=== PATIENT | female | born 1950 | race Caucasian/White ===

== ENCOUNTER 2021-01-12 08:22 | Inpatient (IN) | payer OTHER, SELFPAY ==
[2021-01-12] VITALS (15 sets, daily range): BP systolic 123–214; BP diastolic 37–92; PULSE 63–117; RESP 16–21; TEMP 36.6–37.3; O2SAT 89–100; BMI 48.4
--- NOTE | 2021-01-12 | ECG_ITS ---
Test Reason : REPEAT Blood Pressure : / mmHG Vent. Rate : 069 BPM Atrial Rate : 069 BPM P-R Int : 188 ms QRS Dur : 090 ms QT Int : 400 ms P-R-T Axes : 051 -11 036 degrees QTc Int : 428 ms Normal sinus rhythm Septal infarct (cited on or before 08-SEP-2008) Left axis deviation Abnormal ECG When compared with ECG of 12-JAN-2021 10:11, Vent. rate has decreased BY 49 BPM Questionable change in initial forces of Anterior leads Referred By: Anne-Marie Hollingsworth Electronically Signed By:MARGIE HARRINGTON MD
--- NOTE | ~2021-01-12 | XR_ITS ---
EXAMINATION: XR CHEST CLINICAL INFORMATION: Dyspnea. COMPARISON: Chest 07/24/2012 TECHNIQUE: 2 views of the chest were obtained. FINDINGS: The lungs are hypoexpanded with no acute pneumonic process seen. The pulmonary vascularity is increased. The heart size is enlarged. Bone windows mild spondylosis. XR/XR chest 2V IMPRESSION: Mild cardiomegaly with. Mild increased pulmonary vascularity question early congestion. Correlate with clinical exam. No acute pneumonic process.
--- NOTE | ~2021-01-12 | CT_ITS ---
EXAMINATION: CT HEAD WITHOUT CONTRAST CLINICAL INFORMATION: Confusion. Fall COMPARISON: None. TECHNIQUE: Multidetector CT examination of the head is performed without contrast. This CT examination was performed using dose optimization techniques as appropriate, variously including the following: *Automated exposure control *Adjustment of mA and/or kV according to patient size (this includes techniques or standardized protocols for targeted exams where dose is matched to indication/reason for exam; i.e. extremities or head) *Use of iterative reconstruction technique DLP: 670 mGy-cm FINDINGS: Study limited by motion artifact There is no evidence of a recent intracranial hemorrhage or extra-axial collection. The midline structures are nondisplaced. The ventricles, cisterns, and sulci are within normal limits. There is no evidence of an intra-axial mass. There are no suspicious focal areas of abnormal brain attenuation. The romero-white interface is within normal limits. There is no evidence of acute territorial infarct. The paranasal sinuses and mastoids are within normal limits. CT/CT head/brain wo con IMPRESSION: 1. There is no evidence of a recent intracranial hemorrhage. 2. No acute infarct. 3. There is some motion artifact.
--- NOTE | ~2021-01-12 | XR_ITS ---
EXAMINATION: XR CHEST CLINICAL INFORMATION: Low oxygen saturation. COMPARISON: Most recent chest radiograph dated 01/12/2021 TECHNIQUE: Frontal view of the chest was obtained. FINDINGS: Hypoinflation of the lungs with interstitial prominence and patchy left lower lobe airspace opacities, which may represent atelectasis versus early infiltrates. Findings are similar when compared to the prior examination. No pleural effusion or pneumothorax. Stable cardiomediastinal silhouette. XR/XR chest 1V IMPRESSION: Interstitial prominence with patchy left lower lobe airspace opacities, similar when compared to the prior examination.
--- NOTE | ~2021-01-12 | XR_ITS ---
EXAMINATION: XR TIBIA AND FIBULA, RIGHT CLINICAL INFORMATION: Deformity COMPARISON: Radiographs from 12/20/2015 TECHNIQUE: AP and lateral views of the right tibia and fibula were obtained. FINDINGS: At the level of the knee, osteophytes and subchondral cysts are noted at the degenerated patellofemoral compartment. Small marginal osteophytes are present at the lateral tibiofemoral compartment. An oblique fracture of the distal fibular metadiaphysis (Stevenson B injury) is new compared to 12/20/2015. Although fracture lucency is seen, there is also mature appearing periosteal new bone formation, which indicates that this is a more subacute or chronic injury. Also, there is a medially displaced fracture of the medial malleolus and probable posterior malleolar fragment, not optimally visualized on these radiograph focused on the entire extremity rather than the ankle. The relatively smooth margins of the medial malleolar fragment suggests that this is from more remote trauma. There is medial displacement of the talus with the medial malleolar fragment. Recommend obtaining radiographs focused on the ankle. Peripheral vessels are calcified. XR/XR tibia fibula RT 2V IMPRESSION: There are fractures of the distal tibia and fibula that are new compared to 12/20/2015 but do not have an acute appearance. Query if there is any known date of trauma in the last several months. The talus is laterally displaced along with the medial malleolar fragment. Recommend acquiring radiographs focused on the ankle. Mild osteoarthritis of the patellofemoral and lateral tibiofemoral compartment of the right knee.
--- NOTE | ~2021-01-12 | CT_ITS ---
EXAMINATION: CT ABDOMEN AND PELVIS WITHOUT CONTRAST CLINICAL INFORMATION: Abdominal pain, nausea and vomiting. COMPARISON: None TECHNIQUE: Multidetector volumetric imaging was performed from the superior aspect of the liver through the pubic symphysis. Sagittal and coronal reformatted images were obtained on the technologist's workstation. This CT examination was performed using dose optimization techniques as appropriate, variously including the following: *Automated exposure control *Adjustment of mA and/or kV according to patient size (this includes techniques or standardized protocols for targeted exams where dose is matched to indication/reason for exam; i.e. extremities or head) *Use of iterative reconstruction technique DLP: 1156 mGy-cm FINDINGS: LOCALIZER IMAGES: Obese body habitus. LUNG BASES: Mild atelectasis in dependent aspect of each lower lobe. Mitral valve annulus is calcified. There is atherosclerotic calcification of coronary arteries. Scattered calcifications and fibroglandular tissue of the breasts. There is likely chronic dystrophic calcification of the left breast from prior carcinoma treatment. There is mild skin thickening of the left breast. Note that there are no recent breast imaging exams available in the electronic picture archive. LIVER: The liver has normal size, shape, and attenuation. No evidence of liver mass. GALLBLADDER AND BILIARY TREE: Gallbladder is surgically absent. No bile duct dilatation. PANCREAS: There is moderate atrophy of the pancreas. No edema, pancreatic ductal dilatation or mass. SPLEEN: Normal. ADRENAL GLANDS: Normal. KIDNEYS AND URETERS: Mild bilateral renal cortical atrophy. The kidneys have lobulated contour. No noncontrast imaging evidence of renal mass. The renal arteries are calcified. No nephrolithiasis or hydroureteronephrosis. BLADDER: Normal. No calculi or wall thickening. BOWEL AND PERITONEUM: Prior gastric surgery with staple line observed along the proximal stomach. There is no evidence of gastric wall thickening. No dilated bowel loops. No overt findings of acute inflammatory change or obstruction along the gastrointestinal tract. The appendix is normal. ABDOMINAL WALL: There is edema of subcutaneous tissues of the abdominal wall, particularly the lower abdominal wall pannus and left flank. No focal fluid collection. There are fat-containing epigastric hernias of the anterior abdominal wall. Also, further inferiorly at the level of the umbilicus, there is a 12.5 x 5 x 9.3 cm hernia sac that contains fat and unobstructed small bowel. VASCULATURE: The abdominal aorta and branch vessels are calcified. No aortic aneurysm. No retroperitoneal hematoma. LYMPH NODES: No pathologic sized lymph nodes in the abdomen or pelvis. No inguinal lymphadenopathy. PELVIC VISCERA: No significant findings. There appears to be a nabothian cyst of the posterior cervix. No adnexal mass or pelvic free fluid. SKELETAL: Bones are diffusely osteopenic. Multilevel disc degenerative changes with vacuum disc phenomenon and osteophytes of the visualized lower thoracic spine. Chronic, severe degenerative disc disease at L5-S1. Facet arthropathy and mild, grade 1 anter[address]isthesis at L4-L5. CT/CT abdomen pelvis wo con IMPRESSION: * Morbid obesity with findings of edema in subcutaneous tissues of the abdominal wall and left flank. No focal fluid collection. * There are several midline abdominal wall hernias, largest at level of umbilicus containing fat and unobstructed small bowel. * The calcifications and mild skin thickening of the left breast are likely sequela of prior treatment for breast carcinoma. * There is extensive vascular calcifications, including renal arteries. Both kidneys are mildly atrophied. No evidence of nephrolithiasis or hydroureteronephrosis.
--- NOTE | ~2021-01-12 | NM_ITS ---
Myocardial perfusion study Indication: NSTEMI Technique: The patient was brought in for a Lexiscan perfusion study on 01/15/2021. Patient performed low-level exercise and was injected 0.4 mg of Lexiscan intravenously. Within a minute of injection, 45 mCi of sestamibi was given intravenously. Images were obtained using the SPECT gamma camera interlaced with the gating device. Images were obtained in supine position. Resting perfusion study was performed on 01/14/2021. Patient was administered 45 mCi of sestamibi intravenously at rest. Images were then obtained in supine position. Images obtained with and without CT attenuation. Total DLP 195 mGy-cm. Images were processed with the software and compared side to side in short axis, horizontal long axis and vertical long axis views. Findings: The stress perfusion study showed nonattenuated images show absent uptake in the distal septal, severely reduced uptake in the septum and mildly reduced uptake in the distal anterior and apex of the LV myocardium. The anterolateral, lateral, inferolateral and inferior wall are normally perfused. Attenuation corrected images show absent uptake in the apex and distal septum as well as moderately reduced uptake in the septum of the LV myocardium.. The gated study shows normal LV systolic function with calculated LVEF of 59%. LV cavity is mildly dilated size. The gated study shows reduced wall thickening and contraction of anteroseptal and apical segments. Resting study shows nontender images show improved uptake in the septum as well as the apex of the LV myocardium.. Gating at rest reveals anteroseptal wall motion abnormality with ejection fraction at 56%. The findings are consistent with septal as well as apical ischemia in mid to distal LAD territory. NM/NM radha perf SPECT rest & str Impression: 1. Myocardial perfusion imaging study shows septal and apical ischemia in mid to distal LAD territory 2. Gated LVEF is 59% with stress and 66% with stress 3. Transient ischemic dilatation present EKG is nondiagnostic for ischemia
--- NOTE | 2021-01-12 09:01 | ECG_ITS ---
Test Reason : WEAKNESS Blood Pressure : / mmHG Vent. 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
--- NOTE | 2021-01-12 09:03 | ED_ITS ---
HPI - General Adult General Chief complaint: Weakness Stated complaint: WEAKNESS/2FALLS Time Seen by Provider: 01/12/21 08:46 Source: patient and old records reviewed Limitations: altered mental status History of Present Illness HPI narrative: Patient from home. Apparently with a history of insulin- dependent diabetes and hypertension, presents after she fell last night. Apparently she lives alone. Per EMS her house is very disheveled. She has a history of transmetatarsal amputation of the left foot secondary to diabetes per patient. She is somewhat somnolent and confused and unable to provide details of when the issue started. She states she has been feeling weak and tired. Positive dyspnea for unclear duration. She denies fevers or chills. She denies urinary symptoms. She states she has been vaccinated against COVID but does not know when Related Data Home Medications Medication Instructions Recorded Confirmed Lasix 40 mg PO DAILY 01/12/21 01/12/21 atorvastatin 80 mg tablet 1 tab PO DAILY 01/12/21 01/12/21 dulaglutide 0.75 mg/0.5 mL 0.5 ml SUBCUT QWEEK 01/12/21 01/12/21 subcutaneous pen injector (Trulicity) insulin lispro 100 unit/mL 50 unit SUBCUT TID 01/12/21 01/12/21 subcutaneous pen (Humalog KwikPen (U-100) Insulin) omeprazole 20 mg PO DAILY 01/12/21 01/12/21 Previous Rx's Medication Instructions Recorded isosorbide mononitrate 30 mg 30 mg PO DAILY #90 tab 04/25/20 tablet,extended release 24 hr nitroglycerin 0.4 mg sublingual 0.4 mg SUBLINGUAL Q5M PRN 30 Days 11/11/20 tablet #25 tab Allergies Allergy/AdvReac Type Severity Reaction Status Date / Time Sulfa (Sulfonamide Allergy Mild LOOPY, Verified 01/12/21 09:28 Antibiotics) memory Review of Systems Review of Systems: Patient very vague in unable to complete accurate review of systems Constitutional: Constitutional: Reports fatigue Endocrine: Endocrine: Reports fatigue PMFSH Past Medical History Medical History Amputation of left foot CAD (coronary artery disease) Diabetes High cholesterol HTN (hypertension) Kidney disease Social History Social History Patient Tobacco Use Status: Never used Tobacco Use of substances other than those prescribed or required for medical reasons: No Advance Directives: No Advance Directives Information Provided: No Physical Exam Vital Signs: Vital Signs: Last Vital Signs Temp 98.0 F 01/12/21 13:35 Pulse 92 01/12/21 14:45 Resp 16 01/12/21 13:47 BP 199/76 H 01/12/21 14:45 Pulse Ox 98 01/12/21 13:35 Body Mass Index 48.4 Const: Other: Obese patient. Mildly tachypneic. Verbal but confused HENMT: Other: Normocephalic atraumatic without obvious signs of external trauma Eyes: Other: Pupils equal round reactive to light Neck: Other: No meningismus Resp: Other: Tachypnea. Clear bilaterally Cardio: Other: Tachycardic. No murmurs rubs or gallops GI: Other: Soft nontender nondistended. Normoactive bowel sounds Skin: Other: Warm pink and dry. Bilateral lower leg wraps. Skin proximal to the wraps without erythema Neuro: Other: Patient is confused. Nonfocal however Course Course Course Narrative: Mental status change with recent fall. Intracranial hemorrhage Sepsis Renal failure Liver failure Hepatic encephalopathy Electrolyte imbalance Dehydration Diabetic ketoacidosis Hyperosmolar nonketotic hyperglycemic state Treated with IV fluids Await labs Workup so far significant for labs that show an elevated white count. Glucose is 600. High sensitivity troponin is 2300. Troponin repeated and await delta. EKG shows sinus rhythm without ST elevation or depression. Patient denies chest pain at this time. Her chest x-ray shows mild vascular congestion. Blood pressure is still elevated to 208/78. Despite this patient appear septic. Lactic acid is slightly above 2. After run wrapping her legs, her left leg is clearly cellulitic. Warm erythematous from the foot to the knee. There is approximately a 2.5 cm by 2.5 cm acute wound on her heel. No active drainage at the moment, but likely the source of her cellulitis Will treat with nitropaste and aspirin for hypertension and pulmonary c ongestion. I hesitate to give diuretics at this time given mixed picture with probable infection and volume depletion. Will also not treated with full sepsis bolus as lactic acid is not above 4 and s he is not hypotensive. And she has pulmonary congestion on the x-ray as well. 11:57 a.m.. Case discussed with Cardiology, Dr. Caban. Will start heparin therapy. Medical Decision Making MDM Narrative Medical decision making narrative: Critical care time secondary to high acuity patient with likely mixed picture of hyperglycemia, sepsis, and myocardial strain in the setting of mild pulmonary edema. Treated with broad-spectrum antibiotics. Repeat troponins. And hospitalization Lab Data Result diagrams: 01/12/21 13:27 01/12/21 09:25 Labs: Lab Results 01/12/21 01/12/21 01/12/21 Range/Units 09:25 09:25 09:25 WBC 16.1 H (4.8-10.8) X10*3/uL RBC 4.81 (4.20-5.50) X10*6/uL Hgb 14.5 (12.0-16.0) g/dl Hct 45.0 (37-47) % MCV 93.6 (80-98) fL MCH 30.1 (27.0-33.0) pg MCHC 32.2 (31.0-35.0) g/dl RDW 13.2 (11.0-16.0) % Plt Count 255 (160-400) X10*3/uL MPV 11.5 (9.4-12.3) fL Immature Gran % (Auto) 0.4 (0.0-0.4) % Neut % (Auto) 90.5 H (45-73) % Lymph % (Auto) 4.5 L (20-40) % [place] % (Auto) 4.4 (2-11) % Eos % (Auto) 0.0 (0-4) % Baso % (Auto) 0.2 (0-2) % Lymph # (Auto) 0.7 L (1.2-4.9) X10*3/uL [place] # (Auto) 0.7 (0.1-1.2) X10*3/uL Eos # (Auto) 0.0 (0.0-0.4) X10*3/uL Baso # (Auto) 0.0 (0.0-0.2) X10*3/uL Abs Immat Gran (auto) 0.07 H (0.00-0.03) X10*3/uL Absolute Neuts (auto) 14.6 H (2.0-8.3) X10*3/uL Absolute Nucleated RBC 0.000 (0.0-0.012) X10*3/uL Nucleated RBC % (auto) 0.0 (0.0-0.2) /100WBC Smear Tech's Comments VERIFIED ESR (0-20) MM/HR PT (9.9-13.0) SEC INR (0.9-1.1) PTT (Heparin Protocol) (53-77.9) SEC VBG pH (7.32-7.43) VBG pCO2 mmHg VBG pO2 mmHg VBG HCO3 (22-26) mmol/L VBG O2 Saturation % VBG Base Excess mmol/L Sodium 133 L (135-145) mmol/L Potassium 5.1 (3.3-5.1) mmol/L Chloride 97 (96-108) mmol/L Carbon Dioxide 24 (22-29) mmol/L Anion Gap 17 (12-20) BUN 30 H (9-16) mg/dL Creatinine 2.22 H (0.5-1.4) mg/dL Estim Creat Clear Calc 33.0 Estimated GFR 22 POC Glucose (60-115) mg/dL Random Glucose 602 H* (60-115) mg/dL Estimat Average Glucose mg/dL Hemoglobin A1c % % Lactic Acid 2.1 H* (0.5-2.0) mmol/L Lactic Acid Fup @ 2Hr (0.5-2.0) mmol/L Calcium 9.7 (8.4-10.2) mg/dL Total Bilirubin 1.3 H (0.0-1.0) mg/dL AST 30 (5-31) U/L ALT 11 (0-31) U/L Alkaline Phosphatase 109 (39-117) U/L Ammonia (13-55) umol/L Total Creatine Kinase 336 H (26-140) U/L Troponin I High Sens (<3.5-17.0) ng/L C-Reactive Protein 25.59 H (< or = 0.50) mg/dL B-Natriuretic Peptide (<100) pg/mL Total Protein 7.8 (6.5-8.0) g/dL Albumin 3.6 (3.5-5.0) g/dL Lipase 10 (8-78) U/L Procalcitonin ng/mL Urine Color Urine Appearance Urine pH (5.0-8.0) Ur Specific [place] (1.005-1.025) Urine Protein (NEG-TRACE) MG/DL Urine Glucose (UA) (NEG) MG/DL Urine Ketones (NEG) MG/DL Urine Blood (NEG) Urine Nitrite (NEG) Ur Leukocyte Esterase (NEG) Urine RBC (0) /HPF Urine WBC (0-4) /HPF Ur Squamous Epith Cells /LPF Urine Bacteria /LPF Acetone, Qual (Negative) Coronavirus (PCR) (Negative) Influenza Type A (PCR) (Negative) Influenza Type B (PCR) (Negative) RSV RNA Qual (PCR) (Negative) 01/12/21 01/12/21 01/12/21 Range/Units 09:25 09:25 09:25 WBC (4.8-10.8) X10*3/uL RBC (4.20-5.50) X10*6/uL Hgb (12.0-16.0) g/dl Hct (37-47) % MCV (80-98) fL MCH (27.0-33.0) pg MCHC (31.0-35.0) g/dl RDW (11.0-16.0) % Plt Count (160-400) X10*3/uL MPV (9.4-12.3) fL Immature Gran % (Auto) (0.0-0.4) % Neut % (Auto) (45-73) % Lymph % (Auto) (20-40) % [place] % (Auto) (2-11) % Eos % (Auto) (0-4) % Baso % (Auto) (0-2) % Lymph # (Auto) (1.2-4.9) X10*3/uL [place] # (Auto) (0.1-1.2) X10*3/uL Eos # (Auto) (0.0-0.4) X10*3/uL Baso # (Auto) (0.0-0.2) X10*3/uL Abs Immat Gran (auto) (0.00-0.03) X10*3/uL Absolute Neuts (auto) (2.0-8.3) X10*3/uL Absolute Nucleated RBC (0.0-0.012) X10*3/uL Nucleated RBC % (auto) (0.0-0.2) /100WBC Smear Tech's Comments ESR (0-20) MM/HR PT (9.9-13.0) SEC INR (0.9-1.1) PTT (Heparin Protocol) (53-77.9) SEC VBG pH (7.32-7.43) VBG pCO2 mmHg VBG pO2 mmHg VBG HCO3 (22-26) mmol/L VBG O2 Saturation % VBG Base Excess mmol/L Sodium (135-145) mmol/L Potassium (3.3-5.1) mmol/L Chloride (96-108) mmol/L Carbon Dioxide (22-29) mmol/L Anion Gap (12-20) BUN (9-16) mg/dL Creatinine (0.5-1.4) mg/dL Estim Creat Clear Calc Estimated GFR POC Glucose (60-115) mg/dL Random Glucose (60-115) mg/dL Estimat Average Glucose mg/dL Hemoglobin A1c % % Lactic Acid (0.5-2.0) mmol/L Lactic Acid Fup @ 2Hr (0.5-2.0) mmol/L Calcium (8.4-10.2) mg/dL Total Bilirubin (0.0-1.0) mg/dL AST (5-31) U/L ALT (0-31) U/L Alkaline Phosphatase (39-117) U/L Ammonia 24 (13-55) umol/L Total Creatine Kinase (26-140) U/L Troponin I High Sens 2302.6 H* (<3.5-17.0) ng/L C-Reactive Protein (< or = 0.50) mg/dL B-Natriuretic Peptide 551 H (<100) pg/mL Total Protein (6.5-8.0) g/dL Albumin (3.5-5.0) g/dL Lipase (8-78) U/L Procalcitonin ng/mL Urine Color Urine Appearance Urine pH (5.0-8.0) Ur Specific [place] (1.005-1.025) Urine Protein (NEG-TRACE) MG/DL Urine Glucose (UA) (NEG) MG/DL Urine Ketones (NEG) MG/DL Urine Blood (NEG) Urine Nitrite (NEG) Ur Leukocyte Esterase (NEG) Urine RBC (0) /HPF Urine WBC (0-4) /HPF Ur Squamous Epith Cells /LPF Urine Bacteria /LPF Acetone, Qual (Negative) Coronavirus (PCR) NEGATIVE (Negative) Influenza Type A (PCR) NEGATIVE (Negative) Influenza Type B (PCR) NEGATIVE (Negative) RSV RNA Qual (PCR) NEGATIVE (Negative) 01/12/21 01/12/21 01/12/21 Range/Units 09:25 09:25 11:05 WBC (4.8-10.8) X10*3/uL RBC (4.20-5.50) X10*6/uL Hgb (12.0-16.0) g/dl Hct (37-47) % MCV (80-98) fL MCH (27.0-33.0) pg MCHC (31.0-35.0) g/dl RDW (11.0-16.0) % Plt Count (160-400) X10*3/uL MPV (9.4-12.3) fL Immature Gran % (Auto) (0.0-0.4) % Neut % (Auto) (45-73) % Lymph % (Auto) (20-40) % [place] % (Auto) (2-11) % Eos % (Auto) (0-4) % Baso % (Auto) (0-2) % Lymph # (Auto) (1.2-4.9) X10*3/uL [place] # (Auto) (0.1-1.2) X10*3/uL Eos # (Auto) (0.0-0.4) X10*3/uL Baso # (Auto) (0.0-0.2) X10*3/uL Abs Immat Gran (auto) (0.00-0.03) X10*3/uL Absolute Neuts (auto) (2.0-8.3) X10*3/uL Absolute Nucleated RBC (0.0-0.012) X10*3/uL Nucleated RBC % (auto) (0.0-0.2) /100WBC Smear Tech's Comments ESR (0-20) MM/HR PT (9.9-13.0) SEC INR (0.9-1.1) PTT (Heparin Protocol) (53-77.9) SEC VBG pH (7.32-7.43) VBG pCO2 mmHg VBG pO2 mmHg VBG HCO3 (22-26) mmol/L VBG O2 Saturation % VBG Base Excess mmol/L Sodium (135-145) mmol/L Potassium (3.3-5.1) mmol/L Chloride (96-108) mmol/L Carbon Dioxide (22-29) mmol/L Anion Gap (12-20) BUN (9-16) mg/dL Creatinine (0.5-1.4) mg/dL Estim Creat Clear Calc Estimated GFR POC Glucose (60-115) mg/dL Random Glucose (60-115) mg/dL Estimat Average Glucose mg/dL Hemoglobin A1c % % Lactic Acid (0.5-2.0) mmol/L Lactic Acid Fup @ 2Hr (0.5-2.0) mmol/L Calcium (8.4-10.2) mg/dL Total Bilirubin (0.0-1.0) mg/dL AST (5-31) U/L ALT (0-31) U/L Alkaline Phosphatase (39-117) U/L Ammonia (13-55) umol/L Total Creatine Kinase (26-140) U/L Troponin I High Sens 3431.0 H* (<3.5-17.0) ng/L C-Reactive Protein (< or = 0.50) mg/dL B-Natriuretic Peptide (<100) pg/mL Total Protein (6.5-8.0) g/dL Albumin (3.5-5.0) g/dL Lipase (8-78) U/L Procalcitonin 0.49 ng/mL Urine Color Urine Appearance Urine pH (5.0-8.0) Ur Specific [place] (1.005-1.025) Urine Protein (NEG-TRACE) MG/DL Urine Glucose (UA) (NEG) MG/DL Urine Ketones (NEG) MG/DL Urine Blood (NEG) Urine Nitrite (NEG) Ur Leukocyte Esterase (NEG) Urine RBC (0) /HPF Urine WBC (0-4) /HPF Ur Squamous Epith Cells /LPF Urine Bacteria /LPF Acetone, Qual Negative (Negative) Coronavirus (PCR) (Negative) Influenza Type A (PCR) (Negative) Influenza Type B (PCR) (Negative) RSV RNA Qual (PCR) (Negative) 01/12/21 01/12/21 01/12/21 Range/Units 11:24 11:32 12:10 WBC (4.8-10.8) X10*3/uL RBC (4.20-5.50) X10*6/uL Hgb (12.0-16.0) g/dl Hct (37-47) % MCV (80-98) fL MCH (27.0-33.0) pg MCHC (31.0-35.0) g/dl RDW (11.0-16.0) % Plt Count (160-400) X10*3/uL MPV (9.4-12.3) fL Immature Gran % (Auto) (0.0-0.4) % Neut % (Auto) (45-73) % Lymph % (Auto) (20-40) % [place] % (Auto) (2-11) % Eos % (Auto) (0-4) % Baso % (Auto) (0-2) % Lymph # (Auto) (1.2-4.9) X10*3/uL [place] # (Auto) (0.1-1.2) X10*3/uL Eos # (Auto) (0.0-0.4) X10*3/uL Baso # (Auto) (0.0-0.2) X10*3/uL Abs Immat Gran (auto) (0.00-0.03) X10*3/uL Absolute Neuts (auto) (2.0-8.3) X10*3/uL Absolute Nucleated RBC (0.0-0.012) X10*3/uL Nucleated RBC % (auto) (0.0-0.2) /100WBC Smear Tech's Comments ESR (0-20) MM/HR PT (9.9-13.0) SEC INR (0.9-1.1) PTT (Heparin Protocol) (53-77.9) SEC VBG pH (7.32-7.43) VBG pCO2 mmHg VBG pO2 mmHg VBG HCO3 (22-26) mmol/L VBG O2 Saturation % VBG Base Excess mmol/L Sodium (135-145) mmol/L Potassium (3.3-5.1) mmol/L Chloride (96-108) mmol/L Carbon Dioxide (22-29) mmol/L Anion Gap (12-20) BUN (9-16) mg/dL Creatinine (0.5-1.4) mg/dL Estim Creat Clear Calc Estimated GFR POC Glucose 447 H* (60-115) mg/dL Random Glucose (60-115) mg/dL Estimat Average Glucose mg/dL Hemoglobin A1c % % Lactic Acid (0.5-2.0) mmol/L Lactic Acid Fup @ 2Hr 2.0 (0.5-2.0) mmol/L Calcium (8.4-10.2) mg/dL Total Bilirubin (0.0-1.0) mg/dL AST (5-31) U/L ALT (0-31) U/L Alkaline Phosphatase (39-117) U/L Ammonia (13-55) umol/L Total Creatine Kinase (26-140) U/L Troponin I High Sens (<3.5-17.0) ng/L C-Reactive Protein (< or = 0.50) mg/dL B-Natriuretic Peptide (<100) pg/mL Total Protein (6.5-8.0) g/dL Albumin (3.5-5.0) g/dL Lipase (8-78) U/L Procalcitonin ng/mL Urine Color STRAW Urine Appearance HAZY Urine pH 6.0 (5.0-8.0) Ur Specific [place] 1.015 (1.005-1.025) Urine Protein 2+ H (NEG-TRACE) MG/DL Urine Glucose (UA) >=1000 H (NEG) MG/DL Urine Ketones 15 (NEG) MG/DL Urine Blood 2+ H (NEG) Urine Nitrite NEG (NEG) Ur Leukocyte Esterase TRACE H (NEG) Urine RBC 5-9 H (0) /HPF Urine WBC 76-150 H (0-4) /HPF Ur Squamous Epith Cells TRACE /LPF Urine Bacteria 4+ /LPF Acetone, Qual (Negative) Coronavirus (PCR) (Negative) Influenza Type A (PCR) (Negative) Influenza Type B (PCR) (Negative) RSV RNA Qual (PCR) (Negative) 01/12/21 01/12/21 01/12/21 Range/Units 12:21 13:05 13:27 WBC 15.1 H (4.8-10.8) X10*3/uL RBC 4.31 (4.20-5.50) X10*6/uL Hgb 13.1 (12.0-16.0) g/dl Hct 39.8 (37-47) % MCV 92.3 (80-98) fL MCH 30.4 (27.0-33.0) pg MCHC 32.9 (31.0-35.0) g/dl RDW 13.1 (11.0-16.0) % Plt Count 224 (160-400) X10*3/uL MPV 11.3 (9.4-12.3) fL Immature Gran % (Auto) (0.0-0.4) % Neut % (Auto) (45-73) % Lymph % (Auto) (20-40) % [place] % (Auto) (2-11) % Eos % (Auto) (0-4) % Baso % (Auto) (0-2) % Lymph # (Auto) (1.2-4.9) X10*3/uL [place] # (Auto) (0.1-1.2) X10*3/uL Eos # (Auto) (0.0-0.4) X10*3/uL Baso # (Auto) (0.0-0.2) X10*3/uL Abs Immat Gran (auto) (0.00-0.03) X10*3/uL Absolute Neuts (auto) (2.0-8.3) X10*3/uL Absolute Nucleated RBC 0.000 (0.0-0.012) X10*3/uL Nucleated RBC % (auto) 0.0 (0.0-0.2) /100WBC Smear Tech's Comments ESR (0-20) MM/HR PT 12.9 (9.9-13.0) SEC INR 1.1 (0.9-1.1) PTT (Heparin Protocol) 32.7 L (53-77.9) SEC VBG pH (7.32-7.43) VBG pCO2 mmHg VBG pO2 mmHg VBG HCO3 (22-26) mmol/L VBG O2 Saturation % VBG Base Excess mmol/L Sodium (135-145) mmol/L Potassium (3.3-5.1) mmol/L Chloride (96-108) mmol/L Carbon Dioxide (22-29) mmol/L Anion Gap (12-20) BUN (9-16) mg/dL Creatinine (0.5-1.4) mg/dL Estim Creat Clear Calc Estimated GFR POC Glucose 389 H* (60-115) mg/dL Random Glucose (60-115) mg/dL Estimat Average Glucose mg/dL Hemoglobin A1c % % Lactic Acid (0.5-2.0) mmol/L Lactic Acid Fup @ 2Hr (0.5-2.0) mmol/L Calcium (8.4-10.2) mg/dL Total Bilirubin (0.0-1.0) mg/dL AST (5-31) U/L ALT (0-31) U/L Alkaline Phosphatase (39-117) U/L Ammonia (13-55) umol/L Total Creatine Kinase (26-140) U/L Troponin I High Sens (<3.5-17.0) ng/L C-Reactive Protein (< or = 0.50) mg/dL B-Natriuretic Peptide (<100) pg/mL Total Protein (6.5-8.0) g/dL Albumin (3.5-5.0) g/dL Lipase (8-78) U/L Procalcitonin ng/mL Urine Color Urine Appearance Urine pH (5.0-8.0) Ur Specific [place] (1.005-1.025) Urine Protein (NEG-TRACE) MG/DL Urine Glucose (UA) (NEG) MG/DL Urine Ketones (NEG) MG/DL Urine Blood (NEG) Urine Nitrite (NEG) Ur Leukocyte Esterase (NEG) Urine RBC (0) /HPF Urine WBC (0-4) /HPF Ur Squamous Epith Cells /LPF Urine Bacteria /LPF Acetone, Qual (Negative) Coronavirus (PCR) (Negative) Influenza Type A (PCR) (Negative) Influenza Type B (PCR) (Negative) RSV RNA Qual (PCR) (Negative) 01/12/21 01/12/21 01/12/21 Range/Units 13:27 13:31 13:35 WBC (4.8-10.8) X10*3/uL RBC (4.20-5.50) X10*6/uL Hgb (12.0-16.0) g/dl Hct (37-47) % MCV (80-98) fL MCH (27.0-33.0) pg MCHC (31.0-35.0) g/dl RDW (11.0-16.0) % Plt Count (160-400) X10*3/uL MPV (9.4-12.3) fL Immature Gran % (Auto) (0.0-0.4) % Neut % (Auto) (45-73) % Lymph % (Auto) (20-40) % [place] % (Auto) (2-11) % Eos % (Auto) (0-4) % Baso % (Auto) (0-2) % Lymph # (Auto) (1.2-4.9) X10*3/uL [place] # (Auto) (0.1-1.2) X10*3/uL Eos # (Auto) (0.0-0.4) X10*3/uL Baso # (Auto) (0.0-0.2) X10*3/uL Abs Immat Gran (auto) (0.00-0.03) X10*3/uL Absolute Neuts (auto) (2.0-8.3) X10*3/uL Absolute Nucleated RBC (0.0-0.012) X10*3/uL Nucleated RBC % (auto) (0.0-0.2) /100WBC Smear Tech's Comments ESR 51 H (0-20) MM/HR PT (9.9-13.0) SEC INR (0.9-1.1) PTT (Heparin Protocol) (53-77.9) SEC VBG pH 7.36 (7.32-7.43) VBG pCO2 39 mmHg VBG pO2 100 mmHg VBG HCO3 22 (22-26) mmol/L VBG O2 Saturation 98.0 % VBG Base Excess -2.2 mmol/L Sodium (135-145) mmol/L Potassium (3.3-5.1) mmol/L Chloride (96-108) mmol/L Carbon Dioxide (22-29) mmol/L Anion Gap (12-20) BUN (9-16) mg/dL Creatinine (0.5-1.4) mg/dL Estim Creat Clear Calc Estimated GFR POC Glucose (60-115) mg/dL Random Glucose (60-115) mg/dL Estimat Average Glucose 258 mg/dL Hemoglobin A1c % 10.6 % Lactic Acid (0.5-2.0) mmol/L Lactic Acid Fup @ 2Hr (0.5-2.0) mmol/L Calcium (8.4-10.2) mg/dL Total Bilirubin (0.0-1.0) mg/dL AST (5-31) U/L ALT (0-31) U/L Alkaline Phosphatase (39-117) U/L Ammonia (13-55) umol/L Total Creatine Kinase (26-140) U/L Troponin I High Sens (<3.5-17.0) ng/L C-Reactive Protein (< or = 0.50) mg/dL B-Natriuretic Peptide (<100) pg/mL Total Protein (6.5-8.0) g/dL Albumin (3.5-5.0) g/dL Lipase (8-78) U/L Procalcitonin ng/mL Urine Color Urine Appearance Urine pH (5.0-8.0) Ur Specific [place] (1.005-1.025) Urine Protein (NEG-TRACE) MG/DL Urine Glucose (UA) (NEG) MG/DL Urine Ketones (NEG) MG/DL Urine Blood (NEG) Urine Nitrite (NEG) Ur Leukocyte Esterase (NEG) Urine RBC (0) /HPF Urine WBC (0-4) /HPF Ur Squamous Epith Cells /LPF Urine Bacteria /LPF Acetone, Qual (Negative) Coronavirus (PCR) (Negative) Influenza Type A (PCR) (Negative) Influenza Type B (PCR) (Negative) RSV RNA Qual (PCR) (Negative) Critical Care Time Critical Care Time Critical Care Time: Yes Total Critical Care Time: 120 Attestation: The above critical care time excludes any time for separately billable procedures. Discharge Plan Discharge Clinical Impression: Acute hyperglycemia, Acute and subacute ischemic heart disease Sepsis Qualifiers: Sepsis type: sepsis due to unspecified organism Sepsis acute organ dysfunction status: with acute organ dysfunction Severe sepsis acute organ dysfunction type: encephalopathy Severe sepsis shock status: without septic shock Qualified Code(s): A41.9 - Sepsis, unspecified organism Patient Disposition: Admitted As Inpatient
[2021-01-12] MEDS: 0.9 % Sodium Chloride 500 ML IV (09:31)
[2021-01-12] MEDS: ondansetron HCL 4 MG/2 ML VIAL IVPUSH (09:31)
[2021-01-12 09:37] LABS: Basophils Percent Auto 0.2 % (0-2); Hemoglobin 14.5 g/dl (12.0-16.0); Imm Gran Abs Auto 0.07 X10*3/uL (0.00-0.03); Imm Gran Pct Auto 0.4 % (0.0-0.4); Lymphocytes Absolute Auto 0.7 X10*3/uL (1.2-4.9); Lymphocytes Percent Auto 4.5 % (20-40); MANUAL DIFF FLAG SCAN; Mean Corpuscular HGB Conc 32.2 g/dl (31.0-35.0); Mean Corpuscular Hemoglobin 30.1 pg (27.0-33.0); Mean Corpuscular Volume 93.6 fL (80-98); Mean Platelet Volume 11.5 fL (9.4-12.3); Monocytes Absolute Auto 0.7 X10*3/uL (0.1-1.2); Monocytes Percent Auto 4.4 % (2-11); Neutrophils Absolute Auto 14.6 X10*3/uL (2.0-8.3); Neutrophils Percent Auto 90.5 % (45-73); Platelet Count 255 X10*3/uL (160-400); Red Blood Count 4.81 X10*6/uL (4.20-5.50); Red Cell Distribution Width 13.2 % (11.0-16.0); SCAN SMEAR FLAG 1; White Blood Count 16.1 X10*3/uL (4.8-10.8)
[2021-01-12 09:39] LABS: Acetone, serum QL Negative (Negative)
[2021-01-12 09:41] LABS: Ammonia 24 umol/L (13-55)
[2021-01-12 09:46] LABS: Lactic Acid 2.1 mmol/L (0.5-2.0)
[2021-01-12 09:57] LABS: Alanine Aminotransferase 11 U/L (0-31); Albumin Level 3.6 g/dL (3.5-5.0); Alkaline Phosphatase 109 U/L (39-117); Anion Gap 17 (12-20); Aspartate Amino Transferase 30 U/L (5-31); Bilirubin Total 1.3 mg/dL (0.0-1.0); Blood Urea Nitrogen 30 mg/dL (9-16); Calcium 9.7 mg/dL (8.4-10.2); Carbon Dioxide 24 mmol/L (22-29); Chloride 97 mmol/L (96-108); Estimated Glomerular Filt Rate 22; Glucose Random 602 mg/dL (60-115); Lipase 10 U/L (8-78); Potassium 5.1 mmol/L (3.3-5.1); Sodium 133 mmol/L (135-145); Total Protein 7.8 g/dL (6.5-8.0)
[2021-01-12 09:58] LABS: SLIDE REVIEW VERIFIED
[2021-01-12 10:07] LABS: B Type Natriuretic Peptide 551 pg/mL (<100)
[2021-01-12 10:25] LABS: Influenza A PCR NEGATIVE (Negative); Influenza B PCR NEGATIVE (Negative); Resp Syncy Virus RNA Qual PCR NEGATIVE (Negative); SARS COV2 PCR INHOUSE NEGATIVE (Negative)
[2021-01-12] MEDS: Aspirin Enteric Coated 325 MG TABLET.DR PO (10:25)
[2021-01-12] MEDS: Insulin Regular, Human 100 UNIT/ML 3 ML VIAL 10 UNIT IVPUSH (10:25)
--- NOTE | 2021-01-12 10:32 | PC.NURSE ---
Pt coming from home, reports nausea and generalized weakness x 2 days. PER ems living conditions unkempt, pt reports [employer] services three/week. 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 B/L legs wrapped and brace on left. Pt with elevated POC, states not taking meds/insuling at home x 2 days d/t not feeling well. Denies chest pain but reports left arm pain but unable to rate on pain scale and give pain description. Skin is pink, hot and dry. Sinus tach on tele. HTN. Alert/oriented but falls asleep easily and reports fatigue. Brother Duncan contact home [phone] and cell [phone] ASA given and Insulin per [facility] Doty to be placed
[2021-01-12] MEDS: Piperacillin Sodium/Tazobactam 3.375 GM in 0.9 % Sodium Chloride 50 ML IV (10:46)
[2021-01-12 11:28] LABS: Reflex Lactate? Lactic Acid Added
[2021-01-12] MEDS: vancomycin HCL 1,500 MG in 0.9 % Sodium Chloride 500 ML 333.33 MG IV (11:32)
[2021-01-12 11:34] LABS: Appearance Urine HAZY; Color Urine STRAW; Glucose Urine UA >=1000 MG/DL (NEG); Leukocyte Esterase Urine TRACE (NEG); Nitrite Urine NEG (NEG); Specific Gravity - Urine 1.015 (1.005-1.025); UACC Culture Trigger YES; Urine Blood 2+ (NEG); Urine Ketones 15 MG/DL (NEG); Urine Protein 2+ MG/DL (NEG-TRACE)
[2021-01-12 11:36] LABS: Glucose, Whole Blood 447 mg/dL (60-115)
[2021-01-12] MEDS: Acetaminophen 325 MG TABLET 650 MG PO (11:39)
[2021-01-12 11:40] LABS: Bacteria Urine 4+ /LPF; Squamous Epithelial Cell Urine TRACE /LPF
[2021-01-12] MEDS: Nitroglycerin 2 % Oint 1 GM Packet 1 INCH TRANSDERMA (11:40)
--- NOTE | 2021-01-12 11:47 | PC.NURSE ---
Repeat troponin trending up, Per Dr Vanegas [facility] to be consulted. Pt continues to deny chest pain but persistent left arm discomfort. Legs unwrapped, left leg cellulitic and warm to touch. ABX given and Vanco currently infusing. Doty inserted and urine spec sent. Sinus tach ont ally but hr trending down, currently 113. Tylenol given for fever and nitro paste 1 inch to left chest.
[2021-01-12 12:31] LABS: INTERNATIONAL NORM RATIO 1.1 (0.9-1.1); Prothrombin Time 12.9 SEC (9.9-13.0)
[2021-01-12 12:34] LABS: PTT Heparin Drip 32.7 SEC (53-77.9)
--- NOTE | 2021-01-12 13:25 | PC.NURSE ---
Awaited baseline coags prior to heparin gtt. At this time new protocol Heparin onfusion needed, pharmacy and Dr Vanegas adjusting order at this time, will start gtt when completed
[2021-01-12] MEDS: Metoprolol Tartrate 5 MG/5 ML VIAL IVPUSH (13:31)
[2021-01-12 13:32] LABS: Glucose, Whole Blood 389 mg/dL (60-115)
--- NOTE | 2021-01-12 13:33 | PC.NURSE ---
Dr uKmar and Dane Cunningham to bedside for bedside ultrasound at this time. Metoprolol given for htn
[2021-01-12 13:35] LABS: Hematocrit 39.8 % (37-47); Hemoglobin 13.1 g/dl (12.0-16.0); Mean Corpuscular HGB Conc 32.9 g/dl (31.0-35.0); Mean Corpuscular Hemoglobin 30.4 pg (27.0-33.0); Mean Corpuscular Volume 92.3 fL (80-98); Mean Platelet Volume 11.3 fL (9.4-12.3); Platelet Count 224 X10*3/uL (160-400); Red Blood Count 4.31 X10*6/uL (4.20-5.50); Red Cell Distribution Width 13.1 % (11.0-16.0); White Blood Count 15.1 X10*3/uL (4.8-10.8)
[2021-01-12 13:40] LABS: Venous Blood Gas Refer to POC result
[2021-01-12 13:40] LABS: VBG Base Excess -2.2 mmol/L; VBG HCO3 22 mmol/L (22-26); VBG pCO2 39 mmHg; VBG pH 7.36 (7.32-7.43); VBG pO2 100 mmHg
[2021-01-12] MEDS: Heparin Sodium,Porcine/1/2NS 25,000 UNIT/250 ML IV.SOLN 10 UNIT IVCONT (13:42)
--- NOTE | 2021-01-12 13:52 | PM.IMHP ---
History of Present Illness Date of Service: 01/12/21 Attending physician on admission: Benjamin Cunningham Chief Complaint: left foot cellulitis , nstemi , dm with hyperglycemia 70-year-old female who came to the hospital-because she fell down day before yesterday and last night. She said that she felt dizzy and she was feeling some confusion also and that is how she fell down. She said that she did did not lose consciousness, in addition she is having 3-4 days of chest pain left side going to her left arm for which she did not talk to her primary. Patient was still having chest pain until this morning and even when she came to the hospital-but subsequently when I saw the patient chest pain seems to be resolved. She was also initially confused and altered mental status as per the ED notes but when I saw the patient is cleared out a lot and could able to answer most of the questions. She is not sure whether she had any leg pain or erythema she said she could not able to see her leg well because she has cataracts surgeries. Denies any new complaint of shortness of breath or abdominal pain or fever or chills or nausea or vomiting Denies any cough Denies any weakness or numbness. Past medical history colbert: History of diabetes, hypertension, hyperlipidemia, history of CO with 2 stents in the past, DJD, chronic renal insufficiency, anxiety, history of breast cancer with lumpectomy and radiation, also history of broken left shoulder. History of orthostasis Past surgical history: As above in addition had hiatal hernia surgery as central scar in the abdominal wall. Also has history of left foot diabetic ulcer and also has amputation. Socially: Lives alone has [employer]. No smoking, recreational drug, alcohol use. Lab imaging and EKG reviewed personally and interpreted: Patient has WBC count of 16 with left shift tachycardia, EKG shows some lateral T-wave changes and poor R-wave we have progression? chronic, Creatinine is around 2.2 range? Question if chronic because in last in 2013 was creatinine around 1.6-1.8 range. Lactic acid level was 2.1 repeat pending Troponin: [id number]. Mild pyuria and bacteriuria, 2+ protein. Right leg x-ray shows fracture of distal tibia and fibula ? ,talus laterally displaced. Review of Systems Review of Systems: As above. Yes all other systems are reviewed and are negative [facility] Medical History Amputation of left foot CAD (coronary artery disease) Diabetes High cholesterol HTN (hypertension) Kidney disease Pertinent family history: Mother has diabetes Further has hypercholesteremia Social History Patient Tobacco Use Status: Never used Tobacco Use of substances other than those prescribed or required for medical reasons: No Advance Directives: No Advance Directives Information Provided: No Meds Allergies Allergy/AdvReac Type Severity Reaction Status Date / Time Sulfa (Sulfonamide Allergy Mild LOOPY, Verified 01/12/21 09:28 Antibiotics) memory Active Medications: Current Medications Aspirin (Aspirin Enteric Coated 81 Mg Tablet.) 81 mg PO DAILY [facility] Atorvastatin Calcium (Atorvastatin Calcium 80 Mg Tablet) 80 mg PO BEDTIME [facility] Dextrose (Dextrose 50 % 25 Gm/50 Ml Vial) 25 gm IVPUSH Q15M PRN; Protocol PRN Reason: per Hypoglycemia Standing Ord. Glucose (Glucose Gel 15 Gm Gel..Gram.) 15 gm PO Q15M PRN; Protocol PRN Reason: per Hypoglycemia Standing Ord. Heparin Sodium (Porcine) (Heparin Sodium,Porcine 5,000 Unit/Ml Vial) 5,400 unit 40 unit/kg (5400 unit) IVPUSH PROTOCOL BOLUS PRN; Protocol PRN Reason: 40 unit/kg - Heparin Protocol Heparin Sodium (Porcine) (Heparin Sodium,Porcine 5,000 Unit/Ml Vial) 10,000 unit IVPUSH PROTOCOL BOLUS PRN; Protocol PRN Reason: 80 unit/kg - Heparin Protocol Heparin Sodium/Sodium Chloride () 25,000 unit in 250 mls @ 0 mls/hr IVCONT .Q0M [facility]; Protocol Last Admin: 01/12/21 13:42 Dose: 7.35 units/kg/hr, 10 mls/hr Documented by: Piperacillin Sod/Tazobactam (Sod 2.25 gm/ Sodium Chloride) 50 mls @ 100 mls/hr IV Q6H [facility] Insulin Human Lispro (Insulin Lispro 100 Unit/Ml 3 Ml Vial) 0 unit SUBCUT QIDACHS [facility]; Protocol Metoprolol Tartrate (Metoprolol Tartrate 50 Mg Tablet) 50 mg PO BID [facility]; Protocol Omeprazole (Omeprazole 20 Mg Capsule.) 20 mg PO DAILY@0630 [facility] Pharmacy Consult (Consult Rx Vancomycin Dosing) 1 each MISCELLANE DAILY PRN PRN Reason: Consult order Sodium Chloride (0.9 % Sodium Chloride Flush 3 Ml Syringe) 3 ml IVFLUSH QSHIFT [facility] Home Medications Medication Instructions Recorded Confirmed Last Taken Type Lasix 40 mg PO DAILY 01/12/21 01/12/21 Unknown History atorvastatin 80 mg tablet 1 tab PO DAILY 01/12/21 01/12/21 Unknown History dulaglutide 0.75 mg/0.5 mL 0.5 ml SUBCUT QWEEK 01/12/21 01/12/21 01/06/21 20:00 History subcutaneous pen injector (Trulicity) insulin lispro 100 unit/mL 50 unit SUBCUT TID 01/12/21 01/12/21 Unknown History subcutaneous pen (Humalog KwikPen (U-100) Insulin) omeprazole 20 mg PO DAILY 01/12/21 01/12/21 Unknown History Physical Exam Vital Signs and Narrative: Vital Signs: Last Vital Signs Temp 98.0 F 01/12/21 13:35 Pulse 89 01/12/21 13:47 Resp 16 01/12/21 13:47 BP 192/70 H 01/12/21 13:47 Pulse Ox 98 01/12/21 13:35 Body Mass Index 48.4 Physical exam: Appearance: not in distress.? Eyes: Pupils equal, round and reactive to light.? Sclera nonicteric.? ENT: Pharynx normal.? Moist mucous membranes. cvs: rrr, [id number]. res: clear to auscultation ,no rhonchii or wheezing abd: no rebound or guarding ,nt, bs present. ext : left foot amputtaion left lower leg and akle -erythema and warm , no discharge or fluctuation. neuro: axo3 , moves all ext , answers slow but able to answer simple questions. Results Labs CBC and Chem 7: 01/12/21 13:27 01/12/21 09:25 Labs: Laboratory Results - last 24 hr 01/12/21 01/12/21 01/12/21 09:25 09:25 09:25 MCV 93.6 MCH 30.1 MCHC 32.2 RDW 13.2 Plt Count 255 MPV 11.5 Immature Gran % (Auto) 0.4 Neut % (Auto) 90.5 H Lymph % (Auto) 4.5 L Grundy % (Auto) 4.4 Eos % (Auto) 0.0 Baso % (Auto) 0.2 Lymph # (Auto) 0.7 L Grundy # (Auto) 0.7 Eos # (Auto) 0.0 Baso # (Auto) 0.0 Abs Immat Gran (auto) 0.07 H Absolute Neuts (auto) 14.6 H Absolute Nucleated RBC 0.000 Nucleated RBC % (auto) 0.0 Smear Tech's Comments VERIFIED PT INR PTT (Heparin Protocol) VBG pH VBG pCO2 VBG pO2 VBG HCO3 VBG O2 Saturation VBG Base Excess Anion Gap 17 Estim Creat Clear Calc 33.0 Estimated GFR 22 POC Glucose Random Glucose 602 H* Lactic Acid 2.1 H* Lactic Acid Fup @ 2Hr Calcium 9.7 Total Bilirubin 1.3 H AST 30 ALT 11 Alkaline Phosphatase 109 Ammonia Total Creatine Kinase 336 H Troponin I High Sens B-Natriuretic Peptide Total Protein 7.8 Albumin 3.6 Lipase 10 Urine Color Urine Appearance Urine pH Ur Specific [place]ols[place] Urine Protein Urine Glucose (UA) Urine Ketones Urine Blood Urine Nitrite Ur Leukocyte Esterase Urine RBC Urine WBC Ur Squamous Epith Cells Urine Bacteria Acetone, Qual Coronavirus (PCR) Influenza Type A (PCR) Influenza Type B (PCR) RSV RNA Qual (PCR) 01/12/21 01/12/21 01/12/21 09:25 09:25 09:25 MCV MCH MCHC RDW Plt Count MPV Immature Gran % (Auto) Neut % (Auto) Lymph % (Auto) Grundy % (Auto) Eos % (Auto) Baso % (Auto) Lymph # (Auto) Grundy # (Auto) Eos # (Auto) Baso # (Auto) Abs Immat Gran (auto) Absolute Neuts (auto) Absolute Nucleated RBC Nucleated RBC % (auto) Smear Tech's Comments PT INR PTT (Heparin Protocol) VBG pH VBG pCO2 VBG pO2 VBG HCO3 VBG O2 Saturation VBG Base Excess Anion Gap Estim Creat Clear Calc Estimated GFR POC Glucose Random Glucose Lactic Acid Lactic Acid Fup @ 2Hr Calcium Total Bilirubin AST ALT Alkaline Phosphatase Ammonia 24 Total Creatine Kinase Troponin I High Sens 2302.6 H* B-Natriuretic Peptide 551 H Total Protein Albumin Lipase Urine Color Urine Appearance Urine pH Ur Specific [place] Urine Protein Urine Glucose (UA) Urine Ketones Urine Blood Urine Nitrite Ur Leukocyte Esterase Urine RBC Urine WBC Ur Squamous Epith Cells Urine Bacteria Acetone, Qual Coronavirus (PCR) NEGATIVE Influenza Type A (PCR) NEGATIVE Influenza Type B (PCR) NEGATIVE RSV RNA Qual (PCR) NEGATIVE 01/12/21 01/12/21 01/12/21 09:25 11:05 11:24 MCV MCH MCHC RDW Plt Count MPV Immature Gran % (Auto) Neut % (Auto) Lymph % (Auto) Grundy % (Auto) Eos % (Auto) Baso % (Auto) Lymph # (Auto) Grundy # (Auto) Eos # (Auto) Baso # (Auto) Abs Immat Gran (auto) Absolute Neuts (auto) Absolute Nucleated RBC Nucleated RBC % (auto) Smear Tech's Comments PT INR PTT (Heparin Protocol) VBG pH VBG pCO2 VBG pO2 VBG HCO3 VBG O2 Saturation VBG Base Excess Anion Gap Estim Creat Clear Calc Estimated GFR POC Glucose Random Glucose Lactic Acid Lactic Acid Fup @ 2Hr Calcium Total Bilirubin AST ALT Alkaline Phosphatase Ammonia Total Creatine Kinase Troponin I High Sens 3431.0 H* B-Natriuretic Peptide Total Protein Albumin Lipase Urine Color STRAW Urine Appearance HAZY Urine pH 6.0 Ur Specific [place] 1.015 Urine Protein 2+ H Urine Glucose (UA) >=1000 H Urine Ketones 15 Urine Blood 2+ H Urine Nitrite NEG Ur Leukocyte Esterase TRACE H Urine RBC 5-9 H Urine WBC 76-150 H Ur Squamous Epith Cells TRACE Urine Bacteria 4+ Acetone, Qual Negative Coronavirus (PCR) Influenza Type A (PCR) Influenza Type B (PCR) RSV RNA Qual (PCR) 01/12/21 01/12/21 01/12/21 11:32 12:10 12:21 MCV MCH MCHC RDW Plt Count MPV Immature Gran % (Auto) Neut % (Auto) Lymph % (Auto) Grundy % (Auto) Eos % (Auto) Baso % (Auto) Lymph # (Auto) Grundy # (Auto) Eos # (Auto) Baso # (Auto) Abs Immat Gran (auto) Absolute Neuts (auto) Absolute Nucleated RBC Nucleated RBC % (auto) Smear Tech's Comments PT 12.9 INR 1.1 PTT (Heparin Protocol) 32.7 L VBG pH VBG pCO2 VBG pO2 VBG HCO3 VBG O2 Saturation VBG Base Excess Anion Gap Estim Creat Clear Calc Estimated GFR POC Glucose 447 H* Random Glucose Lactic Acid Lactic Acid Fup @ 2Hr 2.0 Calcium Total Bilirubin AST ALT Alkaline Phosphatase Ammonia Total Creatine Kinase Troponin I High Sens B-Natriuretic Peptide Total Protein Albumin Lipase Urine Color Urine Appearance Urine pH Ur Specific [place] Urine Protein Urine Glucose (UA) Urine Ketones Urine Blood Urine Nitrite Ur Leukocyte Esterase Urine RBC Urine WBC Ur Squamous Epith Cells Urine Bacteria Acetone, Qual Coronavirus (PCR) Influenza Type A (PCR) Influenza Type B (PCR) RSV RNA Qual (PCR) 01/12/21 01/12/21 01/12/21 13:05 13:27 13:35 MCV 92.3 MCH 30.4 MCHC 32.9 RDW 13.1 Plt Count 224 MPV 11.3 Immature Gran % (Auto) Neut % (Auto) Lymph % (Auto) Grundy % (Auto) Eos % (Auto) Baso % (Auto) Lymph # (Auto) Grundy # (Auto) Eos # (Auto) Baso # (Auto) Abs Immat Gran (auto) Absolute Neuts (auto) Absolute Nucleated RBC 0.000 Nucleated RBC % (auto) 0.0 Smear Tech's Comments PT INR PTT (Heparin Protocol) VBG pH 7.36 VBG pCO2 39 VBG pO2 100 VBG HCO3 22 VBG O2 Saturation 98.0 VBG Base Excess -2.2 Anion Gap Estim Creat Clear Calc Estimated GFR POC Glucose 389 H* Random Glucose Lactic Acid Lactic Acid Fup @ 2Hr Calcium Total Bilirubin AST ALT Alkaline Phosphatase Ammonia Total Creatine Kinase Troponin I High Sens B-Natriuretic Peptide Total Protein Albumin Lipase Urine Color Urine Appearance Urine pH Ur Specific [place] Urine Protein Urine Glucose (UA) Urine Ketones Urine Blood Urine Nitrite Ur Leukocyte Esterase Urine RBC Urine WBC Ur Squamous Epith Cells Urine Bacteria Acetone, Qual Coronavirus (PCR) Influenza Type A (PCR) Influenza Type B (PCR) RSV RNA Qual (PCR) Imaging Radiologist's Impressions: Impressions Head CT 01/12/21 09:00 IMPRESSION: 1. There is no evidence of a recent intracranial hemorrhage. 2. No acute infarct. 3. There is some motion artifact. Tibia/Fibula X-Ray 01/12/21 09:05 IMPRESSION: There are fractures of the distal tibia and fibula that are new compared to 12/20/2015 but do not have an acute appearance. Query if there is any known date of trauma in the last several months. The talus is laterally displaced along with the medial malleolar fragment. Recommend acquiring radiographs focused on the ankle. Mild osteoarthritis of the patellofemoral and lateral tibiofemoral compartment of the right knee. Chest X-Ray 01/12/21 09:06 IMPRESSION: Mild cardiomegaly with. Mild increased pulmonary vascularity question early congestion. Correlate with clinical exam. No acute pneumonic process. Assessment and Plan (1) Sepsis: Qualifiers: Sepsis acute organ dysfunction status: with acute organ dysfunction Sepsis type: sepsis due to unspecified organism Severe sepsis acute organ dysfunction type: encephalopathy Severe sepsis shock status: without septic shock Qualified Code(s): A41.9 - Sepsis, unspecified organism; R65.20 - Severe sepsis without septic shock; G93.40 - Encephalopathy, unspecified Status: Acute (2) Acute hyperglycemia: Status: Acute (3) Acute and subacute ischemic heart disease: Status: Acute (4) CKD (chronic kidney disease): Status: Acute 69-year-old female who came to the hospital because of chest pain, uncontrolled hypertension, uncontrolled diabetes, NSTEMI. 1. Sepsis/cellulitis: Left lower leg Lactic acid normal, blood cultures sent Sepsis exam completed Patient was given Vanco in the ED and Zosyn, will continue broad-spectrum coverage. Id evaluation 2. NSTEMI: Troponins are significantly elevated in 200o-3000 range Has history of CO in the past ED physician discussed the case with cardio and recommended to start on heparin drip. Continue aspirin, statin, beta-loulou and nitro paste. Cardiac echo Cardio consult 3. Uncontrolled hypertension: Given nitro paste and metoprolol IV in the ED, we added p.o. and metoprolol may need to add amlodipine if blood pressure does not respond. 4. Uncontrolled diabetes: Patient was given IV insulin, fingersticks trending down to 380s from 600. Fingersticks with sliding scale coverage, hemoglobin A1c Will add Lantus also. Osmolality is around 300 range, discussed with ICU will continue above management for now.. 5. Right leg x-ray shows fracture of distal tibia and fibula ? ,talus laterally displaced-moves right and left extermity fine , no pain ? nydia shah says has this from 3 years, folowed with ortho outpatient -did not persue further managemnt, moves both lower ext no pain 6. ckd: ? basleine unclear : at least has ckd3 ( from 2013 nephro notes) cr today around 2.2range 2+ protein in urine she follows up with Dr. Bro, will add Nephro evaluation. Assessment and plan was discussed with the patient in detail length including cellulitis/sepsis/use of antibiotics/NSTEMI and heparin use as well as code status-patient understand and in agreement with above plan and seems to be full code time spent 75 minutes. her brother -Mr Rojas no is [phone]( home ), ). Quality Stroke Does the patient have a stroke diagnosis?: No VTE Prior VTE?: No VTE Risk Level:: Medical - moderate - high VTE Device Contraindication: N/A - Device Ordered VTE Drug Contraindication: N/A - Med Ordered
[2021-01-12 14:03] LABS: Estimated Average Glucose 258 mg/dL; Hemoglobin A1c % 10.6 %
[2021-01-12 14:11] LABS: C Reactive Protein 25.59 mg/dL (< or = 0.50)
[2021-01-12 14:38] LABS: Procalcitonin 0.49 ng/mL
[2021-01-12] MEDS: Omeprazole 20 MG CAPSULE.DR PO (14:45)
[2021-01-12] MEDS: Metoprolol Tartrate 50 MG TABLET PO ×2 (14:45→20:18)
[2021-01-12 14:46] LABS: Erythrocyte Sedimentation Rate 51 MM/HR (0-20)
[2021-01-12] MEDS: amLODIPine Besylate 2.5 MG TABLET PO (16:27)
[2021-01-12] MEDS: Insulin Glargine,Hum.rec.anlog 100 UNIT/ML 10 ML VIAL 10 UNIT SUBCUT (16:27)
[2021-01-12 16:32] LABS: Glucose, Whole Blood 350 mg/dL (60-115)
[2021-01-12] MEDS: Insulin Lispro 100 UNIT/ML 3 ML VIAL SUBCUT ×2 (16:34→20:18)
[2021-01-12] MEDS: Piperacillin Sodium/Tazobactam 2.25 GM in 0.9 % Sodium Chloride 50 ML IV ×2 (16:35→23:03)
[2021-01-12] MEDS: 0.9 % Sodium Chloride Flush 3 ML SYRINGE IVFLUSH (16:35)
[2021-01-12 16:51] LABS: Osmolality, Serum 310 mosm/kg (281-305)
[2021-01-12] MEDS: Clopidogrel Bisulfate 300 MG TABLET PO (18:06)
--- NOTE | 2021-01-12 20:03 | PC.NURSE ---
This RN to bedside. Pt resting on stretcher in NAD, breathing with ease on 2L NC, not baseline. Pt aaox4, speaking in complete, clear sentences. VSS. Pt denies CP, SOB/DEO, abd pain, n/v/d. Pt with stuart draining appropriately. This RN obtained and sent PTT HD to lab for processing, will adjust heparin drip accordingly upon results. Pt with critical trop called from lab, Dr Powell made aware. This RN to assess pt's POC glucose and medicate according to sliding scale order. Pt boosted/repositioned in stretcher. Stretcher in low locked position, rails raised, call morelos within reach.
[2021-01-12 20:15] LABS: Glucose, Whole Blood 366 mg/dL (60-115)
[2021-01-12 20:18] LABS: INTERNATIONAL NORM RATIO 1.2 (0.9-1.1); Prothrombin Time 13.6 SEC (9.9-13.0)
--- NOTE | 2021-01-12 20:18 | PC.NURSE ---
Dr Powell made aware of pt's POC glucose 366
[2021-01-12 20:20] LABS: PTT Heparin Drip 44.2 SEC (53-77.9)
[2021-01-12] MEDS: Heparin Sodium,Porcine 5,000 UNIT/ML VIAL 5400 UNIT IVPUSH (20:58)
--- NOTE | 2021-01-12 21:10 | PC.NURSE ---
Pt medicated with heparin bolus as indicated with Latrice MONCADA as witness. Pt heparin drip increased per protocol as indicated with Latrice MONCADA as witness. Pt continues to deny CP, SOB/DEO, dizziness, lightheadedness, abd pain, n/v/d. Pt without any signs of bleeding. Stretcher remains in low locked position, rails raised, call morelos within reach. Per land sales agentUSMAN Feliciano for repeat PTT HD to be at 0200 which is 6h from last draw rather than 6h from dose adjustment.
--- NOTE | 2021-01-12 23:10 | PC.NURSE ---
Pt continues to deny CP, SOB/DEO, abd pain, n/v/d. Pt does report discomfort on stretcher. This RN to get HB to dept to provide pt comfort. Stretcher remains in low locked position, rails raised, call morelos within reach.
--- NOTE | 2021-01-12 23:36 | PC.NURSE ---
Pt transferred to via sheet draw method. Pt reports improvement in comfort level. Pt remains on campus monitor, NSR with stable VS. Bed in low locked position, rails raised, call morelos within reach, bed alarm active and audible.
[2021-01-13] VITALS (12 sets, daily range): BP systolic 135–193; BP diastolic 49–78; PULSE 65–79; RESP 17–20; TEMP 35.9–37.2; O2SAT 90–99; BMI 48.2
[2021-01-13 02:40] LABS: PTT Heparin Drip 129.5 SEC (53-77.9)
--- NOTE | 2021-01-13 02:51 | PC.NURSE ---
Dr Powell made aware that heparin gtt was stopped d/t elevated PTT. Repeat PTT order placed for one hour from stopping gtt, now due at 0345. Pt without signs of bleeding. Pt VS assessed. Pt c/o pain, Dr Powell made aware of pain and BP. Plan for tylenol.
[2021-01-13] MEDS: Acetaminophen 325 MG TABLET 650 MG PO ×2 (03:00→12:20)
[2021-01-13 03:51] LABS: PTT Heparin Drip 77.7 SEC (53-77.9)
--- NOTE | 2021-01-13 03:59 | PC.NURSE ---
This RN notified Dr Powell that pt's repeat PTT is 77.7 after one hour of held heparin gtt. This RN questions Dr Powell regarding the significant drop between the 129.5 while heparin was infusing vs the 77.7 after one hour held. Dr Powell to order repeat PTT HD prior to confirm lab results prior to resuming heparin gtt. This RN notified phlebotomy of need for redraw at this time.
[2021-01-13 04:24] LABS: MANUAL DIFF FLAG NO
[2021-01-13 04:26] LABS: Basophils Percent Auto 0.2 % (0-2); Eosinophils Absolute Auto 0.2 X10*3/uL (0.0-0.4); Eosinophils Percent Auto 1.6 % (0-4); Hematocrit 38.9 % (37-47); Hemoglobin 12.6 g/dl (12.0-16.0); Imm Gran Abs Auto 0.07 X10*3/uL (0.00-0.03); Imm Gran Pct Auto 0.6 % (0.0-0.4); Lymphocytes Absolute Auto 1.2 X10*3/uL (1.2-4.9); Lymphocytes Percent Auto 9.7 % (20-40); Mean Corpuscular HGB Conc 32.4 g/dl (31.0-35.0); Mean Corpuscular Hemoglobin 30.1 pg (27.0-33.0); Mean Corpuscular Volume 92.8 fL (80-98); Monocytes Absolute Auto 0.9 X10*3/uL (0.1-1.2); Monocytes Percent Auto 7.4 % (2-11); Neutrophils Absolute Auto 9.9 X10*3/uL (2.0-8.3); Neutrophils Percent Auto 80.5 % (45-73); Platelet Count 203 X10*3/uL (160-400); Red Blood Count 4.19 X10*6/uL (4.20-5.50); Red Cell Distribution Width 13.3 % (11.0-16.0); White Blood Count 12.2 X10*3/uL (4.8-10.8)
[2021-01-13 04:32] LABS: INTERNATIONAL NORM RATIO 1.1 (0.9-1.1); Prothrombin Time 12.9 SEC (9.9-13.0)
[2021-01-13 04:34] LABS: PTT Heparin Drip 44.3 SEC (53-77.9)
[2021-01-13] MEDS: Heparin Sodium,Porcine 5,000 UNIT/ML VIAL 5400 UNIT IVPUSH (04:48)
[2021-01-13] MEDS: Piperacillin Sodium/Tazobactam 2.25 GM in 0.9 % Sodium Chloride 50 ML IV ×4 (04:52→22:32)
[2021-01-13 04:55] LABS: Anion Gap 15 (12-20); Blood Urea Nitrogen 35 mg/dL (9-16); Calcium 8.2 mg/dL (8.4-10.2); Carbon Dioxide 23 mmol/L (22-29); Chloride 103 mmol/L (96-108); Creatinine Clr Calc Pharmacy 38.9; Estimated Glomerular Filt Rate 26; Glucose Random 323 mg/dL (60-115); Potassium 4.7 mmol/L (3.3-5.1); Sodium 136 mmol/L (135-145)
--- NOTE | 2021-01-13 05:44 | PC.NURSE ---
repeat PTT HD ordered for 1050 per protocol (6 hours after resuming heparin gtt)
[2021-01-13] MEDS: Omeprazole 20 MG CAPSULE.DR PO (05:59)
--- NOTE | 2021-01-13 06:33 | PC.NURSE ---
Report attempted x 1
[2021-01-13 07:37] LABS: Glucose, Whole Blood 290 mg/dL (60-115)
[2021-01-13 07:58] LABS: Alanine Aminotransferase 8 U/L (0-31); Albumin Level 2.8 g/dL (3.5-5.0); Alkaline Phosphatase 82 U/L (39-117); Aspartate Amino Transferase 30 U/L (5-31); Bilirubin Direct 0.3 mg/dL (0.0-0.5); Bilirubin Total 0.8 mg/dL (0.0-1.0); C Reactive Protein 27.97 mg/dL (< or = 0.50); Total Protein 6.1 g/dL (6.5-8.0)
[2021-01-13 08:57] LABS: Glucose, Whole Blood 280 mg/dL (60-115)
[2021-01-13] MEDS: Clopidogrel Bisulfate 75 MG TABLET PO (09:32)
[2021-01-13] MEDS: Metoprolol Tartrate 50 MG TABLET PO ×2 (09:32→20:44)
[2021-01-13] MEDS: Insulin Lispro 100 UNIT/ML 3 ML VIAL SUBCUT ×4 (09:33→20:44)
[2021-01-13] MEDS: Aspirin Enteric Coated 81 MG TABLET.DR PO (09:33)
[2021-01-13] MEDS: Insulin Glargine,Hum.rec.anlog 100 UNIT/ML 10 ML VIAL 20 UNIT SUBCUT (09:33)
[2021-01-13] MEDS: 0.9 % Sodium Chloride Flush 3 ML SYRINGE IVFLUSH ×3 (09:34→20:46)
--- NOTE | 2021-01-13 10:00 | CA_ITS ---
Transthoracic Echocardiogram Patient (Last, First, Middle): Caty Akers M Gender: Female Date of : 1950 Age: 70 Procedure Date: 01/13/2021 Procedure Type: Transthoracic [place] [facility] [place]: 167.64 cm Weight: 136.08 kg BSA: 2.38 m2 Heart Rate: bpm BP: 159 / 52 mmHg Hotel Engineer: Referring MD: Benjamin Cunningham MD Fur Dyer: Eliceo Severino MD Symptoms: nstemi Study Quality: Technically Difficult due to body habitus ECG Rhythm: Sinus Conclusions: - 1. Normal LV systolic function with moderate LVH with impaired relaxation filling pattern with regional wall motion abnormality mid LAD distribution 2. Mildly dilated right ventricle with normal systolic function 3. Normal cardiac valvular Doppler 4. Normal RV systolic pressure 5. No gross pericardial effusion Findings Procedure Information Contrast agent, definity, is being given per protocol without apparent complications. Left Ventricle Normal left ventricular cavity size. There is moderately increased left ventricular wall thickness. The left ventricular systolic function is normal. The visually estimated ejection fraction is between 60-65%. Spectral Doppler is indicative of an impaired relaxation filling pattern. E/E prime ratio is between 8 and 15 consistent with indeterminate filling pressures. There is severe septal asymmetric hypertrophy. Wall Motion Rest Echo Findings The apex, apical inferior, apical septum, and mid anteroseptal segments are hypokinetic. All other scored wall segments showed normal motion. Right Ventricle Mildly increased right ventricular cavity size. There is normal right ventricular systolic function. Atria The left atrium is moderately dilated. Interatrial shunt cannot be excluded. The right atrium was not well visualized. Aortic Valve There is mild calcification of the aortic valve. There is moderate thickening of the aortic valve. There is no aortic valve stenosis. There is no aortic valve regurgitation. Mitral Valve There is mild anterior and moderate posterior mitral leaflet thickening. There is moderate mitral annular calcification. There is trace mitral valve regurgitation. There is no mitral valve stenosis. Pulmonic Valve The pulmonic valve was not well visualized. Tricuspid Valve The tricuspid valve was not well visualized. There is trace tricuspid valve regurgitation. The right ventricular systolic pressure is normal. The right ventricular systolic pressure is 19 mmHg. Normal right atrial pressure. There is no evidence of pulmonary hypertension. Great Vessels The aorta was not well visualized. The pulmonary artery was not well visualized. Venous The inferior vena cava is normal in size and collapses greater than 50% with inspiration. Pericardium/Pleural The pericardium was not well visualized. Prior Study Comparison Changes noted compared to prior study dated: 09/15/2019. Regional wall motion abnormality in LAD territory noted Measurements 2D Linear Measurements IVSd: 1.82 0.6-0.9/0.6-1.0 cm LVIDd: 2.68 3.9-5.3/4.2-5.9 cm LVIDd Index: 1.13 2.4-3.2/2.2-3.1 cm/m2 LVIDs: 1.86 2.0-3.6 cm LVPWd: 1.51 0.7-1.1 cm Ao Root: 3.00 2.1-3.5 cm LA Diam: 3.60 2.7-3.8/3.0-4.0 cm LAIDs Index: 1.51 1.5-2.3 cm/m2 LV Mass: 205.75 67-162/88-224 g LV Mass Index: 86.45 43-95/49-115 g/m2 LVOT Diam: 2.00 3.0+(-)1.3 cm 2D Systolic Function EF 4C: 62.70 >55% EF 2C: 61.70 >55% EF BiP: 61.30 >55% Mitral Valve MV VTI: 0.33 MV Pk Cale: 1.38 MV Mn Cale: 0.79 MV Pk Grad: 8.00 MV Mn Grad: 3.00 MV Pk E: 1.00 MV PK A: 1.24 MV Decel Time: 194.00 E/A: 0.80 E'Lateral: 9.14 E'Medial: 55.10 E/E' Med: 1.80 E/E' Lat: 10.90 PHT: 57.00 MVA PHT: 3.86 MVA Continuity: 2.71 Decel Preston: 5.16 Aortic Valve AoV Pk Cale: 1.57 AoV Mn Cale: 1.03 AoV VTI: 0.37 AoV Pk Grad: 10.00 Aov Mn Grad: 5.00 OCHOA Cont.VTI: 2.39 LVOT LVOT Pk Cale: 0.97 LVOT Mn Cale: 0.67 LVOT VTI: 0.28 LVOT Pk Grad: 4.00 LVOT Mn Grad: 2.00 LVOT Diam: 2.00 LVOT Area: 3.14 Diastolic Function MV Pk E: 1.00 MV Pk A: 1.24 E/A: 0.80 E'Medial: 55.10 E/E' Med: 1.80 E' Laterial: 9.14 E/E' Lat: 10.90 Tricuspid Valve TR Pk Cale: 2.02 TR Pk Grad: 16.00 RA Press: 3.00 RVSP: 19.00 Great Vessels Aorta Ao Root-2D: 3.00 2.0-3.7 cm Ao Asc: 3.50 2.1-3.4 cm Pulmonary Valve PV Pk Cale: 1.00 Peak PV Grad: 4.00 Updated in Other Vendor System with Status of Final Eliceo Severino MD electronically signed on 01/13/2021 11:36:22 AM with status of Final
--- NOTE | 2021-01-13 11:18 | P.CONCA_ITS ---
History of Present Illness History of Present Illness Date of Service: 01/13/21 Requesting physician: Benjamin Cunningham Chief complaint: NSTEMI Narrative: I was requested to see Caty for NSTEMI. History was obtained from the patient. Patient with prior history of coronary artery disease status post drug-eluting stent to proximal D2 as well as drug-eluting stent to mid RCA, July of 2012 for unstable angina and NSTEMI. Also mention chronic total occlusion of the LAD in the last note, with chronic intermittent left arm discomfort in this patient which was suspected to be anginal, treated with sublingual nitroglycerin. She has last seen Dr. Harris by telephone visit in September of 2019. Came to the hospital with progressive weakness over the last 4 days and falling down. She did not clearly have any lightheadedness but says that she is dizzy. For a days she was having left arm discomfort which was on and off. Some of this discomfort resolve with sublingual nitroglycerin. However she is not sure if this is related to her heart. She has prior fracture of her left arm as per her. This symptoms also symptoms resolve with Tylenol as per her. She is minimally active and is mostly wheelchair-bound at home and only walks to the bathroom for few steps with help of a walker. She is trying to do that and fell down and came to the hospital. She was noted to have sepsis and urinary tract infection. She was also noted to have elevated troponins consistent with NSTEMI. Her troponin up to 9000. She says since she has been here her left arm discomfort has resolved. EKG did not show any significant acute changes, nonspecific ST changes. Cardiology consult was sought for further management plan. She is currently on IV heparin and was also started on Plavix therapy. She is minimally function because of amputation and ankle fracture Review of Systems Constitutional: Constitutional: Denies body ache(s), Denies chills, Denies fever(s) and Reports weakness Cardiovascular: Cardiovascular: Denies chest pain, Denies rapid heart rate, Denies Loss of Consciousness, Denies palpitations, Denies dyspnea and Reports other (Left arm pain which may be her anginal symptoms) Respiratory: Respiratory: Reports no additional respiratory complaints and Denies dyspnea Gastrointestinal: Gastrointestinal: Reports no additional gastrointestinal complaints Musculoskeletal: Musculoskeletal: Reports no additional musculoskeletal co mplaints Neurologic: Reports system reviewed and no additional complaints, except as documented and Reports weakness Psychiatric: Psychiatric: Reports no additional psychiatric complaints Endocrine: Endocrine: Denies palpitations Hematologic/Lymphatic: Hematologic/Lymphatic: Reports no additional hematologi c/lymphatic complaints Allergic/Immunologic: Allergic/Immunologic: Reports no additional allergic/immunologic complaints [facility] Past Medical History Medical History Amputation of left foot CAD (coronary artery disease) Diabetes High cholesterol HTN (hypertension) Kidney disease Social History Social History Household Members: None Housing: Apartment Do you presently have visiting nurse or other home services: Yes (Visiting nurse) Patient Tobacco Use Status: Never used Tobacco Meds Allergies Allergy/AdvReac Type Severity Reaction Status Date / Time Sulfa (Sulfonamide Allergy Mild LOOPY, Verified 01/12/21 09:28 Antibiotics) memory Active Medications: Current Medications Aspirin (Aspirin Enteric Coated 81 Mg Tablet.) 81 mg PO DAILY [facility] Last Admin: 01/13/21 09:33 Dose: 81 mg Documented by: Atorvastatin Calcium (Atorvastatin Calcium 80 Mg Tablet) 80 mg PO BEDTIME JILLIAN Clopidogrel Bisulfate (Clopidogrel Bisulfate 75 Mg Tablet) 75 mg PO DAILY [facility] Last Admin: 01/13/21 09:32 Dose: 75 mg Documented by: Dextrose (Dextrose 50 % 25 Gm/50 Ml Vial) 25 gm IVPUSH Q15M PRN; Protocol PRN Reason: per Hypoglycemia Standing Ord. Glucose (Glucose Gel 15 Gm Gel..Gram.) 15 gm PO Q15M PRN; Protocol PRN Reason: per Hypoglycemia Standing Ord. Heparin Sodium (Porcine) (Heparin Sodium,Porcine 5,000 Unit/Ml Vial) 5,400 unit 40 unit/kg (5400 unit) IVPUSH PROTOCOL BOLUS PRN; Protocol PRN Reason: 40 unit/kg - Heparin Protocol Last Admin: 01/13/21 04:48 Dose: 5,400 unit Documented by: Heparin Sodium (Porcine) (Heparin Sodium,Porcine 5,000 Unit/Ml Vial) 10,000 unit IVPUSH PROTOCOL BOLUS PRN; Protocol PRN Reason: 80 unit/kg - Heparin Protocol Heparin Sodium/Sodium Chloride () 25,000 unit in 250 mls @ 0 mls/hr IVCONT .Q0M JILLIAN; Protocol Last Titration: 01/13/21 04:49 Dose: 11.35 units/kg/hr, 15.45 mls/hr Documented by: Piperacillin Sod/Tazobactam (Sod 2.25 gm/ Sodium Chloride) 50 mls @ 100 mls/hr IV Q6H [facility] Last Infusion: 01/13/21 05:32 Dose: Infused Documented by: Vancomycin HCl 750 mg/ Sodium (Chloride) 265 mls @ 265 mls/hr IV Q24H [facility] Insulin Glargine (Insulin Glargine,Hum.Rec.Anlog 100 Unit/Ml 10 Ml Vial) 20 unit SUBCUT DAILY [facility] Last Admin: 01/13/21 09:33 Dose: 20 unit Documented by: Insulin Human Lispro (Insulin Lispro 100 Unit/Ml 3 Ml Vial) 0 unit SUBCUT QIDACHS [facility]; Protocol Last Admin: 01/13/21 09:33 Dose: 6 unit Documented by: Metoprolol Tartrate (Metoprolol Tartrate 50 Mg Tablet) 50 mg PO BID [facility]; Protocol Last Admin: 01/13/21 09:32 Dose: 50 mg Documented by: Omeprazole (Omeprazole 20 Mg Capsule.) 20 mg PO DAILY@0630 [facility] Last Admin: 01/13/21 05:59 Dose: 20 mg Documented by: Pharmacy Consult (Consult Rx Vancomycin Dosing) 1 each MISCELLANE DAILY PRN PRN Reason: Consult order Sodium Chloride (0.9 % Sodium Chloride Flush 3 Ml Syringe) 3 ml IVFLUSH QSHIFT [facility] Last Admin: 01/13/21 09:34 Dose: 3 ml Documented by: Home Medications Medication Instructions Recorded Confirmed Last Taken Type Lasix 40 mg PO DAILY 01/12/21 01/12/21 Unknown History atorvastatin 80 mg tablet 1 tab PO DAILY 01/12/21 01/12/21 Unknown History dulaglutide 0.75 mg/0.5 mL 0.5 ml SUBCUT QWEEK 01/12/21 01/12/21 01/06/21 20:00 History subcutaneous pen injector (Trulicity) insulin lispro 100 unit/mL 50 unit SUBCUT TID 01/12/21 01/12/21 Unknown History subcutaneous pen (Humalog KwikPen (U-100) Insulin) omeprazole 20 mg PO DAILY 01/12/21 01/12/21 Unknown History gabapentin 600 mg tablet 1 tab PO TID 01/13/21 01/13/21 Unknown History metoprolol tartrate 50 mg PO BID 01/13/21 01/13/21 Unknown History Physical Exam Vital Signs: Vital Signs: Last Vital Signs Temp 98.5 F 01/13/21 08:00 Pulse 79 01/13/21 09:32 Resp 18 01/13/21 08:00 BP 193/78 H 01/13/21 09:32 Pulse Ox 97 01/13/21 08:00 Body Mass Index 48.2 Const: General: cooperative, comfortable, alert and awake Nutritional Appearance: obese Orientation/consciousness: patient oriented x3 HENMT: Head: Yes normocephalic and Yes atraumatic Chest: Chest palpation & inspection: normal inspection of the chest Resp: Effort & Inspection: decreased respiratory effort Auscultation: clear to auscultation bilaterally and diminished lung sounds Cardio: Jugular venous distension: no JVD Rate: regular rate Rhythm: regular rhythm Heart sounds: S1 normal heart sound present, S2 normal heart sound present, no click, no gallops and Murmur heart sound present systolic early GI: Auscultation: normal bowel sounds Skin: General skin exam: no rashes or lesions noted Neuro: General: patient oriented x3 and no focal motor deficits Extrem: General: Yes no clubbing, cyanosis or edema Results Labs and Meds Result diagrams: 01/13/21 04:19 01/13/21 04:19 Lab results: Laboratory Results - last 24 hr 01/12/21 01/12/21 01/12/21 09:25 09:25 11:05 WBC RBC Hgb Hct MCV MCH MCHC RDW Plt Count MPV Immature Gran % (Auto) Neut % (Auto) Lymph % (Auto) [place] % (Auto) Eos % (Auto) Baso % (Auto) Lymph # (Auto) [place] # (Auto) Eos # (Auto) Baso # (Auto) Abs Immat Gran (auto) Absolute Neuts (auto) Absolute Nucleated RBC Nucleated RBC % (auto) ESR PT INR PTT (Heparin Protocol) VBG pH VBG pCO2 VBG pO2 VBG HCO3 VBG O2 Saturation VBG Base Excess Sodium Potassium Chloride Carbon Dioxide Anion Gap BUN Creatinine Estim Creat Clear Calc Estimated GFR POC Glucose Random Glucose Estimat Average Glucose Hemoglobin A1c % Osmolality Lactic Acid Fup @ 2Hr Calcium Total Bilirubin Direct Bilirubin AST ALT Alkaline Phosphatase Troponin I High Sens 3431.0 H* C-Reactive Protein 25.59 H Total Protein Albumin Procalcitonin 0.49 Urine Color Urine Appearance Urine pH Ur Specific [place] Urine Protein Urine Glucose (UA) Urine Ketones Urine Blood Urine Nitrite Ur Leukocyte Esterase Urine RBC Urine WBC Ur Squamous Epith Cells Urine Bacteria 01/12/21 01/12/21 01/12/21 11:24 11:32 12:10 WBC RBC Hgb Hct MCV MCH MCHC RDW Plt Count MPV Immature Gran % (Auto) Neut % (Auto) Lymph % (Auto) [place] % (Auto) Eos % (Auto) Baso % (Auto) Lymph # (Auto) [place] # (Auto) Eos # (Auto) Baso # (Auto) Abs Immat Gran (auto) Absolute Neuts (auto) Absolute Nucleated RBC Nucleated RBC % (auto) ESR PT INR PTT (Heparin Protocol) VBG pH VBG pCO2 VBG pO2 VBG HCO3 VBG O2 Saturation VBG Base Excess Sodium Potassium Chloride Carbon Dioxide Anion Gap BUN Creatinine Estim Creat Clear Calc Estimated GFR POC Glucose 447 H* Random Glucose Estimat Average Glucose Hemoglobin A1c % Osmolality Lactic Acid Fup @ 2Hr 2.0 Calcium Total Bilirubin Direct Bilirubin AST ALT Alkaline Phosphatase Troponin I High Sens C-Reactive Protein Total Protein Albumin Procalcitonin Urine Color STRAW Urine Appearance HAZY Urine pH 6.0 Ur Specific [place] 1.015 Urine Protein 2+ H Urine Glucose (UA) >=1000 H Urine Ketones 15 Urine Blood 2+ H Urine Nitrite NEG Ur Leukocyte Esterase TRACE H Urine RBC 5-9 H Urine WBC 76-150 H Ur Squamous Epith Cells TRACE Urine Bacteria 4+ 01/12/21 01/12/21 01/12/21 12:21 13:05 13:27 WBC 15.1 H RBC 4.31 Hgb 13.1 Hct 39.8 MCV 92.3 MCH 30.4 MCHC 32.9 RDW 13.1 Plt Count 224 MPV 11.3 Immature Gran % (Auto) Neut % (Auto) Lymph % (Auto) [place] % (Auto) Eos % (Auto) Baso % (Auto) Lymph # (Auto) [place] # (Auto) Eos # (Auto) Baso # (Auto) Abs Immat Gran (auto) Absolute Neuts (auto) Absolute Nucleated RBC 0.000 Nucleated RBC % (auto) 0.0 ESR PT 12.9 INR 1.1 PTT (Heparin Protocol) 32.7 L VBG pH VBG pCO2 VBG pO2 VBG HCO3 VBG O2 Saturation VBG Base Excess Sodium Potassium Chloride Carbon Dioxide Anion Gap BUN Creatinine Estim Creat Clear Calc Estimated GFR POC Glucose 389 H* Random Glucose Estimat Average Glucose Hemoglobin A1c % Osmolality Lactic Acid Fup @ 2Hr Calcium Total Bilirubin Direct Bilirubin AST ALT Alkaline Phosphatase Troponin I High Sens C-Reactive Protein Total Protein Albumin Procalcitonin Urine Color Urine Appearance Urine pH Ur Specific [place] Urine Protein Urine Glucose (UA) Urine Ketones Urine Blood Urine Nitrite Ur Leukocyte Esterase Urine RBC Urine WBC Ur Squamous Epith Cells Urine Bacteria 01/12/21 01/12/21 01/12/21 13:27 13:31 13:35 WBC RBC Hgb Hct MCV MCH MCHC RDW Plt Count MPV Immature Gran % (Auto) Neut % (Auto) Lymph % (Auto) [place] % (Auto) Eos % (Auto) Baso % (Auto) Lymph # (Auto) [place] # (Auto) Eos # (Auto) Baso # (Auto) Abs Immat Gran (auto) Absolute Neuts (auto) Absolute Nucleated RBC Nucleated RBC % (auto) ESR 51 H PT INR PTT (Heparin Protocol) VBG pH 7.36 VBG pCO2 39 VBG pO2 100 VBG HCO3 22 VBG O2 Saturation 98.0 VBG Base Excess -2.2 Sodium Potassium Chloride Carbon Dioxide Anion Gap BUN Creatinine Estim Creat Clear Calc Estimated GFR POC Glucose Random Glucose Estimat Average Glucose 258 Hemoglobin A1c % 10.6 Osmolality Lactic Acid Fup @ 2Hr Calcium Total Bilirubin Direct Bilirubin AST ALT Alkaline Phosphatase Troponin I High Sens C-Reactive Protein Total Protein Albumin Procalcitonin Urine Color Urine Appearance Urine pH Ur Specific [place] Urine Protein Urine Glucose (UA) Urine Ketones Urine Blood Urine Nitrite Ur Leukocyte Esterase Urine RBC Urine WBC Ur Squamous Epith Cells Urine Bacteria 01/12/21 01/12/21 01/12/21 14:58 15:16 16:27 WBC RBC Hgb Hct MCV MCH MCHC RDW Plt Count MPV Immature Gran % (Auto) Neut % (Auto) Lymph % (Auto) [place] % (Auto) Eos % (Auto) Baso % (Auto) Lymph # (Auto) [place] # (Auto) Eos # (Auto) Baso # (Auto) Abs Immat Gran (auto) Absolute Neuts (auto) Absolute Nucleated RBC Nucleated RBC % (auto) ESR PT INR PTT (Heparin Protocol) VBG pH VBG pCO2 VBG pO2 VBG HCO3 VBG O2 Saturation VBG Base Excess Sodium Potassium Chloride Carbon Dioxide Anion Gap BUN Creatinine Estim Creat Clear Calc Estimated GFR POC Glucose 350 H* Random Glucose Estimat Average Glucose Hemoglobin A1c % Osmolality 310 H Lactic Acid Fup @ 2Hr Calcium Total Bilirubin Direct Bilirubin AST ALT Alkaline Phosphatase Troponin I High Sens 6853.4 H* D C-Reactive Protein Total Protein Albumin Procalcitonin Urine Color Urine Appearance Urine pH Ur Specific [place] Urine Protein Urine Glucose (UA) Urine Ketones Urine Blood Urine Nitrite Ur Leukocyte Esterase Urine RBC Urine WBC Ur Squamous Epith Cells Urine Bacteria 01/12/21 01/12/21 01/12/21 18:37 19:58 20:10 WBC RBC Hgb Hct MCV MCH MCHC RDW Plt Count MPV Immature Gran % (Auto) Neut % (Auto) Lymph % (Auto) [place] % (Auto) Eos % (Auto) Baso % (Auto) Lymph # (Auto) [place] # (Auto) Eos # (Auto) Baso # (Auto) Abs Immat Gran (auto) Absolute Neuts (auto) Absolute Nucleated RBC Nucleated RBC % (auto) ESR PT 13.6 H INR 1.2 H PTT (Heparin Protocol) 44.2 L D VBG pH VBG pCO2 VBG pO2 VBG HCO3 VBG O2 Saturation VBG Base Excess Sodium Potassium Chloride Carbon Dioxide Anion Gap BUN Creatinine Estim Creat Clear Calc Estimated GFR POC Glucose 366 H* Random Glucose Estimat Average Glucose Hemoglobin A1c % Osmolality Lactic Acid Fup @ 2Hr Calcium Total Bilirubin Direct Bilirubin AST ALT Alkaline Phosphatase Troponin I High Sens 9084.1 H* C-Reactive Protein Total Protein Albumin Procalcitonin Urine Color Urine Appearance Urine pH Ur Specific [place] Urine Protein Urine Glucose (UA) Urine Ketones Urine Blood Urine Nitrite Ur Leukocyte Esterase Urine RBC Urine WBC Ur Squamous Epith Cells Urine Bacteria 01/13/21 01/13/21 01/13/21 02:12 03:36 04:19 WBC Cancelled RBC Cancelled Hgb Cancelled Hct Cancelled MCV Cancelled MCH Cancelled MCHC Cancelled RDW Cancelled Plt Count Cancelled MPV Cancelled Immature Gran % (Auto) Neut % (Auto) Lymph % (Auto) [place] % (Auto) Eos % (Auto) Baso % (Auto) Lymph # (Auto) [place] # (Auto) Eos # (Auto) Baso # (Auto) Abs Immat Gran (auto) Absolute Neuts (auto) Absolute Nucleated RBC Cancelled Nucleated RBC % (auto) Cancelled ESR PT INR PTT (Heparin Protocol) 129.5 H* D 77.7 D VBG pH VBG pCO2 VBG pO2 VBG HCO3 VBG O2 Saturation VBG Base Excess Sodium Potassium Chloride Carbon Dioxide Anion Gap BUN Creatinine Estim Creat Clear Calc Estimated GFR POC Glucose Random Glucose Estimat Average Glucose Hemoglobin A1c % Osmolality Lactic Acid Fup @ 2Hr Calcium Total Bilirubin Direct Bilirubin AST ALT Alkaline Phosphatase Troponin I High Sens C-Reactive Protein Total Protein Albumin Procalcitonin Urine Color Urine Appearance Urine pH Ur Specific [place] Urine Protein Urine Glucose (UA) Urine Ketones Urine Blood Urine Nitrite Ur Leukocyte Esterase Urine RBC Urine WBC Ur Squamous Epith Cells Urine Bacteria 01/13/21 01/13/21 01/13/21 04:19 04:19 04:19 WBC 12.2 H RBC 4.19 L Hgb 12.6 Hct 38.9 MCV 92.8 MCH 30.1 MCHC 32.4 RDW 13.3 Plt Count 203 MPV 11.0 Immature Gran % (Auto) 0.6 H Neut % (Auto) 80.5 H Lymph % (Auto) 9.7 L [place] % (Auto) 7.4 Eos % (Auto) 1.6 Baso % (Auto) 0.2 Lymph # (Auto) 1.2 [place] # (Auto) 0.9 Eos # (Auto) 0.2 Baso # (Auto) 0.0 Abs Immat Gran (auto) 0.07 H Absolute Neuts (auto) 9.9 H Absolute Nucleated RBC 0.000 Nucleated RBC % (auto) 0.0 ESR PT Cancelled INR Cancelled PTT (Heparin Protocol) VBG pH VBG pCO2 VBG pO2 VBG HCO3 VBG O2 Saturation VBG Base Excess Sodium 136 Potassium 4.7 Chloride 103 Carbon Dioxide 23 Anion Gap 15 BUN 35 H Creatinine 1.88 H Estim Creat Clear Calc 38.9 Estimated GFR 26 POC Glucose Random Glucose 323 H Estimat Average Glucose Hemoglobin A1c % Osmolality Lactic Acid Fup @ 2Hr Calcium 8.2 L D Total Bilirubin 0.8 Direct Bilirubin 0.3 AST 30 ALT 8 Alkaline Phosphatase 82 D Troponin I High Sens C-Reactive Protein 27.97 H Total Protein 6.1 L D Albumin 2.8 L D Procalcitonin Urine Color Urine Appearance Urine pH Ur Specific [place] Urine Protein Urine Glucose (UA) Urine Ketones Urine Blood Urine Nitrite Ur Leukocyte Esterase Urine RBC Urine WBC Ur Squamous Epith Cells Urine Bacteria 01/13/21 01/13/21 01/13/21 04:19 07:33 08:48 WBC RBC Hgb Hct MCV MCH MCHC RDW Plt Count MPV Immature Gran % (Auto) Neut % (Auto) Lymph % (Auto) [place] % (Auto) Eos % (Auto) Baso % (Auto) Lymph # (Auto) [place] # (Auto) Eos # (Auto) Baso # (Auto) Abs Immat Gran (auto) Absolute Neuts (auto) Absolute Nucleated RBC Nucleated RBC % (auto) ESR PT 12.9 INR 1.1 PTT (Heparin Protocol) 44.3 L D VBG pH VBG pCO2 VBG pO2 VBG HCO3 VBG O2 Saturation VBG Base Excess Sodium Potassium Chloride Carbon Dioxide Anion Gap BUN Creatinine Estim Creat Clear Calc Estimated GFR POC Glucose 290 H 280 H Random Glucose Estimat Average Glucose Hemoglobin A1c % Osmolality Lactic Acid Fup @ 2Hr Calcium Total Bilirubin Direct Bilirubin AST ALT Alkaline Phosphatase Troponin I High Sens C-Reactive Protein Total Protein Albumin Procalcitonin Urine Color Urine Appearance Urine pH Ur Specific [place] Urine Protein Urine Glucose (UA) Urine Ketones Urine Blood Urine Nitrite Ur Leukocyte Esterase Urine RBC Urine WBC Ur Squamous Epith Cells Urine Bacteria Assessment and Plan (1) NSTEMI (non-ST elevated myocardial infarction): Status: Acute Patient presents with acute NSTEMI with symptoms of left arm discomfort which may be her original anginal equivalent. However this is unclear completely. However she continues to have rising troponins which are significant. Will review the echocardiogram. Continue IV heparin for at least 48 hours. Continue aspirin and load with Plavix 300 mg. High-intensity statin therapy with Lipitor 80 mg daily. Continue metoprolol therapy. Her blood pressure is significantly elevated will consider adding Norvasc 5 mg as well as nitropaste 1 in q.6 hours for better control of blood pressure. She has multiple comorbidities including poor functional status, currently having treatment for sepsis for a urinary tract infection as well as acute kidney injury. Will manage her conservatively and pursue ischemic workup with myocardial perfusion imaging with vaso dilator were stress test in 2 days. Further treatment based on the findings of stress testing. If she has significant ischemia may need to pursue further invasive approach. She is agreeable to this management plan. Will continue to follow with you. Continue to manage her sepsis as per hospitalist team. Procedures Date of Service Date of Service: 01/13/21
[2021-01-13 11:40] LABS: Glucose, Whole Blood 302 mg/dL (60-115)
--- NOTE | 2021-01-13 11:59 | P.PNIM_ITS ---
Subjective Subjective Date of Service: 01/13/21 Interval History: nsetmi , sepsis /cellulitis,ckd Review of Systems Leg cellulitis area seems improving Denies any chest pain or shortness of breath or abdominal pain or fever chills. Moving all extremities no weakness or numbness. Physical Exam Vital Signs: Vital Signs: Last Vital Signs Temp 98.5 F 01/13/21 08:00 Pulse 79 01/13/21 09:32 Resp 18 01/13/21 08:00 BP 193/78 H 01/13/21 09:32 Pulse Ox 97 01/13/21 08:00 Body Mass Index 48.2 Appearance: not in distress.? Eyes: Pupils equal, round and reactive to light.? Sclera nonicteric.? ENT: Pharynx normal.? Moist mucous membranes. cvs: rrr, [id number]. res: clear to auscultation ,no rhonchii or wheezing abd: no rebound or guarding ,nt, bs present. ext : left foot amputtaion left lower leg and akle -erythema -seems improving , no discharge or fluctuation. neuro: axo3 , moves all ext , answers slow but able to answer simple questions. Objective Data Active Medications Amlodipine Besylate (Amlodipine Besylate 5 Mg Tablet) 5 mg PO DAILY [facility]; Protocol Aspirin (Aspirin Enteric Coated 81 Mg Tablet.) 81 mg PO DAILY [facility] Last Admin: 01/13/21 09:33 Dose: 81 mg Documented by: ELIUD Atorvastatin Calcium (Atorvastatin Calcium 80 Mg Tablet) 80 mg PO BEDTIME [facility] Clopidogrel Bisulfate (Clopidogrel Bisulfate 75 Mg Tablet) 75 mg PO DAILY [facility] Last Admin: 01/13/21 09:32 Dose: 75 mg Documented by: LEIUD Dextrose (Dextrose 50 % 25 Gm/50 Ml Vial) 25 gm IVPUSH Q15M PRN; Protocol PRN Reason: per Hypoglycemia Standing Ord. Glucose (Glucose Gel 15 Gm Gel..Gram.) 15 gm PO Q15M PRN; Protocol PRN Reason: per Hypoglycemia Standing Ord. Heparin Sodium (Porcine) (Heparin Sodium,Porcine 5,000 Unit/Ml Vial) 5,400 unit 40 unit/kg (5400 unit) IVPUSH PROTOCOL BOLUS PRN; Protocol PRN Reason: 40 unit/kg - Heparin Protocol Last Admin: 01/13/21 04:48 Dose: 5,400 unit Documented by: JHONATAN Heparin Sodium (Porcine) (Heparin Sodium,Porcine 5,000 Unit/Ml Vial) 10,000 unit IVPUSH PROTOCOL BOLUS PRN; Protocol PRN Reason: 80 unit/kg - Heparin Protocol Heparin Sodium/Sodium Chloride () 25,000 unit in 250 mls @ 0 mls/hr IVCONT .Q0M [facility]; Protocol Last Titration: 01/13/21 04:49 Dose: 11.35 units/kg/hr, 15.45 mls/hr Documented by: JHONATAN Cosigned by: MILES Piperacillin Sod/Tazobactam (Sod 2.25 gm/ Sodium Chloride) 50 mls @ 100 mls/hr IV Q6H [facility] Last Infusion: 01/13/21 05:32 Dose: 0 mls/hr Documented by: JHONATAN Vancomycin HCl 750 mg/ Sodium (Chloride) 265 mls @ 265 mls/hr IV Q24H [facility] Insulin Glargine (Insulin Glargine,Hum.Rec.Anlog 100 Unit/Ml 10 Ml Vial) 20 unit SUBCUT DAILY [facility] Last Admin: 01/13/21 09:33 Dose: 20 unit Documented by: ELIUD Insulin Human Lispro (Insulin Lispro 100 Unit/Ml 3 Ml Vial) 0 unit SUBCUT QIDACHS [facility]; Protocol Last Admin: 01/13/21 09:33 Dose: 6 unit Documented by: ELIUD Metoprolol Tartrate (Metoprolol Tartrate 50 Mg Tablet) 50 mg PO BID [facility]; Protocol Last Admin: 01/13/21 09:32 Dose: 50 mg Documented by: ELIUD Nitroglycerin (Nitroglycerin 2 % Oint 1 Gm Packet) 1 inch TRANSDERMA RQ6H WHILE AWAKE [facility] Omeprazole (Omeprazole 20 Mg Capsule.Dr) 20 mg PO DAILY@0630 [facility] Last Admin: 01/13/21 05:59 Dose: 20 mg Documented by: JHONATAN Pharmacy Consult (Consult Rx Vancomycin Dosing) 1 each MISCELLANE DAILY PRN PRN Reason: Consult order Sodium Chloride (0.9 % Sodium Chloride Flush 3 Ml Syringe) 3 ml IVFLUSH QSHIFT [facility] Last Admin: 01/13/21 09:34 Dose: 3 ml Documented by: ELIUD Labs CBC & Chem 7: 01/13/21 04:19 01/13/21 04:19 Labs: Laboratory Results - last 24 hr 01/12/21 01/12/21 01/12/21 09:25 09:25 12:10 MCV MCH MCHC RDW Plt Count MPV Immature Gran % (Auto) Neut % (Auto) Lymph % (Auto) [place] % (Auto) Eos % (Auto) Baso % (Auto) Lymph # (Auto) [place] # (Auto) Eos # (Auto) Baso # (Auto) Abs Immat Gran (auto) Absolute Neuts (auto) Absolute Nucleated RBC Nucleated RBC % (auto) ESR PT INR PTT (Heparin Protocol) VBG pH VBG pCO2 VBG pO2 VBG HCO3 VBG O2 Saturation VBG Base Excess Anion Gap Estim Creat Clear Calc Estimated GFR POC Glucose Random Glucose Estimat Average Glucose Hemoglobin A1c % Osmolality Lactic Acid Fup @ 2Hr 2.0 Calcium Total Bilirubin Direct Bilirubin AST ALT Alkaline Phosphatase Troponin I High Sens C-Reactive Protein 25.59 H Total Protein Albumin Procalcitonin 0.49 01/12/21 01/12/21 01/12/21 12:21 13:05 13:27 MCV 92.3 MCH 30.4 MCHC 32.9 RDW 13.1 Plt Count 224 MPV 11.3 Immature Gran % (Auto) Neut % (Auto) Lymph % (Auto) [place] % (Auto) Eos % (Auto) Baso % (Auto) Lymph # (Auto) [place] # (Auto) Eos # (Auto) Baso # (Auto) Abs Immat Gran (auto) Absolute Neuts (auto) Absolute Nucleated RBC 0.000 Nucleated RBC % (auto) 0.0 ESR PT 12.9 INR 1.1 PTT (Heparin Protocol) 32.7 L VBG pH VBG pCO2 VBG pO2 VBG HCO3 VBG O2 Saturation VBG Base Excess Anion Gap Estim Creat Clear Calc Estimated GFR POC Glucose 389 H* Random Glucose Estimat Average Glucose Hemoglobin A1c % Osmolality Lactic Acid Fup @ 2Hr Calcium Total Bilirubin Direct Bilirubin AST ALT Alkaline Phosphatase Troponin I High Sens C-Reactive Protein Total Protein Albumin Procalcitonin 01/12/21 01/12/21 01/12/21 13:27 13:31 13:35 MCV MCH MCHC RDW Plt Count MPV Immature Gran % (Auto) Neut % (Auto) Lymph % (Auto) [place] % (Auto) Eos % (Auto) Baso % (Auto) Lymph # (Auto) [place] # (Auto) Eos # (Auto) Baso # (Auto) Abs Immat Gran (auto) Absolute Neuts (auto) Absolute Nucleated RBC Nucleated RBC % (auto) ESR 51 H PT INR PTT (Heparin Protocol) VBG pH 7.36 VBG pCO2 39 VBG pO2 100 VBG HCO3 22 VBG O2 Saturation 98.0 VBG Base Excess -2.2 Anion Gap Estim Creat Clear Calc Estimated GFR POC Glucose Random Glucose Estimat Average Glucose 258 Hemoglobin A1c % 10.6 Osmolality Lactic Acid Fup @ 2Hr Calcium Total Bilirubin Direct Bilirubin AST ALT Alkaline Phosphatase Troponin I High Sens C-Reactive Protein Total Protein Albumin Procalcitonin 01/12/21 01/12/21 01/12/21 14:58 15:16 16:27 MCV MCH MCHC RDW Plt Count MPV Immature Gran % (Auto) Neut % (Auto) Lymph % (Auto) [place] % (Auto) Eos % (Auto) Baso % (Auto) Lymph # (Auto) [place] # (Auto) Eos # (Auto) Baso # (Auto) Abs Immat Gran (auto) Absolute Neuts (auto) Absolute Nucleated RBC Nucleated RBC % (auto) ESR PT INR PTT (Heparin Protocol) VBG pH VBG pCO2 VBG pO2 VBG HCO3 VBG O2 Saturation VBG Base Excess Anion Gap Estim Creat Clear Calc Estimated GFR POC Glucose 350 H* Random Glucose Estimat Average Glucose Hemoglobin A1c % Osmolality 310 H Lactic Acid Fup @ 2Hr Calcium Total Bilirubin Direct Bilirubin AST ALT Alkaline Phosphatase Troponin I High Sens 6853.4 H* D C-Reactive Protein Total Protein Albumin Procalcitonin 01/12/21 01/12/21 01/12/21 18:37 19:58 20:10 MCV MCH MCHC RDW Plt Count MPV Immature Gran % (Auto) Neut % (Auto) Lymph % (Auto) [place] % (Auto) Eos % (Auto) Baso % (Auto) Lymph # (Auto) [place] # (Auto) Eos # (Auto) Baso # (Auto) Abs Immat Gran (auto) Absolute Neuts (auto) Absolute Nucleated RBC Nucleated RBC % (auto) ESR PT 13.6 H INR 1.2 H PTT (Heparin Protocol) 44.2 L D VBG pH VBG pCO2 VBG pO2 VBG HCO3 VBG O2 Saturation VBG Base Excess Anion Gap Estim Creat Clear Calc Estimated GFR POC Glucose 366 H* Random Glucose Estimat Average Glucose Hemoglobin A1c % Osmolality Lactic Acid Fup @ 2Hr Calcium Total Bilirubin Direct Bilirubin AST ALT Alkaline Phosphatase Troponin I High Sens 9084.1 H* C-Reactive Protein Total Protein Albumin Procalcitonin 01/13/21 01/13/21 01/13/21 02:12 03:36 04:19 MCV Cancelled MCH Cancelled MCHC Cancelled RDW Cancelled Plt Count Cancelled MPV Cancelled Immature Gran % (Auto) Neut % (Auto) Lymph % (Auto) [place] % (Auto) Eos % (Auto) Baso % (Auto) Lymph # (Auto) [place] # (Auto) Eos # (Auto) Baso # (Auto) Abs Immat Gran (auto) Absolute Neuts (auto) Absolute Nucleated RBC Cancelled Nucleated RBC % (auto) Cancelled ESR PT INR PTT (Heparin Protocol) 129.5 H* D 77.7 D VBG pH VBG pCO2 VBG pO2 VBG HCO3 VBG O2 Saturation VBG Base Excess Anion Gap Estim Creat Clear Calc Estimated GFR POC Glucose Random Glucose Estimat Average Glucose Hemoglobin A1c % Osmolality Lactic Acid Fup @ 2Hr Calcium Total Bilirubin Direct Bilirubin AST ALT Alkaline Phosphatase Troponin I High Sens C-Reactive Protein Total Protein Albumin Procalcitonin 01/13/21 01/13/21 01/13/21 04:19 04:19 04:19 MCV 92.8 MCH 30.1 MCHC 32.4 RDW 13.3 Plt Count 203 MPV 11.0 Immature Gran % (Auto) 0.6 H Neut % (Auto) 80.5 H Lymph % (Auto) 9.7 L [place] % (Auto) 7.4 Eos % (Auto) 1.6 Baso % (Auto) 0.2 Lymph # (Auto) 1.2 [place] # (Auto) 0.9 Eos # (Auto) 0.2 Baso # (Auto) 0.0 Abs Immat Gran (auto) 0.07 H Absolute Neuts (auto) 9.9 H Absolute Nucleated RBC 0.000 Nucleated RBC % (auto) 0.0 ESR PT Cancelled INR Cancelled PTT (Heparin Protocol) VBG pH VBG pCO2 VBG pO2 VBG HCO3 VBG O2 Saturation VBG Base Excess Anion Gap 15 Estim Creat Clear Calc 38.9 Estimated GFR 26 POC Glucose Random Glucose 323 H Estimat Average Glucose Hemoglobin A1c % Osmolality Lactic Acid Fup @ 2Hr Calcium 8.2 L D Total Bilirubin 0.8 Direct Bilirubin 0.3 AST 30 ALT 8 Alkaline Phosphatase 82 D Troponin I High Sens C-Reactive Protein 27.97 H Total Protein 6.1 L D Albumin 2.8 L D Procalcitonin 01/13/21 01/13/21 01/13/21 04:19 07:33 08:48 MCV MCH MCHC RDW Plt Count MPV Immature Gran % (Auto) Neut % (Auto) Lymph % (Auto) [place] % (Auto) Eos % (Auto) Baso % (Auto) Lymph # (Auto) [place] # (Auto) Eos # (Auto) Baso # (Auto) Abs Immat Gran (auto) Absolute Neuts (auto) Absolute Nucleated RBC Nucleated RBC % (auto) ESR PT 12.9 INR 1.1 PTT (Heparin Protocol) 44.3 L D VBG pH VBG pCO2 VBG pO2 VBG HCO3 VBG O2 Saturation VBG Base Excess Anion Gap Estim Creat Clear Calc Estimated GFR POC Glucose 290 H 280 H Random Glucose Estimat Average Glucose Hemoglobin A1c % Osmolality Lactic Acid Fup @ 2Hr Calcium Total Bilirubin Direct Bilirubin AST ALT Alkaline Phosphatase Troponin I High Sens C-Reactive Protein Total Protein Albumin Procalcitonin 01/13/21 11:12 MCV MCH MCHC RDW Plt Count MPV Immature Gran % (Auto) Neut % (Auto) Lymph % (Auto) [place] % (Auto) Eos % (Auto) Baso % (Auto) Lymph # (Auto) [place] # (Auto) Eos # (Auto) Baso # (Auto) Abs Immat Gran (auto) Absolute Neuts (auto) Absolute Nucleated RBC Nucleated RBC % (auto) ESR PT INR PTT (Heparin Protocol) VBG pH VBG pCO2 VBG pO2 VBG HCO3 VBG O2 Saturation VBG Base Excess Anion Gap Estim Creat Clear Calc Estimated GFR POC Glucose 302 H Random Glucose Estimat Average Glucose Hemoglobin A1c % Osmolality Lactic Acid Fup @ 2Hr Calcium Total Bilirubin Direct Bilirubin AST ALT Alkaline Phosphatase Troponin I High Sens C-Reactive Protein Total Protein Albumin Procalcitonin Microbiology Microbiology Results: Microbiology 01/12/21 09:39 Blood Culture - Preliminary Blood - Venous No growth after 24 hours. 01/12/21 09:25 Blood Culture - Preliminary Blood - Venous No growth after 24 hours. Assessment and Plan (1) NSTEMI (non-ST elevated myocardial infarction): Status: Acute (2) Sepsis: Status: Acute (3) Acute hyperglycemia: Status: Acute Assessment and Plan: 69-year-old female who came to the hospital because of chest pain, uncontrolled hypertension, uncontrolled diabetes, NSTEMI. 1. Sepsis/cellulitis: Left lower leg Lactic acid normal, blood cultures sent Sepsis exam completed Patient was given Vanco in the ED and Zosyn, will continue broad-spectrum coverage. moniter vanco trough Id evaluation 2. NSTEMI:hx of cads/p stent Troponins are significantly elevated in 8599-1010 -6k-9k. Cardiac echo d/w Cardio -on heparin drip. Continue aspirin, statin, plavix , beta-loulou and nitro paste, amlodipine .no need further trops. may need stress test after completeing 48 hours herpain 3. Uncontrolled hypertension: Given nitro paste and metoprolol IV in the ED, we added p.o. and metoprolol may need to add amlodipine if blood pressure does not respond. 4. Uncontrolled diabetes: Patient was given IV insulin, fingersticks trending 290-300's Fingersticks with sliding scale coverage, hemoglobin A1c around 10 continue Lantus 20 units , sliding scale coverage. 5. Right leg x-ray shows fracture of distal tibia and fibula ? ,talus laterally displaced-moves right and left extermity fine , no pain ? nydia shah says has this from 3 years, folowed with ortho outpatient -did not persue further managemnt, moves both lower ext no pain 6. ckd: ? vincent unclear : at least has ckd3 ( from 2013 nephro notes) cr today around 1.8range 2+ protein in urine she follows up with Dr. Bro, will add Nephro evaluation. her brother -Mr Rojas no is [phone]( home ), ). Quality Stroke Does the patient have a stroke diagnosis?: No VTE Prior VTE?: No VTE Risk Level:: Medical - moderate - high VTE Device Contraindication: N/A - Device Ordered VTE Drug Contraindication: N/A - Med Ordered
[2021-01-13 12:04] LABS: PTT Heparin Drip 138.5 SEC (53-77.9)
[2021-01-13] MEDS: Heparin Sodium,Porcine/1/2NS 25,000 UNIT/250 ML IV.SOLN 15.45 UNIT IVCONT (12:05)
[2021-01-13] MEDS: amLODIPine Besylate 5 MG TABLET PO (12:08)
[2021-01-13 13:18] LABS: PTT Heparin Drip 73.3 SEC (53-77.9)
[2021-01-13] MEDS: vancomycin HCL 750 MG in 0.9 % Sodium Chloride 250 ML 265 MG IV ×2 (13:37→13:46)
[2021-01-13] MEDS: Nitroglycerin 2 % Oint 1 GM Packet 1 INCH TRANSDERMA ×2 (13:38→20:45)
--- NOTE | 2021-01-13 14:10 | PM.CNNEP ---
History of Present Illness Reason for Consult Consult date: 01/13/21 Reason for consult: CKD 4 Chief Complaint Chief complaint: NSTEMI History of Present Illness Narrative: 70-year-old female with CKD 4 who is followed up by WILNER who came to the hospital following a fall. She was feeling dizzy which apparently led to the fall.? She did not lose consciousness, in addition she is having 3-4 days of chest pain left side going to her left arm. She was diagnosed to have NSTEMI and cellulitis and was admitted for further care. Nep[hrology has been consulted to assist in her clinical care during her current hospital stay Review of Systems Review of Systems Yes all other systems are reviewed and are negative [facility] Past Medical History Medical History Amputation of left foot CAD (coronary artery disease) Diabetes High cholesterol HTN (hypertension) Kidney disease Social History Social History Household Members: None Housing: Apartment Do you presently have visiting nurse or other home services: Yes (Visiting nurse) Patient Tobacco Use Status: Never used Tobacco Meds Allergies Allergy/AdvReac Type Severity Reaction Status Date / Time Sulfa (Sulfonamide Allergy Mild LOOPY, Verified 01/12/21 09:28 Antibiotics) memory Active Medications: Current Medications Acetaminophen (Acetaminophen 325 Mg Tablet) 650 mg PO Q6H PRN PRN Reason: headaches Last Admin: 01/13/21 12:20 Dose: 650 mg Documented by: Amlodipine Besylate (Amlodipine Besylate 5 Mg Tablet) 5 mg PO DAILY [facility]; Protocol Last Admin: 01/13/21 12:08 Dose: 5 mg Documented by: Aspirin (Aspirin Enteric Coated 81 Mg Tablet.) 81 mg PO DAILY [facility] Last Admin: 01/13/21 09:33 Dose: 81 mg Documented by: Atorvastatin Calcium (Atorvastatin Calcium 80 Mg Tablet) 80 mg PO BEDTIME [facility] Clopidogrel Bisulfate (Clopidogrel Bisulfate 75 Mg Tablet) 75 mg PO DAILY [facility] Last Admin: 01/13/21 09:32 Dose: 75 mg Documented by: Dextrose (Dextrose 50 % 25 Gm/50 Ml Vial) 25 gm IVPUSH Q15M PRN; Protocol PRN Reason: per Hypoglycemia Standing Ord. Glucose (Glucose Gel 15 Gm Gel..Gram.) 15 gm PO Q15M PRN; Protocol PRN Reason: per Hypoglycemia Standing Ord. Heparin Sodium (Porcine) (Heparin Sodium,Porcine 5,000 Unit/Ml Vial) 5,400 unit 40 unit/kg (5400 unit) IVPUSH PROTOCOL BOLUS PRN; Protocol PRN Reason: 40 unit/kg - Heparin Protocol Last Admin: 01/13/21 04:48 Dose: 5,400 unit Documented by: Heparin Sodium (Porcine) (Heparin Sodium,Porcine 5,000 Unit/Ml Vial) 10,000 unit IVPUSH PROTOCOL BOLUS PRN; Protocol PRN Reason: 80 unit/kg - Heparin Protocol Heparin Sodium/Sodium Chloride () 25,000 unit in 250 mls @ 0 mls/hr IVCONT .Q0M [facility]; Protocol Last Titration: 01/13/21 13:45 Dose: 7.35 units/kg/hr, 10 mls/hr Documented by: Piperacillin Sod/Tazobactam (Sod 2.25 gm/ Sodium Chloride) 50 mls @ 100 mls/hr IV Q6H [facility] Last Infusion: 01/13/21 12:55 Dose: Infused Documented by: Vancomycin HCl 750 mg/ Sodium (Chloride) 265 mls @ 265 mls/hr IV Q24H [facility] Last Admin: 01/13/21 13:46 Dose: 265 mls/hr Documented by: Insulin Glargine (Insulin Glargine,Hum.Rec.Anlog 100 Unit/Ml 10 Ml Vial) 20 unit SUBCUT DAILY [facility] Last Admin: 01/13/21 09:33 Dose: 20 unit Documented by: Insulin Human Lispro (Insulin Lispro 100 Unit/Ml 3 Ml Vial) 0 unit SUBCUT QIDACHS [facility]; Protocol Last Admin: 01/13/21 12:20 Dose: 12 unit Documented by: Metoprolol Tartrate (Metoprolol Tartrate 50 Mg Tablet) 50 mg PO BID [facility]; Protocol Last Admin: 01/13/21 09:32 Dose: 50 mg Documented by: Nitroglycerin (Nitroglycerin 2 % Oint 1 Gm Packet) 1 inch TRANSDERMA RQ6H WHILE AWAKE [facility] Last Admin: 01/13/21 13:38 Dose: 1 inch Documented by: Omeprazole (Omeprazole 20 Mg Capsule.) 20 mg PO DAILY@0630 [facility] Last Admin: 01/13/21 05:59 Dose: 20 mg Documented by: Pharmacy Consult (Consult Rx Vancomycin Dosing) 1 each MISCELLANE DAILY PRN PRN Reason: Consult order Sodium Chloride (0.9 % Sodium Chloride Flush 3 Ml Syringe) [facility] Last Admin: 01/13/21 13:38 Dose: 3 ml Documented by: Home Medications Medication Instructions Recorded Confirmed Last Taken Type Lasix 40 mg PO DAILY 01/12/21 01/12/21 Unknown History atorvastatin 80 mg tablet 1 tab PO DAILY 01/12/21 01/12/21 Unknown History dulaglutide 0.75 mg/0.5 mL 0.5 ml SUBCUT QWEEK 01/12/21 01/12/21 01/06/21 20:00 History subcutaneous pen injector (Trulicity) insulin lispro 100 unit/mL 50 unit SUBCUT TID 01/12/21 01/12/21 Unknown History subcutaneous pen (Humalog KwikPen (U-100) Insulin) omeprazole 20 mg PO DAILY 01/12/21 01/12/21 Unknown History gabapentin 600 mg tablet 1 tab PO TID 01/13/21 01/13/21 Unknown History metoprolol tartrate 50 mg PO BID 01/13/21 01/13/21 Unknown History Physical Exam Vital Signs: Last Vital Signs Temp 97.5 F 01/13/21 11:59 Pulse 70 01/13/21 12:08 Resp 18 01/13/21 11:59 BP 169/62 H 01/13/21 12:08 Pulse Ox 98 01/13/21 11:59 Body Mass Index 48.2 Const General: No in distress Orientation/consciousness: patient oriented x3 Eyes EOM: EOMs intact bilaterally Neck Neck: Yes supple Resp Auscultation: diminished lung sounds Cardio Jugular venous distension: no JVD GI Palpation (GI): Soft to palpation Neuro General: patient oriented x3 Results Lab Results Result Diagrams: 01/13/21 04:19 01/13/21 04:19 Lab results: Chemistry 01/12/21 01/13/21 09:25 04:19 Sodium 133 L 136 Potassium 5.1 4.7 Carbon Dioxide 24 23 BUN 30 H 35 H Creatinine 2.22 H 1.88 H Calcium 9.7 8.2 L D Hematology 01/12/21 01/12/21 01/13/21 09:25 13:27 04:19 WBC 16.1 H 15.1 H Cancelled Hgb 14.5 13.1 Cancelled Plt Count 255 224 Cancelled 01/13/21 04:19 WBC 12.2 H Hgb 12.6 Plt Count 203 Urinalysis 01/12/21 11:24 Urine Color STRAW Urine Appearance HAZY Urine pH 6.0 Ur Specific [place] 1.015 Urine Protein 2+ H Urine Glucose (UA) >=1000 H Urine Ketones 15 Urine Blood 2+ H Urine Nitrite NEG Ur Leukocyte Esterase TRACE H Urine RBC 5-9 H Urine WBC 76-150 H Ur Squamous Epith Cells TRACE Assessment and Plan (1) CKD (chronic kidney disease) stage 4, GFR 15-29 ml/min: Status: Acute Renal functions close to baseline Needs BP to be better controlled Volume status OK. On Heparin for NSTEMI Antibiotics dosed for GFR Monitor vancomycin levels Concur with rest of current management Procedures Date of Service Date of Service: 01/13/21
--- NOTE | 2021-01-13 15:10 | MHC.CM.PN ---
CM ATTEMPTED TO SEE PT WHO WAS RECEIVING CARE CM TO RETURN
[2021-01-13 16:29] LABS: Glucose, Whole Blood 235 mg/dL (60-115)
[2021-01-13 20:15] LABS: PTT Heparin Drip 53.5 SEC (53-77.9)
[2021-01-13 20:40] LABS: Glucose, Whole Blood 226 mg/dL (60-115)
[2021-01-13] MEDS: Atorvastatin Calcium 80 MG TABLET PO (20:44)
[2021-01-13] MEDS: Gabapentin 600 MG TABLET PO (20:44)
--- NOTE | 2021-01-13 21:50 | P.CNID_ITS ---
History of Present Illness Data of Consult Service Date: 01/13/21 Requesting physician: Benjamin Cunningham Primary Care Provider: Unknown Physician HPI Reason for consult: possible infection,UTI versus cellulitis She presents to hospital after fall two days ago when dizzy and then yesterday. She has no fever or chills but had urinary frequency. She has had left TMA and chronic ulcer last 5-6 years with no change and no heat but slight chronic redness in leg. Review of Systems Review of Systems: Yes all other systems are reviewed and are negative [facility] Past Medical History Medical History (Updated 02/04/21 @ 00:03 by Fabio Sykes) Acute and subacute ischemic heart disease Acute hyperglycemia Amputation of left foot CAD (coronary artery disease) CKD (chronic kidney disease) CKD (chronic kidney disease) stage 4, GFR 15-29 ml/min Diabetes High cholesterol HTN (hypertension) Kidney disease Family History Family history: reviewed and not pertinent Social History Social History Household Members: None Housing: Apartment Do you presently have visiting nurse or other home services: Yes (Visiting nurse) Patient Tobacco Use Status: Never used Tobacco service: No Meds Allergies Allergy/AdvReac Type Severity Reaction Status Date / Time Sulfa (Sulfonamide Allergy Mild LOOPY, Verified 01/12/21 09:28 Antibiotics) memory Active Medications: Current Medications Acetaminophen (Acetaminophen 325 Mg Tablet) 650 mg PO Q6H PRN PRN Reason: headaches Last Admin: 01/13/21 12:20 Dose: 650 mg Documented by: Amlodipine Besylate (Amlodipine Besylate 5 Mg Tablet) 5 mg PO DAILY [facility]; Protocol Last Admin: 01/13/21 12:08 Dose: 5 mg Documented by: Aspirin (Aspirin Enteric Coated 81 Mg Tablet.) 81 mg PO DAILY [facility] Last Admin: 01/13/21 09:33 Dose: 81 mg Documented by: Atorvastatin Calcium (Atorvastatin Calcium 80 Mg Tablet) 80 mg PO BEDTIME JILLIAN Last Admin: 01/13/21 20:44 Dose: 80 mg Documented by: Clopidogrel Bisulfate (Clopidogrel Bisulfate 75 Mg Tablet) 75 mg PO DAILY [facility] Last Admin: 01/13/21 09:32 Dose: 75 mg Documented by: Dextrose (Dextrose 50 % 25 Gm/50 Ml Vial) 25 gm IVPUSH Q15M PRN; Protocol PRN Reason: per Hypoglycemia Standing Ord. Gabapentin (Gabapentin 600 Mg Tablet) 600 mg PO TID [facility] Last Admin: 01/13/21 20:44 Dose: 600 mg Documented by: Glucose (Glucose Gel 15 Gm Gel..Gram.) 15 gm PO Q15M PRN; Protocol PRN Reason: per Hypoglycemia Standing Ord. Heparin Sodium (Porcine) (Heparin Sodium,Porcine 5,000 Unit/Ml Vial) 5,400 unit 40 unit/kg (5400 unit) IVPUSH PROTOCOL BOLUS PRN; Protocol PRN Reason: 40 unit/kg - Heparin Protocol Last Admin: 01/13/21 04:48 Dose: 5,400 unit Documented by: Heparin Sodium (Porcine) (Heparin Sodium,Porcine 5,000 Unit/Ml Vial) 10,000 unit IVPUSH PROTOCOL BOLUS PRN; Protocol PRN Reason: 80 unit/kg - Heparin Protocol Heparin Sodium/Sodium Chloride () 25,000 unit in 250 mls @ 0 mls/hr IVCONT .Q0M JILLIAN; Protocol Last Titration: 01/13/21 20:26 Dose: 7.35 units/kg/hr, 10 mls/hr Documented by: Piperacillin Sod/Tazobactam (Sod 2.25 gm/ Sodium Chloride) 50 mls @ 100 mls/hr IV Q6H [facility] Last Infusion: 01/13/21 17:51 Dose: Infused Documented by: Vancomycin HCl 750 mg/ Sodium (Chloride) 265 mls @ 265 mls/hr IV Q24H [facility] Last Infusion: 01/13/21 16:48 Dose: Infused Documented by: Insulin Glargine (Insulin Glargine,Hum.Rec.Anlog 100 Unit/Ml 10 Ml Vial) 20 unit SUBCUT DAILY [facility] Last Admin: 01/13/21 09:33 Dose: 20 unit Documented by: Insulin Human Lispro (Insulin Lispro 100 Unit/Ml 3 Ml Vial) 0 unit SUBCUT QIDACHS [facility]; Protocol Last Admin: 01/13/21 20:44 Dose: 4 unit Documented by: Metoprolol Tartrate (Metoprolol Tartrate 50 Mg Tablet) 50 mg PO BID JILLIAN; Pr otocol Last Admin: 01/13/21 20:44 Dose: 50 mg Documented by: Nitroglycerin (Nitroglycerin 2 % Oint 1 Gm Packet) 1 inch TRANSDERMA RQ6H WHILE AWAKE [facility] Last Admin: 01/13/21 20:45 Dose: 1 inch Documented by: Omeprazole (Omeprazole 20 Mg Alessandro.) 20 mg PO DAILY@0630 [facility] Last Admin: 01/13/21 05:59 Dose: 20 mg Documented by: Pharmacy Consult (Consult Rx Vancomycin Dosing) 1 each MISCELLANE DAILY PRN PRN Reason: Consult order Sodium Chloride (0.9 % Sodium Chloride Flush 3 Ml Syringe) 3 ml IVFLUSH QSHIFT [facility] Last Admin: 01/13/21 20:46 Dose: 3 ml Documented by: Home Medications Medication Instructions Recorded Confirmed Last Taken Type Lasix 40 mg PO DAILY 01/12/21 01/12/21 Unknown History atorvastatin 80 mg tablet 1 tab PO DAILY 01/12/21 01/12/21 Unknown History omeprazole 20 mg PO DAILY 01/12/21 01/12/21 Unknown History metoprolol tartrate 50 mg PO BID 01/13/21 01/13/21 Unknown History Physical Exam Vital Signs: Vital Signs: Last Vital Signs Temp 99 F 01/13/21 20:18 Pulse 73 01/13/21 20:18 Resp 20 01/13/21 20:18 BP 155/71 H 01/13/21 20:18 Pulse Ox 90 L 01/13/21 20:18 Body Mass Index 48.2 Const: General: cooperative HENMT: Head: Yes normal to inspection Mouth: Normal oral and palatal mucosa present Eyes: General: appearance normal, both eyes and all related structures Resp: Effort & Inspection: normal respiratory effort Cardio: Rate: regular rate Rhythm: regular rhythm GI: Palpation (GI): Soft to palpation and nontender Skin: General skin exam: no rashes or lesions noted Extrem: Other: left leg chronic appearing rubor no tinea pedis chronic ulcer plantar Results Labs CBC & Chem 7: 01/23/21 12:48 01/27/21 06:06 Labs: Short CBC 01/13/21 01/13/21 Range/Units 04:19 04:19 WBC Cancelled 12.2 H Hgb Cancelled 12.6 Hct Cancelled 38.9 Plt Count Cancelled 203 BMP 01/13/21 04:19 Sodium 136 Potassium 4.7 Chloride 103 Carbon Dioxide 23 BUN 35 H Creatinine 1.88 H Calcium 8.2 L D Liver Function 01/13/21 Range/Units 04:19 Total Bilirubin 0.8 (0.0-1.0) mg/dL Direct Bilirubin 0.3 (0.0-0.5) mg/dL AST 30 (5-31) U/L ALT 8 (0-31) U/L Alkaline Phosphatase 82 D (39-117) U/L Albumin 2.8 L D (3.5-5.0) g/dL Microbiology Microbiology Results: Microbiology 01/12/21 00:00 Urine Catheterized - Straight Catheter Urine Culture - Preliminary Culture in progress. 01/12/21 09:39 Blood - Venous Blood Culture - Preliminary No growth after 24 hours. 01/12/21 09:25 Blood - Venous Blood Culture - Preliminary No growth after 24 hours. Assessment and Plan (1) CKD (chronic kidney disease) stage 4, GFR 15-29 ml/min: (2) CKD (chronic kidney disease): (3) Sepsis: Qualifiers: Sepsis acute organ dysfunction status: with acute organ dysfunction Sepsis type: sepsis due to unspecified organism Severe sepsis acute organ dysfunction type: encephalopathy Severe sepsis shock status: without septic s hock Qualified Code(s): A41.9 - Sepsis, unspecified organism; R65.20 - Severe sepsis without septic shock; G93.40 - Encephalopathy, unspecified Status: Resolved There is concern over urinary source as sepsis. THere is no evidence of cellulitis and ulcer left leg looks chronic Would continue Zosyn and await urine culture. Would stop Vancomycin
[2021-01-14] VITALS (9 sets, daily range): BP systolic 129–188; BP diastolic 59–75; PULSE 18–79; RESP 18–20; TEMP 19.4–37.1; O2SAT 90–95
[2021-01-14 02:00] LABS: PTT Heparin Drip 57.1 SEC (53-77.9)
[2021-01-14] MEDS: Piperacillin Sodium/Tazobactam 2.25 GM in 0.9 % Sodium Chloride 50 ML IV ×4 (05:51→23:10)
[2021-01-14] MEDS: Omeprazole 20 MG CAPSULE.DR PO (05:51)
[2021-01-14] MEDS: Acetaminophen 325 MG TABLET 650 MG PO ×2 (06:20→17:29)
[2021-01-14 06:29] LABS: Hematocrit 39.5 % (37-47); Hemoglobin 12.7 g/dl (12.0-16.0); Mean Corpuscular HGB Conc 32.2 g/dl (31.0-35.0); Mean Corpuscular Hemoglobin 30.2 pg (27.0-33.0); Mean Platelet Volume 11.3 fL (9.4-12.3); Platelet Count 217 X10*3/uL (160-400); Red Cell Distribution Width 13.2 % (11.0-16.0); White Blood Count 9.2 X10*3/uL (4.8-10.8)
[2021-01-14 06:38] LABS: PTT Heparin Drip 53.9 SEC (53-77.9)
[2021-01-14 06:59] LABS: Anion Gap 11 (12-20); Blood Urea Nitrogen 36 mg/dL (9-16); Calcium 8.1 mg/dL (8.4-10.2); Carbon Dioxide 27 mmol/L (22-29); Chloride 105 mmol/L (96-108); Creatinine Clr Calc Pharmacy 38.8; Estimated Glomerular Filt Rate 26; Glucose Random 280 mg/dL (60-115); Potassium 4.8 mmol/L (3.3-5.1); Sodium 138 mmol/L (135-145)
[2021-01-14 07:39] LABS: Glucose, Whole Blood 242 mg/dL (60-115)
[2021-01-14] MEDS: Gabapentin 600 MG TABLET PO ×3 (08:46→20:36)
[2021-01-14] MEDS: amLODIPine Besylate 5 MG TABLET PO (08:46)
[2021-01-14] MEDS: 0.9 % Sodium Chloride Flush 3 ML SYRINGE IVFLUSH ×2 (08:47→13:53)
[2021-01-14] MEDS: Clopidogrel Bisulfate 75 MG TABLET PO (08:47)
[2021-01-14] MEDS: Nitroglycerin 2 % Oint 1 GM Packet 1 INCH TRANSDERMA ×3 (08:47→20:36)
[2021-01-14] MEDS: Aspirin Enteric Coated 81 MG TABLET.DR PO (08:47)
[2021-01-14] MEDS: Insulin Lispro 100 UNIT/ML 3 ML VIAL SUBCUT ×4 (08:48→20:38)
[2021-01-14] MEDS: Insulin Glargine,Hum.rec.anlog 100 UNIT/ML 10 ML VIAL 20 UNIT SUBCUT (08:48)
[2021-01-14] MEDS: Metoprolol Tartrate 50 MG TABLET PO ×2 (08:49→20:37)
--- NOTE | 2021-01-14 10:05 | PM.PNCARD ---
Subjective Subjective Date of Service: 01/14/21 Principal diagnosis: NSTEMI Interval history: Patient has no cardiac symptoms to report at this point time. Hemodynamically stable. No ventricular arrhythmias. Echocardiogram shows wall motion abnormality in mid to distal LAD territory. Review of Systems Constitutional: Reports no additional constitutional complaints Cardiovascular: Reports no additional cardiovascular complaints Respiratory: Reports no additional respiratory complaints Gastrointestinal: Reports no additional gastrointestinal complaints Skin/Breast: Reports system reviewed and no additional complaints, except as docu Reports system reviewed and no additional complaints, except as documented Psychiatric: Reports no additional psychiatric complaints Endocrine: Reports no additional endocrine complaints Hematologic/Lymphatic: Reports no additional hematologic/lymphatic complaints Physical Exam Vital Signs: Last Vital Signs Temp 97.1 F 01/14/21 07:12 Pulse 72 01/14/21 08:49 Resp 18 01/14/21 07:12 BP 129/62 01/14/21 08:49 Pulse Ox 93 01/14/21 07:12 Body Mass Index 48.2 Const General: cooperative, comfortable, no acute distress, alert and awake Nutritional Appearance: obese Orientation/consciousness: patient oriented x3 Neck Neck: Yes trachea midline, Yes supple and Yes no JVD Resp Effort & Inspection: decreased respiratory effort Auscultation: no crackles and no rales Cardio Jugular venous distension: no JVD Palpation: normal PMI Rate: regular rate Rhythm: regular rhythm Heart sounds: S1 normal heart sound present, S2 normal heart sound present, no click, no gallops and no murmurs GI Inspection: Yes obesity Auscultation: normal bowel sounds Neuro General: patient oriented x3 and no focal motor deficits Extrem General: Yes no clubbing, cyanosis or edema Results Labs and Meds Result diagrams: 01/14/21 06:07 01/14/21 06:07 Lab results: Laboratory Results - last 24 hr 01/13/21 01/13/21 01/13/21 10:58 11:12 12:59 WBC RBC Hgb Hct MCV MCH MCHC RDW Plt Count MPV Absolute Nucleated RBC Nucleated RBC % (auto) PTT (Heparin Protocol) 138.5 H* D 73.3 D Sodium Potassium Chloride Carbon Dioxide Anion Gap BUN Creatinine Estim Creat Clear Calc Estimated GFR POC Glucose 302 H Random Glucose Calcium 01/13/21 01/13/21 01/13/21 15:46 19:46 20:23 WBC RBC Hgb Hct MCV MCH MCHC RDW Plt Count MPV Absolute Nucleated RBC Nucleated RBC % (auto) PTT (Heparin Protocol) 53.5 D Sodium Potassium Chloride Carbon Dioxide Anion Gap BUN Creatinine Estim Creat Clear Calc Estimated GFR POC Glucose 235 H 226 H Random Glucose Calcium 01/14/21 01/14/21 01/14/21 01:40 06:06 06:07 WBC 9.2 RBC 4.20 Hgb 12.7 Hct 39.5 MCV 94.0 MCH 30.2 MCHC 32.2 RDW 13.2 Plt Count 217 MPV 11.3 Absolute Nucleated RBC 0.000 Nucleated RBC % (auto) 0.0 PTT (Heparin Protocol) 57.1 53.9 Sodium Potassium Chloride Carbon Dioxide Anion Gap BUN Creatinine Estim Creat Clear Calc Estimated GFR POC Glucose Random Glucose Calcium 01/14/21 01/14/21 06:07 07:13 WBC RBC Hgb Hct MCV MCH MCHC RDW Plt Count MPV Absolute Nucleated RBC Nucleated RBC % (auto) PTT (Heparin Protocol) Sodium 138 Potassium 4.8 Chloride 105 Carbon Dioxide 27 Anion Gap 11 L BUN 36 H Creatinine 1.88 H Estim Creat Clear Calc 38.8 Estimated GFR 26 POC Glucose 242 H Random Glucose 280 H Calcium 8.1 L Progress Note: A&P Assessment and plan (1) NSTEMI (non-ST elevated myocardial infarction): Status: Acute Assessment and Plan: Non ST-elevation myocardial infarction patient with underlying coronary artery disease, could be secondary to sepsis with known chronic total occlusion of the LAD with regional wall motion abnormality. However significant ischemia needs to be ruled out. Continue IV heparin for total of 48 hours. Continue current aggressive dual antiplatelet therapy as well as high-intensity statin therapy and medical therapy. Blood pressure is optimized. Inpatient myocardial perfusion imaging will be pursued with resting done today and stress testing done tomorrow. Patient is agreeable with this management plan. Further treatment based on finding of stress testing. Will follow with the patient. Fall Risk Details Current Medications: Current Medications Acetaminophen (Acetaminophen 325 Mg Tablet) 650 mg PO Q6H PRN PRN Reason: headaches Last Admin: 01/14/21 06:20 Dose: 650 mg Documented by: Amlodipine Besylate (Amlodipine Besylate 5 Mg Tablet) 5 mg PO DAILY [facility]; Protocol Last Admin: 01/14/21 08:46 Dose: 5 mg Documented by: Aspirin (Aspirin Enteric Coated 81 Mg Tablet.) 81 mg PO DAILY [facility] Last Admin: 01/14/21 08:47 Dose: 81 mg Documented by: Atorvastatin Calcium (Atorvastatin Calcium 80 Mg Tablet) 80 mg PO BEDTIME [facility] Last Admin: 01/13/21 20:44 Dose: 80 mg Documented by: Clopidogrel Bisulfate (Clopidogrel Bisulfate 75 Mg Tablet) 75 mg PO DAILY [facility] Last Admin: 01/14/21 08:47 Dose: 75 mg Documented by: Dextrose (Dextrose 50 % 25 Gm/50 Ml Vial) 25 gm IVPUSH Q15M PRN; Protocol PRN Reason: per Hypoglycemia Standing Ord. Gabapentin (Gabapentin 600 Mg Tablet) 600 mg PO TID [facility] Last Admin: 01/14/21 08:46 Dose: 600 mg Documented by: Glucose (Glucose Gel 15 Gm Gel..Gram.) 15 gm PO Q15M PRN; Protocol PRN Reason: per Hypoglycemia Standing Ord. Heparin Sodium (Porcine) (Heparin Sodium,Porcine 5,000 Unit/Ml Vial) 5,400 unit 40 unit/kg (5400 unit) IVPUSH PROTOCOL BOLUS PRN; Protocol PRN Reason: 40 unit/kg - Heparin Protocol Last Admin: 01/13/21 04:48 Dose: 5,400 unit Documented by: Heparin Sodium (Porcine) (Heparin Sodium,Porcine 5,000 Unit/Ml Vial) 10,000 unit IVPUSH PROTOCOL BOLUS PRN; Protocol PRN Reason: 80 unit/kg - Heparin Protocol Heparin Sodium/Sodium Chloride () 25,000 unit in 250 mls @ 0 mls/hr IVCONT .Q0M [facility]; Protocol Last Titration: 01/14/21 02:28 Dose: 7.35 units/kg/hr, 10 mls/hr Documented by: Piperacillin Sod/Tazobactam (Sod 2.25 gm/ Sodium Chloride) 50 mls @ 100 mls/hr IV Q6H [facility] Last Infusion: 01/14/21 06:36 Dose: Infused Documented by: Insulin Glargine (Insulin Glargine,Hum.Rec.Anlog 100 Unit/Ml 10 Ml Vial) 20 unit SUBCUT DAILY [facility] Last Admin: 01/14/21 08:48 Dose: 20 unit Documented by: Insulin Human Lispro (Insulin Lispro 100 Unit/Ml 3 Ml Vial) 0 unit SUBCUT QIDACHS [facility]; Protocol Last Admin: 01/14/21 08:48 Dose: 6 unit Documented by: Metoprolol Tartrate (Metoprolol Tartrate 50 Mg Tablet) 50 mg PO BID [facility]; Protocol Last Admin: 01/14/21 08:49 Dose: 50 mg Documented by: Nitroglycerin (Nitroglycerin 2 % Oint 1 Gm Packet) 1 inch TRANSDERMA RQ6H WHILE AWAKE [facility] Last Admin: 01/14/21 08:47 Dose: 1 inch Documented by: Omeprazole (Omeprazole 20 Mg Capsule.Dr) 20 mg PO DAILY@0630 [facility] Last Admin: 01/14/21 05:51 Dose: 20 mg Documented by: Pharmacy Consult (Consult Rx Vancomycin Dosing) 1 each MISCELLANE DAILY PRN PRN Reason: Consult order Sodium Chloride (0.9 % Sodium Chloride Flush 3 Ml Syringe) 3 ml IVFLUSH QSHIFT [facility] Last Admin: 01/14/21 08:47 Dose: 3 ml Documented by: Time Spent With Patient Time: Total time spent is greater than 50% in coordination of care (as documented) at patient's floor/unit and/or counseling patient: Time with patient: 25 - 35 minutes Progress Note: Quality Stroke Does the patient have a stroke diagnosis?: No Procedures Date of Service Date of Service: 01/14/21
--- NOTE | 2021-01-14 10:18 | MHC.CM.PN ---
met with pt who lives alone pt explains that she has a fisher dip net 3 x weekly ,she has her own ride home she does not anticapate needing services when dcd
[2021-01-14 11:33] LABS: Glucose, Whole Blood 255 mg/dL (60-115)
--- NOTE | 2021-01-14 12:08 | P.CDIC_ITS ---
CDI Concurrent Query Documentation Clarification: PHYSICIAN'S DOCUMENTATION REQUEST Date of Query: 01/14/21 1208 Patient Name: Caty Akers Admit Date: 01/12/21 Dear Doctor, A review of the medical record indicates additional documentation may be needed. Please review below and update the documentation accordingly. Clinical Indicators: Risk Factors/Clinical Indicators/Treatments weakness, falls, altered mental status, somnolent, confused Per H&P, Encephalopathy Based on the above, please further specify, in the Progress Notes, the known or suspected type of the documented encephalopathy: * Metabolic * Septic * Toxic * Toxic metabolic * Hypertensive * Anoxic * Alcoholic * Hepatic (reported as hepatic failure and needs further specificity as to acute, subacute, or chronic) * Due to a specified condition (such as UTI, hyponatremia, CVA, etc.) * Other (please specify) * Unable to determine Use of terms such as suspected, likely, concern for, or probable (associated with a specific diagnosis that is being evaluated, monitored, or treated as if it exists) are acceptable and can be coded in the inpatient setting, when documented at the time of discharge. Thank you, Rosa Smith RN Extension: [phone] Please use your independent medical judgment in providing your response. THIS QUERY IS PART OF THE PERMANENT MEDICAL RECORD Provider Response: Other Other Diagnosis: Unable to determined
--- NOTE | 2021-01-14 12:14 | P.CDIC_ITS ---
CDI Concurrent Query Documentation Clarification: PHYSICIAN'S DOCUMENTATION REQUEST Date of Query: 01/14/21 1214 Patient Name: Caty Akers Admit Date: 01/12/21 Dear Doctor, A review of the medical record indicates additional documentation may be indicated. Please review below and update the documentation accordingly. Clinical Indicators: Risk Factors/Clinical Indicators/Treatments Per ED notes, acute wound heel Per ID: No evidence of Cellulitis and ulcer left leg looks chronic PMH: IDDM Based on the above, could you please provide, in the Progress Notes, further information regarding the ulcer/wound: * Location of the ulcer/wound, including laterality * Type (etiology) of ulcer/wound: * Diabetic ulcer * Venous stasis ulcer * Arterial (ischemic) ulcer * Pressure (decubitus) ulcer * Traumatic wound * Non-healing surgical wound * Other * Unable to determine * For a non-pressure ulcer, please indicate the depth/severity: * Limited to the breakdown of skin * With fat layer exposed * With necrosis of muscle * With necrosis of bone * Other * Unable to determine * If a pressure ulcer, please also include the stage* of the ulcer: * Stage 1 - Skin intact, non-blanchable redness * Stage 2 - Partial thickness loss of dermis, includes intact or open blister * Stage 3 - Full thickness tissue not including bone, tendon, or muscle * Stage 4 - Full thickness tissue loss, including exposed bones, tendon, or muscle * Unstageable - Full thickness tissue loss in which the base of the ulcer is covered by slough (yellow, lew, romero, green or brown) and/or eschar (lew, brown, or black) in the wound bed. * Suspected deep tissue injury - Purple or maroon localized area of discolored intact skin or blood-filled blister due to damage of underlying soft tissues from pressure and/or shear. The area may be preceded by tissue that is painful, firm, mushy, boggy, warmer, or cooler as compare to adjacent tissue. * Unable to determine *Source: National Pressure Ulcer Advisory Panel (NPUAP) Use of terms such as suspected, likely, concern for, or probable (associated with a specific diagnosis that is being evaluated, monitored, or treated as if it exists) are acceptable and can be coded in the inpatient setting, when documented at the time of discharge. Thank you, Rosa Smith RN Extension: [phone] Please use your independent medical judgment in providing your response. THIS QUERY IS PART OF THE PERMANENT MEDICAL RECORD Provider Response: Other Other Diagnosis: Chronic traumatic wound
--- NOTE | 2021-01-14 12:14 | MHC.CDI.CONC ---
CDI Concurrent Query Documentation Clarification: PHYSICIAN'S DOCUMENTATION REQUEST Date of Query: 01/14/21 1214 Patient Name: Caty Akers Admit Date: 01/12/21 Dear Doctor, A review of the medical record indicates additional documentation may be indicated. Please review below and update the documentation accordingly. Clinical Indicators: Risk Factors/Clinical Indicators/Treatments Per ED notes, acute wound heel Per ID: No evidence of Cellulitis and ulcer left leg looks chronic PMH: IDDM Based on the above, could you please provide, in the Progress Notes, further information regarding the ulcer/wound: Location of the ulcer/wound, including laterality Type (etiology) of ulcer/wound: Diabetic ulcer Venous stasis ulcer Arterial (ischemic) ulcer Pressure (decubitus) ulcer Traumatic wound Non-healing surgical wound Other Unable to determine For a non-pressure ulcer, please indicate the depth/severity: Limited to the breakdown of skin With fat layer exposed With necrosis of muscle With necrosis of bone Other Unable to determine If a pressure ulcer, please also include the stage* of the ulcer: Stage 1 - Skin intact, non-blanchable redness Stage 2 - Partial thickness loss of dermis, includes intact or open blister Stage 3 - Full thickness tissue not including bone, tendon, or muscle Stage 4 - Full thickness tissue loss, including exposed bones, tendon, or muscle Unstageable - Full thickness tissue loss in which the base of the ulcer is covered by slough (yellow, lew, romero, green or brown) and/or eschar (lew, brown, or black) in the wound bed. Suspected deep tissue injury - Purple or maroon localized area of discolored intact skin or blood-filled blister due to damage of underlying soft tissues from pressure and/or shear. The area may be preceded by tissue that is painful, firm, mushy, boggy, warmer, or cooler as compare to adjacent tissue. Unable to determine *Source: National Pressure Ulcer Advisory Panel (NPUAP) Use of terms such as suspected, likely, concern for, or probable (associated with a specific diagnosis that is being evaluated, monitored, or treated as if it exists) are acceptable and can be coded in the inpatient setting, when documented at the time of discharge. Thank you, Rosa Smith RN Extension: [phone] Please use your independent medical judgment in providing your response. THIS QUERY IS PART OF THE PERMANENT MEDICAL RECORD Provider Response: Other Other Diagnosis: Chronic traumatic wound
--- NOTE | 2021-01-14 14:50 | HO.PM.IMPN ---
Subjective Subjective Date of Service: 01/14/21 Interval History: f/u on nstemi, no chest pain Review of Systems no chest pain no sob Physical Exam Vital Signs: Vital Signs: Pt see, vitals reviewed General: AO X 3, no acute distress Resp: CTA bilateral CVS: S1,S2,RRR GI: +BS, NT, no distention Skin: No rash Neuro: motor grossly intact Psych: appropriate affect Objective Data Active Medications Acetaminophen (Acetaminophen 325 Mg Tablet) 650 mg PO Q6H PRN PRN Reason: headaches Last Admin: 01/15/21 08:15 Dose: 650 mg Documented by: TONY Amlodipine Besylate (Amlodipine Besylate 5 Mg Tablet) 5 mg PO DAILY [facility]; Protocol Last Admin: 01/15/21 08:06 Dose: 5 mg Documented by: TONY Aspirin (Aspirin Enteric Coated 81 Mg Tablet.) 81 mg PO DAILY [facility] Last Admin: 01/15/21 08:06 Dose: 81 mg Documented by: TONY Atorvastatin Calcium (Atorvastatin Calcium 80 Mg Tablet) 80 mg PO BEDTIME [facility] Last Admin: 01/14/21 20:36 Dose: 80 mg Documented by: JEFFREY Clopidogrel Bisulfate (Clopidogrel Bisulfate 75 Mg Tablet) 75 mg PO DAILY [facility] Last Admin: 01/15/21 08:07 Dose: 75 mg Documented by: TONY Dextrose (Dextrose 50 % 25 Gm/50 Ml Vial) 25 gm IVPUSH Q15M PRN; Protocol PRN Reason: per Hypoglycemia Standing Ord. Gabapentin (Gabapentin 600 Mg Tablet) 600 mg PO TID [facility] Last Admin: 01/15/21 08:07 Dose: 600 mg Documented by: TONY Glucose (Glucose Gel 15 Gm Gel..Gram.) 15 gm PO Q15M PRN; Protocol PRN Reason: per Hypoglycemia Standing Ord. Heparin Sodium (Porcine) (Heparin Sodium,Porcine 5,000 Unit/Ml Vial) 5,400 unit 40 unit/kg (5400 unit) IVPUSH PROTOCOL BOLUS PRN; Protocol PRN Reason: 40 unit/kg - Heparin Protocol Last Admin: 01/13/21 04:48 Dose: 5,400 unit Documented by: JHONATAN Heparin Sodium (Porcine) (Heparin Sodium,Porcine 5,000 Unit/Ml Vial) 10,000 unit IVPUSH PROTOCOL BOLUS PRN; Protocol PRN Reason: 80 unit/kg - Heparin Protocol Heparin Sodium/Sodium Chloride () 25,000 unit in 250 mls @ 0 mls/hr IVCONT .Q0M [facility]; Protocol Last Admin: 01/14/21 15:49 Dose: 7.35 units/kg/hr, 10 mls/hr Documented by: ELIUD Cosigned by: CHANELL Piperacillin Sod/Tazobactam (Sod 2.25 gm/ Sodium Chloride) 50 mls @ 100 mls/hr IV Q6H [facility] Last Infusion: 01/15/21 13:14 Dose: 0 mls/hr Documented by: TONY Insulin Glargine (Insulin Glargine,Hum.Rec.Anlog 100 Unit/Ml 10 Ml Vial) 20 unit SUBCUT DAILY [facility] Last Admin: 01/15/21 08:07 Dose: 20 unit Documented by: TONY Insulin Human Lispro (Insulin Lispro 100 Unit/Ml 3 Ml Vial) 0 unit SUBCUT QIDACHS [facility]; Protocol Last Admin: 01/15/21 12:17 Dose: 6 unit Documented by: TONY Magnesium Hydroxide (Milk Of Magnesia 30 Ml Oral.Susp) 30 ml PO DAILY PRN PRN Reason: Constipation Metoprolol Tartrate (Metoprolol Tartrate 50 Mg Tablet) 50 mg PO BID [facility]; Protocol Last Admin: 01/15/21 08:07 Dose: 50 mg Documented by: TONY Nitroglycerin (Nitroglycerin 2 % Oint 1 Gm Packet) 1 inch TRANSDERMA RQ6H WHILE AWAKE [facility] Last Admin: 01/15/21 08:08 Dose: 1 inch Documented by: TONY Omeprazole (Omeprazole 20 Mg Capsule.Dr) 20 mg PO DAILY@0630 [facility] Last Admin: 01/15/21 05:50 Dose: 20 mg Documented by: JEFFREY Pharmacy Consult (Consult Rx Vancomycin Dosing) 1 each MISCELLANE DAILY PRN PRN Reason: Consult order Polyethylene Glycol (Polyethylene Glycol 3350 17 Gm Powd.Pack) 17 gm PO DAILY PRN PRN Reason: Constipation Last Admin: 01/14/21 15:49 Dose: 17 gm Documented by: ELIUD Sodium Chloride (0.9 % Sodium Chloride Flush 3 Ml Syringe) 3 ml IVFLUSH QSHIFT [facility] Last Admin: 01/15/21 08:08 Dose: 3 ml Documented by: TONY Labs CBC & Chem 7: 01/14/21 06:07 01/14/21 06:07 Labs: Laboratory Results - last 24 hr 01/14/21 01/14/21 01/14/21 16:11 18:17 20:19 PTT (Heparin Protocol) POC Glucose 221 H 231 H U Random Total Protein 125 H Urine Creatinine 66.53 01/15/21 01/15/21 01/15/21 06:36 07:36 12:01 PTT (Heparin Protocol) 55.7 POC Glucose 203 H 288 H U Random Total Protein Urine Creatinine Microbiology Microbiology Results: Microbiology 01/12/21 09:25 Blood Culture - Final Blood - Venous Coag negative Staphylococcus 01/12/21 00:00 Urine Culture - Final Urine Catheterized - Straight Catheter Strep agalactiae (Grp B) Escherichia coli 01/12/21 09:39 Blood Culture - Preliminary Blood - Venous No growth after 48 hours. Assessment and Plan (1) NSTEMI (non-ST elevated myocardial infarction): Status: Acute (2) Sepsis: Status: Acute (3) Acute hyperglycemia: Status: Acute Assessment and Plan: 69-year-old female who came to the hospital because of chest pain, uncontrolled hypertension, uncontrolled diabetes, NSTEMI. 1. Sepsis/cellulitis of leg, clinically looks better and looks mostly chronic. Off Vanco, no n Zosyn cultures negatives 2. NSTEMI:hx of cads/p stent Troponins are significantly elevated in [id number] -6k-9k. heparin drip, statin, bb stress by cardiology 3. Uncontrolled hypertension: Given nitro paste and metoprolol IV in the ED, we added p.o. and metoprolol may need to add amlodipine if blood pressure does not respond. 4. Diabetes, continue Lantus and SSI, monitor sugars 5. Right leg x-ray shows fracture of distal tibia and fibula ? ,talus laterally displaced-moves right and left extermity fine , no pain, chronic changes from injury 3 years ago. Outpatient f/u 6. ckd: ? vincent unclear : at least has ckd3 ( from 2013 nephro notes) cr today around 1.8range 2+ protein in urine she follows up with Dr. Bro, will add Nephro evaluation. her brother -Mr Rojas no is [phone]( [place] ), ). Quality Stroke Does the patient have a stroke diagnosis?: No VTE Prior VTE?: No VTE Risk Level:: Medical - moderate - high VTE Device Contraindication: N/A - Device Ordered VTE Drug Contraindication: N/A - Med Ordered
[2021-01-14] MEDS: polyethylene glycoL 3350 17 GM POWD.PACK PO (15:49)
[2021-01-14] MEDS: Heparin Sodium,Porcine/1/2NS 25,000 UNIT/250 ML IV.SOLN 10 UNIT IVCONT (15:49)
--- NOTE | 2021-01-14 16:00 | PM.PNNEP ---
Subjective Subjective Date of Service: 01/14/21 Principal diagnosis: NSTEMI Interval history: nsetmi , sepsis /cellulitis,ckd Physical Exam Vital Signs: Vital Signs: Last Vital Signs Temp 67 F L 01/14/21 11:23 Pulse 18 L 01/14/21 11:23 Resp 18 01/14/21 11:23 BP 130/59 L 01/14/21 11:23 Pulse Ox 91 L 01/14/21 11:23 Body Mass Index 48.2 Const: General: No in distress Orientation/consciousness: patient oriented x3 Eyes: EOM: EOMs intact bilaterally Neck: Neck: Yes supple Resp: Auscultation: diminished lung sounds Cardio: Jugular venous distension: no JVD GI: Palpation (GI): Soft to palpation Neuro: General: patient oriented x3 Objective Data Labs CBC & Chem 7: 01/14/21 06:07 01/14/21 06:07 Labs: Laboratory Results - last 24 hr 01/13/21 01/13/21 01/13/21 15:46 19:46 20:23 WBC RBC Hgb Hct MCV MCH MCHC RDW Plt Count MPV Absolute Nucleated RBC Nucleated RBC % (auto) PTT (Heparin Protocol) 53.5 D Sodium Potassium Chloride Carbon Dioxide Anion Gap BUN Creatinine Estim Creat Clear Calc Estimated GFR POC Glucose 235 H 226 H Random Glucose Calcium 01/14/21 01/14/21 01/14/21 01:40 06:06 06:07 WBC 9.2 RBC 4.20 Hgb 12.7 Hct 39.5 MCV 94.0 MCH 30.2 MCHC 32.2 RDW 13.2 Plt Count 217 MPV 11.3 Absolute Nucleated RBC 0.000 Nucleated RBC % (auto) 0.0 PTT (Heparin Protocol) 57.1 53.9 Sodium Potassium Chloride Carbon Dioxide Anion Gap BUN Creatinine Estim Creat Clear Calc Estimated GFR POC Glucose Random Glucose Calcium 01/14/21 01/14/21 01/14/21 06:07 07:13 10:54 WBC RBC Hgb Hct MCV MCH MCHC RDW Plt Count MPV Absolute Nucleated RBC Nucleated RBC % (auto) PTT (Heparin Protocol) Sodium 138 Potassium 4.8 Chloride 105 Carbon Dioxide 27 Anion Gap 11 L BUN 36 H Creatinine 1.88 H Estim Creat Clear Calc 38.8 Estimated GFR 26 POC Glucose 242 H 255 H Random Glucose 280 H Calcium 8.1 L Microbiology Microbiology Results: Microbiology 01/12/21 09:39 Blood - Venous Blood Culture - Preliminary No growth after 48 hours. 01/12/21 00:00 Urine Catheterized - Straight Catheter Urine Culture - Preliminary Strep agalactiae (Grp B) Gram negative pineda 01/12/21 09:25 Blood - Venous Blood Culture - Preliminary Prelim: GPC Gram Stain only Procedures Date of Service Date of Service: 01/14/21 Assessment & Plan Assessment and plan (1) CKD (chronic kidney disease) stage 4, GFR 15-29 ml/min: Start date: 01/14/21 Start time: 16:04 Status: Acute Assessment and Plan: 1. CKD 4: Scr 1.9 at bsl;suspect DN/HTN renal dis 2. CAD: w/u by card and will likely needCCath at some point 3.DM 4. HTN REC: urine and sero ordered to r/o non-DM causes of CKD; avoid NToxins; if goes for CCath will need pre/post IVF to decr risk CINDA Time Spent With Patient Time: Total time spent is greater than 50% in coordination of care (as documented) at patient's floor/unit and/or counseling patient: Progress Note: Quality Stroke Does the patient have a stroke diagnosis?: No
[2021-01-14 16:17] LABS: Glucose, Whole Blood 221 mg/dL (60-115)
[2021-01-14 19:23] LABS: Creatinine Urine 66.53 mg/dL; Total Protein Urine Random 125 mg/dL (<12)
[2021-01-14 20:23] LABS: Glucose, Whole Blood 231 mg/dL (60-115)
[2021-01-14] MEDS: Atorvastatin Calcium 80 MG TABLET PO (20:36)
[2021-01-15] VITALS (10 sets, daily range): BP systolic 137–183; BP diastolic 52–80; PULSE 71–85; RESP 18; TEMP 36.3–37.3; O2SAT 91–95; BMI 48.2
--- NOTE | 2021-01-15 | CA_ITS ---
Acquisition Time: 2021-01-15 10:12:41 Total Exercise Time: 00:02:00 Test Indications: NSTEMI Medications: Protocol: LEXISCAN Max HR: 080 BPM 53% of Pred: 149 BPM Max BP: 134/068 mmHG Max Work Load: 1.0 METS Pharmacological stress test with lexiscan while laying supine and moving right arm, without anginal symptoms, without arrythmia, with normotensive response to injection, with nondiagnostic EKG for ischemia. In recovery she reported dizziness and abdomenal cramping that was treated with Aminophylline 75mg IVP with resolution of symptoms. Nuclear images pending. Test reviewed with Dr Severino. Referred By: Eliceo Severino Overread By: FABIOLA DUMAS
[2021-01-15] MEDS: Omeprazole 20 MG CAPSULE.DR PO (05:50)
[2021-01-15] MEDS: Piperacillin Sodium/Tazobactam 2.25 GM in 0.9 % Sodium Chloride 50 ML IV ×2 (05:50→12:16)
[2021-01-15 07:31] LABS: PTT Heparin Drip 55.7 SEC (53-77.9)
[2021-01-15 07:43] LABS: Glucose, Whole Blood 203 mg/dL (60-115)
--- NOTE | 2021-01-15 07:55 | P.CDIC_ITS ---
CDI Concurrent Query Documentation Clarification: PHYSICIAN'S DOCUMENTATION REQUEST Date of Query: 01/15/21 0755 Patient Name: Caty Akers Admit Date: 01/12/21 Dear Doctor, A review of the medical record indicates additional documentation may be needed. Please review below and update the documentation accordingly. Clinical Indicators: Height: [] Weight: [] BMI: [] Other Clinical Notes Supporting Significance of the BMI: Risk Factors/Clinical Indicators/Treatments HT 5'6 WT 135.5 kg BMI If possible, please provide an associated diagnosis related to the abnormal BMI, such as: For a BMI >= 40: * Overweight * Obesity * Due to excess calories * Drug induced * Due to other cause * Severe or Morbid Obesity * With alveolar hypoventilation * Without alveolar hypoventilation Or: * BMI is not significant * Other (please specify) * Unable to determine Use of terms such as suspected, likely, concern for, or probable (associated with a specific diagnosis that is being evaluated, monitored, or treated as if it exists) are acceptable and can be coded in the inpatient setting, when documented at the time of discharge. Thank you, Rosa Smith RN Extension: [phone] Please use your independent medical judgment in providing your response. THIS QUERY IS PART OF THE PERMANENT MEDICAL RECORD Provider Response: Morbid Obesity
[2021-01-15] MEDS: amLODIPine Besylate 5 MG TABLET PO ×2 (08:06→15:50)
[2021-01-15] MEDS: Aspirin Enteric Coated 81 MG TABLET.DR PO (08:06)
[2021-01-15] MEDS: Insulin Lispro 100 UNIT/ML 3 ML VIAL SUBCUT ×4 (08:07→21:40)
[2021-01-15] MEDS: Clopidogrel Bisulfate 75 MG TABLET PO (08:07)
[2021-01-15] MEDS: Gabapentin 600 MG TABLET PO ×3 (08:07→21:39)
[2021-01-15] MEDS: Insulin Glargine,Hum.rec.anlog 100 UNIT/ML 10 ML VIAL 20 UNIT SUBCUT (08:07)
[2021-01-15] MEDS: Metoprolol Tartrate 50 MG TABLET PO ×2 (08:07→21:39)
[2021-01-15] MEDS: 0.9 % Sodium Chloride Flush 3 ML SYRINGE IVFLUSH ×3 (08:08→21:40)
[2021-01-15] MEDS: Nitroglycerin 2 % Oint 1 GM Packet 1 INCH TRANSDERMA ×3 (08:08→21:40)
[2021-01-15] MEDS: Acetaminophen 325 MG TABLET 650 MG PO ×2 (08:15→21:39)
[2021-01-15 12:04] LABS: Glucose, Whole Blood 288 mg/dL (60-115)
--- NOTE | 2021-01-15 13:59 | PC.NURSE ---
Slin/Wound assessment completed. Patient has cellulitis to left left and an unstageable pressure ulcer to left stump. Triad applied to ulcer bed and covered with foam dressing. Thick dry skin on right toes and dry peeling skin on bilateral thighs. No other skin issues noted at this time.
--- NOTE | 2021-01-15 15:02 | HO.PM.IMPN ---
Subjective Subjective Date of Service: 01/15/21 Interval History: Seen in f/u for NSTEMI, feels better, no chest pain or sob Review of Systems no sob no chest pain no fever Physical Exam Vital Signs: Vital Signs: Last Vital Signs Temp 97.4 F 01/15/21 12:00 Pulse 78 01/15/21 12:00 Resp 18 01/15/21 12:00 BP 170/80 H 01/15/21 12:00 Pulse Ox 95 01/15/21 12:00 Body Mass Index 48.2 General: AO X 3, no acute distress Resp:? CTA bilateral CVS: S1,S2,RRR GI: +BS, NT, no distention Skin: No rash Neuro:? motor grossly intact Psych: appropriate affect Objective Data Active Medications Acetaminophen (Acetaminophen 325 Mg Tablet) 650 mg PO Q6H PRN PRN Reason: headaches Last Admin: 01/15/21 08:15 Dose: 650 mg Documented by: TONY Amlodipine Besylate (Amlodipine Besylate 5 Mg Tablet) 5 mg PO DAILY [facility]; Protocol Last Admin: 01/15/21 08:06 Dose: 5 mg Documented by: TONY Aspirin (Aspirin Enteric Coated 81 Mg Tablet.) 81 mg PO DAILY [facility] Last Admin: 01/15/21 08:06 Dose: 81 mg Documented by: TONY Atorvastatin Calcium (Atorvastatin Calcium 80 Mg Tablet) 80 mg PO BEDTIME [facility] Last Admin: 01/14/21 20:36 Dose: 80 mg Documented by: JEFFREY Clopidogrel Bisulfate (Clopidogrel Bisulfate 75 Mg Tablet) 75 mg PO DAILY [facility] Last Admin: 01/15/21 08:07 Dose: 75 mg Documented by: TONY Dextrose (Dextrose 50 % 25 Gm/50 Ml Vial) 25 gm IVPUSH Q15M PRN; Protocol PRN Reason: per Hypoglycemia Standing Ord. Gabapentin (Gabapentin 600 Mg Tablet) 600 mg PO TID [facility] Last Admin: 01/15/21 08:07 Dose: 600 mg Documented by: TONY Glucose (Glucose Gel 15 Gm Gel..Gram.) 15 gm PO Q15M PRN; Protocol PRN Reason: per Hypoglycemia Standing Ord. Insulin Glargine (Insulin Glargine,Hum.Rec.Anlog 100 Unit/Ml 10 Ml Vial) 20 unit SUBCUT DAILY [facility] Last Admin: 01/15/21 08:07 Dose: 20 unit Documented by: TONY Insulin Human Lispro (Insulin Lispro 100 Unit/Ml 3 Ml Vial) 0 unit SUBCUT QIDACHS [facility]; Protocol Last Admin: 01/15/21 12:17 Dose: 6 unit Documented by: TONY Magnesium Hydroxide (Milk Of Magnesia 30 Ml Oral.Susp) 30 ml PO DAILY PRN PRN Reason: Constipation Metoprolol Tartrate (Metoprolol Tartrate 50 Mg Tablet) 50 mg PO BID [facility]; Protocol Last Admin: 01/15/21 08:07 Dose: 50 mg Documented by: TONY Nitroglycerin (Nitroglycerin 2 % Oint 1 Gm Packet) 1 inch TRANSDERMA RQ6H WHILE AWAKE [facility] Last Admin: 01/15/21 08:08 Dose: 1 inch Documented by: TONY Omeprazole (Omeprazole 20 Mg Capsule.Dr) 20 mg PO DAILY@0630 [facility] Last Admin: 01/15/21 05:50 Dose: 20 mg Documented by: JEFFREY Pharmacy Consult (Consult Rx Vancomycin Dosing) 1 each MISCELLANE DAILY PRN PRN Reason: Consult order Polyethylene Glycol (Polyethylene Glycol 3350 17 Gm Powd.Pack) 17 gm PO DAILY PRN PRN Reason: Constipation Last Admin: 01/14/21 15:49 Dose: 17 gm Documented by: ELIUD Sodium Chloride (0.9 % Sodium Chloride Flush 3 Ml Syringe) 3 ml IVFLUSH QSHIFT [facility] Last Admin: 01/15/21 08:08 Dose: 3 ml Documented by: TONY Labs CBC & Chem 7: 01/14/21 06:07 01/14/21 06:07 Labs: Laboratory Results - last 24 hr 01/14/21 01/14/21 01/14/21 16:11 18:17 20:19 PTT (Heparin Protocol) POC Glucose 221 H 231 H U Random Total Protein 125 H Urine Creatinine 66.53 01/15/21 01/15/21 01/15/21 06:36 07:36 12:01 PTT (Heparin Protocol) 55.7 POC Glucose 203 H 288 H U Random Total Protein Urine Creatinine Microbiology Microbiology Results: Microbiology 01/12/21 09:25 Blood Culture - Final Blood - Venous Coag negative Staphylococcus 01/12/21 00:00 Urine Culture - Final Urine Catheterized - Straight Catheter Strep agalactiae (Grp B) Escherichia coli 01/12/21 09:39 Blood Culture - Preliminary Blood - Venous No growth after 48 hours. Assessment and Plan (1) NSTEMI (non-ST elevated myocardial infarction): Status: Acute (2) Sepsis: Status: Acute (3) Acute hyperglycemia: Status: Acute Assessment and Plan: 69-year-old female who came to the hospital because of chest pain, uncontrolled hypertension, uncontrolled diabetes, NSTEMI. 1. Sepsis/cellulitis of leg, clinically looks better and looks mostly chronic. Stop Zosyn today, oral Augmentin for 5 days 2. NSTEMI:hx of cads/p stent Troponins are significantly elevated in [id number] -6k-9k. has completed heparin drip continue Plavix, bb, statin stress today 3. Uncontrolled hypertension: continue Metoprolol, increase norvasc to 10 4. Diabetes, continue Lantus and SSI, monitor sugars 5. Right leg x-ray shows fracture of distal tibia and fibula ? ,talus laterally displaced-moves right and left extermity fine , no pain, chronic changes from injury 3 years ago. Outpatient f/u 6. UTI--culture e.coli and group b strep, augmentin for 5 days 7. ckd 3 stable. her brother -Mr Rojas no is [phone]( home ), ). Quality Stroke Does the patient have a stroke diagnosis?: No VTE Prior VTE?: No VTE Risk Level:: Medical - moderate - high VTE Device Contraindication: N/A - Device Ordered VTE Drug Contraindication: N/A - Med Ordered
--- NOTE | 2021-01-15 15:31 | MHC.CLN ---
Addendum entered by Yadira Andersen, [place] 01/15/21 15:33: AGREE WITH PROVIDER'S ASSESSMENT BELOW SEE ALSO CLINICAL NUTRITION ASSESSMENT Original Note: RE: CONSULT PT IS AT INCREASED NUTRITION RISK R/T UNSTAGEABLE PRESSURE INJURY DIET RX: 1500 DM, 2 GM NA-RECOMMEND INCREASING DM DIET TO 1800 KCALS PO INTAKE DOCUMENTED 100% X 1 MEAL 50% X 2 MEALS RECOMMEND GLUCERNA BID TO INCREASE PROTEIN INTAKE MONITOR PO INTAKE AND SUPPLEMENT ACCEPTANCE
[2021-01-15 16:30] LABS: Glucose, Whole Blood 278 mg/dL (60-115)
--- NOTE | 2021-01-15 16:33 | P.PNCA_ITS ---
Subjective Subjective Date of Service: 01/15/21 <DANIELLA Qureshi - Last Filed: 01/15/21 16:45> 01/15/21 <Eliceo Severino MD - Last Filed: 01/15/21 17:00> Principal diagnosis: NSTEMI <DANIELLA Qureshi - Last Filed: 01/15/21 16:45> Interval history: Cardiology follow up for NSTEMI. Seen at 0930. Today she states she has not been getting chest or arm discomfort since admit. Breathing is comfortable. No palpitations, dizziness, presyncope, PND, orthopnea or edema. Having diarrhea this am, which she states is unusual for her. Slept well last night. <DANIELLA Qureshi - Last Filed: 01/15/21 16:45> Review of Systems Review of Systems as above <DANIELLA Qureshi - Last Filed: 01/15/21 16:45> Yes all other systems are reviewed and are negative <DANIELLA Qureshi - Last Filed: 01/15/21 16:45> Physical Exam Vital Signs: Last Vital Signs Temp 98.8 F 01/15/21 15:16 Pulse 77 01/15/21 15:50 Resp 18 01/15/21 15:16 BP 183/60 H 01/15/21 15:50 Pulse Ox 92 01/15/21 15:16 Body Mass Index 48.2 <DANIELLA Qureshi - Last Filed: 01/15/21 16:45> Const General: cooperative, no acute distress, alert and awake <DANIELLA Qureshi - Last Filed: 01/15/21 16:45> Orientation/consciousness: patient oriented x3 <DANIELLA Qureshi - Last Filed: 01/15/21 16:45> Neck Neck: Yes normal visual inspection and Yes no JVD <DANIELLA Qureshi Last Filed: 01/15/21 16:45> Resp Effort & Inspection: normal respiratory effort, able to speak in complete sentences and not labored <DANIELLA Qureshi - Last Filed: 01/15/21 16:45> Auscultation: clear to auscultation bilaterally, no rales, no rhonchi and no wheezes <BILLIE QureshiC - Last Filed: 01/15/21 16:45> Cardio Palpation: normal PMI <BILLIE Qureshi - Last Filed: 01/15/21 16:45> Rate: regular rate <Kristen BILLIE Joyce - Last Filed: 01/15/21 16:45> Rhythm: regular rhythm <Kristen BILLIE Joyce - Last Filed: 01/15/21 16:45> Heart sounds: S1 normal heart sound present and S2 normal heart sound present <Kristen CIERRA JoyceC - Last Filed: 01/15/21 16:45> Peripheral pulses: Peripheral pulses 2+ throughout <Kristen Joyce NP - Last Filed: 01/15/21 16:45> GI Inspection: Yes normal to inspection <Kristen BILLIE Joyce - Last Filed: 01/15/21 16:45> Neuro General: patient oriented x3 <BILLIE Qureshi - Last Filed: 01/15/21 16:45> Extrem General: Yes normal to inspection and No edema <Kristen CIERRA Joyce-C - Last Filed: 01/15/21 16:45> Results Labs and Meds Result diagrams: : 01/14/21 06:07 01/14/21 06:07 <BILLIE Qureshi - Last Filed: 01/15/21 16:45> Lab results: Laboratory Results - last 24 hr 01/14/21 01/14/21 01/15/21 18:17 20:19 06:36 PTT (Heparin Protocol) 55.7 POC Glucose 231 H U Random Total Protein 125 H Urine Creatinine 66.53 01/15/21 01/15/21 01/15/21 07:36 12:01 16:23 PTT (Heparin Protocol) POC Glucose 203 H 288 H 278 H U Random Total Protein Urine Creatinine <Kristen CIERRA Joyce-C - Last Filed: 01/15/21 16:45> Imaging Radiologist's impression: Impressions Myocardial Perfusion Scan Nuc Med 01/13/21 11:28 Impression: 1. Myocardial perfusion imaging study shows septal and apical ischemia in mid to distal LAD territory 2. Gated LVEF is 59% with stress and 66% with stress 3. Transient ischemic dilatation present EKG is nondiagnostic for ischemia <DANIELLA Qureshi - Last Filed: 01/15/21 16:45> Progress Note: A&P Assessment and plan (1) NSTEMI (non-ST elevated myocardial infarction): Status: Acute <DANIELLA Qureshi - Last Filed: 01/15/21 16:45> Assessment and Plan: Admit with weakness, falls, intermittent left arm discomfort. Ruled in for NSTEMI with Trop up to 9084. Echo shows normal EF with mod LVH, WMA in LAD distribution, no valve abn. Nuclear stress test completed today, result available prior to completion of ths note: Septal and apical ischemia in the mid to distal LAD territory. She has known hx of CAD with YAZMIN to prox D2 and Mid RCA also TECHNICAL SOLUTION ARCHITECT of mid LAD. The area of ischemia is in the area of her LAD TECHNICAL SOLUTION ARCHITECT. This will be managed medically as she is not reporting angina/ left arm discomfort at this time. Continue Heparin drip 48hrs, then can d/c. Continue aspirin indefinitely. Continue plavix, Metoprolol, Amlodipine, NTP. Continue high dose statin. We will follow. <DANIELLA Qureshi - Last Filed: 01/15/21 16:45> Admit with weakness, falls, intermittent left arm discomfort. Ruled in for NSTEMI with Trop up to 9084. Echo shows normal EF with mod LVH, WMA in LAD distribution, no valve abn. Nuclear stress test completed today, result available prior to completion of ths note: Septal and apical ischemia in the mid to distal LAD territory. She has known hx of CAD with YAZMIN to prox D2 and Mid RCA also TECHNICAL SOLUTION ARCHITECT of mid LAD. The area of ischemia is in the area of her LAD TECHNICAL SOLUTION ARCHITECT. This will be managed medically as she is not reporting angina/ left arm discomfort at this time. Continue Heparin drip 48hrs, then can d/c. Continue aspirin indefinitely. Continue plavix, Metoprolol, Amlodipine, NTP. Continue high dose statin. We will follow. Patient seen and examined. Case discussed with Kristen Joyce. Patient remained symptom-free with her left arm discomfort at current time on current medical therapy. Myocardial perfusion imaging shows ischemia in the mid to distal LAD territory is expected. Continue dual antiplatelet therapy with aspirin and Plavix as well as continue dual antianginal therapy with amlodipine and metoprolol. Blood pressure is well optimized. Continue high-intensity statin therapy. Given her multiple comorbidities including advanced renal dysfunction will continue to pursue conservative medical management as patient has recurrent anginal sounding discomfort. Will sign of the case. Will follow up as outpatient. Follow-up with Dr. Harris in 2 weeks time <Eliceo Severino MD - Last Filed: 01/15/21 17:00> (2) CAD (coronary artery disease): Status: Acute <DANIELLA Qureshi - Last Filed: 01/15/21 16:45> (3) HTN (hypertension): Status: Acute <DANIELLA Qureshi - Last Filed: 01/15/21 16:45> Assessment and Plan: BP elevated today - most recent 183/60. She continues on Metoprolol, NTP. Hospitalist just increased Amlodipine up to 10mg daily. Ongoing BP monitoring. <DANIELLA Qureshi - Last Filed: 01/15/21 16:45> Fall Risk Details Current Medications: Current Medications Acetaminophen (Acetaminophen 325 Mg Tablet) 650 mg PO Q6H PRN PRN Reason: headaches Last Admin: 01/15/21 08:15 Dose: 650 mg Documented by: Amlodipine Besylate (Amlodipine Besylate 10 Mg Tablet) 10 mg PO DAILY [facility]; Protocol Amoxicillin/Clavulanate Potassium (Amoxicillin/Potassium Clav 875 Mg Tablet) 875 mg PO Q12H JILLIAN Aspirin (Aspirin Enteric Coated 81 Mg Tablet.) 81 mg PO DAILY [facility] Last Admin: 01/15/21 08:06 Dose: 81 mg Documented by: Atorvastatin Calcium (Atorvastatin Calcium 80 Mg Tablet) 80 mg PO BEDTIME JILLIAN Last Admin: 01/14/21 20:36 Dose: 80 mg Documented by: Clopidogrel Bisulfate (Clopidogrel Bisulfate 75 Mg Tablet) 75 mg PO DAILY [facility] Last Admin: 01/15/21 08:07 Dose: 75 mg Documented by: Dextrose (Dextrose 50 % 25 Gm/50 Ml Vial) 25 gm IVPUSH Q15M PRN; Protocol PRN Reason: per Hypoglycemia Standing Ord. Gabapentin (Gabapentin 600 Mg Tablet) 600 mg PO TID [facility] Last Admin: 01/15/21 15:50 Dose: 600 mg Documented by: Glucose (Glucose Gel 15 Gm Gel..Gram.) 15 gm PO Q15M PRN; Protocol PRN Reason: per Hypoglycemia Standing Ord. Insulin Glargine (Insulin Glargine,Hum.Rec.Anlog 100 Unit/Ml 10 Ml Vial) 20 unit SUBCUT DAILY [facility] Last Admin: 01/15/21 08:07 Dose: 20 unit Documented by: Insulin Human Lispro (Insulin Lispro 100 Unit/Ml 3 Ml Vial) 0 unit SUBCUT QIDACHS [facility]; Protocol Last Admin: 01/15/21 12:17 Dose: 6 unit Documented by: Magnesium Hydroxide (Milk Of Magnesia 30 Ml Oral.Susp) 30 ml PO DAILY PRN PRN Reason: Constipation Metoprolol Tartrate (Metoprolol Tartrate 50 Mg Tablet) 50 mg PO BID [facility]; Protocol Last Admin: 01/15/21 08:07 Dose: 50 mg Documented by: Nitroglycerin (Nitroglycerin 2 % Oint 1 Gm Packet) 1 inch TRANSDERMA RQ6H WHILE AWAKE [facility] Last Admin: 01/15/21 15:51 Dose: 1 inch Documented by: Omeprazole (Omeprazole 20 Mg Capsule.Dr) 20 mg PO DAILY@0630 [facility] Last Admin: 01/15/21 05:50 Dose: 20 mg Documented by: Pharmacy Consult (Consult Rx Vancomycin Dosing) 1 each MISCELLANE DAILY PRN PRN Reason: Consult order Polyethylene Glycol (Polyethylene Glycol 3350 17 Gm Powd.Pack) 17 gm PO DAILY PRN PRN Reason: Constipation Last Admin: 01/14/21 15:49 Dose: 17 gm Documented by: Sodium Chloride (0.9 % Sodium Chloride Flush 3 Ml Syringe) 3 ml IVFLUSH QSHIFT [facility] Last Admin: 01/15/21 15:51 Dose: 3 ml Documented by: <DANIELLA Qureshi - Last Filed: 01/15/21 16:45> Time Spent With Patient Time: Total time spent is greater than 50% in coordination of care (as documented) at patient's floor/unit and/or counseling patient: <DANIELLA Qureshi - Last Filed: 01/15/21 16:45> Time with patient: 15 - 24 minutes <DANIELLA Qureshi - Last Filed: 01/15/21 16:45> Progress Note: Quality Stroke Does the patient have a stroke diagnosis?: No <DANIELLA Qureshi - Last Filed: 01/15/21 16:45> Procedures Date of Service Date of Service: 01/15/21 <DANIELLA Qureshi - Last Filed: 01/15/21 16:45>
[2021-01-15 20:20] LABS: Glucose, Whole Blood 318 mg/dL (60-115)
[2021-01-15] MEDS: Amoxicillin/Potassium Clav 875 MG TABLET PO (21:38)
[2021-01-15] MEDS: Atorvastatin Calcium 80 MG TABLET PO (21:40)
[2021-01-16] VITALS (12 sets, daily range): BP systolic 129–190; BP diastolic 48–70; PULSE 70–89; RESP 18–19; TEMP 36.2–37.7; O2SAT 92–97
[2021-01-16] MEDS: Omeprazole 20 MG CAPSULE.DR PO (06:30)
[2021-01-16 07:51] LABS: Glucose, Whole Blood 252 mg/dL (60-115)
[2021-01-16] MEDS: Insulin Glargine,Hum.rec.anlog 100 UNIT/ML 10 ML VIAL 20 UNIT SUBCUT (08:24)
[2021-01-16] MEDS: Insulin Lispro 100 UNIT/ML 3 ML VIAL SUBCUT ×4 (08:24→21:21)
[2021-01-16] MEDS: Heparin Sodium,Porcine 5,000 UNIT/ML VIAL 5000 UNIT SUBCUT ×2 (08:25→21:22)
[2021-01-16] MEDS: Gabapentin 600 MG TABLET PO ×3 (08:25→21:24)
[2021-01-16] MEDS: amLODIPine Besylate 10 MG TABLET PO (08:25)
[2021-01-16] MEDS: Metoprolol Tartrate 50 MG TABLET PO ×2 (08:25→21:25)
[2021-01-16] MEDS: Aspirin Enteric Coated 81 MG TABLET.DR PO (08:26)
[2021-01-16] MEDS: Clopidogrel Bisulfate 75 MG TABLET PO (08:26)
[2021-01-16] MEDS: Amoxicillin/Potassium Clav 875 MG TABLET PO ×2 (08:26→21:24)
[2021-01-16] MEDS: Nitroglycerin 2 % Oint 1 GM Packet 1 INCH TRANSDERMA (08:27)
[2021-01-16] MEDS: 0.9 % Sodium Chloride Flush 3 ML SYRINGE IVFLUSH ×3 (08:27→21:20)
[2021-01-16 09:27] LABS: Anion Gap 14 (12-20); Blood Urea Nitrogen 30 mg/dL (9-16); Calcium 7.9 mg/dL (8.4-10.2); Carbon Dioxide 24 mmol/L (22-29); Chloride 106 mmol/L (96-108); Creatinine Clr Calc Pharmacy 41.3; Estimated Glomerular Filt Rate 28; Glucose Random 271 mg/dL (60-115); Potassium 4.6 mmol/L (3.3-5.1); Sodium 139 mmol/L (135-145)
[2021-01-16 10:58] LABS: Glucose, Whole Blood 286 mg/dL (60-115)
[2021-01-16] MEDS: Acetaminophen 325 MG TABLET 650 MG PO ×2 (11:23→18:41)
--- NOTE | 2021-01-16 11:51 | PM.PNCARD ---
Subjective Subjective Date of Service: 01/16/21 <DANIELLA Qureshi - Last Filed: 01/16/21 11:57> 01/16/21 <Eliceo Severino MD - Last Filed: 01/16/21 16:32> Principal diagnosis: NSTEMI <DANIELLA Qureshi - Last Filed: 01/16/21 11:57> Interval history: cardiology follow up for NSTEMI. Seen at 0815. Today she reports feeling well. No recurrent chest or left arm discomfort. No sob, palpitation, dizziness, PND, orthopnea or edema. Has generalized body aches. Slept with HOB down. <DANIELLA Qureshi - Last Filed: 01/16/21 11:57> Review of Systems Review of Systems as above <DANIELLA Qureshi - Last Filed: 01/16/21 11:57> Yes all other systems are reviewed and are negative <DANIELLA Qureshi - Last Filed: 01/16/21 11:57> Physical Exam Vital Signs: Last Vital Signs Temp 99.8 F 01/16/21 11:09 Pulse 70 01/16/21 11:09 Resp 18 01/16/21 11:09 BP 152/60 H 01/16/21 11:09 Pulse Ox 92 01/16/21 11:21 Body Mass Index 48.2 <DANIELLA Qureshi - Last Filed: 01/16/21 11:57> Const General: cooperative, no acute distress, alert and awake <DANIELLA Qureshi - Last Filed: 01/16/21 11:57> Orientation/consciousness: patient oriented x3 <DANIELLA Qureshi - Last Filed: 01/16/21 11:57> Neck Neck: Yes normal visual inspection and Yes no JVD <DANIELLA Qureshi Last Filed: 01/16/21 11:57> Resp Effort & Inspection: normal respiratory effort, able to speak in complete sentences and not labored <DANIELLA Qureshi - Last Filed: 01/16/21 11:57> Auscultation: clear to auscultation bilaterally, no crackles, no rales, no rhonchi and no wheezes <KristenBILLIE HuddlestonC - Last Filed: 01/16/21 11:57> Cardio Palpation: normal PMI <BILLIE QureshiC - Last Filed: 01/16/21 11:57> Rate: regular rate <Kristen M BILLIE JoyceC - Last Filed: 01/16/21 11:57> Rhythm: regular rhythm <[facility] DANIELLA Joyce - Last Filed: 01/16/21 11:57> Heart sounds: S1 normal heart sound present and S2 normal heart sound present <[facility] BILLIE JoyceC - Last Filed: 01/16/21 11:57> Peripheral pulses: Peripheral pulses 2+ throughout <Kristen M BILLIE Joyce - Last Filed: 01/16/21 11:57> GI Inspection: Yes normal to inspection <[facility] DANIELLA Joyce - Last Filed: 01/16/21 11:57> Neuro General: patient oriented x3 <[facility] DANIELLA Joyce - Last Filed: 01/16/21 11:57> Extrem General: Yes normal to inspection and No edema <[facility] BILLIE JoyceC - Last Filed: 01/16/21 11:57> Results Labs and Meds Result diagrams: : 01/14/21 06:07 01/16/21 08:02 <BILLIE QureshiC - Last Filed: 01/16/21 11:57> Lab results: Laboratory Results - last 24 hr 01/15/21 01/15/21 01/15/21 12:01 16:23 20:15 Sodium Potassium Chloride Carbon Dioxide Anion Gap BUN Creatinine Estim Creat Clear Calc Estimated GFR POC Glucose 288 H 278 H 318 H Random Glucose Calcium 01/16/21 01/16/21 01/16/21 07:46 08:02 10:54 Sodium 139 Potassium 4.6 Chloride 106 Carbon Dioxide 24 Anion Gap 14 BUN 30 H Creatinine 1.77 H Estim Creat Clear Calc 41.3 Estimated GFR 28 POC Glucose 252 H 286 H Random Glucose 271 H Calcium 7.9 L <Kristen CIERRA Joyce-C - Last Filed: 01/16/21 11:57> Imaging Radiologist's impression: Impressions Myocardial Perfusion Scan Nuc Med 01/13/21 11:28 Impression: 1. Myocardial perfusion imaging study shows septal and apical ischemia in mid to distal LAD territory 2. Gated LVEF is 59% with stress and 66% with stress 3. Transient ischemic dilatation present EKG is nondiagnostic for ischemia <Kristen Clifton DANIELLA Joyce - Last Filed: 01/16/21 11:57> Progress Note: A&P Assessment and plan (1) NSTEMI (non-ST elevated myocardial infarction): Status: Acute <KristenDANIELLA Huddleston - Last Filed: 01/16/21 11:57> Assessment and Plan: Admit with weakness, falls, intermittent left arm discomfort. Ruled in for NSTEMI with Trop up to 9084. Echo shows normal EF with mod LVH, WMA in LAD distribution, no valve abn. Nuclear stress test shows Septal and apical ischemia in the mid to distal LAD territory.? She has known hx of CAD with YAZMIN to prox D2 and Mid RCA also VACCINE MANAGER of mid LAD. The area of ischemia is in the area of her LAD VACCINE MANAGER. This will? be managed medically as she is not reporting angina/ left arm discomfort at this time. Reviewed results with pt. No recurrent left arm discomfort since admit. She completed Heparin drip for 48hrs. Will manage CAD medically - unless she has issues with recurrent angina/ left arm discomfort. Continue aspirin indefinitely. Continue plavix, Metoprolol, Amlodipine. Will change NTP to Imdur 60mg daily. Continue high dose statin. Can be discharged from cardiology perpsective. We will arrange for outpt cardiology follow up. <Kristen Clifton DANIELLA Joyce - Last Filed: 01/16/21 11:57> Admit with weakness, falls, intermittent left arm discomfort. Ruled in for NSTEMI with Trop up to 9084. Echo shows normal EF with mod LVH, WMA in LAD distribution, no valve abn. Nuclear stress test shows Septal and apical ischemia in the mid to distal LAD territory.? She has known hx of CAD with YAZMIN to prox D2 and Mid RCA also VACCINE MANAGER of mid LAD. The area of ischemia is in the area of her LAD VACCINE MANAGER. This will? be managed medically as she is not reporting angina/ left arm discomfort at this time. Reviewed results with pt. No recurrent left arm discomfort since admit. She completed Heparin drip for 48hrs. Will manage CAD medically - unless she has issues with recurrent angina/ left arm discomfort. Continue aspirin indefinitely. Continue plavix, Metoprolol, Amlodipine. Will change NTP to Imdur 60mg daily. Continue high dose statin. Can be discharged from cardiology perpsective. We will arrange for outpt cardiology follow up. Patient seen and examined. Case discussed with Kristen Joyce. Patient has no cardiac symptoms at current time. Continue current medical management with dual antiplatelet therapy and antianginal therapy at this point time. Continue high-intensity statin therapy. Most likely cause for non-STEMI appears to be systemic in setting of known LAD VACCINE MANAGER. Patient is agreeable with conservative management plan at this point time. Will follow up as outpatient. If she has recurrent anginal sounding left arm discomfort will pursue invasive therapy. She is agreeable with this plan. Patient may be discharged from cardiac perspective. <Eliceo Severino MD - Last Filed: 01/16/21 16:32> (2) CAD (coronary artery disease): Status: Acute <DANIELLA Qureshi - Last Filed: 01/16/21 11:57> (3) HTN (hypertension): Status: Acute <DANIELLA Qureshi - Last Filed: 01/16/21 11:57> Assessment and Plan: BP better controlled today, this am 132/58. Meds as above. Not on garland/ arb due to CKD <DANIELLA Qureshi - Last Filed: 01/16/21 11:57> Fall Risk Details Current Medications: Current Medications Acetaminophen (Acetaminophen 325 Mg Tablet) 650 mg PO Q6H PRN PRN Reason: headaches Last Admin: 01/16/21 11:23 Dose: 650 mg Documented by: Amlodipine Besylate (Amlodipine Besylate 10 Mg Tablet) 10 mg PO DAILY [facility]; Protocol Last Admin: 01/16/21 08:25 Dose: 10 mg Documented by: Amoxicillin/Clavulanate Potassium (Amoxicillin/Potassium Clav 875 Mg Tablet) 875 mg PO Q12H JILLIAN Last Admin: 01/16/21 08:26 Dose: 875 mg Documented by: Aspirin (Aspirin Enteric Coated 81 Mg Tablet.) 81 mg PO DAILY [facility] Last Admin: 01/16/21 08:26 Dose: 81 mg Documented by: Atorvastatin Calcium (Atorvastatin Calcium 80 Mg Tablet) 80 mg PO BEDTIME [facility] Last Admin: 01/15/21 21:40 Dose: 80 mg Documented by: Clopidogrel Bisulfate (Clopidogrel Bisulfate 75 Mg Tablet) 75 mg PO DAILY [facility] Last Admin: 01/16/21 08:26 Dose: 75 mg Documented by: Dextrose (Dextrose 50 % 25 Gm/50 Ml Vial) 25 gm IVPUSH Q15M PRN; Protocol PRN Reason: per Hypoglycemia Standing Ord. Gabapentin (Gabapentin 600 Mg Tablet) 600 mg PO TID [facility] Last Admin: 01/16/21 08:25 Dose: 600 mg Documented by: Glucose (Glucose Gel 15 Gm Gel..Gram.) 15 gm PO Q15M PRN; Protocol PRN Reason: per Hypoglycemia Standing Ord. Heparin Sodium (Porcine) (Heparin Sodium,Porcine 5,000 Unit/Ml Vial) 5,000 unit SUBCUT Q12H [facility] Last Admin: 01/16/21 08:25 Dose: 5,000 unit Documented by: Insulin Glargine (Insulin Glargine,Hum.Rec.Anlog 100 Unit/Ml 10 Ml Vial) 20 unit SUBCUT DAILY [facility] Last Admin: 01/16/21 08:24 Dose: 20 unit Documented by: Insulin Human Lispro (Insulin Lispro 100 Unit/Ml 3 Ml Vial) 0 unit SUBCUT QIDACHS [facility]; Protocol Last Admin: 01/16/21 08:24 Dose: 6 unit Documented by: Magnesium Hydroxide (Milk Of Magnesia 30 Ml Oral.Susp) 30 ml PO DAILY PRN PRN Reason: Constipation Metoprolol Tartrate (Metoprolol Tartrate 50 Mg Tablet) 50 mg PO BID [facility]; Protocol Last Admin: 01/16/21 08:25 Dose: 50 mg Documented by: Nitroglycerin (Nitroglycerin 2 % Oint 1 Gm Packet) 1 inch TRANSDERMA RQ6H WHILE AWAKE [facility] Last Admin: 01/16/21 08:27 Dose: 1 inch Documented by: Omeprazole (Omeprazole 20 Mg Capsule.) 20 mg PO DAILY@0630 [facility] Last Admin: 01/16/21 06:30 Dose: 20 mg Documented by: Pharmacy Consult (Consult Rx Vancomycin Dosing) 1 each MISCELLANE DAILY PRN PRN Reason: Consult order Polyethylene Glycol (Polyethylene Glycol 3350 17 Gm Powd.Pack) 17 gm PO DAILY PRN PRN Reason: Constipation Last Admin: 01/14/21 15:49 Dose: 17 gm Documented by: Sodium Chloride (0.9 % Sodium Chloride Flush 3 Ml Syringe) 3 ml IVFLUSH QSHIFT JILLIAN Last Admin: 01/16/21 08:27 Dose: 3 ml Documented by: <DANIELLA Qureshi - Last Filed: 01/16/21 11:57> Time Spent With Patient Time: Total time spent is greater than 50% in coordination of care (as documented) at patient's floor/unit and/or counseling patient: <DANIELLA Qureshi - Last Filed: 01/16/21 11:57> Time with patient: 15 - 24 minutes <DANIELLA Qureshi Last Filed: 01/16/21 11:57> Progress Note: Quality Stroke Does the patient have a stroke diagnosis?: No <DANIELLA Qureshi Last Filed: 01/16/21 11:57> Procedures Date of Service Date of Service: 01/16/21 <DANIELLA Qureshi Last Filed: 01/16/21 11:57>
[2021-01-16 15:05] LABS: IgA 349 mg/dL (70-320); IgG 1483 mg/dL (600-1540); IgM 116 mg/dL (50-300)
[2021-01-16] MEDS: Isosorbide Mononitrate 60 MG TAB.ER.24H PO (15:35)
[2021-01-16 16:04] LABS: Glucose, Whole Blood 326 mg/dL (60-115)
[2021-01-16 16:42] LABS: Calcium (PTHI) 7.9 mg/dL (8.6-10.4); PTHI 134 pg/mL (14-64)
--- NOTE | 2021-01-16 18:35 | PM.PNNEP ---
Subjective Subjective Date of Service: 01/16/21 Principal diagnosis: IRINA on CKD Interval history: Seen and examied, events noted Physical Exam Vital Signs: Vital Signs: Last Vital Signs Temp 97.5 F 01/16/21 15:33 Pulse 76 01/16/21 15:35 Resp 19 01/16/21 15:33 BP 174/55 H 01/16/21 15:35 Pulse Ox 92 01/16/21 15:33 Body Mass Index 48.2 Const: General: No in distress Orientation/consciousness: patient oriented x3 Eyes: EOM: EOMs intact bilaterally Neck: Neck: Yes supple Resp: Auscultation: diminished lung sounds Cardio: Jugular venous distension: no JVD GI: Palpation (GI): Soft to palpation Neuro: General: patient oriented x3 Objective Data Labs CBC & Chem 7: 01/14/21 06:07 01/16/21 08:02 Labs: Laboratory Results - last 24 hr 01/15/21 01/15/21 01/15/21 06:36 06:36 20:15 Sodium Potassium Chloride Carbon Dioxide Anion Gap BUN Creatinine Estim Creat Clear Calc Estimated GFR POC Glucose 318 H Random Glucose Calcium PTH Intact 134 H Calcium (PTH Intact) 7.9 L IgG Total 1483 IgA Total 349 H IgM 116 GEMINI Interpretation 01/16/21 01/16/21 01/16/21 07:46 08:02 10:54 Sodium 139 Potassium 4.6 Chloride 106 Carbon Dioxide 24 Anion Gap 14 BUN 30 H Creatinine 1.77 H Estim Creat Clear Calc 41.3 Estimated GFR 28 POC Glucose 252 H 286 H Random Glucose 271 H Calcium 7.9 L PTH Intact Calcium (PTH Intact) IgG Total IgA Total IgM GEMINI Interpretation 01/16/21 15:54 Sodium Potassium Chloride Carbon Dioxide Anion Gap BUN Creatinine Estim Creat Clear Calc Estimated GFR POC Glucose 326 H Random Glucose Calcium PTH Intact Calcium (PTH Intact) IgG Total IgA Total IgM GEMINI Interpretation Microbiology Microbiology Results: Microbiology 01/12/21 09:25 Blood - Venous Blood Culture - Final Coag negative Staphylococcus 01/12/21 00:00 Urine Catheterized - Straight Catheter Urine Culture - Final Strep agalactiae (Grp B) Escherichia coli 01/12/21 09:39 Blood - Venous Blood Culture - Preliminary No growth after 48 hours. Procedures Date of Service Date of Service: 01/16/21 Assessment & Plan Assessment and plan (1) CKD (chronic kidney disease) stage 4, GFR 15-29 ml/min: Status: Acute Assessment and Plan: 1. CKD 4: Scr 1.9 at bsl;suspect DN/HTN renal dis 2. CAD: w/u by card and CCAth on hold and med Tx 3.DM 4. HTN: labile but remains suboptimal REC: add RASi ( I will add cozaar) now that CCath cancelled and track renal func; urine and sero ordered to r/o non-DM causes of CKD; avoid NToxins Time Spent With Patient Time: Total time spent is greater than 50% in coordination of care (as documented) at patient's floor/unit and/or counseling patient: Progress Note: Quality Stroke Does the patient have a stroke diagnosis?: No
[2021-01-16 20:26] LABS: Glucose, Whole Blood 371 mg/dL (60-115)
[2021-01-16] MEDS: Losartan Potassium 25 MG TABLET PO (21:25)
[2021-01-16] MEDS: Atorvastatin Calcium 80 MG TABLET PO (21:25)
[2021-01-17] VITALS (10 sets, daily range): BP systolic 124–164; BP diastolic 47–77; PULSE 65–76; RESP 18; TEMP 35.7–36.9; O2SAT 91–98
[2021-01-17] MEDS: Acetaminophen 325 MG TABLET 650 MG PO ×3 (00:56→17:43)
[2021-01-17] MEDS: Omeprazole 20 MG CAPSULE.DR PO (05:24)
[2021-01-17 06:41] LABS: Hematocrit 38.8 % (37-47); Hemoglobin 12.2 g/dl (12.0-16.0); Mean Corpuscular HGB Conc 31.4 g/dl (31.0-35.0); Mean Corpuscular Hemoglobin 29.7 pg (27.0-33.0); Mean Corpuscular Volume 94.4 fL (80-98); Mean Platelet Volume 11.2 fL (9.4-12.3); NRBC Pct Auto 0.2 /100WBC (0.0-0.2); Platelet Count 238 X10*3/uL (160-400); Red Blood Count 4.11 X10*6/uL (4.20-5.50); Red Cell Distribution Width 13.2 % (11.0-16.0); White Blood Count 8.8 X10*3/uL (4.8-10.8)
[2021-01-17 07:19] LABS: Glucose, Whole Blood 331 mg/dL (60-115)
[2021-01-17] MEDS: Heparin Sodium,Porcine 5,000 UNIT/ML VIAL 5000 UNIT SUBCUT ×2 (08:20→20:42)
[2021-01-17] MEDS: Insulin Glargine,Hum.rec.anlog 100 UNIT/ML 10 ML VIAL 20 UNIT SUBCUT (08:21)
[2021-01-17] MEDS: Insulin Lispro 100 UNIT/ML 3 ML VIAL SUBCUT ×4 (08:21→20:41)
[2021-01-17] MEDS: Clopidogrel Bisulfate 75 MG TABLET PO (08:22)
[2021-01-17] MEDS: Amoxicillin/Potassium Clav 875 MG TABLET PO (08:22)
[2021-01-17] MEDS: amLODIPine Besylate 10 MG TABLET PO (08:22)
[2021-01-17] MEDS: Isosorbide Mononitrate 60 MG TAB.ER.24H PO (08:23)
[2021-01-17] MEDS: Metoprolol Tartrate 50 MG TABLET PO ×2 (08:23→20:42)
[2021-01-17] MEDS: Gabapentin 600 MG TABLET PO ×3 (08:23→20:42)
[2021-01-17] MEDS: Losartan Potassium 25 MG TABLET PO (08:23)
[2021-01-17] MEDS: Aspirin Enteric Coated 81 MG TABLET.DR PO (08:23)
[2021-01-17] MEDS: 0.9 % Sodium Chloride Flush 3 ML SYRINGE IVFLUSH ×3 (08:24→20:48)
[2021-01-17 11:12] LABS: Glucose, Whole Blood 316 mg/dL (60-115)
--- NOTE | 2021-01-17 11:32 | MHC.CLN ---
Addendum entered by Yadira Andersen, [place] 01/17/21 13:45: AGREE WITH PROVIDER'S ASSESSMENT BELOW Original Note: F/U PT IS AT INCREASED NUTRITION RISK R/T UNSTAGEABLE PRESSURE INJURY DIET RX: 1800 DM-APPROPRIATE PO INTAKE DOCUMENTED 75% X 4 MEALS 100% X 1 MEAL PT RECEIVING GLUCERNA BID TO INCREASE PROTEIN PT STATES SHE DRINKS AROUND HALF THE SUPPLEMENT BUT WILL TRY TO DRINK MORE TO ASSIST W/ WOUND HEALING MONITOR PO INTAKE
--- NOTE | 2021-01-17 11:41 | HO.PM.IMPN ---
Subjective Subjective Date of Service: 01/17/21 Interval History: ?Seen in f/u for NSTEMI, feels better, no chest pain or sob, physically deconditioned. Physical therapy is recommended short-term rehab which the patient is agreeable to. Review of Systems no sob no chest pain no fever Physical Exam Vital Signs: Vital Signs: Last Vital Signs Temp 97.8 F 01/17/21 11:21 Pulse 66 01/17/21 11:21 Resp 18 01/17/21 11:21 BP 131/57 L 01/17/21 11:21 Pulse Ox 92 01/17/21 11:21 Body Mass Index 48.2 Const General:?No in distress Orientation/consciousness:?patient oriented x3 Eyes EOM:?EOMs intact bilaterally Neck Neck:?Yes supple Resp Auscultation:?diminished lung sounds Cardio Jugular venous distension:?no JVD GI Palpation (GI):?Soft to palpation Neuro General:?patient oriented x3 Objective Data Active Medications Acetaminophen (Acetaminophen 325 Mg Tablet) 650 mg PO Q6H PRN PRN Reason: headaches Last Admin: 01/17/21 08:22 Dose: 650 mg Documented by: LUCAS Amlodipine Besylate (Amlodipine Besylate 10 Mg Tablet) 10 mg PO DAILY [facility]; Protocol Last Admin: 01/17/21 08:22 Dose: 10 mg Documented by: LUCAS Amoxicillin/Clavulanate Potassium (Amoxicillin/Potassium Clav 875 Mg Tablet) 875 mg PO Q12H [facility] Last Admin: 01/17/21 08:22 Dose: 875 mg Documented by: LUCAS Aspirin (Aspirin Enteric Coated 81 Mg Tablet.) 81 mg PO DAILY [facility] Last Admin: 01/17/21 08:23 Dose: 81 mg Documented by: LUCAS Atorvastatin Calcium (Atorvastatin Calcium 80 Mg Tablet) 80 mg PO BEDTIME [facility] Last Admin: 01/16/21 21:25 Dose: 80 mg Documented by: RAISA Clopidogrel Bisulfate (Clopidogrel Bisulfate 75 Mg Tablet) 75 mg PO DAILY [facility] Last Admin: 01/17/21 08:22 Dose: 75 mg Documented by: LUCAS Dextrose (Dextrose 50 % 25 Gm/50 Ml Vial) 25 gm IVPUSH Q15M PRN; Protocol PRN Reason: per Hypoglycemia Standing Ord. Gabapentin (Gabapentin 600 Mg Tablet) 600 mg PO TID [facility] Last Admin: 01/17/21 08:23 Dose: 600 mg Documented by: LUCAS Glucose (Glucose Gel 15 Gm Gel..Gram.) 15 gm PO Q15M PRN; Protocol PRN Reason: per Hypoglycemia Standing Ord. Heparin Sodium (Porcine) (Heparin Sodium,Porcine 5,000 Unit/Ml Vial) 5,000 unit SUBCUT Q12H [facility] Last Admin: 01/17/21 08:20 Dose: 5,000 unit Documented by: LUCAS Insulin Glargine (Insulin Glargine,Hum.Rec.Anlog 100 Unit/Ml 10 Ml Vial) 20 unit SUBCUT DAILY [facility] Last Admin: 01/17/21 08:21 Dose: 20 unit Documented by: LUCAS Insulin Human Lispro (Insulin Lispro 100 Unit/Ml 3 Ml Vial) 0 unit SUBCUT QIDACHS [facility]; Protocol Last Admin: 01/17/21 08:21 Dose: 12 unit Documented by: LUCAS Isosorbide Mononitrate (Isosorbide Mononitrate 60 Mg Tab.Er.24h) 60 mg PO DAILY [facility]; Protocol Last Admin: 01/17/21 08:23 Dose: 60 mg Documented by: LUCAS Losartan Potassium (Losartan Potassium 25 Mg Tablet) 25 mg PO DAILY [facility]; Protocol Last Admin: 01/17/21 08:23 Dose: 25 mg Documented by: LUCAS Magnesium Hydroxide (Milk Of Magnesia 30 Ml Oral.Susp) 30 ml PO DAILY PRN PRN Reason: Constipation Metoprolol Tartrate (Metoprolol Tartrate 50 Mg Tablet) 50 mg PO BID [facility]; Protocol Last Admin: 01/17/21 08:23 Dose: 50 mg Documented by: LUCAS Omeprazole (Omeprazole 20 Mg Capsule.Dr) 20 mg PO DAILY@0630 [facility] Last Admin: 01/17/21 05:24 Dose: 20 mg Documented by: RAISA Pharmacy Consult (Consult Rx Vancomycin Dosing) 1 each MISCELLANE DAILY PRN PRN Reason: Consult order Polyethylene Glycol (Polyethylene Glycol 3350 17 Gm Powd.Pack) 17 gm PO DAILY PRN PRN Reason: Constipation Last Admin: 01/14/21 15:49 Dose: 17 gm Documented by: ELIUD Sodium Chloride (0.9 % Sodium Chloride Flush 3 Ml Syringe) 3 ml IVFLUSH QSHIFT [facility]ILL[facility] Last Admin: 01/17/21 08:24 Dose: 3 ml Documented by: LUCAS Labs CBC & Chem 7: 01/17/21 06:27 01/16/21 08:02 Labs: Laboratory Results - last 24 hr 01/15/21 01/15/21 01/16/21 06:36 06:36 15:54 MCV MCH MCHC RDW Plt Count MPV Absolute Nucleated RBC Nucleated RBC % (auto) POC Glucose 326 H PTH Intact 134 H Calcium (PTH Intact) 7.9 L IgG Total 1483 IgA Total 349 H IgM 116 GEMINI Interpretation 01/16/21 01/17/21 01/17/21 20:19 06:27 07:16 MCV 94.4 MCH 29.7 MCHC 31.4 RDW 13.2 Plt Count 238 MPV 11.2 Absolute Nucleated RBC 0.020 H Nucleated RBC % (auto) 0.2 POC Glucose 371 H* 331 H PTH Intact Calcium (PTH Intact) IgG Total IgA Total IgM GEMINI Interpretation 01/17/21 11:02 MCV MCH MCHC RDW Plt Count MPV Absolute Nucleated RBC Nucleated RBC % (auto) POC Glucose 316 H PTH Intact Calcium (PTH Intact) IgG Total IgA Total IgM GEMINI Interpretation Assessment and Plan (1) NSTEMI (non-ST elevated myocardial infarction): Status: Acute (2) Sepsis: Status: Acute (3) Acute hyperglycemia: Status: Acute Assessment and Plan: 69-year-old female who came to the hospital because of chest pain, uncontrolled hypertension, uncontrolled diabetes, NSTEMI. 1. Sepsis/cellulitis of leg, clinically looks better and looks mostly chronic. Stop Zosyn today, oral Augmentin for 5 days 2. NSTEMI:hx of cads/p stent has completed heparin drip continue Plavix, bb, statin stress test showed: 1.? Myocardial perfusion imaging study shows septal and apical ischemia in mid to distal LAD territory 2.? Gated LVEF is 59% with stress and 66% with stress 3. Transient ischemic dilatation present Cardilogy recommend optimization of medical therapy 3. Uncontrolled hypertension: continue Metoprolol, increase norvasc to 10 4. Diabetes, continue Lantus and SSI, monitor sugars 5. Right leg x-ray shows fracture of distal tibia and fibula ? ,talus laterally displaced-moves right and left extermity fine , no pain, chronic changes from injury 3 years ago. Outpatient f/u 6. UTI--culture e.coli and group b strep, augmentin for 5 days 7. ckd 3 stable. to rehab today when bed available her brother -Mr Bob hernandez is [phone]( home ), ). Quality Stroke Does the patient have a stroke diagnosis?: No VTE Prior VTE?: No VTE Risk Level:: Medical - moderate - high VTE Device Contraindication: N/A - Device Ordered VTE Drug Contraindication: N/A - Med Ordered
--- NOTE | 2021-01-17 13:05 | PM.PNNEP ---
Subjective Subjective Date of Service: 01/17/21 Principal diagnosis: IRINA on CKD Interval history: ?Seen and examined, events noted Physical Exam Vital Signs: Vital Signs: Last Vital Signs Temp 97.8 F 01/17/21 11:21 Pulse 66 01/17/21 11:21 Resp 18 01/17/21 11:21 BP 131/57 L 01/17/21 11:21 Pulse Ox 92 01/17/21 11:21 Body Mass Index 48.2 Const: General: No in distress Orientation/consciousness: patient oriented x3 Eyes: EOM: EOMs intact bilaterally Neck: Neck: Yes supple Resp: Auscultation: diminished lung sounds Cardio: Jugular venous distension: no JVD GI: Palpation (GI): Soft to palpation Neuro: General: patient oriented x3 Objective Data Labs CBC & Chem 7: 01/17/21 06:27 01/16/21 08:02 Labs: Laboratory Results - last 24 hr 01/15/21 01/15/21 01/16/21 06:36 06:36 15:54 WBC RBC Hgb Hct MCV MCH MCHC RDW Plt Count MPV Absolute Nucleated RBC Nucleated RBC % (auto) POC Glucose 326 H PTH Intact 134 H Calcium (PTH Intact) 7.9 L IgG Total 1483 IgA Total 349 H IgM 116 GEMINI Interpretation 01/16/21 01/17/21 01/17/21 20:19 06:27 07:16 WBC 8.8 RBC 4.11 L Hgb 12.2 Hct 38.8 MCV 94.4 MCH 29.7 MCHC 31.4 RDW 13.2 Plt Count 238 MPV 11.2 Absolute Nucleated RBC 0.020 H Nucleated RBC % (auto) 0.2 POC Glucose 371 H* 331 H PTH Intact Calcium (PTH Intact) IgG Total IgA Total IgM GEMINI Interpretation 01/17/21 11:02 WBC RBC Hgb Hct MCV MCH MCHC RDW Plt Count MPV Absolute Nucleated RBC Nucleated RBC % (auto) POC Glucose 316 H PTH Intact Calcium (PTH Intact) IgG Total IgA Total IgM GEMINI Interpretation Microbiology Microbiology Results: Microbiology 01/12/21 09:39 Blood - Venous Blood Culture - Final No growth after 5 days. 01/12/21 09:25 Blood - Venous Blood Culture - Final Coag negative Staphylococcus 01/12/21 00:00 Urine Catheterized - Straight Catheter Urine Culture - Final Strep agalactiae (Grp B) Escherichia coli Procedures Date of Service Date of Service: 01/17/21 Assessment & Plan Assessment and plan (1) CKD (chronic kidney disease) stage 4, GFR 15-29 ml/min: Status: Acute Assessment and Plan: 1. 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 CAD: w/u by card and CCAth on hold and med Tx 3.DM 4. HTN: labile but remains suboptimal REC: cont RASi ( Il add cozaar) now that CCath cancelled and track renal func; urine and sero ordered to r/o non-DM causes of CKD; avoid NToxins Time Spent With Patient Time: Total time spent is greater than 50% in coordination of care (as documented) at patient's floor/unit and/or counseling patient: Progress Note: Quality Stroke Does the patient have a stroke diagnosis?: No
[2021-01-17 16:13] LABS: Glucose, Whole Blood 348 mg/dL (60-115)
[2021-01-17 20:22] LABS: Glucose, Whole Blood 350 mg/dL (60-115)
[2021-01-17] MEDS: Atorvastatin Calcium 80 MG TABLET PO (20:42)
[2021-01-18] VITALS (10 sets, daily range): BP systolic 102–169; BP diastolic 42–76; PULSE 63–73; RESP 16–18; TEMP 36.2–37.1; O2SAT 90–93
[2021-01-18] MEDS: Acetaminophen 325 MG TABLET 650 MG PO ×3 (02:07→21:24)
[2021-01-18] MEDS: Omeprazole 20 MG CAPSULE.DR PO (06:06)
[2021-01-18 07:36] LABS: Glucose, Whole Blood 340 mg/dL (60-115)
[2021-01-18] MEDS: Insulin Lispro 100 UNIT/ML 3 ML VIAL SUBCUT ×4 (08:15→21:25)
[2021-01-18] MEDS: Insulin Glargine,Hum.rec.anlog 100 UNIT/ML 10 ML VIAL 20 UNIT SUBCUT (08:15)
[2021-01-18] MEDS: Heparin Sodium,Porcine 5,000 UNIT/ML VIAL 5000 UNIT SUBCUT ×2 (08:16→21:26)
[2021-01-18] MEDS: Aspirin Enteric Coated 81 MG TABLET.DR PO (09:33)
[2021-01-18] MEDS: Isosorbide Mononitrate 60 MG TAB.ER.24H PO (09:33)
[2021-01-18] MEDS: Losartan Potassium 25 MG TABLET PO ×2 (09:33→13:46)
[2021-01-18] MEDS: Clopidogrel Bisulfate 75 MG TABLET PO (09:34)
[2021-01-18] MEDS: Metoprolol Tartrate 50 MG TABLET PO ×2 (09:34→21:25)
[2021-01-18] MEDS: Gabapentin 600 MG TABLET PO ×3 (09:34→21:24)
[2021-01-18] MEDS: 0.9 % Sodium Chloride Flush 3 ML SYRINGE IVFLUSH ×3 (09:34→21:26)
[2021-01-18] MEDS: amLODIPine Besylate 10 MG TABLET PO (09:34)
--- NOTE | 2021-01-18 11:45 | PM.PNNEP ---
Subjective Subjective Date of Service: 01/18/21 Principal diagnosis: IRINA on CKD Interval history: ?Seen and examined, events noted Physical Exam Vital Signs: Vital Signs: Last Vital Signs Temp 97.2 F 01/18/21 08:00 Pulse 73 01/18/21 09:34 Resp 18 01/18/21 08:00 BP 169/76 H 01/18/21 09:34 Pulse Ox 92 01/18/21 08:00 Body Mass Index 48.2 Const: General: No in distress Orientation/consciousness: patient oriented x3 Eyes: EOM: EOMs intact bilaterally Neck: Neck: Yes supple Resp: Auscultation: diminished lung sounds Cardio: Jugular venous distension: no JVD GI: Palpation (GI): Soft to palpation Neuro: General: patient oriented x3 Objective Data Labs CBC & Chem 7: 01/17/21 06:27 01/16/21 08:02 Labs: Laboratory Results - last 24 hr 01/17/21 01/17/21 01/18/21 16:09 20:14 07:26 POC Glucose 348 H 350 H* 340 H Microbiology Microbiology Results: Microbiology 01/12/21 09:39 Blood - Venous Blood Culture - Final No growth after 5 days. 01/12/21 09:25 Blood - Venous Blood Culture - Final Coag negative Staphylococcus 01/12/21 00:00 Urine Catheterized - Straight Catheter Urine Culture - Final Strep agalactiae (Grp B) Escherichia coli Procedures Date of Service Date of Service: 01/18/21 Assessment & Plan Assessment and plan (1) CKD (chronic kidney disease) stage 4, GFR 15-29 ml/min: Status: Acute Assessment and Plan: stable kidney function known severe CKD baseline Scr ~ 1.7 mg/dl suspect DN/HTN renal disease per cardiology, conservative medical management REC continue RAAS blockade titrate losartan as needed follow kidney function and electrolytes Time Spent With Patient Time: Total time spent is greater than 50% in coordination of care (as documented) at patient's floor/unit and/or counseling patient: Progress Note: Quality Stroke Does the patient have a stroke diagnosis?: No
[2021-01-18 12:09] LABS: Glucose, Whole Blood 342 mg/dL (60-115)
--- NOTE | 2021-01-18 12:23 | HO.PM.IMPN ---
Subjective Subjective Date of Service: 01/18/21 Interval History: f/u on nstemi, remains stable, no cp no sob, still doesm't have rehab bed yet Review of Systems no sob no chest pain no fever Physical Exam Vital Signs: Vital Signs: Last Vital Signs Temp 97.2 F 01/18/21 08:00 Pulse 73 01/18/21 09:34 Resp 18 01/18/21 08:00 BP 169/76 H 01/18/21 09:34 Pulse Ox 92 01/18/21 08:00 Body Mass Index 48.2 General: AO X 3, no acute distress Resp: CTA bilateral CVS: S1,S2,RRR GI: +BS, NT, no distention Skin: No rash Neuro: motor grossly intact Psych: appropriate affect Objective Data Active Medications Acetaminophen (Acetaminophen 325 Mg Tablet) 650 mg PO Q6H PRN PRN Reason: headaches Last Admin: 01/18/21 12:14 Dose: 650 mg Documented by: TANGELA Amlodipine Besylate (Amlodipine Besylate 10 Mg Tablet) 10 mg PO DAILY [facility]; Protocol Last Admin: 01/18/21 09:34 Dose: 10 mg Documented by: TANGELA Aspirin (Aspirin Enteric Coated 81 Mg Tablet.Dr) 81 mg PO DAILY [facility] Last Admin: 01/18/21 09:33 Dose: 81 mg Documented by: TANGELA Atorvastatin Calcium (Atorvastatin Calcium 80 Mg Tablet) 80 mg PO BEDTIME [facility] Last Admin: 01/17/21 20:42 Dose: 80 mg Documented by: TRACE Clopidogrel Bisulfate (Clopidogrel Bisulfate 75 Mg Tablet) 75 mg PO DAILY [facility] Last Admin: 01/18/21 09:34 Dose: 75 mg Documented by: TANGELA Dextrose (Dextrose 50 % 25 Gm/50 Ml Vial) 25 gm IVPUSH Q15M PRN; Protocol PRN Reason: per Hypoglycemia Standing Ord. Gabapentin (Gabapentin 600 Mg Tablet) 600 mg PO TID [facility] Last Admin: 01/18/21 09:34 Dose: 600 mg Documented by: TANGELA Glucose (Glucose Gel 15 Gm Gel..Gram.) 15 gm PO Q15M PRN; Protocol PRN Reason: per Hypoglycemia Standing Ord. Heparin Sodium (Porcine) (Heparin Sodium,Porcine 5,000 Unit/Ml Vial) 5,000 unit SUBCUT Q12H [facility] Last Admin: 01/18/21 08:16 Dose: 5,000 unit Documented by: TANGELA Insulin Glargine (Insulin Glargine,Hum.Rec.Anlog 100 Unit/Ml 10 Ml Vial) 20 unit SUBCUT DAILY [facility] Last Admin: 01/18/21 08:15 Dose: 20 unit Documented by: TANGELA Insulin Human Lispro (Insulin Lispro 100 Unit/Ml 3 Ml Vial) 0 unit SUBCUT QIDACHS [facility]; Protocol Last Admin: 01/18/21 12:11 Dose: 14 unit Documented by: TANGELA Isosorbide Mononitrate (Isosorbide Mononitrate 60 Mg Tab.Er.24h) 60 mg PO DAILY [facility]; Protocol Last Admin: 01/18/21 09:33 Dose: 60 mg Documented by: TANGELA Losartan Potassium (Losartan Potassium 25 Mg Tablet) 25 mg PO DAILY [facility]; Protocol Last Admin: 01/18/21 09:33 Dose: 25 mg Documented by: TANGELA Magnesium Hydroxide (Milk Of Magnesia 30 Ml Oral.Susp) 30 ml PO DAILY PRN PRN Reason: Constipation Metoprolol Tartrate (Metoprolol Tartrate 50 Mg Tablet) 50 mg PO BID [facility]; Protocol Last Admin: 01/18/21 09:34 Dose: 50 mg Documented by: TANGELA Omeprazole (Omeprazole 20 Mg Capsule.Dr) 20 mg PO DAILY@0630 [facility] Last Admin: 01/18/21 06:06 Dose: 20 mg Documented by: TRACE Pharmacy Consult (Consult Rx Vancomycin Dosing) 1 each MISCELLANE DAILY PRN PRN Reason: Consult order Polyethylene Glycol (Polyethylene Glycol 3350 17 Gm Powd.Pack) 17 gm PO DAILY PRN PRN Reason: Constipation Last Admin: 01/14/21 15:49 Dose: 17 gm Documented by: ELIUD Sodium Chloride (0.9 % Sodium Chloride Flush 3 Ml Syringe) [facility] Last Admin: 01/18/21 09:34 Dose: 3 ml Documented by: TANGELA Labs CBC & Chem 7: 01/17/21 06:27 01/16/21 08:02 Labs: Laboratory Results - last 24 hr 01/17/21 01/17/21 01/18/21 16:09 20:14 07:26 POC Glucose 348 H 350 H* 340 H 01/18/21 12:00 POC Glucose 342 H Microbiology Microbiology Results: Microbiology 01/12/21 09:39 Blood Culture - Final Blood - Venous No growth after 5 days. Assessment and Plan (1) NSTEMI (non-ST elevated myocardial infarction): Status: Acute Assessment and Plan: 69-year-old female who came to the hospital because of chest pain, uncontrolled hypertension, uncontrolled diabetes, NSTEMI. 1. Sepsis/cellulitis of leg, clinically looks better and looks mostly chronic. Stop Zosyn today, oral Augmentin for 5 days 2. NSTEMI completed heparin drip x 48 continue Plavix, bb, statin stress test showed: 1.? Myocardial perfusion imaging study shows septal and apical ischemia in mid to distal LAD territory 2.? Gated LVEF is 59% with stress and 66% with stress 3. Transient ischemic dilatation present Cardilogy recommend optimization of medical therapy 3. Uncontrolled hypertension: continue Metoprolol 50 bid, norasc 10 qd, incrase losartan to 50 daily 4. Diabetes, uncontrolled (at home humaglog 50 tid) continue Lantus, incrase to 30 and continue SSI, monitor sugars 5. Right leg x-ray shows fracture of distal tibia and fibula ? ,talus laterally displaced-moves right and left extermity fine , no pain, chronic changes from injury 3 years ago. Outpatient f/u 6. UTI--culture e.coli and group b strep, augmentin for 5 days 7. ckd 3 stable. to rehab today when bed available her brother -Mr Rojas no is [phone]( home ), ). Quality Stroke Does the patient have a stroke diagnosis?: No VTE Prior VTE?: No VTE Risk Level:: Medical - moderate - high VTE Device Contraindication: N/A - Device Ordered VTE Drug Contraindication: N/A - Med Ordered
[2021-01-18] MEDS: Insulin Glargine,Hum.rec.anlog 100 UNIT/ML 10 ML VIAL 10 UNIT SUBCUT (13:47)
[2021-01-18 16:16] LABS: Glucose, Whole Blood 356 mg/dL (60-115)
[2021-01-18 20:31] LABS: Glucose, Whole Blood 264 mg/dL (60-115)
[2021-01-18] MEDS: Atorvastatin Calcium 80 MG TABLET PO (21:24)
[2021-01-19] VITALS (8 sets, daily range): BP systolic 119–178; BP diastolic 56–64; PULSE 56–77; RESP 17–18; TEMP 36.3–36.8; O2SAT 90–92
[2021-01-19] MEDS: Acetaminophen 325 MG TABLET 650 MG PO ×3 (03:22→20:13)
[2021-01-19] MEDS: Omeprazole 20 MG CAPSULE.DR PO (06:25)
[2021-01-19 07:43] LABS: Glucose, Whole Blood 297 mg/dL (60-115)
--- NOTE | 2021-01-19 08:17 | PM.PNNEP ---
Subjective Subjective Date of Service: 01/19/21 Principal diagnosis: IRINA on CKD Interval history: seen and examined no complaints Physical Exam Vital Signs: Vital Signs: Last Vital Signs Temp 97.4 F 01/19/21 07:35 Pulse 71 01/19/21 07:35 Resp 18 01/19/21 07:35 BP 178/62 H 01/19/21 07:35 Pulse Ox 91 L 01/19/21 07:35 Body Mass Index 48.2 Const: General: No in distress Orientation/consciousness: patient oriented x3 Eyes: EOM: EOMs intact bilaterally Neck: Neck: Yes supple Resp: Auscultation: diminished lung sounds Cardio: Jugular venous distension: no JVD GI: Palpation (GI): Soft to palpation Neuro: General: patient oriented x3 Objective Data Labs CBC & Chem 7: 01/17/21 06:27 01/16/21 08:02 Labs: Laboratory Results - last 24 hr 01/18/21 01/18/21 01/18/21 12:00 16:13 20:25 POC Glucose 342 H 356 H* 264 H 01/19/21 07:34 POC Glucose 297 H Microbiology Microbiology Results: Microbiology 01/12/21 09:39 Blood - Venous Blood Culture - Final No growth after 5 days. 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
[2021-01-19] MEDS: Insulin Glargine,Hum.rec.anlog 100 UNIT/ML 10 ML VIAL 30 UNIT SUBCUT (08:43)
[2021-01-19] MEDS: Heparin Sodium,Porcine 5,000 UNIT/ML VIAL 5000 UNIT SUBCUT ×2 (08:44→20:14)
[2021-01-19] MEDS: Insulin Lispro 100 UNIT/ML 3 ML VIAL SUBCUT ×4 (08:44→20:14)
[2021-01-19] MEDS: 0.9 % Sodium Chloride Flush 3 ML SYRINGE IVFLUSH ×3 (08:44→20:15)
[2021-01-19] MEDS: Isosorbide Mononitrate 60 MG TAB.ER.24H PO (08:44)
[2021-01-19] MEDS: Losartan Potassium 50 MG TABLET PO (08:45)
[2021-01-19] MEDS: Gabapentin 600 MG TABLET PO ×3 (08:45→20:15)
[2021-01-19] MEDS: Metoprolol Tartrate 50 MG TABLET PO ×2 (08:45→20:15)
[2021-01-19] MEDS: amLODIPine Besylate 10 MG TABLET PO (08:45)
[2021-01-19] MEDS: Aspirin Enteric Coated 81 MG TABLET.DR PO (08:45)
[2021-01-19] MEDS: Clopidogrel Bisulfate 75 MG TABLET PO (08:46)
[2021-01-19 08:48] LABS: Anion Gap 14 (12-20); Blood Urea Nitrogen 37 mg/dL (9-16); Carbon Dioxide 23 mmol/L (22-29); Chloride 104 mmol/L (96-108); Creatinine Clr Calc Pharmacy 39.3; Estimated Glomerular Filt Rate 27; Glucose Random 333 mg/dL (60-115); Potassium 4.9 mmol/L (3.3-5.1); Sodium 136 mmol/L (135-145)
--- NOTE | 2021-01-19 11:06 | HO.PM.IMPN ---
Subjective Subjective Date of Service: 01/20/21 Interval History: f/u on nstemi, remains stable, no cp no sob, still doesm't have rehab bed yet, had an episode of diarrhea overnight Review of Systems no sob no chest pain no fever Physical Exam Vital Signs: Vital Signs: Last Vital Signs Temp 97.3 F 01/19/21 11:05 Pulse 65 01/19/21 11:05 Resp 18 01/19/21 11:05 BP 123/60 01/19/21 11:05 Pulse Ox 91 L 01/19/21 11:05 Body Mass Index 48.2 General: AO X 3, no acute distress Resp:? CTA bilateral CVS: S1,S2,RRR GI: +BS, NT, no distention Skin: No rash Neuro:? motor grossly intact Psych: appropriate affect ? Objective Data Active Medications Acetaminophen (Acetaminophen 325 Mg Tablet) 650 mg PO Q6H PRN PRN Reason: headaches Last Admin: 01/19/21 10:13 Dose: 650 mg Documented by: TANGELA Amlodipine Besylate (Amlodipine Besylate 10 Mg Tablet) 10 mg PO DAILY [facility]; Protocol Last Admin: 01/19/21 08:45 Dose: 10 mg Documented by: TANGELA Aspirin (Aspirin Enteric Coated 81 Mg Tablet.) 81 mg PO DAILY [facility] Last Admin: 01/19/21 08:45 Dose: 81 mg Documented by: TANGELA Atorvastatin Calcium (Atorvastatin Calcium 80 Mg Tablet) 80 mg PO BEDTIME [facility] Last Admin: 01/18/21 21:24 Dose: 80 mg Documented by: VIV Clopidogrel Bisulfate (Clopidogrel Bisulfate 75 Mg Tablet) 75 mg PO DAILY [facility] Last Admin: 01/19/21 08:46 Dose: 75 mg Documented by: TANGELA Dextrose (Dextrose 50 % 25 Gm/50 Ml Vial) 25 gm IVPUSH Q15M PRN; Protocol PRN Reason: per Hypoglycemia Standing Ord. Gabapentin (Gabapentin 600 Mg Tablet) 600 mg PO TID [facility] Last Admin: 01/19/21 08:45 Dose: 600 mg Documented by: TANGELA Glucose (Glucose Gel 15 Gm Gel..Gram.) 15 gm PO Q15M PRN; Protocol PRN Reason: per Hypoglycemia Standing Ord. Heparin Sodium (Porcine) (Heparin Sodium,Porcine 5,000 Unit/Ml Vial) 5,000 unit SUBCUT Q12H [facility] Last Admin: 01/19/21 08:44 Dose: 5,000 unit Documented by: TANGELA Insulin Glargine (Insulin Glargine,Hum.Rec.Anlog 100 Unit/Ml 10 Ml Vial) 30 unit SUBCUT DAILY [facility] Last Admin: 01/19/21 08:43 Dose: 30 unit Documented by: TANGELA Insulin Human Lispro (Insulin Lispro 100 Unit/Ml 3 Ml Vial) 0 unit SUBCUT QIDACHS [facility]; Protocol Last Admin: 01/19/21 08:44 Dose: 6 unit Documented by: TANGELA Isosorbide Mononitrate (Isosorbide Mononitrate 60 Mg Tab.Er.24h) 60 mg PO DAILY [facility]; Protocol Last Admin: 01/19/21 08:44 Dose: 60 mg Documented by: TANGELA Losartan Potassium (Losartan Potassium 50 Mg Tablet) 50 mg PO DAILY [facility]; Protocol Last Admin: 01/19/21 08:45 Dose: 50 mg Documented by: TANGELA Magnesium Hydroxide (Milk Of Magnesia 30 Ml Oral.Susp) 30 ml PO DAILY PRN PRN Reason: Constipation Metoprolol Tartrate (Metoprolol Tartrate 50 Mg Tablet) 50 mg PO BID [facility]; Protocol Last Admin: 01/19/21 08:45 Dose: 50 mg Documented by: TANGELA Omeprazole (Omeprazole 20 Mg Capsule.Dr) 20 mg PO DAILY@0630 [facility] Last Admin: 01/19/21 06:25 Dose: 20 mg Documented by: VIV Pharmacy Consult (Consult Rx Vancomycin Dosing) 1 each MISCELLANE DAILY PRN PRN Reason: Consult order Polyethylene Glycol (Polyethylene Glycol 3350 17 Gm Powd.Pack) 17 gm PO DAILY PRN PRN Reason: Constipation Last Admin: 01/14/21 15:49 Dose: 17 gm Documented by: ELIUD Sodium Chloride (0.9 % Sodium Chloride Flush 3 Ml Syringe) 3 ml IVFLUSH QSHIFT [facility] Last Admin: 01/19/21 08:44 Dose: 3 ml Documented by: TANGELA Labs CBC & Chem 7: 01/17/21 06:27 01/19/21 07:52 Labs: Laboratory Results - last 24 hr 01/18/21 01/18/21 01/18/21 12:00 16:13 20:25 Anion Gap Estim Creat Clear Calc Estimated GFR POC Glucose 342 H 356 H* 264 H Random Glucose Calcium 01/19/21 01/19/21 07:34 07:52 Anion Gap 14 Estim Creat Clear Calc 39.3 Estimated GFR 27 POC Glucose 297 H Random Glucose 333 H Calcium 8.0 L Assessment and Plan (1) NSTEMI (non-ST elevated myocardial infarction): Status: Acute (2) CKD (chronic kidney disease): Status: Acute (3) HTN (hypertension): Status: Acute Assessment and Plan: 69-year-old female who came to the hospital because of chest pain, uncontrolled hypertension, uncontrolled diabetes, NSTEMI. 1. Sepsis/cellulitis of leg, clinically looks better and looks mostly chronic. Stop Zosyn today, oral Augmentin for 5 days 2. NSTEMI completed heparin drip x 48 hrs continue Plavix, bb, statin stress test showed: 1.? Myocardial perfusion imaging study shows septal and apical ischemia in mid to distal LAD territory 2.? Gated LVEF is 59% with stress and 66% with stress 3. Transient ischemic dilatation present Cardilogy recommend optimization of medical therapy 3.Hypertension: continue Metoprolol 50 bid, norasc 10 qd, incrase losartan to 50 daily 4. Diabetes, uncontrolled, (at home humaglog 50 tid), continue Lantus, incrase to 40 and continue SSI, monitor sugars, FBS was 297 5. Right leg x-ray shows fracture of distal tibia and fibula ? ,talus laterally displaced-moves right and left extermity fine , no pain, chronic changes from injury 3 years ago. Outpatient f/u 6. UTI--culture e.coli and group b strep, augmentin for 5 days 7. ckd 3 stable. to rehab today when bed available her brother -Mr Rojas no is [phone]( home ), ). Quality Stroke Does the patient have a stroke diagnosis?: No VTE Prior VTE?: No VTE Risk Level:: Medical - moderate - high VTE Device Contraindication: N/A - Device Ordered VTE Drug Contraindication: N/A - Med Ordered
[2021-01-19 11:19] LABS: Glucose, Whole Blood 401 mg/dL (60-115)
[2021-01-19 16:26] LABS: Glucose, Whole Blood 321 mg/dL (60-115)
[2021-01-19 20:09] LABS: Glucose, Whole Blood 370 mg/dL (60-115)
[2021-01-19] MEDS: Atorvastatin Calcium 80 MG TABLET PO (20:15)
[2021-01-20] VITALS (11 sets, daily range): BP systolic 113–157; BP diastolic 48–67; PULSE 66–72; RESP 18–20; TEMP 36.2–37; O2SAT 92–97
[2021-01-20] MEDS: Acetaminophen 325 MG TABLET 650 MG PO ×3 (02:27→21:12)
[2021-01-20] MEDS: Omeprazole 20 MG CAPSULE.DR PO (05:52)
[2021-01-20 07:27] LABS: Glucose, Whole Blood 373 mg/dL (60-115)
[2021-01-20] MEDS: Insulin Glargine,Hum.rec.anlog 100 UNIT/ML 10 ML VIAL 40 UNIT SUBCUT (08:14)
[2021-01-20] MEDS: 0.9 % Sodium Chloride Flush 3 ML SYRINGE IVFLUSH ×3 (08:14→21:13)
[2021-01-20] MEDS: Insulin Lispro 100 UNIT/ML 3 ML VIAL SUBCUT ×8 (08:15→21:13)
[2021-01-20] MEDS: Heparin Sodium,Porcine 5,000 UNIT/ML VIAL 5000 UNIT SUBCUT ×2 (08:15→21:13)
[2021-01-20] MEDS: Gabapentin 600 MG TABLET PO ×3 (08:16→21:13)
[2021-01-20] MEDS: Metoprolol Tartrate 50 MG TABLET PO ×2 (08:16→21:12)
[2021-01-20] MEDS: Losartan Potassium 50 MG TABLET PO (08:16)
[2021-01-20] MEDS: Clopidogrel Bisulfate 75 MG TABLET PO (08:16)
[2021-01-20] MEDS: Isosorbide Mononitrate 60 MG TAB.ER.24H PO (08:16)
[2021-01-20] MEDS: amLODIPine Besylate 10 MG TABLET PO (08:17)
[2021-01-20] MEDS: Aspirin Enteric Coated 81 MG TABLET.DR PO (08:17)
[2021-01-20 11:07] LABS: Glucose, Whole Blood 385 mg/dL (60-115)
--- NOTE | 2021-01-20 11:27 | MHC.CM.PN ---
Per ROUNDS discussion, Patient is medically cleared for dc today to STR/SNF. Patient's first choice SNF is [address] [place] [address]. Referrals have been made and CM will continue to follow.
--- NOTE | 2021-01-20 11:42 | PM.PNNEP ---
Subjective Subjective Date of Service: 01/20/21 Principal diagnosis: IRINA on CKD Interval history: Events noted Feeling OK Physical Exam Vital Signs: Vital Signs: Last Vital Signs Temp 97.5 F 01/20/21 08:00 Pulse 72 01/20/21 08:17 Resp 20 01/20/21 08:00 BP 157/56 H 01/20/21 08:17 Pulse Ox 92 01/20/21 08:00 Body Mass Index 48.2 Const: General: cooperative, alert and awake Orientation/consciousness: oriented to person Neck: Neck: Yes full ROM and Yes supple Resp: Effort & Inspection: normal respiratory effort Auscultation: clear to auscultation bilaterally Cardio: Jugular venous distension: no JVD Palpation: no palpable S4 Heart sounds: no rubs GI: Palpation (GI): Soft to palpation Auscultation: normal bowel sounds Neuro: General: oriented to person Motor exam (neuro): no asterixis Objective Data Labs CBC & Chem 7: 01/17/21 06:27 01/19/21 07:52 Labs: Laboratory Results - last 24 hr 01/19/21 01/19/21 01/20/21 16:22 19:52 07:24 POC Glucose 321 H 370 H* 373 H* 01/20/21 11:03 POC Glucose 385 H* Microbiology Microbiology Results: Microbiology 01/12/21 09:39 Blood - Venous Blood Culture - Final No growth after 5 days. 01/12/21 09:25 Blood - Venous Blood Culture - Final Coag negative Staphylococcus 01/12/21 00:00 Urine Catheterized - Straight Catheter Urine Culture - Final Strep agalactiae (Grp B) Escherichia coli Procedures Date of Service Date of Service: 01/20/21 Assessment & Plan Assessment and plan (1) CKD (chronic kidney disease) stage 4, GFR 15-29 ml/min: Status: Acute Assessment and Plan: (1) CKD (chronic kidney disease) stage 4, GFR 15-29 ml/min: ? ? 1. CKD 4: Scr cont decr to 1.7? at bsl;suspect DN/HTN renal dis 2. CAD: w/u by card and CCAth on hold and med Tx 3.DM 4. HTN: labile but remains suboptimal REC: cont RASi -added cozaar 01/19 now that CCath cancelled and track renal func; urine and sero ordered to r/o non-DM causes of CKD; -Although unlikely Continue to avoid NToxins Time Spent With Patient Time: Total time spent is greater than 50% in coordination of care (as documented) at patient's floor/unit and/or counseling patient: Progress Note: Quality Stroke Does the patient have a stroke diagnosis?: No
--- NOTE | 2021-01-20 12:24 | MHC.CLN ---
F/U PT IS AT INCREASED NUTRITION RISK R/T UNSTAGEABLE PRESSURE INJURY PO INTAKE 75-100% DIET RX: 1800 DM 2GM NA-APPROPRIATE PT RECEIVING GLUCERNA BID TO INCREASE PROTEIN SUPPLEMENT PROVIDES 474KCALS, 20G PROTEIN MONITOR PO INTAKE
--- NOTE | 2021-01-20 13:29 | PC.NURSE ---
Skin/wound assessment completed. Patient has a pressure ulcer to left stump. It is a stage 2 with a pink granulated wound bed with some eschar. Triad applied to ulcer covered with non woven gauze and roll gauze. Carlos wrap applied to stump and lower leg. Patient also has incontinent skin damage to anus from diarrhea. Red and raw with some open areas. Triad applied. No other skin issues noted at this time.
--- NOTE | 2021-01-20 15:33 | MHC.CM.PN ---
[facility], [facility], [facility] SNFS have no bed availability today. [facility] and [facility] are following and working on what Patient's copay amount will be. CM will present options to Patient and then ask chosen SNF to initiate the auth process.
--- NOTE | 2021-01-20 15:53 | MHC.CM.PN ---
CM met with Patient regarding dc planning.Patient is accepting [facility] bed offer and CM has requested that [facility] initiate auth process. CM will follow.
[2021-01-20 16:18] LABS: Glucose, Whole Blood 309 mg/dL (60-115)
--- NOTE | 2021-01-20 16:51 | P.PNIM_ITS ---
Subjective Subjective Date of Service: 01/21/21 Interval History: f/u on nstemi, remains stable, no cp no sob, still doesm't have rehab bed yet,? no new issues, doing well Review of Systems Review of Systems no sob no chest pain no fever Physical Exam Vital Signs: Vital Signs: Last Vital Signs Temp 97.7 F 01/20/21 15:35 Pulse 66 01/20/21 15:35 Resp 18 01/20/21 15:35 BP 140/49 H 01/20/21 15:35 Pulse Ox 93 01/20/21 15:35 Body Mass Index 48.2 General: AO X 3, no acute distress Resp:? CTA bilateral CVS: S1,S2,RRR GI: +BS, NT, no distention Skin: No rash Neuro:? motor grossly intact Psych: appropriate affect Objective Data Active Medications Acetaminophen (Acetaminophen 325 Mg Tablet) 650 mg PO Q6H PRN PRN Reason: headaches Last Admin: 01/20/21 12:05 Dose: 650 mg Documented by: CHANELL Amlodipine Besylate (Amlodipine Besylate 10 Mg Tablet) 10 mg PO DAILY [facility]; Protocol Last Admin: 01/20/21 08:17 Dose: 10 mg Documented by: CHANELL Aspirin (Aspirin Enteric Coated 81 Mg Tablet.) 81 mg PO DAILY [facility] Last Admin: 01/20/21 08:17 Dose: 81 mg Documented by: CHANELL Atorvastatin Calcium (Atorvastatin Calcium 80 Mg Tablet) 80 mg PO BEDTIME [facility] Last Admin: 01/19/21 20:15 Dose: 80 mg Documented by: TUAN Clopidogrel Bisulfate (Clopidogrel Bisulfate 75 Mg Tablet) 75 mg PO DAILY [facility] Last Admin: 01/20/21 08:16 Dose: 75 mg Documented by: CHANELL Dextrose (Dextrose 50 % 25 Gm/50 Ml Vial) 25 gm IVPUSH Q15M PRN; Protocol PRN Reason: per Hypoglycemia Standing Ord. Gabapentin (Gabapentin 600 Mg Tablet) 600 mg PO TID [facility] Last Admin: 01/20/21 16:35 Dose: 600 mg Documented by: CHANELL Glucose (Glucose Gel 15 Gm Gel..Gram.) 15 gm PO Q15M PRN; Protocol PRN Reason: per Hypoglycemia Standing Ord. Heparin Sodium (Porcine) (Heparin Sodium,Porcine 5,000 Unit/Ml Vial) 5,000 unit SUBCUT Q12H [facility] Last Admin: 01/20/21 08:15 Dose: 5,000 unit Documented by: CHANELL Insulin Glargine (Insulin Glargine,Hum.Rec.Anlog 100 Unit/Ml 10 Ml Vial) 40 unit SUBCUT DAILY [facility] Last Admin: 01/20/21 08:14 Dose: 40 unit Documented by: CHANELL Insulin Human Lispro (Insulin Lispro 100 Unit/Ml 3 Ml Vial) 0 unit SUBCUT QIDACHS [facility]; Protocol Last Admin: 01/20/21 16:35 Dose: 1 unit Documented by: CHANELL Insulin Human Lispro (Insulin Lispro 100 Unit/Ml 3 Ml Vial) 5 unit SUBCUT QIDACHS [facility] Last Admin: 01/20/21 16:38 Dose: 5 unit Documented by: CHANELL Isosorbide Mononitrate (Isosorbide Mononitrate 60 Mg Tab.Er.24h) 60 mg PO DAILY [facility]; Protocol Last Admin: 01/20/21 08:16 Dose: 60 mg Documented by: CHANELL Losartan Potassium (Losartan Potassium 50 Mg Tablet) 50 mg PO DAILY [facility]; Protocol Last Admin: 01/20/21 08:16 Dose: 50 mg Documented by: CHANELL Magnesium Hydroxide (Milk Of Magnesia 30 Ml Oral.Susp) 30 ml PO DAILY PRN PRN Reason: Constipation Metoprolol Tartrate (Metoprolol Tartrate 50 Mg Tablet) 50 mg PO BID [facility]; Protocol Last Admin: 01/20/21 08:16 Dose: 50 mg Documented by: CHANELL Omeprazole (Omeprazole 20 Mg Capsule.Dr) 20 mg PO DAILY@0630 [facility] Last Admin: 01/20/21 05:52 Dose: 20 mg Documented by: TUAN Polyethylene Glycol (Polyethylene Glycol 3350 17 Gm Powd.Pack) 17 gm PO DAILY PRN PRN Reason: Constipation Last Admin: 01/14/21 15:49 Dose: 17 gm Documented by: ELIUD Sodium Chloride (0.9 % Sodium Chloride Flush 3 Ml Syringe) 3 ml IVFLUSH QSHIFT [facility] Last Admin: 01/20/21 16:36 Dose: 3 ml Documented by: CHANELL Labs CBC & Chem 7: 01/17/21 06:27 01/19/21 07:52 Labs: Laboratory Results - last 24 hr 01/19/21 01/20/21 01/20/21 19:52 07:24 11:03 POC Glucose 370 H* 373 H* 385 H* 01/20/21 16:14 POC Glucose 309 H Assessment and Plan (1) NSTEMI (non-ST elevated myocardial infarction): Status: Acute (2) CKD (chronic kidney disease): Status: Acute (3) HTN (hypertension): Status: Acute Assessment and Plan: 69-year-old female who came to the hospital because of chest pain, uncontrolled hypertension, uncontrolled diabetes, NSTEMI. 1. Sepsis/cellulitis of leg, clinically looks better and looks mostly chronic. Stop Zosyn today, oral Augmentin for 5 days 2. NSTEMI completed heparin drip x 48 hrs continue Plavix, bb, statin stress test showed: 1.? Myocardial perfusion imaging study shows septal and apical ischemia in mid to distal LAD territory 2.? Gated LVEF is 59% with stress and 66% with stress 3. Transient ischemic dilatation present Cardilogy recommend optimization of medical therapy 3.Hypertension: continue Metoprolol 50 bid, norasc 10 qd, incrase losartan to 50 daily 4. Diabetes, uncontrolled, (at home humaglog 50 tid), continue Lantus, incrase to 40 and continue SSI, monitor sugars, FBS was 297 5. Right leg x-ray shows fracture of distal tibia and fibula ? ,talus laterally displaced-moves right and left extermity fine , no pain, chronic changes from injury 3 years ago. Outpatient f/u 6. UTI--culture e.coli and group b strep, augmentin for 5 days 7. ckd 3 stable. to rehab today when bed available her brother -Mr Rojas no is [phone]( home ), ). Quality Stroke Does the patient have a stroke diagnosis?: No VTE Prior VTE?: No VTE Risk Level:: Medical - moderate - high VTE Device Contraindication: N/A - Device Ordered VTE Drug Contraindication: N/A - Med Ordered
[2021-01-20 20:05] LABS: Glucose, Whole Blood 233 mg/dL (60-115)
[2021-01-20] MEDS: Atorvastatin Calcium 80 MG TABLET PO (21:13)
[2021-01-21] VITALS (8 sets, daily range): BP systolic 108–131; BP diastolic 41–55; PULSE 63–68; RESP 18–20; TEMP 36.6–36.9; O2SAT 92–94
[2021-01-21] MEDS: Omeprazole 20 MG CAPSULE.DR PO (05:24)
[2021-01-21] MEDS: Acetaminophen 325 MG TABLET 650 MG PO ×2 (05:24→11:55)
[2021-01-21 07:15] LABS: Glucose, Whole Blood 271 mg/dL (60-115)
--- NOTE | 2021-01-21 07:27 | P.PNIM_ITS ---
Subjective Subjective Date of Service: 01/21/21 Interval History: f/u on nstemi, remains stable, no cp no sob, still doesm't have rehab bed yet,? no new issues, no new complaint otherwise Review of Systems no sob no chest pain no fever Physical Exam Vital Signs: Vital Signs: Last Vital Signs Temp 98 F 01/21/21 07:01 Pulse 65 01/21/21 07:01 Resp 20 01/21/21 07:01 BP 115/52 L 01/21/21 07:01 Pulse Ox 94 01/21/21 07:01 Body Mass Index 48.2 Objective Data Active Medications Acetaminophen (Acetaminophen 325 Mg Tablet) 650 mg PO Q6H PRN PRN Reason: headaches Last Admin: 01/21/21 05:24 Dose: 650 mg Documented by: JANINA Amlodipine Besylate (Amlodipine Besylate 10 Mg Tablet) 10 mg PO DAILY [facility]; Protocol Last Admin: 01/20/21 08:17 Dose: 10 mg Documented by: CHANELL Aspirin (Aspirin Enteric Coated 81 Mg Tablet.) 81 mg PO DAILY [facility] Last Admin: 01/20/21 08:17 Dose: 81 mg Documented by: CHANELL Atorvastatin Calcium (Atorvastatin Calcium 80 Mg Tablet) 80 mg PO BEDTIME [facility] Last Admin: 01/20/21 21:13 Dose: 80 mg Documented by: JANINA Clopidogrel Bisulfate (Clopidogrel Bisulfate 75 Mg Tablet) 75 mg PO DAILY [facility] Last Admin: 01/20/21 08:16 Dose: 75 mg Documented by: CHANELL Dextrose (Dextrose 50 % 25 Gm/50 Ml Vial) 25 gm IVPUSH Q15M PRN; Protocol PRN Reason: per Hypoglycemia Standing Ord. Gabapentin (Gabapentin 600 Mg Tablet) 600 mg PO TID [facility] Last Admin: 01/20/21 21:13 Dose: 600 mg Documented by: JANINA Glucose (Glucose Gel 15 Gm Gel..Gram.) 15 gm PO Q15M PRN; Protocol PRN Reason: per Hypoglycemia Standing Ord. Heparin Sodium (Porcine) (Heparin Sodium,Porcine 5,000 Unit/Ml Vial) 5,000 unit SUBCUT Q12H [facility] Last Admin: 01/20/21 21:13 Dose: 5,000 unit Documented by: JANINA Insulin Glargine (Insulin Glargine,Hum.Rec.Anlog 100 Unit/Ml 10 Ml Vial) 45 unit SUBCUT DAILY [facility] Insulin Human Lispro (Insulin Lispro 100 Unit/Ml 3 Ml Vial) 0 unit SUBCUT QIDACHS [facility]; Protocol Last Admin: 01/20/21 21:13 Dose: 4 unit Documented by: JANINA Insulin Human Lispro (Insulin Lispro 100 Unit/Ml 3 Ml Vial) 5 unit SUBCUT QIDACHS [facility] Last Admin: 01/20/21 21:13 Dose: 5 unit Documented by: JANINA Isosorbide Mononitrate (Isosorbide Mononitrate 60 Mg Tab.Er.24h) 60 mg PO DAILY [facility]; Protocol Last Admin: 01/20/21 08:16 Dose: 60 mg Documented by: CHANELL Losartan Potassium (Losartan Potassium 50 Mg Tablet) 50 mg PO DAILY [facility]; Protocol Last Admin: 01/20/21 08:16 Dose: 50 mg Documented by: CHANELL Magnesium Hydroxide (Milk Of Magnesia 30 Ml Oral.Susp) 30 ml PO DAILY PRN PRN Reason: Constipation Metoprolol Tartrate (Metoprolol Tartrate 50 Mg Tablet) 50 mg PO BID [facility]; Protocol Last Admin: 01/20/21 21:12 Dose: 50 mg Documented by: JANINA Omeprazole (Omeprazole 20 Mg Capsule.Dr) 20 mg PO DAILY@0630 [facility] Last Admin: 01/21/21 05:24 Dose: 20 mg Documented by: JANINA Polyethylene Glycol (Polyethylene Glycol 3350 17 Gm Powd.Pack) 17 gm PO DAILY PRN PRN Reason: Constipation Last Admin: 01/14/21 15:49 Dose: 17 gm Documented by: ELIUD Sodium Chloride (0.9 % Sodium Chloride Flush 3 Ml Syringe) 3 ml IVFLUSH QSHIFT [facility] Last Admin: 01/20/21 21:13 Dose: 3 ml Documented by: JANINA Labs CBC & Chem 7: 01/17/21 06:27 01/19/21 07:52 Labs: Laboratory Results - last 24 hr 01/20/21 01/20/21 01/20/21 07:24 11:03 16:14 POC Glucose 373 H* 385 H* 309 H 01/20/21 01/21/21 20:02 07:01 POC Glucose 233 H 271 H Assessment and Plan (1) NSTEMI (non-ST elevated myocardial infarction): Status: Acute (2) CKD (chronic kidney disease): Status: Acute (3) HTN (hypertension): Status: Acute Assessment and Plan: 69-year-old female who came to the hospital because of chest pain, uncontrolled hypertension, uncontrolled diabetes, NSTEMI. 1. Sepsis/cellulitis of leg, clinically looks better and looks mostly chronic. completed course of Augmentin 2. NSTEMI completed heparin drip x 48 hrs continue Plavix, bb, statin stress test showed: 1.? Myocardial perfusion imaging study shows septal and apical ischemia in mid to distal LAD territory 2.? Gated LVEF is 59% with stress and 66% with stress 3. Transient ischemic dilatation present Cardilogy recommend optimization of medical therapy 3.Hypertension: continue Metoprolol 50 bid, norasc 10 qd, incrase losartan to 50 daily 4. Diabetes, uncontrolled, (at home humaglog 50 tid), continue Lantus, incrase to 50 and continue SSI, monitor sugars, FBS was 297 5. Right leg x-ray shows fracture of distal tibia and fibula ? ,talus laterally displaced-moves right and left extermity fine , no pain, chronic changes from injury 3 years ago. Outpatient f/u 6. UTI--culture e.coli and group b strep, augmentin for 5 days 7. ckd 3 stable. to rehab today when bed available her brother -Mr Rojas no is [phone]( home ), ). Quality Stroke Does the patient have a stroke diagnosis?: No VTE Prior VTE?: No VTE Risk Level:: Medical - moderate - high VTE Device Contraindication: N/A - Device Ordered VTE Drug Contraindication: N/A - Med Ordered
[2021-01-21] MEDS: Metoprolol Tartrate 50 MG TABLET PO ×2 (07:55→20:52)
[2021-01-21] MEDS: amLODIPine Besylate 10 MG TABLET PO (07:55)
[2021-01-21] MEDS: Clopidogrel Bisulfate 75 MG TABLET PO (07:55)
[2021-01-21] MEDS: Losartan Potassium 50 MG TABLET PO (07:55)
[2021-01-21] MEDS: Isosorbide Mononitrate 60 MG TAB.ER.24H PO (07:55)
[2021-01-21] MEDS: Gabapentin 600 MG TABLET PO ×3 (07:55→20:52)
[2021-01-21] MEDS: Aspirin Enteric Coated 81 MG TABLET.DR PO (07:55)
[2021-01-21] MEDS: Insulin Glargine,Hum.rec.anlog 100 UNIT/ML 10 ML VIAL 45 UNIT SUBCUT (07:56)
[2021-01-21] MEDS: Insulin Lispro 100 UNIT/ML 3 ML VIAL SUBCUT ×9 (07:56→20:53)
[2021-01-21] MEDS: Heparin Sodium,Porcine 5,000 UNIT/ML VIAL 5000 UNIT SUBCUT ×2 (07:57→20:52)
[2021-01-21] MEDS: 0.9 % Sodium Chloride Flush 3 ML SYRINGE IVFLUSH ×3 (07:58→20:57)
--- NOTE | 2021-01-21 10:22 | PM.PNNEP ---
Subjective Subjective Date of Service: 01/21/21 Principal diagnosis: IRINA on CKD Interval history: Events noted.No new issues Physical Exam Vital Signs: Vital Signs: Last Vital Signs Temp 98 F 01/21/21 07:01 Pulse 65 01/21/21 09:28 Resp 20 01/21/21 07:01 BP 115/52 L 01/21/21 09:28 Pulse Ox 94 01/21/21 07:01 Body Mass Index 48.2 Const: General: cooperative, alert and awake Orientation/consciousness: oriented to person Neck: Neck: Yes full ROM and Yes supple Resp: Effort & Inspection: normal respiratory effort Auscultation: clear to auscultation bilaterally Cardio: Jugular venous distension: no JVD Palpation: no palpable S4 Heart sounds: no rubs GI: Palpation (GI): Soft to palpation Auscultation: normal bowel sounds Neuro: General: oriented to person Motor exam (neuro): no asterixis Objective Data Labs CBC & Chem 7: 01/17/21 06:27 01/19/21 07:52 Labs: Laboratory Results - last 24 hr 01/20/21 01/20/21 01/20/21 11:03 16:14 20:02 POC Glucose 385 H* 309 H 233 H 01/21/21 07:01 POC Glucose 271 H Microbiology Microbiology Results: Microbiology 01/12/21 09:39 Blood - Venous Blood Culture - Final No growth after 5 days. 01/12/21 09:25 Blood - Venous Blood Culture - Final Coag negative Staphylococcus 01/12/21 00:00 Urine Catheterized - Straight Catheter Urine Culture - Final Strep agalactiae (Grp B) Escherichia coli Procedures Date of Service Date of Service: 01/21/21 Assessment & Plan Assessment and plan (1) CKD (chronic kidney disease) stage 4, GFR 15-29 ml/min: Status: Acute Assessment and Plan: (1) CKD (chronic kidney disease) stage 4, GFR 15-29 ml/min: ? ? 1. CKD 4: Scr cont decr to 1.7? at bsl;suspect DN/HTN renal dis 2. CAD: w/u by card and CCAth on hold and med Tx 3.DM 4. HTN: labile but better controlled today REC: cont RASi -added cozaar 01/19 now that CCath cancelled and track renal func; urine and sero ordered to r/o non-DM causes of CKD; -Although unlikely Continue to avoid NToxins Time Spent With Patient Time: Total time spent is greater than 50% in coordination of care (as documented) at patient's floor/unit and/or counseling patient: Time with patient: 15 - 24 minutes Progress Note: Quality Stroke Does the patient have a stroke diagnosis?: No
[2021-01-21 11:17] LABS: Glucose, Whole Blood 383 mg/dL (60-115)
[2021-01-21 14:04] LABS: COVID-19 Test Negative (Negative); IDNOW Serial# 9DD0AD1C
[2021-01-21] MEDS: oxyCODONE HCl Immed Release 5 MG TABLET PO ×2 (14:48→20:52)
--- NOTE | 2021-01-21 16:15 | MHC.CM.PN ---
still waiting [facility] auth dr youngblood notified of no dc today to [facility]
[2021-01-21 16:19] LABS: Glucose, Whole Blood 330 mg/dL (60-115)
--- NOTE | 2021-01-21 19:20 | PC.NURSE ---
stuart removed around 1600. [place] in place, dtv [phone]
[2021-01-21 20:44] LABS: Glucose, Whole Blood 337 mg/dL (60-115)
[2021-01-21] MEDS: Atorvastatin Calcium 80 MG TABLET PO (20:52)
[2021-01-22] VITALS (10 sets, daily range): BP systolic 107–140; BP diastolic 50–63; PULSE 63–72; RESP 18–20; TEMP 35.8–37; O2SAT 90–94
[2021-01-22] MEDS: Omeprazole 20 MG CAPSULE.DR PO (03:56)
[2021-01-22] MEDS: oxyCODONE HCl Immed Release 5 MG TABLET PO ×3 (03:56→18:43)
[2021-01-22 07:22] LABS: Glucose, Whole Blood 272 mg/dL (60-115)
[2021-01-22] MEDS: Insulin Lispro 100 UNIT/ML 3 ML VIAL SUBCUT ×8 (07:53→22:22)
[2021-01-22] MEDS: Heparin Sodium,Porcine 5,000 UNIT/ML VIAL 5000 UNIT SUBCUT ×2 (07:54→22:23)
[2021-01-22] MEDS: 0.9 % Sodium Chloride Flush 3 ML SYRINGE IVFLUSH ×3 (07:54→22:21)
[2021-01-22] MEDS: Insulin Glargine,Hum.rec.anlog 100 UNIT/ML 10 ML VIAL 45 UNIT SUBCUT (07:54)
[2021-01-22] MEDS: Losartan Potassium 50 MG TABLET PO (07:54)
[2021-01-22] MEDS: Gabapentin 600 MG TABLET PO ×3 (07:54→22:21)
[2021-01-22] MEDS: Metoprolol Tartrate 50 MG TABLET PO ×2 (07:54→22:21)
[2021-01-22] MEDS: amLODIPine Besylate 10 MG TABLET PO (07:55)
[2021-01-22] MEDS: Clopidogrel Bisulfate 75 MG TABLET PO (07:55)
[2021-01-22] MEDS: Isosorbide Mononitrate 60 MG TAB.ER.24H PO (07:55)
[2021-01-22] MEDS: Aspirin Enteric Coated 81 MG TABLET.DR PO (07:55)
--- NOTE | 2021-01-22 10:28 | PM.PNNEP ---
Subjective Subjective Date of Service: 01/23/21 Principal diagnosis: IRINA on CKD Interval history: Events noted.No new issues Resting comfortably Physical Exam Vital Signs: Vital Signs: Last Vital Signs Temp 97.9 F 01/22/21 07:52 Pulse 67 01/22/21 07:55 Resp 18 01/22/21 07:52 BP 140/53 H 01/22/21 07:55 Pulse Ox 92 01/22/21 07:52 Body Mass Index 48.2 Const: General: cooperative, alert and awake Orientation/consciousness: oriented to person Neck: Neck: Yes full ROM and Yes supple Resp: Effort & Inspection: normal respiratory effort Auscultation: clear to auscultation bilaterally Cardio: Jugular venous distension: no JVD Palpation: no palpable S4 Heart sounds: no rubs GI: Palpation (GI): Soft to palpation Auscultation: normal bowel sounds Neuro: General: oriented to person Motor exam (neuro): no asterixis Objective Data Labs CBC & Chem 7: 01/17/21 06:27 01/19/21 07:52 Labs: Laboratory Results - last 24 hr 01/21/21 01/21/21 01/21/21 11:08 13:15 16:15 POC Glucose 383 H* 330 H COVID-19 ([facility]) Negative COVID-19 Clin Com See Note 01/21/21 01/22/21 20:40 07:19 POC Glucose 337 H 272 H COVID-19 ([facility]) COVID-19 Clin Com Microbiology Microbiology Results: Microbiology 01/12/21 09:39 Blood - Venous Blood Culture - Final No growth after 5 days. 01/12/21 09:25 Blood - Venous Blood Culture - Final Coag negative Staphylococcus 01/12/21 00:00 Urine Catheterized - Straight Catheter Urine Culture - Final Strep agalactiae (Grp B) Escherichia coli Procedures Date of Service Date of Service: 01/22/21 Assessment & Plan Assessment and plan (1) CKD (chronic kidney disease) stage 4, GFR 15-29 ml/min: Status: Acute Assessment and Plan: (1) CKD (chronic kidney disease) stage 4, GFR 15-29 ml/min: ? ? 1. CKD 4: Scr cont decr to 1.7? at bsl;suspect DN/HTN renal dis 2. CAD: w/u by card and CCAth on hold and med Tx 3.DM 4. HTN: labile but better controlled today REC: cont RASi -added cozaar 01/19 now that [facility] cancelled and track renal func; urine and sero ordered to r/o non-DM causes of CKD; -Although unlikely Continue to avoid NToxins Shall arrange for out pt follow up Time Spent With Patient Time: Total time spent is greater than 50% in coordination of care (as documented) at patient's floor/unit and/or counseling patient: Time with patient: less than 15 minutes Progress Note: Quality Stroke Does the patient have a stroke diagnosis?: No
[2021-01-22 11:25] LABS: Glucose, Whole Blood 265 mg/dL (60-115)
--- NOTE | 2021-01-22 11:42 | HO.PM.IMPN ---
Subjective Subjective Date of Service: 01/22/21 Interval History: f/u on nstemi, remains stable, no cp no sob, still doesm't have rehab bed yet. Had stomach upset today Review of Systems no sob no chest pain no fever Physical Exam Vital Signs: Vital Signs: Last Vital Signs Temp 97.9 F 01/22/21 07:52 Pulse 67 01/22/21 07:55 Resp 18 01/22/21 07:52 BP 140/53 H 01/22/21 07:55 Pulse Ox 92 01/22/21 07:52 Body Mass Index 48.2 General: AO X 3, no acute distress Resp:? CTA bilateral CVS: S1,S2,RRR GI: +BS, NT, no distention Skin: No rash Neuro:? motor grossly intact Psych: appropriate affect ? Objective Data Active Medications Acetaminophen (Acetaminophen 325 Mg Tablet) 650 mg PO Q6H PRN PRN Reason: headaches Last Admin: 01/21/21 11:55 Dose: 650 mg Documented by: SIMA Amlodipine Besylate (Amlodipine Besylate 10 Mg Tablet) 10 mg PO DAILY [facility]; Protocol Last Admin: 01/22/21 07:55 Dose: 10 mg Documented by: BRISA Aspirin (Aspirin Enteric Coated 81 Mg Tablet.) 81 mg PO DAILY [facility] Last Admin: 01/22/21 07:55 Dose: 81 mg Documented by: BRISA Atorvastatin Calcium (Atorvastatin Calcium 80 Mg Tablet) 80 mg PO BEDTIME [facility] Last Admin: 01/21/21 20:52 Dose: 80 mg Documented by: IWONA Clopidogrel Bisulfate (Clopidogrel Bisulfate 75 Mg Tablet) 75 mg PO DAILY [facility] Last Admin: 01/22/21 07:55 Dose: 75 mg Documented by: BRISA Dextrose (Dextrose 50 % 25 Gm/50 Ml Vial) 25 gm IVPUSH Q15M PRN; Protocol PRN Reason: per Hypoglycemia Standing Ord. Gabapentin (Gabapentin 600 Mg Tablet) 600 mg PO TID [facility] Last Admin: 01/22/21 07:54 Dose: 600 mg Documented by: BRISA Glucose (Glucose Gel 15 Gm Gel..Gram.) 15 gm PO Q15M PRN; Protocol PRN Reason: per Hypoglycemia Standing Ord. Heparin Sodium (Porcine) (Heparin Sodium,Porcine 5,000 Unit/Ml Vial) 5,000 unit SUBCUT Q12H [facility] Last Admin: 01/22/21 07:54 Dose: 5,000 unit Documented by: BRISA Furosemide 200 mg/ Sodium (Chloride) 100 mls @ 5 mls/hr IVCONT .Q20H [facility] Insulin Glargine (Insulin Glargine,Hum.Rec.Anlog 100 Unit/Ml 10 Ml Vial) 45 unit SUBCUT DAILY [facility] Last Admin: 01/22/21 07:54 Dose: 45 unit Documented by: BRISA Insulin Human Lispro (Insulin Lispro 100 Unit/Ml 3 Ml Vial) 0 unit SUBCUT QIDACHS [facility]; Protocol Last Admin: 01/22/21 07:53 Dose: 6 unit Documented by: BRISA Insulin Human Lispro (Insulin Lispro 100 Unit/Ml 3 Ml Vial) 5 unit SUBCUT QIDACHS [facility] Last Admin: 01/22/21 07:53 Dose: 5 unit Documented by: BRISA Isosorbide Mononitrate (Isosorbide Mononitrate 60 Mg Tab.Er.24h) 60 mg PO DAILY [facility]; Protocol Last Admin: 01/22/21 07:55 Dose: 60 mg Documented by: BRISA Losartan Potassium (Losartan Potassium 50 Mg Tablet) 50 mg PO DAILY [facility]; Protocol Last Admin: 01/22/21 07:54 Dose: 50 mg Documented by: BRISA Magnesium Hydroxide (Milk Of Magnesia 30 Ml Oral.Susp) 30 ml PO DAILY PRN PRN Reason: Constipation Metoprolol Tartrate (Metoprolol Tartrate 50 Mg Tablet) 50 mg PO BID [facility]; Protocol Last Admin: 01/22/21 07:54 Dose: 50 mg Documented by: BRISA Omeprazole (Omeprazole 20 Mg Capsule.Dr) 20 mg PO DAILY@0630 [facility] Last Admin: 01/22/21 03:56 Dose: 20 mg Documented by: GIULIANO Oxycodone HCl (Oxycodone Hcl Immed Release 5 Mg Tablet) 5 mg PO Q6H PRN PRN Reason: Pain, Severe (Pain Scale 7-10) Last Admin: 01/22/21 11:21 Dose: 5 mg Documented by: BRISA Polyethylene Glycol (Polyethylene Glycol 3350 17 Gm Powd.Pack) 17 gm PO DAILY PRN PRN Reason: Constipation Last Admin: 01/14/21 15:49 Dose: 17 gm Documented by: ELIUD Sodium Chloride (0.9 % Sodium Chloride Flush 3 Ml Syringe) 3 ml IVFLUSH QSHIFT [facility] Last Admin: 01/22/21 07:54 Dose: 3 ml Documented by: BRISA Labs CBC & Chem 7: 01/17/21 06:27 01/19/21 07:52 Labs: Laboratory Results - last 24 hr 01/21/21 01/21/21 01/21/21 13:15 16:15 20:40 POC Glucose 330 H 337 H COVID-19 ([facility]) Negative COVID-19 Clin Com See Note 01/22/21 01/22/21 07:19 11:21 POC Glucose 272 H 265 H COVID-19 ([facility]) COVID-19 Clin Com Assessment and Plan (1) NSTEMI (non-ST elevated myocardial infarction): Status: Acute (2) CKD (chronic kidney disease): Status: Acute (3) HTN (hypertension): Status: Acute Assessment and Plan: 69-year-old female who came to the hospital because of chest pain, uncontrolled hypertension, uncontrolled diabetes, NSTEMI. 1. Sepsis/cellulitis of leg, clinically looks better and looks mostly chronic. completed course of Augmentin 2. NSTEMI completed heparin drip x 48 hrs continue Plavix, bb, statin stress test showed: 1.? Myocardial perfusion imaging study shows septal and apical ischemia in mid to distal LAD territory 2.? Gated LVEF is 59% with stress and 66% with stress 3. Transient ischemic dilatation present Cardilogy recommend optimization of medical therapy 3.Hypertension: continue Metoprolol 50 bid, norasc 10 qd, incrase losartan to 50 daily 4. Diabetes, uncontrolled, (at home humaglog 50 tid), continue Lantus, incrase to 55 and continue SSI, and pre meal insulin monitor sugars, FBS was 272 5. Right leg x-ray shows fracture of distal tibia and fibula ? ,talus laterally displaced-moves right and left extermity fine , no pain, chronic changes from injury 3 years ago. Outpatient f/u 6. UTI--completed Abx course 7. ckd 3 stable. to rehab today when bed available\ Stomach upset, observe if worse or persitent will image her brother -Mr Bob hernandez is [phone]( home ), ). Quality Stroke Does the patient have a stroke diagnosis?: No VTE Prior VTE?: No VTE Risk Level:: Medical - moderate - high VTE Device Contraindication: N/A - Device Ordered VTE Drug Contraindication: N/A - Med Ordered
--- NOTE | 2021-01-22 12:09 | MHC.CLN ---
F/U PO INTAKE 100% X 3 DAYS DIET RX: 1800 DM 2GM NA-APPROPRIATE PT RECEIVING GLUCERNA BID TO INCREASE PROTEIN FOR WOUND HEALING SUPPLEMENT PROVIDES 474KCALS, 20G PROTEIN CONTINUE TO MONITOR PO INTAKE
[2021-01-22] MEDS: ondansetron HCL 4 MG/2 ML VIAL IVPUSH (13:58)
--- NOTE | 2021-01-22 14:23 | MHC.CM.PN ---
tolu [place] ready no auth from [facility] yet
[2021-01-22 16:34] LABS: Glucose, Whole Blood 238 mg/dL (60-115)
[2021-01-22 20:22] LABS: Glucose, Whole Blood 245 mg/dL (60-115)
[2021-01-22] MEDS: Atorvastatin Calcium 80 MG TABLET PO (22:21)
[2021-01-22] MEDS: Acetaminophen 325 MG TABLET 650 MG PO (22:33)
[2021-01-23] VITALS (8 sets, daily range): BP systolic 98–154; BP diastolic 44–67; PULSE 66–112; RESP 18–20; TEMP 36.2–37.7; O2SAT 90–97
--- NOTE | 2021-01-23 | ECG_ITS ---
Test Reason : hyperkalemia Blood Pressure : / mmHG Vent. Rate : 073 BPM Atrial Rate : 073 BPM P-R Int : 216 ms QRS Dur : 090 ms QT Int : 386 ms P-R-T Axes : 056 -02 007 degrees QTc Int : 425 ms Sinus rhythm with 1st degree A-V block Nonspecific ST abnormality Abnormal ECG No significant changes seen Referred By: [facility] Electronically Signed By:MARGIE HARRINGTON MD
[2021-01-23] MEDS: oxyCODONE HCl Immed Release 5 MG TABLET PO ×3 (04:35→23:38)
[2021-01-23] MEDS: Omeprazole 20 MG CAPSULE.DR PO (04:36)
[2021-01-23] MEDS: ondansetron HCL 4 MG/2 ML VIAL IVPUSH (06:15)
[2021-01-23 07:27] LABS: Glucose, Whole Blood 269 mg/dL (60-115)
[2021-01-23] MEDS: Gabapentin 600 MG TABLET PO (07:47)
[2021-01-23] MEDS: Aspirin Enteric Coated 81 MG TABLET.DR PO (07:47)
[2021-01-23] MEDS: Clopidogrel Bisulfate 75 MG TABLET PO (07:47)
[2021-01-23] MEDS: Heparin Sodium,Porcine 5,000 UNIT/ML VIAL 5000 UNIT SUBCUT ×2 (07:51→21:24)
[2021-01-23] MEDS: Insulin Lispro 100 UNIT/ML 3 ML VIAL SUBCUT ×6 (07:55→16:19)
[2021-01-23] MEDS: 0.9 % Sodium Chloride Flush 3 ML SYRINGE IVFLUSH ×2 (07:56→21:25)
[2021-01-23] MEDS: Insulin Glargine,Hum.rec.anlog 100 UNIT/ML 10 ML VIAL 45 UNIT SUBCUT (07:56)
--- NOTE | 2021-01-23 09:31 | MHC.CM.PN ---
Addendum entered by Sharon Wahl 01/23/21 14:48: CM INFORMED PTS DC WILL BE HELD. CC INFORMED VIA [employer] Addendum entered by Sharon Wahl 01/23/21 11:34: PT INFORMED OF INSURANCE AUTH FOR STR HOWEVER PT NOW REPORTS SHE IS NOT FEELING WELL. INFORMED. Original Note: CM INFORMED CC HAS INSURANCE AUTH FOR PT TO STEP DOWN TO STR LOC. PT WILL DC TODAY (TIME TBD) TO [facility] FOR STR VIA BLS
[2021-01-23] MEDS: Isosorbide Mononitrate 60 MG TAB.ER.24H PO (10:04)
[2021-01-23] MEDS: Losartan Potassium 50 MG TABLET PO (10:05)
[2021-01-23] MEDS: Metoprolol Tartrate 50 MG TABLET PO ×2 (10:05→21:24)
[2021-01-23 11:03] LABS: Glucose, Whole Blood 273 mg/dL (60-115)
[2021-01-23 12:55] LABS: Hematocrit 37.6 % (37-47); Hemoglobin 11.8 g/dl (12.0-16.0); Mean Corpuscular HGB Conc 31.4 g/dl (31.0-35.0); Mean Corpuscular Hemoglobin 29.9 pg (27.0-33.0); Mean Corpuscular Volume 95.4 fL (80-98); Mean Platelet Volume 11.8 fL (9.4-12.3); Platelet Count 294 X10*3/uL (160-400); Red Blood Count 3.94 X10*6/uL (4.20-5.50); White Blood Count 10.9 X10*3/uL (4.8-10.8)
[2021-01-23 13:13] LABS: Magnesium 2.4 mg/dL (1.6-2.6); Phosphorus 4.9 mg/dL (2.7-4.5)
[2021-01-23 13:28] LABS: COVID-19 Test Negative (Negative)
[2021-01-23 13:30] LABS: Anion Gap 15 (12-20); Blood Urea Nitrogen 60 mg/dL (9-16); Calcium 7.8 mg/dL (8.4-10.2); Carbon Dioxide 22 mmol/L (22-29); Chloride 102 mmol/L (96-108); Creatinine Clr Calc Pharmacy 28.4; Estimated Glomerular Filt Rate 18; Glucose Random 280 mg/dL (60-115); Sodium 133 mmol/L (135-145)
[2021-01-23] MEDS: 0.9 % Sodium Chloride 1,000 ML 75 ML IVCONT (14:03)
[2021-01-23] MEDS: Sodium Zirconium Cyclosilicate 10 GM POWD.PACK PO ×2 (14:12→22:50)
[2021-01-23 16:03] LABS: Glucose, Whole Blood 232 mg/dL (60-115)
[2021-01-23 20:13] LABS: Glucose, Whole Blood 168 mg/dL (60-115)
--- NOTE | 2021-01-23 20:44 | HO.PM.IMPN ---
Subjective Subjective Date of Service: 01/24/21 Interval History: f/u stemi, renal failure. Patieent seem [place] today, labs shows worsening renal failure high potassium Review of Systems Gen: no fever Resp: no sob, no cough CV: no chest, no FLORES, no leg edema GI: No n/v, no abd pain Neuro: slight confusion Physical Exam Vital Signs: Vital Signs: Last Vital Signs Temp 98.7 F 01/23/21 19:28 Pulse 86 01/23/21 19:28 Resp 18 01/23/21 19:28 BP 98/46 L 01/23/21 19:28 Pulse Ox 97 01/23/21 19:28 Body Mass Index 48.2 General: AO X 3, no acute distress Resp:? CTA bilateral CVS: S1,S2,RRR GI: +BS, NT, no distention Skin: No rash Neuro:? motor grossly intact Psych: appropriate affect Objective Data Active Medications Acetaminophen (Acetaminophen 325 Mg Tablet) 650 mg PO Q6H PRN PRN Reason: headaches Last Admin: 01/22/21 22:33 Dose: 650 mg Documented by: VVI Amlodipine Besylate (Amlodipine Besylate 10 Mg Tablet) 10 mg PO DAILY [facility]; Protocol Last Admin: 01/23/21 10:06 Dose: Not Given Documented by: ALONZO Non-Admin Reason: Physician Held Med Aspirin (Aspirin Enteric Coated 81 Mg Tablet.) 81 mg PO DAILY [facility] Last Admin: 01/23/21 07:47 Dose: 81 mg Documented by: NESTOR Atorvastatin Calcium (Atorvastatin Calcium 80 Mg Tablet) 80 mg PO BEDTIME [facility] Last Admin: 01/22/21 22:21 Dose: 80 mg Documented by: VIV Clopidogrel Bisulfate (Clopidogrel Bisulfate 75 Mg Tablet) 75 mg PO DAILY [facility] Last Admin: 01/23/21 07:47 Dose: 75 mg Documented by: NESTOR Dextrose (Dextrose 50 % 25 Gm/50 Ml Vial) 25 gm IVPUSH Q15M PRN; Protocol PRN Reason: per Hypoglycemia Standing Ord. Glucose (Glucose Gel 15 Gm Gel..Gram.) 15 gm PO Q15M PRN; Protocol PRN Reason: per Hypoglycemia Standing Ord. Heparin Sodium (Porcine) (Heparin Sodium,Porcine 5,000 Unit/Ml Vial) 5,000 unit SUBCUT Q12H [facility] Last Admin: 01/23/21 07:51 Dose: 5,000 unit Documented by: NESTOR Sodium Chloride (Ns) 1,000 mls @ 75 mls/hr IVCONT .[id number] [facility] Last Admin: 01/23/21 14:03 Dose: 75 mls/hr Documented by: NESTOR Insulin Glargine (Insulin Glargine,Hum.Rec.Anlog 100 Unit/Ml 10 Ml Vial) 45 unit SUBCUT DAILY [facility] Last Admin: 01/23/21 07:56 Dose: 45 unit Documented by: NESTOR Insulin Human Lispro (Insulin Lispro 100 Unit/Ml 3 Ml Vial) 0 unit SUBCUT QIDACHS [facility]; Protocol Last Admin: 01/23/21 20:17 Dose: Not Given Documented by: JAVIER Non-Admin Reason: No Insulin Coverage Insulin Human Lispro (Insulin Lispro 100 Unit/Ml 3 Ml Vial) 5 unit SUBCUT QIDACHS [facility] Last Admin: 01/23/21 16:19 Dose: 5 unit Documented by: NESTOR Isosorbide Mononitrate (Isosorbide Mononitrate 60 Mg Tab.Er.24h) 60 mg PO DAILY [facility]; Protocol Last Admin: 01/23/21 10:04 Dose: 60 mg Documented by: ALONZO Magnesium Hydroxide (Milk Of Magnesia 30 Ml Oral.Susp) 30 ml PO DAILY PRN PRN Reason: Constipation Metoprolol Tartrate (Metoprolol Tartrate 50 Mg Tablet) 50 mg PO BID [facility]; Protocol Last Admin: 01/23/21 10:05 Dose: 50 mg Documented by: ALONZO Omeprazole (Omeprazole 20 Mg Capsule.Dr) 20 mg PO DAILY@0630 [facility] Last Admin: 01/23/21 04:36 Dose: 20 mg Documented by: VIV Ondansetron HCl (Ondansetron Hcl 4 Mg/2 Ml Vial) 4 mg IVPUSH Q8H PRN PRN Reason: Nausea and Vomiting Last Admin: 01/23/21 06:15 Dose: 4 mg Documented by: VIV Oxycodone HCl (Oxycodone Hcl Immed Release 5 Mg Tablet) 5 mg PO Q6H PRN PRN Reason: Pain, Severe (Pain Scale 7-10) Last Admin: 01/23/21 17:18 Dose: 5 mg Documented by: NESTOR Polyethylene Glycol (Polyethylene Glycol 3350 17 Gm Powd.Pack) 17 gm PO DAILY PRN PRN Reason: Constipation Last Admin: 01/14/21 15:49 Dose: 17 gm Documented by: ELIUD Sodium Chloride (0.9 % Sodium Chloride Flush 3 Ml Syringe) 3 ml IVFLUSH QSHIFT [facility] Last Admin: 01/23/21 16:21 Dose: Not Given Documented by: NESTOR Non-Admin Reason: IV Running Labs CBC & Chem 7: 01/23/21 12:48 01/24/21 08:21 Labs: Laboratory Results - last 24 hr 01/23/21 01/23/21 01/23/21 07:23 10:59 12:48 MCV 95.4 MCH 29.9 MCHC 31.4 RDW 14.0 Plt Count 294 MPV 11.8 Absolute Nucleated RBC 0.000 Nucleated RBC % (auto) 0.0 Anion Gap Estim Creat Clear Calc Estimated GFR POC Glucose 269 H 273 H Random Glucose Calcium Phosphorus Magnesium COVID-19 ([facility]) COVID-19 Clin Com 01/23/21 01/23/21 01/23/21 12:48 13:00 15:57 MCV MCH MCHC RDW Plt Count MPV Absolute Nucleated RBC Nucleated RBC % (auto) Anion Gap 15 Estim Creat Clear Calc 28.4 Estimated GFR 18 POC Glucose 232 H Random Glucose 280 H Calcium 7.8 L Phosphorus 4.9 H Magnesium 2.4 COVID-19 ([facility]) Negative COVID-19 Clin Com See Note 01/23/21 20:10 MCV MCH MCHC RDW Plt Count MPV Absolute Nucleated RBC Nucleated RBC % (auto) Anion Gap Estim Creat Clear Calc Estimated GFR POC Glucose 168 H Random Glucose Calcium Phosphorus Magnesium COVID-19 ([facility]) COVID-19 Clin Com Assessment and Plan (1) NSTEMI (non-ST elevated myocardial infarction): Status: Acute (2) CKD (chronic kidney disease): Status: Acute (3) HTN (hypertension): Status: Acute Assessment and Plan: 69-year-old female who came to the hospital because of chest pain, uncontrolled hypertension, uncontrolled diabetes, NSTEMI. IRINA on CKD---likely pre renal worse wit losartant -hold diuretic and ARB -IVF -reconsult nephrology Hyperkalemia d.t renal failure and ARB -Lokelma, insulin, ECG # Sepsis/cellulitis of leg, clinically looks better and looks mostly chronic. completed course of Augmentin #NSTEMI completed heparin drip x 48 hrs continue Plavix, bb, statin stress test showed: 1.? Myocardial perfusion imaging study shows septal and apical ischemia in mid to distal LAD territory 2.? Gated LVEF is 59% with stress and 66% with stress 3. Transient ischemic dilatation present Cardilogy recommend optimization of medical therapy #Hypertension: continue Metoprolol 50 bid, norasc 10 qd. stop Losartan d/t low bP and hyperkalemia #Diabetes, uncontrolled, (at home humaglog 50 tid), continue Lantus, incrase to 55 and continue SSI, and pre meal insulin monitor sugars, FBS was 272 #Right leg x-ray shows fracture of distal tibia and fibula ? ,talus laterally displaced-moves right and left extermity fine , no pain, chronic changes from injury 3 years ago. Outpatient f/u # UTI--completed Abx course #. ckd 3 stable eith IRINA, IVF, Nephro consult #Mild confusion, likely d/t gabaptentin in setting of renal failure, stop gabapentin and monitor #Stomach upset, observe if worse or persitent will image, resolve # raw bottom, d/t imobility and diarrhea, frequent turning, request air loss mattress wound nurse eval, wound care consult. Air Loss bed her brother -Mr Rojas no is [phone]( home ), ). Quality Stroke Does the patient have a stroke diagnosis?: No VTE Prior VTE?: No VTE Risk Level:: Medical - moderate - high VTE Device Contraindication: N/A - Device Ordered VTE Drug Contraindication: N/A - Med Ordered
[2021-01-23 21:20] LABS: Potassium 5.6 mmol/L (3.3-5.1)
[2021-01-23] MEDS: Atorvastatin Calcium 80 MG TABLET PO (21:24)
[2021-01-24] VITALS (10 sets, daily range): BP systolic 120–134; BP diastolic 44–89; PULSE 66–96; RESP 18–20; TEMP 36.2–37; O2SAT 90–94
[2021-01-24] MEDS: 0.9 % Sodium Chloride 1,000 ML 75 ML IVCONT ×2 (05:39→17:46)
[2021-01-24] MEDS: Omeprazole 20 MG CAPSULE.DR PO (05:39)
[2021-01-24 07:43] LABS: Glucose, Whole Blood 280 mg/dL (60-115)
[2021-01-24 07:49] LABS: Appearance Urine CLOUDY; Color Urine YELLOW; Glucose Urine UA NEG (NEG); Leukocyte Esterase Urine 3+ (NEG); Nitrite Urine NEG (NEG); PH 5.5 (5.0-8.0); Urine Blood 1+ (NEG); Urine Ketones NEG (NEG); Urine Protein 1+ MG/DL (NEG-TRACE)
[2021-01-24 07:58] LABS: Bacteria Urine TRACE /LPF; Squamous Epithelial Cell Urine TRACE /LPF; WBC Urine 50-75 /HPF (0-4)
[2021-01-24 09:01] LABS: Anion Gap 16 (12-20); Blood Urea Nitrogen 60 mg/dL (9-16); Calcium 7.8 mg/dL (8.4-10.2); Carbon Dioxide 18 mmol/L (22-29); Chloride 104 mmol/L (96-108); Creatinine Clr Calc Pharmacy 26.9; Estimated Glomerular Filt Rate 17; Glucose Random 311 mg/dL (60-115); Potassium 6.1 mmol/L (3.3-5.1); Sodium 132 mmol/L (135-145)
[2021-01-24] MEDS: Isosorbide Mononitrate 60 MG TAB.ER.24H PO (09:15)
[2021-01-24] MEDS: Metoprolol Tartrate 50 MG TABLET PO ×2 (09:15→22:29)
[2021-01-24] MEDS: oxyCODONE HCl Immed Release 5 MG TABLET PO ×2 (09:20→22:29)
[2021-01-24] MEDS: Clopidogrel Bisulfate 75 MG TABLET PO (09:21)
[2021-01-24] MEDS: amLODIPine Besylate 10 MG TABLET PO (09:22)
[2021-01-24] MEDS: Aspirin Enteric Coated 81 MG TABLET.DR PO (09:22)
[2021-01-24] MEDS: Insulin Lispro 100 UNIT/ML 3 ML VIAL 15 UNIT SUBCUT (09:30)
[2021-01-24] MEDS: Heparin Sodium,Porcine 5,000 UNIT/ML VIAL 5000 UNIT SUBCUT ×2 (09:31→22:30)
[2021-01-24] MEDS: 0.9 % Sodium Chloride Flush 3 ML SYRINGE IVFLUSH ×3 (09:31→22:31)
[2021-01-24] MEDS: Calcium Gluconate/NaCl,Iso-Osm 1 GM/50 ML PLAST..BAG IV (09:32)
[2021-01-24] MEDS: Insulin Glargine,Hum.rec.anlog 100 UNIT/ML 10 ML VIAL 45 UNIT SUBCUT (09:35)
--- NOTE | 2021-01-24 09:59 | PM.PNNEP ---
Subjective Subjective Date of Service: 02/10/21 Principal diagnosis: IRINA on CKD Interval history: Ki sis up S/p Lokelma Mild acidosis COnstipation Back-sore Physical Exam Vital Signs: Vital Signs: Last Vital Signs Temp 98.6 F 01/24/21 07:06 Pulse 96 01/24/21 09:33 Resp 18 01/24/21 07:06 BP 134/89 01/24/21 09:33 Pulse Ox 92 01/24/21 07:06 Body Mass Index 48.2 Const: General: cooperative, alert and awake Orientation/consciousness: oriented to person Neck: Neck: Yes full ROM and Yes supple Resp: Effort & Inspection: normal respiratory effort Auscultation: clear to auscultation bilaterally Cardio: Jugular venous distension: no JVD Palpation: no palpable S4 Heart sounds: no rubs GI: Palpation (GI): Soft to palpation Auscultation: normal bowel sounds Neuro: General: oriented to person Motor exam (neuro): no asterixis Objective Data Labs CBC & Chem 7: 01/23/21 12:48 01/27/21 06:06 Labs: Laboratory Results - last 24 hr 01/23/21 01/23/21 01/23/21 10:59 12:48 12:48 WBC 10.9 H RBC 3.94 L Hgb 11.8 L Hct 37.6 MCV 95.4 MCH 29.9 MCHC 31.4 RDW 14.0 Plt Count 294 MPV 11.8 Absolute Nucleated RBC 0.000 Nucleated RBC % (auto) 0.0 Sodium 133 L Potassium 6.0 H* D Chloride 102 Carbon Dioxide 22 Anion Gap 15 BUN 60 H D Creatinine 2.57 H Estim Creat Clear Calc 28.4 Estimated GFR 18 POC Glucose 273 H Random Glucose 280 H Calcium 7.8 L Phosphorus 4.9 H Magnesium 2.4 Urine Color Urine Appearance Urine pH Ur Specific [place] Urine Protein Urine Glucose (UA) Urine Ketones Urine Blood Urine Nitrite Ur Leukocyte Esterase Urine RBC Urine WBC Ur Squamous Epith Cells Urine Bacteria Urine Yeast COVID-19 ([facility]) COVID-19 Clin Com 01/23/21 01/23/21 01/23/21 13:00 15:57 20:10 WBC RBC Hgb Hct MCV MCH MCHC RDW Plt Count MPV Absolute Nucleated RBC Nucleated RBC % (auto) Sodium Potassium Chloride Carbon Dioxide Anion Gap BUN Creatinine Estim Creat Clear Calc Estimated GFR POC Glucose 232 H 168 H Random Glucose Calcium Phosphorus Magnesium Urine Color Urine Appearance Urine pH Ur Specific [place] Urine Protein Urine Glucose (UA) Urine Ketones Urine Blood Urine Nitrite Ur Leukocyte Esterase Urine RBC Urine WBC Ur Squamous Epith Cells Urine Bacteria Urine Yeast COVID-19 ([facility]) Negative COVID-19 Clin Com See Note 01/23/21 01/24/21 01/24/21 21:01 07:10 07:30 WBC RBC Hgb Hct MCV MCH MCHC RDW Plt Count MPV Absolute Nucleated RBC Nucleated RBC % (auto) Sodium Potassium 5.6 H Chloride Carbon Dioxide Anion Gap BUN Creatinine Estim Creat Clear Calc Estimated GFR POC Glucose 280 H Random Glucose Calcium Phosphorus Magnesium Urine Color YELLOW Urine Appearance CLOUDY Urine pH 5.5 Ur Specific [place] 1.020 Urine Protein 1+ H Urine Glucose (UA) NEG Urine Ketones NEG Urine Blood 1+ H Urine Nitrite NEG Ur Leukocyte Esterase 3+ H Urine RBC 1-4 Urine WBC 50-75 H Ur Squamous Epith Cells TRACE Urine Bacteria TRACE Urine Yeast 3+ COVID-19 ([facility]) COVID-19 Clin Com 01/24/21 08:21 WBC RBC Hgb Hct MCV MCH MCHC RDW Plt Count MPV Absolute Nucleated RBC Nucleated RBC % (auto) Sodium 132 L Potassium 6.1 H* Chloride 104 Carbon Dioxide 18 L Anion Gap 16 BUN 60 H Creatinine 2.71 H Estim Creat Clear Calc 26.9 Estimated GFR 17 POC Glucose Random Glucose 311 H Calcium 7.8 L Phosphorus Magnesium Urine Color Urine Appearance Urine pH Ur Specific [place] Urine Protein Urine Glucose (UA) Urine Ketones Urine Blood Urine Nitrite Ur Leukocyte Esterase Urine RBC Urine WBC Ur Squamous Epith Cells Urine Bacteria Urine Yeast COVID-19 ([facility]) COVID-19 Clin Com Microbiology Microbiology Results: Microbiology 01/12/21 09:39 Blood - Venous Blood Culture - Final No growth after 5 days. 01/12/21 09:25 Blood - Venous Blood Culture - Final Coag negative Staphylococcus 01/12/21 00:00 Urine Catheterized - Straight Catheter Urine Culture - Final Strep agalactiae (Grp B) Escherichia coli Procedures Date of Service Date of Service: 01/24/21 Assessment & Plan Assessment and plan (1) CKD (chronic kidney disease) stage 4, GFR 15-29 ml/min: Assessment and Plan: (1) CKD (chronic kidney disease) stage 4, GFR 15-29 ml/min: ? ? 1. CKD 4: Scr cont decr to 1.7? at bsl;suspect DN/HTN renal dis 2. CAD: w/u by card and CCAth on hold and med Tx 3.DM 4. HTN: labile but better controlled today 5. Type IV RTA REC: cont RASi -added cozaar 01/19 now that [facility] cancelled and track renal func; urine and sero ordered to r/o non-DM causes of CKD; -Although unlikely Keep I > O with IVF Agree with Kamran Add PO NaHCO3 Continue to avoid NToxins Shall arrange for out pt follow up Time Spent With Patient Time: Total time spent is greater than 50% in coordination of care (as documented) at patient's floor/unit and/or counseling patient: Time with patient: 15 - 24 minutes Progress Note: Quality Stroke Does the patient have a stroke diagnosis?: No
--- NOTE | 2021-01-24 10:22 | PC.NURSE ---
Skin assessment completed. Patient has stage 2 pressure ulcer to left stump, Triad applied covered with non woven gauze and roll gauze. Patient also has incontinent skin damage from 6 days of diarrhea which now extends to lower back indentation lower back indentation. and to buttocks and inner thighs. Triad applied to all areas and a foam dressing covers the lower back. No other skin issues at this time.
--- NOTE | 2021-01-24 10:26 | HO.PM.IMPN ---
Subjective Subjective Date of Service: 01/25/21 Interval History: f/u on renal failure, hi k Review of Systems Gen: no fever Resp: no sob, no cough CV: no chest, no FLORES, no leg edema GI: No n/v, no abd pain Neuro: slight confusion Physical Exam Vital Signs: Vital Signs: Last Vital Signs Temp 98.6 F 01/24/21 07:06 Pulse 96 01/24/21 09:33 Resp 18 01/24/21 07:06 BP 134/89 01/24/21 09:33 Pulse Ox 92 01/24/21 07:06 Body Mass Index 48.2 Objective Data Active Medications Acetaminophen (Acetaminophen 325 Mg Tablet) 650 mg PO Q6H PRN PRN Reason: headaches Last Admin: 01/22/21 22:33 Dose: 650 mg Documented by: VIV Amlodipine Besylate (Amlodipine Besylate 10 Mg Tablet) 10 mg PO DAILY [facility]; Protocol Last Admin: 01/24/21 09:22 Dose: 10 mg Documented by: BENNY Aspirin (Aspirin Enteric Coated 81 Mg Tablet.) 81 mg PO DAILY [facility] Last Admin: 01/24/21 09:22 Dose: 81 mg Documented by: BENNY Atorvastatin Calcium (Atorvastatin Calcium 80 Mg Tablet) 80 mg PO BEDTIME [facility] Last Admin: 01/23/21 21:24 Dose: 80 mg Documented by: JAVIER Clopidogrel Bisulfate (Clopidogrel Bisulfate 75 Mg Tablet) 75 mg PO DAILY [facility] Last Admin: 01/24/21 09:21 Dose: 75 mg Documented by: BENNY Dextrose (Dextrose 50 % 25 Gm/50 Ml Vial) 25 gm IVPUSH Q15M PRN; Protocol PRN Reason: per Hypoglycemia Standing Ord. Glucose (Glucose Gel 15 Gm Gel..Gram.) 15 gm PO Q15M PRN; Protocol PRN Reason: per Hypoglycemia Standing Ord. Heparin Sodium (Porcine) (Heparin Sodium,Porcine 5,000 Unit/Ml Vial) 5,000 unit SUBCUT Q12H [facility] Last Admin: 01/24/21 09:31 Dose: 5,000 unit Documented by: BENNY Sodium Chloride (Ns) 1,000 mls @ 75 mls/hr IVCONT .[id number] [facility] Last Admin: 01/24/21 05:39 Dose: 75 mls/hr Documented by: NELDA Insulin Glargine (Insulin Glargine,Hum.Rec.Anlog 100 Unit/Ml 10 Ml Vial) 45 unit SUBCUT DAILY [facility] Last Admin: 01/24/21 09:35 Dose: 45 unit Documented by: BENNY Insulin Human Lispro (Insulin Lispro 100 Unit/Ml 3 Ml Vial) 0 unit SUBCUT QIDACHS [facility]; Protocol Last Admin: 01/24/21 09:32 Dose: Not Given Documented by: BENNY Non-Admin Reason: Physician Held Med Comments: gave 15 units instead, r/t hyperkalemia Insulin Human Lispro (Insulin Lispro 100 Unit/Ml 3 Ml Vial) 5 unit SUBCUT QIDACHS [facility] Last Admin: 01/24/21 09:32 Dose: Not Given Documented by: BENNY Non-Admin Reason: Physician Held Med Comments: gave 15 units instead r/t hyperkalemia Isosorbide Mononitrate (Isosorbide Mononitrate 60 Mg Tab.Er.24h) 60 mg PO DAILY [facility]; Protocol Last Admin: 01/24/21 09:15 Dose: 60 mg Documented by: BENNY Magnesium Hydroxide (Milk Of Magnesia 30 Ml Oral.Susp) 30 ml PO DAILY PRN PRN Reason: Constipation Metoprolol Tartrate (Metoprolol Tartrate 50 Mg Tablet) 50 mg PO BID [facility]; Protocol Last Admin: 01/24/21 09:15 Dose: 50 mg Documented by: BENNY Omeprazole (Omeprazole 20 Mg Capsule.Dr) 20 mg PO DAILY@0630 [facility] Last Admin: 01/24/21 05:39 Dose: 20 mg Documented by: NELDA Ondansetron HCl (Ondansetron Hcl 4 Mg/2 Ml Vial) 4 mg IVPUSH Q8H PRN PRN Reason: Nausea and Vomiting Last Admin: 01/23/21 06:15 Dose: 4 mg Documented by: VIV Oxycodone HCl (Oxycodone Hcl Immed Release 5 Mg Tablet) 5 mg PO Q6H PRN PRN Reason: Pain, Severe (Pain Scale 7-10) Last Admin: 01/24/21 09:20 Dose: 5 mg Documented by: BENNY Polyethylene Glycol (Polyethylene Glycol 3350 17 Gm Powd.Pack) 17 gm PO DAILY PRN PRN Reason: Constipation Last Admin: 01/14/21 15:49 Dose: 17 gm Documented by: ELIUD Sodium Bicarbonate (Sodium Bicarbonate 650 Mg Tablet) 650 mg PO TID JILLIAN Sodium Chloride (0.9 % Sodium Chloride Flush 3 Ml Syringe) 3 ml IVFLUSH QSHIFT JILLIAN Last Admin: 01/24/21 09:31 Dose: 3 ml Documented by: BENNY Labs CBC & Chem 7: 01/23/21 12:48 01/25/21 06:15 Labs: Laboratory Results - last 24 hr 01/23/21 01/23/21 01/23/21 10:59 12:48 12:48 MCV 95.4 MCH 29.9 MCHC 31.4 RDW 14.0 Plt Count 294 MPV 11.8 Absolute Nucleated RBC 0.000 Nucleated RBC % (auto) 0.0 Anion Gap 15 Estim Creat Clear Calc 28.4 Estimated GFR 18 POC Glucose 273 H Random Glucose 280 H Calcium 7.8 L Phosphorus 4.9 H Magnesium 2.4 Urine Color Urine Appearance Urine pH Ur Specific [place] Urine Protein Urine Glucose (UA) Urine Ketones Urine Blood Urine Nitrite Ur Leukocyte Esterase Urine RBC Urine WBC Ur Squamous Epith Cells Urine Bacteria Urine Yeast COVID-19 ([facility]) COVID-19 Clin Com 01/23/21 01/23/21 01/23/21 13:00 15:57 20:10 MCV MCH MCHC RDW Plt Count MPV Absolute Nucleated RBC Nucleated RBC % (auto) Anion Gap Estim Creat Clear Calc Estimated GFR POC Glucose 232 H 168 H Random Glucose Calcium Phosphorus Magnesium Urine Color Urine Appearance Urine pH Ur Specific [place] Urine Protein Urine Glucose (UA) Urine Ketones Urine Blood Urine Nitrite Ur Leukocyte Esterase Urine RBC Urine WBC Ur Squamous Epith Cells Urine Bacteria Urine Yeast COVID-19 ([facility]) Negative COVID-19 Clin Com See Note 01/24/21 01/24/21 01/24/21 07:10 07:30 08:21 MCV MCH MCHC RDW Plt Count MPV Absolute Nucleated RBC Nucleated RBC % (auto) Anion Gap 16 Estim Creat Clear Calc 26.9 Estimated GFR 17 POC Glucose 280 H Random Glucose 311 H Calcium 7.8 L Phosphorus Magnesium Urine Color YELLOW Urine Appearance CLOUDY Urine pH 5.5 Ur Specific [place] 1.020 Urine Protein 1+ H Urine Glucose (UA) NEG Urine Ketones NEG Urine Blood 1+ H Urine Nitrite NEG Ur Leukocyte Esterase 3+ H Urine RBC 1-4 Urine WBC 50-75 H Ur Squamous Epith Cells TRACE Urine Bacteria TRACE Urine Yeast 3+ COVID-19 ([facility]) COVID-19 Clin Com Assessment and Plan (1) IRINA (acute kidney injury): Status: Acute Assessment and Plan: 69-year-old female who came to the hospital because of chest pain, uncontrolled hypertension, uncontrolled diabetes, NSTEMI. IRINA on CKD---likely pre renal worse wit losartant -hold diuretic and ARB -IVF gently -Nephrology follsoing Hyperkalemia d.t renal failure and ARB, may have RTA4 -K is still high following 2 doses of Lokelma, no bm -calcioum gluocnate, insulin, lactulose and repeat ECG # Sepsis/cellulitis of leg, clinically looks better and looks mostly chronic.---resolved completed course of Augmentin #NSTEMI completed heparin drip x 48 hrs continue Plavix, bb, statin stress test showed: 1.? Myocardial perfusion imaging study shows septal and apical ischemia in mid to distal LAD territory 2.? Gated LVEF is 59% with stress and 66% with stress 3. Transient ischemic dilatation present Cardilogy recommend optimization of medical therapy #Hypertension: continue Metoprolol 50 bid, norasc 10 qd. stop Losartan d/t low bP and hyperkalemia #Diabetes, uncontrolled, (at home humaglog 50 tid), continue Lantus, incrase to 55 and continue SSI, and pre meal insulin monitor sugars, FBS was 272 #Right leg x-ray shows fracture of distal tibia and fibula ? ,talus laterally displaced-moves right and left extermity fine , no pain, chronic changes from injury 3 years ago. Outpatient f/u # UTI--completed Abx course #. ckd 3 stable eith IRINA, IVF, Nephro consult #Mild confusion, likely d/t gabaptentin in setting of renal failure, stop gabapentin and monitor #Stomach upset, observe if worse or persitent will image, resolve # raw bottom, d/t imobility and diarrhea, frequent turning, request air loss mattress wound nurse randi, wound care consult. Air Loss bed her brother -Mr Rojas no is [phone]( home ), ). Quality Stroke Does the patient have a stroke diagnosis?: No VTE Prior VTE?: No VTE Risk Level:: Medical - moderate - high VTE Device Contraindication: N/A - Device Ordered VTE Drug Contraindication: N/A - Med Ordered
[2021-01-24 11:21] LABS: Glucose, Whole Blood 317 mg/dL (60-115)
[2021-01-24] MEDS: Sodium Polystyrene Sulfon/Sorb 15 GM/60 ML ORAL.SUSP 30 GM PO (12:17)
[2021-01-24] MEDS: Insulin Glargine,Hum.rec.anlog 100 UNIT/ML 10 ML VIAL 8 UNIT SUBCUT (12:19)
[2021-01-24] MEDS: Insulin Lispro 100 UNIT/ML 3 ML VIAL SUBCUT ×6 (12:19→22:31)
[2021-01-24] MEDS: Sodium Bicarbonate 650 MG TABLET PO ×3 (12:20→22:29)
--- NOTE | 2021-01-24 12:58 | MHC.CM.PN ---
pt approved for,pt thru [facility] at [facility] pt can not be dcd today due to her renal issues
--- NOTE | 2021-01-24 14:39 | MHC.CLN ---
Addendum entered by Mary Delacruz, HILL 01/24/21 14:45: ADDED LOW POTASSIUM TO DIET ORDER. DIET=DIABETIC 1800 KCAL, 2 GRAM SODIUM, LOW POTASSIUM. Original Note: F/U CKD STAGE 4. ELEVATED POTASSIUM, BUN, Cr NOTED. PATIENT STATED THAT DOES NOT LIKE GLUCERNA. DISCONTINUE SINCE DISLIKES AND NOT LOW POTASSIUM. CONTINUES WITH STAGE II TO LEFT STUMP. STATED THAT USUALLY EATS SANDWICHES FOR EASE OF EATING. NO REPORTED CONCERNS WITH APPETITE. MONITOR RENAL FUNCTION, WOUND HEALING, INTAKE.
[2021-01-24 16:00] LABS: Glucose, Whole Blood 242 mg/dL (60-115)
--- NOTE | 2021-01-24 16:22 | ECG_ITS ---
Test Reason : r/o t-wave elevation Blood Pressure : / mmHG Vent. Rate : 074 BPM Atrial Rate : 074 BPM P-R Int : 198 ms QRS Dur : 092 ms QT Int : 376 ms P-R-T Axes : 057 002 017 degrees QTc Int : 417 ms Normal sinus rhythm Intra-ventricular conduction delay Left axis deviation Nonspecific ST abnormality Abnormal ECG ST more depressed Lateral leads Referred By: [facility] Electronically Signed By:MARGIE HARRINGTON MD
[2021-01-24] MEDS: ondansetron HCL 4 MG/2 ML VIAL IVPUSH (17:27)
[2021-01-24 18:03] LABS: ABG Base Excess -4.5 mmol/L; ABG HCO3 21 mmol/L (22-26); ABG pCO2 42 mmHg (32-45); ABG pCO2 TC 41 mmHg (32-45); ABG pH 7.31 (7.35-7.45); ABG pH TC 7.32 (7.35-7.45); ABG pO2 64 mmHg (83-108); ABG pO2 TC 61 (83-108)
[2021-01-24 18:22] LABS: Anion Gap 15 (12-20); Blood Urea Nitrogen 58 mg/dL (9-16); Calcium 7.8 mg/dL (8.4-10.2); Carbon Dioxide 20 mmol/L (22-29); Chloride 105 mmol/L (96-108); Creatinine Clr Calc Pharmacy 28.1; Estimated Glomerular Filt Rate 18; Glucose Random 284 mg/dL (60-115); Potassium 5.2 mmol/L (3.3-5.1); Sodium 135 mmol/L (135-145)
[2021-01-24 18:41] LABS: ABG Refer to POC result
[2021-01-24 19:47] LABS: Glucose, Whole Blood 240 mg/dL (60-115)
--- NOTE | 2021-01-24 20:21 | PC.NURSE ---
PATIENT WAS LETHARGIC/DROWSY/MILDLY DELERIOUS TODAY, YET ABLE TO ANSWER ORIENTEATION QUESTIONS. HER FRIEND CAME AND DROPPED OF HCP INFO TO [facility], NOT INVOKED AT THIS TIME. MD AWARE OF APPARENT DECLINE IN PATIENT AND ORDERED CXR, ABG, AND LABS, THESE WERE REVIEWED BY . ECG ALSO REVIEWED BY MD, NO T-WAVE ELEVATION.
[2021-01-24] MEDS: Atorvastatin Calcium 80 MG TABLET PO (22:29)
[2021-01-25] VITALS (7 sets, daily range): BP systolic 112–148; BP diastolic 55–60; PULSE 67–81; RESP 18–20; TEMP 35.5–36.7; O2SAT 90–93
[2021-01-25] MEDS: Omeprazole 20 MG CAPSULE.DR PO (06:35)
[2021-01-25 07:12] LABS: Glucose, Whole Blood 199 mg/dL (60-115)
[2021-01-25 07:59] LABS: Anion Gap 14 (12-20); Blood Urea Nitrogen 55 mg/dL (9-16); Calcium 7.7 mg/dL (8.4-10.2); Carbon Dioxide 22 mmol/L (22-29); Chloride 104 mmol/L (96-108); Creatinine Clr Calc Pharmacy 31.8; Estimated Glomerular Filt Rate 21; Glucose Random 222 mg/dL (60-115); Potassium 5.1 mmol/L (3.3-5.1); Sodium 135 mmol/L (135-145)
[2021-01-25] MEDS: Insulin Lispro 100 UNIT/ML 3 ML VIAL SUBCUT ×8 (08:34→20:51)
[2021-01-25] MEDS: Insulin Glargine,Hum.rec.anlog 100 UNIT/ML 10 ML VIAL 50 UNIT SUBCUT (08:35)
[2021-01-25] MEDS: Sodium Bicarbonate 650 MG TABLET PO ×3 (08:36→20:51)
[2021-01-25] MEDS: Isosorbide Mononitrate 60 MG TAB.ER.24H PO (08:36)
[2021-01-25] MEDS: Aspirin Enteric Coated 81 MG TABLET.DR PO (08:36)
[2021-01-25] MEDS: amLODIPine Besylate 10 MG TABLET PO (08:37)
[2021-01-25] MEDS: Heparin Sodium,Porcine 5,000 UNIT/ML VIAL 5000 UNIT SUBCUT ×2 (08:37→20:51)
[2021-01-25] MEDS: Metoprolol Tartrate 50 MG TABLET PO ×2 (08:37→20:51)
[2021-01-25] MEDS: Clopidogrel Bisulfate 75 MG TABLET PO (08:37)
[2021-01-25] MEDS: 0.9 % Sodium Chloride Flush 3 ML SYRINGE IVFLUSH ×3 (08:38→20:51)
--- NOTE | 2021-01-25 09:59 | P.PNIM_ITS ---
Subjective Subjective Date of Service: 01/25/21 Interval History: Seen in f/u for IRINA, hyperkalemia---potassium is normal, renal function is improving. , no confusion, Review of Systems no fever, mild sorenss at bottom Physical Exam Vital Signs: Vital Signs: Last Vital Signs Temp 96.1 F L 01/25/21 07:08 Pulse 73 01/25/21 08:37 Resp 20 01/25/21 07:08 BP 117/55 L 01/25/21 08:37 Pulse Ox 92 01/25/21 07:08 Body Mass Index 48.2 General: AO X 3, no acute distress Resp: CTA bilateral CVS: S1,S2,RRR GI: +BS, NT, no distention Skin: No rash, escoriation of buttock area Neuro: motor grossly intact Psych: appropriate affect Objective Data Active Medications Acetaminophen (Acetaminophen 325 Mg Tablet) 650 mg PO Q6H PRN PRN Reason: headaches Last Admin: 01/22/21 22:33 Dose: 650 mg Documented by: VIV Amlodipine Besylate (Amlodipine Besylate 10 Mg Tablet) 10 mg PO DAILY [facility]; Protocol Last Admin: 01/25/21 08:37 Dose: 10 mg Documented by: KAT Aspirin (Aspirin Enteric Coated 81 Mg Tablet.) 81 mg PO DAILY [facility] Last Admin: 01/25/21 08:36 Dose: 81 mg Documented by: KAT Atorvastatin Calcium (Atorvastatin Calcium 80 Mg Tablet) 80 mg PO BEDTIME [facility] Last Admin: 01/24/21 22:29 Dose: 80 mg Documented by: JAVIER Clopidogrel Bisulfate (Clopidogrel Bisulfate 75 Mg Tablet) 75 mg PO DAILY [facility] Last Admin: 01/25/21 08:37 Dose: 75 mg Documented by: KAT Dextrose (Dextrose 50 % 25 Gm/50 Ml Vial) 25 gm IVPUSH Q15M PRN; Protocol PRN Reason: per Hypoglycemia Standing Ord. Glucose (Glucose Gel 15 Gm Gel..Gram.) 15 gm PO Q15M PRN; Protocol PRN Reason: per Hypoglycemia Standing Ord. Heparin Sodium (Porcine) (Heparin Sodium,Porcine 5,000 Unit/Ml Vial) 5,000 unit SUBCUT Q12H [facility] Last Admin: 01/25/21 08:37 Dose: 5,000 unit Documented by: KAT Sodium Chloride (Ns) 1,000 mls @ 75 mls/hr IVCONT .[id number] [facility] Last Admin: 01/24/21 17:46 Dose: 75 mls/hr Documented by: BENNY Insulin Glargine (Insulin Glargine,Hum.Rec.Anlog 100 Unit/Ml 10 Ml Vial) 50 unit SUBCUT DAILY [facility] Last Admin: 01/25/21 08:35 Dose: 50 unit Documented by: KAT Insulin Human Lispro (Insulin Lispro 100 Unit/Ml 3 Ml Vial) 0 unit SUBCUT QIDAS [facility]; Protocol Last Admin: 01/25/21 08:34 Dose: 2 unit Documented by: KAT Insulin Human Lispro (Insulin Lispro 100 Unit/Ml 3 Ml Vial) 5 unit SUBCUT QIDAS [facility] Last Admin: 01/25/21 08:35 Dose: 5 unit Documented by: KAT Isosorbide Mononitrate (Isosorbide Mononitrate 60 Mg Tab.Er.24h) 60 mg PO DAILY [facility]; Protocol Last Admin: 01/25/21 08:36 Dose: 60 mg Documented by: KAT Magnesium Hydroxide (Milk Of Magnesia 30 Ml Oral.Susp) 30 ml PO DAILY PRN PRN Reason: Constipation Metoprolol Tartrate (Metoprolol Tartrate 50 Mg Tablet) 50 mg PO BID [facility]; Protocol Last Admin: 01/25/21 08:37 Dose: 50 mg Documented by: KAT Omeprazole (Omeprazole 20 Mg Capsule.Dr) 20 mg PO DAILY@0630 [facility] Last Admin: 01/25/21 06:35 Dose: 20 mg Documented by: JAVIER Ondansetron HCl (Ondansetron Hcl 4 Mg/2 Ml Vial) 4 mg IVPUSH Q8H PRN PRN Reason: Nausea and Vomiting Last Admin: 01/24/21 17:27 Dose: 4 mg Documented by: BENNY Oxycodone HCl (Oxycodone Hcl Immed Release 5 Mg Tablet) 5 mg PO Q6H PRN PRN Reason: Pain, Severe (Pain Scale 7-10) Last Admin: 01/24/21 22:29 Dose: 5 mg Documented by: JAVIER Polyethylene Glycol (Polyethylene Glycol 3350 17 Gm Powd.Pack) 17 gm PO DAILY PRN PRN Reason: Constipation Last Admin: 01/14/21 15:49 Dose: 17 gm Documented by: ELIUD Sodium Bicarbonate (Sodium Bicarbonate 650 Mg Tablet) 650 mg PO TID [facility] Last Admin: 01/25/21 08:36 Dose: 650 mg Documented by: KAT Sodium Chloride (0.9 % Sodium Chloride Flush 3 Ml Syringe) 3 ml IVFLUSH QSHIFT [facility] Last Admin: 01/25/21 08:38 Dose: 3 ml Documented by: KAT Labs CBC & Chem 7: 01/23/21 12:48 01/25/21 06:15 Labs: Laboratory Results - last 24 hr 01/24/21 01/24/21 01/24/21 11:14 15:54 17:50 O2 Saturation ABG pH at Pt Temp ABG pH (Temp Correct) ABG pCO2 at Pt Temp ABG pCO2 (Temp Corrct ABG pO2 at Pt Temp ABG pO2 (Temp Correct ABG HCO3 ABG Base Excess (Actual) Anion Gap 15 Estim Creat Clear Calc 28.1 Estimated GFR 18 POC Glucose 317 H 242 H Random Glucose 284 H Calcium 7.8 L 01/24/21 01/24/21 01/25/21 17:56 19:43 06:15 O2 Saturation 88.0 ABG pH at Pt Temp 7.31 L ABG pH (Temp Correct) 7.32 L ABG pCO2 at Pt Temp 42 ABG pCO2 (Temp Corrct 41 ABG pO2 at Pt Temp 64 L ABG pO2 (Temp Correct 61 L ABG HCO3 21 L ABG Base Excess (Actual) -4.5 Anion Gap 14 Estim Creat Clear Calc 31.8 Estimated GFR 21 POC Glucose 240 H Random Glucose 222 H Calcium 7.7 L 01/25/21 07:09 O2 Saturation ABG pH at Pt Temp ABG pH (Temp Correct) ABG pCO2 at Pt Temp ABG pCO2 (Temp Corrct ABG pO2 at Pt Temp ABG pO2 (Temp Correct ABG HCO3 ABG Base Excess (Actual) Anion Gap Estim Creat Clear Calc Estimated GFR POC Glucose 199 H Random Glucose Calcium Assessment and Plan (1) IRINA (acute kidney injury): Status: Acute Assessment and Plan: hosp D #13 69-year-old female obesse with CKD, HTN, diabetes who presented with chest pain and found to have NSTEMI, uncontrolled diabetes and IRINA on CKD, she did well and was ready for dc but then noted to have increase creatinine and potassium #IRINA on CKD---improving, Cr 2.3 today, baseline around 2.2 -holding Losart, DC IVF, Nephro following Hyperkalemia d.t renal failure and ARB and may have RTA4 -treated with Lokelma less succesful, then Kayexalate and bicab given for RTA 4 -K is now normal. # Sepsis/cellulitis of leg, mostly chronic and completed course of Abx(Zosyn and Augmentin), no active infection #NSTEMI -treated with heparin drip x 48 hrs -continue Plavix, bb, statin stress test on 01/13 showed: 1.? Myocardial perfusion imaging study shows septal and apical ischemia in mid to distal LAD territory 2.? Gated LVEF is 59% with stress and 66% with stress 3. Transient ischemic dilatation present Cardilogy recommend optimization of medical therapy #Hypertension: continue Metoprolol 50 bid, norasc 10 qd. stop Losartan d/t low bP and hyperkalemia #Diabetes, uncontrolled, (at home humaglog 50 tid), continue Lantus, incrase to 55 and continue SSI, and pre meal insulin monitor sugars, FBS was 199 #Right leg x-ray shows fracture of distal tibia and fibula ? ,talus laterally displaced-moves right and left extermity fine , no pain, chronic changes from injury 3 years ago. Outpatient ortho f/u # UTI--completed Abx course #Mild confusion, likely d/t gabaptentin in setting of renal failure, reduce Gapentin to 100 tid from 600 tid #Stomach upset on 01/22/21--CT unremarkable, resolved. # raw bottom, d/t imobility and diarrhea, frequent turning, request air loss mattress wound nurse randi, wound care consult. Air Loss bed her brother -Mr Rojas no is [phone]( home ), ). Quality Stroke Does the patient have a stroke diagnosis?: No VTE Prior VTE?: No VTE Risk Level:: Medical - moderate - high VTE Device Contraindication: N/A - Device Ordered VTE Drug Contraindication: N/A - Med Ordered
[2021-01-25 11:08] LABS: Glucose, Whole Blood 193 mg/dL (60-115)
[2021-01-25] MEDS: Insulin Glargine,Hum.rec.anlog 100 UNIT/ML 10 ML VIAL SUBCUT (12:00)
[2021-01-25] MEDS: oxyCODONE HCl Immed Release 5 MG TABLET PO ×2 (13:36→20:55)
--- NOTE | 2021-01-25 14:07 | PM.PNNEP ---
Subjective Subjective Date of Service: 01/25/21 Principal diagnosis: IRINA on CKD Interval history: Events noted. All recent data reviewed Physical Exam Vital Signs: Vital Signs: Last Vital Signs Temp 96 F L 01/25/21 10:58 Pulse 67 01/25/21 10:58 Resp 20 01/25/21 10:58 BP 112/58 L 01/25/21 10:58 Pulse Ox 91 L 01/25/21 10:58 Body Mass Index 48.2 Const: General: no acute distress Eyes: EOM: EOMs intact bilaterally Neck: Neck: Yes supple Resp: Auscultation: diminished lung sounds Cardio: Jugular venous distension: no JVD GI: Palpation (GI): Soft to palpation Neuro: General: moves all extremities Objective Data Labs CBC & Chem 7: 01/23/21 12:48 01/25/21 06:15 Labs: Laboratory Results - last 24 hr 01/24/21 01/24/21 01/24/21 15:54 17:50 17:56 O2 Saturation 88.0 ABG pH at Pt Temp 7.31 L ABG pH (Temp Correct) 7.32 L ABG pCO2 at Pt Temp 42 ABG pCO2 (Temp Corrct 41 ABG pO2 at Pt Temp 64 L ABG pO2 (Temp Correct 61 L ABG HCO3 21 L ABG Base Excess (Actual) -4.5 Sodium 135 Potassium 5.2 H Chloride 105 Carbon Dioxide 20 L Anion Gap 15 BUN 58 H Creatinine 2.60 H Estim Creat Clear Calc 28.1 Estimated GFR 18 POC Glucose 242 H Random Glucose 284 H Calcium 7.8 L 01/24/21 01/25/21 01/25/21 19:43 06:15 07:09 O2 Saturation ABG pH at Pt Temp ABG pH (Temp Correct) ABG pCO2 at Pt Temp ABG pCO2 (Temp Corrct ABG pO2 at Pt Temp ABG pO2 (Temp Correct ABG HCO3 ABG Base Excess (Actual) Sodium 135 Potassium 5.1 Chloride 104 Carbon Dioxide 22 Anion Gap 14 BUN 55 H Creatinine 2.30 H Estim Creat Clear Calc 31.8 Estimated GFR 21 POC Glucose 240 H 199 H Random Glucose 222 H Calcium 7.7 L 01/25/21 10:58 O2 Saturation ABG pH at Pt Temp ABG pH (Temp Correct) ABG pCO2 at Pt Temp ABG pCO2 (Temp Corrct ABG pO2 at Pt Temp ABG pO2 (Temp Correct ABG HCO3 ABG Base Excess (Actual) Sodium Potassium Chloride Carbon Dioxide Anion Gap BUN Creatinine Estim Creat Clear Calc Estimated GFR POC Glucose 193 H Random Glucose Calcium Microbiology Microbiology Results: Microbiology 01/12/21 09:39 Blood - Venous Blood Culture - Final No growth after 5 days. 01/12/21 09:25 Blood - Venous Blood Culture - Final Coag negative Staphylococcus 01/12/21 00:00 Urine Catheterized - Straight Catheter Urine Culture - Final Strep agalactiae (Grp B) Escherichia coli Procedures Date of Service Date of Service: 01/25/21 Assessment & Plan Assessment and plan (1) IRINA (acute kidney injury): Status: Acute Assessment and Plan: CKD 4. Renal functions improving Hypertension- Well controlled Type IV RTA Continue current supportive care Lokelma as needed Started on NaHCO3 Continue rest of current supportive care Shall arrange for out pt follow up when D/Willam Time Spent With Patient Time: Total time spent is greater than 50% in coordination of care (as documented) at patient's floor/unit and/or counseling patient: Progress Note: Quality Stroke Does the patient have a stroke diagnosis?: No
[2021-01-25 16:10] LABS: Glucose, Whole Blood 191 mg/dL (60-115)
[2021-01-25 19:31] LABS: Glucose, Whole Blood 175 mg/dL (60-115)
[2021-01-25] MEDS: Atorvastatin Calcium 80 MG TABLET PO (20:51)
[2021-01-26] VITALS (8 sets, daily range): BP systolic 128–156; BP diastolic 58–67; PULSE 69–81; RESP 18–20; TEMP 36.1–37.1; O2SAT 90–92
[2021-01-26] MEDS: oxyCODONE HCl Immed Release 5 MG TABLET PO ×2 (04:07→21:02)
[2021-01-26] MEDS: Omeprazole 20 MG CAPSULE.DR PO (04:08)
[2021-01-26 06:45] LABS: Anion Gap 12 (12-20); Blood Urea Nitrogen 49 mg/dL (9-16); Carbon Dioxide 25 mmol/L (22-29); Chloride 108 mmol/L (96-108); Creatinine Clr Calc Pharmacy 38.8; Estimated Glomerular Filt Rate 26; Glucose Random 164 mg/dL (60-115); Sodium 140 mmol/L (135-145)
[2021-01-26 07:15] LABS: Glucose, Whole Blood 162 mg/dL (60-115)
[2021-01-26] MEDS: Insulin Lispro 100 UNIT/ML 3 ML VIAL SUBCUT ×8 (07:33→20:56)
[2021-01-26] MEDS: Insulin Glargine,Hum.rec.anlog 100 UNIT/ML 10 ML VIAL 55 UNIT SUBCUT (09:57)
[2021-01-26] MEDS: Heparin Sodium,Porcine 5,000 UNIT/ML VIAL 5000 UNIT SUBCUT ×2 (09:57→20:57)
[2021-01-26] MEDS: ondansetron HCL 4 MG/2 ML VIAL IVPUSH ×2 (09:57→16:32)
[2021-01-26] MEDS: Isosorbide Mononitrate 60 MG TAB.ER.24H PO (09:58)
[2021-01-26] MEDS: Sodium Bicarbonate 650 MG TABLET PO ×3 (09:58→20:56)
[2021-01-26] MEDS: amLODIPine Besylate 10 MG TABLET PO (09:58)
[2021-01-26] MEDS: Clopidogrel Bisulfate 75 MG TABLET PO (09:58)
[2021-01-26] MEDS: 0.9 % Sodium Chloride Flush 3 ML SYRINGE IVFLUSH ×3 (09:58→20:57)
[2021-01-26] MEDS: Metoprolol Tartrate 50 MG TABLET PO ×2 (09:58→20:55)
[2021-01-26] MEDS: Aspirin Enteric Coated 81 MG TABLET.DR PO (09:58)
[2021-01-26 10:56] LABS: COVID-19 Test Negative (Negative)
[2021-01-26 11:23] LABS: Glucose, Whole Blood 184 mg/dL (60-115)
--- NOTE | 2021-01-26 13:55 | MHC.CM.PN ---
Per MD, patient could go to SNF today should bed offer be in place and auth obtained by [facility]. 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 Pending auth confirmation.
--- NOTE | 2021-01-26 13:55 | P.PNIM_ITS ---
Subjective Subjective Date of Service: 01/26/21 Interval History: c/o some nausea, no vomiting no dyspnea no chest pain Review of Systems Review of Systems: Yes all other systems are reviewed and are negative Physical Exam Vital Signs: Vital Signs: Last Vital Signs Temp 98 F 01/26/21 11:10 Pulse 70 01/26/21 11:10 Resp 19 01/26/21 11:10 BP 128/60 01/26/21 11:10 Pulse Ox 90 L 01/26/21 11:10 Body Mass Index 48.2 Gen: in no acute distress HEENT: sclera anicteric, moist mucus membranes Neck: supple Lungs: clear to auscultation bilaterally Heart: regular rate and rhythm, no murmurs Abd: soft, non-tender, non-distended, morbidly obese Ext: no edema Skin: warm/well-perfused Neuro: alert and oriented x3, no focal findings Psych: appropriate affect Objective Data Active Medications Acetaminophen (Acetaminophen 325 Mg Tablet) 650 mg PO Q6H PRN PRN Reason: headaches Last Admin: 01/22/21 22:33 Dose: 650 mg Documented by: VIV Amlodipine Besylate (Amlodipine Besylate 10 Mg Tablet) 10 mg PO DAILY [facility]; Protocol Last Admin: 01/26/21 09:58 Dose: 10 mg Documented by: KAT Aspirin (Aspirin Enteric Coated 81 Mg Tablet.) 81 mg PO DAILY [facility] Last Admin: 01/26/21 09:58 Dose: 81 mg Documented by: KAT Atorvastatin Calcium (Atorvastatin Calcium 80 Mg Tablet) 80 mg PO BEDTIME [facility] Last Admin: 01/25/21 20:51 Dose: 80 mg Documented by: GIULIANO Clopidogrel Bisulfate (Clopidogrel Bisulfate 75 Mg Tablet) 75 mg PO DAILY [facility] Last Admin: 01/26/21 09:58 Dose: 75 mg Documented by: KAT Dextrose (Dextrose 50 % 25 Gm/50 Ml Vial) 25 gm IVPUSH Q15M PRN; Protocol PRN Reason: per Hypoglycemia Standing Ord. Glucose (Glucose Gel 15 Gm Gel..Gram.) 15 gm PO Q15M PRN; Protocol PRN Reason: per Hypoglycemia Standing Ord. Heparin Sodium (Porcine) (Heparin Sodium,Porcine 5,000 Unit/Ml Vial) 5,000 unit SUBCUT Q12H [facility] Last Admin: 01/26/21 09:57 Dose: 5,000 unit Documented by: KAT Insulin Glargine (Insulin Glargine,Hum.Rec.Anlog 100 Unit/Ml 10 Ml Vial) 55 unit SUBCUT DAILY [facility] Last Admin: 01/26/21 09:57 Dose: 55 unit Documented by: KAT Insulin Human Lispro (Insulin Lispro 100 Unit/Ml 3 Ml Vial) 0 unit SUBCUT QIDACHS [facility]; Protocol Last Admin: 01/26/21 11:48 Dose: 2 unit Documented by: KAT Insulin Human Lispro (Insulin Lispro 100 Unit/Ml 3 Ml Vial) 5 unit SUBCUT QI [facility] Last Admin: 01/26/21 11:48 Dose: 5 unit Documented by: KAT Isosorbide Mononitrate (Isosorbide Mononitrate 60 Mg Tab.Er.24h) 60 mg PO DAILY [facility]; Protocol Last Admin: 01/26/21 09:58 Dose: 60 mg Documented by: KAT Magnesium Hydroxide (Milk Of Magnesia 30 Ml Oral.Susp) 30 ml PO DAILY PRN PRN Reason: Constipation Metoprolol Tartrate (Metoprolol Tartrate 50 Mg Tablet) 50 mg PO BID [facility]; Protocol Last Admin: 01/26/21 09:58 Dose: 50 mg Documented by: KAT Omeprazole (Omeprazole 20 Mg Capsule.Dr) 20 mg PO DAILY@0630 [facility] Last Admin: 01/26/21 04:08 Dose: 20 mg Documented by: GIULIANO Ondansetron HCl (Ondansetron Hcl 4 Mg/2 Ml Vial) 4 mg IVPUSH Q8H PRN PRN Reason: Nausea and Vomiting Last Admin: 01/26/21 09:57 Dose: 4 mg Documented by: KAT Oxycodone HCl (Oxycodone Hcl Immed Release 5 Mg Tablet) 5 mg PO Q6H PRN PRN Reason: Pain, Severe (Pain Scale 7-10) Last Admin: 01/26/21 04:07 Dose: 5 mg Documented by: GIULIANO Polyethylene Glycol (Polyethylene Glycol 3350 17 Gm Powd.Pack) 17 gm PO DAILY PRN PRN Reason: Constipation Last Admin: 01/14/21 15:49 Dose: 17 gm Documented by: ELIUD Sodium Bicarbonate (Sodium Bicarbonate 650 Mg Tablet) 650 mg PO TID [facility] Last Admin: 01/26/21 09:58 Dose: 650 mg Documented by: KAT Sodium Chloride (0.9 % Sodium Chloride Flush 3 Ml Syringe) 3 ml IVFLUSH QSHIFT [facility] Last Admin: 01/26/21 09:58 Dose: 3 ml Documented by: KAT Labs CBC & Chem 7: 01/23/21 12:48 01/26/21 05:43 Labs: Laboratory Results - last 24 hr 01/25/21 01/25/21 01/26/21 16:05 19:26 05:43 Anion Gap 12 Estim Creat Clear Calc 38.8 Estimated GFR 26 POC Glucose 191 H 175 H Random Glucose 164 H Calcium 8.0 L COVID-19 ([facility]) COVID-19 Clin Com 01/26/21 01/26/21 01/26/21 07:06 10:15 11:09 Anion Gap Estim Creat Clear Calc Estimated GFR POC Glucose 162 H 184 H Random Glucose Calcium COVID-19 ([facility]) Negative COVID-19 Clin Com See Note Assessment and Plan (1) IRINA (acute kidney injury): Status: Acute Assessment and Plan: hospital d#14 69yo F with morbid obesity, CKD4, HTN, DM2 presented with chest pain admitted for NSTEMI, IRINA/CKD, hyperglycemia was ready for d/c to SNF but then had hyperK and worsening IRINA # IRINA/CKD4 - improved, SCr now 1.88 after IV fluids and holding losartan, Nephrology following # hyperK - due to renal failure and ARB, possibly RTA4. treated with Lokelma, then Kayexelate and then started on bicarbonate. K now normal. # NSTEMI - MPS on 01/13/ showed septal/apical ischemia in mid-distal LAD territory - treated medically given comorbidities + renal dysfunction with heparin gtt x 48 h. continue DAPT, metoprolol, atorvastatin. no angina at this time. # sepsis due to cellultiis - completed course of pip/tamara -> amox/clav, resolved # UTI - E. coli + GBS, treated # HTN - continue metoprolol + amlodipine; losartan stopped as above # DM2, uncontrolled, A1c 10.6 - continue basal/bolus insu # chronic distal R tibia/fibula fracture, talus laterally displaced - no pain, chronic changes from injury 3 yr ago; outpt Ortho f/u # mild confusion - likely gabapentin accumulation in renal failure; improved with reducing dose from 600 mg tid to 100 mg tid # stomach upset - reported on 01/22/21, resolved; CT unremarkable; if recurs and persists consider workup for DM gastroparesis with GES # maceration of buttocks - due to immobilitiy + diarrhea - air loss bed, Wound nurse evaluation, Wound Care consult # dispo - will check CoV2 NAAT for STR placement previously recommended by PT her brother -Mr Rojas no is [phone]( home ), ). Quality Stroke Does the patient have a stroke diagnosis?: No VTE Prior VTE?: No VTE Risk Level:: Medical - moderate - high VTE Device Contraindication: N/A - Device Ordered VTE Drug Contraindication: N/A - Med Ordered
--- NOTE | 2021-01-26 14:13 | PM.PNNEP ---
Subjective Subjective Date of Service: 01/26/21 Principal diagnosis: IRINA on CKD Interval history: Occasionally nauseous. All recent data reviewed Physical Exam Vital Signs: Vital Signs: Last Vital Signs Temp 98 F 01/26/21 11:10 Pulse 70 01/26/21 11:10 Resp 19 01/26/21 11:10 BP 128/60 01/26/21 11:10 Pulse Ox 90 L 01/26/21 11:10 Body Mass Index 48.2 Const: General: no acute distress Eyes: EOM: EOMs intact bilaterally Neck: Neck: Yes supple Resp: Auscultation: diminished lung sounds Cardio: Rate: regular rate GI: Palpation (GI): Soft to palpation Neuro: General: moves all extremities Objective Data Labs CBC & Chem 7: 01/23/21 12:48 01/26/21 05:43 Labs: Laboratory Results - last 24 hr 01/25/21 01/25/21 01/26/21 16:05 19:26 05:43 Sodium 140 Potassium 5.0 Chloride 108 Carbon Dioxide 25 Anion Gap 12 BUN 49 H Creatinine 1.88 H Estim Creat Clear Calc 38.8 Estimated GFR 26 POC Glucose 191 H 175 H Random Glucose 164 H Calcium 8.0 L COVID-19 ([facility]) COVID-19 Clin Com 01/26/21 01/26/21 01/26/21 07:06 10:15 11:09 Sodium Potassium Chloride Carbon Dioxide Anion Gap BUN Creatinine Estim Creat Clear Calc Estimated GFR POC Glucose 162 H 184 H Random Glucose Calcium COVID-19 ([facility]) Negative COVID-19 Clin Com See Note Microbiology Microbiology Results: Microbiology 01/12/21 09:39 Blood - Venous Blood Culture - Final No growth after 5 days. 01/12/21 09:25 Blood - Venous Blood Culture - Final Coag negative Staphylococcus 01/12/21 00:00 Urine Catheterized - Straight Catheter Urine Culture - Final Strep agalactiae (Grp B) Escherichia coli Procedures Date of Service Date of Service: 01/26/21 Assessment & Plan Assessment and plan (1) IRINA (acute kidney injury): Status: Acute Assessment and Plan: CKD 4. Renal functions improving Hypertension- Well controlled Type IV RTA Continue current supportive care Lokelma as needed; C/W NaHCO3 Continue rest of current supportive care Shall arrange for out pt follow up when D/Willam Time Spent With Patient Time: Total time spent is greater than 50% in coordination of care (as documented) at patient's floor/unit and/or counseling patient: Progress Note: Quality Stroke Does the patient have a stroke diagnosis?: No
[2021-01-26 16:07] LABS: Glucose, Whole Blood 167 mg/dL (60-115)
[2021-01-26 20:01] LABS: Glucose, Whole Blood 179 mg/dL (60-115)
[2021-01-26] MEDS: Atorvastatin Calcium 80 MG TABLET PO (20:56)
[2021-01-27 03:40] VITALS: BP 161/69; PULSE 79; RESP 18; TEMP 36.6; O2SAT 92
[2021-01-27] MEDS: ondansetron HCL 4 MG/2 ML VIAL IVPUSH (03:51)
[2021-01-27] MEDS: Omeprazole 20 MG CAPSULE.DR PO (06:24)
[2021-01-27] MEDS: oxyCODONE HCl Immed Release 5 MG TABLET PO ×2 (06:24→12:53)
[2021-01-27 07:38] VITALS: BP 151/70; PULSE 79; RESP 16; TEMP 36.6; O2SAT 92
[2021-01-27 07:47] LABS: Anion Gap 12 (12-20); Blood Urea Nitrogen 40 mg/dL (9-16); Calcium 8.2 mg/dL (8.4-10.2); Carbon Dioxide 26 mmol/L (22-29); Chloride 107 mmol/L (96-108); Creatinine Clr Calc Pharmacy 43.3; Estimated Glomerular Filt Rate 30; Glucose Random 111 mg/dL (60-115); Potassium 5.3 mmol/L (3.3-5.1); Sodium 140 mmol/L (135-145)
[2021-01-27 07:55] LABS: Glucose, Whole Blood 135 mg/dL (60-115)
[2021-01-27] MEDS: Insulin Lispro 100 UNIT/ML 3 ML VIAL SUBCUT ×3 (08:57→12:14)
[2021-01-27] MEDS: Heparin Sodium,Porcine 5,000 UNIT/ML VIAL 5000 UNIT SUBCUT (09:42)
[2021-01-27 09:43] VITALS: BP 151/70; PULSE 79; O2SAT 92
[2021-01-27] MEDS: 0.9 % Sodium Chloride Flush 3 ML SYRINGE IVFLUSH (09:45)
[2021-01-27] MEDS: Sodium Bicarbonate 650 MG TABLET PO (09:46)
[2021-01-27] MEDS: Clopidogrel Bisulfate 75 MG TABLET PO (09:46)
[2021-01-27] MEDS: Isosorbide Mononitrate 60 MG TAB.ER.24H PO (09:46)
[2021-01-27] MEDS: amLODIPine Besylate 10 MG TABLET PO (09:46)
[2021-01-27] MEDS: Aspirin Enteric Coated 81 MG TABLET.DR PO (09:46)
[2021-01-27] MEDS: Metoprolol Tartrate 50 MG TABLET PO (09:46)
[2021-01-27] MEDS: Insulin Glargine,Hum.rec.anlog 100 UNIT/ML 10 ML VIAL 55 UNIT SUBCUT (09:48)
[2021-01-27 11:27] VITALS: BP 111/54; PULSE 68; RESP 16; TEMP 36.8; O2SAT 94
--- NOTE | 2021-01-27 11:42 | MHC.CM.PN ---
pt being dcd today to [facility] at 1;00 message left for pts brother sofiya at [phone]
[2021-01-27 11:43] LABS: Glucose, Whole Blood 174 mg/dL (60-115)
--- NOTE | 2021-01-27 12:22 | PM.PNNEP ---
Subjective Subjective Date of Service: 01/27/21 Principal diagnosis: IRINA on CKD Interval history: Seen and Examined, events noted Physical Exam Vital Signs: Vital Signs: Last Vital Signs Temp 98.3 F 01/27/21 11:27 Pulse 68 01/27/21 11:27 Resp 16 01/27/21 11:27 BP 111/54 L 01/27/21 11:27 Pulse Ox 94 01/27/21 11:27 Body Mass Index 48.2 Const: General: cooperative, no acute distress, alert and awake; No in distress Orientation/consciousness: oriented to person and patient oriented x3 Eyes: EOM: EOMs intact bilaterally Neck: Neck: Yes full ROM and Yes supple Resp: Effort & Inspection: normal respiratory effort Auscultation: clear to auscultation bilaterally and diminished lung sounds Cardio: Jugular venous distension: no JVD Palpation: no palpable S4 Rate: regular rate Heart sounds: no rubs GI: Palpation (GI): Soft to palpation Auscultation: normal bowel sounds Neuro: General: oriented to person, patient oriented x3 and moves all extremities Motor exam (neuro): no asterixis Objective Data Labs CBC & Chem 7: 01/23/21 12:48 01/27/21 06:06 Labs: Laboratory Results - last 24 hr 01/26/21 01/26/21 01/27/21 16:02 19:50 06:06 Sodium 140 Potassium 5.3 H Chloride 107 Carbon Dioxide 26 Anion Gap 12 BUN 40 H Creatinine 1.69 H Estim Creat Clear Calc 43.3 Estimated GFR 30 POC Glucose 167 H 179 H Random Glucose 111 Calcium 8.2 L 01/27/21 01/27/21 07:36 11:24 Sodium Potassium Chloride Carbon Dioxide Anion Gap BUN Creatinine Estim Creat Clear Calc Estimated GFR POC Glucose 135 H 174 H Random Glucose Calcium Microbiology Microbiology Results: Microbiology 01/12/21 09:39 Blood - Venous Blood Culture - Final No growth after 5 days. 01/12/21 09:25 Blood - Venous Blood Culture - Final Coag negative Staphylococcus 01/12/21 00:00 Urine Catheterized - Straight Catheter Urine Culture - Final Strep agalactiae (Grp B) Escherichia coli Procedures Date of Service Date of Service: 01/27/21 Assessment & Plan Assessment and plan (1) IRINA (acute kidney injury): Status: Acute Assessment and Plan: 1. CKD 4: Scr stable 2. HyperK: d/t CKD and ques [id number] REC: cont PO NaHCO3; Lokelma 10 gm 3x/wk ( or kayexalte 15 gm 3x/wk) and track K q wk x2 then q month Time Spent With Patient Time: Total time spent is greater than 50% in coordination of care (as documented) at patient's floor/unit and/or counseling patient: Progress Note: Quality Stroke Does the patient have a stroke diagnosis?: No
--- NOTE | 2021-01-27 12:30 | P.DS_ITS ---
DS: Providers Provider Date of Service: 01/27/21 Date of admission: 01/12/21 13:44 Primary care physician: Herminia Aguirre MD Consults: 01/12/21 13:48 Consult to Cardiology Routine Consulting Provider: Romero Caban Reason for consultation: nstemi Has provider been notified: No Consult to Infectious Diseases Routine Consulting Provider: Natalya Ruiz Reason for consultation: sepsis /left leg cellulitis Has provider been notified: No 01/12/21 14:50 Consult to Nephrology Routine Consulting Provider: Julio C Bro Reason for consultation: ckd ? unclear Has provider been notified: No DS: Diagnosis Discharge Diagnosis (1) CKD (chronic kidney disease) stage 4, GFR 15-29 ml/min: Status: Acute DS: Summary Hospital Course Hospital Course: HPPI from admission Chief Complaint: left foot cellulitis , nstemi , dm with hyperglycemia 70-year-old female who came to the hospital-because she fell down day before yesterday and last night.? She said that she felt dizzy and she was feeling some confusion also and that is how she fell down.? She said that she did did not lose consciousness, in addition she is having 3-4 days of chest pain left side going to her left arm for which she did not talk to her primary. Patient was still having chest pain until this morning and even when she came to the hospital-but subsequently when I saw the patient chest pain seems to be resolved. She was also initially confused and altered mental status as per the ED notes but when I saw the patient is cleared out a lot and could able to answer most of the questions. She is not sure whether she had any leg pain or erythema she said she could not able to see her leg well because she has cataracts surgeries. Denies any new complaint of? shortness of breath or abdominal pain or fever or chills or nausea or vomiting Denies any cough Denies any weakness or numbness. Past medical history: History of diabetes, hypertension, hyperlipidemia, history of NC with 2 stents in the past, DJD, chronic renal insufficiency, anxiety, history of breast cancer with lumpectomy and radiation, also history of broken left shoulder. History of orthostasis Hospital course by problems #Sepsis/cellulitis of leg mostly chronic changes. Treated with Zosyn and later Augmentin and has completed course of antibiotics #NSTEMI manifested with increased in troponin I. She was treated medically with IV heparin for 48 hours, statin, beta loulou and Plavix and later underwent a stress test by cardiology with finding of 1.? Myocardial perfusion imaging study shows septal and apical ischemia in mid to distal LAD territory 2.? Gated LVEF is 59% with stress and 66% with stress 3. Transient ischemic dilatation present Cardilogy recommend optimization of medical therapy #Hypertension:? continue Metoprolol 50 bid, norasc 10 qd, incrase losartan to 50 daily #Diabetes, uncontrolled, at home on humalog 50 tid and trulicity 0.5 ( not on formulary) in hospital has been on Lantus adjussted to 50?at bedtime and continue SSI, monitor sugars,should continue pre-meal humalog at reduce candelario of 10, in addition to slidding scale 5. Right leg x-ray shows fracture of distal tibia and fibula ? ,talus laterally displaced-moves right and left extermity fine , no pain, chronic changes from injury 3 years ago. Outpatient f/u 6. UTI--culture e.coli and group b strep, augmentin for 5 days 7. IRINA on CKD, admission creatinine on 01/12 was 2.22 improved to 1.86 on 01/19, then worsened again on 01/23 to 2.57 when she was to be discharged, and had potassium of 6. She was treated with IVF, Losartan discontined and renal function has improved, presently creatinine of 1.69 today 01/27/21 and potassium is normal. Nephrology saw her and recommended Lokelma 10 mg 3 times a week to keep potassium down. And should follow up with Nephrology on outpatient basis. Neuropathy: gabapentin dose reduced from 600 tid to 100 tid due to renal failure Final Diagnosis: NSTEMI IRINA on CKD Sepsis, cellulitis of the leg Hyperkalemia diabetes HTN Summery was started on 01/21/21 and updated on 01/27/21 and reflects clinical course: Time Spent with Patient Time attestation: Total time spent providing and/or coordinating discharge services: Discharge coordination time: Greater than 30 minutes Quality: Stroke Does the patient have a stroke diagnosis?: No Physical Exam Vital Signs: Vital Signs: Selected Entries 01/27/21 11:27 Temperature 98.3 F Pulse Rate 68 Respiratory Rate 16 Blood Pressure 111/54 L Pulse Oximetry 94 Oxygen Delivery Me thod Room Air Gen: in no acute distress HEENT: sclera anicteric, moist mucus membranes Neck: supple Lungs: clear to auscultation bilaterally Heart: regular rate and rhythm, no murmurs Abd: soft, non-tender, non-distended, morbidly obese Ext: no edema Skin: warm/well-perfused Neuro: alert and oriented x3, no focal findings Psych: appropriate affect ? DS: Data Data Completed and Pending Labs on day of discharge: Laboratory Results - last 24 hr 01/20/21 01/20/21 01/21/21 16:14 20:02 07:01 POC Glucose 309 H 233 H 271 H 01/21/21 11:08 POC Glucose 383 H* Discharge Plan Discharge Anticipated Discharge Date/Time: 01/27/21 11:56 Patient Disposition: Xfer SNF Discharge Diagnosis: NSTEMI, IRINA, on CKD Referrals: [facility] [Outside] - 1 Week Herminia Aguirre MD [Primary Care Provider] - 1 Week Discharge Medications: New insulin lispro [Humalog U-100 Insulin] 100 unit/mL Solution See Protocol unit subcut QIDACHS Qty: 10 RF: 0 Lantus U-100 Insulin 100 unit/mL Solution 50 unit subcut DAILY Qty: 10 RF: 0 clopidogrel 75 mg Tablet 75 mg PO DAILY Qty: 0 RF: 0 amlodipine 10 mg Tablet 10 mg PO DAILY Qty: 0 RF: 0 Lokelma 10 gram powder in packet 10 g PO MOWEFR Qty: 30 RF: 0 polyethylene glycol 3350 17 gram Powder In Packet 17 g PO DAILY PRN (Reason: Constipation) Qty: 15 RF: 0 isosorbide mononitrate 60 mg Tablet Extended Release 24 Hr 60 mg PO DAILY Qty: 0 RF: 0 oxycodone 5 mg Tablet 5 mg PO Q6H PRN (Reason: severe pain) Qty: 0 RF: 0 gabapentin 100 mg capsule 100 mg PO TID Qty: 60 RF: 0 Continued nitroglycerin 0.4 mg tablet, sublingual 0.4 mg sublingual Q5M PRN (Reason: chest pain) 30 Days Qty: 25 RF: 0 atorvastatin 80 mg tablet 1 tab PO DAILY RF: 0 Lasix 40 mg PO DAILY RF: 0 omeprazole capsule 20 mg PO DAILY RF: 0 metoprolol tartrate 50 mg PO BID RF: 0 Changed insulin lispro [Humalog KwikPen Insulin] 100 unit/mL insulin pen 10 unit subcut TID Qty: 0 RF: 0 Discontinued isosorbide mononitrate 30 mg tablet extended release 24 hr 30 mg PO DAILY Qty: 90 RF: 2 Trulicity 0.75 mg/0.5 mL pen injector 0.5 ml subcut QWEEK RF: 0 gabapentin 600 mg tablet 1 tab PO TID RF: 0 Discharge Orders: Discharge Order (Routine); Ordered 01/21/21 Ordered By: Edwin Melton Diet: advance to usual diet and diabetic diet Activity on Discharge: As tolerated Stand Alone Forms: Patient Portal Discharge page Care Plan Goals: Prevent rehospitalization Health Concerns: NSTEMI, CKD, diabetes Plan of Treatment: Take all medications as recommended Assessment: See above.
--- NOTE | 2021-01-27 13:04 | MHC.CLN ---
Addendum entered by Mary Delacruz, RD 01/27/21 13:10: NUTRITION CONSULT FOR SKIN NOW WITH STAGE II WOUND TO BUTTOCK IDENTIFIED 01/25 IN ADDITION TO STAGE II TO LEFT STUMP. APPEARS TO BE EATING WELL. DISLIKES GLUCERNA SUPPLEMENT AND DISCONTINUED 01/24 PER HER REQUEST. CONTINUE TO MONITOR RENAL FUNCTION, INTAKE, AND WOUND HEALING. Original Note: F/U DIET=DIABETIC 1800 KCAL, 2 GRAM SODIUM, LOW POTASSIUM. CKD STAGE 4. CONTINUES WITH STAGE II TO LEFT STUMP. INTAKE AT MEALS USUALLY 50-100%. MONITOR RENAL FUNCTION, WOUND HEALING, INTAKE.
== END 2021-01-27 15:03 | disposition skilled nursing facility (03) | DRG 871 ==
LOC: HO.ED 11:59 → HO.EDOVER 13:55 → HO.IMC 01-13 06:12
PROVIDERS: Family Medicine; Hospitalist; Internal Medicine; Internal Medicine Cardiovascular Disease; Internal Medicine Nephrology; Admitting Provider Internal Medicine; Emergency Provider Emergency Medicine; PCP Internal Medicine Endocrinology, Diabetes & Metabolism; Visit Provider Internal Medicine
DX: A41.9 Sepsis, unspecified organism (principal); I21.4 Non-ST elevation (NSTEMI) myocardial infarction; L03.116 Cellulitis of left lower limb; N18.4 Chronic kidney disease, stage 4 (severe); Z68.42 Body mass index [BMI] 45.0-49.9, adult; N39.0 Urinary tract infection, site not specified; L97.419 Non-pressure chronic ulcer of right heel and midfoot with unspecified severity; N17.9 Acute kidney failure, unspecified; I25.10 Atherosclerotic heart disease of native coronary artery without angina pectoris; E11.65 Type 2 diabetes mellitus with hyperglycemia; I25.2 Old myocardial infarction; E66.01 Morbid (severe) obesity due to excess calories; E11.22 Type 2 diabetes mellitus with diabetic chronic kidney disease; B96.20 Unspecified Escherichia coli [E. coli] as the cause of diseases classified elsewhere; E87.5 Hyperkalemia; E11.40 Type 2 diabetes mellitus with diabetic neuropathy, unspecified; I12.9 Hypertensive chronic kidney disease with stage 1 through stage 4 chronic kidney disease, or unspecified chronic kidney disease; Z20.822 Contact with and (suspected) exposure to COVID-19; Z87.81 Personal history of (healed) traumatic fracture; Z88.2 Allergy status to sulfonamides; Z79.4 Long term (current) use of insulin; Z79.02 Long term (current) use of antithrombotics/antiplatelets; Z79.899 Other long term (current) drug therapy
CPT/HCPCS: 0241U; 36415; 36600; 70450; 71045; 71046; 73590; 74176; 78452; 80048; 80053; 80076; 81001; 82009; 82140; 82550; 82784; 82803; 82947; 83036; 83605; 83690; 83735; 83880; 83930; 83970; 84100; 84132; 84145; 84156; 84484; 85025; 85027; 85610; 85652; 85730; 86140; 86334; 87040; 87086; 87088; 87147; 87186; 87205; 87635; 93005; 93017; 93306; 96361; 96365; 96367; 96375; 97110; 97163; 99285; 99291; 99292; A9500; C1758; J0280; J0610; J2405; J2543; J2785; J3370; Q9957

== ENCOUNTER 2021-04-14 06:49 | Outpatient (REF) | payer OTHER, SELFPAY ==
[2021-04-14 07:11] LABS: Hemoglobin 14.6 g/dl (12.0-16.0); Mean Corpuscular HGB Conc 31.7 g/dl (31.0-35.0); Mean Corpuscular Hemoglobin 29.6 pg (27.0-33.0); Mean Corpuscular Volume 93.1 fL (80.0-98.0); Mean Platelet Volume 12.8 fL (9.4-12.3); Platelet Count 249 X10*3/uL (160-400); Red Blood Count 4.94 X10*6/uL (4.20-5.50); Red Cell Distribution Width 13.8 % (11.0-16.0); White Blood Count 8.6 X10*3/uL (4.8-10.8)
[2021-04-14 08:19] LABS: Alanine Aminotransferase 10 U/L (0-31); Albumin Level 3.1 g/dL (3.5-5.0); Alkaline Phosphatase 110 U/L (39-117); Anion Gap 15 (12-20); Aspartate Amino Transferase 19 U/L (5-31); Bilirubin Total 0.6 mg/dL (0.0-1.0); Blood Urea Nitrogen 20 mg/dL (9-16); Calcium 8.8 mg/dL (8.4-10.2); Carbon Dioxide 23 mmol/L (22-29); Chloride 102 mmol/L (96-108); Estimated Glomerular Filt Rate 28; Glucose Random 388 mg/dL (60-115); Potassium 4.6 mmol/L (3.3-5.1); Sodium 135 mmol/L (135-145); Total Protein 7.2 g/dL (6.5-8.0)
== END 2021-04-14 06:50 | disposition home or self-care (01) ==
LOC: HO.MMNH1L 06:49
PROVIDERS: Visit Provider Family Medicine
DX: E11.22 Type 2 diabetes mellitus with diabetic chronic kidney disease (principal); I12.9 Hypertensive chronic kidney disease with stage 1 through stage 4 chronic kidney disease, or unspecified chronic kidney disease; N18.9 Chronic kidney disease, unspecified
CPT/HCPCS: 36415; 80053; 85027

== ENCOUNTER 2021-04-19 19:00 | Outpatient (REF) | payer OTHER, SELFPAY ==
[2021-04-20 12:19] LABS: Appearance Urine CLOUDY; Color Urine YELLOW; Glucose Urine UA >=1000 MG/DL (NEG); Leukocyte Esterase Urine 1+ (NEG); Nitrite Urine NEG (NEG); PH 5.5 (5.0-8.0); Specific Gravity - Urine 1.025 (1.005-1.025); Urine Blood TRACE (NEG); Urine Ketones NEG (NEG); Urine Protein 2+ MG/DL (NEG-TRACE)
[2021-04-20 12:36] LABS: WBC Urine 30-49 /HPF (0-4)
[2021-04-20 12:37] LABS: Bacteria Urine 3+ /LPF; Squamous Epithelial Cell Urine 1+ /LPF
== END 2021-04-19 19:01 | disposition home or self-care (01) ==
LOC: HO.LNP 19:00
PROVIDERS: Visit Provider Family Medicine
DX: E11.9 Type 2 diabetes mellitus without complications (principal); N18.9 Chronic kidney disease, unspecified; R33.9 Retention of urine, unspecified
CPT/HCPCS: 81001; 87086; 87088; 87186

== ENCOUNTER 2021-04-21 | Outpatient (REF) | payer OTHER, SELFPAY ==
[2021-04-21 07:54] LABS: Hematocrit 43.8 % (37.0-47.0); Hemoglobin 14.1 g/dl (12.0-16.0); Mean Corpuscular HGB Conc 32.2 g/dl (31.0-35.0); Mean Corpuscular Volume 93.2 fL (80.0-98.0); Platelet Count 282 X10*3/uL (160-400); Red Cell Distribution Width 13.7 % (11.0-16.0); White Blood Count 13.7 X10*3/uL (4.8-10.8)
[2021-04-21 08:38] LABS: Anion Gap 18 (12-20); Blood Urea Nitrogen 27 mg/dL (9-16); Carbon Dioxide 22 mmol/L (22-29); Chloride 100 mmol/L (96-108); Estimated Glomerular Filt Rate 25; Glucose Random 405 mg/dL (60-115); Potassium 5.2 mmol/L (3.3-5.1); Sodium 135 mmol/L (135-145)
== END 2021-04-21 00:01 ==
LOC: HO.MMNH1L
PROVIDERS: Visit Provider Family Medicine
DX: E11.22 Type 2 diabetes mellitus with diabetic chronic kidney disease (principal); I12.9 Hypertensive chronic kidney disease with stage 1 through stage 4 chronic kidney disease, or unspecified chronic kidney disease; N18.9 Chronic kidney disease, unspecified
CPT/HCPCS: 36415; 80048; 85027

== ENCOUNTER 2021-04-28 01:05 | Outpatient (REF) | payer OTHER, SELFPAY | END 2021-04-28 01:06 | disposition home or self-care (01) | LOC: HO.MMNH1L 01:05 | PROVIDERS: Visit Provider Family Medicine | DX: Z13.89 Encounter for screening for other disorder (principal) ==

== ENCOUNTER → 2021-05-20 13:29 | Outpatient (BNVA) | payer OTHER, SELFPAY | PROVIDERS: PCP Internal Medicine Endocrinology, Diabetes & Metabolism; Visit Provider Internal Medicine ==

== ENCOUNTER → 2021-09-02 13:55 | Outpatient (BNVA) | payer OTHER, SELFPAY | PROVIDERS: PCP Internal Medicine Endocrinology, Diabetes & Metabolism; Visit Provider Internal Medicine | DX: Z01.810 Encounter for preprocedural cardiovascular examination (principal); I25.10 Atherosclerotic heart disease of native coronary artery without angina pectoris; I10 Essential (primary) hypertension; E11.8 Type 2 diabetes mellitus with unspecified complications | CPT/HCPCS: 93005 ==

== ENCOUNTER → 2022-04-22 10:45 | Outpatient (BNVA) | payer OTHER, SELFPAY | PROVIDERS: PCP Internal Medicine Endocrinology, Diabetes & Metabolism; Visit Provider Internal Medicine | DX: I10 Essential (primary) hypertension (principal) ==

== ENCOUNTER → 2022-07-27 08:49 | Outpatient (BNVA) | payer OTHER, SELFPAY | PROVIDERS: PCP Internal Medicine Endocrinology, Diabetes & Metabolism; Visit Provider Internal Medicine | DX: I25.10 Atherosclerotic heart disease of native coronary artery without angina pectoris (principal); I10 Essential (primary) hypertension; E11.8 Type 2 diabetes mellitus with unspecified complications | CPT/HCPCS: 93005 ==

== ENCOUNTER 2023-02-08 09:04 | Outpatient (AMB) | payer OTHER, SELFPAY ==
--- NOTE | 2023-02-08 09:08 | MHC.OFFVIS ---
Intake Vital Signs 02/08/23 09:09 Height 5 ft 6 in BMI Reason not done Patient refused/unable BP 150/60 H Blood Pressure Location Rt brachial Position Sitting Pulse 70 Intake Visit Reasons: 6 month follow up Intake Note: 6 month follow up Shiatsu Therapist Required: No Accompanied by: Family/Other Allergies Sulfa (Sulfonamide Antibiotics) Allergy (Mild, Verified 02/08/23 09:11) LOOPY, memory contrast dye Adverse Reaction (Mild, Uncoded 02/08/23 09:11) itchy Medication List - Last Reconciled 02/08/23 by Michael Harris MD aspirin (Adult Low Dose Aspirin) 81 mg PO DAILY atorvastatin 80 mg PO DAILY gabapentin 300 mg PO TID insulin glargine (Lantus U-100 Insulin) 50 units (0.5 mL) subcut DAILY insulin lispro (Humalog KwikPen (U-100) Insulin) 10 units (0.1 mL) subcut TID insulin lispro (Humalog U-100 Insulin) See Protocol units subcut QIDACHS isosorbide mononitrate ER 60 mg PO DAILY metoprolol tartrate 25 mg PO BID 90 days nitroglycerin 0.4 mg sublingual Q5M PRN 30 days omeprazole 20 mg PO DAILY polyethylene glycol 3350 17 grams PO DAILY PRN sodium zirconium cyclosilicate (Lokelma) 10 grams PO MOWEFR HPI HPI Comments History of Present Illness Details Caty returns for follow-up. In 2021, she had hospitalization to [facility] with what seems to be infection, but in that process she also had secondary type 2 LA. Underwent cardiac catheterization and stenting of the RCA. Numerous cardiovascular risk factors including diabetes, hypertension, dyslipidemia. Also has a history of prior carotid endarterectomy. Continues to have vision issues and she can barely see. States that she had retinal issue and that required surgery. However, from a cardiac standpoint she is generally stable. No recurrent angina. [facility] Medical History (Updated 09/02/21 @ 16:13 by Michael Harris MD) Complete amputation of left foot CKD (chronic kidney disease) stage 4, GFR 15-29 ml/min CKD (chronic kidney disease) Acute and subacute ischemic heart disease Acute hyperglycemia Amputation of left foot Kidney disease High cholesterol CAD (coronary artery disease) HTN (hypertension) Diabetes Surgical History History of cholecystectomy History of gastric stapling History of lumpectomy Family History Mother Diabetes Father Diabetes Social History Household Members: None Housing: Apartment Do you presently have visiting nurse or other home services: Yes (Visiting nurse) Alcohol intake: never Patient Tobacco Use Status: Never used Tobacco service: No Review of Systems Const Denies weakness ENT Denies dizziness Card Denies chest pain, Denies chest pain with activity, Denies syncope, Denies rapid heart rate, Denies pedal edema, Denies edema, Denies leg edema, Denies lightheadedness, Denies palpitations, Denies dyspnea, Denies dyspnea on exertion and Denies orthopnea Resp Denies cough, Denies dyspnea and Denies dyspnea on exertion GI Denies hematochezia and Denies change in stool character Musc Denies abnormal gait, Denies muscle cramps, Denies muscle weakness, Denies numbness, Denies radiating pain into limb and Denies tingling Neuro Denies abnormal gait, Denies dizziness, Denies syncope, Denies numbness, Denies tingling and Denies weakness Endo Denies palpitations Physical Exam Vital Signs: Last Vital Signs Pulse 70 02/08/23 09:09 BP 150/60 H 02/08/23 09:09 Const General: comfortable and no acute distress Orientation/consciousness: patient oriented x3 HEENT Other: Unremarkable Head: Yes normal to inspection Neck Neck: Yes normal visual inspection Chest Chest palpation & inspection: normal inspection of the chest Resp Auscultation: clear to auscultation bilaterally Cardio Palpation: normal PMI Heart sounds: S1 normal heart sound present, S2 normal heart sound present, no gallops, no murmurs and no rubs GI Palpation (GI): Soft to palpation Back/Spine/Pelvis Other: unremarkable Skin General skin exam: no rashes or lesions noted Neuro General: patient oriented x3 Extrem General: Yes normal to inspection Psych Mental Status: mental status grossly normal Assessment & Plan Assessment & Plan (1) Atherosclerotic cardiovascular disease: Code(s): I25.10 - Atherosclerotic heart disease of [place] coronary artery without angina pectoris Plan: Cardiac catheterization data reviewed 07/2021. The prior RCA stent was patent. 80% plaque rupture just distal to the RCA stent that was stented with drug-eluting stent. 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 Echocardiogram at [facility] 50-60%. Apical septum hypokinesis; limited wall motion assessment. Suboptimal study. She has been generally stable from cardiac standpoint over the last year. No recurrent angina. Due to question of bleeding in the eye, we stop the Plavix. Continue aspirin, beta-blockers, nitrates, statins. She can use sublingual nitroglycerin as needed. Last LDL-37 mg/dL. Triglycerides 110 mg/dL. (2) Essential hypertension: Code(s): I10 - Essential (primary) hypertension Plan: Blood pressure is on the higher side today. However, she states she gets visiting nurse at home and blood pressures are significantly lower and only in the 120s. Hence no changes made. Of note, she has also had low blood pressures and has used midodrine in the past. (3) Type 2 diabetes mellitus with unspecified complications: Code(s): E11.8 - Type 2 diabetes mellitus with unspecified complications Plan: In the past, uncontrolled sugars and hemoglobin A1c as much as >10%. Most recently, hemoglobin A1c is 7.5%. Plan Discussed with brother who came for appointment. Follow-up 6 months. Coding Level of Care Code Est Pt Level 4 (96668) Diagnoses Atherosclerotic cardiovascular disease I25.10 Essential hypertension I10 Type 2 diabetes mellitus with unspecified complications E11.8
[2023-02-08 09:09] VITALS: BP 150/60; PULSE 70
== END 2023-02-08 09:29 | disposition home or self-care (01) ==
PROVIDERS: Visit Provider Internal Medicine
DX: I25.10 Atherosclerotic heart disease of native coronary artery without angina pectoris (principal); I10 Essential (primary) hypertension; E11.8 Type 2 diabetes mellitus with unspecified complications
CPT/HCPCS: 99214

== ENCOUNTER → 2023-02-08 09:04 | Outpatient (BNVA) | payer OTHER, SELFPAY | PROVIDERS: Visit Provider Internal Medicine ==

== ENCOUNTER 2023-04-12 11:05 | Inpatient (IN) | payer OTHER, SELFPAY ==
--- NOTE | ~2023-04-12 | XR_ITS ---
EXAMINATION: XR ABDOMEN KUB CLINICAL INDICATION: Constipation COMPARISON: None available. TECHNIQUE: AP view of the abdomen. FINDINGS: There is scattered and oral contrast with gas in the colon without distention. There is air-filled small bowel loops but no distention. The stomach appears unremarkable. No organomegaly or mass visualized. No gross bony abnormality. XR/XR KUB IMPRESSION: Scattered oral contrast with gas in the colon without distention. No acute process in the abdomen.
--- NOTE | ~2023-04-12 | CT_ITS ---
EXAMINATION: CT ABDOMEN AND PELVIS WITHOUT CONTRAST CLINICAL INFORMATION: abd pain, allergic to con. COMPARISON: 01/22/2021. TECHNIQUE: Multidetector volumetric imaging was performed from the superior aspect of the liver through the pubic symphysis without contrast per contrast allergy. Sagittal and coronal reformatted images were obtained on the technologist workstation. This CT examination was performed using dose optimization techniques as appropriate, variously including the following: *Automated exposure control *Adjustment of mA and/or kV according to patient size (this includes techniques or standardized protocols for targeted exams where dose is matched to indication/reason for exam; i.e. extremities or head) *Use of iterative reconstruction technique DLP: 1188 mGy-cm. FINDINGS: LUNG BASES: Minimal dependent atelectasis. Chronic appearing changes seen in the visualized left breast tissue. Extensive vascular calcification in the coronaries and mitral annular region. Small hiatal hernia. LIVER, GALLBLADDER, BILIARY TREE: The non-contrast liver is normal in size, shape, and attenuation. No focal hepatic lesion or biliary ductal dilatation is present. The gallbladder is not visualized and presumably surgically absent. PANCREAS: Unremarkable. SPLEEN: Unremarkable. ADRENAL GLANDS: Unremarkable. KIDNEYS AND URETERS: Lobulated contour to the bilateral kidneys appears similar to the prior study. Tiny bilateral cysts would be difficult to exclude with this lobulated contour grossly this appears similar to the prior examination. No obstructive changes seen. Prominent vascular calcification but no obvious obstructing renal or ureteric calculi BLADDER: Unremarkable. GASTROINTESTINAL TRACT: Scattered colonic diverticula. No colonic wall thickening or pericolonic inflammatory changes. Mildly prominent loops of small bowel seen within the lower abdomen with mild physician point in the region of the small bowel containing midline ventral hernia ABDOMINAL WALL: Fat-containing ventral hernias and a small bowel containing ventral hernia with a relative transition point from mildly distended to decompressed distal ileum. LYMPHOVASCULAR STRUCTURES: Prominent vascular calcification within the visualized aorta iliac system. No bulky adenopathy. PELVIC VISCERA: Slight heterogeneity to the cervical region suggesting possibly nabothian cysts but grossly similar to the prior exam. OSSEUS STRUCTURES: Multilevel chronic appearing and degenerative changes in the spine CT/CT abdomen pelvis wo IV con IMPRESSION: Chronic appearing changes similar to the 01/22/2021 study. There is however a small bowel containing ventral hernia with a relative transition point from mildly distended small bowel proximal to this region and decompressed distal ileum after this hernia. Early or partial small bowel obstruction would be suspected with this appearance.
--- NOTE | ~2023-04-12 | XR_ITS ---
EXAMINATION: XR CHEST CLINICAL INFORMATION: NG tube COMPARISON: 01/24/2021 TECHNIQUE: Frontal view of the chest was obtained. FINDINGS: There is low lung volume bilaterally with mild cardiomegaly. There is NG tube with the tip in the stomach. Calcifications seen projecting from the left breast. XR/XR chest 1V IMPRESSION: NG tube in the stomach
[2023-04-12 11:17] VITALS: BP 146/63; PULSE 72; RESP 18; TEMP 36.2; O2SAT 96; BMI 41.2
--- NOTE | 2023-04-12 11:42 | ED_ITS ---
HPI - General Adult General Chief complaint: Abdominal Pain Stated complaint: ABD PAIN Time Seen by Provider: 04/12/23 11:42 Source: patient and EMS Mode of arrival: EMS Limitations: no limitations History of Present Illness HPI narrative: Patient is a 72 year old assigned female at with a history of IBS, DM, CAD, HTN, and blindness presenting to the emergency department today with abdominal pain, nausea, and vomiting. Patient states that over the last day she has had abdominal pain, nausea, and vomiting. Patient states that she is particularly worried about ischemic bowel because that is how her mother . Patient denies any dizziness, lightheadedness, fever, chills, blurry vision, double vision, loss of vision, chest pain, difficulty breathing, shortness of breath, back pain, night sweats, pain with urination, increased urinary frequency, increased urinary urgency, blood in her urine or stool, syncope or a near syncopal episode, recent trauma or falls, bowel incontinence, bladder incontinence, bowel retention, bladder retention, or any other complaints at this time. Onset (ago): day(s) Location: abdomen Severity: mild Severity scale (1-10): 3 Quality: aching Pain Consistency: constant Relieving factors: none Exacerbating factors: none Associated symptoms: nausea/vomiting Treatments prior to arrival: none Related Data Home Medications Medication Instructions Recorded Confirmed atorvastatin 80 mg tablet 80 mg PO DAILY 05/20/21 04/12/23 gabapentin 300 mg capsule 300 mg PO TID 05/20/21 04/12/23 omeprazole 20 mg capsule,delayed 20 mg PO DAILY 05/20/21 04/12/23 release Probiotic 1 cap PO DAILY 04/12/23 04/12/23 dulaglutide 0.75 mg/0.5 mL 0.75 mg subcut ABRAMS 04/12/23 04/12/23 subcutaneous pen injector (Trulicity) insulin glargine U-300 conc 300 66 unit subcut BEDTIME 04/12/23 04/12/23 unit/mL (3 mL) subcutaneous pen (Toujeo Max U-300 SoloStar) insulin lispro 100 unit/mL 0 sliding scale dose subcut TIDAC 04/12/23 04/12/23 subcutaneous pen (Humalog KwikPen (U-100) Insulin) methenamine hippurate 1 gram tablet 1 g PO DAILY 04/12/23 04/12/23 sodium zirconium cyclosilicate 10 10 g PO MOWEFR 04/12/23 04/12/23 gram oral powder packet (Lokelma) Previous Rx's Medication Instructions Recorded polyethylene glycol 3350 17 gram 17 g PO DAILY PRN Constipation #15 01/27/21 oral powder packet ea aspirin 81 mg tablet,delayed 81 mg PO DAILY #90 tabs 01/01/22 release (Adult Low Dose Aspirin) isosorbide mononitrate 60 mg 60 mg PO DAILY #90 tabs 03/20/22 tablet,extended release 24 hr metoprolol tartrate 25 mg tablet 25 mg PO BID 90 days #180 tabs 09/09/22 nitroglycerin 0.4 mg sublingual 0.4 mg sublingual Q5M PRN chest 02/23/23 tablet pain 30 days #25 tabs Allergies Allergy/AdvReac Type Severity Reaction Status Date / Time Sulfa (Sulfonamide Allergy Mild LOOPY, Verified 02/08/23 09:11 Antibiotics) memory contrast dye AdvReac Mild itchy Uncoded 02/08/23 09:11 Review of Systems 2 Constitutional: Constitutional: Reports no additional constitutional complaints, Denies chills, Denies fever(s) and Denies night sweats Eyes: Comments: patient blind at baseline ENT: Denies dizziness Cardiovascular: Cardiovascular: Reports no additional cardiovascular complaints, Denies chest pain, Denies lightheadedness, Denies Loss of Consciousness and Denies dyspnea Respiratory: Respiratory: Reports no additional respiratory complaints and Denies dyspnea Gastrointestinal: Gastrointestinal: Reports no additional gastrointestinal complaints, Reports abdominal pain, Denies melena, Denies hematochezia, Denies change in bowel habits, Denies change in stool character, Reports nausea and Reports vomiting Genitourinary: Genitourinary: Denies hematuria, Denies urinary frequency, Denies dysuria, Denies urinary incontinence, Denies urinary hesitancy and Denies urinary urgency Musculoskeletal: Musculoskeletal: Reports no additional musculoskeletal complaints, Denies numbness and Denies tingling Neurologic: Denies dizziness, Denies numbness and Denies tingling Psychiatric: Psychiatric: Reports no additional psychiatric complaints Endocrine: Endocrine: Reports no additional endocrine complaints Hematologic/Lymphatic: Hematologic/Lymphatic: Reports no additional hematologic/lymphatic complaints Allergic/Immunologic: Allergic/Immunologic: Reports no additional allergic/immunologic complaints PMFSH Past Medical History Attestation statement: The following information was validated with the patient. Source: old records reviewed and nursing notes reviewed Onset Date is defined in the Problem List Problems that require an onset date and time if occurred within 24 hrs of arrival to the ED Aortic Dissection and Rupture; Neurologic impairment; Cardiopulmonary Arrest; Endotracheal Intubation; Insertion or Replacement of Mechanical Circulatory Assist Device Medical History Complete amputation of left foot CKD (chronic kidney disease) stage 4, GFR 15-29 ml/min CKD (chronic kidney disease) Acute and subacute ischemic heart disease Acute hyperglycemia Amputation of left foot Kidney disease High cholesterol CAD (coronary artery disease) HTN (hypertension) Diabetes Surgical History History of cholecystectomy History of gastric stapling History of lumpectomy Family History Family History Mother Diabetes Father Diabetes Social History Social History Household Members: None Housing: Apartment Do you presently have visiting nurse or other home services: Yes (Visiting nurse) Alcohol intake: never Patient Tobacco Use Status: Never used Tobacco Smoked in Last 30 Days: No Use of substances other than those prescribed or required for medical reasons: No Advance Directives: Yes Advance Directives on File: Yes Advance Directives Date on File: 01/28/21 service: No Physical Exam ED Vital Signs: Vital Signs - 24 hr 04/12/23 11:17 04/12/23 16:58 04/12/23 17:02 Temperature 97.1 F 98.1 F Pulse Rate 72 94 Respiratory Rate 18 20 20 Blood Pressure 146/63 H 172/55 H Pulse Oximetry 96 Oxygen Delivery Method Room Air BMI result Body Mass Index 41.2 Const General: cooperative, no acute distress, alert and awake Nutritional Appearance: well nourished Orientation/consciousness: patient oriented x3 Limitations: no limitations HENMT Head: Yes normal to inspection and Yes atraumatic Ears: hearing grossly normal bilaterally and external ears normal General nose exam: Normal external nose present, no nasal discharge noted and no epistaxis Face and sinus: Yes normal facial exam, No abrasion and No laceration Mouth: Normal oral and palatal mucosa present, no drooling and no muffled voice Eyes Other: patient is blind General: appearance normal, both eyes and all related structures Neck Neck: Yes normal visual inspection, Yes full ROM and Yes no lymphadenopathy Chest Chest palpation & inspection: normal inspection of the chest Resp Effort & Inspection: normal respiratory effort and able to speak in complete sentences GI Inspection: Yes normal to inspection Palpation (GI): Soft to palpation, not firm, Tenderness to palpation present (GI) (generalized tenderness in all quadrants), no guarding and not rigid Neuro General: patient oriented x3 and moves all extremities Cognition (Neuro): normal cognition Motor exam (neuro): 5/5 motor strength present throughout Sensory Exam: Normal double simultaneous stimulation for sensation Coordination: [id number] test normal Extrem General: Yes normal to inspection, Yes full ROM and Yes capillary refill normal Psych Appearance: grossly normal Mental Status: mental status grossly normal Affect: normal affect Attitude: cooperative Thought process: Normal thought process present Thought content: Normal thought content present Insight: Good insight present (Psych) Course Reevaluation(s) Time: 15:21 Medications Administered Discontinued Medications Generic Name Dose Route Start Last Admin Trade Name Christopherq PRN Reason Stop Dose Admin Sodium Chloride 1,000 mls @ 999 mls/hr 04/12/23 12:00 04/12/23 16:55 Ns IV 04/12/23 13:00 Infused .Q1H1M JILLIAN Infusion Sodium Chloride 1,000 mls @ 999 mls/hr 04/12/23 16:30 04/12/23 16:57 Ns IV 04/12/23 17:30 999 mls/hr .Q1H1M JILLIAN Administration Morphine Sulfate 4 mg 04/12/23 16:19 04/12/23 16:58 Morphine Sulfate 4 Mg/Ml Cartridge IVPUSH 04/12/23 16:20 4 mg ONCE ONE Administration Protocol Ondansetron HCl 4 mg 04/12/23 12:00 04/12/23 12:47 Ondansetron Hcl 4 Mg/2 Ml Vial IVPUSH 04/12/23 12:01 4 mg ONCE ONE Administration Ondansetron HCl 4 mg 04/12/23 16:19 04/12/23 16:58 Ondansetron Hcl 4 Mg/2 Ml Vial IVPUSH 04/12/23 16:20 4 mg ONCE ONE Administration Sodium Zirconium Cyclosilicate 10 gm 04/12/23 17:13 04/12/23 17:37 Sodium Zirconium Cyclosilicate 10 Gm Powd.Pack PO 04/12/23 17:14 10 gm ONCE ONE Administration Medical Decision Making Medical Decision Making [facility] Narrative: Patient is a 72 year old assigned female at with a history of DM, CAD, and HTN presenting to the emergency department today with abdominal pain, nausea, and vomiting. Patient's physical exam was as noted in the physical exam portion of this note. Patient's blood work showed an elevated WBC count of 14.9, potassium of 6.2, BUN of 50, and CR of 2.33. Patient's urine showed is pending at this time. Patient's EKG was unremarkable. Patient's abdomen/pelvis CT showed a possible SBO. I spoke with the general surgery team who recommended admission to the hospital for electrolyte correction and hydration. States that he reviewed the imaging and does not believe it to be a true SBO but will consult. I spoke with the hospitalist team who agreed to admission. Patient's clinical presentation is not consistent with sepsis (@1800). I explained my physical exam findings as well as all test results to the patient. I answered all questions asked by the patient. Patient verbalized agreement and understanding with this treatment plan and admission. Differential Diagnosis Differential Diagnoses: The differential diagnosis associated with the presentation includes Ischemic bowel Bowel obstruction Abdominal pain Nausea Vomiting Viral illness Electrolyte abnormality Admission/Observation Consideration of admission/observation: Escalation of care including admission/observation considered Patient admitted. Consult Healthcare Provider Management of the patient was discussed with: Hospitalist (agreed to admission.) and Chain Mender (spoke to the general surgeon as noted in the MDM Rationale portion of this note.) Lab Data [facility] Lab Attestation statement: I reviewed the patient's lab results. My interpretation of these results are in the MDM Rationale portion of this note. 04/12/23 13:18 04/12/23 16:18 Labs: Lab Results 04/12/23 04/12/23 Range/Units 13:18 16:18 WBC 14.9 H (4.8-10.8) X10*3/uL RBC 4.26 (4.20-5.50) X10*6/uL Hgb 12.8 (12.0-16.0) g/dl Hct 41.3 (37.0-47.0) % MCV 96.9 (80.0-98.0) fL MCH 30.0 (27.0-33.0) pg MCHC 31.0 (31.0-35.0) g/dl RDW 14.6 (11.0-16.0) % Plt Count 281 (160-400) X10*3/uL MPV 11.4 (9.4-12.3) fL Immature Gran % (Auto) 0.4 (0.0-0.4) % Neut % (Auto) 85.7 H (45-73) % Lymph % (Auto) 5.3 L (20-40) % [place] % (Auto) 8.1 (2-11) % Eos % (Auto) 0.3 (0-4) % Baso % (Auto) 0.2 (0-2) % Lymph # (Auto) 0.8 L (1.2-4.9) X10*3/uL [place] # (Auto) 1.2 (0.1-1.2) X10*3/uL Eos # (Auto) 0.1 (0.0-0.4) X10*3/uL Baso # (Auto) 0.0 (0.0-0.2) X10*3/uL Abs Immat Gran (auto) 0.06 H (0.00-0.03) X10*3/uL Absolute Neuts (auto) 12.8 H (2.0-8.3) x10*3/uL Absolute Nucleated RBC 0.000 (0.0-0.012) X10*3/uL Nucleated RBC % (auto) 0.0 (0.0-0.2) /100WBC Sodium 142 (135-145) mmol/L Potassium 6.2 H* (3.3-5.1) mmol/L Chloride 113 H (96-108) mmol/L Carbon Dioxide 21 L (22-29) mmol/L Anion Gap 14 (12-20) BUN 50 H (9-16) mg/dL Creatinine 2.33 H (0.5-1.4) mg/dL Estim Creat Clear Calc 27.7 Estimated GFR 20 Random Glucose 166 H (60-115) mg/dL Calcium 8.5 (8.4-10.2) mg/dL Magnesium 2.0 (1.6-2.6) mg/dL Total Bilirubin 0.5 (0.0-1.0) mg/dL AST 16 (5-31) U/L ALT 7 (0-31) U/L Alkaline Phosphatase 102 (39-117) U/L Troponin I High Sens 41.9 H (<3.5-17.0) ng/L Total Protein 7.2 (6.5-8.0) g/dL Albumin 3.1 L (3.5-5.0) g/dL Influenza Type A (PCR) NEGATIVE (Negative) Influenza Type B (PCR) NEGATIVE (Negative) RSV RNA Qual (PCR) NEGATIVE (Negative) SARS-CoV-2 RNA (RT-PCR) NEGATIVE (Negative) Independent Interpretation I performed an independent interpretation of an: EKG and CT Scan Interpretation: My interpretation is in agreement with the radiologist's impression of this imaging study. - EXAMINATION: CT ABDOMEN AND PELVIS WITHOUT CONTRAST CLINICAL INFORMATION: abd pain, allergic to con. COMPARISON: 01/22/2021. TECHNIQUE: Multidetector volumetric imaging was performed from the superior aspect of the liver through the pubic symphysis without contrast per contrast allergy. Sagittal and coronal reformatted images were obtained on the technologist workstation. This CT examination was performed using dose optimization techniques as appropriate, variously including the following: *Automated exposure control *Adjustment of mA and/or kV according to patient size (this includes techniques or standardized protocols for targeted exams where dose is matched to indication/reason for exam; i.e. extremities or head) *Use of iterative reconstruction technique DLP: 1188 mGy-cm. FINDINGS: LUNG BASES: Minimal dependent atelectasis. Chronic appearing changes seen in the visualized left breast tissue. Extensive vascular calcification in the coronaries and mitral annular region. Small hiatal hernia. LIVER, GALLBLADDER, BILIARY TREE: The non-contrast liver is normal in size, shape, and attenuation. No focal hepatic lesion or biliary ductal dilatation is present. The gallbladder is not visualized and presumably surgically absent. PANCREAS: Unremarkable. SPLEEN: Unremarkable. ADRENAL GLANDS: Unremarkable. KIDNEYS AND URETERS: Lobulated contour to the bilateral kidneys appears similar to the prior study. Tiny bilateral cysts would be difficult to exclude with this lobulated contour grossly this appears similar to the prior examination. No obstructive changes seen. Prominent vascular calcification but no obvious obstructing renal or ureteric calculi BLADDER: Unremarkable. GASTROINTESTINAL TRACT: Scattered colonic diverticula. No colonic wall thickening or pericolonic inflammatory changes. Mildly prominent loops of small bowel seen within the lower abdomen with mild physician point in the region of the small bowel containing midline ventral hernia ABDOMINAL WALL: Fat-containing ventral hernias and a small bowel containing ventral hernia with a relative transition point from mildly distended to decompressed distal ileum. LYMPHOVASCULAR STRUCTURES: Prominent vascular calcification within the visualized aorta iliac system. No bulky adenopathy. PELVIC VISCERA: Slight heterogeneity to the cervical region suggesting possibly nabothian cysts but grossly similar to the prior exam. OSSEUS STRUCTURES: Multilevel chronic appearing and degenerative changes in the spine CT/CT abdomen pelvis wo IV con IMPRESSION: Chronic appearing changes similar to the 01/22/2021 study. There is however a small bowel containing ventral hernia with a relative transition point from mildly distended small bowel proximal to this region and decompressed distal ileum after this hernia. Early or partial small bowel obstruction would be suspected with this appearance. Dictated By: Jeison Dockery MD Signed By: Electronically signed by Jeison Dockery MD 04/12/23 1817 - Vent. Rate: 078 BPM Atrial Rate: 078 BPM P-R Int: 222 ms QRS Dur: 086 ms QT Int: 380 ms P-R-T Axes: 085 -13 081 degrees QTc Int: 433 ms Poor data quality Sinus rhythm with 1st degree A-V block Inferior infarct , age undetermined Anterior infarct (cited on or before 12-APR-2023) ST & T wave abnormality, consider lateral ischemia Abnormal ECG When compared with ECG of 24-JAN-2021 16:22, Poor data quality in current ECG precludes serial comparison Electronically Signed By:ELICEO ZAMORA MD Dictated By: Eliceo Zamora MD Signed By: Electronically signed by Eliceo Zamora MD 04/12/23 1750 Radiology Impression Discussion of test interpretation with radiology: I have reviewed the radiologist's reading. Independent Historian Clinical information obtained from an independent historian. History obtained from or confirmed by: EMS (EMS provided additional history and confirmed the history provided by the patient.) Chronic Conditions Patient?s care impacted by: Diabetes and Hypertension Critical Care Time Critical Care Time Critical Care Time: Yes Total Critical Care Time: 55 Attestation: I spent 55 minutes of Critical Care Time with this patient. This does not include time spent on separately reported billable procedures. Discharge Plan Discharge Clinical Impression: Abdominal pain, Acute kidney injury, Acute hyperkalemia Patient Disposition: Admitted As Inpatient Prescriptions: No Action isosorbide mononitrate 60 mg tablet extended release 24 hr 60 mg PO DAILY Qty: 90 3RF metoprolol tartrate 25 mg tablet 25 mg PO BID 90 Days Qty: 180 3RF nitroglycerin 0.4 mg tablet, sublingual 0.4 mg sublingual Q5M PRN (Reason: chest pain) 30 Days Qty: 25 1RF Rx Instructions: do not exceed 3 doses per episode polyethylene glycol 3350 17 gram Powder In Packet 17 g PO DAILY PRN (Reason: Constipation) Qty: 15 0RF atorvastatin 80 mg tablet 80 mg PO DAILY methenamine hippurate 1 gram tablet 1 g PO DAILY Trulicity 0.75 mg/0.5 mL pen injector 0.75 mg subcut ABRAMS Toujeo Max U-300 SoloStar 300 unit/mL (3 mL) Insulin Pen 66 unit SUBCUT BEDTIME Lokelma 10 gram Powder In Packet 10 g PO MOWEFR Probiotic 1 cap PO DAILY insulin lispro [Humalog KwikPen Insulin] 100 unit/mL insulin pen 0 sliding scale dose subcut TIDAC Protocol: Insulin Correction Scale Less than or equal to 110 ---- Give (units): 0 111 to 150 Give (units): 0 151 to 200 Give (units): 2 201 to 250 Give (units): 4 251 to 300 Give (units): 6 301 to 350 Give (units): 8 Greater than 350 Give (units): 10 Call MD if Blood Glucose > : 350 gabapentin 300 mg capsule 300 mg PO TID omeprazole 20 mg capsule,delayed release(DR/EC) 20 mg PO DAILY aspirin [Adult Low Dose Aspirin] 81 mg tablet,delayed release (DR/EC) 81 mg PO DAILY Qty: 90 3RF
--- NOTE | 2023-04-12 11:56 | ECG_ITS ---
Test Reason : nausea/ light headedness Blood Pressure : / mmHG Vent. Rate : 078 BPM Atrial Rate : 078 BPM P-R Int : 222 ms QRS Dur : 086 ms QT Int : 380 ms P-R-T Axes : 085 -13 081 degrees QTc Int : 433 ms Poor data quality Sinus rhythm with 1st degree A-V block Inferior infarct , age undetermined Anterior infarct (cited on or before 12-APR-2023) ST & T wave abnormality, consider lateral ischemia Abnormal ECG When compared with ECG of 24-JAN-2021 16:22, Poor data quality in current ECG precludes serial comparison Referred By: Vinita Rivera Electronically Signed By:RUBÉN ZAMORA MD
[2023-04-12] MEDS: 0.9 % Sodium Chloride 1,000 ML 999 ML IV (16:57)
[2023-04-12 16:58] VITALS: RESP 20
[2023-04-12 16:58] LABS: Alanine Aminotransferase 7 U/L (0-31); Albumin Level 3.1 g/dL (3.5-5.0); Alkaline Phosphatase 102 U/L (39-117); Anion Gap 14 (12-20); Aspartate Amino Transferase 16 U/L (5-31); Bilirubin Total 0.5 mg/dL (0.0-1.0); Blood Urea Nitrogen 50 mg/dL (9-16); Calcium 8.5 mg/dL (8.4-10.2); Carbon Dioxide 21 mmol/L (22-29); Chloride 113 mmol/L (96-108); Creatinine Clr Calc Pharmacy 27.7; Estimated Glomerular Filt Rate 20; Glucose Random 166 mg/dL (60-115); Potassium 6.2 mmol/L (3.3-5.1); Sodium 142 mmol/L (135-145); Total Protein 7.2 g/dL (6.5-8.0)
[2023-04-12] MEDS: Morphine Sulfate 4 MG/ML CARTRIDGE IVPUSH (16:58)
[2023-04-12] MEDS: ondansetron HCL 4 MG/2 ML VIAL IVPUSH (16:58)
[2023-04-12 17:02] VITALS: BP 172/55; PULSE 94; RESP 20; TEMP 36.7
[2023-04-12] MEDS: Sodium Zirconium Cyclosilicate 10 GM POWD.PACK PO (17:37)
--- NOTE | 2023-04-12 17:53 | PC.NURSE ---
assumed care of pt at 1500. pt a&ox4, vss, reports recent poor PO intake, nausea, vomiting, abd pain, last bm 3 days ago. pt is visually impaired, limited vision, no blood pressures on left arm. bladder scan showed 77ml. pt medicated per MAR, 1L NS running. pt pending admission orders.
--- NOTE | 2023-04-12 17:54 | PHA.MEDREC ---
Pharmacy Consult ? Medication Reconciliation Pharmacy has completed the medication reconciliation. Patient confirmed medications. List from [facility] is not up to date. Patient did report still using Lokelma on . Aixa Arredondo, JohnsonD
[2023-04-12 20:35] VITALS: BP 198/66; PULSE 88; RESP 19; O2SAT 96
[2023-04-12] MEDS: Dextrose 5 % and 0.9 % NaCl 1,000 ML 100 ML IVCONT (20:48)
--- NOTE | 2023-04-12 20:48 | PM.IMHP ---
History of Present Illness Date of Service: 04/12/23 Attending physician on admission: Codey Hwang Chief Complaint: Abdominal pain with nausea and vomiting x1 day This is a 72 year old legally blind and obese (BMI 41.2) white female with past medical history of IBS (with constipation), CAD, T2DM (on Insulin), hypertension and s/p left foot amputation who presented to the emergency room earlier in the day complaining of severe generalized abdominal pain that started a last night with associated multiple episodes of non-projectile, non-bloody emesis. The onset of her symptoms was spontaneous. She denies any recent travel, sick contacts or eating outside. She has had no diarrhea and is instead she is constipated. Initial evaluation in the emergency room revealed elevated blood pressure and initial lab work done was notable for worsening renal insufficiency with a serum creatinine of 2.33 (up from 1.99 a year ago), hyperkalemia with a serum potassium of 6.2 mmol/L, elevated WBC count of 14.9 k/mm3, and elevated initial HSTnI at 41.9 ng/L. She however has no chest pain and initial EKG done did not reveal any acute ischemic changes (it showed normal sinus rhythm at 78 bpm with first degree heart block and isolated [address]-segment elevation in V1). Urinalysis was ordered but she has yet to make urine despite receiving a liter of IV fluids. Initial CT scan of the abdomen and pelvis did not show any acute pathology. While in the ER, she received a dose of IV Morphine, Zofran and oral Lokelma. She also received a liter of IV fluids. Admission was then requested for continued care. Review of Systems Review of Systems: Yes all other systems are reviewed and are negative [facility] Medical History Complete amputation of left foot CKD (chronic kidney disease) stage 4, GFR 15-29 ml/min CKD (chronic kidney disease) Acute and subacute ischemic heart disease Acute hyperglycemia Amputation of left foot Kidney disease High cholesterol CAD (coronary artery disease) HTN (hypertension) Diabetes Family History Mother Diabetes Father Diabetes Surgical History History of cholecystectomy History of gastric stapling History of lumpectomy Social History Household Members: None Housing: Apartment Do you presently have visiting nurse or other home services: Yes (Visiting nurse) Alcohol intake: never Patient Tobacco Use Status: Never used Tobacco Smoked in Last 30 Days: No Use of substances other than those prescribed or required for medical reasons: No Advance Directives: Yes Advance Directives on File: Yes Advance Directives Date on File: 01/28/21 Nutrition Risks: No Nutritional Risk service: No Meds Allergies Allergy/AdvReac Type Severity Reaction Status Date / Time Sulfa (Sulfonamide Allergy Mild LOOPY, Verified 02/08/23 09:11 Antibiotics) memory contrast dye AdvReac Mild itchy Uncoded 02/08/23 09:11 Home Medications Medication Instructions Recorded Confirmed Last Taken Type atorvastatin 80 mg tablet 80 mg PO DAILY 05/20/21 04/12/23 04/11/22 History gabapentin 300 mg capsule 300 mg PO TID 05/20/21 04/12/23 04/11/22 History omeprazole 20 mg capsule,delayed 20 mg PO DAILY 05/20/21 04/12/23 04/11/22 History release Probiotic 1 cap PO DAILY 04/12/23 04/12/23 04/11/22 History dulaglutide 0.75 mg/0.5 mL 0.75 mg subcut ABRAMS 04/12/23 04/12/23 04/11/22 History subcutaneous pen injector (Trulicity) insulin glargine U-300 conc 300 66 unit subcut BEDTIME 04/12/23 04/12/23 04/11/22 History unit/mL (3 mL) subcutaneous pen (Toujeo Max U-300 SoloStar) insulin lispro 100 unit/mL 0 sliding scale dose subcut TIDAC 04/12/23 04/12/23 04/11/22 History subcutaneous pen (Humalog KwikPen (U-100) Insulin) methenamine hippurate 1 gram tablet 1 g PO DAILY 04/12/23 04/12/23 04/11/22 History sodium zirconium cyclosilicate 10 10 g PO MOWEFR 04/12/23 04/12/23 04/12/22 History gram oral powder packet (Lokelma) Physical Exam Vital Signs and Narrative: Vital Signs: Last Vital Signs Temp 98.1 F 04/12/23 17:02 Pulse 94 04/12/23 17:02 Resp 20 04/12/23 17:02 BP 172/55 H 04/12/23 17:02 Pulse Ox 96 04/12/23 11:17 O2 Del Method Room Air 04/12/23 11:17 BMI result Body Mass Index 41.2 General: Obese WF in bed. Awake, alert and oriented x 4. No apparent distress Eyes: No pallor or jaundice. PERRLA, EOMI HENT: Dry oral mucus membranes. No oropharyngeal lesions. Neck: Supple. No cervical adenopathy. No JVD Cardiovascular: Regular rate and rhythm. Normal heart sounds. No murmurs, rubs or gallops. No JVD. Trace edema in LLE.. Respiratory: Normal respiratory effort with no accessory muscle use. CTAB. Gastrointestinal: Abdomen is obese, soft, non-tender, non-distended. NABS. No hepatosplenomegaly Extremities: RLE in a boot/cast (she fractured her left ankle). No edema. No calf tenderness. Good peripheral pulses Skin: Warm/Dry. No rashes. No mottling. Capillary refill is < 2 seconds Neurological: AAOx4. Intact speech & cognition. CN II - XII grossly intact but not individually tested. No motor or sensory deficits Hematologic: No bleeding. No ecchymosis. No swollen or tender lymph nodes. Psychiatric: Cooperative. Appropriate mood and affect. Results Labs 04/12/23 13:18 04/12/23 16:18 Labs: Laboratory Results - last 24 hr 04/12/23 04/12/23 13:18 16:18 MCV 96.9 MCH 30.0 MCHC 31.0 RDW 14.6 Plt Count 281 MPV 11.4 Immature Gran % (Auto) 0.4 Neut % (Auto) 85.7 H Lymph % (Auto) 5.3 L [place] % (Auto) 8.1 Eos % (Auto) 0.3 Baso % (Auto) 0.2 Lymph # (Auto) 0.8 L [place] # (Auto) 1.2 Eos # (Auto) 0.1 Baso # (Auto) 0.0 Abs Immat Gran (auto) 0.06 H Absolute Neuts (auto) 12.8 H Absolute Nucleated RBC 0.000 Nucleated RBC % (auto) 0.0 Anion Gap 14 Estim Creat Clear Calc 27.7 Estimated GFR 20 Random Glucose 166 H Calcium 8.5 Magnesium 2.0 Total Bilirubin 0.5 AST 16 ALT 7 Alkaline Phosphatase 102 Total Protein 7.2 Albumin 3.1 L Influenza Type A (PCR) NEGATIVE Influenza Type B (PCR) NEGATIVE RSV RNA Qual (PCR) NEGATIVE SARS-CoV-2 RNA (RT-PCR) NEGATIVE ECG ECG interpretation date: 04/12/23 ECG interpretation time: 22:12 Prior ECG tracings: available for review Interpretation: Normal sinus rhythm at 78 bpm with first degree heart block and isolated [address]-segment elevation in V1 Imaging Radiologist's Impressions: Impressions Abdomen/Pelvis CT 04/12/23 17:50 Chronic appearing changes similar to the 01/22/2021 study. There is however a small bowel containing ventral hernia with a relative transition point from mildly distended small bowel proximal to this region and decompressed distal ileum after this hernia. Early or partial small bowel obstruction would be suspected with this appearance. Assessment and Plan (1) Acute kidney injury: Status: Acute (2) Acute hyperkalemia: Status: Acute (3) Abdominal pain: Qualifiers: Abdominal location: generalized Qualified Code(s): R10.84 - Generalized abdominal pain Status: Acute (4) Type 2 diabetes mellitus with unspecified complications: Status: Acute (5) Essential hypertension: Status: Acute (6) Leucocytosis: Qualifiers: Leukocytosis type: leukemoid reaction Qualified Code(s): D72.823 - Leukemoid reaction Status: Acute (7) Elevated troponin I level: Status: Acute Plan 72 year old legally blind and obese (BMI 41.2) white female with past medical history of IBS (with constipation), CAD, T2DM (on Insulin), hypertension and s/p left foot amputation here with 1. Abdominal pain with nausea and vomiting - etiology is unclear at this time - CT abdomen and pelvis is not revealing - she has a normal serum lactate - she is currently pain free - admit and continue symptomatic care - general surgery for evaluation in AM 2. Hyperkalemia - noted with elevated serum potassium at 6.2 - she is on Lokelma at home so likely that this a chronic problem - continue Lokelma - recheck in AM 3. Acute renal failure - noted with mildly worsened renal function with creatinine up to 2.33 (was 1.99 a year ago) - likely dehydrated after multiple episodes of nausea and vomiting - will give some IV fluids and re-evaluate in the morning 4. Leukocytosis - however no obvious foci of infection (UA pending though) - likely reactive - hold off any antibiotics pending urine culture 5. Elevated Troponin I - HSTnI elevated at 41.9 - recheck 6. Type 2 diabetes mellitus - insulin requiring - hold Lantus tonight and restart tomorrow 7. Hypertension - BP control is not optimal at this time - restart her home meds and continue to closely follow while she is in-house DVT: SC Heparin CODE STATUS: Full code Admission for at least 2 midnights for management of acute renal failure and hyperkalemia. Also still with unclear cause of her abdominal pain, N/V and surgery consult is pending. Total time managing care of this patient today: 75 minutes. Quality Stroke Does the patient have a stroke diagnosis?: No VTE Prior VTE?: No VTE Risk Level:: Medical - moderate - high VTE Device Contraindication: Treatment Not Indicated VTE Drug Contraindication: N/A - Med Ordered
[2023-04-12 20:59] VITALS: BP 173/55; PULSE 89; RESP 16; O2SAT 96
[2023-04-12 21:10] LABS: Lactic Acid 0.8 mmol/L (0.5-2.0)
--- NOTE | 2023-04-12 22:11 | PC.NURSE ---
provider notified of order for D5NS in T2DM - per provider will change to LR. flds discontinued pending new order.
[2023-04-12] MEDS: Docusate Sodium 100 MG CAPSULE PO (22:18)
[2023-04-12] MEDS: Heparin Sodium,Porcine 5,000 UNIT/ML VIAL 5000 UNIT SUBCUT (22:18)
[2023-04-12] MEDS: Gabapentin 300 MG CAPSULE PO (22:19)
[2023-04-12] MEDS: Metoprolol Tartrate 25 MG TABLET PO (22:19)
[2023-04-12 23:29] LABS: Appearance Urine Cloudy; Color Urine Yellow; Glucose Urine UA Negative (Negative); Leukocyte Esterase Urine Large (3+) (Negative); Nitrite Urine Negative (Negative); PH 5.5 (5.0-9.0); Specific Gravity - Urine 1.015 (1.005-1.025); UMIC TRIGGER UACC YES; Urine Blood Trace (Negative); Urine Ketones Negative (Negative); Urine Protein 100 (2+) mg/dL (Neg-Trace)
[2023-04-12 23:31] LABS: Bacteria Urine 4+ (None Seen); Hyaline Casts Urine 0-2 /LPF (0-2); Squamous Epithelial Cell Urine 0-2 /HPF (0-2); UACC Culture Trigger YES; WBC Urine >50 /HPF (0-5)
[2023-04-13] VITALS (21 sets, daily range): BP systolic 132–192; BP diastolic 32–68; PULSE 69–88; RESP 11–20; TEMP 36.1–36.7; O2SAT 92–100
[2023-04-13] MEDS: 0.9 % Sodium Chloride 1,000 ML 250 ML IVCONT (02:18)
[2023-04-13] MEDS: Heparin Sodium,Porcine 5,000 UNIT/ML VIAL 5000 UNIT SUBCUT (05:42)
[2023-04-13] MEDS: Omeprazole 20 MG CAPSULE.DR PO (05:42)
[2023-04-13 06:28] LABS: MANUAL DIFF FLAG NO
[2023-04-13 06:36] LABS: Basophils Percent Auto 0.2 % (0-2); Eosinophils Absolute Auto 0.4 X10*3/uL (0.0-0.4); Hematocrit 38.2 % (37.0-47.0); Hemoglobin 11.5 g/dl (12.0-16.0); Imm Gran Abs Auto 0.04 X10*3/uL (0.00-0.03); Imm Gran Pct Auto 0.4 % (0.0-0.4); Lymphocytes Absolute Auto 1.8 X10*3/uL (1.2-4.9); Lymphocytes Percent Auto 19.2 % (20-40); Mean Corpuscular HGB Conc 30.1 g/dl (31.0-35.0); Mean Corpuscular Hemoglobin 29.4 pg (27.0-33.0); Mean Corpuscular Volume 97.7 fL (80.0-98.0); Mean Platelet Volume 12.1 fL (9.4-12.3); Monocytes Absolute Auto 1.1 X10*3/uL (0.1-1.2); Monocytes Percent Auto 11.2 % (2-11); Neutrophils Absolute Auto 6.1 x10*3/uL (2.0-8.3); Platelet Count 261 X10*3/uL (160-400); Red Blood Count 3.91 X10*6/uL (4.20-5.50); Red Cell Distribution Width 14.8 % (11.0-16.0); White Blood Count 9.4 X10*3/uL (4.8-10.8)
[2023-04-13 06:51] LABS: Alanine Aminotransferase 6 U/L (0-31); Albumin Level 2.6 g/dL (3.5-5.0); Alkaline Phosphatase 91 U/L (39-117); Anion Gap 12 (12-20); Aspartate Amino Transferase 18 U/L (5-31); Bilirubin Total 0.7 mg/dL (0.0-1.0); Blood Urea Nitrogen 46 mg/dL (9-16); Calcium 7.9 mg/dL (8.4-10.2); Carbon Dioxide 19 mmol/L (22-29); Chloride 117 mmol/L (96-108); Creatinine Clr Calc Pharmacy 29.8; Estimated Glomerular Filt Rate 22; Glucose Random 158 mg/dL (60-115); Potassium 5.6 mmol/L (3.3-5.1); Sodium 142 mmol/L (135-145); Total Protein 6.5 g/dL (6.5-8.0)
[2023-04-13 07:17] LABS: Glucose, Whole Blood 145 mg/dL (60-115)
--- NOTE | 2023-04-13 07:39 | PC.NURSE ---
patient a&ox3, lungs clear, pt oob to commode 2 person heavy assist with wlkter, lotion applied to lower back per patient request, pt currently denying abd pain, poc obtained 145, pt legally blind, call morelos within reach, will continue to monitor.
--- NOTE | 2023-04-13 07:44 | MHC.EDTECH ---
Pt 2 assist to and from commode. Needed assistance with cleaning, applying new pad. Pt back in bed, repositioned with pillows in place. Call morelos within reach.
[2023-04-13] MEDS: Docusate Sodium 100 MG CAPSULE PO (08:41)
[2023-04-13] MEDS: Metoprolol Tartrate 25 MG TABLET PO (08:41)
[2023-04-13] MEDS: Aspirin Enteric Coated 81 MG TABLET.DR PO (08:41)
[2023-04-13] MEDS: Gabapentin 300 MG CAPSULE PO (08:41)
[2023-04-13] MEDS: Isosorbide Mononitrate 60 MG TAB.ER.24H PO (08:41)
[2023-04-13] MEDS: Atorvastatin Calcium 80 MG TABLET PO (08:41)
[2023-04-13] MEDS: ondansetron HCL 4 MG/2 ML VIAL IVPUSH (08:47)
[2023-04-13] MEDS: 0.9 % Sodium Chloride Flush 3 ML SYRINGE IVFLUSH (08:49)
[2023-04-13] MEDS: Acetaminophen 325 MG TABLET 650 MG PO (09:27)
[2023-04-13] MEDS: Sodium Zirconium Cyclosilicate 10 GM POWD.PACK PO (09:31)
--- NOTE | 2023-04-13 09:49 | PC.NURSE ---
pt has insulin sensor that checks insulin, pt stating it is reading high because she had no insulin this morning- patient is tearful and upset wanting anxiety meds as well. will speak with dr. gaytan about medication for patient. dr. fernández also requesting pt to be npo except meds.
[2023-04-13 09:58] LABS: Glucose, Whole Blood 209 mg/dL (60-115)
--- NOTE | 2023-04-13 10:11 | P.CONAN_ITS ---
[facility] Active Problems Active Problems: All Active Problems (Updated 04/12/23 @ 22:35 by Codey Hwang MD) Elevated troponin I level (Acute) Leucocytosis (Acute) Acute hyperkalemia (Acute) Acute kidney injury (Acute) Abdominal pain (Acute) Preoperative cardiovascular examination (Acute) Type 2 diabetes mellitus with unspecified complications (Acute) Essential hypertension (Acute) Atherosclerotic cardiovascular disease (Acute) Past Medical History Medical History Complete amputation of left foot CKD (chronic kidney disease) stage 4, GFR 15-29 ml/min CKD (chronic kidney disease) Acute and subacute ischemic heart disease Acute hyperglycemia Amputation of left foot Kidney disease High cholesterol CAD (coronary artery disease) HTN (hypertension) Diabetes Family History Family History Mother Diabetes Father Diabetes Family history of problems with anesthesia: No Surgical History Surgical History History of cholecystectomy History of gastric stapling History of lumpectomy History of Problems with Anesthesia: No Social History Social History Household Members: None Housing: Apartment Do you presently have visiting nurse or other home services: Yes (Visiting nurse) Alcohol intake: never Patient Tobacco Use Status: Never used Tobacco Advance Directives Date on File: 01/28/21 service: No Meds Allergies Allergy/AdvReac Type Severity Reaction Status Date / Time Sulfa (Sulfonamide Allergy Mild LOOPY, Verified 02/08/23 09:11 Antibiotics) memory contrast dye AdvReac Mild itchy Uncoded 02/08/23 09:11 Active Medications: Current Medications Acetaminophen (Acetaminophen 325 Mg Tablet) 650 mg PO Q6H PRN PRN Reason: Pain, Mild (Pain Scale 1-3) Last Admin: 04/13/23 09:27 Dose: 650 mg Al Hydroxide/Mg Hydroxide (Magnesium Hydrox/Alum Hydrox 30 Ml Oral.Susp) 30 ml PO Q4H PRN PRN Reason: Heartburn/Nausea Aspirin (Aspirin Enteric Coated 81 Mg Tablet.) 81 mg PO DAILY [facility] Last Admin: 04/13/23 08:41 Dose: 81 mg Atorvastatin Calcium (Atorvastatin Calcium 80 Mg Tablet) 80 mg PO DAILY [facility] Last Admin: 04/13/23 08:41 Dose: 80 mg Dextrose (Dextrose 50 % 25 Gm/50 Ml Syringe) 25 gm IVPUSH Q15M PRN; Protocol PRN Reason: per Hypoglycemia Standing Ord. Docusate Sodium (Docusate Sodium 100 Mg Capsule) 100 mg PO BID [facility] Last Admin: 04/13/23 08:41 Dose: 100 mg Gabapentin (Gabapentin 300 Mg Capsule) 300 mg PO TID [facility] Last Admin: 04/13/23 08:41 Dose: 300 mg Glucose (Glucose Gel 15 Gm Gel..Gram.) 15 gm PO Q15M PRN; Protocol PRN Reason: per Hypoglycemia Standing Ord. Heparin Sodium (Porcine) (Heparin Sodium,Porcine 5,000 Unit/Ml Vial) 5,000 unit SUBCUT Q8H [facility] Last Admin: 04/13/23 05:42 Dose: 5,000 unit Insulin Human Lispro (Insulin Lispro 100 Unit/Ml 3 Ml Vial) 0 unit SUBCUT QIDACHS [facility]; Protocol Last Admin: 04/13/23 07:41 Dose: Not Given Isosorbide Mononitrate (Isosorbide Mononitrate 60 Mg Tab.Er.24h) 60 mg PO DAILY [facility]; Protocol Last Admin: 04/13/23 08:41 Dose: 60 mg Magnesium Hydroxide (Milk Of Magnesia 30 Ml Oral.Susp) 30 ml PO DAILY PRN PRN Reason: Constipation Melatonin (Melatonin 3 Mg Tablet) 6 mg PO BEDTIME PRN PRN Reason: Insomnia Methenamine Hippurate (Methenamine Hippurate 1 Gm Tablet) 1 gm PO DAILY@1200 [facility] Metoprolol Tartrate (Metoprolol Tartrate 25 Mg Tablet) 25 mg PO BID [facility]; Protocol Last Admin: 04/13/23 08:41 Dose: 25 mg Morphine Sulfate (Morphine Sulfate 4 Mg/Ml Cartridge) 2 mg IVPUSH Q4H PRN; Protocol PRN Reason: Pain, Severe (Pain Scale 7-10) Nitroglycerin (Nitroglycerin 0.4 Mg Tab.Subl) 0.4 mg SUBLINGUAL Q5M PRN PRN Reason: chest pain Omeprazole (Omeprazole 20 Mg Capsule.Dr) 20 mg PO DAILY@0630 [facility] Last Admin: 04/13/23 05:42 Dose: 20 mg Ondansetron HCl (Ondansetron Hcl 4 Mg/2 Ml Vial) 4 mg IVPUSH Q8H PRN PRN Reason: Nausea and Vomiting Last Admin: 04/13/23 08:47 Dose: 4 mg Senna (Sennosides 8.6 Mg Tablet) 17.2 mg PO BEDTIME PRN PRN Reason: Constipation Sodium Chloride (0.9 % Sodium Chloride Flush 3 Ml Syringe) 3 ml IVFLUSH QSHIFT [facility] Last Admin: 04/13/23 08:49 Dose: 3 ml Sodium Zirconium Cyclosilicate (Sodium Zirconium Cyclosilicate 10 Gm Powd.Pack) 10 gm PO MoWeFr@0900 [facility] Home Medications Medication Instructions Recorded Confirmed Last Taken Type atorvastatin 80 mg tablet 80 mg PO DAILY 05/20/21 04/12/23 04/11/22 History gabapentin 300 mg capsule 300 mg PO TID 05/20/21 04/12/23 04/11/22 History omeprazole 20 mg capsule,delayed 20 mg PO DAILY 05/20/21 04/12/23 04/11/22 Histo ry release Probiotic 1 cap PO DAILY 04/12/23 04/12/23 04/11/22 History dulaglutide 0.75 mg/0.5 mL 0.75 mg subcut ABRAMS 04/12/23 04/12/23 04/11/22 History subcutaneous pen injector (Trulicity) insulin glargine U-300 conc 300 66 unit subcut BEDTIME 04/12/23 04/12/23 04/11/22 History unit/mL (3 mL) subcutaneous pen (Toujeo Max U-300 SoloStar) insulin lispro 100 unit/mL 0 sliding scale dose subcut TIDAC 04/12/23 04/12/23 04/11/22 History subcutaneous pen (Humalog KwikPen (U-100) Insulin) methenamine hippurate 1 gram tablet 1 g PO DAILY 04/12/23 04/12/23 04/11/22 History sodium zirconium cyclosilicate 10 10 g PO MOWEFR 04/12/23 04/12/23 04/12/22 History gram oral powder packet (Lokelma) Exam Height,Weight and Vital Signs: Height 5 ft 6 in Weight 115.666 kg Last Vital Signs Temp 97.8 F 04/13/23 09:53 Pulse 88 04/13/23 09:53 Resp 16 04/13/23 09:53 BP 189/56 H 04/13/23 09:53 Pulse Ox 94 04/13/23 09:53 O2 Del Method Room Air 04/13/23 09:53 O2 Flow Rate 96 04/13/23 01:32 Pertinent Lab Results Pertinent Lab Results: Laboratory Tests 04/12/23 04/12/23 04/12/23 13:18 16:18 20:55 WBC 14.9 H RBC 4.26 Hgb 12.8 Hct 41.3 MCV 96.9 MCH 30.0 MCHC 31.0 RDW 14.6 Plt Count 281 MPV 11.4 Immature Gran % (Auto) 0.4 Neut % (Auto) 85.7 H Lymph % (Auto) 5.3 L [place] % (Auto) 8.1 Eos % (Auto) 0.3 Baso % (Auto) 0.2 Lymph # (Auto) 0.8 L [place] # (Auto) 1.2 Eos # (Auto) 0.1 Baso # (Auto) 0.0 Abs Immat Gran (auto) 0.06 H Absolute Neuts (auto) 12.8 H Absolute Nucleated RBC 0.000 Nucleated RBC % (auto) 0.0 Sodium 142 Potassium 6.2 H* Chloride 113 H Carbon Dioxide 21 L Anion Gap 14 BUN 50 H Creatinine 2.33 H Estim Creat Clear Calc 27.7 Estimated GFR 20 POC Glucose Random Glucose 166 H Lactic Acid 0.8 Calcium 8.5 Magnesium 2.0 Total Bilirubin 0.5 AST 16 ALT 7 Alkaline Phosphatase 102 Troponin I High Sens 41.9 H Total Protein 7.2 Albumin 3.1 L Urine Color Urine Appearance Urine pH Ur Specific [place] Urine Protein Urine Glucose (UA) Urine Ketones Urine Blood Urine Nitrite Ur Leukocyte Esterase Urine RBC Urine WBC Ur Squamous Epith Cells Urine Bacteria Hyaline Casts Influenza Type A (PCR) NEGATIVE Influenza Type B (PCR) NEGATIVE RSV RNA Qual (PCR) NEGATIVE SARS-CoV-2 RNA (RT-PCR) NEGATIVE 04/12/23 04/13/23 04/13/23 23:08 05:40 07:13 WBC 9.4 RBC 3.91 L Hgb 11.5 L Hct 38.2 MCV 97.7 MCH 29.4 MCHC 30.1 L RDW 14.8 Plt Count 261 MPV 12.1 Immature Gran % (Auto) 0.4 Neut % (Auto) 65.0 Lymph % (Auto) 19.2 L [place] % (Auto) 11.2 H Eos % (Auto) 4.0 Baso % (Auto) 0.2 Lymph # (Auto) 1.8 [place] # (Auto) 1.1 Eos # (Auto) 0.4 Baso # (Auto) 0.0 Abs Immat Gran (auto) 0.04 H Absolute Neuts (auto) 6.1 Absolute Nucleated RBC 0.000 Nucleated RBC % (auto) 0.0 Sodium 142 Potassium 5.6 H Chloride 117 H Carbon Dioxide 19 L Anion Gap 12 BUN 46 H Creatinine 2.17 H Estim Creat Clear Calc 29.8 Estimated GFR 22 POC Glucose 145 H Random Glucose 158 H Lactic Acid Calcium 7.9 L D Magnesium 2.0 Total Bilirubin 0.7 AST 18 ALT 6 Alkaline Phosphatase 91 Troponin I High Sens Total Protein 6.5 Albumin 2.6 L Urine Color Yellow Urine Appearance Cloudy Urine pH 5.5 Ur Specific [place] 1.015 Urine Protein 100 (2+) H Urine Glucose (UA) Negative Urine Ketones Negative Urine Blood Trace H Urine Nitrite Negative Ur Leukocyte Esterase Large (3+) H Urine RBC 11-20 H Urine WBC >50 H Ur Squamous Epith Cells 0-2 Urine Bacteria 4+ Hyaline Casts 0-2 Influenza Type A (PCR) Influenza Type B (PCR) RSV RNA Qual (PCR) SARS-CoV-2 RNA (RT-PCR) 04/13/23 09:52 WBC RBC Hgb Hct MCV MCH MCHC RDW Plt Count MPV Immature Gran % (Auto) Neut % (Auto) Lymph % (Auto) [place] % (Auto) Eos % (Auto) Baso % (Auto) Lymph # (Auto) [place] # (Auto) Eos # (Auto) Baso # (Auto) Abs Immat Gran (auto) Absolute Neuts (auto) Absolute Nucleated RBC Nucleated RBC % (auto) Sodium Potassium Chloride Carbon Dioxide Anion Gap BUN Creatinine Estim Creat Clear Calc Estimated GFR POC Glucose 209 H Random Glucose Lactic Acid Calcium Magnesium Total Bilirubin AST ALT Alkaline Phosphatase Troponin I High Sens Total Protein Albumin Urine Color Urine Appearance Urine pH Ur Specific [place] Urine Protein Urine Glucose (UA) Urine Ketones Urine Blood Urine Nitrite Ur Leukocyte Esterase Urine RBC Urine WBC Ur Squamous Epith Cells Urine Bacteria Hyaline Casts Influenza Type A (PCR) Influenza Type B (PCR) RSV RNA Qual (PCR) SARS-CoV-2 RNA (RT-PCR) Airway Mallampati Class: IV TM Dist: >3cm Neck ROM: Full Heart: RRR Lungs: CTA Assessment and Plan Assessment Anesthesia Assessment: Anesthesia Plan Discussed Final Anesthetic Review Family History of Problems with Anesthesia: No History of Problems with Anesthesia: No NPO: No ASA Class: IV and Emergency Final Preanesthetic Review: Meds/Allgs Chart Reviewed, Consent Obtained/Reviewed and Anes Risks/Benef Reviewed Patient Risk: High Procedure Risk: Intermediate Anesthetic Plan Anesthetic Plan: GA Disposition: Standard PACU
[2023-04-13 10:22] LABS: Troponin-I High Sensitivity 31.4 ng/L (<3.5-17.0)
--- NOTE | 2023-04-13 10:35 | PM.CNGS ---
[facility] Past Medical History Medical History Complete amputation of left foot CKD (chronic kidney disease) stage 4, GFR 15-29 ml/min CKD (chronic kidney disease) Acute and subacute ischemic heart disease Acute hyperglycemia Amputation of left foot Kidney disease High cholesterol CAD (coronary artery disease) HTN (hypertension) Diabetes Family History Family History Mother Diabetes Father Diabetes Surgical History Surgical History History of cholecystectomy History of gastric stapling History of lumpectomy Social History Social History Household Members: None Housing: Apartment Do you presently have visiting nurse or other home services: Yes (Visiting nurse) Alcohol intake: never Patient Tobacco Use Status: Never used Tobacco Smoked in Last 30 Days: No Use of substances other than those prescribed or required for medical reasons: No Advance Directives: Yes Advance Directives on File: Yes Advance Directives Date on File: 01/28/21 Nutrition Risks: No Nutritional Risk service: No Meds Allergies Allergy/AdvReac Type Severity Reaction Status Date / Time Sulfa (Sulfonamide Allergy Mild LOOPY, Verified 02/08/23 09:11 Antibiotics) memory contrast dye AdvReac Mild itchy Uncoded 02/08/23 09:11 Active Medications: Current Medications Acetaminophen (Acetaminophen 325 Mg Tablet) 650 mg PO Q6H PRN PRN Reason: Pain, Mild (Pain Scale 1-3) Last Admin: 04/13/23 09:27 Dose: 650 mg Al Hydroxide/Mg Hydroxide (Magnesium Hydrox/Alum Hydrox 30 Ml Oral.Susp) 30 ml PO Q4H PRN PRN Reason: Heartburn/Nausea Aspirin (Aspirin Enteric Coated 81 Mg Tablet.Dr) 81 mg PO DAILY [facility] Last Admin: 04/13/23 08:41 Dose: 81 mg Atorvastatin Calcium (Atorvastatin Calcium 80 Mg Tablet) 80 mg PO DAILY [facility] Last Admin: 04/13/23 08:41 Dose: 80 mg Dextrose (Dextrose 50 % 25 Gm/50 Ml Syringe) 25 gm IVPUSH Q15M PRN; Protocol PRN Reason: per Hypoglycemia Standing Ord. Docusate Sodium (Docusate Sodium 100 Mg Capsule) 100 mg PO BID [facility] Last Admin: 04/13/23 08:41 Dose: 100 mg Gabapentin (Gabapentin 300 Mg Capsule) 300 mg PO TID [facility] Last Admin: 04/13/23 08:41 Dose: 300 mg Glucose (Glucose Gel 15 Gm Gel..Gram.) 15 gm PO Q15M PRN; Protocol PRN Reason: per Hypoglycemia Standing Ord. Heparin Sodium (Porcine) (Heparin Sodium,Porcine 5,000 Unit/Ml Vial) 5,000 unit SUBCUT Q8H [facility] Last Admin: 04/13/23 05:42 Dose: 5,000 unit Cefazolin Sodium/Dextrose (Ancef) 2 gm in 50 mls @ 100 mls/hr IV PREOP ONE Stop: 04/13/23 10:46 Insulin Human Lispro (Insulin Lispro 100 Unit/Ml 3 Ml Vial) 0 unit SUBCUT QIDACHS [facility]; Protocol Last Admin: 04/13/23 07:41 Dose: Not Given Isosorbide Mononitrate (Isosorbide Mononitrate 60 Mg Tab.Er.24h) 60 mg PO DAILY [facility]; Protocol Last Admin: 04/13/23 08:41 Dose: 60 mg Lorazepam (Lorazepam 2 Mg/Ml Vial) 0.5 mg IVPUSH ONCE ONE Stop: 04/13/23 10:31 Magnesium Hydroxide (Milk Of Magnesia 30 Ml Oral.Susp) 30 ml PO DAILY PRN PRN Reason: Constipation Melatonin (Melatonin 3 Mg Tablet) 6 mg PO BEDTIME PRN PRN Reason: Insomnia Methenamine Hippurate (Methenamine Hippurate 1 Gm Tablet) 1 gm PO DAILY@1200 [facility] Metoprolol Tartrate (Metoprolol Tartrate 25 Mg Tablet) 25 mg PO BID [facility]; Protocol Last Admin: 04/13/23 08:41 Dose: 25 mg Morphine Sulfate (Morphine Sulfate 4 Mg/Ml Cartridge) 2 mg IVPUSH Q4H PRN; Protocol PRN Reason: Pain, Severe (Pain Scale 7-10) Nitroglycerin (Nitroglycerin 0.4 Mg Tab.Subl) 0.4 mg SUBLINGUAL Q5M PRN PRN Reason: chest pain Omeprazole (Omeprazole 20 Mg Capsule.Dr) 20 mg PO DAILY@0630 [facility] Last Admin: 04/13/23 05:42 Dose: 20 mg Ondansetron HCl (Ondansetron Hcl 4 Mg/2 Ml Vial) 4 mg IVPUSH Q8H PRN PRN Reason: Nausea and Vomiting Last Admin: 04/13/23 08:47 Dose: 4 mg Senna (Sennosides 8.6 Mg Tablet) 17.2 mg PO BEDTIME PRN PRN Reason: Constipation Sodium Chloride (0.9 % Sodium Chloride Flush 3 Ml Syringe) 3 ml IVFLUSH QSHIFT [facility] Last Admin: 04/13/23 08:49 Dose: 3 ml Sodium Zirconium Cyclosilicate (Sodium Zirconium Cyclosilicate 10 Gm Powd.Pack) 10 gm PO MoWeFr@0900 [facility] Home Medications Medication Instructions Recorded Confirmed Last Taken Type atorvastatin 80 mg tablet 80 mg PO DAILY 05/20/21 04/12/23 04/11/22 History gabapentin 300 mg capsule 300 mg PO TID 05/20/21 04/12/23 04/11/22 History omeprazole 20 mg capsule,delayed 20 mg PO DAILY 05/20/21 04/12/23 04/11/22 History release Probiotic 1 cap PO DAILY 04/12/23 04/12/23 04/11/22 History dulaglutide 0.75 mg/0.5 mL 0.75 mg subcut ABRAMS 04/12/23 04/12/23 04/11/22 History subcutaneous pen injector (Trulicity) insulin glargine U-300 conc 300 66 unit subcut BEDTIME 04/12/23 04/12/23 04/11/22 History unit/mL (3 mL) subcutaneous pen (Toujeo Max U-300 SoloStar) insulin lispro 100 unit/mL 0 sliding scale dose subcut TIDAC 04/12/23 04/12/23 04/11/22 History subcutaneous pen (Humalog KwikPen (U-100) Insulin) methenamine hippurate 1 gram tablet 1 g PO DAILY 04/12/23 04/12/23 04/11/22 History sodium zirconium cyclosilicate 10 10 g PO MOWEFR 04/12/23 04/12/23 04/12/22 History gram oral powder packet (Lokelma) Physical Exam Vital Signs: Vital Signs: Last Vital Signs Temp 97.8 F 04/13/23 09:53 Pulse 88 04/13/23 09:53 Resp 16 04/13/23 09:53 BP 189/56 H 04/13/23 09:53 Pulse Ox 94 04/13/23 09:53 O2 Del Method Room Air 04/13/23 09:53 O2 Flow Rate 96 04/13/23 01:32 BMI result Body Mass Index 41.2 Results Labs 04/13/23 05:40 04/13/23 05:40 Labs: Abnormal lab results 04/12/23 04/12/23 04/12/23 Range/Units 13:18 16:18 23:08 WBC 14.9 H (4.8-10.8) X10*3/uL RBC (4.20-5.50) X10*6/uL Hgb (12.0-16.0) g/dl MCHC (31.0-35.0) g/dl Neut % (Auto) 85.7 H (45-73) % Lymph % (Auto) 5.3 L (20-40) % [place] % (Auto) (2-11) % Lymph # (Auto) 0.8 L (1.2-4.9) X10*3/uL Abs Immat Gran (auto) 0.06 H (0.00-0.03) X10*3/uL Absolute Neuts (auto) 12.8 H (2.0-8.3) x10*3/uL Potassium 6.2 H* (3.3-5.1) mmol/L Chloride 113 H (96-108) mmol/L Carbon Dioxide 21 L (22-29) mmol/L BUN 50 H (9-16) mg/dL Creatinine 2.33 H (0.5-1.4) mg/dL POC Glucose (60-115) mg/dL Random Glucose 166 H (60-115) mg/dL Calcium (8.4-10.2) mg/dL Troponin I High Sens 41.9 H (<3.5-17.0) ng/L Albumin 3.1 L (3.5-5.0) g/dL Urine Protein 100 (2+) H (Neg-Trace) mg/dL Urine Blood Trace H (Negative) Ur Leukocyte Esterase Large (3+) H (Negative) Urine RBC 11-20 H (0-2) /HPF Urine WBC >50 H (0-5) /HPF 04/13/23 04/13/23 04/13/23 Range/Units 05:40 07:13 09:35 WBC (4.8-10.8) X10*3/uL RBC 3.91 L (4.20-5.50) X10*6/uL Hgb 11.5 L (12.0-16.0) g/dl MCHC 30.1 L (31.0-35.0) g/dl Neut % (Auto) (45-73) % Lymph % (Auto) 19.2 L (20-40) % [place] % (Auto) 11.2 H (2-11) % Lymph # (Auto) (1.2-4.9) X10*3/uL Abs Immat Gran (auto) 0.04 H (0.00-0.03) X10*3/uL Absolute Neuts (auto) (2.0-8.3) x10*3/uL Potassium 5.6 H (3.3-5.1) mmol/L Chloride 117 H (96-108) mmol/L Carbon Dioxide 19 L (22-29) mmol/L BUN 46 H (9-16) mg/dL Creatinine 2.17 H (0.5-1.4) mg/dL POC Glucose 145 H (60-115) mg/dL Random Glucose 158 H (60-115) mg/dL Calcium 7.9 L D (8.4-10.2) mg/dL Troponin I High Sens 31.4 H (<3.5-17.0) ng/L Albumin 2.6 L (3.5-5.0) g/dL Urine Protein (Neg-Trace) mg/dL Urine Blood (Negative) Ur Leukocyte Esterase (Negative) Urine RBC (0-2) /HPF Urine WBC (0-5) /HPF 04/13/23 Range/Units 09:52 WBC (4.8-10.8) X10*3/uL RBC (4.20-5.50) X10*6/uL Hgb (12.0-16.0) g/dl MCHC (31.0-35.0) g/dl Neut % (Auto) (45-73) % Lymph % (Auto) (20-40) % [place] % (Auto) (2-11) % Lymph # (Auto) (1.2-4.9) X10*3/uL Abs Immat Gran (auto) (0.00-0.03) X10*3/uL Absolute Neuts (auto) (2.0-8.3) x10*3/uL Potassium (3.3-5.1) mmol/L Chloride (96-108) mmol/L Carbon Dioxide (22-29) mmol/L BUN (9-16) mg/dL Creatinine (0.5-1.4) mg/dL POC Glucose 209 H (60-115) mg/dL Random Glucose (60-115) mg/dL Calcium (8.4-10.2) mg/dL Troponin I High Sens (<3.5-17.0) ng/L Albumin (3.5-5.0) g/dL Urine Protein (Neg-Trace) mg/dL Urine Blood (Negative) Ur Leukocyte Esterase (Negative) Urine RBC (0-2) /HPF Urine WBC (0-5) /HPF Short CBC 04/12/23 04/13/23 Range/Units 13:18 05:40 WBC 14.9 H 9.4 (4.8-10.8) X10*3/uL Hgb 12.8 11.5 L (12.0-16.0) g/dl Hct 41.3 38.2 (37.0-47.0) % Plt Count 281 261 (160-400) X10*3/uL BMP 04/12/23 04/13/23 16:18 05:40 Sodium 142 142 Potassium 6.2 H* 5.6 H Chloride 113 H 117 H Carbon Dioxide 21 L 19 L BUN 50 H 46 H Creatinine 2.33 H 2.17 H Calcium 8.5 7.9 L D Liver Function 04/12/23 04/13/23 Range/Units 16:18 05:40 Total Bilirubin 0.5 0.7 (0.0-1.0) mg/dL AST 16 18 (5-31) U/L ALT 7 6 (0-31) U/L Alkaline Phosphatase 102 91 (39-117) U/L Albumin 3.1 L 2.6 L (3.5-5.0) g/dL Urine 04/12/23 Range/Units 23:08 Urine Color Yellow Urine Appearance Cloudy Urine pH 5.5 (5.0-9.0) Ur Specific [place] 1.015 (1.005-1.025) Urine Protein 100 (2+) H (Neg-Trace) mg/dL Urine Glucose (UA) Negative (Negative) mg/dL All other labs normal. Procedures Date of Service Date of Service: 04/13/23
--- NOTE | 2023-04-13 10:39 | P.CONGS_ITS ---
History of Present Illness Consult details Consult date: 04/13/23 <YOBANI Armstrong Last Filed: 04/13/23 11:56> Requesting physician: Vinita Rivera <YOBANI Armstrong Last Filed: 04/13/23 11:56> Narrative: Patient is a 72 year old female with extensive medical history including DM, CAD s/p RCA stent, HTN, and blindness who presented to the ED with abdominal pain, nausea, and vomiting. Patient states that her pain began on Wednesday night. It was at her mid abdomen and crampy in nature. She then developed nausea with multiple episodes of vomiting on Wednesday. She reports obstipation with last flatus and BM 3 days ago. She initially thought she was just constipated but her symptoms worsened and therefore prompted her to seek care in the ED. She has a hx of lap rand and sleeve gastrectomy. In the ED, work up included CBC, BMP which was significant for leukocytosis which has resolved and hyperkalemia. She also had an elevated troponin with repeat pending. Lactic acid normal. CT scan was obtained which showed multiple ventral hernias with one ventral hernia containing small bowel with a relative transition point from mildly distended to decompressed distal ileum. She reports continued abdominal pain and nausea. < YOBANI Armstrong Last Filed: 04/13/23 11:56> Review of Systems 2 Constitutional: Constitutional: Denies chills and Denies fever(s) < YOBANI Armstrong Last Filed: 04/13/23 11:56> ENT: Denies dizziness <YOBANI Armstrong Filed: 04/13/23 11:56> Cardiovascular: Cardiovascular: Denies chest pain and Denies dyspnea < YOBANI Armstrong Last Filed: 04/13/23 11:56> Respiratory: Respiratory: Denies cough and Denies dyspnea <YOBANI Armstrong Last Filed: 04/13/23 11:56> Gastrointestinal: Gastrointestinal: Reports as per HPI <YOBANI Armstrong Filed: 04/13/23 11:56> Genitourinary: Genitourinary: Denies dysuria <Natasha Brown PA-C Last Filed: 04/13/23 11:56> Integumentary/Breasts: Skin/Breast: Denies rash and Denies jaundice < Natasha Brown PA-C - Last Filed: 04/13/23 11:56> Neurologic: Denies dizziness <YOBANI Armstrong Last Filed: 04/13/23 11:56> [facility] Past Medical History Medical History: Medical History (Updated 04/13/23 @ 11:58 by Melly Frias RN) Hx of myocardial infarction Broken ankle Complete amputation of left foot CKD (chronic kidney disease) stage 4, GFR 15-29 ml/min CKD (chronic kidney disease) Acute and subacute ischemic heart disease Acute hyperglycemia Amputation of left foot Kidney disease High cholesterol CAD (coronary artery disease) HTN (hypertension) Diabetes <YOBANI Armstrong Last Filed: 04/13/23 11:56> Family History Family History: Family History Mother Diabetes Father Diabetes <YOBANI Armstrong Last Filed: 04/13/23 11:56> Surgical History Surgical History: Surgical History History of cholecystectomy History of gastric stapling History of lumpectomy <YOBANI Armstrong Last Filed: 04/13/23 11:56> Social History Social History: Social History Household Members: None Housing: Apartment Do you presently have visiting nurse or other home services: Yes (Visiting nurse) Alcohol intake: never Patient Tobacco Use Status: Never used Tobacco Advance Directives Date on File: 01/28/21 service: No <YOBANI Armstrong Last Filed: 04/13/23 11:56> Meds Allergies/Adverse reactions: Allergies Allergy/AdvReac Type Severity Reaction Status Date / Time Sulfa (Sulfonamide Allergy Mild LOOPY, Verified 04/13/23 11:59 Antibiotics) memory contrast dye AdvReac Mild itchy Uncoded 02/08/23 09:11 <Natasha Brown PA-C - Last Filed: 04/13/23 11:56> Active Medications: Current Medications Acetaminophen (Acetaminophen 325 Mg Tablet) 650 mg PO Q6H PRN PRN Reason: Pain, Mild (Pain Scale 1-3) Last Admin: 04/13/23 09:27 Dose: 650 mg Al Hydroxide/Mg Hydroxide (Magnesium Hydrox/Alum Hydrox 30 Ml Oral.Susp) 30 ml PO Q4H PRN PRN Reason: Heartburn/Nausea Aspirin (Aspirin Enteric Coated 81 Mg Tablet.Dr) 81 mg PO DAILY [facility] Last Admin: 04/13/23 08:41 Dose: 81 mg Atorvastatin Calcium (Atorvastatin Calcium 80 Mg Tablet) 80 mg PO DAILY [facility] Last Admin: 04/13/23 08:41 Dose: 80 mg Dextrose (Dextrose 50 % 25 Gm/50 Ml Syringe) 25 gm IVPUSH Q15M PRN; Protocol PRN Reason: per Hypoglycemia Standing Ord. Docusate Sodium (Docusate Sodium 100 Mg Capsule) 100 mg PO BID [facility] Last Admin: 04/13/23 08:41 Dose: 100 mg Gabapentin (Gabapentin 300 Mg Capsule) 300 mg PO TID [facility] Last Admin: 04/13/23 08:41 Dose: 300 mg Glucose (Glucose Gel 15 Gm Gel..Gram.) 15 gm PO Q15M PRN; Protocol PRN Reason: per Hypoglycemia Standing Ord. Heparin Sodium (Porcine) (Heparin Sodium,Porcine 5,000 Unit/Ml Vial) 5,000 unit SUBCUT Q8H [facility] Last Admin: 04/13/23 05:42 Dose: 5,000 unit Cefazolin Sodium/Dextrose (Ancef) 2 gm in 50 mls @ 100 mls/hr IV PREOP ONE Stop: 04/13/23 10:46 Insulin Human Lispro (Insulin Lispro 100 Unit/Ml 3 Ml Vial) 0 unit SUBCUT QIDACHS [facility]; Protocol Last Admin: 04/13/23 07:41 Dose: Not Given Isosorbide Mononitrate (Isosorbide Mononitrate 60 Mg Tab.Er.24h) 60 mg PO DAILY [facility]; Protocol Last Admin: 04/13/23 08:41 Dose: 60 mg Lorazepam (Lorazepam 2 Mg/Ml Vial) 0.5 mg IVPUSH ONCE ONE Stop: 04/13/23 10:31 Magnesium Hydroxide (Milk Of Magnesia 30 Ml Oral.Susp) 30 ml PO DAILY PRN PRN Reason: Constipation Melatonin (Melatonin 3 Mg Tablet) 6 mg PO BEDTIME PRN PRN Reason: Insomnia Methenamine Hippurate (Methenamine Hippurate 1 Gm Tablet) 1 gm PO DAILY@1200 [facility] Metoprolol Tartrate (Metoprolol Tartrate 25 Mg Tablet) 25 mg PO BID [facility]; Protocol Last Admin: 04/13/23 08:41 Dose: 25 mg Morphine Sulfate (Morphine Sulfate 4 Mg/Ml Cartridge) 2 mg IVPUSH Q4H PRN; Protocol PRN Reason: Pain, Severe (Pain Scale 7-10) Nitroglycerin (Nitroglycerin 0.4 Mg Tab.Subl) 0.4 mg SUBLINGUAL Q5M PRN PRN Reason: chest pain Omeprazole (Omeprazole 20 Mg Capsule.Dr) 20 mg PO DAILY@0630 [facility] Last Admin: 04/13/23 05:42 Dose: 20 mg Ondansetron HCl (Ondansetron Hcl 4 Mg/2 Ml Vial) 4 mg IVPUSH Q8H PRN PRN Reason: Nausea and Vomiting Last Admin: 04/13/23 08:47 Dose: 4 mg Senna (Sennosides 8.6 Mg Tablet) 17.2 mg PO BEDTIME PRN PRN Reason: Constipation Sodium Chloride (0.9 % Sodium Chloride Flush 3 Ml Syringe) [facility] Last Admin: 04/13/23 08:49 Dose: 3 ml Sodium Zirconium Cyclosilicate (Sodium Zirconium Cyclosilicate 10 Gm Powd.Pack) 10 gm PO MoWeFr@0900 [facility] <Natasha Brown PA-C - Last Filed: 04/13/23 11:56> Home medications: Home Medications Medication Instructions Recorded Confirmed Last Taken Type atorvastatin 80 mg tablet 80 mg PO DAILY 05/20/21 04/12/23 04/11/22 History gabapentin 300 mg capsule 300 mg PO TID 05/20/21 04/12/23 04/11/22 History omeprazole 20 mg capsule,delayed 20 mg PO DAILY 05/20/21 04/12/23 04/11/22 History release Probiotic 1 cap PO DAILY 04/12/23 04/12/23 04/11/22 History dulaglutide 0.75 mg/0.5 mL 0.75 mg subcut ABRAMS 0104/12/23 04/11/22 History subcutaneous pen injector (Trulicity) insulin glargine U-300 conc 300 66 unit subcut BEDTIME 04/12/23 04/12/23 04/11/22 History unit/mL (3 mL) subcutaneous pen (Toujeo Max U-300 SoloStar) insulin lispro 100 unit/mL 0 sliding scale dose subcut TIDAC 04/12/23 04/12/23 04/11/22 History subcutaneous pen (Humalog KwikPen (U-100) Insulin) methenamine hippurate 1 gram tablet 1 g PO DAILY 04/12/23 04/12/23 04/11/22 History sodium zirconium cyclosilicate 10 10 g PO MOWEFR 04/12/23 04/12/23 04/12/22 History gram oral powder packet (Lokelma) <YOBANI Armstrong Last Filed: 04/13/23 11:56> Physical Exam 2 Vital Signs: Vital Signs: Last Vital Signs Temp 97.8 F 04/13/23 09:53 Pulse 88 04/13/23 09:53 Resp 16 04/13/23 09:53 BP 189/56 H 04/13/23 09:53 Pulse Ox 94 04/13/23 09:53 O2 Del Method Room Air 04/13/23 09:53 O2 Flow Rate 96 04/13/23 01:32 BMI result Body Mass Index 41.2 <YOABNI Armstrong Last Filed: 04/13/23 11:56> Const: Other: Uncomfortable appearing, anxious <YOBANI Armstrong Last Filed: 04/13/23 11:56> General: alert <YOBANI Armstrong Last Filed: 04/13/23 11:56> Orientation/consciousness: patient oriented x3 <YOBANI Armstrong Last Filed: 04/13/23 11:56> Resp: Effort & Inspection: normal respiratory effort and no respiratory distress <YOBANI Armstrong Last Filed: 04/13/23 11:56> Cardio: Rate: regular rate <YOBANI Armstrong Last Filed: 04/13/23 11:56> GI: Other: corpulent abdomen, mid abdomen very tender at ventral hernia sites <YOBANI Armstrong Last Filed: 04/13/23 11:56> Inspection: Yes distended and Yes scar <YOBANI Armstrong Last Filed: 04/13/23 11:56> Palpation (GI): Soft to palpation, no guarding and not rigid <YOBANI Armstrong Last Filed: 04/13/23 11:56> Percussion: Yes normal to percussion <YOBANI Armstrong Last Filed: 04/13/23 11:56> Skin: General skin exam: no rashes or lesions noted and no jaundice < YOBANI Armstrong Last Filed: 04/13/23 11:56> Neuro: General: patient oriented x3 <YOBANI Armstrong Last Filed: 04/13/23 11:56> Results Labs Result diagrams: 04/13/23 05:40 04/13/23 05:40 <YOBANI Armstrong Last Filed: 04/13/23 11:56> Labs: Abnormal lab results 04/12/23 04/12/23 04/12/23 Range/Units 13:18 16:18 23:08 WBC 14.9 H (4.8-10.8) X10*3/uL RBC (4.20-5.50) X10*6/uL Hgb (12.0-16.0) g/dl MCHC (31.0-35.0) g/dl Neut % (Auto) 85.7 H (45-73) % Lymph % (Auto) 5.3 L (20-40) % [place] % (Auto) (2-11) % Lymph # (Auto) 0.8 L (1.2-4.9) X10*3/uL Abs Immat Gran (auto) 0.06 H (0.00-0.03) X10*3/uL Absolute Neuts (auto) 12.8 H (2.0-8.3) x10*3/uL Potassium 6.2 H* (3.3-5.1) mmol/L Chloride 113 H (96-108) mmol/L Carbon Dioxide 21 L (22-29) mmol/L BUN 50 H (9-16) mg/dL Creatinine 2.33 H (0.5-1.4) mg/dL POC Glucose (60-115) mg/dL Random Glucose 166 H (60-115) mg/dL Calcium (8.4-10.2) mg/dL Troponin I High Sens 41.9 H (<3.5-17.0) ng/L Albumin 3.1 L (3.5-5.0) g/dL Urine Protein 100 (2+) H (Neg-Trace) mg/dL Urine Blood Trace H (Negative) Ur Leukocyte Esterase Large (3+) H (Negative) Urine RBC 11-20 H (0-2) /HPF Urine WBC >50 H (0-5) /HPF 04/13/23 04/13/23 04/13/23 Range/Units 05:40 07:13 09:35 WBC (4.8-10.8) X10*3/uL RBC 3.91 L (4.20-5.50) X10*6/uL Hgb 11.5 L (12.0-16.0) g/dl MCHC 30.1 L (31.0-35.0) g/dl Neut % (Auto) (45-73) % Lymph % (Auto) 19.2 L (20-40) % [place] % (Auto) 11.2 H (2-11) % Lymph # (Auto) (1.2-4.9) X10*3/uL Abs Immat Gran (auto) 0.04 H (0.00-0.03) X10*3/uL Absolute Neuts (auto) (2.0-8.3) x10*3/uL Potassium 5.6 H (3.3-5.1) mmol/L Chloride 117 H (96-108) mmol/L Carbon Dioxide 19 L (22-29) mmol/L BUN 46 H (9-16) mg/dL Creatinine 2.17 H (0.5-1.4) mg/dL POC Glucose 145 H (60-115) mg/dL Random Glucose 158 H (60-115) mg/dL Calcium 7.9 L D (8.4-10.2) mg/dL Troponin I High Sens 31.4 H (<3.5-17.0) ng/L Albumin 2.6 L (3.5-5.0) g/dL Urine Protein (Neg-Trace) mg/dL Urine Blood (Negative) Ur Leukocyte Esterase (Negative) Urine RBC (0-2) /HPF Urine WBC (0-5) /HPF 04/13/23 Range/Units 09:52 WBC (4.8-10.8) X10*3/uL RBC (4.20-5.50) X10*6/uL Hgb (12.0-16.0) g/dl MCHC (31.0-35.0) g/dl Neut % (Auto) (45-73) % Lymph % (Auto) (20-40) % [place] % (Auto) (2-11) % Lymph # (Auto) (1.2-4.9) X10*3/uL Abs Immat Gran (auto) (0.00-0.03) X10*3/uL Absolute Neuts (auto) (2.0-8.3) x10*3/uL Potassium (3.3-5.1) mmol/L Chloride (96-108) mmol/L Carbon Dioxide (22-29) mmol/L BUN (9-16) mg/dL Creatinine (0.5-1.4) mg/dL POC Glucose 209 H (60-115) mg/dL Random Glucose (60-115) mg/dL Calcium (8.4-10.2) mg/dL Troponin I High Sens (<3.5-17.0) ng/L Albumin (3.5-5.0) g/dL Urine Protein (Neg-Trace) mg/dL Urine Blood (Negative) Ur Leukocyte Esterase (Negative) Urine RBC (0-2) /HPF Urine WBC (0-5) /HPF Short CBC 04/12/23 04/13/23 Range/Units 13:18 05:40 WBC 14.9 H 9.4 (4.8-10.8) X10*3/uL Hgb 12.8 11.5 L (12.0-16.0) g/dl Hct 41.3 38.2 (37.0-47.0) % Plt Count 281 261 (160-400) X10*3/uL BMP 04/12/23 04/13/23 16:18 05:40 Sodium 142 142 Potassium 6.2 H* 5.6 H Chloride 113 H 117 H Carbon Dioxide 21 L 19 L BUN 50 H 46 H Creatinine 2.33 H 2.17 H Calcium 8.5 7.9 L D Liver Function 04/12/23 04/13/23 Range/Units 16:18 05:40 Total Bilirubin 0.5 0.7 (0.0-1.0) mg/dL AST 16 18 (5-31) U/L ALT 7 6 (0-31) U/L Alkaline Phosphatase 102 91 (39-117) U/L Albumin 3.1 L 2.6 L (3.5-5.0) g/dL Urine 04/12/23 Range/Units 23:08 Urine Color Yellow Urine Appearance Cloudy Urine pH 5.5 (5.0-9.0) Ur Specific [place] 1.015 (1.005-1.025) Urine Protein 100 (2+) H (Neg-Trace) mg/dL Urine Glucose (UA) Negative (Negative) mg/dL All other labs normal. <YOBANI Armstrong Last Filed: 04/13/23 11:56> Assessment and Plan (1) Incarcerated ventral hernia: Status: Acute <YOBANI Armstrong Last Filed: 04/13/23 11:56> (2) SBO (small bowel obstruction): Status: Acute <YOBANI Armstrong Last Filed: 04/13/23 11:56> 72 year old female who presented with abd pain, nausea and vomiting with CT scan showing incarcerated ventral hernia with secondary SBO. Given her degree of tenderness and obstruction there is concern for strangulation of the hernia, it was recommended to proceed with repair of the incarcerated ventral hernia with possible mesh. Risks, benefits, alternatives of the hernia repair were reviewed with the patient including but not limited to bleeding, infection, numbness, pain, poor healing, recurrence, injury to the bowel and the patient wishes to proceed.? Arrangements will be made for this.?All questions were answered. NGT will be ordered for decompression. She is admitted to the medical service for management of her medical comorbidities. <Natasha Brown PA-C - Last Filed: 04/13/23 11:56> Procedures Date of Service Date of Service: 04/13/23 <Natasha Brown PA-C - Last Filed: 04/13/23 11:56> 04/13/23 <Delano Serrato MD - Last Filed: 04/13/23 13:35>
[2023-04-13] MEDS: LORazepam 2 MG/ML VIAL 0.5 MG IVPUSH (11:01)
--- NOTE | 2023-04-13 11:10 | PC.NURSE ---
report given to short stay
--- NOTE | 2023-04-13 11:11 | PC.NURSE ---
NG tube pt was told she could have lido for the NG tube insertion, this nurse spoke with short stay about this, also jennier texted the provider who placed the NG tube order as well as spoke with the hospitalist Dr. Cunningham. This nurse is still waiting for the lido order to place this NG tube.
--- NOTE | 2023-04-13 11:21 | MHC.CM.PN ---
Addendum entered by Dipika Lane 04/13/23 11:29: Pt can arrange transportation home via chair van, she uses [employer], and needs to call 24 hours in advance. Original Note: Pt lives in [facility], HCP on file: Prabha Akers, she has [facility] services for a wound on the bottom of her foot, for med equipment, she has a shower bench, walker, wheel chair. She has been to [facility] in the past, good experience at [facility], not good good experience at [facility] or [facility]. Her PCP is Herminia Napier. CM to follow and assist [facility] DC planning.
[2023-04-13] MEDS: Lidocaine HCl 4 % Laryng-O-Jet 4 ML 1 APPL TOPICAL (11:25)
--- NOTE | 2023-04-13 11:40 | PC.NURSE ---
patient a&ox3, pt had anxiety over NG tube insertion and wanted lidocaine, after a delay patient was medicated with ativan for her anxiety as well as an order was obtained for lido to insert NG tube, NG has been placed, radiology is doing XR to confirm placement, pt to go to short stay shortly, pt nsr on shelter monitor, call morelos within reach, will continue to monitor.
[2023-04-13] MEDS: 0.9 % Sodium Chloride 1,000 ML 50 ML IVCONT ×2 (12:11→21:22)
[2023-04-13 12:13] LABS: Glucose, Whole Blood 219 mg/dL (60-115)
--- NOTE | 2023-04-13 13:35 | W.PM.OPN ---
Operative Note Operative Note Date of Service: 04/13/23 Narrative: Preoperative diagnosis: [] Small-bowel obstruction, incarcerated incisional/ventral hernia Postop diagnosis: [] Same al Procedure [] exploratory laparotomy, reduction of incarcerated hernia, partial amputation of omentum, enterolysis, repair of incisional hernia with Bard mesh Surgeon: [] Rojelio Trim Master Operator: [] Kevin Type of Anesthesia: [] General Indication for surgery: [] Massively corpulent abdomen. Intraoperative findings demonstrated incarcerated incisional hernia from patient's prior open gastric surgery with incarcerated contents of omentum and a knuckle of small bowel twisted on itself. Bowel was edematous but viable with proximal bowel markedly dilated proximal bowel and distal bowel decompressed. Findings: [] Patient brought to the operating room, placed on table supine position, after adequate level of general anesthesia was induced, the patient's abdomen was prepped and draped in usual sterile fashion. Using incision from the prior scar from the previous abdominal surgery over the hernia question in the lower midline, this carried down through skin, subcutaneous tissue, where a very large hernia sac was identified and circumferentially dissected down to fascia. Hernia sac was opened and circumferentially amputated. This accomplished using Bovie. Contents were as described above. Omental adhesions were taken down along with small-bowel which was in the hernia sac and was adhered to the sac and omentum and twisted upon itself. Bowel was pink and viable at completion of the procedure and it was the transition zone and reduced into the abdominal cavity.. Redundant omentum from the hernia sac was amputated using double firing of ligature device. Fascia margins were completely cleared. A Bard mesh was placed in this defect and superficial layer of the mesh was circumferentially sutured to the surrounding fascia using interrupted 0 Ethibond suture.At Completion of the procedure, mesh was in good position with no tension or gaps. Wound was irrigated, and secured for hemostasis. Wound was closed in the following manner; subcutaneous tissue was reapproximated using interrupted 3-0 Vicryl sutures. Skin was closed using interrupted inverted 3-0 Vicryl sutures followed by Steri-Strips and sterile dressings. Wound was infiltrated 0.5% Marcaine at completion. Sponge, needle, instrument counts reported correct. Patient tolerated the procedure well and emerged anesthesia in stable condition. EBL minimal
[2023-04-13] MEDS: fentaNYL citrate/PF 100 MCG/2 ML VIAL 25 MCG IVPUSH ×4 (14:05→14:20)
[2023-04-13] MEDS: Acetaminophen 1,000 MG/100 ML PIGGYBACK 400 MG IV (14:10)
[2023-04-13] MEDS: Morphine Sulfate 4 MG/ML CARTRIDGE IVPUSH ×2 (17:46→21:09)
--- NOTE | 2023-04-13 17:52 | P.PNIM_ITS ---
Subjective Subjective Date of Service: 04/13/23 Interval History: incarcerated incisional/ventral hernia,possible tyalor on ckd Review of Systems nausea /vomiting present feels anxious has some abd soarness Physical Exam 2 Vital Signs: Vital Signs: Last Vital Signs Temp 97.6 F 04/13/23 17:00 Pulse 72 04/13/23 17:00 Resp 18 04/13/23 17:46 BP 154/63 H 04/13/23 17:00 Pulse Ox 95 04/13/23 17:00 O2 Del Method Room Air 04/13/23 17:00 O2 Flow Rate 2 04/13/23 16:00 BMI result Body Mass Index 41.2 Appearance: Alert.? Oriented X3.? cvs: rrr, [id number] , no murmur res: clear to auscultation ,no rhonchii or wheezing abd: no rebound or guarding , mid abdomen very tender at ventral hernia sites, bs present. ext pulses present , no cyanosis . neuro: axo3 , nonfocal. Objective Data Active Medications Al Hydroxide/Mg Hydroxide (Magnesium Hydrox/Alum Hydrox 30 Ml Oral.Susp) 30 ml PO Q4H PRN PRN Reason: Heartburn/Nausea Aspirin (Aspirin Enteric Coated 81 Mg Tablet.) 81 mg PO DAILY COUNT INCLUDES THE [facility] Last Admin: 04/13/23 08:41 Dose: 81 mg Documented By: SUSY Atorvastatin Calcium (Atorvastatin Calcium 80 Mg Tablet) 80 mg PO DAILY COUNT INCLUDES THE [facility] Last Admin: 04/13/23 08:41 Dose: 80 mg Documented By: SUSY Dextrose (Dextrose 50 % 25 Gm/50 Ml Syringe) 25 gm IVPUSH Q15M PRN; Protocol PRN Reason: per Hypoglycemia Standing Ord. Gabapentin (Gabapentin 300 Mg Capsule) 300 mg PO TID COUNT INCLUDES THE [facility] Last Admin: 04/13/23 08:41 Dose: 300 mg Documented By: SUSY Glucose (Glucose Gel 15 Gm Gel..Gram.) 15 gm PO Q15M PRN; Protocol PRN Reason: per Hypoglycemia Standing Ord. Heparin Sodium (Porcine) (Heparin Sodium,Porcine 5,000 Unit/Ml Vial) 5,000 unit SUBCUT Q8H COUNT INCLUDES THE [facility] Last Admin: 04/13/23 05:42 Dose: 5,000 unit Documented By: AMAURY Sodium Chloride (Ns) 1,000 mls @ 50 mls/hr IVCONT .Q20H COUNT INCLUDES THE [facility] Last Admin: 04/13/23 12:11 Dose: 50 mls/hr Documented By: ROSE Acetaminophen (Ofirmev) 1,000 mg in 100 mls @ 400 mls/hr IV Q6H COUNT INCLUDES THE [facility] Insulin Human Lispro (Insulin Lispro 100 Unit/Ml 3 Ml Vial) 0 unit SUBCUT QIDACHS COUNT INCLUDES THE [facility]; Protocol Last Admin: 04/13/23 07:41 Dose: Not Given Documented By: SUSY Non-Admin Reason: No Insulin Coverage Isosorbide Mononitrate (Isosorbide Mononitrate 60 Mg Tab.Er.24h) 60 mg PO DAILY COUNT INCLUDES THE [facility]; Protocol Last Admin: 04/13/23 08:41 Dose: 60 mg Documented By: SUSY Magnesium Hydroxide (Milk Of Magnesia 30 Ml Oral.Susp) 30 ml PO DAILY PRN PRN Reason: Constipation Melatonin (Melatonin 3 Mg Tablet) 6 mg PO BEDTIME PRN PRN Reason: Insomnia Methenamine Hippurate (Methenamine Hippurate 1 Gm Tablet) 1 gm PO DAILY@1200 COUNT INCLUDES THE [facility] Metoprolol Tartrate (Metoprolol Tartrate 25 Mg Tablet) 25 mg PO BID COUNT INCLUDES THE [facility]; Protocol Last Admin: 04/13/23 08:41 Dose: 25 mg Documented By: SUSY Morphine Sulfate (Morphine Sulfate 4 Mg/Ml Cartridge) 4 mg IVPUSH Q3H PRN; Protocol PRN Reason: Pain, Severe (Pain Scale 7-10) Last Admin: 04/13/23 17:46 Dose: 4 mg Documented By: DOMINGO Nitroglycerin (Nitroglycerin 0.4 Mg Tab.Subl) 0.4 mg SUBLINGUAL Q5M PRN PRN Reason: chest pain Omeprazole (Omeprazole 20 Mg Capsule.Dr) 20 mg PO DAILY@0630 COUNT INCLUDES THE [facility] Last Admin: 04/13/23 05:42 Dose: 20 mg Documented By: AMAURY Ondansetron HCl (Ondansetron Hcl 4 Mg/2 Ml Vial) 4 mg IVPUSH Q8H PRN PRN Reason: Nausea and Vomiting Last Admin: 04/13/23 08:47 Dose: 4 mg Documented By: SUSY Sodium Chloride (0.9 % Sodium Chloride Flush 3 Ml Syringe) 3 ml IVFLUSH QSHIFT COUNT INCLUDES THE [facility] Last Admin: 04/13/23 08:49 Dose: 3 ml Documented By: SUSY Sodium Zirconium Cyclosilicate (Sodium Zirconium Cyclosilicate 10 Gm Powd.Pack) 10 gm PO MoWeFr@0900 COUNT INCLUDES THE [facility] Labs 04/13/23 05:40 04/13/23 05:40 Labs: Laboratory Results - last 24 hr 04/12/23 04/12/23 04/13/23 20:55 23:08 05:40 MCV 97.7 MCH 29.4 MCHC 30.1 L RDW 14.8 Plt Count 261 MPV 12.1 Immature Gran % (Auto) 0.4 Neut % (Auto) 65.0 Lymph % (Auto) 19.2 L [place] % (Auto) 11.2 H Eos % (Auto) 4.0 Baso % (Auto) 0.2 Lymph # (Auto) 1.8 [place] # (Auto) 1.1 Eos # (Auto) 0.4 Baso # (Auto) 0.0 Abs Immat Gran (auto) 0.04 H Absolute Neuts (auto) 6.1 Absolute Nucleated RBC 0.000 Nucleated RBC % (auto) 0.0 Anion Gap 12 Estim Creat Clear Calc 29.8 Estimated GFR 22 POC Glucose Random Glucose 158 H Lactic Acid 0.8 Calcium 7.9 L D Magnesium 2.0 Total Bilirubin 0.7 AST 18 ALT 6 Alkaline Phosphatase 91 Total Protein 6.5 Albumin 2.6 L Urine Color Yellow Urine Appearance Cloudy Urine pH 5.5 Ur Specific [place] 1.015 Urine Protein 100 (2+) H Urine Glucose (UA) Negative Urine Ketones Negative Urine Blood Trace H Urine Nitrite Negative Ur Leukocyte Esterase Large (3+) H Urine RBC 11-20 H Urine WBC >50 H Ur Squamous Epith Cells 0-2 Urine Bacteria 4+ Hyaline Casts 0-2 04/13/23 04/13/23 04/13/23 07:13 09:52 12:09 MCV MCH MCHC RDW Plt Count MPV Immature Gran % (Auto) Neut % (Auto) Lymph % (Auto) [place] % (Auto) Eos % (Auto) Baso % (Auto) Lymph # (Auto) [place] # (Auto) Eos # (Auto) Baso # (Auto) Abs Immat Gran (auto) Absolute Neuts (auto) Absolute Nucleated RBC Nucleated RBC % (auto) Anion Gap Estim Creat Clear Calc Estimated GFR POC Glucose 145 H 209 H 219 H Random Glucose Lactic Acid Calcium Magnesium Total Bilirubin AST ALT Alkaline Phosphatase Total Protein Albumin Urine Color Urine Appearance Urine pH Ur Specific [place] Urine Protein Urine Glucose (UA) Urine Ketones Urine Blood Urine Nitrite Ur Leukocyte Esterase Urine RBC Urine WBC Ur Squamous Epith Cells Urine Bacteria Hyaline Casts Assessment and Plan (1) SBO (small bowel obstruction): Status: Acute (2) Incarcerated ventral hernia: Status: Acute (3) Leucocytosis: Status: Acute Plan 72 year old legally blind and obese (BMI 41.2) white female with past medical history of IBS (with constipation), CAD, T2DM (on Insulin), hypertension and s/p left foot amputation here with 1. Abdominal pain with nausea and vomiting - etiology is unclear at this time - CT abdomen and pelvis -abd hernia Continue IV fluid, antiemetics, possible need of NG tube, surgery evaluation added. 2. Hyperkalemia Patient received Lokelma in ED, potassium trended down, given another Lokelma this morning Nature BMP 3. Acute renal failure - noted with mildly worsened renal function with creatinine up to 2.33 (was 1.99 a year ago) - likely dehydrated after multiple episodes of nausea and vomiting - will give some IV fluids and re-evaluate in the morning 4. Leukocytosis - however no obvious foci of infection ua has bacteruria/pyuria,urine cultures pendin patient denies any urinary c/o. hold off any antibiotics pending urine culture 5. Elevated Troponin I - HSTnI elevated at 41.9- 31.4 ekg -poor basline denies any chest pain further workup outpatient 6. Type 2 diabetes mellitus - insulin requiring - hold Lantus tonight and restart tomorrow 7. Hypertension - BP control is not optimal at this time - restart her home meds and continue to closely follow while she is in-house DVT: SC Heparin ongoing hospitlisation need:for management of acute renal failure and hyperkalemia. Also still with unclear cause of her abdominal pain, N/V -abd hernia and surgery consult is pending. Quality Stroke Does the patient have a stroke diagnosis?: No VTE Prior VTE?: No VTE Risk Level:: Medical - moderate - high VTE Device Contraindication: Treatment Not Indicated VTE Drug Contraindication: N/A - Med Ordered
[2023-04-13 20:01] LABS: Glucose, Whole Blood 208 mg/dL (60-115)
[2023-04-14] VITALS (8 sets, daily range): BP systolic 128–178; BP diastolic 42–74; PULSE 72–104; RESP 18–20; TEMP 36.3–36.8; O2SAT 92–97
[2023-04-14] MEDS: Acetaminophen 1,000 MG/100 ML PIGGYBACK 400 MG IV ×4 (00:29→22:40)
[2023-04-14] MEDS: 0.9 % Sodium Chloride Flush 3 ML SYRINGE IVFLUSH ×4 (00:30→21:02)
[2023-04-14] MEDS: Morphine Sulfate 4 MG/ML CARTRIDGE IVPUSH ×3 (05:30→18:33)
--- NOTE | 2023-04-14 05:52 | PC.NURSE ---
Patient c/o abdominal binder being too tight and itchy on left side. Binder was adjusted for patient, mild redness under the binder on the left side, patient verbalized improvement after binder adjustment
[2023-04-14] MEDS: Omeprazole 20 MG CAPSULE.DR PO (06:14)
[2023-04-14 06:51] LABS: MANUAL DIFF FLAG NO
[2023-04-14 06:53] LABS: Basophils Percent Auto 0.3 % (0-2); Eosinophils Absolute Auto 0.4 X10*3/uL (0.0-0.4); Eosinophils Percent Auto 4.3 % (0-4); Hematocrit 36.4 % (37.0-47.0); Imm Gran Abs Auto 0.03 X10*3/uL (0.00-0.03); Imm Gran Pct Auto 0.3 % (0.0-0.4); Lymphocytes Absolute Auto 1.5 X10*3/uL (1.2-4.9); Mean Corpuscular HGB Conc 30.2 g/dl (31.0-35.0); Mean Corpuscular Hemoglobin 30.3 pg (27.0-33.0); Mean Corpuscular Volume 100.3 fL (80.0-98.0); Mean Platelet Volume 11.4 fL (9.4-12.3); Monocytes Absolute Auto 1.4 X10*3/uL (0.1-1.2); Monocytes Percent Auto 15.5 % (2-11); Neutrophils Absolute Auto 5.6 x10*3/uL (2.0-8.3); Neutrophils Percent Auto 62.6 % (45-73); Platelet Count 235 X10*3/uL (160-400); Red Blood Count 3.63 X10*6/uL (4.20-5.50); Red Cell Distribution Width 14.6 % (11.0-16.0); White Blood Count 8.9 X10*3/uL (4.8-10.8)
[2023-04-14 07:12] LABS: Anion Gap 15 (12-20); Blood Urea Nitrogen 43 mg/dL (9-16); Calcium 8.1 mg/dL (8.4-10.2); Carbon Dioxide 20 mmol/L (22-29); Chloride 115 mmol/L (96-108); Creatinine Clr Calc Pharmacy 29.7; Estimated Glomerular Filt Rate 22; Glucose Fasting 184 mg/dL (60-99); Potassium 5.9 mmol/L (3.3-5.1); Sodium 144 mmol/L (135-145)
[2023-04-14 07:39] LABS: Glucose, Whole Blood 166 mg/dL (60-115)
[2023-04-14] MEDS: Isosorbide Mononitrate 60 MG TAB.ER.24H PO (07:49)
[2023-04-14] MEDS: Gabapentin 300 MG CAPSULE PO ×3 (07:49→21:02)
[2023-04-14] MEDS: Metoprolol Tartrate 25 MG TABLET PO ×2 (07:49→21:02)
[2023-04-14] MEDS: Atorvastatin Calcium 80 MG TABLET PO (07:50)
[2023-04-14] MEDS: Sodium Zirconium Cyclosilicate 10 GM POWD.PACK PO ×2 (07:50→11:55)
[2023-04-14] MEDS: Insulin Lispro 100 UNIT/ML 3 ML VIAL SUBCUT ×2 (07:50→11:56)
--- NOTE | 2023-04-14 09:36 | PM.PNGS ---
Subjective Subjective Date of Service: 04/14/23 Interval history: Feels much better, has some incisional soreness. NGT removed this am. Denies nausea. Denies flatus. Does not think she can get OOB quite yet. Physical Exam Vital Signs: Vital Signs: Last Vital Signs Temp 97.3 F 04/14/23 07:24 Pulse 82 04/14/23 07:24 Resp 18 04/14/23 07:24 BP 135/69 04/14/23 07:24 Pulse Ox 92 04/14/23 07:24 O2 Del Method Room Air 04/14/23 07:24 O2 Flow Rate 2 04/14/23 03:21 BMI result Body Mass Index 41.2 Const: General: comfortable, no acute distress and alert Orientation/consciousness: patient oriented x3 Resp: Effort & Inspection: normal respiratory effort GI: Inspection: Yes incision (clean) Palpation (GI): Soft to palpation, Tenderness to palpation present (GI) (mild incisional), no guarding and not rigid Percussion: Yes normal to percussion Skin: General skin exam: no rashes or lesions noted Neuro: General: patient oriented x3 Objective Data Active Medications Al Hydroxide/Mg Hydroxide (Magnesium Hydrox/Alum Hydrox 30 Ml Oral.Susp) 30 ml PO Q4H PRN PRN Reason: Heartburn/Nausea Aspirin (Aspirin Enteric Coated 81 Mg Tablet.) 81 mg PO DAILY [facility] [place] Last Admin: 04/13/23 08:41 Dose: 81 mg Documented By: SUSY Atorvastatin Calcium (Atorvastatin Calcium 80 Mg Tablet) 80 mg PO DAILY [facility] [place] Last Admin: 04/14/23 07:50 Dose: 80 mg Documented By: DEBBIE Dextrose (Dextrose 50 % 25 Gm/50 Ml Syringe) 25 gm IVPUSH Q15M PRN; Protocol PRN Reason: per Hypoglycemia Standing Ord. Gabapentin (Gabapentin 300 Mg Capsule) 300 mg PO TID [facility] [place] Last Admin: 04/14/23 07:49 Dose: 300 mg Documented By: DEBBIE Glucose (Glucose Gel 15 Gm Gel..Gram.) 15 gm PO Q15M PRN; Protocol PRN Reason: per Hypoglycemia Standing Ord. Heparin Sodium (Porcine) (Heparin Sodium,Porcine 5,000 Unit/Ml Vial) 5,000 unit SUBCUT Q8H [facility] [place] Last Admin: 04/13/23 20:55 Dose: Not Given Documented By: LATA Non-Admin Reason: Pt was in PACU Sodium Chloride (Ns) 1,000 mls @ 50 mls/hr IVCONT .Q20H [facility] [place] Last Admin: 04/13/23 21:22 Dose: 50 mls/hr Documented By: LATA Acetaminophen (Ofirmev) 1,000 mg in 100 mls @ 400 mls/hr IV Q6H [facility] [place] Last Infusion: 04/14/23 05:40 Dose: Infused Documented By: TANGELA Insulin Human Lispro (Insulin Lispro 100 Unit/Ml 3 Ml Vial) 0 unit SUBCUT QIDACHS [facility] [place]; Protocol Last Admin: 04/14/23 07:50 Dose: 2 unit Documented By: DEBBIE Isosorbide Mononitrate (Isosorbide Mononitrate 60 Mg Tab.Er.24h) 60 mg PO DAILY [facility] [place]; Protocol Last Admin: 04/14/23 07:49 Dose: 60 mg Documented By: DEBBIE Magnesium Hydroxide (Milk Of Magnesia 30 Ml Oral.Susp) 30 ml PO DAILY PRN PRN Reason: Constipation Melatonin (Melatonin 3 Mg Tablet) 6 mg PO BEDTIME PRN PRN Reason: Insomnia Methenamine Hippurate (Methenamine Hippurate 1 Gm Tablet) 1 gm PO DAILY@1200 [facility] [place] Last Admin: 04/13/23 20:55 Dose: Not Given Documented By: LATA Non-Admin Reason: Pt was in PACU Metoprolol Tartrate (Metoprolol Tartrate 25 Mg Tablet) 25 mg PO BID [facility] [place]; Protocol Last Admin: 04/14/23 07:49 Dose: 25 mg Documented By: DEBBIE Morphine Sulfate (Morphine Sulfate 4 Mg/Ml Cartridge) 4 mg IVPUSH Q3H PRN; Protocol PRN Reason: Pain, Severe (Pain Scale 7-10) Last Admin: 04/14/23 05:30 Dose: 4 mg Documented By: TANGELA Nitroglycerin (Nitroglycerin 0.4 Mg Tab.Subl) 0.4 mg SUBLINGUAL Q5M PRN PRN Reason: chest pain Omeprazole (Omeprazole 20 Mg Capsule.Dr) 20 mg PO DAILY@0630 [facility] [place] Last Admin: 04/14/23 06:14 Dose: 20 mg Documented By: TANGELA Ondansetron HCl (Ondansetron Hcl 4 Mg/2 Ml Vial) 4 mg IVPUSH Q8H PRN PRN Reason: Nausea and Vomiting Last Admin: 04/13/23 08:47 Dose: 4 mg Documented By: SUSY Sodium Chloride (0.9 % Sodium Chloride Flush 3 Ml Syringe) 3 ml IVFLUSH QSHIFT [facility] [place] Last Admin: 04/14/23 07:51 Dose: 3 ml Documented By: DEBBIE Sodium Zirconium Cyclosilicate (Sodium Zirconium Cyclosilicate 10 Gm Powd.Pack) 10 gm PO MoWeFr@0900 [facility] [place] Last Admin: 04/14/23 07:50 Dose: 10 gm Documented By: DEBBIE Labs 04/14/23 06:46 04/14/23 06:46 Labs: Laboratory Results - last 24 hr 04/13/23 04/13/23 04/13/23 09:52 12:09 19:52 MCV MCH MCHC RDW Plt Count MPV Immature Gran % (Auto) Neut % (Auto) Lymph % (Auto) [place] % (Auto) Eos % (Auto) Baso % (Auto) Lymph # (Auto) [place] # (Auto) Eos # (Auto) Baso # (Auto) Abs Immat Gran (auto) Absolute Neuts (auto) Absolute Nucleated RBC Nucleated RBC % (auto) Anion Gap Estim Creat Clear Calc Estimated GFR POC Glucose 209 H 219 H 208 H Fasting Glucose Calcium 04/14/23 04/14/23 06:46 07:36 MCV 100.3 H MCH 30.3 MCHC 30.2 L RDW 14.6 Plt Count 235 MPV 11.4 Immature Gran % (Auto) 0.3 Neut % (Auto) 62.6 Lymph % (Auto) 17.0 L [place] % (Auto) 15.5 H Eos % (Auto) 4.3 H Baso % (Auto) 0.3 Lymph # (Auto) 1.5 [place] # (Auto) 1.4 H Eos # (Auto) 0.4 Baso # (Auto) 0.0 Abs Immat Gran (auto) 0.03 Absolute Neuts (auto) 5.6 Absolute Nucleated RBC 0.000 Nucleated RBC % (auto) 0.0 Anion Gap 15 Estim Creat Clear Calc 29.7 Estimated GFR 22 POC Glucose 166 H Fasting Glucose 184 H Calcium 8.1 L Microbiology Microbiology Results: Microbiology 04/12/23 Unknown Urine Culture - Preliminary Urine clean catch - Urine romero top Gram negative pineda Procedures Date of Service Date of Service: 04/14/23 Progress Note: A&P Assessment and plan (1) SBO (small bowel obstruction): Status: Acute (2) Incarcerated ventral hernia: Status: Acute Plan POD #1 s/p exploratory laparotomy, reduction of incarcerated hernia, partial amputation of omentum, enterolysis, repair of incisional hernia with Bard mesh. Intraoperative findings demonstrated incarcerated incisional hernia found to have incarcerated contents of omentum and a knuckle of small bowel twisted on itself with edematous but viable bowel. Doing fairly well post op. Abd benign with appropriate post op tenderness, clean incision. NGT output scant and removed this am. Dc stuart, can use purewick. Keep on sips of liquids for now. Encouraged OOB to recliner today. Medical management as per hospitalist service. Time Spent With Patient Time: Total time managing care of this patient today ____ minutes. Quality Stroke Does the patient have a stroke diagnosis?: No VTE Prior VTE?: No VTE Risk Level:: Medical - moderate - high VTE Device Contraindication: Treatment Not Indicated VTE Drug Contraindication: N/A - Med Ordered
[2023-04-14 11:25] LABS: Glucose, Whole Blood 151 mg/dL (60-115)
[2023-04-14] MEDS: Methenamine Hippurate 1 GM TABLET PO (11:55)
--- NOTE | 2023-04-14 12:19 | HO.POSTANES ---
Post Anesthesia Evaluation Post Anesthesia Evaluation Date of Service: 04/14/23 Vital Signs: Vital Signs Temp Pulse Resp BP Pulse Ox O2 Del Method O2 Flow Rate 04/14/23 11:10 97.3 F 73 18 141/65 H 92 Room Air 04/14/23 07:24 97.3 F 82 18 135/69 92 Room Air 04/14/23 03:21 97.5 F 82 20 174/70 H 97 Nasal Cannula 2 Anesthesia: General Endotracheal-GETA Mental Status: Awake Pain Control: Satisfactory Nausea/Vomiting: None Hydration: Adequate Anesthesia-Related Issues: No Anes. Related Issues
--- NOTE | 2023-04-14 13:32 | P.CONNP_ITS ---
History of Present Illness Reason for Consult Consult date: 04/14/23 Reason for consult: IRINA Chief Complaint Chief complaint: ARF;Hyperkalemia; Abdominal pain History of Present Illness Narrative: 72 year old legally blind and obese (BMI 41.2) white female with past medical history of CAD, T2DM (on Insulin), hypertension and s/p left foot amputation who presented to the emergency room complaining of severe generalized abdominal pain that started a last night with associated multiple episodes of non-projectile, non-bloody emesis. The onset of her symptoms was spontaneous. She denies any recent travel, sick contacts or eating outside. She has had no diarrhea. Initial lab work done was notable for worsening renal insufficiency with a serum creatinine of 2.33 (up from 1.99 a year ago), hyperkalemia with a serum potassium of 6.2 mmol/L, elevated WBC count of 14.9 k/mm3. Initial CT scan of the abdomen and pelvis did not show any acute pathology. While in the ER, she received a dose of IV Morphine, Zofran and oral Lokelma. She also received a liter of IV fluids. Nephrology is consulted to assist in her clinical care during her current hospital stay Review of Systems Review of Systems Yes all other systems are reviewed and are negative [facility] Past Medical History Medical History (Updated 04/13/23 @ 11:58 by Melly Frias RN) Hx of myocardial infarction Broken ankle Complete amputation of left foot CKD (chronic kidney disease) stage 4, GFR 15-29 ml/min CKD (chronic kidney disease) Acute and subacute ischemic heart disease Acute hyperglycemia Amputation of left foot Kidney disease High cholesterol CAD (coronary artery disease) HTN (hypertension) Diabetes Family History Family History Mother Diabetes Father Diabetes Surgical History Surgical History History of cholecystectomy History of gastric stapling History of lumpectomy Social History Social History Household Members: None Housing: Apartment Do you presently have visiting nurse or other home services: Yes (Visiting nurse) Alcohol intake: never Patient Tobacco Use Status: Never used Tobacco Advance Directives Date on File: 01/28/21 service: No Meds Allergies Allergy/AdvReac Type Severity Reaction Status Date / Time Sulfa (Sulfonamide Allergy Mild LOOPY, Verified 04/13/23 11:59 Antibiotics) memory contrast dye AdvReac Mild itchy Uncoded 02/08/23 09:11 Active Medications: Current Medications Al Hydroxide/Mg Hydroxide (Magnesium Hydrox/Alum Hydrox 30 Ml Oral.Susp) 30 ml PO Q4H PRN PRN Reason: Heartburn/Nausea Aspirin (Aspirin Enteric Coated 81 Mg Tablet.Dr) 81 mg PO DAILY [facility] Last Admin: 04/13/23 08:41 Dose: 81 mg Atorvastatin Calcium (Atorvastatin Calcium 80 Mg Tablet) 80 mg PO DAILY [facility] Last Admin: 04/14/23 07:50 Dose: 80 mg Dextrose (Dextrose 50 % 25 Gm/50 Ml Syringe) 25 gm IVPUSH Q15M PRN; Protocol PRN Reason: per Hypoglycemia Standing Ord. Gabapentin (Gabapentin 300 Mg Capsule) 300 mg PO TID [facility] Last Admin: 04/14/23 07:49 Dose: 300 mg Glucose (Glucose Gel 15 Gm Gel..Gram.) 15 gm PO Q15M PRN; Protocol PRN Reason: per Hypoglycemia Standing Ord. Heparin Sodium (Porcine) (Heparin Sodium,Porcine 5,000 Unit/Ml Vial) 5,000 unit SUBCUT Q8H [facility] Last Admin: 04/13/23 20:55 Dose: Not Given Sodium Chloride (Ns) 1,000 mls @ 50 mls/hr IVCONT .Q20H [facility] Last Admin: 04/13/23 21:22 Dose: 50 mls/hr Acetaminophen (Ofirmev) 1,000 mg in 100 mls @ 400 mls/hr IV Q6H [facility] Last Infusion: 04/14/23 12:43 Dose: Infused Insulin Human Lispro (Insulin Lispro 100 Unit/Ml 3 Ml Vial) 0 unit SUBCUT QIDACHS [facility]; Protocol Last Admin: 04/14/23 11:56 Dose: 2 unit Isosorbide Mononitrate (Isosorbide Mononitrate 60 Mg Tab.Er.24h) 60 mg PO DAILY [facility]; Protocol Last Admin: 04/14/23 07:49 Dose: 60 mg Magnesium Hydroxide (Milk Of Magnesia 30 Ml Oral.Susp) 30 ml PO DAILY PRN PRN Reason: Constipation Melatonin (Melatonin 3 Mg Tablet) 6 mg PO BEDTIME PRN PRN Reason: Insomnia Methenamine Hippurate (Methenamine Hippurate 1 Gm Tablet) 1 gm PO DAILY@1200 [facility] Last Admin: 04/14/23 11:55 Dose: 1 gm Metoprolol Tartrate (Metoprolol Tartrate 25 Mg Tablet) 25 mg PO BID [facility]; Protocol Last Admin: 04/14/23 07:49 Dose: 25 mg Morphine Sulfate (Morphine Sulfate 4 Mg/Ml Cartridge) 4 mg IVPUSH Q3H PRN; Protocol PRN Reason: Pain, Severe (Pain Scale 7-10) Last Admin: 04/14/23 11:55 Dose: 4 mg Nitroglycerin (Nitroglycerin 0.4 Mg Tab.Subl) 0.4 mg SUBLINGUAL Q5M PRN PRN Reason: chest pain Omeprazole (Omeprazole 20 Mg Capsule.Dr) 20 mg PO DAILY@0630 [facility] Last Admin: 04/14/23 06:14 Dose: 20 mg Ondansetron HCl (Ondansetron Hcl 4 Mg/2 Ml Vial) 4 mg IVPUSH Q8H PRN PRN Reason: Nausea and Vomiting Last Admin: 04/13/23 08:47 Dose: 4 mg Sodium Chloride (0.9 % Sodium Chloride Flush 3 Ml Syringe) 3 ml IVFLUSH QSHIFT [facility] Last Admin: 04/14/23 07:51 Dose: 3 ml Sodium Zirconium Cyclosilicate (Sodium Zirconium Cyclosilicate 10 Gm Powd.Pack) 10 gm PO MoWeFr@0900 [facility] Last Admin: 04/14/23 07:50 Dose: 10 gm Home Medications Medication Instructions Recorded Confirmed Last Taken Type atorvastatin 80 mg tablet 80 mg PO DAILY 05/20/21 04/12/23 04/11/22 History gabapentin 300 mg capsule 300 mg PO TID 05/20/21 04/12/23 04/11/22 History omeprazole 20 mg capsule,delayed 20 mg PO DAILY 05/20/21 04/12/23 04/11/22 History release Probiotic 1 cap PO DAILY 04/12/23 04/12/23 04/11/22 History dulaglutide 0.75 mg/0.5 mL 0.75 mg subcut ABRAMS 04/12/23 04/12/23 04/11/22 History subcutaneous pen injector (Trulicity) insulin glargine U-300 conc 300 66 unit subcut BEDTIME 04/12/23 04/12/23 04/11/22 History unit/mL (3 mL) subcutaneous pen (Toujeo Max U-300 SoloStar) insulin lispro 100 unit/mL 0 sliding scale dose subcut TIDAC 04/12/23 04/12/23 04/11/22 History subcutaneous pen (Humalog KwikPen (U-100) Insulin) methenamine hippurate 1 gram tablet 1 g PO DAILY 04/12/23 04/12/23 04/11/22 History sodium zirconium cyclosilicate 10 10 g PO MOWEFR 04/12/23 04/12/23 04/12/22 History gram oral powder packet (Lokelma) Physical Exam Vital Signs: Last Vital Signs Temp 97.3 F 04/14/23 11:10 Pulse 73 04/14/23 11:10 Resp 18 04/14/23 11:10 BP 141/65 H 04/14/23 11:10 Pulse Ox 92 04/14/23 11:10 O2 Del Method Room Air 04/14/23 11:10 O2 Flow Rate 2 04/14/23 03:21 BMI result Body Mass Index 41.2 Const General: comfortable and no acute distress Orientation/consciousness: patient oriented x3 HEENT Head: Yes normocephalic Mouth: Normal oral and palatal mucosa present Eyes EOM: EOMs intact bilaterally Neck Neck: Yes supple Resp Auscultation: clear to auscultation bilaterally Cardio Jugular venous distension: no JVD Rate: regular rate GI Palpation (GI): Soft to palpation Auscultation: normal bowel sounds General: Yes no CVA tenderness Back/Spine/Pelvis Back: no CVA tenderness Skin General skin exam: no rashes or lesions noted Neuro General: patient oriented x3 and moves all extremities Results Lab Results 04/14/23 06:46 04/14/23 06:46 Lab results: Chemistry 04/12/23 04/13/23 04/14/23 16:18 05:40 06:46 Sodium 142 142 144 Potassium 6.2 H* 5.6 H 5.9 H Carbon Dioxide 21 L 19 L 20 L BUN 50 H 46 H 43 H Creatinine 2.33 H 2.17 H 2.18 H Calcium 8.5 7.9 L D 8.1 L Hematology 04/12/23 04/13/23 04/14/23 13:18 05:40 06:46 WBC 14.9 H 9.4 8.9 Hgb 12.8 11.5 L 11.0 L Plt Count 281 261 235 Urinalysis 04/12/23 23:08 Urine Color Yellow Urine Appearance Cloudy Urine pH 5.5 Ur Specific Holt 1.015 Urine Protein 100 (2+) H Urine Glucose (UA) Negative Urine Ketones Negative Urine Blood Trace H Urine Nitrite Negative Ur Leukocyte Esterase Large (3+) H Urine RBC 11-20 H Urine WBC >50 H Ur Squamous Epith Cells 0-2 Hyaline Casts 0-2 Assessment and Plan (1) Acute kidney injury: Status: Acute (2) Acute hyperkalemia: Status: Acute Plan Caty has acute kidney injury on a backdrop of chronic kidney disease stage 4, likely due to tubular injury. She has a Doty catheter in place. There is no reason to suspect any obstructive uropathy, new acute glomerular or interstitial pathology causing IRINA. She is not on any diuretics, nonsteroidal anti- inflammatories, WOOD inhibitor or ARB. Hopefully by continued supportive care her serum creatinine will remain stable and will settled to baseline. There is no indication for any renal replacement therapy now. We should keep her on low- potassium diet and give her Lokelma as on a needed basis. She has mild metabolic acidosis which we shall correct with oral sodium bicarbonate if her serum bicarbonate drops any further. Will repeat her lab work in the morning and shall closely follow her up during her current hospital stay. She needs regular outpatient care with Dr. Bro as he is her outpatient [facility]. Further management is pending evolving data Procedures Date of Service Date of Service: 04/14/23
--- NOTE | 2023-04-14 14:01 | MHC.CM.PN ---
Pt not yet ready to be DC. She had surgery on 04/13/23. She will likely return to her [facility] and resume prior services ([facility]). CM to follow and assist with DC plan.
[2023-04-14 16:37] LABS: Glucose, Whole Blood 140 mg/dL (60-115)
--- NOTE | 2023-04-14 16:56 | P.PNIM_ITS ---
Subjective Subjective Date of Service: 04/14/23 Interval History: incarcerated incisional/ventral hernia,possible taylor on ckd Review of Systems no nausea has abd soarness,no fever Physical Exam 2 Vital Signs: Vital Signs: Last Vital Signs Temp 97.7 F 04/14/23 15:14 Pulse 80 04/14/23 15:14 Resp 18 04/14/23 15:14 BP 140/63 H 04/14/23 15:14 Pulse Ox 92 04/14/23 15:14 O2 Del Method Room Air 04/14/23 15:14 O2 Flow Rate 2 04/14/23 03:21 BMI result Body Mass Index 41.2 Appearance: Alert.? Oriented X3.? cvs: rrr, [id number] , no murmur res: clear to auscultation ,no rhonchii or wheezing abd: no rebound or guarding , mid abdomen very tender at ventral hernia sites, bs present. ext pulses present , no cyanosis . neuro: axo3 , nonfocal. Objective Data Active Medications Al Hydroxide/Mg Hydroxide (Magnesium Hydrox/Alum Hydrox 30 Ml Oral.Susp) 30 ml PO Q4H PRN PRN Reason: Heartburn/Nausea Aspirin (Aspirin Enteric Coated 81 Mg Tablet.) 81 mg PO DAILY [facility] Last Admin: 04/13/23 08:41 Dose: 81 mg Documented By: SUSY Atorvastatin Calcium (Atorvastatin Calcium 80 Mg Tablet) 80 mg PO DAILY [facility] Last Admin: 04/14/23 07:50 Dose: 80 mg Documented By: DEBBIE Dextrose (Dextrose 50 % 25 Gm/50 Ml Syringe) 25 gm IVPUSH Q15M PRN; Protocol PRN Reason: per Hypoglycemia Standing Ord. Gabapentin (Gabapentin 300 Mg Capsule) 300 mg PO TID [facility] Last Admin: 04/14/23 07:49 Dose: 300 mg Documented By: DEBBIE Glucose (Glucose Gel 15 Gm Gel..Gram.) 15 gm PO Q15M PRN; Protocol PRN Reason: per Hypoglycemia Standing Ord. Heparin Sodium (Porcine) (Heparin Sodium,Porcine 5,000 Unit/Ml Vial) 5,000 unit SUBCUT Q8H [facility] Last Admin: 04/13/23 20:55 Dose: Not Given Documented By: LATA Non-Admin Reason: Pt was in PACU Sodium Chloride (Ns) 1,000 mls @ 50 mls/hr IVCONT .Q20H [facility] Last Admin: 04/13/23 21:22 Dose: 50 mls/hr Documented By: LATA Acetaminophen (Ofirmev) 1,000 mg in 100 mls @ 400 mls/hr IV Q6H [facility] Last Infusion: 04/14/23 12:43 Dose: Infused Documented By: DEBBIE Insulin Human Lispro (Insulin Lispro 100 Unit/Ml 3 Ml Vial) 0 unit SUBCUT QIDACHS [facility]; Protocol Last Admin: 04/14/23 16:42 Dose: Not Given Documented By: DEBBIE Non-Admin Reason: No Insulin Coverage Isosorbide Mononitrate (Isosorbide Mononitrate 60 Mg Tab.Er.24h) 60 mg PO DAILY [facility]; Protocol Last Admin: 04/14/23 07:49 Dose: 60 mg Documented By: DEBBIE Magnesium Hydroxide (Milk Of Magnesia 30 Ml Oral.Susp) 30 ml PO DAILY PRN PRN Reason: Constipation Melatonin (Melatonin 3 Mg Tablet) 6 mg PO BEDTIME PRN PRN Reason: Insomnia Methenamine Hippurate (Methenamine Hippurate 1 Gm Tablet) 1 gm PO DAILY@1200 [facility] Last Admin: 04/14/23 11:55 Dose: 1 gm Documented By: DEBBIE Metoprolol Tartrate (Metoprolol Tartrate 25 Mg Tablet) 25 mg PO BID [facility]; Protocol Last Admin: 04/14/23 07:49 Dose: 25 mg Documented By: DEBBIE Morphine Sulfate (Morphine Sulfate 4 Mg/Ml Cartridge) 4 mg IVPUSH Q3H PRN; Protocol PRN Reason: Pain, Severe (Pain Scale 7-10) Last Admin: 04/14/23 11:55 Dose: 4 mg Documented By: DEBBIE Nitroglycerin (Nitroglycerin 0.4 Mg Tab.Subl) 0.4 mg SUBLINGUAL Q5M PRN PRN Reason: chest pain Omeprazole (Omeprazole 20 Mg Capsule.Dr) 20 mg PO DAILY@0630 [facility] Last Admin: 04/14/23 06:14 Dose: 20 mg Documented By: TANGELA Ondansetron HCl (Ondansetron Hcl 4 Mg/2 Ml Vial) 4 mg IVPUSH Q8H PRN PRN Reason: Nausea and Vomiting Last Admin: 04/13/23 08:47 Dose: 4 mg Documented By: SUSY Polyethyl Glycol/Propylene Glycol (Propylene Glycol/Peg 400 Gel Eye Drops 10ml) 2 drop EYE-BOTH TID [facility] Sodium Chloride (0.9 % Sodium Chloride Flush 3 Ml Syringe) 3 ml IVFLUSH QSHIFT [facility] Last Admin: 04/14/23 07:51 Dose: 3 ml Documented By: DEBBIE Sodium Zirconium Cyclosilicate (Sodium Zirconium Cyclosilicate 10 Gm Powd.Pack) 10 gm PO MoWeFr@0900 [facility] Last Admin: 04/14/23 07:50 Dose: 10 gm Documented By: DEBBIE Labs 04/14/23 06:46 04/14/23 06:46 Labs: Laboratory Results - last 24 hr 04/13/23 04/14/23 04/14/23 19:52 06:46 07:36 MCV 100.3 H MCH 30.3 MCHC 30.2 L RDW 14.6 Plt Count 235 MPV 11.4 Immature Gran % (Auto) 0.3 Neut % (Auto) 62.6 Lymph % (Auto) 17.0 L [place] % (Auto) 15.5 H Eos % (Auto) 4.3 H Baso % (Auto) 0.3 Lymph # (Auto) 1.5 [place] # (Auto) 1.4 H Eos # (Auto) 0.4 Baso # (Auto) 0.0 Abs Immat Gran (auto) 0.03 Absolute Neuts (auto) 5.6 Absolute Nucleated RBC 0.000 Nucleated RBC % (auto) 0.0 Anion Gap 15 Estim Creat Clear Calc 29.7 Estimated GFR 22 POC Glucose 208 H 166 H Fasting Glucose 184 H Calcium 8.1 L 04/14/23 04/14/23 11:18 16:34 MCV MCH MCHC RDW Plt Count MPV Immature Gran % (Auto) Neut % (Auto) Lymph % (Auto) [place] % (Auto) Eos % (Auto) Baso % (Auto) Lymph # (Auto) [place] # (Auto) Eos # (Auto) Baso # (Auto) Abs Immat Gran (auto) Absolute Neuts (auto) Absolute Nucleated RBC Nucleated RBC % (auto) Anion Gap Estim Creat Clear Calc Estimated GFR POC Glucose 151 H 140 H Fasting Glucose Calcium Microbiology Microbiology Results: Microbiology 04/12/23 Unknown Urine Culture - Preliminary Urine clean catch - Urine romero top Gram negative pineda Assessment and Plan (1) Incarcerated ventral hernia: Status: Acute Plan 72 year old legally blind and obese (BMI 41.2) white female with past medical history of IBS (with constipation), CAD, T2DM (on Insulin), hypertension and s/p left foot amputation here with 1. Abdominal pain with nausea and vomiting - etiology is unclear at this time - CT abdomen and pelvis -abd hernia Continue IV fluid, antiemetics, possible need of NG tube, s/p exploratory laparotomy, reduction of incarcerated hernia, partial amputation of omentum, enterolysis, repair of incisional hernia with Bard mesh. npo,surgery following 2. Hyperkalemia Patient received Lokelma in ED, potassium trended down, given another Lokelma this morning Nature BMP 3. Acute renal failure - noted with mildly worsened renal function with creatinine up to 2.33 (was 1.99 a year ago) - likely dehydrated after multiple episodes of nausea and vomiting - will give some IV fluids and re-evaluate in the morning 4. Leukocytosis - however no obvious foci of infection ua has bacteruria/pyuria,urine cultures pendin patient denies any urinary c/o. hold off any antibiotics pending urine culture 5. Elevated Troponin I - HSTnI elevated at 41.9- 31.4 ekg -poor basline denies any chest pain further workup outpatient 6. Type 2 diabetes mellitus - insulin requiring - hold Lantus tonight and restart tomorrow 7. Hypertension - BP control is not optimal at this time - restart her home meds and continue to closely follow while she is in-house DVT: SC Heparin ongoing hospitlisation need:for management of acute renal failure and hyperkalemia. Also still with unclear cause of her abdominal pain, N/V -s/p abd hernia repair ,hyperkalemia-need close renal function and electrolyte monitoring. Quality Stroke Does the patient have a stroke diagnosis?: No VTE Prior VTE?: No VTE Risk Level:: Medical - moderate - high VTE Device Contraindication: Treatment Not Indicated VTE Drug Contraindication: N/A - Med Ordered
--- NOTE | 2023-04-14 17:10 | PC.NURSE ---
Assumed care of patient at this time.
[2023-04-14 18:12] LABS: Potassium 5.4 mmol/L (3.3-5.1)
[2023-04-14] MEDS: cefTRIAXone sodium 1 GM in 0.9 % Sodium Chloride 50 ML IV (18:33)
[2023-04-14] MEDS: ondansetron HCL 4 MG/2 ML VIAL IVPUSH (18:33)
[2023-04-14] MEDS: 0.9 % Sodium Chloride 1,000 ML 50 ML IVCONT (18:58)
[2023-04-14 20:34] LABS: Glucose, Whole Blood 145 mg/dL (60-115)
[2023-04-15 03:20] VITALS: BP 150/57; PULSE 87; RESP 20; TEMP 36.9; O2SAT 95
[2023-04-15] MEDS: Acetaminophen 1,000 MG/100 ML PIGGYBACK 400 MG IV ×4 (04:50→22:56)
[2023-04-15] MEDS: Omeprazole 20 MG CAPSULE.DR PO (04:54)
[2023-04-15] MEDS: 0.9 % Sodium Chloride 500 ML IV (06:23)
[2023-04-15 07:29] VITALS: BP 185/77; PULSE 83; RESP 18; TEMP 37.1; O2SAT 96
--- NOTE | 2023-04-15 07:39 | PM.PNGS ---
Subjective Subjective Date of Service: 04/15/23 Interval history: C/o incisional pain. Tolerating sips of clears and denies nausea. Denies flatus. Feels a little hungry. Refused to get OOB yesterday apparently and was yelling at staff. Physical Exam Vital Signs: Vital Signs: Last Vital Signs Temp 98.8 F 04/15/23 07:29 Pulse 83 04/15/23 07:29 Resp 18 04/15/23 07:29 BP 185/77 H 04/15/23 07:29 Pulse Ox 96 04/15/23 07:29 O2 Del Method Nasal Cannula 04/15/23 07:29 O2 Flow Rate 2 04/15/23 07:29 BMI result Body Mass Index 41.2 Const: General: comfortable, no acute distress and alert Orientation/consciousness: patient oriented x3 Resp: Effort & Inspection: normal respiratory effort GI: Other: protuberant abdomen Inspection: No distended and Yes incision (clean) Palpation (GI): Soft to palpation, Tenderness to palpation present (GI) (mild incisional), no guarding and not rigid Skin: General skin exam: no rashes or lesions noted Neuro: General: patient oriented x3 Objective Data Active Medications Al Hydroxide/Mg Hydroxide (Magnesium Hydrox/Alum Hydrox 30 Ml Oral.Susp) 30 ml PO Q4H PRN PRN Reason: Heartburn/Nausea Aspirin (Aspirin Enteric Coated 81 Mg Tablet.) 81 mg PO DAILY [facility] Last Admin: 04/13/23 08:41 Dose: 81 mg Documented By: SUSY Atorvastatin Calcium (Atorvastatin Calcium 80 Mg Tablet) 80 mg PO DAILY [facility] Last Admin: 04/14/23 07:50 Dose: 80 mg Documented By: DEBBIE Dextrose (Dextrose 50 % 25 Gm/50 Ml Syringe) 25 gm IVPUSH Q15M PRN; Protocol PRN Reason: per Hypoglycemia Standing Ord. Gabapentin (Gabapentin 300 Mg Capsule) 300 mg PO TID [facility] Last Admin: 04/14/23 21:02 Dose: 300 mg Documented By: BELA Glucose (Glucose Gel 15 Gm Gel..Gram.) 15 gm PO Q15M PRN; Protocol PRN Reason: per Hypoglycemia Standing Ord. Heparin Sodium (Porcine) (Heparin Sodium,Porcine 5,000 Unit/Ml Vial) 5,000 unit SUBCUT Q8H [facility] Last Admin: 04/13/23 20:55 Dose: Not Given Documented By: LATA Non-Admin Reason: Pt was in PACU Sodium Chloride (Ns) 1,000 mls @ 75 mls/hr IVCONT .[id number] [facility] Last Admin: 04/14/23 18:58 Dose: 50 mls/hr Documented By: BELA Acetaminophen (Ofirmev) 1,000 mg in 100 mls @ 400 mls/hr IV Q6H [facility] Last Infusion: 04/15/23 05:10 Dose: Infused Documented By: ANTYAMILE Ceftriaxone Sodium 1 gm/ (Sodium Chloride) 50 mls @ 100 mls/hr IV Q24H [facility] Last Infusion: 04/14/23 19:20 Dose: Infused Documented By: BELA Insulin Human Lispro (Insulin Lispro 100 Unit/Ml 3 Ml Vial) 0 unit SUBCUT QIDACHS [facility]; Protocol Last Admin: 04/14/23 20:38 Dose: Not Given Documented By: BELA Non-Admin Reason: No Insulin Coverage Isosorbide Mononitrate (Isosorbide Mononitrate 60 Mg Tab.Er.24h) 60 mg PO DAILY [facility]; Protocol Last Admin: 04/14/23 07:49 Dose: 60 mg Documented By: DEBBIE Magnesium Hydroxide (Milk Of Magnesia 30 Ml Oral.Susp) 30 ml PO DAILY PRN PRN Reason: Constipation Melatonin (Melatonin 3 Mg Tablet) 6 mg PO BEDTIME PRN PRN Reason: Insomnia Methenamine Hippurate (Methenamine Hippurate 1 Gm Tablet) 1 gm PO DAILY@1200 [facility] Last Admin: 04/14/23 11:55 Dose: 1 gm Documented By: DEBBIE Metoprolol Tartrate (Metoprolol Tartrate 25 Mg Tablet) 25 mg PO BID [facility]; Protocol Last Admin: 04/14/23 21:02 Dose: 25 mg Documented By: BELA Morphine Sulfate (Morphine Sulfate 4 Mg/Ml Cartridge) 4 mg IVPUSH Q3H PRN; Protocol PRN Reason: Pain, Severe (Pain Scale 7-10) Last Admin: 04/14/23 18:33 Dose: 4 mg Documented By: BELA Nitroglycerin (Nitroglycerin 0.4 Mg Tab.Subl) 0.4 mg SUBLINGUAL Q5M PRN PRN Reason: chest pain Omeprazole (Omeprazole 20 Mg Capsule.) 20 mg PO DAILY@0630 [facility] Last Admin: 04/15/23 04:54 Dose: 20 mg Documented By: ANTYAMILE Ondansetron HCl (Ondansetron Hcl 4 Mg/2 Ml Vial) 4 mg IVPUSH Q8H PRN PRN Reason: Nausea and Vomiting Last Admin: 04/14/23 18:33 Dose: 4 mg Documented By: BELA Polyethyl Glycol/Propylene Glycol (Propylene Glycol/Peg 400 Gel Eye Drops 10ml) 2 drop EYE-BOTH TID [facility] Last Admin: 04/14/23 21:02 Dose: Not Given Documented By: BELA Non-Admin Reason: Med Not Available Sodium Chloride (0.9 % Sodium Chloride Flush 3 Ml Syringe) 3 ml IVFLUSH QSHIFT [facility] Last Admin: 04/14/23 21:02 Dose: 3 ml Documented By: BELA Sodium Zirconium Cyclosilicate (Sodium Zirconium Cyclosilicate 10 Gm Powd.Pack) 10 gm PO MoWeFr@0900 [facility] Last Admin: 04/14/23 07:50 Dose: 10 gm Documented By: DEBBIE Labs 04/14/23 06:46 04/14/23 17:39 Labs: Laboratory Results - last 24 hr 04/14/23 04/14/23 04/14/23 07:36 11:18 16:34 POC Glucose 166 H 151 H 140 H 04/14/23 20:30 POC Glucose 145 H Microbiology Microbiology Results: Microbiology 04/12/23 Unknown Urine Culture - Preliminary Urine clean catch - Urine romero top Gram negative pineda Procedures Date of Service Date of Service: 04/15/23 Progress Note: A&P Assessment and plan (1) SBO (small bowel obstruction): Status: Acute (2) Incarcerated ventral hernia: Status: Acute Plan POD #2 s/p exploratory laparotomy, reduction of incarcerated hernia, partial amputation of omentum, enterolysis, repair of incisional hernia with Bard mesh. Intraoperative findings demonstrated incarcerated incisional hernia found to have incarcerated contents of omentum and a knuckle of small bowel twisted on itself with edematous but viable bowel. Continues to do fairly well post op. Abd benign with appropriate post op tenderness, clean incision. Will advance to clear liquids. Discussed getting OOB to recliner today and IS use and their importance in return of GI function, respiratory status. Cont abd binder. Medical management as per hospitalist service. Time Spent With Patient Time: Total time managing care of this patient today ____ minutes. Quality Stroke Does the patient have a stroke diagnosis?: No VTE Prior VTE?: No VTE Risk Level:: Medical - moderate - high VTE Device Contraindication: Treatment Not Indicated VTE Drug Contraindication: N/A - Med Ordered
[2023-04-15 07:56] LABS: Glucose, Whole Blood 137 mg/dL (60-115)
[2023-04-15 08:50] VITALS: RESP 14
[2023-04-15] MEDS: Morphine Sulfate 4 MG/ML CARTRIDGE IVPUSH (08:50)
[2023-04-15] MEDS: Metoprolol Tartrate 25 MG TABLET PO ×2 (08:51→20:28)
[2023-04-15] MEDS: Gabapentin 300 MG CAPSULE PO ×3 (08:51→20:29)
[2023-04-15] MEDS: 0.9 % Sodium Chloride Flush 3 ML SYRINGE IVFLUSH ×3 (08:51→20:29)
[2023-04-15] MEDS: Isosorbide Mononitrate 60 MG TAB.ER.24H PO (08:51)
[2023-04-15] MEDS: Atorvastatin Calcium 80 MG TABLET PO (08:51)
[2023-04-15] MEDS: Propylene Glycol/PEG 400 Gel Eye Drops 10ML 2 DROP EYE-BOTH ×3 (08:52→20:28)
[2023-04-15 10:11] LABS: Anion Gap 11 (12-20); Blood Urea Nitrogen 39 mg/dL (9-16); Calcium 8.2 mg/dL (8.4-10.2); Carbon Dioxide 22 mmol/L (22-29); Chloride 114 mmol/L (96-108); Creatinine Clr Calc Pharmacy 33.8; Estimated Glomerular Filt Rate 26; Glucose Random 145 mg/dL (60-115); Potassium 5.4 mmol/L (3.3-5.1); Sodium 142 mmol/L (135-145)
[2023-04-15 11:10] VITALS: BP 174/70; PULSE 75; RESP 20; TEMP 36.9; O2SAT 95
[2023-04-15 11:14] LABS: Glucose, Whole Blood 138 mg/dL (60-115)
[2023-04-15] MEDS: Methenamine Hippurate 1 GM TABLET PO (12:55)
--- NOTE | 2023-04-15 13:23 | HO.WOUND ---
Wound Consult: Initial 72yr old F ?admitted to [facility] on? 04/12/23- See progress notes and H&P for detailed history.? Wound consult placed for Coccyx, Skin Folds, Nose, and Left Amputation site. Arrival to bedside patient is agreeable to assessment and photo documentation. Coccyx Etiology: ??Stage 2 Pressure Injury - POA Measurements: see charting for details Wound Bed: pink red moist wound bed nonblanchable in areas over coccyx Drainage / Odor: none noted Edges: ?iregular Miri wound: MASD (Moisture Associated Skin Damage Incontinence related) No Induration, Fluctuance or Warmth noted Pain: Tenderness noted with cleansing Goals of Treatment: ? continue to off load pressure and Triad to allow for moist wound healing and protect from friction and moisture Abdominal Skin Folds -Intertrigo Skin folds and Perineum Etiology: ??MASD (Moisture Associated Skin Damage) Measurements: see charting for details Wound Bed: pink red moist wound bed with scattered areas of partial thickness tissue loss at base of skin fold Drainage / Odor: small smount of serosang Edges: ?Linear to base of skin fold Miri wound: MASD (Moisture Associated Skin Damage Incontinence related) No Induration, Fluctuance or Warmth noted Pain: Tenderness noted with cleansing Goals of Treatment: ?Triad to allow for moist wound healing and protect from friction and moisture Left Leg - Diabetic wound Left Lower Leg Etiology: ??Diabetic Wound - appears chronic Measurements: see charting for details Wound Bed: pink red moist wound bed with thin layer of slough noted Drainage / Odor: no odor yellow drainage noted when dressing removed Edges: ?epibole Miri wound: callused and moist No Induration, Fluctuance or Warmth noted Pain: Tenderness noted with cleansing Goals of Treatment: ? continue to off load pressure and alginate to allow for moist wound healing Right Nare - Device related Mucosal Injury Right Nare Etiology: ??Device Related Mucosal Pressure Injury (NG tube since removed) Measurements: see charting for details Wound Bed: maroon intact nonblanchable tissue central area with scab vs eschar no drainage noted - stable Drainage / Odor: None noted Edges: ? Irregular and attached Miri wound: Intact ? No Induration, Fluctuance or Warmth noted Pain: Tenderness noted Goals of Treatment: ? Device since removed - continue to off load pressure and Hydoroclloid to allow for moist wound healing and protect from friction Recommendations: 1. Turn and Reposition every 2 hours and as needed for patient comfort.? Use pillows or wedges to support off loading positions. 2. Off Load all bony prominences with use of pillows and heel boots if needed.? Apply Preventative foams where needed. ? 3. Monitor for incontinence and moisture control, use barrier creams when needed for prevention and treatment. 4. Provide adequate and supplemental nutrition. Place Nutrition consult if appropriate. 5. Continue low air loss mattress. JAMAL in place. 6. Maintain blood glucose levels per Providers orders if applicable. 7. Coccyx, Perineum and Skin Folds - Off Load Pressure - Cleanse with PH balance spray or wipes, pat dry. ?Apply thin layer of Triad to wound bed - only pat and dab no scrub and rub when soiling occurs. Reapply thin layer PRN after each episode of incontinence. 8. Right Nare - Cleanse with NS moist gauze, cover with cut to fit Hydrocolloid, change every 3 days and PRN for lifting. 9. Left Lower Leg - Cleanse and irrigate with NS, Pat dry.? Apply barrier to periwound, lightly pack with Alginate / Durafiber AG, be sure to leave a wick to easy removal.? Cover with Foam dressing. (may cover with gauze wrap if desired.? Change Daily. Re-consult wound care Nurse for wound deterioration or wound changes.
[2023-04-15 15:40] VITALS: BP 149/68; PULSE 75; RESP 20; TEMP 36.9; O2SAT 94
--- NOTE | 2023-04-15 16:10 | P.CDIM_ITS ---
PROVIDER RESPONSE TEXT: To clarify, the appropriate diagnosis supported by the clinical indicators: Obesity Due to excess calories QUERY TEXT: PHYSICIAN'S DOCUMENTATION REQUEST Date of Query: 04/14/2023 10:24 AM EST Patient Name: Caty Akers Admit Date: 04/13/2023 Dear Benjamin Cunningham, A review of the medical record indicates additional documentation may be needed. Please review below and update the documentation accordingly. Clinical Indicators: Height: ( ) 5'6 Weight: ( ) 115.666 kg BMI: ( ) 41.2 Other Clinical Notes Supporting Significance of the BMI: No nutritional note If possible, please provide an associated diagnosis related to the abnormal BMI, such as: Overweight Obesity Due to excess calories Obesity Drug induced Obesity Due to other cause Specify the other cause Severe or Morbid Obesity With alveolar hypoventilation Severe or Morbid Obesity Without alveolar hypoventilation BMI is not significant Other (explain) Clinically unable to determine (explain) Thank you, Rosa Smith RN Use of terms such as suspected, likely, concern for, or probable (associated with a specific diagnosi s that is being evaluated, monitored, or treated as if it exists) are acceptable and can be coded in the inpatient se tting, when documented at the time of discharge. Please use your independent medical judgment in providing your response. THIS QUERY IS PART OF THE PERMANENT MEDICAL RECORD
--- NOTE | 2023-04-15 17:24 | HO.PM.IMPN ---
Subjective Subjective Date of Service: 04/15/23 Interval History: patient still has abd soarness Review of Systems She denies any nausea vomiting Not much motivated to take clear liquids, encouraged her in detail. She said she is passing gases Physical Exam Vital Signs: Vital Signs: Last Vital Signs Temp 98.4 F 04/15/23 15:40 Pulse 75 04/15/23 15:40 Resp 20 04/15/23 15:40 BP 149/68 H 04/15/23 15:40 Pulse Ox 94 04/15/23 15:40 O2 Del Method Nasal Cannula 04/15/23 15:40 O2 Flow Rate 2 04/15/23 15:40 Oxygen Flow Rate 2 04/15/23 14:00 BMI result Body Mass Index 41.2 Appearance: Alert.? Oriented X3.? cvs: rrr, [id number] , no murmur res: clear to auscultation ,no rhonchii or wheezing abd: no rebound or guarding , soarness in abd incision area , bs present. ext pulses present , no cyanosis . neuro: axo3 , nonfocal. Objective Data Active Medications Al Hydroxide/Mg Hydroxide (Magnesium Hydrox/Alum Hydrox 30 Ml Oral.Susp) 30 ml PO Q4H PRN PRN Reason: Heartburn/Nausea Aspirin (Aspirin Enteric Coated 81 Mg Tablet.) 81 mg PO DAILY [facility] Last Admin: 04/13/23 08:41 Dose: 81 mg Documented By: SUSY Atorvastatin Calcium (Atorvastatin Calcium 80 Mg Tablet) 80 mg PO DAILY [facility] Last Admin: 04/15/23 08:51 Dose: 80 mg Documented By: EDWIN Dextrose (Dextrose 50 % 25 Gm/50 Ml Syringe) 25 gm IVPUSH Q15M PRN; Protocol PRN Reason: per Hypoglycemia Standing Ord. Gabapentin (Gabapentin 300 Mg Capsule) 300 mg PO TID [facility] Last Admin: 04/15/23 15:47 Dose: 300 mg Documented By: JOHNNY Glucose (Glucose Gel 15 Gm Gel..Gram.) 15 gm PO Q15M PRN; Protocol PRN Reason: per Hypoglycemia Standing Ord. Heparin Sodium (Porcine) (Heparin Sodium,Porcine 5,000 Unit/Ml Vial) 5,000 unit SUBCUT Q8H [facility] Last Admin: 04/13/23 20:55 Dose: Not Given Documented By: LATA Non-Admin Reason: Pt was in PACU Acetaminophen (Ofirmev) 1,000 mg in 100 mls @ 400 mls/hr IV Q6H [facility] Last Infusion: 04/15/23 13:45 Dose: Infused Documented By: EDWIN Ceftriaxone Sodium 1 gm/ (Sodium Chloride) 50 mls @ 100 mls/hr IV Q24H [facility] Last Infusion: 04/14/23 19:20 Dose: Infused Documented By: BELA Insulin Human Lispro (Insulin Lispro 100 Unit/Ml 3 Ml Vial) 0 unit SUBCUT QIDACHS [facility]; Protocol Last Admin: 04/15/23 11:15 Dose: Not Given Documented By: EDWIN Non-Admin Reason: No Insulin Coverage Isosorbide Mononitrate (Isosorbide Mononitrate 60 Mg Tab.Er.24h) 60 mg PO DAILY [facility]; Protocol Last Admin: 04/15/23 08:51 Dose: 60 mg Documented By: EDWIN Magnesium Hydroxide (Milk Of Magnesia 30 Ml Oral.Susp) 30 ml PO DAILY PRN PRN Reason: Constipation Melatonin (Melatonin 3 Mg Tablet) 6 mg PO BEDTIME PRN PRN Reason: Insomnia Methenamine Hippurate (Methenamine Hippurate 1 Gm Tablet) 1 gm PO DAILY@1200 [facility] Last Admin: 04/15/23 12:55 Dose: 1 gm Documented By: EDWIN Metoprolol Tartrate (Metoprolol Tartrate 25 Mg Tablet) 25 mg PO BID [facility]; Protocol Last Admin: 04/15/23 08:51 Dose: 25 mg Documented By: EDWIN Morphine Sulfate (Morphine Sulfate 4 Mg/Ml Cartridge) 4 mg IVPUSH Q3H PRN; Protocol PRN Reason: Pain, Severe (Pain Scale 7-10) Last Admin: 04/15/23 08:50 Dose: 4 mg Documented By: EDWIN Nitroglycerin (Nitroglycerin 0.4 Mg Tab.Subl) 0.4 mg SUBLINGUAL Q5M PRN PRN Reason: chest pain Omeprazole (Omeprazole 20 Mg Capsule.Dr) 20 mg PO DAILY@0630 [facility] Last Admin: 04/15/23 04:54 Dose: 20 mg Documented By: ANTYAMILE Ondansetron HCl (Ondansetron Hcl 4 Mg/2 Ml Vial) 4 mg IVPUSH Q8H PRN PRN Reason: Nausea and Vomiting Last Admin: 04/14/23 18:33 Dose: 4 mg Documented By: BELA Polyethyl Glycol/Propylene Glycol (Propylene Glycol/Peg 400 Gel Eye Drops 10ml) 2 drop EYE-BOTH TID [facility] Last Admin: 04/15/23 15:47 Dose: 2 drop Documented By: JOHNNY Sodium Chloride (0.9 % Sodium Chloride Flush 3 Ml Syringe) 3 ml IVFLUSH QSHIFT [facility] Last Admin: 04/15/23 08:51 Dose: 3 ml Documented By: VANNESAGOKAMILA Sodium Zirconium Cyclosilicate (Sodium Zirconium Cyclosilicate 10 Gm Powd.Pack) 10 gm PO MoWeFr@0900 [facility] Last Admin: 04/14/23 07:50 Dose: 10 gm Documented By: DEBBIE Labs 04/14/23 06:46 04/15/23 09:30 Labs: Laboratory Results - last 24 hr 04/14/23 04/15/23 04/15/23 20:30 07:28 09:30 Anion Gap 11 L Estim Creat Clear Calc 33.8 Estimated GFR 26 POC Glucose 145 H 137 H Random Glucose 145 H Calcium 8.2 L 04/15/23 11:08 Anion Gap Estim Creat Clear Calc Estimated GFR POC Glucose 138 H Random Glucose Calcium Microbiology Microbiology Results: Microbiology 04/12/23 Unknown Urine Culture - Final Urine clean catch - Urine romero top Citrobacter freundii Assessment and Plan (1) Incarcerated ventral hernia: Status: Acute Plan 72 year old legally blind and obese (BMI 41.2) white female with past medical history of IBS (with constipation), CAD, T2DM (on Insulin), hypertension and s/p left foot amputation here with Abdominal pain with nausea and vomiting - etiology is unclear at this time - CT abdomen and pelvis -abd hernia Continue IV fluid, antiemetics, possible need of NG tube, s/p exploratory laparotomy, reduction of incarcerated hernia, partial amputation of omentum, enterolysis, repair of incisional hernia with Bard mesh. npo,surgery following Hyperkalemia Patient received Lokelma in ED, potassium trended down, given another Lokelma. Nature BMP Acute renal failure:improving near baseline with will give some IV fluids and now on clear liquids Leukocytosis with possible ?uti ua has bacteruria/pyuria,urine cultures pendin patient denies any urinary c/o. urine culture -citrobacter freundi start iv ceftriaxone day 2,pending urine culture Type 2 diabetes mellitus - insulin requiring - hold Lantus tonight and restart tomorrow Hypertension - BP control is not optimal at this time - restart her home meds and continue to closely follow while she is in-house. morbid obesity: encouraged to lose weight and cut down calories. DVT: SC Heparin ongoing hospitlisation need:for management of acute renal failure and hyperkalemia. Also still with unclear cause of her abdominal pain, N/V -s/p abd hernia repair ,hyperkalemia-need close renal function and electrolyte monitoring. Quality Stroke Does the patient have a stroke diagnosis?: No VTE Prior VTE?: No VTE Risk Level:: Medical - moderate - high VTE Device Contraindication: Treatment Not Indicated VTE Drug Contraindication: N/A - Med Ordered
[2023-04-15 17:30] LABS: Glucose, Whole Blood 137 mg/dL (60-115)
[2023-04-15] MEDS: Sodium Zirconium Cyclosilicate 10 GM POWD.PACK PO (17:38)
[2023-04-15] MEDS: cefTRIAXone sodium 1 GM in 0.9 % Sodium Chloride 50 ML IV (17:39)
[2023-04-15 20:10] LABS: Glucose, Whole Blood 164 mg/dL (60-115)
[2023-04-15] MEDS: Insulin Lispro 100 UNIT/ML 3 ML VIAL SUBCUT (20:29)
[2023-04-15 22:59] VITALS: BP 143/52; PULSE 78; RESP 17; TEMP 36.9; O2SAT 93
[2023-04-16] VITALS (7 sets, daily range): BP systolic 116–179; BP diastolic 65–89; PULSE 71–96; RESP 16–20; TEMP 36.3–37.2; O2SAT 89–96; BMI 41.2
[2023-04-16] MEDS: Morphine Sulfate 4 MG/ML CARTRIDGE IVPUSH ×2 (02:05→09:19)
--- NOTE | 2023-04-16 04:30 | PM.PNNEP ---
Subjective Subjective Date of Service: 04/15/23 Interval history: Events noted. All recent data reviewed. Still has some abdominal pain. Physical Exam Vital Signs: Vital Signs: Last Vital Signs Temp 98.4 F 04/15/23 22:59 Pulse 78 04/15/23 22:59 Resp 17 04/15/23 22:59 BP 143/52 H 04/15/23 22:59 Pulse Ox 93 04/15/23 22:59 O2 Del Method Nasal Cannula 04/15/23 22:59 O2 Flow Rate 2 04/15/23 22:59 Oxygen Flow Rate 2 04/15/23 14:00 BMI result Body Mass Index 41.2 Const: General: no acute distress Orientation/consciousness: patient oriented x3 HEENT: Head: Yes normocephalic Mouth: Normal oral and palatal mucosa present Eyes: EOM: EOMs intact bilaterally Neck: Neck: Yes supple Resp: Auscultation: clear to auscultation bilaterally Cardio: Jugular venous distension: no JVD Rate: regular rate GI: Palpation (GI): Soft to palpation Auscultation: normal bowel sounds : General: Yes no CVA tenderness Back/Spine/Pelvis: Back: no CVA tenderness Skin: General skin exam: no rashes or lesions noted Neuro: General: patient oriented x3 and moves all extremities Objective Data Labs 04/14/23 06:46 04/15/23 09:30 Labs: Laboratory Results - last 24 hr 04/15/23 04/15/23 04/15/23 07:28 09:30 11:08 Sodium 142 Potassium 5.4 H Chloride 114 H Carbon Dioxide 22 Anion Gap 11 L BUN 39 H Creatinine 1.91 H Estim Creat Clear Calc 33.8 Estimated GFR 26 POC Glucose 137 H 138 H Random Glucose 145 H Calcium 8.2 L 04/15/23 04/15/23 17:26 20:04 Sodium Potassium Chloride Carbon Dioxide Anion Gap BUN Creatinine Estim Creat Clear Calc Estimated GFR POC Glucose 137 H 164 H Random Glucose Calcium Microbiology Microbiology Results: Microbiology 04/12/23 Unknown Urine clean catch - Urine romero top Urine Culture - Final Citrobacter freundii Procedures Date of Service Date of Service: 04/16/23 Assessment & Plan Assessment and plan (1) Acute kidney injury: Status: Acute Plan Caty has acute kidney injury on a backdrop of chronic kidney disease stage 4, likely due to tubular injury which has resolved. Her renal functions are back to baseline. She has a Doty catheter in place. There is no reason to suspect any obstructive uropathy, new acute glomerular or interstitial pathology causing IRINA. She is not on any diuretics, nonsteroidal anti-inflammatories, WOOD inhibitor or ARB. We should keep her on low-potassium diet and give her Lokelma as on a needed basis. She has mild metabolic acidosis which we shall correct with oral sodium bicarbonate if her serum bicarbonate drops any further. Will repeat her lab work in the morning and shall closely follow her up during her current hospital stay. She needs regular outpatient care with Dr. Bro as he is her outpatient [employer]. Further management is pending evolving data Time Spent With Patient Time: . Progress Note: Quality Stroke Does the patient have a stroke diagnosis?: No
[2023-04-16] MEDS: Acetaminophen 1,000 MG/100 ML PIGGYBACK 400 MG IV (05:54)
[2023-04-16] MEDS: Omeprazole 20 MG CAPSULE.DR PO (05:54)
[2023-04-16 07:51] LABS: Glucose, Whole Blood 162 mg/dL (60-115)
[2023-04-16 08:07] LABS: Anion Gap 12 (12-20); Blood Urea Nitrogen 38 mg/dL (9-16); Calcium 8.5 mg/dL (8.4-10.2); Carbon Dioxide 22 mmol/L (22-29); Chloride 112 mmol/L (96-108); Estimated Glomerular Filt Rate 28; Glucose Random 166 mg/dL (60-115); Potassium 5.1 mmol/L (3.3-5.1); Sodium 141 mmol/L (135-145)
--- NOTE | 2023-04-16 08:25 | P.PNGS_ITS ---
Subjective Subjective Date of Service: 04/16/23 Interval history: Seems a little confused today, states she was in another place and wants to go back there. Is not sleeping well. Complaining that she is not getting her usual eye drops and everyone is trying to move her. Having pain at her incision and pain all over from her arthritis. Passing flatus and feels hungry. Physical Exam 2 Vital Signs: Vital Signs: Last Vital Signs Temp 97.4 F 04/16/23 07:51 Pulse 96 04/16/23 07:51 Resp 20 04/16/23 07:51 BP 151/67 H 04/16/23 07:51 Pulse Ox 95 04/16/23 07:51 O2 Del Method Nasal Cannula 04/16/23 07:51 O2 Flow Rate 2 04/16/23 07:51 Oxygen Flow Rate 2 04/15/23 14:00 BMI result Body Mass Index 41.2 Const: Orientation/consciousness: oriented to person and oriented to place Resp: Effort & Inspection: normal respiratory effort GI: Inspection: Yes distended (mildly ) and Yes incision (clean) Palpation (GI): Soft to palpation, Tenderness to palpation present (GI) (mild incisional ), no guarding and not rigid Percussion: Yes normal to percussion Skin: General skin exam: no rashes or lesions noted Neuro: General: oriented to person and oriented to place Objective Data Active Medications Al Hydroxide/Mg Hydroxide (Magnesium Hydrox/Alum Hydrox 30 Ml Oral.Susp) 30 ml PO Q4H PRN PRN Reason: Heartburn/Nausea Aspirin (Aspirin Enteric Coated 81 Mg Tablet.) 81 mg PO DAILY [facility] Last Admin: 04/13/23 08:41 Dose: 81 mg Documented By: SUSY Atorvastatin Calcium (Atorvastatin Calcium 80 Mg Tablet) 80 mg PO DAILY [facility] Last Admin: 04/15/23 08:51 Dose: 80 mg Documented By: EDWIN Dextrose (Dextrose 50 % 25 Gm/50 Ml Syringe) 25 gm IVPUSH Q15M PRN; Protocol PRN Reason: per Hypoglycemia Standing Ord. Gabapentin (Gabapentin 300 Mg Capsule) 300 mg PO TID [facility] Last Admin: 04/15/23 20:29 Dose: 300 mg Documented By: FLORA Glucose (Glucose Gel 15 Gm Gel..Gram.) 15 gm PO Q15M PRN; Protocol PRN Reason: per Hypoglycemia Standing Ord. Heparin Sodium (Porcine) (Heparin Sodium,Porcine 5,000 Unit/Ml Vial) 5,000 unit SUBCUT Q8H [facility] Last Admin: 04/13/23 20:55 Dose: Not Given Documented By: LATA Non-Admin Reason: Pt was in PACU Acetaminophen (Ofirmev) 1,000 mg in 100 mls @ 400 mls/hr IV Q6H [facility] Last Infusion: 04/16/23 06:21 Dose: Infused Documented By: FLORA Ceftriaxone Sodium 1 gm/ (Sodium Chloride) 50 mls @ 100 mls/hr IV Q24H [facility] Last Infusion: 04/15/23 18:21 Dose: Infused Documented By: JOHNNY Insulin Human Lispro (Insulin Lispro 100 Unit/Ml 3 Ml Vial) 0 unit SUBCUT QIDACHS [facility]; Protocol Last Admin: 04/15/23 20:29 Dose: 2 unit Documented By: FLORA Isosorbide Mononitrate (Isosorbide Mononitrate 60 Mg Tab.Er.24h) 60 mg PO DAILY [facility]; Protocol Last Admin: 04/15/23 08:51 Dose: 60 mg Documented By: EDWIN Magnesium Hydroxide (Milk Of Magnesia 30 Ml Oral.Susp) 30 ml PO DAILY PRN PRN Reason: Constipation Melatonin (Melatonin 3 Mg Tablet) 6 mg PO BEDTIME PRN PRN Reason: Insomnia Methenamine Hippurate (Methenamine Hippurate 1 Gm Tablet) 1 gm PO DAILY@1200 [facility] Last Admin: 04/15/23 12:55 Dose: 1 gm Documented By: EDWIN Metoprolol Tartrate (Metoprolol Tartrate 25 Mg Tablet) 25 mg PO BID [facility]; Protocol Last Admin: 04/15/23 20:28 Dose: 25 mg Documented By: FLORA Morphine Sulfate (Morphine Sulfate 4 Mg/Ml Cartridge) 4 mg IVPUSH Q3H PRN; Protocol PRN Reason: Pain, Severe (Pain Scale 7-10) Last Admin: 04/16/23 02:05 Dose: 4 mg Documented By: FLORA Nitroglycerin (Nitroglycerin 0.4 Mg Tab.Subl) 0.4 mg SUBLINGUAL Q5M PRN PRN Reason: chest pain Omeprazole (Omeprazole 20 Mg Capsule.) 20 mg PO DAILY@0630 [facility] Last Admin: 04/16/23 05:54 Dose: 20 mg Documented By: FLORA Ondansetron HCl (Ondansetron Hcl 4 Mg/2 Ml Vial) 4 mg IVPUSH Q8H PRN PRN Reason: Nausea and Vomiting Last Admin: 04/14/23 18:33 Dose: 4 mg Documented By: BELA Polyethyl Glycol/Propylene Glycol (Propylene Glycol/Peg 400 Gel Eye Drops 10ml) 2 drop EYE-BOTH TID [facility] Last Admin: 04/15/23 20:28 Dose: 2 drop Documented By: FLORA Sodium Chloride (0.9 % Sodium Chloride Flush 3 Ml Syringe) 3 ml IVFLUSH QSHIFT [facility] Last Admin: 04/15/23 20:29 Dose: 3 ml Documented By: FLORA Sodium Zirconium Cyclosilicate (Sodium Zirconium Cyclosilicate 10 Gm Powd.Pack) 10 gm PO MoWeFr@0900 [facility] Last Admin: 04/14/23 07:50 Dose: 10 gm Documented By: DEBBIE Labs 04/14/23 06:46 04/16/23 06:29 Labs: Laboratory Results - last 24 hr 04/15/23 04/15/23 04/15/23 09:30 11:08 17:26 Hold Purple Top Anion Gap 11 L Estim Creat Clear Calc 33.8 Estimated GFR 26 POC Glucose 138 H 137 H Random Glucose 145 H Calcium 8.2 L 04/15/23 04/16/23 04/16/23 20:04 06:29 07:44 Hold Purple Top SEE NOTE Anion Gap 12 Estim Creat Clear Calc 36.0 Estimated GFR 28 POC Glucose 164 H 162 H Random Glucose 166 H Calcium 8.5 Microbiology Microbiology Results: Microbiology 04/12/23 Unknown Urine Culture - Final Urine clean catch - Urine romero top Citrobacter freundii Procedures Date of Service Date of Service: 04/16/23 Progress Note: A&P Assessment and plan (1) SBO (small bowel obstruction): Status: Acute (2) Incarcerated ventral hernia: Status: Acute Plan POD #3 s/p exploratory laparotomy, reduction of incarcerated hernia, partial amputation of omentum, enterolysis, repair of incisional hernia with Bard mesh. Intraoperative findings demonstrated incarcerated incisional hernia found to have incarcerated contents of omentum and a knuckle of small bowel twisted on itself with edematous but viable bowel. Seems confused this morning. Abd benign with appropriate post op tenderness, clean incision. Has some evidence of return of GI function, will advance to solid diet. Again encouraged getting OOB to recliner today and IS use and their importance in her recovery. Cont abd binder. Medical management as per hospitalist service. Time Spent With Patient Time: Total time managing care of this patient today ____ minutes. Quality Stroke Does the patient have a stroke diagnosis?: No VTE Prior VTE?: No VTE Risk Level:: Medical - moderate - high VTE Device Contraindication: Treatment Not Indicated VTE Drug Contraindication: N/A - Med Ordered
[2023-04-16] MEDS: Gabapentin 300 MG CAPSULE PO ×3 (09:18→21:26)
[2023-04-16] MEDS: Insulin Lispro 100 UNIT/ML 3 ML VIAL SUBCUT ×4 (09:18→21:26)
[2023-04-16] MEDS: Atorvastatin Calcium 80 MG TABLET PO (09:18)
[2023-04-16] MEDS: Sodium Zirconium Cyclosilicate 10 GM POWD.PACK PO (09:18)
[2023-04-16] MEDS: Metoprolol Tartrate 25 MG TABLET PO ×2 (09:18→21:26)
[2023-04-16] MEDS: Isosorbide Mononitrate 60 MG TAB.ER.24H PO (09:18)
[2023-04-16] MEDS: 0.9 % Sodium Chloride Flush 3 ML SYRINGE IVFLUSH ×2 (09:19→17:09)
--- NOTE | 2023-04-16 09:46 | PC.NURSE ---
Pt AOx3 at this time , claims she has been having hallucinations on and off. Pt states that this happens when she has a UTI.
--- NOTE | 2023-04-16 10:27 | MHC.CM.PN ---
[facility] REVIEWED, PER HOSPITALIST PT NOT YET READY FOR DC SHE HAS NOT HAD BM, P.T. RECOMMENDING STR, REFERRAL TO BE PLACED TO [facility] IT IS PREFERRED SNF, CM WILL CONT TO FOLLOW DC NEEDS.
[2023-04-16 11:41] LABS: Glucose, Whole Blood 165 mg/dL (60-115)
[2023-04-16] MEDS: Methenamine Hippurate 1 GM TABLET PO (12:00)
--- NOTE | 2023-04-16 13:14 | HO.WOUND ---
Wound Consult: Follow up 72yr old F ?[place] [facility] [place]- See progress notes and H&P for detailed history.? Wound consult placed for Coccyx, Skin Folds, Nose, and Left Amputation site. Todays follow up was for the right nare wound - remains Device related Unstageable Musocal Injury. Arrival to bedside pt had no dressing in place - wound bed dry adherent eschar vs scab. No open tissue noted at this time. Pt reports it was lifting so she peeled the dressing off. Pt requests no dressing in place at this time. May leave open to air at this time as scab vs eschar is stable and intact. No erythema noted, no drainage noted no fluctuance noted. Arrival to bedside patient is agreeable to assessment and photo documentation. Right Nare - Unchanged today - pt refusing dressing at this time. Oxygen has since been discontinued as well. Etiology: ??Device Related Mucosal Pressure Injury (NG tube since removed) Wound Bed: maroon intact nonblanchable tissue central area with scab vs eschar no drainage noted - stable Drainage / Odor: None noted Edges: ? Irregular and attached Miri wound: Intact ? No Induration, Fluctuance or Warmth noted Pain: Tenderness noted Goals of Treatment: ? Device since removed - continue to off load pressure and Hydoroclloid to allow for moist wound healing and protect from friction Left Lower Leg Etiology: ??Diabetic Wound - appears chronic Wound Bed: pink red moist clean wound bed Drainage / Odor: no odor yellow drainage noted when dressing removed Edges: ?epibole Miri wound: callused and dry No Induration, Fluctuance or Warmth noted Pain: denies Goals of Treatment: ? continue to off load pressure and alginate to allow for moist wound healing Coccyx - not assessed today ?Stage 2 Pressure Injury - POA Continue current topical recommendations. Abdominal Skin Folds -Intertrigo not assessed today continue current topical recommendations. Recommendations: 1. Turn and Reposition every 2 hours and as needed for patient comfort.? Use pillows or wedges to support off loading positions. 2. Off Load all bony prominences with use of pillows and heel boots if needed.? Apply Preventative foams where needed. ? 3. Monitor for incontinence and moisture control, use barrier creams when needed for prevention and treatment. 4. Provide adequate and supplemental nutrition. Place Nutrition consult if appropriate. 5. Continue low air loss mattress. JAMAL in place. 6. Maintain blood glucose levels per Providers orders if applicable. 7. Coccyx, Perineum and Skin Folds - Off Load Pressure - Cleanse with PH balance spray or wipes, pat dry. ?Apply thin layer of Triad to wound bed - only pat and dab no scrub and rub when soiling occurs. Reapply thin layer PRN after each episode of incontinence. 8. Right Nare - Cleanse with NS moist gauze, cover with cut to fit Hydrocolloid, change every 3 days and PRN for lifting. 9. Left Lower Leg - Cleanse and irrigate with NS, Pat dry.? Apply barrier to periwound, lightly pack with Alginate / Durafiber AG, be sure to leave a wick to easy removal.? Cover with Foam dressing. (may cover with gauze wrap if desired.? Change Daily. Re-consult wound care Nurse for wound deterioration or wound changes.
--- NOTE | 2023-04-16 13:50 | P.PNNP_ITS ---
Subjective Subjective Date of Service: 04/16/23 Interval history: Events noted. All recent data reviewed. Physical Exam 2 Vital Signs: Vital Signs: Last Vital Signs Temp 99 F 04/16/23 11:40 Pulse 80 04/16/23 11:40 Resp 16 04/16/23 11:40 BP 116/67 04/16/23 11:40 Pulse Ox 91 L 04/16/23 11:40 O2 Del Method Room Air 04/16/23 11:40 O2 Flow Rate 2 04/16/23 07:51 Oxygen Flow Rate 2 04/15/23 14:00 BMI result Body Mass Index 41.2 Const: General: comfortable and no acute distress O rientation/consciousness: patient oriented x3 HEENT: Head: Yes normocephalic Mouth: Normal oral and palatal mucosa present Eyes: EOM: EOMs intact bilaterally Neck: Neck: Yes supple Resp: Auscultation: clear to auscultation bilaterally Cardio: Jugular venous distension: no JVD Rate: regular rate Heart sounds: Murmur heart sound present GI: Palpation (GI): Soft to palpation Auscultation: normal bowel sounds : General: Yes no CVA tenderness Back/Spine/Pelvis: Back: no CVA tenderness Skin: General skin exam: no rashes or lesions noted Neuro: General: patient oriented x3 and moves all extremities Extrem: General: Yes no pedal edema Objective Data Labs 04/14/23 06:46 04/16/23 06:29 Labs: Laboratory Results - last 24 hr 04/15/23 04/15/23 04/16/23 17:26 20:04 06:29 Hold Purple Top SEE NOTE Sodium 141 Potassium 5.1 Chloride 112 H Carbon Dioxide 22 Anion Gap 12 BUN 38 H Creatinine 1.80 H Estim Creat Clear Calc 36.0 Estimated GFR 28 POC Glucose 137 H 164 H Random Glucose 166 H Calcium 8.5 04/16/23 04/16/23 07:44 11:37 Hold Purple Top Sodium Potassium Chloride Carbon Dioxide Anion Gap BUN Creatinine Estim Creat Clear Calc Estimated GFR POC Glucose 162 H 165 H Random Glucose Calcium Microbiology Microbiology Results: Microbiology 04/12/23 Unknown Urine clean catch - Urine romero top Urine Culture - Final Citrobacter freundii Procedures Date of Service Date of Service: 04/16/23 Assessment & Plan Assessment and plan (1) Acute kidney injury: Status: Acute (2) CKD (chronic kidney disease) stage 4, GFR 15-29 ml/min: Status: Acute Plan Caty has acute kidney injury on a backdrop of chronic kidney disease stage 4, likely due to tubular injury which has resolved. Her renal functions are back to baseline. There is no reason to suspect any obstructive uropathy, new acute glomerular or interstitial pathology causing IRINA. She is not on any diuretics, nonsteroidal anti-inflammatories, WOOD inhibitor or ARB. We should keep her on low-potassium diet and give her Lokelma as on a needed basis. She has mild metabolic acidosis which we shall correct with oral sodium bicarbonate if her serum bicarbonate drops any further. Will repeat her lab work in the morning and shall closely follow her up during her current hospital stay. She needs regular outpatient care with Dr. Bro as he is her outpatient [employer]. Further management is pending evolving data Progress Note: Quality Stroke Does the patient have a stroke diagnosis?: No
--- NOTE | 2023-04-16 14:31 | P.PNIM_ITS ---
Subjective Subjective Date of Service: 04/16/23 Interval History: patient still has abd soarness but improving then yesterday Review of Systems She denies any nausea vomiting Not much motivated to take clear liquids, abd soarness seems improving She said she is passing gases Physical Exam 2 Vital Signs: Vital Signs: Last Vital Signs Temp 99 F 04/16/23 11:40 Pulse 80 04/16/23 11:40 Resp 16 04/16/23 11:40 BP 116/67 04/16/23 11:40 Pulse Ox 91 L 04/16/23 11:40 O2 Del Method Room Air 04/16/23 11:40 O2 Flow Rate 2 04/16/23 07:51 Oxygen Flow Rate 2 04/15/23 14:00 BMI result Body Mass Index 41.2 Appearance: Alert.? Oriented X3.? cvs: rrr, [id number] , no murmur res: clear to auscultation ,no rhonchii or wheezing abd: no rebound or guarding , soarness in abd incision area , bs present. ext pulses present , no cyanosis . neuro: axo3 , nonfocal. Objective Data Active Medications Acetaminophen (Acetaminophen 325 Mg Tablet) 975 mg PO TID [facility] Al Hydroxide/Mg Hydroxide (Magnesium Hydrox/Alum Hydrox 30 Ml Oral.Susp) 30 ml PO Q4H PRN PRN Reason: Heartburn/Nausea Aspirin (Aspirin Enteric Coated 81 Mg Tablet.) 81 mg PO DAILY [facility] Last Admin: 04/13/23 08:41 Dose: 81 mg Documented By: SUSY Atorvastatin Calcium (Atorvastatin Calcium 80 Mg Tablet) 80 mg PO DAILY [facility] Last Admin: 04/16/23 09:18 Dose: 80 mg Documented By: BEVERLY Dextrose (Dextrose 50 % 25 Gm/50 Ml Syringe) 25 gm IVPUSH Q15M PRN; Protocol PRN Reason: per Hypoglycemia Standing Ord. Gabapentin (Gabapentin 300 Mg Capsule) 300 mg PO TID [facility] Last Admin: 04/16/23 09:18 Dose: 300 mg Documented By: BEVERLY Glucose (Glucose Gel 15 Gm Gel..Gram.) 15 gm PO Q15M PRN; Protocol PRN Reason: per Hypoglycemia Standing Ord. Heparin Sodium (Porcine) (Heparin Sodium,Porcine 5,000 Unit/Ml Vial) 5,000 unit SUBCUT Q8H [facility] Last Admin: 04/13/23 20:55 Dose: Not Given Documented By: LATA Non-Admin Reason: Pt was in PACU Ceftriaxone Sodium 1 gm/ (Sodium Chloride) 50 mls @ 100 mls/hr IV Q24H [facility] Last Infusion: 04/15/23 18:21 Dose: Infused Documented By: JOHNNY Insulin Human Lispro (Insulin Lispro 100 Unit/Ml 3 Ml Vial) 0 unit SUBCUT QIDACHS [facility]; Protocol Last Admin: 04/16/23 11:59 Dose: 2 unit Documented By: JOHNNY Isosorbide Mononitrate (Isosorbide Mononitrate 60 Mg Tab.Er.24h) 60 mg PO DAILY [facility]; Protocol Last Admin: 04/16/23 09:18 Dose: 60 mg Documented By: BEVERLY Lorazepam (Lorazepam 1 Mg Tablet) 1 mg PO TID PRN PRN Reason: Anxiety Magnesium Hydroxide (Milk Of Magnesia 30 Ml Oral.Susp) 30 ml PO DAILY PRN PRN Reason: Constipation Melatonin (Melatonin 3 Mg Tablet) 6 mg PO BEDTIME PRN PRN Reason: Insomnia Methenamine Hippurate (Methenamine Hippurate 1 Gm Tablet) 1 gm PO DAILY@1200 [facility] Last Admin: 04/16/23 12:00 Dose: 1 gm Documented By: JOHNNY Metoprolol Tartrate (Metoprolol Tartrate 25 Mg Tablet) 25 mg PO BID [facility]; Protocol Last Admin: 04/16/23 09:18 Dose: 25 mg Documented By: BEVERLY Morphine Sulfate (Morphine Sulfate 4 Mg/Ml Cartridge) 4 mg IVPUSH Q3H PRN; Protocol PRN Reason: Pain, Severe (Pain Scale 7-10) Last Admin: 04/16/23 09:19 Dose: 4 mg Documented By: BEVERLY Nitroglycerin (Nitroglycerin 0.4 Mg Tab.Subl) 0.4 mg SUBLINGUAL Q5M PRN PRN Reason: chest pain Omeprazole (Omeprazole 20 Mg Capsule.Dr) 20 mg PO DAILY@0630 [facility] Last Admin: 04/16/23 05:54 Dose: 20 mg Documented By: FLORA Ondansetron HCl (Ondansetron Hcl 4 Mg/2 Ml Vial) 4 mg IVPUSH Q8H PRN PRN Reason: Nausea and Vomiting Last Admin: 04/14/23 18:33 Dose: 4 mg Documented By: BELA Polyethyl Glycol/Propylene Glycol (Propylene Glycol/Peg 400 Gel Eye Drops 10ml) 2 drop EYE-BOTH TID [facility] Last Admin: 04/16/23 09:40 Dose: Not Given Documented By: BEVERLY Non-Admin Reason: Administered by Alternate Route Sodium Chloride (0.9 % Sodium Chloride Flush 3 Ml Syringe) 3 ml IVFLUSH QSHIFT [facility] Last Admin: 04/16/23 09:19 Dose: 3 ml Documented By: BEVERLY Sodium Zirconium Cyclosilicate (Sodium Zirconium Cyclosilicate 10 Gm Powd.Pack) 10 gm PO MoWeFr@0900 [facility] Last Admin: 04/16/23 09:18 Dose: 10 gm Documented By: BEVERLY Labs 04/14/23 06:46 04/16/23 06:29 Labs: Laboratory Results - last 24 hr 04/15/23 04/15/23 04/16/23 17:26 20:04 06:29 Hold Purple Top SEE NOTE Anion Gap 12 Estim Creat Clear Calc 36.0 Estimated GFR 28 POC Glucose 137 H 164 H Random Glucose 166 H Calcium 8.5 04/16/23 04/16/23 07:44 11:37 Hold Purple Top Anion Gap Estim Creat Clear Calc Estimated GFR POC Glucose 162 H 165 H Random Glucose Calcium Assessment and Plan (1) CKD (chronic kidney disease) stage 4, GFR 15-29 ml/min: Status: Acute (2) Incarcerated ventral hernia: Status: Acute Plan 72 year old legally blind and obese (BMI 41.2) white female with past medical history of IBS (with constipation), CAD, T2DM (on Insulin), hypertension and s/p left foot amputation here with Abdominal pain with nausea and vomiting - etiology is unclear at this time - CT abdomen and pelvis -abd hernia Continue IV fluid, antiemetics, possible need of NG tube, s/p exploratory laparotomy, reduction of incarcerated hernia, partial amputation of omentum, enterolysis, repair of incisional hernia with Bard mesh. npo,surgery following Hyperkalemia improved with loklema Nature BMP Acute renal failure:improving near baseline with will give some IV fluids and now on clear liquids Leukocytosis with possible ?uti ua has bacteruria/pyuria,urine cultures pendin patient denies any urinary c/o. urine culture -citrobacter freundi start iv ceftriaxone day 2,pending urine culture Type 2 diabetes mellitus - insulin requiring - hold Lantus tonight and restart tomorrow Hypertension - BP control is not optimal at this time - restart her home meds and continue to closely follow while she is in-house. morbid obesity: encouraged to lose weight and cut down calories. DVT: SC Heparin ongoing hospitlisation need:for management of acute renal failure and hyperkalemia. Also still with unclear cause of her abdominal pain, N/V -s/p abd hernia repair ,hyperkalemia-need close renal function and electrolyte monitoring. Quality Stroke Does the patient have a stroke diagnosis?: No VTE Prior VTE?: No VTE Risk Level:: Medical - moderate - high VTE Device Contraindication: Treatment Not Indicated VTE Drug Contraindication: N/A - Med Ordered
[2023-04-16] MEDS: Acetaminophen 325 MG TABLET 975 MG PO ×2 (16:49→21:25)
[2023-04-16] MEDS: cefTRIAXone sodium 1 GM in 0.9 % Sodium Chloride 50 ML IV (17:09)
[2023-04-16 17:18] LABS: Glucose, Whole Blood 176 mg/dL (60-115)
[2023-04-16 20:12] LABS: Glucose, Whole Blood 198 mg/dL (60-115)
[2023-04-16] MEDS: Heparin Sodium,Porcine 5,000 UNIT/ML VIAL 5000 UNIT SUBCUT (21:26)
[2023-04-17] VITALS (9 sets, daily range): BP systolic 120–184; BP diastolic 55–79; PULSE 65–76; RESP 16–18; TEMP 36–37; O2SAT 84–99
[2023-04-17] MEDS: 0.9 % Sodium Chloride Flush 3 ML SYRINGE IVFLUSH ×4 (01:44→23:33)
[2023-04-17] MEDS: LORazepam 1 MG TABLET PO ×2 (04:31→15:41)
[2023-04-17] MEDS: Heparin Sodium,Porcine 5,000 UNIT/ML VIAL 5000 UNIT SUBCUT ×3 (04:32→20:15)
[2023-04-17] MEDS: Morphine Sulfate 4 MG/ML CARTRIDGE IVPUSH ×2 (04:32→15:40)
[2023-04-17] MEDS: Omeprazole 20 MG CAPSULE.DR PO (04:54)
[2023-04-17 07:43] LABS: Glucose, Whole Blood 193 mg/dL (60-115)
--- NOTE | 2023-04-17 08:38 | P.PNGS_ITS ---
Subjective Subjective Date of Service: 04/17/23 Interval history: POD#4 status post repair of incisional hernia. Overall she feels okay with continued incisional pain mainly. Reports lack of energy at this time. Physical Exam 2 Vital Signs: Vital Signs: Last Vital Signs Temp 96.8 F 04/17/23 07:29 Pulse 76 04/17/23 07:29 Resp 18 04/17/23 07:29 BP 184/79 H 04/17/23 07:29 Pulse Ox 99 04/17/23 07:29 O2 Del Method Oxymask 04/17/23 07:29 O2 Flow Rate 2 04/17/23 07:29 Oxygen Flow Rate 2 04/15/23 14:00 BMI result Body Mass Index 41.2 Const: General: no acute distress Nutritional Appearance: well nourished Orientation/consciousness: patient oriented x3 Resp: Effort & Inspection: normal respiratory effort and no audible wheezes GI: Other: Soft and nondistended, midline incision is clean without redness or discharge. Skin: Other: Warm, dry, no rash Neuro: General: patient oriented x3 Objective Data Active Medications Acetaminophen (Acetaminophen 325 Mg Tablet) 975 mg PO TID [facility] Last Admin: 04/16/23 21:25 Dose: 975 mg Documented By: SARAH Al Hydroxide/Mg Hydroxide (Magnesium Hydrox/Alum Hydrox 30 Ml Oral.Susp) 30 ml PO Q4H PRN PRN Reason: Heartburn/Nausea Aspirin (Aspirin Enteric Coated 81 Mg Tablet.) 81 mg PO DAILY [facility] Last Admin: 04/13/23 08:41 Dose: 81 mg Documented By: SUSY Atorvastatin Calcium (Atorvastatin Calcium 80 Mg Tablet) 80 mg PO DAILY [facility] Last Admin: 04/16/23 09:18 Dose: 80 mg Documented By: BEVERLY Dextrose (Dextrose 50 % 25 Gm/50 Ml Syringe) 25 gm IVPUSH Q15M PRN; Protocol PRN Reason: per Hypoglycemia Standing Ord. Gabapentin (Gabapentin 300 Mg Capsule) 300 mg PO TID [facility] Last Admin: 04/16/23 21:26 Dose: 300 mg Documented By: SARAH Glucose (Glucose Gel 15 Gm Gel..Gram.) 15 gm PO Q15M PRN; Protocol PRN Reason: per Hypoglycemia Standing Ord. Heparin Sodium (Porcine) (Heparin Sodium,Porcine 5,000 Unit/Ml Vial) 5,000 unit SUBCUT Q8H [facility] Last Admin: 04/17/23 04:32 Dose: 5,000 unit Ceftriaxone Sodium 1 gm/ (Sodium Chloride) 50 mls @ 100 mls/hr IV Q24H [facility] Last Infusion: 04/16/23 17:46 Dose: Infused Documented By: MADELINE Insulin Human Lispro (Insulin Lispro 100 Unit/Ml 3 Ml Vial) 0 unit SUBCUT QIDACHS [facility]; Protocol Last Admin: 04/16/23 21:26 Dose: 2 unit Documented By: SARAH Isosorbide Mononitrate (Isosorbide Mononitrate 60 Mg Tab.Er.24h) 60 mg PO DAILY [facility]; Protocol Last Admin: 04/16/23 09:18 Dose: 60 mg Documented By: BEVERLY Lorazepam (Lorazepam 1 Mg Tablet) 1 mg PO TID PRN PRN Reason: Anxiety Last Admin: 04/17/23 04:31 Dose: 1 mg Documented By: SARAH Magnesium Hydroxide (Milk Of Magnesia 30 Ml Oral.Susp) 30 ml PO DAILY PRN PRN Reason: Constipation Melatonin (Melatonin 3 Mg Tablet) 6 mg PO BEDTIME PRN PRN Reason: Insomnia Methenamine Hippurate (Methenamine Hippurate 1 Gm Tablet) 1 gm PO DAILY@1200 [facility] Last Admin: 04/16/23 12:00 Dose: 1 gm Documented By: JOHNNY Metoprolol Tartrate (Metoprolol Tartrate 25 Mg Tablet) 25 mg PO BID [facility]; Protocol Last Admin: 04/16/23 21:26 Dose: 25 mg Documented By: SARAH Morphine Sulfate (Morphine Sulfate 4 Mg/Ml Cartridge) 4 mg IVPUSH Q3H PRN; Protocol PRN Reason: Pain, Severe (Pain Scale 7-10) Last Admin: 04/17/23 04:32 Dose: 4 mg Documented By: SARAH Nitroglycerin (Nitroglycerin 0.4 Mg Tab.Subl) 0.4 mg SUBLINGUAL Q5M PRN PRN Reason: chest pain Omeprazole (Omeprazole 20 Mg Capsule.Dr) 20 mg PO DAILY@0630 [facility] Last Admin: 04/17/23 04:54 Dose: 20 mg Documented By: SARAH Ondansetron HCl (Ondansetron Hcl 4 Mg/2 Ml Vial) 4 mg IVPUSH Q8H PRN PRN Reason: Nausea and Vomiting Last Admin: 04/14/23 18:33 Dose: 4 mg Documented By: BELA Polyethyl Glycol/Propylene Glycol (Propylene Glycol/Peg 400 Gel Eye Drops 10ml) 2 drop EYE-BOTH TID [facility] Last Admin: 04/16/23 21:29 Dose: Not Given Documented By: SARAH Non-Admin Reason: Med Not Available Sodium Chloride (0.9 % Sodium Chloride Flush 3 Ml Syringe) 3 ml IVFLUSH QSHIFT [facility] Last Admin: 04/17/23 01:44 Dose: 3 ml Documented By: SARAH Sodium Zirconium Cyclosilicate (Sodium Zirconium Cyclosilicate 10 Gm Powd.Pack) 10 gm PO MoWeFr@0900 [facility] Last Admin: 04/16/23 09:18 Dose: 10 gm Documented By: DARINAC Labs 04/14/23 06:46 04/16/23 06:29 Labs: Laboratory Results - last 24 hr 04/16/23 04/16/23 04/16/23 11:37 16:03 20:03 POC Glucose 165 H 176 H 198 H 04/17/23 07:34 POC Glucose 193 H Procedures Date of Service Date of Service: 04/17/23 Progress Note: A&P Assessment and plan (1) SBO (small bowel obstruction): Status: Acute (2) Incarcerated ventral hernia: Status: Acute Plan POD #4 s/p exploratory laparotomy, reduction of incarcerated hernia, partial amputation of omentum, enterolysis, repair of incisional hernia with Bard mesh. Intraoperative findings demonstrated incarcerated incisional hernia found to have incarcerated contents of omentum and a knuckle of small bowel twisted on itself with edematous but viable bowel. Abd benign with appropriate post op tenderness, clean incision. Has some evidence of return of GI function. Continue with solid diet and encouraged getting OOB/IS. Medical management as per hospitalist service. Time Spent With Patient Time: Total time managing care of this patient today ____ minutes. Quality Stroke Does the patient have a stroke diagnosis?: No VTE Prior VTE?: No VTE Risk Level:: Medical - moderate - high VTE Device Contraindication: Treatment Not Indicated VTE Drug Contraindication: N/A - Med Ordered
[2023-04-17] MEDS: Milk of Magnesia 30 ML ORAL.SUSP PO (08:39)
[2023-04-17] MEDS: Propylene Glycol/PEG 400 Gel Eye Drops 10ML 2 DROP EYE-BOTH ×3 (08:39→20:15)
[2023-04-17] MEDS: Insulin Lispro 100 UNIT/ML 3 ML VIAL SUBCUT ×4 (08:39→20:28)
[2023-04-17] MEDS: Furosemide 40 MG/4 ML VIAL IVPUSH (08:39)
[2023-04-17] MEDS: Metoprolol Tartrate 25 MG TABLET PO (08:40)
[2023-04-17] MEDS: Isosorbide Mononitrate 60 MG TAB.ER.24H PO (08:40)
[2023-04-17] MEDS: Atorvastatin Calcium 80 MG TABLET PO (08:40)
[2023-04-17] MEDS: Gabapentin 300 MG CAPSULE PO ×3 (08:40→20:17)
[2023-04-17] MEDS: Acetaminophen 325 MG TABLET 975 MG PO ×3 (08:40→20:16)
[2023-04-17 11:04] LABS: Glucose, Whole Blood 221 mg/dL (60-115)
[2023-04-17] MEDS: Methenamine Hippurate 1 GM TABLET PO (11:50)
--- NOTE | 2023-04-17 12:14 | HO.PM.IMPN ---
Subjective Subjective Date of Service: 04/17/23 Interval History: abd soarness improving passing gases no bm's yet encouraged for pi inatke Review of Systems no new events overnight Physical Exam Vital Signs: Vital Signs: Last Vital Signs Temp 96.8 F 04/17/23 07:29 Pulse 76 04/17/23 07:29 Resp 18 04/17/23 07:29 BP 184/79 H 04/17/23 07:29 Pulse Ox 99 04/17/23 07:29 O2 Del Method Oxymask 04/17/23 07:29 O2 Flow Rate 2 04/17/23 07:29 Oxygen Flow Rate 2 04/15/23 14:00 BMI result Body Mass Index 41.2 Appearance: Alert.? Oriented X3.? cvs: rrr, [id number] , no murmur res: clear to auscultation ,no rhonchii or wheezing abd: no rebound or guarding , soarness in abd incision area , bs present. ext pulses present , no cyanosis . neuro: axo3 , nonfocal. Objective Data Active Medications Acetaminophen (Acetaminophen 325 Mg Tablet) 975 mg PO TID [facility] Last Admin: 04/17/23 08:40 Dose: 975 mg Documented By: JAI Al Hydroxide/Mg Hydroxide (Magnesium Hydrox/Alum Hydrox 30 Ml Oral.Susp) 30 ml PO Q4H PRN PRN Reason: Heartburn/Nausea Aspirin (Aspirin Enteric Coated 81 Mg Tablet.) 81 mg PO DAILY [facility] Last Admin: 04/13/23 08:41 Dose: 81 mg Documented By: SUSY Atorvastatin Calcium (Atorvastatin Calcium 80 Mg Tablet) 80 mg PO DAILY [facility] Last Admin: 04/17/23 08:40 Dose: 80 mg Documented By: JAI Dextrose (Dextrose 50 % 25 Gm/50 Ml Syringe) 25 gm IVPUSH Q15M PRN; Protocol PRN Reason: per Hypoglycemia Standing Ord. Gabapentin (Gabapentin 300 Mg Capsule) 300 mg PO TID [facility] Last Admin: 04/17/23 08:40 Dose: 300 mg Documented By: JAI Glucose (Glucose Gel 15 Gm Gel..Gram.) 15 gm PO Q15M PRN; Protocol PRN Reason: per Hypoglycemia Standing Ord. Heparin Sodium (Porcine) (Heparin Sodium,Porcine 5,000 Unit/Ml Vial) 5,000 unit SUBCUT Q8H [facility] Last Admin: 04/17/23 11:50 Dose: 5,000 unit Documented By: COTEMA Ceftriaxone Sodium 1 gm/ (Sodium Chloride) 50 mls @ 100 mls/hr IV Q24H [facility] Last Infusion: 04/16/23 17:46 Dose: Infused Documented By: MADELINE Insulin Human Lispro (Insulin Lispro 100 Unit/Ml 3 Ml Vial) 0 unit SUBCUT QIDACHS [facility]; Protocol Last Admin: 04/17/23 11:50 Dose: 4 unit Documented By: COTEMA Isosorbide Mononitrate (Isosorbide Mononitrate 60 Mg Tab.Er.24h) 60 mg PO DAILY [facility]; Protocol Last Admin: 04/17/23 08:40 Dose: 60 mg Documented By: JAMESEMA Lorazepam (Lorazepam 1 Mg Tablet) 1 mg PO TID PRN PRN Reason: Anxiety Last Admin: 04/17/23 04:31 Dose: 1 mg Documented By: SARAH Magnesium Hydroxide (Milk Of Magnesia 30 Ml Oral.Susp) 30 ml PO DAILY PRN PRN Reason: Constipation Last Admin: 04/17/23 08:39 Dose: 30 ml Documented By: JAI Melatonin (Melatonin 3 Mg Tablet) 6 mg PO BEDTIME PRN PRN Reason: Insomnia Methenamine Hippurate (Methenamine Hippurate 1 Gm Tablet) 1 gm PO DAILY@1200 [facility] Last Admin: 04/17/23 11:50 Dose: 1 gm Documented By: JAMESEMA Metoprolol Tartrate (Metoprolol Tartrate 25 Mg Tablet) 25 mg PO BID [facility]; Protocol Last Admin: 04/17/23 08:40 Dose: 25 mg Documented By: JAI Morphine Sulfate (Morphine Sulfate 4 Mg/Ml Cartridge) 4 mg IVPUSH Q3H PRN; Protocol PRN Reason: Pain, Severe (Pain Scale 7-10) Last Admin: 04/17/23 04:32 Dose: 4 mg Documented By: SARAH Nitroglycerin (Nitroglycerin 0.4 Mg Tab.Subl) 0.4 mg SUBLINGUAL Q5M PRN PRN Reason: chest pain Omeprazole (Omeprazole 20 Mg Capsule.Dr) 20 mg PO DAILY@0630 [facility] Last Admin: 04/17/23 04:54 Dose: 20 mg Documented By: SARAH Ondansetron HCl (Ondansetron Hcl 4 Mg/2 Ml Vial) 4 mg IVPUSH Q8H PRN PRN Reason: Nausea and Vomiting Last Admin: 04/14/23 18:33 Dose: 4 mg Documented By: BELA Polyethyl Glycol/Propylene Glycol (Propylene Glycol/Peg 400 Gel Eye Drops 10ml) 2 drop EYE-BOTH TID [facility] Last Admin: 04/17/23 08:39 Dose: 2 drop Documented By: JAMESEMA Sodium Chloride (0.9 % Sodium Chloride Flush 3 Ml Syringe) 3 ml IVFLUSH QSHIFT [facility] Last Admin: 04/17/23 08:40 Dose: 3 ml Documented By: COTEMA Sodium Zirconium Cyclosilicate (Sodium Zirconium Cyclosilicate 10 Gm Powd.Pack) 10 gm PO MoWeFr@0900 [facility] Last Admin: 04/16/23 09:18 Dose: 10 gm Documented By: WILLIAC Labs 04/14/23 06:46 04/16/23 06:29 Labs: Laboratory Results - last 24 hr 04/16/23 04/16/23 04/17/23 16:03 20:03 07:34 POC Glucose 176 H 198 H 193 H 04/17/23 11:01 POC Glucose 221 H Assessment and Plan (1) Incarcerated ventral hernia: Status: Acute (2) CKD (chronic kidney disease) stage 4, GFR 15-29 ml/min: Status: Acute Plan 72 year old legally blind and obese (BMI 41.2) white female with past medical history of IBS (with constipation), CAD, T2DM (on Insulin), hypertension and s/p left foot amputation here with Abdominal pain with nausea and vomiting - etiology is unclear at this time - CT abdomen and pelvis -abd hernia Continue IV fluid, antiemetics, possible need of NG tube, s/p exploratory laparotomy, reduction of incarcerated hernia, partial amputation of omentum, enterolysis, repair of incisional hernia with Bard mesh. advance diet ,luxative ,incentive sprio surgery following Hyperkalemia improved with loklema Nature BMP Acute renal failure:improving near baseline with will give some IV fluids and now on clear liquids Leukocytosis with possible ?uti ua has bacteruria/pyuria,urine cultures pendin patient denies any urinary c/o. urine culture -citrobacter freundi start iv ceftriaxone day 3,pending urine culture Type 2 diabetes mellitus:controlled hold Lantus tonight and restart tomorrow Hypertension: flactauting - BP control is not optimal at this time switched metoprolol to coreg,continue imdur,if need may add small dose amlodipine morbid obesity: encouraged to lose weight and cut down calories. DVT: SC Heparin ongoing hospitlisation need:for management of acute renal failure and hyperkalemia,s/p abd hernia surgery-passing gases no bm's yet, flactuating bp -need edgardo medication adjustement and moniter renal function and electrolytes due to taylor/hyperkalemia. Quality Stroke Does the patient have a stroke diagnosis?: No VTE Prior VTE?: No VTE Risk Level:: Medical - moderate - high VTE Device Contraindication: Treatment Not Indicated VTE Drug Contraindication: N/A - Med Ordered
[2023-04-17] MEDS: carvediloL 6.25 MG TABLET PO ×2 (13:40→20:17)
[2023-04-17 16:20] LABS: Glucose, Whole Blood 211 mg/dL (60-115)
--- NOTE | 2023-04-17 17:01 | PC.NURSE ---
patient seen by Dr. Cunningham,Oxygen removed,sat 91% on room air while sleeping,Dr. Cunningham notified,patient sleeping comfortably
[2023-04-17] MEDS: cefTRIAXone sodium 1 GM in 0.9 % Sodium Chloride 50 ML IV (17:13)
--- NOTE | 2023-04-17 18:39 | PC.NURSE ---
Sat 84% on RA while sleeping,patient placed back on oxygen via oxymask at 2 L,Sat up to 97%,Dr. Carrington notified.
[2023-04-17 20:19] LABS: Glucose, Whole Blood 213 mg/dL (60-115)
[2023-04-18] VITALS (9 sets, daily range): BP systolic 107–184; BP diastolic 49–79; PULSE 68–82; RESP 15–18; TEMP 35.9–36.7; O2SAT 91–99
[2023-04-18] MEDS: Omeprazole 20 MG CAPSULE.DR PO (05:37)
[2023-04-18] MEDS: Heparin Sodium,Porcine 5,000 UNIT/ML VIAL 5000 UNIT SUBCUT ×3 (05:37→20:27)
[2023-04-18 07:48] LABS: Glucose, Whole Blood 261 mg/dL (60-115)
[2023-04-18] MEDS: Insulin Lispro 100 UNIT/ML 3 ML VIAL SUBCUT ×4 (08:05→20:26)
[2023-04-18] MEDS: Gabapentin 300 MG CAPSULE PO ×3 (08:05→20:27)
[2023-04-18] MEDS: Propylene Glycol/PEG 400 Gel Eye Drops 10ML 2 DROP EYE-BOTH ×3 (08:05→20:35)
[2023-04-18] MEDS: Isosorbide Mononitrate 60 MG TAB.ER.24H PO (08:06)
[2023-04-18] MEDS: Atorvastatin Calcium 80 MG TABLET PO (08:06)
[2023-04-18] MEDS: carvediloL 6.25 MG TABLET PO ×2 (08:06→20:27)
[2023-04-18] MEDS: Acetaminophen 325 MG TABLET 975 MG PO ×3 (08:06→20:27)
[2023-04-18] MEDS: 0.9 % Sodium Chloride Flush 3 ML SYRINGE IVFLUSH ×3 (08:06→20:29)
[2023-04-18] MEDS: amLODIPine Besylate 2.5 MG TABLET PO (08:19)
[2023-04-18] MEDS: Morphine Sulfate 4 MG/ML CARTRIDGE IVPUSH ×2 (08:19→14:28)
--- NOTE | 2023-04-18 09:38 | PM.PNGS ---
Subjective Subjective Date of Service: 04/18/23 Interval history: Patient reports passing flatus, no bowel movement noted. Does feel improved today but mainly complains of back pain. Physical Exam Vital Signs: Vital Signs: Last Vital Signs Temp 96.8 F 04/18/23 07:27 Pulse 79 04/18/23 09:32 Resp 18 04/18/23 09:32 BP 132/60 04/18/23 09:32 Pulse Ox 95 04/18/23 09:32 O2 Del Method Room Air 04/18/23 09:32 O2 Flow Rate 2 04/18/23 07:27 Oxygen Flow Rate 2 04/15/23 14:00 BMI result Body Mass Index 41.2 Const: Other: No acute distress, well nourished, oriented x3 Resp: Other: Breathing comfortably, no respiratory distress GI: Other: Abdominal incision is clean, dry, and intact without redness or discharge. Steri-Strips intact. No evidence of hernia recurrence Skin: Other: Warm and dry Objective Data Active Medications Acetaminophen (Acetaminophen 325 Mg Tablet) 975 mg PO TID [facility] Last Admin: 04/18/23 08:06 Dose: 975 mg Documented By: ALBERTO Al Hydroxide/Mg Hydroxide (Magnesium Hydrox/Alum Hydrox 30 Ml Oral.Susp) 30 ml PO Q4H PRN PRN Reason: Heartburn/Nausea Amlodipine Besylate (Amlodipine Besylate 2.5 Mg Tablet) 2.5 mg PO DAILY [facility]; Protocol Last Admin: 04/18/23 08:19 Dose: 2.5 mg Documented By: ALBERTO Aspirin (Aspirin Enteric Coated 81 Mg Tablet.) 81 mg PO DAILY [facility] Last Admin: 04/13/23 08:41 Dose: 81 mg Documented By: SUSY Atorvastatin Calcium (Atorvastatin Calcium 80 Mg Tablet) 80 mg PO DAILY [facility] Last Admin: 04/18/23 08:06 Dose: 80 mg Documented By: ALBERTO Carvedilol (Carvedilol 6.25 Mg Tablet) 6.25 mg PO BID [facility]; Protocol Last Admin: 04/18/23 08:06 Dose: 6.25 mg Documented By: ALBERTO Dextrose (Dextrose 50 % 25 Gm/50 Ml Syringe) 25 gm IVPUSH Q15M PRN; Protocol PRN Reason: per Hypoglycemia Standing Ord. Gabapentin (Gabapentin 300 Mg Capsule) 300 mg PO TID [facility] Last Admin: 04/18/23 08:05 Dose: 300 mg Documented By: ALBERTO Glucose (Glucose Gel 15 Gm Gel..Gram.) 15 gm PO Q15M PRN; Protocol PRN Reason: per Hypoglycemia Standing Ord. Heparin Sodium (Porcine) (Heparin Sodium,Porcine 5,000 Unit/Ml Vial) 5,000 unit SUBCUT Q8H [facility] Last Admin: 04/18/23 05:37 Dose: 5,000 unit Documented By: KENNETH Ceftriaxone Sodium 1 gm/ (Sodium Chloride) 50 mls @ 100 mls/hr IV Q24H [facility] Last Infusion: 04/17/23 18:31 Dose: Infused Documented By: VICENTE Insulin Human Lispro (Insulin Lispro 100 Unit/Ml 3 Ml Vial) 0 unit SUBCUT QIDACHS [facility]; Protocol Last Admin: 04/18/23 08:05 Dose: 6 unit Documented By: ALBERTO Isosorbide Mononitrate (Isosorbide Mononitrate 60 Mg Tab.Er.24h) 60 mg PO DAILY [facility]; Protocol Last Admin: 04/18/23 08:06 Dose: 60 mg Documented By: ALBERTO Lorazepam (Lorazepam 1 Mg Tablet) 1 mg PO TID PRN PRN Reason: Anxiety Last Admin: 04/17/23 15:41 Dose: 1 mg Documented By: VICENTE Magnesium Hydroxide (Milk Of Magnesia 30 Ml Oral.Susp) 30 ml PO DAILY PRN PRN Reason: Constipation Last Admin: 04/17/23 08:39 Dose: 30 ml Documented By: COTRENATA Melatonin (Melatonin 3 Mg Tablet) 6 mg PO BEDTIME PRN PRN Reason: Insomnia Methenamine Hippurate (Methenamine Hippurate 1 Gm Tablet) 1 gm PO DAILY@1200 [facility] Last Admin: 04/17/23 11:50 Dose: 1 gm Documented By: COTRENATA Morphine Sulfate (Morphine Sulfate 4 Mg/Ml Cartridge) 4 mg IVPUSH Q3H PRN; Protocol PRN Reason: Pain, Severe (Pain Scale 7-10) Last Admin: 04/18/23 08:19 Dose: 4 mg Documented By: ALBERTO Nitroglycerin (Nitroglycerin 0.4 Mg Tab.Subl) 0.4 mg SUBLINGUAL Q5M PRN PRN Reason: chest pain Omeprazole (Omeprazole 20 Mg Capsule.) 20 mg PO DAILY@0630 [facility] Last Admin: 04/18/23 05:37 Dose: 20 mg Documented By: KENNETH Ondansetron HCl (Ondansetron Hcl 4 Mg/2 Ml Vial) 4 mg IVPUSH Q8H PRN PRN Reason: Nausea and Vomiting Last Admin: 04/14/23 18:33 Dose: 4 mg Documented By: BELA Polyethyl Glycol/Propylene Glycol (Propylene Glycol/Peg 400 Gel Eye Drops 10ml) 2 drop EYE-BOTH TID [facility] Last Admin: 04/18/23 08:05 Dose: 2 drop Documented By: ALBERTO Sodium Chloride (0.9 % Sodium Chloride Flush 3 Ml Syringe) 3 ml IVFLUSH QSHIFT [facility] Last Admin: 04/18/23 08:06 Dose: 3 ml Documented By: ALBERTO Sodium Zirconium Cyclosilicate (Sodium Zirconium Cyclosilicate 10 Gm Powd.Pack) 10 gm PO MoWeFr@0900 [facility] Last Admin: 04/16/23 09:18 Dose: 10 gm Documented By: DARINAC Labs 04/14/23 06:46 04/16/23 06:29 Labs: Laboratory Results - last 24 hr 04/17/23 04/17/23 04/17/23 11:01 16:17 20:15 POC Glucose 221 H 211 H 213 H 04/18/23 07:31 POC Glucose 261 H Procedures Date of Service Date of Service: 04/18/23 Progress Note: A&P Assessment and plan (1) SBO (small bowel obstruction): Status: Acute (2) Incarcerated ventral hernia: Status: Acute Plan POD #5 following repair of incisional hernia with mesh. Patient is feeling improved and passing some flatus. No bowel movement yet. Wounds are clean and intact without evidence of infection or hernia recurrence. Time Spent With Patient Time: Total time managing care of this patient today ____ minutes. Quality Stroke Does the patient have a stroke diagnosis?: No VTE Prior VTE?: No VTE Risk Level:: Medical - moderate - high VTE Device Contraindication: Treatment Not Indicated VTE Drug Contraindication: N/A - Med Ordered
[2023-04-18 11:11] LABS: Glucose, Whole Blood 276 mg/dL (60-115)
[2023-04-18] MEDS: Methenamine Hippurate 1 GM TABLET PO (11:54)
[2023-04-18] MEDS: LORazepam 1 MG TABLET PO (14:28)
--- NOTE | 2023-04-18 14:43 | P.PNIM_ITS ---
Subjective Subjective Date of Service: 04/18/23 Interval History: htn, atelactasis Review of Systems does not have chest pain or sob or cough no fevers passing gases but no bm's Physical Exam 2 Vital Signs: Vital Signs: Last Vital Signs Temp 96.7 F L 04/18/23 12:00 Pulse 72 04/18/23 12:00 Resp 16 04/18/23 12:00 BP 130/59 L 04/18/23 12:00 Pulse Ox 91 L 04/18/23 12:00 O2 Del Method Oxymask 04/18/23 12:00 O2 Flow Rate 2 04/18/23 12:00 Oxygen Flow Rate 2 04/15/23 14:00 BMI result Body Mass Index 41.2 Appearance: Alert.? Oriented X3.? cvs: rrr, [id number] , no murmur res: clear to auscultation ,no rhonchii or wheezing abd: no rebound or guarding , soarness in abd incision area improving, bs present. ext pulses present , no cyanosis . neuro: axo3 , nonfocal. Objective Data Active Medications Acetaminophen (Acetaminophen 325 Mg Tablet) 975 mg PO TID [facility] Last Admin: 04/18/23 14:19 Dose: 975 mg Documented By: ALBERTO Al Hydroxide/Mg Hydroxide (Magnesium Hydrox/Alum Hydrox 30 Ml Oral.Susp) 30 ml PO Q4H PRN PRN Reason: Heartburn/Nausea Amlodipine Besylate (Amlodipine Besylate 2.5 Mg Tablet) 2.5 mg PO DAILY [facility]; Protocol Last Admin: 04/18/23 08:19 Dose: 2.5 mg Documented By: ALBERTO Aspirin (Aspirin Enteric Coated 81 Mg Tablet.Dr) 81 mg PO DAILY [facility] Last Admin: 04/13/23 08:41 Dose: 81 mg Documented By: SUSY Atorvastatin Calcium (Atorvastatin Calcium 80 Mg Tablet) 80 mg PO DAILY [facility] Last Admin: 04/18/23 08:06 Dose: 80 mg Documented By: ALBERTO Carvedilol (Carvedilol 6.25 Mg Tablet) 6.25 mg PO BID [facility]; Protocol Last Admin: 04/18/23 08:06 Dose: 6.25 mg Documented By: ALBERTO Dextrose (Dextrose 50 % 25 Gm/50 Ml Syringe) 25 gm IVPUSH Q15M PRN; Protocol PRN Reason: per Hypoglycemia Standing Ord. Gabapentin (Gabapentin 300 Mg Capsule) 300 mg PO TID [facility] Last Admin: 04/18/23 14:19 Dose: 300 mg Documented By: ALBERTO Glucose (Glucose Gel 15 Gm Gel..Gram.) 15 gm PO Q15M PRN; Protocol PRN Reason: per Hypoglycemia Standing Ord. Heparin Sodium (Porcine) (Heparin Sodium,Porcine 5,000 Unit/Ml Vial) 5,000 unit SUBCUT Q8H [facility] Last Admin: 04/18/23 14:19 Dose: 5,000 unit Documented By: ALBERTO Ceftriaxone Sodium 1 gm/ (Sodium Chloride) 50 mls @ 100 mls/hr IV Q24H [facility] Last Infusion: 04/17/23 18:31 Dose: Infused Documented By: VICENTE Insulin Human Lispro (Insulin Lispro 100 Unit/Ml 3 Ml Vial) 0 unit SUBCUT QIDACHS [facility]; Protocol Last Admin: 04/18/23 11:54 Dose: 6 unit Documented By: ALBERTO Isosorbide Mononitrate (Isosorbide Mononitrate 60 Mg Tab.Er.24h) 60 mg PO DAILY [facility]; Protocol Last Admin: 04/18/23 08:06 Dose: 60 mg Documented By: ALBERTO Lorazepam (Lorazepam 1 Mg Tablet) 1 mg PO TID PRN PRN Reason: Anxiety Last Admin: 04/18/23 14:28 Dose: 1 mg Documented By: ALBERTO Magnesium Hydroxide (Milk Of Magnesia 30 Ml Oral.Susp) 30 ml PO DAILY PRN PRN Reason: Constipation Last Admin: 04/17/23 08:39 Dose: 30 ml Documented By: COTEMA Melatonin (Melatonin 3 Mg Tablet) 6 mg PO BEDTIME PRN PRN Reason: Insomnia Methenamine Hippurate (Methenamine Hippurate 1 Gm Tablet) 1 gm PO DAILY@1200 [facility] Last Admin: 04/18/23 11:54 Dose: 1 gm Documented By: ALBERTO Morphine Sulfate (Morphine Sulfate 4 Mg/Ml Cartridge) 4 mg IVPUSH Q3H PRN; Protocol PRN Reason: Pain, Severe (Pain Scale 7-10) Last Admin: 04/18/23 14:28 Dose: 4 mg Documented By: ALBERTO Nitroglycerin (Nitroglycerin 0.4 Mg Tab.Subl) 0.4 mg SUBLINGUAL Q5M PRN PRN Reason: chest pain Omeprazole (Omeprazole 20 Mg Capsule.Dr) 20 mg PO DAILY@0630 [facility] Last Admin: 04/18/23 05:37 Dose: 20 mg Documented By: KENNETH Ondansetron HCl (Ondansetron Hcl 4 Mg/2 Ml Vial) 4 mg IVPUSH Q8H PRN PRN Reason: Nausea and Vomiting Last Admin: 04/14/23 18:33 Dose: 4 mg Documented By: BELA Polyethyl Glycol/Propylene Glycol (Propylene Glycol/Peg 400 Gel Eye Drops 10ml) 2 drop EYE-BOTH TID [facility] Last Admin: 04/18/23 14:19 Dose: 2 drop Documented By: ALBERTO Sodium Chloride (0.9 % Sodium Chloride Flush 3 Ml Syringe) 3 ml IVFLUSH QSHIFT [facility] Last Admin: 04/18/23 08:06 Dose: 3 ml Documented By: ALBERTO Sodium Zirconium Cyclosilicate (Sodium Zirconium Cyclosilicate 10 Gm Powd.Pack) 10 gm PO MoWeFr@0900 [facility] Last Admin: 04/16/23 09:18 Dose: 10 gm Documented By: DAIRNAC Labs 04/14/23 06:46 04/16/23 06:29 Labs: Laboratory Results - last 24 hr 04/17/23 04/17/23 04/18/23 16:17 20:15 07:31 POC Glucose 211 H 213 H 261 H 04/18/23 11:07 POC Glucose 276 H Assessment and Plan (1) CKD (chronic kidney disease) stage 4, GFR 15-29 ml/min: Status: Acute (2) Incarcerated ventral hernia: Status: Acute Plan Day6: 72 year old legally blind and obese (BMI 41.2) white female with past medical history of IBS (with constipation), CAD, T2DM (on Insulin), hypertension and s/p left foot amputation here with Abdominal pain with nausea and vomiting - etiology is unclear at this time - CT abdomen and pelvis -abd hernia Continue IV fluid, antiemetics, possible need of NG tube, s/p exploratory laparotomy, reduction of incarcerated hernia, partial amputation of omentum, enterolysis, repair of incisional hernia with Bard mesh. advance diet ,luxative ,incentive sprio surgery following Hyperkalemia improved with loklema Nature BMP Acute renal failure:improving near baseline with will give some IV fluids and now on clear liquids Leukocytosis with possible ?uti ua has bacteruria/pyuria,urine cultures pendin patient denies any urinary c/o. urine culture -citrobacter freundi start iv ceftriaxone day 3,pending urine culture Type 2 diabetes mellitus:controlled hold Lantus tonight and restart tomorrow Hypertension: flactauting - BP control is not optimal at this time switched metoprolol to coreg,continue imdur,if need may add small dose amlodipine morbid obesity: encouraged to lose weight and cut down calories. mild hypoxia sec multifactorial -atelactsis /deconditioned /body habitus incentive jonna,chest physio,neds ,slowly taper oxygen DVT: SC Heparin ongoing hospitlisation need:abd hernia -s/p abd hernia surgery-passing gases no bm's yet, flactuating bp -need edgardo medication adjustement and moniter renal function and electrolytes due recent hyperkalemia,hypoxia -need to be monitered closely. Quality Stroke Does the patient have a stroke diagnosis?: No VTE Prior VTE?: No VTE Risk Level:: Medical - moderate - high VTE Device Contraindication: Treatment Not Indicated VTE Drug Contraindication: N/A - Med Ordered
[2023-04-18] MEDS: Albuterol/Iprat 2.5/0.5MG 3 ML AMPUL.NEB INHALE ×2 (15:40→19:40)
[2023-04-18 16:23] LABS: Glucose, Whole Blood 263 mg/dL (60-115)
[2023-04-18] MEDS: cefTRIAXone sodium 1 GM in 0.9 % Sodium Chloride 50 ML IV (17:51)
[2023-04-18 20:09] LABS: Glucose, Whole Blood 253 mg/dL (60-115)
[2023-04-19] VITALS (12 sets, daily range): BP systolic 131–188; BP diastolic 58–79; PULSE 68–82; RESP 14–20; TEMP 36–37.3; O2SAT 87–99
[2023-04-19] MEDS: Heparin Sodium,Porcine 5,000 UNIT/ML VIAL 5000 UNIT SUBCUT ×3 (05:51→20:13)
[2023-04-19] MEDS: Omeprazole 20 MG CAPSULE.DR PO (05:51)
[2023-04-19] MEDS: Albuterol/Iprat 2.5/0.5MG 3 ML AMPUL.NEB INHALE ×4 (07:41→19:53)
[2023-04-19 07:46] LABS: Glucose, Whole Blood 232 mg/dL (60-115)
[2023-04-19] MEDS: Propylene Glycol/PEG 400 Gel Eye Drops 10ML 2 DROP EYE-BOTH ×3 (07:56→20:25)
[2023-04-19] MEDS: Docusate Sodium 100 MG CAPSULE PO ×2 (07:58→20:11)
[2023-04-19] MEDS: Sodium Zirconium Cyclosilicate 10 GM POWD.PACK PO (07:58)
[2023-04-19] MEDS: Atorvastatin Calcium 80 MG TABLET PO (07:58)
[2023-04-19] MEDS: Gabapentin 300 MG CAPSULE PO ×3 (07:59→20:11)
[2023-04-19] MEDS: carvediloL 6.25 MG TABLET PO ×2 (07:59→20:11)
[2023-04-19] MEDS: Acetaminophen 325 MG TABLET 975 MG PO ×3 (07:59→20:11)
[2023-04-19] MEDS: amLODIPine Besylate 2.5 MG TABLET PO (07:59)
[2023-04-19] MEDS: Insulin Lispro 100 UNIT/ML 3 ML VIAL SUBCUT ×5 (08:00→20:12)
[2023-04-19] MEDS: 0.9 % Sodium Chloride Flush 3 ML SYRINGE IVFLUSH ×3 (08:00→20:13)
[2023-04-19] MEDS: Isosorbide Mononitrate 60 MG TAB.ER.24H PO (08:00)
--- NOTE | 2023-04-19 08:45 | PM.PNGS ---
Subjective Subjective Date of Service: 04/19/23 Interval history: Feeling overall much better. Has incisional pain but improving. Tolerating solid diet. Passing flatus but no BM. Physical Exam Vital Signs: Vital Signs: Last Vital Signs Temp 97 F 04/19/23 07:27 Pulse 68 04/19/23 07:44 Resp 20 04/19/23 07:44 BP 159/66 H 04/19/23 07:27 Pulse Ox 97 04/19/23 07:27 O2 Del Method Oxymask 04/19/23 07:27 O2 Flow Rate 2 04/19/23 07:27 Oxygen Flow Rate 2 04/15/23 14:00 BMI result Body Mass Index 41.2 Const: General: comfortable, no acute distress and alert Orientation/consciousness: patient oriented x3 Resp: Effort & Inspection: normal respiratory effort GI: Other: corpulent abdomen Inspection: No distended and Yes incision (clean) Palpation (GI): Soft to palpation, Tenderness to palpation present (GI) (mild incisional), no guarding and not rigid Percussion: Yes normal to percussion Skin: General skin exam: no rashes or lesions noted Neuro: General: patient oriented x3 Objective Data Active Medications Acetaminophen (Acetaminophen 325 Mg Tablet) 975 mg PO TID [facility] Last Admin: 04/19/23 07:59 Dose: 975 mg Documented By: TRINA Al Hydroxide/Mg Hydroxide (Magnesium Hydrox/Alum Hydrox 30 Ml Oral.Susp) 30 ml PO Q4H PRN PRN Reason: Heartburn/Nausea Albuterol/Ipratropium (Albuterol/Iprat 2.5/0.5mg 3 Ml Ampul.Neb) 3 ml INHALE RQ4H WHILE AWAKE [facility] Last Admin: 04/19/23 07:41 Dose: 3 ml Documented By: CHRIS Amlodipine Besylate (Amlodipine Besylate 2.5 Mg Tablet) 2.5 mg PO DAILY [facility]; Protocol Last Admin: 04/19/23 07:59 Dose: 2.5 mg Documented By: TRINA Aspirin (Aspirin Enteric Coated 81 Mg Tablet.) 81 mg PO DAILY [facility] Last Admin: 04/13/23 08:41 Dose: 81 mg Documented By: SUSY Atorvastatin Calcium (Atorvastatin Calcium 80 Mg Tablet) 80 mg PO DAILY [facility] Last Admin: 04/19/23 07:58 Dose: 80 mg Documented By: TRINA Carvedilol (Carvedilol 6.25 Mg Tablet) 6.25 mg PO BID [facility]; Protocol Last Admin: 04/19/23 07:59 Dose: 6.25 mg Documented By: TRINA Dextrose (Dextrose 50 % 25 Gm/50 Ml Syringe) 25 gm IVPUSH Q15M PRN; Protocol PRN Reason: per Hypoglycemia Standing Ord. Docusate Sodium (Docusate Sodium 100 Mg Capsule) 100 mg PO BID [facility] Last Admin: 04/19/23 07:58 Dose: 100 mg Documented By: TRINA Gabapentin (Gabapentin 300 Mg Capsule) 300 mg PO TID [facility] Last Admin: 04/19/23 07:59 Dose: 300 mg Documented By: TRINA Glucose (Glucose Gel 15 Gm Gel..Gram.) 15 gm PO Q15M PRN; Protocol PRN Reason: per Hypoglycemia Standing Ord. Heparin Sodium (Porcine) (Heparin Sodium,Porcine 5,000 Unit/Ml Vial) 5,000 unit SUBCUT Q8H [facility] Last Admin: 04/19/23 05:51 Dose: 5,000 unit Documented By: HANNAH Ceftriaxone Sodium 1 gm/ (Sodium Chloride) 50 mls @ 100 mls/hr IV Q24H [facility] Last Infusion: 04/18/23 18:29 Dose: Infused Documented By: MEREDITH Insulin Human Lispro (Insulin Lispro 100 Unit/Ml 3 Ml Vial) 0 unit SUBCUT QIDACHS [facility]; Protocol Last Admin: 04/19/23 08:00 Dose: 4 unit Documented By: TRINA Isosorbide Mononitrate (Isosorbide Mononitrate 60 Mg Tab.Er.24h) 60 mg PO DAILY [facility]; Protocol Last Admin: 04/19/23 08:00 Dose: 60 mg Documented By: TRINA Lorazepam (Lorazepam 1 Mg Tablet) 1 mg PO TID PRN PRN Reason: Anxiety Last Admin: 04/18/23 14:28 Dose: 1 mg Documented By: ALBERTO Magnesium Hydroxide (Milk Of Magnesia 30 Ml Oral.Susp) 30 ml PO DAILY [facility] Melatonin (Melatonin 3 Mg Tablet) 6 mg PO BEDTIME PRN PRN Reason: Insomnia Methenamine Hippurate (Methenamine Hippurate 1 Gm Tablet) 1 gm PO DAILY@1200 [facility] Last Admin: 04/18/23 11:54 Dose: 1 gm Documented By: ALBERTO Nitroglycerin (Nitroglycerin 0.4 Mg Tab.Subl) 0.4 mg SUBLINGUAL Q5M PRN PRN Reason: chest pain Omeprazole (Omeprazole 20 Mg Capsule.) 20 mg PO DAILY@0630 [facility] Last Admin: 04/19/23 05:51 Dose: 20 mg Documented By: HANNAH Ondansetron HCl (Ondansetron Hcl 4 Mg/2 Ml Vial) 4 mg IVPUSH Q8H PRN PRN Reason: Nausea and Vomiting Last Admin: 04/14/23 18:33 Dose: 4 mg Documented By: BELA Polyethyl Glycol/Propylene Glycol (Propylene Glycol/Peg 400 Gel Eye Drops 10ml) 2 drop EYE-BOTH TID [facility] Last Admin: 04/19/23 07:56 Dose: 2 drop Documented By: TRINA Polyethylene Glycol (Polyethylene Glycol 3350 17 Gm Powd.Pack) 17 gm PO DAILY [facility] Sodium Chloride (0.9 % Sodium Chloride Flush 3 Ml Syringe) 3 ml IVFLUSH QSHIFT [facility] Last Admin: 04/19/23 08:00 Dose: 3 ml Documented By: TRINA Sodium Zirconium Cyclosilicate (Sodium Zirconium Cyclosilicate 10 Gm Powd.Pack) 10 gm PO MoWeFr@0900 [facility] Last Admin: 04/19/23 07:58 Dose: 10 gm Documented By: TRINA Labs 04/14/23 06:46 04/16/23 06:29 Labs: Laboratory Results - last 24 hr 04/18/23 04/18/23 04/18/23 11:07 16:15 19:54 POC Glucose 276 H 263 H 253 H 04/19/23 07:24 POC Glucose 232 H Procedures Date of Service Date of Service: 04/19/23 Progress Note: A&P Assessment and plan (1) SBO (small bowel obstruction): Status: Acute (2) Incarcerated ventral hernia: Status: Acute Plan Doing well from surgical standpoint, tolerating diet with evidence of GI function. Abd benign- soft, nondistended with clean incision. Continue bowel regimen of colace, miralax and milk of magnesia. Cont OOB/IS use. PT rec STR. Surgically stable for transfer when bed available. Recommended continued use of abd binder. Time Spent With Patient Time: Total time managing care of this patient today ____ minutes. Quality Stroke Does the patient have a stroke diagnosis?: No VTE Prior VTE?: No VTE Risk Level:: Medical - moderate - high VTE Device Contraindication: Treatment Not Indicated VTE Drug Contraindication: N/A - Med Ordered
--- NOTE | 2023-04-19 10:12 | MHC.CM.PN ---
EMR reviewed. Per MD rounds not medically cleared for dc at this time. Has not had a BM per RN. [facility] has submitted for auth, but will not accept until patient has a BM. CM will continue to follow.
[2023-04-19] MEDS: Milk of Magnesia 30 ML ORAL.SUSP PO (10:34)
[2023-04-19] MEDS: polyethylene glycoL 3350 17 GM POWD.PACK PO ×2 (10:34→18:17)
--- NOTE | 2023-04-19 10:56 | HO.PM.IMPN ---
Subjective Subjective Date of Service: 04/19/23 Interval History: s/p hernia repair Review of Systems abd pain improving passing gases no bm yet,tolerating diet Physical Exam Vital Signs: Vital Signs: Last Vital Signs Temp 97 F 04/19/23 07:27 Pulse 68 04/19/23 10:20 Resp 20 04/19/23 07:44 BP 159/66 H 04/19/23 07:27 Pulse Ox 97 04/19/23 07:27 O2 Del Method Oxymask 04/19/23 07:27 O2 Flow Rate 2 04/19/23 07:27 Oxygen Flow Rate 2 04/15/23 14:00 BMI result Body Mass Index 41.2 Appearance: Alert.? Oriented X3.? cvs: rrr, [id number] , no murmur res: clear to auscultation ,no rhonchii or wheezing abd: no rebound or guarding , soarness in abd incision area improving, bs present. ext pulses present , no cyanosis . neuro: axo3 , nonfocal. Const: General: comfortable, no acute distress and alert Orientation/consciousness: patient oriented x3 Resp: Effort & Inspection: normal respiratory effort GI: Other: corpulent abdomen Inspection: No distended and Yes incision (clean) Palpation (GI): Soft to palpation, Tenderness to palpation present (GI) (mild incisional), no guarding and not rigid Percussion: Yes normal to percussion Skin: General skin exam: no rashes or lesions noted Neuro: General: patient oriented x3 Objective Data Active Medications Acetaminophen (Acetaminophen 325 Mg Tablet) 975 mg PO TID [facility] Last Admin: 04/19/23 07:59 Dose: 975 mg Documented By: TRINA Al Hydroxide/Mg Hydroxide (Magnesium Hydrox/Alum Hydrox 30 Ml Oral.Susp) 30 ml PO Q4H PRN PRN Reason: Heartburn/Nausea Albuterol/Ipratropium (Albuterol/Iprat 2.5/0.5mg 3 Ml Ampul.Neb) 3 ml INHALE RQ4H WHILE AWAKE [facility] Last Admin: 04/19/23 07:41 Dose: 3 ml Documented By: CHRIS Amlodipine Besylate (Amlodipine Besylate 2.5 Mg Tablet) 2.5 mg PO DAILY [facility]; Protocol Last Admin: 04/19/23 07:59 Dose: 2.5 mg Documented By: TRINA Aspirin (Aspirin Enteric Coated 81 Mg Tablet.) 81 mg PO DAILY [facility] Last Admin: 04/13/23 08:41 Dose: 81 mg Documented By: SUSY Atorvastatin Calcium (Atorvastatin Calcium 80 Mg Tablet) 80 mg PO DAILY [facility] Last Admin: 04/19/23 07:58 Dose: 80 mg Documented By: TRINA Carvedilol (Carvedilol 6.25 Mg Tablet) 6.25 mg PO BID [facility]; Protocol Last Admin: 04/19/23 07:59 Dose: 6.25 mg Documented By: TRINA Dextrose (Dextrose 50 % 25 Gm/50 Ml Syringe) 25 gm IVPUSH Q15M PRN; Protocol PRN Reason: per Hypoglycemia Standing Ord. Docusate Sodium (Docusate Sodium 100 Mg Capsule) 100 mg PO BID [facility] Last Admin: 04/19/23 07:58 Dose: 100 mg Documented By: TRINA Gabapentin (Gabapentin 300 Mg Capsule) 300 mg PO TID [facility] Last Admin: 04/19/23 07:59 Dose: 300 mg Documented By: TRINA Glucose (Glucose Gel 15 Gm Gel..Gram.) 15 gm PO Q15M PRN; Protocol PRN Reason: per Hypoglycemia Standing Ord. Heparin Sodium (Porcine) (Heparin Sodium,Porcine 5,000 Unit/Ml Vial) 5,000 unit SUBCUT Q8H [facility] Last Admin: 04/19/23 05:51 Dose: 5,000 unit Documented By: HANNAH Ceftriaxone Sodium 1 gm/ (Sodium Chloride) 50 mls @ 100 mls/hr IV Q24H [facility] Last Infusion: 04/18/23 18:29 Dose: Infused Documented By: MEREDITH Insulin Human Lispro (Insulin Lispro 100 Unit/Ml 3 Ml Vial) 0 unit SUBCUT QIDACHS [facility]; Protocol Last Admin: 04/19/23 08:00 Dose: 4 unit Documented By: TRINA Isosorbide Mononitrate (Isosorbide Mononitrate 60 Mg Tab.Er.24h) 60 mg PO DAILY [facility]; Protocol Last Admin: 04/19/23 08:00 Dose: 60 mg Documented By: TRINA Lorazepam (Lorazepam 1 Mg Tablet) 1 mg PO TID PRN PRN Reason: Anxiety Last Admin: 04/18/23 14:28 Dose: 1 mg Documented By: ALBERTO Magnesium Hydroxide (Milk Of Magnesia 30 Ml Oral.Susp) 30 ml PO DAILY [facility] Last Admin: 04/19/23 10:34 Dose: 30 ml Documented By: TRINA Melatonin (Melatonin 3 Mg Tablet) 6 mg PO BEDTIME PRN PRN Reason: Insomnia Methenamine Hippurate (Methenamine Hippurate 1 Gm Tablet) 1 gm PO DAILY@1200 [facility] Last Admin: 04/18/23 11:54 Dose: 1 gm Documented By: ALBERTO Nitroglycerin (Nitroglycerin 0.4 Mg Tab.Subl) 0.4 mg SUBLINGUAL Q5M PRN PRN Reason: chest pain Omeprazole (Omeprazole 20 Mg Capsule.Dr) 20 mg PO DAILY@0630 [facility] Last Admin: 04/19/23 05:51 Dose: 20 mg Documented By: HANNAH Ondansetron HCl (Ondansetron Hcl 4 Mg/2 Ml Vial) 4 mg IVPUSH Q8H PRN PRN Reason: Nausea and Vomiting Last Admin: 04/14/23 18:33 Dose: 4 mg Documented By: BELA Polyethyl Glycol/Propylene Glycol (Propylene Glycol/Peg 400 Gel Eye Drops 10ml) 2 drop EYE-BOTH TID [facility] Last Admin: 04/19/23 07:56 Dose: 2 drop Documented By: TRINA Polyethylene Glycol (Polyethylene Glycol 3350 17 Gm Powd.Pack) 17 gm PO DAILY [facility] Last Admin: 04/19/23 10:34 Dose: 17 gm Documented By: TRINA Sodium Chloride (0.9 % Sodium Chloride Flush 3 Ml Syringe) 3 ml IVFLUSH QSHIFT [facility] Last Admin: 04/19/23 08:00 Dose: 3 ml Documented By: TRINA Sodium Zirconium Cyclosilicate (Sodium Zirconium Cyclosilicate 10 Gm Powd.Pack) 10 gm PO MoWeFr@0900 [facility] Last Admin: 04/19/23 07:58 Dose: 10 gm Documented By: TRINA Labs 04/14/23 06:46 04/16/23 06:29 Labs: Laboratory Results - last 24 hr 04/18/23 04/18/23 04/18/23 11:07 16:15 19:54 POC Glucose 276 H 263 H 253 H 04/19/23 07:24 POC Glucose 232 H Assessment and Plan (1) CKD (chronic kidney disease) stage 4, GFR 15-29 ml/min: Status: Acute (2) Incarcerated ventral hernia: Status: Acute Plan Day 8: 72 year old legally blind and obese (BMI 41.2) white female with past medical history of IBS (with constipation), CAD, T2DM (on Insulin), hypertension and s/p left foot amputation here with Abdominal pain with nausea and vomiting - etiology is unclear at this time - CT abdomen and pelvis -abd hernia Continue IV fluid, antiemetics, possible need of NG tube, s/p exploratory laparotomy, reduction of incarcerated hernia, partial amputation of omentum, enterolysis, repair of incisional hernia with Bard mesh. advance diet ,luxative ,incentive sprio surgery following Hyperkalemia improved with loklema Nature BMP Acute renal failure:improving near baseline with will give some IV fluids and now on clear liquids Leukocytosis with possible ?uti ua has bacteruria/pyuria,urine cultures pendin patient denies any urinary c/o. urine culture -citrobacter freundi start iv ceftriaxone day 3,pending urine culture Type 2 diabetes mellitus:controlled hold Lantus tonight and restart tomorrow Hypertension: flactauting - BP control is not optimal at this time switched metoprolol to coreg,continue imdur,if need may add small dose amlodipine morbid obesity: encouraged to lose weight and cut down calories. mild hypoxia sec multifactorial -atelactsis /deconditioned /body habitus incentive jonna,chest physio,neds ,slowly taper oxygen DVT: SC Heparin ongoing hospitlisation need:abd hernia -s/p abd hernia surgery-passing gases no bm's yet, flactuating bp -need edgardo medication adjustement and moniter renal function and electrolytes due recent hyperkalemia,hypoxia -need to be monitered closely. Quality Stroke Does the patient have a stroke diagnosis?: No VTE Prior VTE?: No VTE Risk Level:: Medical - moderate - high VTE Device Contraindication: Treatment Not Indicated VTE Drug Contraindication: N/A - Med Ordered
[2023-04-19 11:34] LABS: Glucose, Whole Blood 319 mg/dL (60-115)
[2023-04-19] MEDS: Methenamine Hippurate 1 GM TABLET PO (11:57)
--- NOTE | 2023-04-19 14:22 | MHC.CLN ---
F/U DIET=DIABETIC 2000 KCALS. PATIENT WITH STAGE II WOUND TO COCCYX. RECEIVES ENSURE MAX PROTEIN BID TO PROMOTE WOUND HEALING. PROVIDES 300 KCALS, 60 G PROTEIN. INTAKE AT MEALS 50-100%. CONTINUE CURRENT DIET AND SUPPLEMENT. FOLLOW FOR INTAKE AND SKIN INTEGRITY.
[2023-04-19] MEDS: Morphine Sulfate Immed Release 15 MG TABLET PO (15:38)
[2023-04-19 16:23] LABS: Glucose, Whole Blood 359 mg/dL (60-115)
[2023-04-19] MEDS: cefTRIAXone sodium 1 GM in 0.9 % Sodium Chloride 50 ML IV (18:17)
[2023-04-19 19:58] LABS: Glucose, Whole Blood 333 mg/dL (60-115)
[2023-04-19] MEDS: Insulin Glargine,Hum.rec.anlog 100 UNIT/ML 10 ML VIAL 30 UNIT SUBCUT (20:12)
[2023-04-20 03:10] VITALS: BP 141/63; PULSE 71; RESP 16; TEMP 36.7; O2SAT 95
[2023-04-20] MEDS: Heparin Sodium,Porcine 5,000 UNIT/ML VIAL 5000 UNIT SUBCUT ×3 (05:34→20:55)
[2023-04-20] MEDS: Omeprazole 20 MG CAPSULE.DR PO (05:34)
[2023-04-20 07:26] VITALS: BP 160/67; PULSE 75; RESP 18; TEMP 36.6; O2SAT 94
[2023-04-20] MEDS: Albuterol/Iprat 2.5/0.5MG 3 ML AMPUL.NEB INHALE (07:26)
[2023-04-20 07:28] VITALS: PULSE 75; RESP 20; O2SAT 93
[2023-04-20 07:41] LABS: Glucose, Whole Blood 274 mg/dL (60-115)
[2023-04-20] MEDS: Insulin Lispro 100 UNIT/ML 3 ML VIAL SUBCUT ×4 (07:52→20:56)
[2023-04-20] MEDS: Acetaminophen 325 MG TABLET 975 MG PO ×3 (07:53→20:54)
[2023-04-20] MEDS: Aspirin Enteric Coated 81 MG TABLET.DR PO (07:53)
[2023-04-20] MEDS: Isosorbide Mononitrate 60 MG TAB.ER.24H PO (07:53)
[2023-04-20] MEDS: carvediloL 6.25 MG TABLET PO ×2 (07:54→20:55)
[2023-04-20] MEDS: Atorvastatin Calcium 80 MG TABLET PO (07:54)
[2023-04-20] MEDS: amLODIPine Besylate 2.5 MG TABLET PO (07:54)
[2023-04-20] MEDS: Gabapentin 300 MG CAPSULE PO ×3 (07:54→20:55)
[2023-04-20] MEDS: Milk of Magnesia 30 ML ORAL.SUSP PO (07:55)
[2023-04-20] MEDS: Docusate Sodium 100 MG CAPSULE PO ×2 (07:55→20:55)
[2023-04-20] MEDS: 0.9 % Sodium Chloride Flush 3 ML SYRINGE IVFLUSH ×3 (07:55→20:56)
[2023-04-20] MEDS: polyethylene glycoL 3350 17 GM POWD.PACK PO (07:55)
[2023-04-20] MEDS: Propylene Glycol/PEG 400 Gel Eye Drops 10ML 2 DROP EYE-BOTH ×3 (08:07→21:09)
--- NOTE | 2023-04-20 09:11 | PM.PNGS ---
Subjective Subjective Date of Service: 04/20/23 Interval history: C/o nausea this morning. Incisional pain remains mild. Did not eat much for breakfast. Passing flatus but still no BM. Reports sometimes she feels nauseous when she gets constipation. Physical Exam Vital Signs: Vital Signs: Last Vital Signs Temp 98 F 04/20/23 07:26 Pulse 75 04/20/23 07:28 Resp 20 04/20/23 07:28 BP 160/67 H 04/20/23 07:26 Pulse Ox 94 04/20/23 07:26 O2 Del Method Room Air 04/20/23 07:26 O2 Flow Rate 1 04/19/23 15:27 Oxygen Flow Rate 2 04/15/23 14:00 BMI result Body Mass Index 41.2 Const: General: comfortable, no acute distress and alert Orientation/consciousness: patient oriented x3 Resp: Effort & Inspection: normal respiratory effort GI: Other: corpulent abdomen Inspection: No distended and Yes incision (clean) Palpation (GI): Soft to palpation, Tenderness to palpation present (GI) (mild incisional), no guarding and not rigid Skin: General skin exam: no rashes or lesions noted Neuro: General: patient oriented x3 Objective Data Active Medications Acetaminophen (Acetaminophen 325 Mg Tablet) 975 mg PO TID [facility] 234 BEDS AT [facility] Last Admin: 04/20/23 07:53 Dose: 975 mg Documented By: TRINA Al Hydroxide/Mg Hydroxide (Magnesium Hydrox/Alum Hydrox 30 Ml Oral.Susp) 30 ml PO Q4H PRN PRN Reason: Heartburn/Nausea Albuterol/Ipratropium (Albuterol/Iprat 2.5/0.5mg 3 Ml Ampul.Neb) 3 ml INHALE RQ4H WHILE AWAKE [facility]S [facility]CLUDE 234 BEDS AT [facility] Last Admin: 04/20/23 07:26 Dose: 3 ml Documented By: CHRIS Amlodipine Besylate (Amlodipine Besylate 2.5 Mg Tablet) 2.5 mg PO DAILY [facility] 234 [facility]EDS AT [facility]; Protocol Last Admin: 04/20/23 07:54 Dose: 2.5 mg Documented By: TRINA Aspirin (Aspirin Enteric Coated 81 Mg Tablet.) 81 mg PO DAILY [facility] 234 B[facility]S AT [facility] Last Admin: 04/20/23 07:53 Dose: 81 mg Documented By: TRINA Atorvastatin Calcium (Atorvastatin Calcium 80 Mg Tablet) 80 mg PO DAILY [facility]CLUDE 234 BEDS AT [facility] Last Admin: 04/20/23 07:54 Dose: 80 mg Documented By: TRINA Bisacodyl (Bisacodyl 10 Mg Supp.Rect) 10 mg MS ONCE ONE Stop: 04/20/23 09:11 Carvedilol (Carvedilol 6.25 Mg Tablet) 6.25 mg PO BID [facility] 234 BEDS AT [facility]; Protocol Last Admin: 04/20/23 07:54 Dose: 6.25 mg Documented By: TRINA Dextrose (Dextrose 50 % 25 Gm/50 Ml Syringe) 25 gm IVPUSH Q15M PRN; Protocol PRN Reason: per Hypoglycemia Standing Ord. Docusate Sodium (Docusate Sodium 100 Mg Capsule) 100 mg PO BID [facility] 234 [facility]S AT [facility] Last Admin: 04/20/23 07:55 Dose: 100 mg Documented By: TRINA Gabapentin (Gabapentin 300 Mg Capsule) 300 mg PO TID [facility] 234 BEDS AT [facility] Last Admin: 04/20/23 07:54 Dose: 300 mg Documented By: TRINA Glucose (Glucose Gel 15 Gm Gel..Gram.) 15 gm PO Q15M PRN; Protocol PRN Reason: per Hypoglycemia Standing Ord. Heparin Sodium (Porcine) (Heparin Sodium,Porcine 5,000 Unit/Ml Vial) 5,000 unit SUBCUT Q8H [facility]S [facility]CLUDE 234 BEDS AT [facility] Last Admin: 04/20/23 05:34 Dose: 5,000 unit Documented By: MICHAEL Ceftriaxone Sodium 1 gm/ (Sodium Chloride) 50 mls @ 100 mls/hr IV Q24H [facility]S INCLUDE 234 BEDS AT [facility] Last Infusion: 04/19/23 19:31 Dose: Infused Documented By: MICHAEL Insulin Glargine (Insulin Glargine,Hum.Rec.Anlog 100 Unit/Ml 10 Ml Vial) 30 unit SUBCUT BEDTIME COUNTS INCLUDE 234 BEDS AT [facility] Last Admin: 04/19/23 20:12 Dose: 30 unit Documented By: MICHAEL Insulin Human Lispro (Insulin Lispro 100 Unit/Ml 3 Ml Vial) 0 unit SUBCUT QIDACHS [facility]S [facility]CLUDE 234 BEDS AT [facility]; Protocol Last Admin: 04/20/23 07:52 Dose: 6 unit Documented By: TRINA Isosorbide Mononitrate (Isosorbide Mononitrate 60 Mg Tab.Er.24h) 60 mg PO DAILY [facility] 234 [facility]S AT [facility]; Protocol Last Admin: 04/20/23 07:53 Dose: 60 mg Documented By: TRINA Lorazepam (Lorazepam 1 Mg Tablet) 1 mg PO TID PRN PRN Reason: Anxiety Last Admin: 04/18/23 14:28 Dose: 1 mg Documented By: ALBERTO Magnesium Hydroxide (Milk Of Magnesia 30 Ml Oral.Susp) 30 ml PO DAILY [facility]CLUDE 234 BEDS AT [facility] Last Admin: 04/20/23 07:55 Dose: 30 ml Documented By: TRINA Melatonin (Melatonin 3 Mg Tablet) 6 mg PO BEDTIME PRN PRN Reason: Insomnia Methenamine Hippurate (Methenamine Hippurate 1 Gm Tablet) 1 gm PO DAILY@1200 [facility]S INCLUDE 234 BEDS AT [facility] Last Admin: 04/19/23 11:57 Dose: 1 gm Documented By: TRINA Morphine Sulfate (Morphine Sulfate Immed Release 15 Mg Tablet) 15 mg PO Q6H PRN PRN Reason: Pain, Mild (Pain Scale 1-3) Last Admin: 04/19/23 15:38 Dose: 15 mg Documented By: TRINA Nitroglycerin (Nitroglycerin 0.4 Mg Tab.Subl) 0.4 mg SUBLINGUAL Q5M PRN PRN Reason: chest pain Omeprazole (Omeprazole 20 Mg Capsule.Dr) 20 mg PO DAILY@0630 [facility]S INCLUDE 234 BEDS AT [facility] Last Admin: 04/20/23 05:34 Dose: 20 mg Documented By: ODRISClifton Ondansetron HCl (Ondansetron Hcl 4 Mg/2 Ml Vial) 4 mg IVPUSH Q8H PRN PRN Reason: Nausea and Vomiting Last Admin: 04/14/23 18:33 Dose: 4 mg Documented By: BELA Polyethyl Glycol/Propylene Glycol (Propylene Glycol/Peg 400 Gel Eye Drops 10ml) 2 drop EYE-BOTH TID COUNTS INCLUDE 234 BEDS AT [facility] Last Admin: 04/20/23 08:07 Dose: 2 drop Documented By: TRINA Polyethylene Glycol (Polyethylene Glycol 3350 17 Gm Powd.Pack) 17 gm PO DAILY COUNTS INCLUDE 234 BEDS AT [facility] Last Admin: 04/20/23 07:55 Dose: 17 gm Documented By: TRINA Sodium Chloride (0.9 % Sodium Chloride Flush 3 Ml Syringe) 3 ml IVFLUSH QSHIFT COUNTS INCLUDE 234 BEDS AT [facility] Last Admin: 04/20/23 07:55 Dose: 3 ml Documented By: TRINA Sodium Zirconium Cyclosilicate (Sodium Zirconium Cyclosilicate 10 Gm Powd.Pack) 10 gm PO MoWeFr@0900 COUNTS INCLUDE 234 BEDS AT [facility] Last Admin: 04/19/23 07:58 Dose: 10 gm Documented By: TRINA Labs 04/14/23 06:46 04/16/23 06:29 Labs: Laboratory Results - last 24 hr 04/19/23 04/19/23 04/19/23 11:25 16:11 19:46 POC Glucose 319 H 359 H* 333 H 04/20/23 07:29 POC Glucose 274 H Procedures Date of Service Date of Service: 04/20/23 Progress Note: A&P Assessment and plan (1) SBO (small bowel obstruction): Status: Acute (2) Incarcerated ventral hernia: Status: Acute Plan Doing ok post op, passing flatus but no BM. Abd benign- soft, nondistended with clean incision. Cont OOB/IS use. Recommended continued use of abd binder. On bowel regimen of colace, MOM, miralax. Will add suppository. Surgically stable for transfer when has BM. Time Spent With Patient Time: Total time managing care of this patient today ____ minutes. Quality Stroke Does the patient have a stroke diagnosis?: No VTE Prior VTE?: No VTE Risk Level:: Medical - moderate - high VTE Device Contraindication: Treatment Not Indicated VTE Drug Contraindication: N/A - Med Ordered
[2023-04-20] MEDS: bisacodyL 10 MG SUPP.RECT PR (09:48)
[2023-04-20 11:27] LABS: Glucose, Whole Blood 237 mg/dL (60-115)
[2023-04-20] MEDS: ondansetron HCL 4 MG/2 ML VIAL IVPUSH (12:07)
[2023-04-20] MEDS: Morphine Sulfate Immed Release 15 MG TABLET PO ×2 (12:07→18:20)
--- NOTE | 2023-04-20 12:49 | PM.PNNEP ---
Subjective Subjective Date of Service: 04/20/23 Interval history: s/p hernia repair; Events noted. All recent data reviewed Physical Exam Vital Signs: Vital Signs: Last Vital Signs Temp 98 F 04/20/23 07:26 Pulse 75 04/20/23 07:28 Resp 20 04/20/23 07:28 BP 160/67 H 04/20/23 07:26 Pulse Ox 94 04/20/23 07:26 O2 Del Method Room Air 04/20/23 07:26 O2 Flow Rate 1 04/19/23 15:27 Oxygen Flow Rate 2 04/15/23 14:00 BMI result Body Mass Index 41.2 Const: General: comfortable and no acute distress Orientation/consciousness: patient oriented x3 HEENT: Head: Yes normocephalic Mouth: Normal oral and palatal mucosa present Eyes: EOM: EOMs intact bilaterally Neck: Neck: Yes supple Resp: Auscultation: clear to auscultation bilaterally Cardio: Jugular venous distension: no JVD Rate: regular rate GI: Palpation (GI): Soft to palpation : General: Yes no CVA tenderness Back/Spine/Pelvis: Back: no CVA tenderness Skin: General skin exam: no rashes or lesions noted Neuro: General: patient oriented x3 and moves all extremities Extrem: General: Yes no pedal edema Objective Data Labs 04/14/23 06:46 04/16/23 06:29 Labs: Laboratory Results - last 24 hr 04/19/23 04/19/23 04/20/23 16:11 19:46 07:29 POC Glucose 359 H* 333 H 274 H 04/20/23 11:16 POC Glucose 237 H Microbiology Microbiology Results: Microbiology 04/12/23 Unknown Urine clean catch - Urine romero top Urine Culture - Final Citrobacter freundii Procedures Date of Service Date of Service: 04/20/23 Assessment & Plan Assessment and plan (1) CKD (chronic kidney disease) stage 4, GFR 15-29 ml/min: Status: Acute Plan Caty had acute kidney injury on a backdrop of chronic kidney disease stage 4, likely due to tubular injury which has resolved. Her renal functions are back to baseline. There is no reason to suspect any obstructive uropathy, new acute glomerular or interstitial pathology causing IRINA. She is not on any diuretics, nonsteroidal anti-inflammatories, WOOD inhibitor or ARB. We should keep her on low-potassium diet and give her Lokelma as on a needed basis. She needs regular outpatient care with Dr. Bro in 4-6 weeks after D/C as he is her outpatient Pyrometer Temperature Regulator. Progress Note: Quality Stroke Does the patient have a stroke diagnosis?: No
[2023-04-20] MEDS: Methenamine Hippurate 1 GM TABLET PO (13:00)
--- NOTE | 2023-04-20 13:53 | P.PNIM_ITS ---
Subjective Subjective Date of Service: 04/20/23 Interval History: s/p hernia repair Review of Systems abd pain improving passing gases no bm yet,tolerating diet Physical Exam 2 Vital Signs: Vital Signs: Last Vital Signs Temp 98 F 04/20/23 07:26 Pulse 75 04/20/23 07:28 Resp 20 04/20/23 07:28 BP 160/67 H 04/20/23 07:26 Pulse Ox 94 04/20/23 07:26 O2 Del Method Room Air 04/20/23 07:26 O2 Flow Rate 1 04/19/23 15:27 Oxygen Flow Rate 2 04/15/23 14:00 BMI result Body Mass Index 41.2 Appearing in no acute distress lung sounds are clear to auscultation heart regular rate rhythm, clear S1, S2 positive bowel sounds, abdomen is soft, nontender neuro patient is alert x3, no focal deficits Objective Data Active Medications Acetaminophen (Acetaminophen 325 Mg Tablet) 975 mg PO TID [facility] Last Admin: 04/20/23 07:53 Dose: 975 mg Documented By: TRINA Al Hydroxide/Mg Hydroxide (Magnesium Hydrox/Alum Hydrox 30 Ml Oral.Susp) 30 ml PO Q4H PRN PRN Reason: Heartburn/Nausea Albuterol/Ipratropium (Albuterol/Iprat 2.5/0.5mg 3 Ml Ampul.Neb) 3 ml INHALE RQ4H WHILE AWAKE [facility] Last Admin: 04/20/23 11:16 Dose: Not Given Documented By: LEONEL Non-Admin Reason: Nausea Amlodipine Besylate (Amlodipine Besylate 2.5 Mg Tablet) 2.5 mg PO DAILY [facility]; Protocol Last Admin: 04/20/23 07:54 Dose: 2.5 mg Documented By: TRINA Aspirin (Aspirin Enteric Coated 81 Mg Tablet.) 81 mg PO DAILY [facility] Last Admin: 04/20/23 07:53 Dose: 81 mg Documented By: TRINA Atorvastatin Calcium (Atorvastatin Calcium 80 Mg Tablet) 80 mg PO DAILY [facility] Last Admin: 04/20/23 07:54 Dose: 80 mg Documented By: TRINA Carvedilol (Carvedilol 6.25 Mg Tablet) 6.25 mg PO BID [facility]; Protocol Last Admin: 04/20/23 07:54 Dose: 6.25 mg Documented By: TRINA Dextrose (Dextrose 50 % 25 Gm/50 Ml Syringe) 25 gm IVPUSH Q15M PRN; Protocol PRN Reason: per Hypoglycemia Standing Ord. Docusate Sodium (Docusate Sodium 100 Mg Capsule) 100 mg PO BID [facility] Last Admin: 04/20/23 07:55 Dose: 100 mg Documented By: TRINA Gabapentin (Gabapentin 300 Mg Capsule) 300 mg PO TID [facility] Last Admin: 04/20/23 07:54 Dose: 300 mg Documented By: TRINA Glucose (Glucose Gel 15 Gm Gel..Gram.) 15 gm PO Q15M PRN; Protocol PRN Reason: per Hypoglycemia Standing Ord. Heparin Sodium (Porcine) (Heparin Sodium,Porcine 5,000 Unit/Ml Vial) 5,000 unit SUBCUT Q8H [facility] Last Admin: 04/20/23 13:00 Dose: 5,000 unit Documented By: MICHELLE Ceftriaxone Sodium 1 gm/ (Sodium Chloride) 50 mls @ 100 mls/hr IV Q24H [facility] Last Infusion: 04/19/23 19:31 Dose: Infused Documented By: MICHAEL Insulin Glargine (Insulin Glargine,Hum.Rec.Anlog 100 Unit/Ml 10 Ml Vial) 30 unit SUBCUT BEDTIME [facility] Last Admin: 04/19/23 20:12 Dose: 30 unit Documented By: MICHAEL Insulin Human Lispro (Insulin Lispro 100 Unit/Ml 3 Ml Vial) 0 unit SUBCUT QIDACHS [facility]; Protocol Last Admin: 04/20/23 12:07 Dose: 4 unit Documented By: MICHELLE Isosorbide Mononitrate (Isosorbide Mononitrate 60 Mg Tab.Er.24h) 60 mg PO DAILY [facility]; Protocol Last Admin: 04/20/23 07:53 Dose: 60 mg Documented By: TRINA Lorazepam (Lorazepam 1 Mg Tablet) 1 mg PO TID PRN PRN Reason: Anxiety Last Admin: 04/18/23 14:28 Dose: 1 mg Documented By: ALBERTO Magnesium Hydroxide (Milk Of Magnesia 30 Ml Oral.Susp) 30 ml PO DAILY [facility] Last Admin: 04/20/23 07:55 Dose: 30 ml Documented By: TRINA Melatonin (Melatonin 3 Mg Tablet) 6 mg PO BEDTIME PRN PRN Reason: Insomnia Methenamine Hippurate (Methenamine Hippurate 1 Gm Tablet) 1 gm PO DAILY@1200 [facility] Last Admin: 04/20/23 13:00 Dose: 1 gm Documented By: MICHELLE Morphine Sulfate (Morphine Sulfate Immed Release 15 Mg Tablet) 15 mg PO Q6H PRN PRN Reason: Pain, Mild (Pain Scale 1-3) Last Admin: 04/20/23 12:07 Dose: 15 mg Documented By: MICHELLE Nitroglycerin (Nitroglycerin 0.4 Mg Tab.Subl) 0.4 mg SUBLINGUAL Q5M PRN PRN Reason: chest pain Omeprazole (Omeprazole 20 Mg Capsule.Dr) 20 mg PO DAILY@0630 [facility] Last Admin: 04/20/23 05:34 Dose: 20 mg Documented By: ODYEIMI Ondansetron HCl (Ondansetron Hcl 4 Mg/2 Ml Vial) 4 mg IVPUSH Q8H PRN PRN Reason: Nausea and Vomiting Last Admin: 04/20/23 12:07 Dose: 4 mg Documented By: MICHELLE Polyethyl Glycol/Propylene Glycol (Propylene Glycol/Peg 400 Gel Eye Drops 10ml) 2 drop EYE-BOTH TID [facility] Last Admin: 04/20/23 08:07 Dose: 2 drop Documented By: TRINA Polyethylene Glycol (Polyethylene Glycol 3350 17 Gm Powd.Pack) 17 gm PO DAILY [facility] Last Admin: 04/20/23 07:55 Dose: 17 gm Documented By: TRINA Sodium Chloride (0.9 % Sodium Chloride Flush 3 Ml Syringe) 3 ml IVFLUSH QSHIFT [facility] Last Admin: 04/20/23 07:55 Dose: 3 ml Documented By: TRINA Sodium Zirconium Cyclosilicate (Sodium Zirconium Cyclosilicate 10 Gm Powd.Pack) 10 gm PO MoWeFr@0900 [facility] Last Admin: 04/19/23 07:58 Dose: 10 gm Documented By: TRINA Labs 04/14/23 06:46 04/16/23 06:29 Labs: Laboratory Results - last 24 hr 04/19/23 04/19/23 04/20/23 16:11 19:46 07:29 POC Glucose 359 H* 333 H 274 H 04/20/23 11:16 POC Glucose 237 H Assessment and Plan (1) CKD (chronic kidney disease) stage 4, GFR 15-29 ml/min: Status: Acute (2) Incarcerated ventral hernia: Status: Acute Plan 72 year old legally blind and obese (BMI 41.2) white female with past medical history of IBS (with constipation), CAD, T2DM (on Insulin), hypertension and s/p left foot amputation here with Constipation MiraLax, milk of magnesia Will add Colace and bisacodyl suppository Small-bowel obstruction with incarcerated incisional and ventral hernia s/p exploratory laparotomy, reduction of incarcerated hernia, partial amputation of omentum, enterolysis, repair of incisional hernia with mesh 04/13/2023 advance diet ,laxative ,incentive sprio surgery following Hyperkalemia Resolved with loklema Acute renal failure Back to baseline citrobacter Freundii UTI completed 6 days of Rocephin Type 2 diabetes mellitus controlled ss, lantus Hypertension control not optimal continue amlodipine, coreg, imdur morbid obesity. BMI 41.2 Discussed importance of weight management as this may be contributing to worsening of other comorbidities DVT: [place] Heparin Attending Dr. Melton DVT prophylaxis DISPO plan for rehab when medically clear ongoing hospitalization need:abd hernia -s/p abd hernia surgery-passing gases no bm's yet, flactuating bp -need bp medication adjustment and monitor renal function and electrolytes due recent hyperkalemia,hypoxia -need to be monitered closely. Quality Stroke Does the patient have a stroke diagnosis?: No VTE Prior VTE?: No VTE Risk Level:: Medical - moderate - high VTE Device Contraindication: Treatment Not Indicated VTE Drug Contraindication: N/A - Med Ordered
[2023-04-20 14:58] VITALS: BP 125/55; PULSE 80; RESP 15; TEMP 36.3; O2SAT 93
--- NOTE | 2023-04-20 15:11 | PC.NURSE ---
Patient reports strong rectal pain. Feeling urge to stool, but unable to void. Liquid stool seeping out, but appears large/hard stool having difficulty coming out. Wanda Gomes [employer] made aware. KUB ordered, negative acute. Pain and nausea meds given per EMAR. Natasha GORMAN updated.
[2023-04-20 16:22] LABS: Glucose, Whole Blood 284 mg/dL (60-115)
[2023-04-20] MEDS: cefTRIAXone sodium 1 GM in 0.9 % Sodium Chloride 50 ML IV (17:41)
[2023-04-20 19:41] VITALS: BP 156/70; PULSE 75; RESP 17; TEMP 36.2; O2SAT 94
[2023-04-20 20:30] LABS: Glucose, Whole Blood 239 mg/dL (60-115)
[2023-04-20] MEDS: Insulin Glargine,Hum.rec.anlog 100 UNIT/ML 10 ML VIAL 30 UNIT SUBCUT (20:56)
[2023-04-20 23:47] VITALS: BP 128/58; PULSE 73; RESP 16; TEMP 36.1; O2SAT 97
[2023-04-21] VITALS (7 sets, daily range): BP systolic 131–169; BP diastolic 60–68; PULSE 63–75; RESP 16–18; TEMP 36.1–37.1; O2SAT 94–98
[2023-04-21] MEDS: Omeprazole 20 MG CAPSULE.DR PO (05:38)
[2023-04-21] MEDS: Heparin Sodium,Porcine 5,000 UNIT/ML VIAL 5000 UNIT SUBCUT ×2 (05:38→12:17)
[2023-04-21 07:28] LABS: Glucose, Whole Blood 209 mg/dL (60-115)
[2023-04-21] MEDS: Insulin Lispro 100 UNIT/ML 3 ML VIAL SUBCUT ×3 (07:56→17:00)
[2023-04-21] MEDS: 0.9 % Sodium Chloride Flush 3 ML SYRINGE IVFLUSH ×2 (07:56→17:05)
--- NOTE | 2023-04-21 07:56 | PM.PNGS ---
Subjective Subjective Date of Service: 04/21/23 <Natasha Brown PA-C - Last Filed: 04/21/23 08:03> 04/21/23 <Delano Serrato MD - Last Filed: 04/21/23 10:54> Interval history: C/o severe rectal pain starting yesterday. Continues today. Had very small liquid BM this morning. <Natasha Brown PA-C - Last Filed: 04/21/23 08:03> Physical Exam Vital Signs: Vital Signs: Last Vital Signs Temp 98.4 F 04/21/23 07:06 Pulse 67 04/21/23 07:06 Resp 18 04/21/23 07:06 BP 140/61 H 04/21/23 07:06 Pulse Ox 97 04/21/23 07:06 O2 Del Method Nasal Cannula 04/21/23 07:06 O2 Flow Rate 2 04/21/23 07:06 Oxygen Flow Rate 2 04/15/23 14:00 BMI result Body Mass Index 41.2 <Natasha Brown PA-C - Last Filed: 04/21/23 08:03> Const: Other: uncomfortable appearing <Natasha Brown PA-C - Last Filed: 04/21/23 08:03> General: alert <YOBANI Armstrong Last Filed: 04/21/23 08:03> Orientation/consciousness: patient oriented x3 <YOBANI rAmstrong Last Filed: 04/21/23 08:03> Resp: Effort & Inspection: normal respiratory effort <YOBANI Armstrong Last Filed: 04/21/23 08:03> GI: Other: corpulent abd rectal vault with large amount of palpable semi firm stool <YOBANI Armstrong Last Filed: 04/21/23 08:03> Inspection: No distended and Yes incision (clean) <YOBANI Armstrong Last Filed: 04/21/23 08:03> Palpation (GI): Soft to palpation, Tenderness to palpation present (GI) (incisional) and no guarding <YOBANI Armstrong Last Filed: 04/21/23 08:03> Neuro: General: patient oriented x3 <Natasha Brown PA-C - Last Filed: 04/21/23 08:03> Objective Data Active Medications Acetaminophen (Acetaminophen 325 Mg Tablet) 975 mg PO TID [facility] Last Admin: 04/20/23 20:54 Dose: 975 mg Documented By: MICHAEL Al Hydroxide/Mg Hydroxide (Magnesium Hydrox/Alum Hydrox 30 Ml Oral.Susp) 30 ml PO Q4H PRN PRN Reason: Heartburn/Nausea Albuterol/Ipratropium (Albuterol/Iprat 2.5/0.5mg 3 Ml Ampul.Neb) 3 ml INHALE RQ4H WHILE AWAKE [facility] Last Admin: 04/20/23 19:49 Dose: Not Given Documented By: JEAN PIERRE Non-Admin Reason: Patient Refused Amlodipine Besylate (Amlodipine Besylate 2.5 Mg Tablet) 2.5 mg PO DAILY [facility]; Protocol Last Admin: 04/20/23 07:54 Dose: 2.5 mg Documented By: TRINA Aspirin (Aspirin Enteric Coated 81 Mg Tablet.Dr) 81 mg PO DAILY [facility] Last Admin: 04/20/23 07:53 Dose: 81 mg Documented By: TRINA Atorvastatin Calcium (Atorvastatin Calcium 80 Mg Tablet) 80 mg PO DAILY [facility] Last Admin: 04/20/23 07:54 Dose: 80 mg Documented By: TRINA Bisacodyl (Bisacodyl 10 Mg Supp.Rect) 10 mg ME ONCE PRN PRN Reason: Constipation Carvedilol (Carvedilol 6.25 Mg Tablet) 6.25 mg PO BID [facility]; Protocol Last Admin: 04/20/23 20:55 Dose: 6.25 mg Documented By: MICHAEL Dextrose (Dextrose 50 % 25 Gm/50 Ml Syringe) 25 gm IVPUSH Q15M PRN; Protocol PRN Reason: per Hypoglycemia Standing Ord. Docusate Sodium (Docusate Sodium 100 Mg Capsule) 100 mg PO BID [facility] Last Admin: 04/20/23 20:55 Dose: 100 mg Documented By: MICHAEL Gabapentin (Gabapentin 300 Mg Capsule) 300 mg PO TID [facility] Last Admin: 04/20/23 20:55 Dose: 300 mg Documented By: MICHAEL Glucose (Glucose Gel 15 Gm Gel..Gram.) 15 gm PO Q15M PRN; Protocol PRN Reason: per Hypoglycemia Standing Ord. Heparin Sodium (Porcine) (Heparin Sodium,Porcine 5,000 Unit/Ml Vial) 5,000 unit SUBCUT Q8H [facility] Last Admin: 04/21/23 05:38 Dose: 5,000 unit Documented By: MICHAEL Ceftriaxone Sodium 1 gm/ (Sodium Chloride) 50 mls @ 100 mls/hr IV Q24H [facility] Last Infusion: 04/20/23 18:11 Dose: Infused Documented By: AUBREY Insulin Glargine (Insulin Glargine,Hum.Rec.Anlog 100 Unit/Ml 10 Ml Vial) 30 unit SUBCUT BEDTIME [facility] Last Admin: 04/20/23 20:56 Dose: 30 unit Documented By: MICHAEL Insulin Human Lispro (Insulin Lispro 100 Unit/Ml 3 Ml Vial) 0 unit SUBCUT QIDACHS [facility]; Protocol Last Admin: 04/20/23 20:56 Dose: 4 unit Documented By: MICHAEL Isosorbide Mononitrate (Isosorbide Mononitrate 60 Mg Tab.Er.24h) 60 mg PO DAILY [facility]; Protocol Last Admin: 04/20/23 07:53 Dose: 60 mg Documented By: TRINA Lorazepam (Lorazepam 1 Mg Tablet) 1 mg PO TID PRN PRN Reason: Anxiety Last Admin: 04/18/23 14:28 Dose: 1 mg Documented By: ALBERTO Magnesium Hydroxide (Milk Of Magnesia 30 Ml Oral.Susp) 30 ml PO DAILY [facility] Last Admin: 04/20/23 07:55 Dose: 30 ml Documented By: TRINA Melatonin (Melatonin 3 Mg Tablet) 6 mg PO BEDTIME PRN PRN Reason: Insomnia Methenamine Hippurate (Methenamine Hippurate 1 Gm Tablet) 1 gm PO DAILY@1200 [facility] Last Admin: 04/20/23 13:00 Dose: 1 gm Documented By: MICHELLE Morphine Sulfate (Morphine Sulfate Immed Release 15 Mg Tablet) 15 mg PO Q6H PRN PRN Reason: Pain, Mild (Pain Scale 1-3) Last Admin: 04/20/23 18:20 Dose: 15 mg Documented By: AUBREY Nitroglycerin (Nitroglycerin 0.4 Mg Tab.Subl) 0.4 mg SUBLINGUAL Q5M PRN PRN Reason: chest pain Omeprazole (Omeprazole 20 Mg Capsule.Dr) 20 mg PO DAILY@0630 [facility] Last Admin: 04/21/23 05:38 Dose: 20 mg Documented By: MICHAEL Ondansetron HCl (Ondansetron Hcl 4 Mg/2 Ml Vial) 4 mg IVPUSH Q8H PRN PRN Reason: Nausea and Vomiting Last Admin: 04/20/23 12:07 Dose: 4 mg Documented By: MICHELLE Polyethyl Glycol/Propylene Glycol (Propylene Glycol/Peg 400 Gel Eye Drops 10ml) 2 drop EYE-BOTH TID [facility] Last Admin: 04/20/23 21:09 Dose: 2 drop Documented By: MICHAEL Polyethylene Glycol (Polyethylene Glycol 3350 17 Gm Powd.Pack) 17 gm PO DAILY [facility] Last Admin: 04/20/23 07:55 Dose: 17 gm Documented By: TRINA Sodium Chloride (0.9 % Sodium Chloride Flush 3 Ml Syringe) 3 ml IVFLUSH QSHIFT [facility] Last Admin: 04/20/23 20:56 Dose: 3 ml Documented By: MICHAEL Sodium Zirconium Cyclosilicate (Sodium Zirconium Cyclosilicate 10 Gm Powd.Pack) 10 gm PO MoWeFr@0900 [facility] Last Admin: 04/19/23 07:58 Dose: 10 gm Documented By: TRINA <Natasha Brown PA-C - Last Filed: 04/21/23 08:03> Labs CBC & Chem 7: 04/21/23 10:35 04/16/23 06:29 <Natasha Brown PA-C - Last Filed: 04/21/23 08:03> Labs: Laboratory Results - last 24 hr 04/20/23 04/20/23 04/20/23 11:16 16:08 20:27 POC Glucose 237 H 284 H 239 H 04/21/23 07:16 POC Glucose 209 H <Natasha Brown PA-C - Last Filed: 04/21/23 08:03> Procedures Date of Service Date of Service: 04/21/23 <Natasha Brown PA-C - Last Filed: 04/21/23 08:03> 04/21/23 <Delano Serrato MD - Last Filed: 04/21/23 10:54> Progress Note: A&P Assessment and plan (1) SBO (small bowel obstruction): Status: Acute <YOBANI Armstrong Last Filed: 04/21/23 08:03> (2) Incarcerated ventral hernia: Status: Acute <Natasha Brown PA-C - Last Filed: 04/21/23 08:03> Assessment and Plan: Disimpaction performed at bedside. Patient positioned laterally and large amount of semi firm stool palpable in rectal vault, soft stool superior to this which was also evacuated. No further stool palpable. Cont bowel regimen. <Natasha Brown PA-C - Last Filed: 04/21/23 08:03> Time Spent With Patient Time: Total time managing care of this patient today ____ minutes. <Natasha Brown PA-C - Last Filed: 04/21/23 08:03> Quality Stroke Does the patient have a stroke diagnosis?: No <Natasha Brown PA-C - Last Filed: 04/21/23 08:03> VTE Prior VTE?: No <Natasha Brown PA-C - Last Filed: 04/21/23 08:03> VTE Risk Level:: Medical - moderate - high <YOBANI Armstrong Last Filed: 04/21/23 08:03> VTE Device Contraindication: Treatment Not Indicated <Natasha Brown PA-C - Last Filed: 04/21/23 08:03> VTE Drug Contraindication: N/A - Med Ordered <YOBANI Armstrong Last Filed: 04/21/23 08:03>
[2023-04-21] MEDS: Isosorbide Mononitrate 60 MG TAB.ER.24H PO (07:57)
[2023-04-21] MEDS: Atorvastatin Calcium 80 MG TABLET PO (07:57)
[2023-04-21] MEDS: Sodium Zirconium Cyclosilicate 10 GM POWD.PACK PO (07:57)
[2023-04-21] MEDS: amLODIPine Besylate 2.5 MG TABLET PO (07:57)
[2023-04-21] MEDS: Aspirin Enteric Coated 81 MG TABLET.DR PO (07:57)
[2023-04-21] MEDS: Acetaminophen 325 MG TABLET 975 MG PO (07:57)
[2023-04-21] MEDS: Gabapentin 300 MG CAPSULE PO ×2 (07:58→17:01)
[2023-04-21] MEDS: Morphine Sulfate Immed Release 15 MG TABLET PO (07:58)
[2023-04-21] MEDS: carvediloL 6.25 MG TABLET PO (07:58)
[2023-04-21] MEDS: Propylene Glycol/PEG 400 Gel Eye Drops 10ML 2 DROP EYE-BOTH ×2 (08:04→17:03)
--- NOTE | 2023-04-21 09:46 | HO.PM.IMPN ---
Subjective Subjective Date of Service: 04/21/23 Interval History: s/p hernia repair havign nausea and vomiting Review of Systems abd pain improving passing gases no bm yet,tolerating diet Physical Exam Vital Signs: Vital Signs: Last Vital Signs Temp 98.4 F 04/21/23 07:06 Pulse 67 04/21/23 07:06 Resp 18 04/21/23 07:06 BP 140/61 H 04/21/23 07:06 Pulse Ox 97 04/21/23 07:06 O2 Del Method Nasal Cannula 04/21/23 07:06 O2 Flow Rate 2 04/21/23 07:06 Oxygen Flow Rate 2 04/15/23 14:00 BMI result Body Mass Index 41.2 Appearing in no acute distress lung sounds are clear to auscultation heart regular rate rhythm, clear S1, S2 positive bowel sounds, abdomen is soft, nontender neuro patient is alert x3, no focal deficits Objective Data Active Medications Acetaminophen (Acetaminophen 325 Mg Tablet) 975 mg PO TID [facility] Last Admin: 04/21/23 07:57 Dose: 975 mg Documented By: TRINA Al Hydroxide/Mg Hydroxide (Magnesium Hydrox/Alum Hydrox 30 Ml Oral.Susp) 30 ml PO Q4H PRN PRN Reason: Heartburn/Nausea Albuterol/Ipratropium (Albuterol/Iprat 2.5/0.5mg 3 Ml Ampul.Neb) 3 ml INHALE RQ4H WHILE AWAKE [facility] Last Admin: 04/21/23 08:10 Dose: Not Given Documented By: LEONEL Non-Admin Reason: Patient Refused Amlodipine Besylate (Amlodipine Besylate 2.5 Mg Tablet) 2.5 mg PO DAILY [facility]; Protocol Last Admin: 04/21/23 07:57 Dose: 2.5 mg Documented By: TRINA Aspirin (Aspirin Enteric Coated 81 Mg Tablet.) 81 mg PO DAILY [facility] Last Admin: 04/21/23 07:57 Dose: 81 mg Documented By: TRINA Atorvastatin Calcium (Atorvastatin Calcium 80 Mg Tablet) 80 mg PO DAILY [facility] Last Admin: 04/21/23 07:57 Dose: 80 mg Documented By: TRINA Bisacodyl (Bisacodyl 10 Mg Supp.Rect) 10 mg [place] ONCE PRN PRN Reason: Constipation Carvedilol (Carvedilol 6.25 Mg Tablet) 6.25 mg PO BID [facility]; Protocol Last Admin: 04/21/23 07:58 Dose: 6.25 mg Documented By: TRINA Dextrose (Dextrose 50 % 25 Gm/50 Ml Syringe) 25 gm IVPUSH Q15M PRN; Protocol PRN Reason: per Hypoglycemia Standing Ord. Docusate Sodium (Docusate Sodium 100 Mg Capsule) 100 mg PO BID [facility] Last Admin: 04/21/23 08:05 Dose: Not Given Documented By: TRINA Non-Admin Reason: pt having BMs Gabapentin (Gabapentin 300 Mg Capsule) 300 mg PO TID [facility] Last Admin: 04/21/23 07:58 Dose: 300 mg Documented By: TRINA Glucose (Glucose Gel 15 Gm Gel..Gram.) 15 gm PO Q15M PRN; Protocol PRN Reason: per Hypoglycemia Standing Ord. Heparin Sodium (Porcine) (Heparin Sodium,Porcine 5,000 Unit/Ml Vial) 5,000 unit SUBCUT Q8H [facility] Last Admin: 04/21/23 05:38 Dose: 5,000 unit Documented By: MICHAEL Ceftriaxone Sodium 1 gm/ (Sodium Chloride) 50 mls @ 100 mls/hr IV Q24H [facility] Last Infusion: 04/20/23 18:11 Dose: Infused Documented By: AUBREY Insulin Glargine (Insulin Glargine,Hum.Rec.Anlog 100 Unit/Ml 10 Ml Vial) 30 unit SUBCUT BEDTIME [facility] Last Admin: 04/20/23 20:56 Dose: 30 unit Documented By: MICHAEL Insulin Human Lispro (Insulin Lispro 100 Unit/Ml 3 Ml Vial) 0 unit SUBCUT QIDACHS [facility]; Protocol Last Admin: 04/21/23 07:56 Dose: 4 unit Documented By: TRINA Isosorbide Mononitrate (Isosorbide Mononitrate 60 Mg Tab.Er.24h) 60 mg PO DAILY [facility]; Protocol Last Admin: 04/21/23 07:57 Dose: 60 mg Documented By: TRINA Magnesium Hydroxide (Milk Of Magnesia 30 Ml Oral.Susp) 30 ml PO DAILY [facility] Last Admin: 04/21/23 08:05 Dose: Not Given Documented By: TRINA Non-Admin Reason: pt having BMs Melatonin (Melatonin 3 Mg Tablet) 6 mg PO BEDTIME PRN PRN Reason: Insomnia Methenamine Hippurate (Methenamine Hippurate 1 Gm Tablet) 1 gm PO DAILY@1200 [facility] Last Admin: 04/20/23 13:00 Dose: 1 gm Documented By: MICHELLE Morphine Sulfate (Morphine Sulfate Immed Release 15 Mg Tablet) 15 mg PO Q6H PRN PRN Reason: Pain, Mild (Pain Scale 1-3) Last Admin: 04/21/23 07:58 Dose: 15 mg Documented By: TRINA Nitroglycerin (Nitroglycerin 0.4 Mg Tab.Subl) 0.4 mg SUBLINGUAL Q5M PRN PRN Reason: chest pain Omeprazole (Omeprazole 20 Mg Capsule.Dr) 20 mg PO DAILY@0630 [facility] Last Admin: 04/21/23 05:38 Dose: 20 mg Documented By: ODYEIMI Ondansetron HCl (Ondansetron Hcl 4 Mg/2 Ml Vial) 4 mg IVPUSH Q8H PRN PRN Reason: Nausea and Vomiting Last Admin: 04/20/23 12:07 Dose: 4 mg Documented By: MICHELLE Polyethyl Glycol/Propylene Glycol (Propylene Glycol/Peg 400 Gel Eye Drops 10ml) 2 drop EYE-BOTH TID [facility] Last Admin: 04/21/23 08:04 Dose: 2 drop Documented By: TRINA Polyethylene Glycol (Polyethylene Glycol 3350 17 Gm Powd.Pack) 17 gm PO DAILY [facility] Last Admin: 04/21/23 08:06 Dose: Not Given Documented By: TRINA Non-Admin Reason: pt having BM Sodium Chloride (0.9 % Sodium Chloride Flush 3 Ml Syringe) 3 ml IVFLUSH QSHIFT [facility] Last Admin: 04/21/23 07:56 Dose: 3 ml Documented By: TRINA Sodium Zirconium Cyclosilicate (Sodium Zirconium Cyclosilicate 10 Gm Powd.Pack) 10 gm PO MoWeFr@0900 [facility] Last Admin: 04/21/23 07:57 Dose: 10 gm Documented By: TRINA Labs 04/21/23 10:35 04/21/23 10:35 Labs: Laboratory Results - last 24 hr 04/20/23 04/20/23 04/20/23 11:16 16:08 20:27 POC Glucose 237 H 284 H 239 H 04/21/23 07:16 POC Glucose 209 H Assessment and Plan (1) CKD (chronic kidney disease) stage 4, GFR 15-29 ml/min: Status: Acute (2) Incarcerated ventral hernia: Status: Acute Plan 72 year old legally blind and obese (BMI 41.2) white female with past medical history of IBS (with constipation), CAD, T2DM (on Insulin), hypertension and s/p left foot amputation here with Nausea and vomiting KUB yesterday, neg zofran as needed Constipation. Resolved MiraLax, milk of magnesia Will add Colace and bisacodyl suppository prn Small-bowel obstruction with incarcerated incisional and ventral hernia s/p exploratory laparotomy, reduction of incarcerated hernia, partial amputation of omentum, enterolysis, repair of incisional hernia with mesh 04/13/2023 advance diet ,laxative ,incentive sprio surgery following Hyperkalemia Resolved with loklema Acute renal failure Back to baseline citrobacter Freundii UTI completed 6 days of Rocephin Type 2 diabetes mellitus controlled ss, lantus Hypertension control not optimal continue amlodipine, coreg, imdur morbid obesity. BMI 41.2 Discussed importance of weight management as this may be contributing to worsening of other comorbidities DVT: [place] Heparin Attending Dr. Melton DVT prophylaxis DISPO plan for rehab when medically clear ongoing hospitalization need:abd hernia -s/p abd hernia surgery-passing gases no bm's yet, flactuating bp -need bp medication adjustment and monitor renal function and electrolytes due recent hyperkalemia,hypoxia -need to be monitered closely. Quality Stroke Does the patient have a stroke diagnosis?: No VTE Prior VTE?: No VTE Risk Level:: Medical - moderate - high VTE Device Contraindication: Treatment Not Indicated VTE Drug Contraindication: N/A - Med Ordered
[2023-04-21] MEDS: ondansetron HCL 4 MG/2 ML VIAL IVPUSH (10:35)
[2023-04-21 10:50] LABS: Hemoglobin 11.6 g/dl (12.0-16.0); Mean Corpuscular HGB Conc 31.4 g/dl (31.0-35.0); Mean Corpuscular Hemoglobin 30.9 pg (27.0-33.0); Mean Corpuscular Volume 98.4 fL (80.0-98.0); Mean Platelet Volume 11.9 fL (9.4-12.3); Platelet Count 328 X10*3/uL (160-400); Red Blood Count 3.76 X10*6/uL (4.20-5.50); Red Cell Distribution Width 14.3 % (11.0-16.0); White Blood Count 18.4 X10*3/uL (4.8-10.8)
[2023-04-21 10:55] LABS: Lactic Acid 1.4 mmol/L (0.5-2.0)
[2023-04-21 11:02] LABS: Anion Gap 11 (12-20); Blood Urea Nitrogen 69 mg/dL (9-16); Calcium 8.7 mg/dL (8.4-10.2); Carbon Dioxide 24 mmol/L (22-29); Chloride 106 mmol/L (96-108); Creatinine Clr Calc Pharmacy 31.1; Estimated Glomerular Filt Rate 23; Glucose Random 221 mg/dL (60-115); Magnesium 2.5 mg/dL (1.6-2.6); Potassium 5.4 mmol/L (3.3-5.1); Sodium 136 mmol/L (135-145)
[2023-04-21 11:10] LABS: Glucose, Whole Blood 226 mg/dL (60-115)
--- NOTE | 2023-04-21 11:48 | MHC.CLN ---
F/U DIET=DIABETIC 2000 [facility]. PER NEPHROLOGY, LOW POTASSIUM DIET. PATIENT WITH CKD STAGE 4. DISCONTINUE SUPPLEMENT DUE TO HIGH PROTEIN CONTENT. PATIENT WITH STAGE II WOUND TO COCCYX. INTAKE AT MEALS VARIABLE, WITH MOST 75-100%. FOLLOW FOR INTAKE AND SKIN INTEGRITY.
[2023-04-21] MEDS: Methenamine Hippurate 1 GM TABLET PO (12:17)
--- NOTE | 2023-04-21 13:43 | PM.EVENT ---
Event Note Date of Service: 04/21/23 Event Note: Patient with nausea/vomiting that started this morning after attempting to get OOB with PT. Denies flatus in the past couple of days. No BM following disimpaction. Abd is very corpulent and therefore hard to assess but does not seem distended, mild incisional tenderness. Yesterday AXR reviewed, stomach and ?small bowel dilated. Likely has adynamic small intestine from narcotics, limited activity. Zofran, phenergan ordered. Discussed possible NGT insertion if continued vomiting. OOB encouraged but RN reports this was attempted and unsuccessful with 3 assists due to patient weakness. Time Spent With Patient Time: Total time managing care of this patient today ____ minutes.
--- NOTE | 2023-04-21 14:27 | HO.WOUND ---
Wound Consult: Follow up 72yr old F ?admitted to [facility] on? 04/12/23- See progress notes and H&P for detailed history.? Wound consult placed for Coccyx, Skin Folds, Nose, and Left Amputation site. Todays follow up was for the right nare wound - remains Device related Unstageable Musocal Injury. Arrival to bedside pt had no dressing in place - wound bed dry adherent eschar vs scab. No open tissue noted at this time. No erythema noted, no drainage noted no fluctuance noted. The patient does have Oxygen in place now and wound bed appears dry will reattempt Hydrocolloid dressing to right nare. Applied at bedside. Pt reported constipation and nausea - provider aware and treating. Disimpaction provided this morning by provider - no bowel movement since - TT to provider to consider Enema Fleet or Mineral oil enema to aid in stool movement. Left side lying and legs bent to stimulate and produce bowel movement. Right Nare - Unchanged today - Oxygen has since been restarted as well. Etiology: ??Device Related Mucosal Pressure Injury (NG tube since removed) Wound Bed: nonblanchable tissue central area with scab vs eschar no drainage noted - stable - dry Drainage / Odor: None noted Edges: ? Irregular and attached Miri wound: Intact ? No Induration, Fluctuance or Warmth noted Pain: Mild Tenderness noted Goals of Treatment: ? Device since removed - continue to off load pressure and Hydoroclloid to allow for moist wound healing and protect from friction Left Lower Leg Etiology: ??Diabetic Wound - appears chronic Wound Bed: pink red moist clean wound bed Drainage / Odor: no odor yellow drainage noted when dressing removed Edges: ?epibole Miri wound: callused and dry No Induration, Fluctuance or Warmth noted Pain: denies Goals of Treatment: ? continue to off load pressure and alginate to allow for moist wound healing Coccyx - not assessed today ?Stage 2 Pressure Injury - POA Continue current topical recommendations. Abdominal Skin Folds -Intertrigo not assessed today continue current topical recommendations. Recommendations: 1. Turn and Reposition every 2 hours and as needed for patient comfort.? Use pillows or wedges to support off loading positions. 2. Off Load all bony prominences with use of pillows and heel boots if needed.? Apply Preventative foams where needed. ? 3. Monitor for incontinence and moisture control, use barrier creams when needed for prevention and treatment. 4. Provide adequate and supplemental nutrition. Place Nutrition consult if appropriate. 5. Continue low air loss mattress. JAMAL in place. 6. Maintain blood glucose levels per Providers orders if applicable. 7. Coccyx, Perineum and Skin Folds - Off Load Pressure - Cleanse with PH balance spray or wipes, pat dry. ?Apply thin layer of Triad to wound bed - only pat and dab no scrub and rub when soiling occurs. Reapply thin layer PRN after each episode of incontinence. 8. Right Nare - Cleanse with NS moist gauze, cover with cut to fit Hydrocolloid, change every 3 days and PRN for lifting. 9. Left Lower Leg - Cleanse and irrigate with NS, Pat dry.? Apply barrier to periwound, lightly pack with Alginate / Durafiber AG, be sure to leave a wick to easy removal.? Cover with Foam dressing. (may cover with gauze wrap if desired.? Change Daily. Re-consult wound care Nurse for wound deterioration or wound changes.
[2023-04-21 16:12] LABS: Glucose, Whole Blood 228 mg/dL (60-115)
[2023-04-21] MEDS: cefTRIAXone sodium 1 GM in 0.9 % Sodium Chloride 50 ML IV (18:47)
[2023-04-21 21:06] LABS: Glucose, Whole Blood 149 mg/dL (60-115)
[2023-04-21] MEDS: Insulin Glargine,Hum.rec.anlog 100 UNIT/ML 10 ML VIAL 30 UNIT SUBCUT (21:29)
--- NOTE | 2023-04-21 22:29 | PC.NURSE ---
noticed patient refused neurontin and tylenol at 1618. I asked patient if they would like those medications along with her meds due at 2100. She said why not , but upon entering with her meds she then refused saying she is too tired, despite encouragement/education
[2023-04-22 03:40] VITALS: BP 157/67; PULSE 68; RESP 16; TEMP 36.2; O2SAT 99
[2023-04-22] MEDS: Omeprazole 20 MG CAPSULE.DR PO (06:19)
[2023-04-22] MEDS: Heparin Sodium,Porcine 5,000 UNIT/ML VIAL 5000 UNIT SUBCUT ×3 (06:19→20:17)
--- NOTE | 2023-04-22 07:49 | P.PNGS_ITS ---
Subjective Subjective Date of Service: 04/22/23 Interval history: Did vomit a few times yesterday. Feeling improved this morning, no nausea. Reports no further BM following disimpaction yesterday but reports chronic constipation and usually has a BM every 3-4 days. Physical Exam 2 Vital Signs: Vital Signs: Last Vital Signs Temp 97.1 F 04/22/23 03:40 Pulse 68 04/22/23 03:40 Resp 16 04/22/23 03:40 BP 157/67 H 04/22/23 03:40 Pulse Ox 99 04/22/23 03:40 O2 Del Method Nasal Cannula 04/22/23 03:40 O2 Flow Rate 2 04/22/23 03:40 Oxygen Flow Rate 2 04/15/23 14:00 BMI result Body Mass Index 41.2 Const: General: comfortable, no acute distress and alert O rientation/consciousness: patient oriented x3 Resp: Effort & Inspection: normal respiratory effort GI: Inspection: Yes distended (mild) and Yes incision (clean) Palpation (GI): Soft to palpation, Tenderness to palpation present (GI) (very mild incisional), no guarding and not rigid Skin: General skin exam: no rashes or lesions noted Neuro: General: patient oriented x3 Objective Data Active Medications Acetaminophen (Acetaminophen 325 Mg Tablet) 975 mg PO TID [facility] Last Admin: 04/21/23 21:00 Dose: Not Given Documented By: CESAR Non-Admin Reason: Patient Refused Al Hydroxide/Mg Hydroxide (Magnesium Hydrox/Alum Hydrox 30 Ml Oral.Susp) 30 ml PO Q4H PRN PRN Reason: Heartburn/Nausea Albuterol/Ipratropium (Albuterol/Iprat 2.5/0.5mg 3 Ml Ampul.Neb) 3 ml INHALE RQ4H WHILE AWAKE PRN PRN Reason: wheezing Amlodipine Besylate (Amlodipine Besylate 2.5 Mg Tablet) 2.5 mg PO DAILY [facility]; Protocol Last Admin: 04/21/23 07:57 Dose: 2.5 mg Documented By: TRINA Aspirin (Aspirin Enteric Coated 81 Mg Tablet.) 81 mg PO DAILY [facility] Last Admin: 04/21/23 07:57 Dose: 81 mg Documented By: TRINA Atorvastatin Calcium (Atorvastatin Calcium 80 Mg Tablet) 80 mg PO DAILY [facility] Last Admin: 04/21/23 07:57 Dose: 80 mg Documented By: TRINA Bisacodyl (Bisacodyl 10 Mg Supp.Rect) 10 mg NV ONCE PRN PRN Reason: Constipation Carvedilol (Carvedilol 6.25 Mg Tablet) 6.25 mg PO BID [facility]; Protocol Last Admin: 04/21/23 21:00 Dose: Not Given Documented By: CESAR Non-Admin Reason: Patient Refused Dextrose (Dextrose 50 % 25 Gm/50 Ml Syringe) 25 gm IVPUSH Q15M PRN; Protocol PRN Reason: per Hypoglycemia Standing Ord. Docusate Sodium (Docusate Sodium 100 Mg Capsule) 100 mg PO BID [facility] Last Admin: 04/21/23 21:00 Dose: Not Given Documented By: CESAR Non-Admin Reason: Patient Refused Gabapentin (Gabapentin 300 Mg Capsule) 300 mg PO TID [facility] Last Admin: 04/21/23 21:00 Dose: Not Given Documented By: CESAR Non-Admin Reason: Patient Refused Glucose (Glucose Gel 15 Gm Gel..Gram.) 15 gm PO Q15M PRN; Protocol PRN Reason: per Hypoglycemia Standing Ord. Heparin Sodium (Porcine) (Heparin Sodium,Porcine 5,000 Unit/Ml Vial) 5,000 unit SUBCUT Q8H [facility] Last Admin: 04/22/23 06:19 Dose: 5,000 unit Documented By: ALONZO Ceftriaxone Sodium 1 gm/ (Sodium Chloride) 50 mls @ 100 mls/hr IV Q24H [facility] Last Infusion: 04/21/23 19:49 Dose: Infused Documented By: CESAR Promethazine HCl 12.5 mg/ (Sodium Chloride) 50.5 mls @ 202 mls/hr IV Q6H PRN PRN Reason: Nausea and Vomiting Last Infusion: 04/21/23 13:50 Dose: Infused Documented By: TRINA Insulin Glargine (Insulin Glargine,Hum.Rec.Anlog 100 Unit/Ml 10 Ml Vial) 30 unit SUBCUT BEDTIME [facility] Last Admin: 04/21/23 21:29 Dose: 30 unit Documented By: CESAR Insulin Human Lispro (Insulin Lispro 100 Unit/Ml 3 Ml Vial) 0 unit SUBCUT QIDACHS [facility]; Protocol Last Admin: 04/21/23 21:23 Dose: Not Given Documented By: CESAR Non-Admin Reason: No Insulin Coverage Isosorbide Mononitrate (Isosorbide Mononitrate 60 Mg Tab.Er.24h) 60 mg PO DAILY [facility]; Protocol Last Admin: 04/21/23 07:57 Dose: 60 mg Documented By: TRINA Magnesium Hydroxide (Milk Of Magnesia 30 Ml Oral.Susp) 30 ml PO DAILY [facility] Last Admin: 04/21/23 08:05 Dose: Not Given Documented By: TRINA Non-Admin Reason: pt having BMs Melatonin (Melatonin 3 Mg Tablet) 6 mg PO BEDTIME PRN PRN Reason: Insomnia Methenamine Hippurate (Methenamine Hippurate 1 Gm Tablet) 1 gm PO DAILY@1200 [facility] Last Admin: 04/21/23 12:17 Dose: 1 gm Documented By: TRINA Morphine Sulfate (Morphine Sulfate Immed Release 15 Mg Tablet) 15 mg PO Q6H PRN PRN Reason: Pain, Mild (Pain Scale 1-3) Last Admin: 04/21/23 07:58 Dose: 15 mg Documented By: TRINA Nitroglycerin (Nitroglycerin 0.4 Mg Tab.Subl) 0.4 mg SUBLINGUAL Q5M PRN PRN Reason: chest pain Omeprazole (Omeprazole 20 Mg Capsule.Dr) 20 mg PO DAILY@0630 [facility] Last Admin: 04/22/23 06:19 Dose: 20 mg Documented By: ALONZO Ondansetron HCl (Ondansetron Hcl 4 Mg/2 Ml Vial) 4 mg IVPUSH Q8H PRN PRN Reason: Nausea and Vomiting Last Admin: 04/21/23 10:35 Dose: 4 mg Documented By: TRINA Polyethyl Glycol/Propylene Glycol (Propylene Glycol/Peg 400 Gel Eye Drops 10ml) 2 drop EYE-BOTH TID [facility] Last Admin: 04/21/23 21:00 Dose: Not Given Documented By: CESAR Non-Admin Reason: Patient Refused Polyethylene Glycol (Polyethylene Glycol 3350 17 Gm Powd.Pack) 17 gm PO DAILY [facility] Last Admin: 04/21/23 08:06 Dose: Not Given Documented By: TRINA Non-Admin Reason: pt having BM Sodium Chloride (0.9 % Sodium Chloride Flush 3 Ml Syringe) 3 ml IVFLUSH QSHIFT [facility] Last Admin: 04/21/23 23:10 Dose: Not Given Documented By: ALONZO Non-Admin Reason: Previously Administered Sodium Zirconium Cyclosilicate (Sodium Zirconium Cyclosilicate 10 Gm Powd.Pack) 10 gm PO MoWeFr@0900 [facility] Last Admin: 04/21/23 07:57 Dose: 10 gm Documented By: TRINA Labs 04/22/23 08:13 04/22/23 08:13 Labs: Laboratory Results - last 24 hr 04/21/23 04/21/23 04/21/23 10:35 11:05 16:08 MCV 98.4 H MCH 30.9 MCHC 31.4 RDW 14.3 Plt Count 328 D MPV 11.9 Absolute Nucleated RBC 0.000 Nucleated RBC % (auto) 0.0 Anion Gap 11 L Estim Creat Clear Calc 31.1 Estimated GFR 23 POC Glucose 226 H 228 H Random Glucose 221 H Lactic Acid 1.4 Calcium 8.7 Magnesium 2.5 04/21/23 20:58 MCV MCH MCHC RDW Plt Count MPV Absolute Nucleated RBC Nucleated RBC % (auto) Anion Gap Estim Creat Clear Calc Estimated GFR POC Glucose 149 H Random Glucose Lactic Acid Calcium Magnesium Procedures Date of Service Date of Service: 04/22/23 Progress Note: A&P Assessment and plan (1) SBO (small bowel obstruction): Status: Acute (2) Incarcerated ventral hernia: Status: Acute Plan GI function continues to recover slowly. Diet as tolerated. Continue bowel regimen. Abd benign with clean incision, no evidence of hernia recurrence. Strongly encouraged to at least sit up on the side of bed at least 4x today to help with recovery. Time Spent With Patient Time: Total time managing care of this patient today ____ minutes. Quality Stroke Does the patient have a stroke diagnosis?: No VTE Prior VTE?: No VTE Risk Level:: Medical - moderate - high VTE Device Contraindication: Treatment Not Indicated VTE Drug Contraindication: N/A - Med Ordered
[2023-04-22 07:58] LABS: Glucose, Whole Blood 149 mg/dL (60-115)
[2023-04-22 08:00] VITALS: BP 154/68; PULSE 68; RESP 17; TEMP 36.3; O2SAT 98
[2023-04-22 08:51] LABS: Basophils Percent Auto 0.3 % (0-2); Eosinophils Absolute Auto 0.8 X10*3/uL (0.0-0.4); Eosinophils Percent Auto 5.8 % (0-4); Hematocrit 35.7 % (37.0-47.0); Imm Gran Abs Auto 0.09 X10*3/uL (0.00-0.03); Imm Gran Pct Auto 0.7 % (0.0-0.4); Lymphocytes Absolute Auto 2.5 X10*3/uL (1.2-4.9); Lymphocytes Percent Auto 17.8 % (20-40); MANUAL DIFF FLAG SCAN; Mean Corpuscular HGB Conc 30.8 g/dl (31.0-35.0); Mean Corpuscular Hemoglobin 30.5 pg (27.0-33.0); Mean Corpuscular Volume 98.9 fL (80.0-98.0); Mean Platelet Volume 11.8 fL (9.4-12.3); Monocytes Absolute Auto 1.6 X10*3/uL (0.1-1.2); Monocytes Percent Auto 11.9 % (2-11); Neutrophils Absolute Auto 8.8 x10*3/uL (2.0-8.3); Neutrophils Percent Auto 63.5 % (45-73); Platelet Count 302 X10*3/uL (160-400); Red Blood Count 3.61 X10*6/uL (4.20-5.50); Red Cell Distribution Width 14.5 % (11.0-16.0); SCAN SMEAR FLAG 1; White Blood Count 13.8 X10*3/uL (4.8-10.8)
[2023-04-22 09:10] LABS: Anion Gap 11 (12-20); Blood Urea Nitrogen 67 mg/dL (9-16); Calcium 8.8 mg/dL (8.4-10.2); Carbon Dioxide 26 mmol/L (22-29); Chloride 108 mmol/L (96-108); Creatinine Clr Calc Pharmacy 31.7; Estimated Glomerular Filt Rate 24; Glucose Random 150 mg/dL (60-115); Potassium 5.1 mmol/L (3.3-5.1); Sodium 140 mmol/L (135-145)
[2023-04-22 09:18] LABS: SLIDE REVIEW VERIFIED
[2023-04-22] MEDS: polyethylene glycoL 3350 17 GM POWD.PACK PO (09:26)
[2023-04-22] MEDS: Isosorbide Mononitrate 60 MG TAB.ER.24H PO (09:26)
[2023-04-22] MEDS: Sennosides 8.6 MG TABLET 17.2 MG PO (09:26)
[2023-04-22] MEDS: amLODIPine Besylate 2.5 MG TABLET PO (09:27)
[2023-04-22] MEDS: Acetaminophen 325 MG TABLET 975 MG PO ×3 (09:27→20:18)
[2023-04-22] MEDS: carvediloL 6.25 MG TABLET PO ×2 (09:27→20:19)
[2023-04-22] MEDS: Aspirin Enteric Coated 81 MG TABLET.DR PO (09:27)
[2023-04-22] MEDS: Milk of Magnesia 30 ML ORAL.SUSP PO (09:27)
[2023-04-22] MEDS: Gabapentin 300 MG CAPSULE PO ×3 (09:27→20:19)
[2023-04-22] MEDS: Docusate Sodium 100 MG CAPSULE PO ×2 (09:27→20:19)
[2023-04-22] MEDS: Atorvastatin Calcium 80 MG TABLET PO (09:27)
[2023-04-22] MEDS: 0.9 % Sodium Chloride Flush 3 ML SYRINGE IVFLUSH ×3 (09:28→20:20)
[2023-04-22] MEDS: Propylene Glycol/PEG 400 Gel Eye Drops 10ML 2 DROP EYE-BOTH ×3 (09:37→20:40)
[2023-04-22 11:20] LABS: Glucose, Whole Blood 183 mg/dL (60-115)
[2023-04-22] MEDS: ondansetron HCL 4 MG/2 ML VIAL IVPUSH (11:52)
[2023-04-22] MEDS: Methenamine Hippurate 1 GM TABLET PO (11:53)
--- NOTE | 2023-04-22 11:58 | P.PNIM_ITS ---
Subjective Subjective Date of Service: 04/22/23 Interval History: s/p hernia repair no ongoing nausea/vomiting. She is hungry, tolerating diet. Feels gas moving, but no bm yet. was manually disimpacted yesterday Review of Systems Review of Systems: Yes all other systems are reviewed and are negative Physical Exam 2 Vital Signs: Vital Signs: Last Vital Signs Temp 97.3 F 04/22/23 08:00 Pulse 68 04/22/23 08:00 Resp 17 04/22/23 08:00 BP 154/68 H 04/22/23 08:00 Pulse Ox 98 04/22/23 08:00 O2 Del Method Nasal Cannula 04/22/23 08:00 O2 Flow Rate 2.0 04/22/23 08:00 Oxygen Flow Rate 2 04/15/23 14:00 BMI result Body Mass Index 41.2 Constitutional - Awake and Alert, No apparent distress Eyes - PERRLA, EOMI Cardiovascular - S1S2, RRR, No edema Respiratory - Normal lung expansion, Normal respiratory effort, No respiratory distress, CTA bilaterally Gastrointestinal - NT / ND; +BS; No rebound or guarding Extremities - no calf tenderness bilaterally, no swelling Skin - Warm/Dry Neurological - Alert & oriented x3 Psychological - Appropriate affect Objective Data Active Medications Acetaminophen (Acetaminophen 325 Mg Tablet) 975 mg PO TID [facility] Last Admin: 04/22/23 09:27 Dose: 975 mg Documented By: JERRY Al Hydroxide/Mg Hydroxide (Magnesium Hydrox/Alum Hydrox 30 Ml Oral.Susp) 30 ml PO Q4H PRN PRN Reason: Heartburn/Nausea Albuterol/Ipratropium (Albuterol/Iprat 2.5/0.5mg 3 Ml Ampul.Neb) 3 ml INHALE RQ4H WHILE AWAKE PRN PRN Reason: wheezing Amlodipine Besylate (Amlodipine Besylate 2.5 Mg Tablet) 2.5 mg PO DAILY [facility]; Protocol Last Admin: 04/22/23 09:27 Dose: 2.5 mg Documented By: JERRY Aspirin (Aspirin Enteric Coated 81 Mg Tablet.) 81 mg PO DAILY [facility] Last Admin: 04/22/23 09:27 Dose: 81 mg Documented By: JERRY Atorvastatin Calcium (Atorvastatin Calcium 80 Mg Tablet) 80 mg PO DAILY [facility] Last Admin: 04/22/23 09:27 Dose: 80 mg Documented By: JERRY Bisacodyl (Bisacodyl 10 Mg Supp.Rect) 10 mg SD ONCE PRN PRN Reason: Constipation Carvedilol (Carvedilol 6.25 Mg Tablet) 6.25 mg PO BID [facility]; Protocol Last Admin: 04/22/23 09:27 Dose: 6.25 mg Documented By: JERRY Dextrose (Dextrose 50 % 25 Gm/50 Ml Syringe) 25 gm IVPUSH Q15M PRN; Protocol PRN Reason: per Hypoglycemia Standing Ord. Docusate Sodium (Docusate Sodium 100 Mg Capsule) 100 mg PO BID [facility] Last Admin: 04/22/23 09:27 Dose: 100 mg Documented By: JERRY Gabapentin (Gabapentin 300 Mg Capsule) 300 mg PO TID [facility] Last Admin: 04/22/23 09:27 Dose: 300 mg Documented By: JERRY Glucose (Glucose Gel 15 Gm Gel..Gram.) 15 gm PO Q15M PRN; Protocol PRN Reason: per Hypoglycemia Standing Ord. Heparin Sodium (Porcine) (Heparin Sodium,Porcine 5,000 Unit/Ml Vial) 5,000 unit SUBCUT Q8H [facility] Last Admin: 04/22/23 11:53 Dose: 5,000 unit Documented By: ALBERTO Ceftriaxone Sodium 1 gm/ (Sodium Chloride) 50 mls @ 100 mls/hr IV Q24H [facility] Last Infusion: 04/21/23 19:49 Dose: Infused Documented By: CESAR Promethazine HCl 12.5 mg/ (Sodium Chloride) 50.5 mls @ 202 mls/hr IV Q6H PRN PRN Reason: Nausea and Vomiting Last Infusion: 04/21/23 13:50 Dose: Infused Documented By: TRINA Insulin Glargine (Insulin Glargine,Hum.Rec.Anlog 100 Unit/Ml 10 Ml Vial) 30 unit SUBCUT BEDTIME [facility] Last Admin: 04/21/23 21:29 Dose: 30 unit Documented By: CESAR Insulin Human Lispro (Insulin Lispro 100 Unit/Ml 3 Ml Vial) 0 unit SUBCUT QIDACHS [facility]; Protocol Last Admin: 04/22/23 09:18 Dose: Not Given Documented By: JERRY Non-Admin Reason: No Insulin Coverage Isosorbide Mononitrate (Isosorbide Mononitrate 60 Mg Tab.Er.24h) 60 mg PO DAILY [facility]; Protocol Last Admin: 04/22/23 09:26 Dose: 60 mg Documented By: JERRY Magnesium Hydroxide (Milk Of Magnesia 30 Ml Oral.Susp) 30 ml PO DAILY [facility] Last Admin: 04/22/23 09:27 Dose: 30 ml Documented By: JERRY Melatonin (Melatonin 3 Mg Tablet) 6 mg PO BEDTIME PRN PRN Reason: Insomnia Methenamine Hippurate (Methenamine Hippurate 1 Gm Tablet) 1 gm PO DAILY@1200 [facility] Last Admin: 04/22/23 11:53 Dose: 1 gm Documented By: ALBERTO Morphine Sulfate (Morphine Sulfate Immed Release 15 Mg Tablet) 15 mg PO Q6H PRN PRN Reason: Pain, Mild (Pain Scale 1-3) Last Admin: 04/21/23 07:58 Dose: 15 mg Documented By: TRINA Nitroglycerin (Nitroglycerin 0.4 Mg Tab.Subl) 0.4 mg SUBLINGUAL Q5M PRN PRN Reason: chest pain Omeprazole (Omeprazole 20 Mg Capsule.Dr) 20 mg PO DAILY@0630 [facility] Last Admin: 04/22/23 06:19 Dose: 20 mg Documented By: ALONZO Ondansetron HCl (Ondansetron Hcl 4 Mg/2 Ml Vial) 4 mg IVPUSH Q8H PRN PRN Reason: Nausea and Vomiting Last Admin: 04/22/23 11:52 Dose: 4 mg Documented By: ALBERTO Polyethyl Glycol/Propylene Glycol (Propylene Glycol/Peg 400 Gel Eye Drops 10ml) 2 drop EYE-BOTH TID [facility] Last Admin: 04/22/23 09:37 Dose: 2 drop Documented By: JERRY Polyethylene Glycol (Polyethylene Glycol 3350 17 Gm Powd.Pack) 17 gm PO DAILY [facility] Last Admin: 04/22/23 09:26 Dose: 17 gm Documented By: JERRY Senna (Sennosides 8.6 Mg Tablet) 17.2 mg PO DAILY [facility] Last Admin: 04/22/23 09:26 Dose: 17.2 mg Documented By: JERRY Sodium Chloride (0.9 % Sodium Chloride Flush 3 Ml Syringe) 3 ml IVFLUSH QSHIFT [facility] Last Admin: 04/22/23 09:28 Dose: 3 ml Documented By: JERRY Sodium Zirconium Cyclosilicate (Sodium Zirconium Cyclosilicate 10 Gm Powd.Pack) 10 gm PO MoWeFr@0900 [facility] Last Admin: 04/21/23 07:57 Dose: 10 gm Documented By: TRINA Labs 04/22/23 08:13 04/22/23 08:13 Labs: Laboratory Results - last 24 hr 04/21/23 04/21/23 04/22/23 16:08 20:58 07:53 MCV MCH MCHC RDW Plt Count MPV Immature Gran % (Auto) Neut % (Auto) Lymph % (Auto) [place] % (Auto) Eos % (Auto) Baso % (Auto) Lymph # (Auto) [place] # (Auto) Eos # (Auto) Baso # (Auto) Abs Immat Gran (auto) Absolute Neuts (auto) Absolute Nucleated RBC Nucleated RBC % (auto) Smear Tech's Comments Anion Gap Estim Creat Clear Calc Estimated GFR POC Glucose 228 H 149 H 149 H Random Glucose Calcium 04/22/23 04/22/23 08:13 11:13 MCV 98.9 H MCH 30.5 MCHC 30.8 L RDW 14.5 Plt Count 302 MPV 11.8 Immature Gran % (Auto) 0.7 H Neut % (Auto) 63.5 Lymph % (Auto) 17.8 L [place] % (Auto) 11.9 H Eos % (Auto) 5.8 H Baso % (Auto) 0.3 Lymph # (Auto) 2.5 [place] # (Auto) 1.6 H Eos # (Auto) 0.8 H Baso # (Auto) 0.0 Abs Immat Gran (auto) 0.09 H Absolute Neuts (auto) 8.8 H Absolute Nucleated RBC 0.000 Nucleated RBC % (auto) 0.0 Smear Tech's Comments VERIFIED Anion Gap 11 L Estim Creat Clear Calc 31.7 Estimated GFR 24 POC Glucose 183 H Random Glucose 150 H Calcium 8.8 Assessment and Plan (1) CKD (chronic kidney disease) stage 4, GFR 15-29 ml/min: Status: Acute (2) Incarcerated ventral hernia: Status: Acute Plan 72 year old legally blind and obese (BMI 41.2) white female with past medical history of IBS (with constipation), CAD, T2DM (on Insulin), hypertension and s/p left foot amputation here with Nausea and vomiting - resolved KUB yesterday, neg zofran as needed Constipation- ongoing MiraLax, milk of magnesia Colace and bisacodyl suppository prn Add senna required manual disimpaction yesterday. Feels gas moving encourage oob Small-bowel obstruction with incarcerated incisional and ventral hernia s/p exploratory laparotomy, reduction of incarcerated hernia, partial amputation of omentum, enterolysis, repair of incisional hernia with mesh 04/13/2023 advance diet ,laxative ,incentive sprio surgery following Hyperkalemia Resolved with loklema Acute renal failure Back to baseline citrobacter Freundii UTI completed 6 days of Rocephin Type 2 diabetes mellitus controlled ss, lantus Hypertension control not optimal continue amlodipine, coreg, imdur morbid obesity. BMI 41.2 Discussed importance of weight management as this may be contributing to worsening of other comorbidities DVT: SC Heparin Attending Dr. eMlton DVT prophylaxis DISPO plan for rehab when medically clear ongoing hospitalization need:abd hernia -s/p abd hernia surgery-passing gases no bm's yet, flactuating bp -need bp medication adjustment and monitor renal function and electrolytes due recent hyperkalemia,hypoxia -need to be monitered closely. Still awaiting BM Quality Stroke Does the patient have a stroke diagnosis?: No VTE Prior VTE?: No VTE Risk Level:: Medical - moderate - high VTE Device Contraindication: Treatment Not Indicated VTE Drug Contraindication: N/A - Med Ordered
[2023-04-22 12:00] VITALS: BP 134/62; PULSE 76; RESP 17; TEMP 36.7; O2SAT 94
--- NOTE | 2023-04-22 13:29 | P.PNNP_ITS ---
Subjective Subjective Date of Service: 04/22/23 Interval history: s/p hernia repair; no ongoing nausea/vomiting. no bm yet. Physical Exam 2 Vital Signs: Vital Signs: Last Vital Signs Temp 98.0 F 04/22/23 12:00 Pulse 76 04/22/23 12:00 Resp 17 04/22/23 12:00 BP 134/62 04/22/23 12:00 Pulse Ox 94 04/22/23 12:00 O2 Del Method Room Air 04/22/23 12:00 O2 Flow Rate 2.0 04/22/23 08:00 Oxygen Flow Rate 2 04/15/23 14:00 BMI result Body Mass Index 41.2 Const: General: comfortable and no acute distress O rientation/consciousness: patient oriented x3 HEENT: Head: Yes normocephalic Mouth: Normal oral and palatal mucosa present Eyes: EOM: EOMs intact bilaterally Neck: Neck: Yes supple Resp: Auscultation: clear to auscultation bilaterally Cardio: Jugular venous distension: no JVD Rate: regular rate GI: Palpation (GI): Soft to palpation Auscultation: normal bowel sounds : General: Yes no CVA tenderness Back/Spine/Pelvis: Back: no CVA tenderness Skin: General skin exam: no rashes or lesions noted Neuro: General: patient oriented x3 and moves all extremities Extrem: General: Yes no pedal edema Objective Data Labs 04/22/23 08:13 04/22/23 08:13 Labs: Laboratory Results - last 24 hr 04/21/23 04/21/23 04/22/23 16:08 20:58 07:53 WBC RBC Hgb Hct MCV MCH MCHC RDW Plt Count MPV Immature Gran % (Auto) Neut % (Auto) Lymph % (Auto) [place] % (Auto) Eos % (Auto) Baso % (Auto) Lymph # (Auto) [place] # (Auto) Eos # (Auto) Baso # (Auto) Abs Immat Gran (auto) Absolute Neuts (auto) Absolute Nucleated RBC Nucleated RBC % (auto) Smear Tech's Comments Sodium Potassium Chloride Carbon Dioxide Anion Gap BUN Creatinine Estim Creat Clear Calc Estimated GFR POC Glucose 228 H 149 H 149 H Random Glucose Calcium 04/22/23 04/22/23 08:13 11:13 WBC 13.8 H RBC 3.61 L Hgb 11.0 L Hct 35.7 L MCV 98.9 H MCH 30.5 MCHC 30.8 L RDW 14.5 Plt Count 302 MPV 11.8 Immature Gran % (Auto) 0.7 H Neut % (Auto) 63.5 Lymph % (Auto) 17.8 L [place] % (Auto) 11.9 H Eos % (Auto) 5.8 H Baso % (Auto) 0.3 Lymph # (Auto) 2.5 [place] # (Auto) 1.6 H Eos # (Auto) 0.8 H Baso # (Auto) 0.0 Abs Immat Gran (auto) 0.09 H Absolute Neuts (auto) 8.8 H Absolute Nucleated RBC 0.000 Nucleated RBC % (auto) 0.0 Smear Tech's Comments VERIFIED Sodium 140 Potassium 5.1 Chloride 108 Carbon Dioxide 26 Anion Gap 11 L BUN 67 H Creatinine 2.04 H Estim Creat Clear Calc 31.7 Estimated GFR 24 POC Glucose 183 H Random Glucose 150 H Calcium 8.8 Microbiology Microbiology Results: Microbiology 04/12/23 Unknown Urine clean catch - Urine romero top Urine Culture - Final Citrobacter freundii Procedures Date of Service Date of Service: 04/22/23 Assessment & Plan Assessment and plan (1) CKD (chronic kidney disease) stage 4, GFR 15-29 ml/min: Status: Acute (2) Acute kidney injury: Status: Acute Plan Caty had acute kidney injury on a backdrop of chronic kidney disease stage 4, likely due to tubular injury . Her renal functions are stable and close to baseline. There is no reason to suspect any obstructive uropathy, new acute glomerular or interstitial pathology causing IRINA. She is not on any diuretics, nonsteroidal anti-inflammatories, WOOD inhibitor or ARB. We should keep her on low-potassium diet and give her Lokelma as on a needed basis. She needs regular outpatient care with Dr. 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 Progress Note: Quality Stroke Does the patient have a stroke diagnosis?: No
--- NOTE | 2023-04-22 14:39 | HO.WOUND ---
Wound Consult: Follow up 72yr old F ?[place] [facility] [place] See progress notes and H&P for detailed history.? Wound consult placed for Coccyx, Skin Folds, Nose, and Left Amputation site. Todays follow up was for the Coccyx and abdominal folds. Arrival to bedside pt noted to have right nare hydrocolloid still in palce - pt reports no pain or concern at this time. Left Leg dressing intact to be completed by direct care nurse . Coccyx and skin folds assessed during bathing. No new topical recommendations needed at this time. Skin folds appear improved. Abdominal Skin Folds -Intertrigo Etiology: ??MASD (Moisture Associated Skin Damage) Wound Bed: pink red moist wound bed with scattered areas of partial thickness tissue loss at base of skin fold Drainage / Odor: small smount of serosang Edges: ?Linear to base of skin fold Miri wound: MASD (Moisture Associated Skin Damage Incontinence related) No Induration, Fluctuance or Warmth noted Pain: Tenderness noted with cleansing Goals of Treatment: ?Triad to allow for moist wound healing and protect from friction and moisture Coccyx Etiology: ??Stage 2 Pressure Injury - POA Measurements: see charting for details Wound Bed: pink red moist wound bed nonblanchable in areas over coccyx Drainage / Odor: none noted Edges: ?iregular Miri wound: MASD (Moisture Associated Skin Damage Incontinence related) No Induration, Fluctuance or Warmth noted Pain: Tenderness noted with cleansing Goals of Treatment: ? continue to off load pressure and Triad to allow for moist wound healing and protect from friction and moisture Recommendations: 1. Turn and Reposition every 2 hours and as needed for patient comfort.? Use pillows or wedges to support off loading positions. 2. Off Load all bony prominences with use of pillows and heel boots if needed.? Apply Preventative foams where needed. ? 3. Monitor for incontinence and moisture control, use barrier creams when needed for prevention and treatment. 4. Provide adequate and supplemental nutrition. Place Nutrition consult if appropriate. 5. Continue low air loss mattress. JAMAL in place. 6. Maintain blood glucose levels per Providers orders if applicable. 7. Coccyx, Perineum and Skin Folds - Off Load Pressure - Cleanse with PH balance spray or wipes, pat dry. ?Apply thin layer of Triad to wound bed - only pat and dab no scrub and rub when soiling occurs. Reapply thin layer PRN after each episode of incontinence. 8. Right Nare - Cleanse with NS moist gauze, cover with cut to fit Hydrocolloid, change every 3 days and PRN for lifting. 9. Left Lower Leg - Cleanse and irrigate with NS, Pat dry.? Apply barrier to periwound, lightly pack with Alginate / Durafiber AG, be sure to leave a wick to easy removal.? Cover with Foam dressing. (may cover with gauze wrap if desired.? Change Daily. Re-consult wound care Nurse for wound deterioration or wound changes.
[2023-04-22 15:19] VITALS: BP 136/60; PULSE 72; RESP 17; TEMP 36.2; O2SAT 92
[2023-04-22 16:40] LABS: Glucose, Whole Blood 210 mg/dL (60-115)
[2023-04-22] MEDS: cefTRIAXone sodium 1 GM in 0.9 % Sodium Chloride 50 ML IV (17:06)
[2023-04-22] MEDS: Insulin Lispro 100 UNIT/ML 3 ML VIAL SUBCUT ×2 (17:32→20:18)
[2023-04-22 19:00] VITALS: BP 148/99; PULSE 64; RESP 17; TEMP 36.2; O2SAT 95
[2023-04-22 19:51] LABS: Glucose, Whole Blood 205 mg/dL (60-115)
[2023-04-22] MEDS: Insulin Glargine,Hum.rec.anlog 100 UNIT/ML 10 ML VIAL 30 UNIT SUBCUT (20:17)
[2023-04-23 03:56] VITALS: BP 132/60; PULSE 65; RESP 18; TEMP 36.2; O2SAT 93
[2023-04-23] MEDS: Omeprazole 20 MG CAPSULE.DR PO (05:26)
[2023-04-23] MEDS: Heparin Sodium,Porcine 5,000 UNIT/ML VIAL 5000 UNIT SUBCUT ×2 (05:26→12:21)
[2023-04-23 07:32] LABS: Glucose, Whole Blood 204 mg/dL (60-115)
[2023-04-23 07:33] VITALS: BP 131/63; PULSE 67; RESP 14; TEMP 36.2; O2SAT 94
[2023-04-23] MEDS: Milk of Magnesia 30 ML ORAL.SUSP PO (08:04)
[2023-04-23] MEDS: Atorvastatin Calcium 80 MG TABLET PO (08:05)
[2023-04-23] MEDS: Gabapentin 300 MG CAPSULE PO ×2 (08:05→15:44)
[2023-04-23] MEDS: Insulin Lispro 100 UNIT/ML 3 ML VIAL SUBCUT ×3 (08:06→17:06)
[2023-04-23] MEDS: Aspirin Enteric Coated 81 MG TABLET.DR PO (08:06)
[2023-04-23] MEDS: amLODIPine Besylate 2.5 MG TABLET PO (08:06)
[2023-04-23] MEDS: Sodium Zirconium Cyclosilicate 10 GM POWD.PACK PO (08:06)
[2023-04-23] MEDS: carvediloL 6.25 MG TABLET PO (08:06)
[2023-04-23] MEDS: Isosorbide Mononitrate 60 MG TAB.ER.24H PO (08:06)
[2023-04-23] MEDS: Sennosides 8.6 MG TABLET 17.2 MG PO (08:06)
[2023-04-23] MEDS: polyethylene glycoL 3350 17 GM POWD.PACK PO (08:06)
[2023-04-23] MEDS: Docusate Sodium 100 MG CAPSULE PO (08:06)
[2023-04-23] MEDS: 0.9 % Sodium Chloride Flush 3 ML SYRINGE IVFLUSH ×2 (08:07→15:49)
[2023-04-23] MEDS: Propylene Glycol/PEG 400 Gel Eye Drops 10ML 2 DROP EYE-BOTH ×2 (09:07→15:44)
[2023-04-23] MEDS: Acetaminophen 325 MG TABLET 975 MG PO ×2 (09:35→15:43)
--- NOTE | 2023-04-23 11:07 | MHC.CLN ---
F/U DIET=DIABETIC 2000 KCALS, LOW POTASSIUM DIET. PATIENT WITH CKD STAGE 4. SKIN WITH STAGE II WOUND TO COCCYX. INTAKE AT MEALS VARIABLE AND POOR AT TIMES, 0-100%. FOLLOW FOR INTAKE AND SKIN INTEGRITY.
[2023-04-23 11:16] LABS: Glucose, Whole Blood 244 mg/dL (60-115)
[2023-04-23 11:18] VITALS: BP 131/63; PULSE 67; O2SAT 94
--- NOTE | 2023-04-23 12:07 | MHC.CM.PN ---
updated pt note sent to oc
--- NOTE | 2023-04-23 12:37 | P.PNGS_ITS ---
Subjective Subjective Date of Service: 04/23/23 Interval history: Tolerating solid diet, no further nausea or vomiting. Had multiple BMs this morning. Physical Exam 2 Vital Signs: Vital Signs: Last Vital Signs Temp 97.1 F 04/23/23 07:33 Pulse 67 04/23/23 11:18 Resp 14 04/23/23 07:33 BP 131/63 04/23/23 11:18 Pulse Ox 94 04/23/23 11:18 O2 Del Method Room Air 04/23/23 07:33 O2 Flow Rate 2 04/22/23 19:00 Oxygen Flow Rate 2 04/15/23 14:00 BMI result Body Mass Index 41.2 Const: General: comfortable, no acute distress and alert O rientation/consciousness: patient oriented x3 GI: Other: incision clean, erythema surrounding superior aspect but appears to be secondary to reaction from adhesions rather than infection Palpation (GI): Soft to palpation, no guarding and not rigid Skin: General skin exam: no rashes or lesions noted Neuro: General: patient oriented x3 Objective Data Active Medications Acetaminophen (Acetaminophen 325 Mg Tablet) 975 mg PO TID [facility] Last Admin: 04/23/23 09:35 Dose: 975 mg Documented By: THOMAS Al Hydroxide/Mg Hydroxide (Magnesium Hydrox/Alum Hydrox 30 Ml Oral.Susp) 30 ml PO Q4H PRN PRN Reason: Heartburn/Nausea Albuterol/Ipratropium (Albuterol/Iprat 2.5/0.5mg 3 Ml Ampul.Neb) 3 ml INHALE RQ4H WHILE AWAKE PRN PRN Reason: wheezing Amlodipine Besylate (Amlodipine Besylate 2.5 Mg Tablet) 2.5 mg PO DAILY [facility]; Protocol Last Admin: 04/23/23 08:06 Dose: 2.5 mg Documented By: THOMAS Aspirin (Aspirin Enteric Coated 81 Mg Tablet.) 81 mg PO DAILY [facility] Last Admin: 04/23/23 08:06 Dose: 81 mg Documented By: THOMAS Atorvastatin Calcium (Atorvastatin Calcium 80 Mg Tablet) 80 mg PO DAILY [facility] Last Admin: 04/23/23 08:05 Dose: 80 mg Documented By: THOMAS Bisacodyl (Bisacodyl 10 Mg Supp.Rect) 10 mg NC ONCE PRN PRN Reason: Constipation Carvedilol (Carvedilol 6.25 Mg Tablet) 6.25 mg PO BID [facility]; Protocol Last Admin: 04/23/23 08:06 Dose: 6.25 mg Documented By: THOMAS Dextrose (Dextrose 50 % 25 Gm/50 Ml Syringe) 25 gm IVPUSH Q15M PRN; Protocol PRN Reason: per Hypoglycemia Standing Ord. Docusate Sodium (Docusate Sodium 100 Mg Capsule) 100 mg PO BID [facility] Last Admin: 04/23/23 08:06 Dose: 100 mg Documented By: THOMAS Gabapentin (Gabapentin 300 Mg Capsule) 300 mg PO TID [facility] Last Admin: 04/23/23 08:05 Dose: 300 mg Documented By: THOMAS Glucose (Glucose Gel 15 Gm Gel..Gram.) 15 gm PO Q15M PRN; Protocol PRN Reason: per Hypoglycemia Standing Ord. Heparin Sodium (Porcine) (Heparin Sodium,Porcine 5,000 Unit/Ml Vial) 5,000 unit SUBCUT Q8H [facility] Last Admin: 04/23/23 12:21 Dose: 5,000 unit Documented By: THOMAS Ceftriaxone Sodium 1 gm/ (Sodium Chloride) 50 mls @ 100 mls/hr IV Q24H [facility] Last Infusion: 04/22/23 17:44 Dose: Infused Documented By: COLLEEN Promethazine HCl 12.5 mg/ (Sodium Chloride) 50.5 mls @ 202 mls/hr IV Q6H PRN PRN Reason: Nausea and Vomiting Last Infusion: 04/22/23 15:24 Dose: Infused Documented By: ALBERTO Insulin Glargine (Insulin Glargine,Hum.Rec.Anlog 100 Unit/Ml 10 Ml Vial) 30 unit SUBCUT BEDTIME [facility] Last Admin: 04/22/23 20:17 Dose: 30 unit Documented By: SHARITA Insulin Human Lispro (Insulin Lispro 100 Unit/Ml 3 Ml Vial) 0 unit SUBCUT QIDACHS [facility]; Protocol Last Admin: 04/23/23 12:21 Dose: 4 unit Documented By: THOMAS Isosorbide Mononitrate (Isosorbide Mononitrate 60 Mg Tab.Er.24h) 60 mg PO DAILY [facility]; Protocol Last Admin: 04/23/23 08:06 Dose: 60 mg Documented By: THOMAS Magnesium Hydroxide (Milk Of Magnesia 30 Ml Oral.Susp) 30 ml PO DAILY [facility] Last Admin: 04/23/23 08:04 Dose: 30 ml Documented By: THOMAS Melatonin (Melatonin 3 Mg Tablet) 6 mg PO BEDTIME PRN PRN Reason: Insomnia Morphine Sulfate (Morphine Sulfate Immed Release 15 Mg Tablet) 15 mg PO Q6H PRN PRN Reason: Pain, Mild (Pain Scale 1-3) Last Admin: 04/21/23 07:58 Dose: 15 mg Documented By: TRINA Nitroglycerin (Nitroglycerin 0.4 Mg Tab.Subl) 0.4 mg SUBLINGUAL Q5M PRN PRN Reason: chest pain Omeprazole (Omeprazole 20 Mg Capsule.Dr) 20 mg PO DAILY@0630 [facility] Last Admin: 04/23/23 05:26 Dose: 20 mg Documented By: SHARITA Ondansetron HCl (Ondansetron Hcl 4 Mg/2 Ml Vial) 4 mg IVPUSH Q8H PRN PRN Reason: Nausea and Vomiting Last Admin: 04/22/23 11:52 Dose: 4 mg Documented By: ALBERTO Polyethyl Glycol/Propylene Glycol (Propylene Glycol/Peg 400 Gel Eye Drops 10ml) 2 drop EYE-BOTH TID [facility] Last Admin: 04/23/23 09:07 Dose: 2 drop Documented By: THOMAS Polyethylene Glycol (Polyethylene Glycol 3350 17 Gm Powd.Pack) 17 gm PO DAILY [facility] Last Admin: 04/23/23 08:06 Dose: 17 gm Documented By: THOMAS Senna (Sennosides 8.6 Mg Tablet) 17.2 mg PO DAILY [facility] Last Admin: 04/23/23 08:06 Dose: 17.2 mg Documented By: THOMAS Sodium Chloride (0.9 % Sodium Chloride Flush 3 Ml Syringe) 3 ml IVFLUSH QSHIFT [facility] Last Admin: 04/23/23 08:07 Dose: 3 ml Documented By: THOMAS Sodium Zirconium Cyclosilicate (Sodium Zirconium Cyclosilicate 10 Gm Powd.Pack) 10 gm PO MoWeFr@0900 [facility] Last Admin: 04/23/23 08:06 Dose: 10 gm Documented By: THOMAS Labs 04/22/23 08:13 04/22/23 08:13 Labs: Laboratory Results - last 24 hr 04/22/23 04/22/23 04/23/23 16:36 19:40 07:14 POC Glucose 210 H 205 H 204 H 04/23/23 11:12 POC Glucose 244 H Procedures Date of Service Date of Service: 04/23/23 Progress Note: A&P Assessment and plan (1) SBO (small bowel obstruction): Status: Acute (2) Incarcerated ventral hernia: Status: Acute Plan Now with return of GI function and tolerating solid diet. Abd remains benign with clean incision. Stable for transfer from surgical standpoint when medically cleared. Needs good home bowel regimen. Can f/u in office in 1 week. Time Spent With Patient Time: Total time managing care of this patient today ____ minutes. Quality Stroke Does the patient have a stroke diagnosis?: No VTE Prior VTE?: No VTE Risk Level:: Medical - moderate - high VTE Device Contraindication: Treatment Not Indicated VTE Drug Contraindication: N/A - Med Ordered
[2023-04-23 15:16] VITALS: BP 145/62; PULSE 63; RESP 18; TEMP 36.4; O2SAT 95
--- NOTE | 2023-04-23 15:28 | P.PNIM_ITS ---
Subjective Subjective Date of Service: 04/23/23 Interval History: Improving. Multiple BMs. Surgical input appreciated Review of Systems Denies chest pain Denies shortness of breath Denies nausea vomiting diarrhea Denies fever chills Physical Exam 2 Vital Signs: Vital Signs: Last Vital Signs Temp 97.6 F 04/23/23 15:16 Pulse 63 04/23/23 15:16 Resp 18 04/23/23 15:16 BP 145/62 H 04/23/23 15:16 Pulse Ox 95 04/23/23 15:16 O2 Del Method Room Air 04/23/23 15:16 O2 Flow Rate 2 04/22/23 19:00 Oxygen Flow Rate 2 04/15/23 14:00 BMI result Body Mass Index 41.2 Const: Other: Awake alert no acute distress Resp: Other: Clear to auscultation bilaterally no rales rhonchi wheezes Cardio: Other: No S4; positive S1-S2; no S3 murmurs rubs or gallops GI: Other: Soft nontender nondistended normoactive bowel sounds Extrem: Other: No edema bilaterally Objective Data Active Medications Acetaminophen (Acetaminophen 325 Mg Tablet) 975 mg PO TID [facility] Last Admin: 04/23/23 09:35 Dose: 975 mg Documented By: THOMAS Al Hydroxide/Mg Hydroxide (Magnesium Hydrox/Alum Hydrox 30 Ml Oral.Susp) 30 ml PO Q4H PRN PRN Reason: Heartburn/Nausea Albuterol/Ipratropium (Albuterol/Iprat 2.5/0.5mg 3 Ml Ampul.Neb) 3 ml INHALE RQ4H WHILE AWAKE PRN PRN Reason: wheezing Amlodipine Besylate (Amlodipine Besylate 2.5 Mg Tablet) 2.5 mg PO DAILY [facility]; Protocol Last Admin: 04/23/23 08:06 Dose: 2.5 mg Documented By: THOMAS Aspirin (Aspirin Enteric Coated 81 Mg Tablet.Dr) 81 mg PO DAILY [facility] Last Admin: 04/23/23 08:06 Dose: 81 mg Documented By: THOMAS Atorvastatin Calcium (Atorvastatin Calcium 80 Mg Tablet) 80 mg PO DAILY [facility] Last Admin: 04/23/23 08:05 Dose: 80 mg Documented By: THOMAS Bisacodyl (Bisacodyl 10 Mg Supp.Rect) 10 mg MA ONCE PRN PRN Reason: Constipation Carvedilol (Carvedilol 6.25 Mg Tablet) 6.25 mg PO BID [facility]; Protocol Last Admin: 04/23/23 08:06 Dose: 6.25 mg Documented By: THOMAS Dextrose (Dextrose 50 % 25 Gm/50 Ml Syringe) 25 gm IVPUSH Q15M PRN; Protocol PRN Reason: per Hypoglycemia Standing Ord. Docusate Sodium (Docusate Sodium 100 Mg Capsule) 100 mg PO BID [facility] Last Admin: 04/23/23 08:06 Dose: 100 mg Documented By: THOMAS Gabapentin (Gabapentin 300 Mg Capsule) 300 mg PO TID [facility] Last Admin: 04/23/23 08:05 Dose: 300 mg Documented By: THOMAS Glucose (Glucose Gel 15 Gm Gel..Gram.) 15 gm PO Q15M PRN; Protocol PRN Reason: per Hypoglycemia Standing Ord. Heparin Sodium (Porcine) (Heparin Sodium,Porcine 5,000 Unit/Ml Vial) 5,000 unit SUBCUT Q8H [facility] Last Admin: 04/23/23 12:21 Dose: 5,000 unit Documented By: THOMAS Ceftriaxone Sodium 1 gm/ (Sodium Chloride) 50 mls @ 100 mls/hr IV Q24H [facility] Last Infusion: 04/22/23 17:44 Dose: Infused Documented By: COLLEEN Promethazine HCl 12.5 mg/ (Sodium Chloride) 50.5 mls @ 202 mls/hr IV Q6H PRN PRN Reason: Nausea and Vomiting Last Infusion: 04/22/23 15:24 Dose: Infused Documented By: ALBERTO Insulin Glargine (Insulin Glargine,Hum.Rec.Anlog 100 Unit/Ml 10 Ml Vial) 30 unit SUBCUT BEDTIME [facility] Last Admin: 04/22/23 20:17 Dose: 30 unit Documented By: SHARITA Insulin Human Lispro (Insulin Lispro 100 Unit/Ml 3 Ml Vial) 0 unit SUBCUT QIDACHS [facility]; Protocol Last Admin: 04/23/23 12:21 Dose: 4 unit Documented By: THOMAS Isosorbide Mononitrate (Isosorbide Mononitrate 60 Mg Tab.Er.24h) 60 mg PO DAILY [facility]; Protocol Last Admin: 04/23/23 08:06 Dose: 60 mg Documented By: THOMAS Magnesium Hydroxide (Milk Of Magnesia 30 Ml Oral.Susp) 30 ml PO DAILY [facility] Last Admin: 04/23/23 08:04 Dose: 30 ml Documented By: THOMAS Melatonin (Melatonin 3 Mg Tablet) 6 mg PO BEDTIME PRN PRN Reason: Insomnia Morphine Sulfate (Morphine Sulfate Immed Release 15 Mg Tablet) 15 mg PO Q6H PRN PRN Reason: Pain, Mild (Pain Scale 1-3) Last Admin: 04/21/23 07:58 Dose: 15 mg Documented By: TRINA Nitroglycerin (Nitroglycerin 0.4 Mg Tab.Subl) 0.4 mg SUBLINGUAL Q5M PRN PRN Reason: chest pain Omeprazole (Omeprazole 20 Mg Capsule.Dr) 20 mg PO DAILY@0630 [facility] Last Admin: 04/23/23 05:26 Dose: 20 mg Documented By: SHARITA Ondansetron HCl (Ondansetron Hcl 4 Mg/2 Ml Vial) 4 mg IVPUSH Q8H PRN PRN Reason: Nausea and Vomiting Last Admin: 04/22/23 11:52 Dose: 4 mg Documented By: ALBERTO Polyethyl Glycol/Propylene Glycol (Propylene Glycol/Peg 400 Gel Eye Drops 10ml) 2 drop EYE-BOTH TID [facility] Last Admin: 04/23/23 09:07 Dose: 2 drop Documented By: THOMAS Polyethylene Glycol (Polyethylene Glycol 3350 17 Gm Powd.Pack) 17 gm PO DAILY [facility] Last Admin: 04/23/23 08:06 Dose: 17 gm Documented By: THOMAS Senna (Sennosides 8.6 Mg Tablet) 17.2 mg PO DAILY [facility] Last Admin: 04/23/23 08:06 Dose: 17.2 mg Documented By: THOMAS Sodium Chloride (0.9 % Sodium Chloride Flush 3 Ml Syringe) 3 ml IVFLUSH QSHIFT [facility] Last Admin: 04/23/23 08:07 Dose: 3 ml Documented By: THOMAS Sodium Zirconium Cyclosilicate (Sodium Zirconium Cyclosilicate 10 Gm Powd.Pack) 10 gm PO MoWeFr@0900 [facility] Last Admin: 04/23/23 08:06 Dose: 10 gm Documented By: THOMAS Labs 04/22/23 08:13 04/22/23 08:13 Labs: Laboratory Results - last 24 hr 04/22/23 04/22/23 04/23/23 16:36 19:40 07:14 POC Glucose 210 H 205 H 204 H 04/23/23 11:12 POC Glucose 244 H Assessment and Plan (1) SBO (small bowel obstruction): Status: Acute (2) CKD (chronic kidney disease) stage 4, GFR 15-29 ml/min: Status: Acute Plan 72 year old legally blind and obese (BMI 41.2) white female with past medical history of IBS (with constipation), CAD, T2DM (on Insulin), hypertension and s/p left foot amputation here with nausea and vomiting status post exploratory lap with reduction of incarcerated hernia. Tolerating diet; positive BMs 1.Small-bowel obstruction with incarcerated incisional and ventral hernia -tolerating advancement of diet; positive BMs -okay for returned to our [place] see in a.m. 2.Hyperkalemia -Resolved with loklema 3.Acute renal failure -Back to baseline 4.Citrobacter Freundii UTI -completed 6 days of Rocephin 5.Type 2 diabetes mellitus -acceptable control on current therapies -lispro correctional scale Heparin Full Code DISPO plan for rehab when medically clear ongoing hospitalization need:abd hernia -s/p abd hernia surgery-passing gases no bm's yet, flactuating bp -need bp medication adjustment and monitor renal function and electrolytes due recent hyperkalemia,hypoxia -need to be monitered closely. Still awaiting BM Quality Stroke Does the patient have a stroke diagnosis?: No VTE Prior VTE?: No VTE Risk Level:: Medical - moderate - high VTE Device Contraindication: Treatment Not Indicated VTE Drug Contraindication: N/A - Med Ordered
--- NOTE | 2023-04-23 15:45 | HO.WOUND ---
Wound Consult: Follow up 72yr old F ?admitted to [facility] [place] on? 04/12/23- See progress notes and H&P for detailed history.? Wound consult placed for new right heel wound. Arrival to bedside pt noted to have Habematolel boot removed and at bedside. Her heel is off loaded with foam dressing in place and pillows in place for off loading the heel. After assessment the following interventions were put in place or confirmed in place; JAMAL mattress already in use, waffle cushion provided for if and when up to recliner chair, Right heel placed in off loading heel protector boot III, and Wedges provided and put into place for off loading pressure. Right Heel Etiology: ?Device related Deep Tissue Injury Measurements: see charting for details Wound Bed: intact dark purple nonblanchable tissue Drainage / Odor: None Edges: ? irregular Miri wound: red pink blanchable intact tissue - No Induration, Fluctuance or Warmth noted Pain: pt denies pain Goals of Treatment: ? Off Load Pressure and friction. Remove boot when in bed and not ambulating The following wounds were not assessed at todays consultation. Right Nare - Device related mucosal pressure injury Goals of Treatment: ? Device since removed - continue to off load pressure and Hydoroclloid to allow for moist wound healing and protect from friction Skin folds appear improved. Abdominal Skin Folds -Intertrigo Etiology: ??MASD (Moisture Associated Skin Damage) Goals of Treatment: ?Triad to allow for moist wound healing and protect from friction and moisture Left Lower Leg Etiology: ??Diabetic Wound - Chronic Goals of Treatment: ? continue to off load pressure and alginate to allow for moist wound healing Coccyx - ??Stage 2 Pressure Injury - POA Goals of Treatment: ? continue to off load pressure and Triad to allow for moist wound healing and protect from friction and moisture Recommendations: 1. Turn and Reposition every 2 hours and as needed for patient comfort.? Use pillows or wedges to support off loading positions. 2. Off Load all bony prominences with use of pillows and heel boots if needed.? Apply Preventative foams where needed. ? 3. Monitor for incontinence and moisture control, use barrier creams when needed for prevention and treatment. 4. Provide adequate and supplemental nutrition. Place Nutrition consult if appropriate. 5. Continue low air loss mattress. JAMAL in place. 6. Maintain blood glucose levels per Providers orders if applicable. 7. Coccyx, Perineum and Skin Folds - Off Load Pressure - Cleanse with PH balance spray or wipes, pat dry. ?Apply thin layer of Triad to wound bed - only pat and dab no scrub and rub when soiling occurs. Reapply thin layer PRN after each episode of incontinence. 8. Right Nare - Cleanse with NS moist gauze, cover with cut to fit Hydrocolloid, change every 3 days and PRN for lifting. 9. Left Lower Leg - Cleanse and irrigate with NS, Pat dry.? Apply barrier to periwound, lightly pack with Alginate / Durafiber AG, be sure to leave a wick to easy removal.? Cover with Foam dressing. (may cover with gauze wrap if desired.? Change Daily. 10. Right Heel - Cleanse with routine cleansing, dry well. Apply foam dressing peel back and assess Q shift change every 3 days and PRN. Off load pressure in Heel Protector Boot. Re-consult wound care Nurse for wound deterioration or wound changes.
[2023-04-23 16:36] LABS: Glucose, Whole Blood 180 mg/dL (60-115)
[2023-04-23] MEDS: cefTRIAXone sodium 1 GM in 0.9 % Sodium Chloride 50 ML IV (17:06)
--- NOTE | 2023-04-23 18:14 | PC.NURSE ---
Pt being turned and repositioned in bed Q2hrs and as needed. Right heel DTI noted, wound care nurse at bedside to assess. Heels elevated, foam dressing applied to right heel. Boot for right LE to be removed while in bed and applied when getting OOB or working with Pt.
[2023-04-23 19:35] VITALS: BP 154/62; PULSE 66; RESP 17; TEMP 36.4; O2SAT 94
[2023-04-23 20:20] LABS: Glucose, Whole Blood 165 mg/dL (60-115)
--- NOTE | 2023-04-23 20:24 | PM.PNNEP ---
Subjective Subjective Date of Service: 04/23/23 Interval history: Improving. Multiple BMs. Surgical input appreciated Physical Exam Vital Signs: Vital Signs: Last Vital Signs Temp 97.5 F 04/23/23 19:35 Pulse 66 04/23/23 19:35 Resp 17 04/23/23 19:35 BP 154/62 H 04/23/23 19:35 Pulse Ox 94 04/23/23 19:35 O2 Del Method Room Air 04/23/23 19:35 O2 Flow Rate 2 04/22/23 19:00 Oxygen Flow Rate 2 04/15/23 14:00 BMI result Body Mass Index 41.2 Const: General: comfortable and no acute distress Orientation/consciousness: patient oriented x3 HEENT: Head: Yes normocephalic Mouth: Normal oral and palatal mucosa present Eyes: EOM: EOMs intact bilaterally Neck: Neck: Yes supple Resp: Auscultation: clear to auscultation bilaterally Cardio: Jugular venous distension: no JVD Rate: regular rate GI: Palpation (GI): Soft to palpation Auscultation: normal bowel sounds : General: Yes no CVA tenderness Back/Spine/Pelvis: Back: no CVA tenderness Skin: General skin exam: no rashes or lesions noted Neuro: General: patient oriented x3 and moves all extremities Extrem: General: Yes no pedal edema Objective Data Labs 04/22/23 08:13 04/22/23 08:13 Labs: Laboratory Results - last 24 hr 04/23/23 04/23/23 04/23/23 07:14 11:12 16:29 POC Glucose 204 H 244 H 180 H 04/23/23 20:11 POC Glucose 165 H Microbiology Microbiology Results: Microbiology 04/12/23 Unknown Urine clean catch - Urine romero top Urine Culture - Final Citrobacter freundii Procedures Date of Service Date of Service: 04/23/23 Assessment & Plan Assessment and plan (1) CKD (chronic kidney disease) stage 4, GFR 15-29 ml/min: Status: Acute Plan Caty had acute kidney injury on a backdrop of chronic kidney disease stage 4, likely due to tubular injury . Her renal functions are stable and close to baseline. There is no reason to suspect any obstructive uropathy, new acute glomerular or interstitial pathology causing IRINA. She is not on any diuretics, nonsteroidal anti-inflammatories, WOOD inhibitor or ARB. We should keep her on low-potassium diet and give her Lokelma as on a needed basis. She needs regular outpatient care with Dr. 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
[2023-04-24 03:22] VITALS: BP 138/65; PULSE 68; RESP 18; TEMP 36.1; O2SAT 92
[2023-04-24] MEDS: Morphine Sulfate Immed Release 15 MG TABLET PO (04:50)
[2023-04-24] MEDS: Omeprazole 20 MG CAPSULE.DR PO (05:40)
[2023-04-24] MEDS: Heparin Sodium,Porcine 5,000 UNIT/ML VIAL 5000 UNIT SUBCUT ×3 (05:40→22:28)
[2023-04-24 05:45] LABS: MANUAL DIFF FLAG NO
[2023-04-24 05:54] LABS: Basophils Percent Auto 0.4 % (0-2); Eosinophils Absolute Auto 0.7 X10*3/uL (0.0-0.4); Eosinophils Percent Auto 7.1 % (0-4); Hematocrit 36.5 % (37.0-47.0); Hemoglobin 11.2 g/dl (12.0-16.0); Imm Gran Abs Auto 0.05 X10*3/uL (0.00-0.03); Imm Gran Pct Auto 0.5 % (0.0-0.4); Lymphocytes Absolute Auto 1.5 X10*3/uL (1.2-4.9); Lymphocytes Percent Auto 15.1 % (20-40); Mean Corpuscular HGB Conc 30.7 g/dl (31.0-35.0); Mean Corpuscular Hemoglobin 29.7 pg (27.0-33.0); Mean Corpuscular Volume 96.8 fL (80.0-98.0); Mean Platelet Volume 11.3 fL (9.4-12.3); Monocytes Absolute Auto 1.1 X10*3/uL (0.1-1.2); Neutrophils Absolute Auto 6.6 x10*3/uL (2.0-8.3); Neutrophils Percent Auto 65.9 % (45-73); Platelet Count 343 X10*3/uL (160-400); Red Blood Count 3.77 X10*6/uL (4.20-5.50); Red Cell Distribution Width 14.3 % (11.0-16.0); White Blood Count 10.1 X10*3/uL (4.8-10.8)
[2023-04-24 06:06] LABS: Alanine Aminotransferase 6 U/L (0-31); Albumin Level 2.5 g/dL (3.5-5.0); Alkaline Phosphatase 111 U/L (39-117); Anion Gap 14 (12-20); Aspartate Amino Transferase 22 U/L (5-31); Bilirubin Total 0.2 mg/dL (0.0-1.0); Blood Urea Nitrogen 67 mg/dL (9-16); Calcium 8.9 mg/dL (8.4-10.2); Carbon Dioxide 25 mmol/L (22-29); Chloride 106 mmol/L (96-108); Creatinine Clr Calc Pharmacy 34.8; Estimated Glomerular Filt Rate 27; Glucose Fasting 184 mg/dL (60-99); Potassium 5.5 mmol/L (3.3-5.1); Sodium 139 mmol/L (135-145); Total Protein 6.6 g/dL (6.5-8.0)
--- NOTE | 2023-04-24 06:15 | PC.NURSE ---
During initial shift assessment, pt was confused, only alert to self. Pt thought this check writer was her mother. At the same time, pt refused to take any bedtime medications from this check writer. This check writer tried to redirect the pt but with no success. MD Lauren made aware of the pt's confusion and refusal of bedtime medications. Later on shift, pt became more alert & orientated, able to tell this check writer where she was and time of day. Pt is more A&O this field hand and took her field hand medications without any issues. Will continue to monitor pt's orientation.
[2023-04-24 07:12] VITALS: BP 148/63; PULSE 70; RESP 20; TEMP 36.7; O2SAT 93
[2023-04-24 07:43] LABS: Glucose, Whole Blood 162 mg/dL (60-115)
[2023-04-24] MEDS: Insulin Lispro 100 UNIT/ML 3 ML VIAL SUBCUT ×4 (09:21→22:32)
[2023-04-24] MEDS: Milk of Magnesia 30 ML ORAL.SUSP PO (09:22)
[2023-04-24] MEDS: Sodium Zirconium Cyclosilicate 10 GM POWD.PACK PO (09:22)
[2023-04-24] MEDS: polyethylene glycoL 3350 17 GM POWD.PACK PO (09:23)
[2023-04-24] MEDS: amLODIPine Besylate 2.5 MG TABLET PO (09:24)
[2023-04-24] MEDS: Sennosides 8.6 MG TABLET 17.2 MG PO (09:24)
[2023-04-24] MEDS: Aspirin Enteric Coated 81 MG TABLET.DR PO (09:24)
[2023-04-24] MEDS: Gabapentin 300 MG CAPSULE PO ×3 (09:24→22:28)
[2023-04-24] MEDS: carvediloL 6.25 MG TABLET PO (09:24)
[2023-04-24] MEDS: Isosorbide Mononitrate 60 MG TAB.ER.24H PO (09:24)
[2023-04-24] MEDS: Docusate Sodium 100 MG CAPSULE PO (09:24)
[2023-04-24] MEDS: Atorvastatin Calcium 80 MG TABLET PO (09:24)
[2023-04-24] MEDS: Propylene Glycol/PEG 400 Gel Eye Drops 10ML 2 DROP EYE-BOTH ×3 (09:40→22:34)
[2023-04-24] MEDS: 0.9 % Sodium Chloride Flush 3 ML SYRINGE IVFLUSH ×2 (09:41→22:32)
[2023-04-24] MEDS: Acetaminophen 325 MG TABLET 975 MG PO ×3 (09:41→22:28)
[2023-04-24 11:09] LABS: Glucose, Whole Blood 201 mg/dL (60-115)
--- NOTE | 2023-04-24 14:02 | HO.PM.IMPN ---
Subjective Subjective Date of Service: 04/24/23 Interval History: No acute issues overnight. Positive BM Review of Systems Denies chest pain Denies shortness of breath Denies nausea vomiting diarrhea Denies fever chills Physical Exam Vital Signs: Vital Signs: Last Vital Signs Temp 98.1 F 04/24/23 07:12 Pulse 70 04/24/23 07:12 Resp 20 04/24/23 07:12 BP 148/63 H 04/24/23 07:12 Pulse Ox 93 04/24/23 07:12 O2 Del Method Room Air 04/24/23 07:12 O2 Flow Rate 2 04/22/23 19:00 Oxygen Flow Rate 2 04/15/23 14:00 BMI result Body Mass Index 41.2 Const: Other: Awake alert no acute distress Resp: Other: Clear to auscultation bilaterally no rales rhonchi wheezes Cardio: Other: No S4; positive S1-S2; no S3 murmurs rubs or gallops GI: Other: Soft nontender nondistended normoactive bowel sounds Extrem: Other: No edema bilaterally Objective Data Active Medications Acetaminophen (Acetaminophen 325 Mg Tablet) 975 mg PO TID [facility] Last Admin: 04/24/23 09:41 Dose: 975 mg Documented By: MICKY Al Hydroxide/Mg Hydroxide (Magnesium Hydrox/Alum Hydrox 30 Ml Oral.Susp) 30 ml PO Q4H PRN PRN Reason: Heartburn/Nausea Albuterol/Ipratropium (Albuterol/Iprat 2.5/0.5mg 3 Ml Ampul.Neb) 3 ml INHALE RQ4H WHILE AWAKE PRN PRN Reason: wheezing Amlodipine Besylate (Amlodipine Besylate 2.5 Mg Tablet) 2.5 mg PO DAILY [facility]; Protocol Last Admin: 04/24/23 09:24 Dose: 2.5 mg Documented By: MICKY Aspirin (Aspirin Enteric Coated 81 Mg Tablet.Dr) 81 mg PO DAILY [facility] Last Admin: 04/24/23 09:24 Dose: 81 mg Documented By: MICKY Atorvastatin Calcium (Atorvastatin Calcium 80 Mg Tablet) 80 mg PO DAILY [facility] Last Admin: 04/24/23 09:24 Dose: 80 mg Documented By: MICKY Bisacodyl (Bisacodyl 10 Mg Supp.Rect) 10 mg OK ONCE PRN PRN Reason: Constipation Carvedilol (Carvedilol 6.25 Mg Tablet) 6.25 mg PO BID [facility]; Protocol Last Admin: 04/24/23 09:24 Dose: 6.25 mg Documented By: MICKY Dextrose (Dextrose 50 % 25 Gm/50 Ml Syringe) 25 gm IVPUSH Q15M PRN; Protocol PRN Reason: per Hypoglycemia Standing Ord. Docusate Sodium (Docusate Sodium 100 Mg Capsule) 100 mg PO BID [facility] Last Admin: 04/24/23 09:24 Dose: 100 mg Documented By: MICKY Gabapentin (Gabapentin 300 Mg Capsule) 300 mg PO TID [facility] Last Admin: 04/24/23 09:24 Dose: 300 mg Documented By: MICKY Glucose (Glucose Gel 15 Gm Gel..Gram.) 15 gm PO Q15M PRN; Protocol PRN Reason: per Hypoglycemia Standing Ord. Heparin Sodium (Porcine) (Heparin Sodium,Porcine 5,000 Unit/Ml Vial) 5,000 unit SUBCUT Q8H [facility] Last Admin: 04/24/23 12:28 Dose: 5,000 unit Documented By: MICKY Ceftriaxone Sodium 1 gm/ (Sodium Chloride) 50 mls @ 100 mls/hr IV Q24H [facility] Last Infusion: 04/23/23 17:55 Dose: Infused Documented By: THOMAS Promethazine HCl 12.5 mg/ (Sodium Chloride) 50.5 mls @ 202 mls/hr IV Q6H PRN PRN Reason: Nausea and Vomiting Last Infusion: 04/22/23 15:24 Dose: Infused Documented By: ALBERTO Insulin Glargine (Insulin Glargine,Hum.Rec.Anlog 100 Unit/Ml 10 Ml Vial) 30 unit SUBCUT BEDTIME [facility] Last Admin: 04/23/23 21:01 Dose: Not Given Documented By: MICHELLE Non-Admin Reason: Patient Refused Insulin Human Lispro (Insulin Lispro 100 Unit/Ml 3 Ml Vial) 0 unit SUBCUT QIDACHS [facility]; Protocol Last Admin: 04/24/23 12:29 Dose: 4 unit Documented By: MICKY Isosorbide Mononitrate (Isosorbide Mononitrate 60 Mg Tab.Er.24h) 60 mg PO DAILY [facility]; Protocol Last Admin: 04/24/23 09:24 Dose: 60 mg Documented By: MICKY Magnesium Hydroxide (Milk Of Magnesia 30 Ml Oral.Susp) 30 ml PO DAILY [facility] Last Admin: 04/24/23 09:22 Dose: 30 ml Documented By: MICKY Melatonin (Melatonin 3 Mg Tablet) 6 mg PO BEDTIME PRN PRN Reason: Insomnia Morphine Sulfate (Morphine Sulfate Immed Release 15 Mg Tablet) 15 mg PO Q6H PRN PRN Reason: Pain, Mild (Pain Scale 1-3) Last Admin: 04/24/23 04:50 Dose: 15 mg Documented By: MICHELLE Nitroglycerin (Nitroglycerin 0.4 Mg Tab.Subl) 0.4 mg SUBLINGUAL Q5M PRN PRN Reason: chest pain Omeprazole (Omeprazole 20 Mg Capsule.Dr) 20 mg PO DAILY@0630 [facility] Last Admin: 04/24/23 05:40 Dose: 20 mg Documented By: MICHELLE Ondansetron HCl (Ondansetron Hcl 4 Mg/2 Ml Vial) 4 mg IVPUSH Q8H PRN PRN Reason: Nausea and Vomiting Last Admin: 04/22/23 11:52 Dose: 4 mg Documented By: ALBERTO Polyethyl Glycol/Propylene Glycol (Propylene Glycol/Peg 400 Gel Eye Drops 10ml) 2 drop EYE-BOTH TID [facility] Last Admin: 04/24/23 09:40 Dose: 2 drop Documented By: MICKY Polyethylene Glycol (Polyethylene Glycol 3350 17 Gm Powd.Pack) 17 gm PO DAILY [facility] Last Admin: 04/24/23 09:23 Dose: 17 gm Documented By: MICKY Senna (Sennosides 8.6 Mg Tablet) 17.2 mg PO DAILY [facility] Last Admin: 04/24/23 09:24 Dose: 17.2 mg Documented By: MICKY Sodium Chloride (0.9 % Sodium Chloride Flush 3 Ml Syringe) 3 ml IVFLUSH QSHIFT [facility] Last Admin: 04/24/23 09:41 Dose: 3 ml Documented By: MICKY Sodium Zirconium Cyclosilicate (Sodium Zirconium Cyclosilicate 10 Gm Powd.Pack) 10 gm PO MoWeFr@0900 [facility] Last Admin: 04/23/23 08:06 Dose: 10 gm Documented By: THOMAS Labs 04/24/23 05:37 04/24/23 05:37 Labs: Laboratory Results - last 24 hr 04/23/23 04/23/23 04/24/23 16:29 20:11 05:37 MCV 96.8 MCH 29.7 MCHC 30.7 L RDW 14.3 Plt Count 343 MPV 11.3 Immature Gran % (Auto) 0.5 H Neut % (Auto) 65.9 Lymph % (Auto) 15.1 L [place] % (Auto) 11.0 Eos % (Auto) 7.1 H Baso % (Auto) 0.4 Lymph # (Auto) 1.5 [place] # (Auto) 1.1 Eos # (Auto) 0.7 H Baso # (Auto) 0.0 Abs Immat Gran (auto) 0.05 H Absolute Neuts (auto) 6.6 Absolute Nucleated RBC 0.000 Nucleated RBC % (auto) 0.0 Anion Gap 14 Estim Creat Clear Calc 34.8 Estimated GFR 27 POC Glucose 180 H 165 H Fasting Glucose 184 H Calcium 8.9 Total Bilirubin 0.2 AST 22 ALT 6 Alkaline Phosphatase 111 Total Protein 6.6 Albumin 2.5 L 04/24/23 04/24/23 07:21 11:01 MCV MCH MCHC RDW Plt Count MPV Immature Gran % (Auto) Neut % (Auto) Lymph % (Auto) [place] % (Auto) Eos % (Auto) Baso % (Auto) Lymph # (Auto) [place] # (Auto) Eos # (Auto) Baso # (Auto) Abs Immat Gran (auto) Absolute Neuts (auto) Absolute Nucleated RBC Nucleated RBC % (auto) Anion Gap Estim Creat Clear Calc Estimated GFR POC Glucose 162 H 201 H Fasting Glucose Calcium Total Bilirubin AST ALT Alkaline Phosphatase Total Protein Albumin Assessment and Plan (1) Incarcerated ventral hernia: Status: Acute (2) CKD (chronic kidney disease) stage 4, GFR 15-29 ml/min: Status: Acute Plan 72 year old legally blind and obese (BMI 41.2) white female with past medical history of IBS (with constipation), CAD, T2DM (on Insulin), hypertension and s/p left foot amputation here with nausea and vomiting status post exploratory lap with reduction of incarcerated hernia. Tolerating diet; positive BMs 1.Small-bowel obstruction with incarcerated incisional and ventral hernia -tolerating advancement of diet; positive BMs -okay for SNF.... Authorization pending 2.Hyperkalemia -Resolved with loklema 3.Acute renal failure -Back to baseline 4.Citrobacter Freundii UTI -completed 6 days of Rocephin 5.Type 2 diabetes mellitus -acceptable control on current therapies -lispro correctional scale Heparin Full Code DISPO plan for rehab when medically clear Requires ongoing hospitalization pending authorization for short-term rehab Quality Stroke Does the patient have a stroke diagnosis?: No VTE Prior VTE?: No VTE Risk Level:: Medical - moderate - high VTE Device Contraindication: Treatment Not Indicated VTE Drug Contraindication: N/A - Med Ordered
[2023-04-24 15:29] VITALS: BP 138/58; PULSE 68; RESP 20; TEMP 37.1; O2SAT 93
[2023-04-24 16:15] LABS: Glucose, Whole Blood 205 mg/dL (60-115)
[2023-04-24] MEDS: cefTRIAXone sodium 1 GM in 0.9 % Sodium Chloride 50 ML IV (17:58)
[2023-04-24 20:00] VITALS: BP 159/72; PULSE 59; RESP 18; TEMP 36.9; O2SAT 93
[2023-04-24 21:12] LABS: Glucose, Whole Blood 200 mg/dL (60-115)
[2023-04-24] MEDS: Insulin Glargine,Hum.rec.anlog 100 UNIT/ML 10 ML VIAL 30 UNIT SUBCUT (22:31)
[2023-04-25 00:10] VITALS: BP 148/74; PULSE 61; RESP 18; TEMP 36.2; O2SAT 95
[2023-04-25] MEDS: Omeprazole 20 MG CAPSULE.DR PO (05:37)
[2023-04-25] MEDS: Heparin Sodium,Porcine 5,000 UNIT/ML VIAL 5000 UNIT SUBCUT ×2 (05:38→12:04)
[2023-04-25 06:51] LABS: Alanine Aminotransferase 8 U/L (0-31); Albumin Level 2.4 g/dL (3.5-5.0); Alkaline Phosphatase 108 U/L (39-117); Anion Gap 9 (12-20); Aspartate Amino Transferase 23 U/L (5-31); Bilirubin Total 0.2 mg/dL (0.0-1.0); Blood Urea Nitrogen 63 mg/dL (9-16); Calcium 8.3 mg/dL (8.4-10.2); Carbon Dioxide 28 mmol/L (22-29); Chloride 107 mmol/L (96-108); Creatinine Clr Calc Pharmacy 34.6; Estimated Glomerular Filt Rate 26; Glucose Fasting 198 mg/dL (60-99); Potassium 4.8 mmol/L (3.3-5.1); Sodium 139 mmol/L (135-145); Total Protein 6.2 g/dL (6.5-8.0)
[2023-04-25 07:34] VITALS: BP 153/74; PULSE 62; RESP 20; TEMP 36.5; O2SAT 95
[2023-04-25 07:57] LABS: Glucose, Whole Blood 168 mg/dL (60-115)
[2023-04-25] MEDS: Insulin Lispro 100 UNIT/ML 3 ML VIAL SUBCUT ×2 (08:26→12:04)
[2023-04-25] MEDS: 0.9 % Sodium Chloride Flush 3 ML SYRINGE IVFLUSH (08:26)
[2023-04-25] MEDS: carvediloL 6.25 MG TABLET PO (08:32)
[2023-04-25] MEDS: Propylene Glycol/PEG 400 Gel Eye Drops 10ML 2 DROP EYE-BOTH ×2 (08:32→15:47)
[2023-04-25] MEDS: Aspirin Enteric Coated 81 MG TABLET.DR PO (08:32)
[2023-04-25] MEDS: Gabapentin 300 MG CAPSULE PO ×2 (08:32→15:46)
[2023-04-25] MEDS: amLODIPine Besylate 2.5 MG TABLET PO (08:32)
[2023-04-25] MEDS: Atorvastatin Calcium 80 MG TABLET PO (08:32)
[2023-04-25] MEDS: Isosorbide Mononitrate 60 MG TAB.ER.24H PO (08:32)
[2023-04-25] MEDS: Acetaminophen 325 MG TABLET 975 MG PO ×2 (08:35→15:46)
--- NOTE | 2023-04-25 09:04 | MHC.CM.PN ---
Per MD patient is medically cleared for DC to STR at [facility]. BLS transport is booked for 4pm. MD CORAL, patient and facility aware.
[2023-04-25 11:08] LABS: Glucose, Whole Blood 221 mg/dL (60-115)
--- NOTE | 2023-04-25 11:38 | PM.DS ---
DS: Providers Provider Date of Service: 04/25/23 Date of admission: 04/12/23 20:29 Date of discharge: 04/25/23 Primary care physician: Herminia Schreiber MD Consults: 04/13/23 02:05 Consult to General Surgery Routine Consulting Provider: [facility] Reason for consultation: Abdominal pain Has provider been notified: No 04/14/23 08:32 Consult to Nephrology Routine Consulting Provider: [facility] Reason for consultation: ckd/hyperkalemia 04/14/23 19:56 Consult to Wound Care Routine Reason for consultation: See shift assessment from 1600 04/14- tons of skin stuff DS: Diagnosis Discharge Diagnosis (1) Incarcerated ventral hernia: Status: Acute (2) CKD (chronic kidney disease) stage 4, GFR 15-29 ml/min: Status: Acute DS: Summary Hospital Course Hospital Course: 72 year old legally blind and obese (BMI 41.2) white female with past medical history of IBS (with constipation), CAD, T2DM (on Insulin), hypertension and s/p left foot amputation who presented to the emergency room earlier in the day complaining of severe generalized abdominal pain that started a last night with associated multiple episodes of non-projectile, non-bloody emesis. The onset of her symptoms was spontaneous. She denies any recent travel, sick contacts or eating outside. She has had no diarrhea and is instead she is constipated. Initial evaluation in the emergency room revealed elevated blood pressure and initial lab work done was notable for worsening renal insufficiency with a serum creatinine of 2.33 (up from 1.99 a year ago), hyperkalemia with a serum potassium of 6.2 mmol/L, elevated WBC count of 14.9 k/mm3, and elevated initial HSTnI at 41.9 ng/L. She however has no chest pain and initial EKG done did not reveal any acute ischemic changes (it showed normal sinus rhythm at 78 bpm with first degree heart block and isolated [address]-segment elevation in V1). Urinalysis was ordered but she has yet to make urine despite receiving a liter of IV fluids. CT scan was obtained which showed multiple ventral hernias with one ventral hernia containing small bowel with a relative transition point from mildly distended to decompressed distal ileum. Hospital Course Patient admitted to general medical floor and seen in consultation by surgery. On 04/13/2023 she underwent an exploratory laparotomy with reduction of incarcerated hernia partial amputation of omentum enterolysis and repair of incisional hernia. Postoperative course was complicated by acute renal failure which Nephrology felt was likely secondary to volume and low-flow. With volume the creatinine has now returned to normal. She continued to progress slowly however did not have a bowel movement until approximately 3 days prior to discharge. At this time her pain is essentially resolved and she is having normal bowel movements. Discussed with surgery and at this time she is medically acceptable to transfer [facility]. Time Attestation Discharge coordination time: Greater than 30 minutes Quality: Safe Use of Opioids Does Pt have an Active Cancer Diagnosis on the Problem List?: No Quality: Stroke Does the patient have a stroke diagnosis?: No Physical Exam Vital Signs: Vital Signs: Last Vital Signs Temp 97.7 F 04/25/23 07:34 Pulse 62 04/25/23 07:34 Resp 20 04/25/23 07:34 BP 153/74 H 04/25/23 07:34 Pulse Ox 95 04/25/23 07:34 O2 Del Method Room Air 04/25/23 07:34 O2 Flow Rate 2 04/22/23 19:00 Oxygen Flow Rate 2 04/15/23 14:00 BMI result Body Mass Index 41.2 Const: Other: Awake alert no acute distress Resp: Other: Clear to auscultation bilaterally no rales rhonchi wheezes Cardio: Other: No S4; positive S1-S2; no S3 murmurs rubs or gallops GI: Other: Soft nontender nondistended normoactive bowel sounds Extrem: Other: No edema bilaterally DS: Data Data Completed and Pending Completed studies during hospitalization [Text1]: Pending at discharge 04/13/23 13:16 Surgical [PTH] Routine Labs on day of discharge: Laboratory Results - last 24 hr 04/24/23 04/24/23 04/25/23 16:02 21:04 05:24 Hold Purple Top SEE NOTE Sodium 139 Potassium 4.8 Chloride 107 Carbon Dioxide 28 Anion Gap 9 L BUN 63 H Creatinine 1.87 H Estim Creat Clear Calc 34.6 Estimated GFR 26 POC Glucose 205 H 200 H Fasting Glucose 198 H Calcium 8.3 L D Total Bilirubin 0.2 AST 23 ALT 8 Alkaline Phosphatase 108 Total Protein 6.2 L Albumin 2.4 L 04/25/23 04/25/23 07:35 10:59 Hold Purple Top Sodium Potassium Chloride Carbon Dioxide Anion Gap BUN Creatinine Estim Creat Clear Calc Estimated GFR POC Glucose 168 H 221 H Fasting Glucose Calcium Total Bilirubin AST ALT Alkaline Phosphatase Total Protein Albumin Discharge Plan Discharge Anticipated Discharge Date/Time: 04/25/23 11:33 Patient Disposition: Xfer Inpatient Rehab Fac Discharge Diagnosis: Incarcerated ventral hernia Referrals: Codey Hwang MD [Physician] - 1 Week Delano Serrato MD [Physician] - 1 Week Discharge Medications: New carvedilol 6.25 mg Tablet 6.25 mg PO BID Qty: 60 0RF Protocol: Hold for SBP/HR < HOLD for SBP < : 90 HOLD for HR < : 60 amlodipine 2.5 mg Tablet 2.5 mg PO DAILY Qty: 60 0RF Protocol: Hold for SBP< HOLD for SBP < : 90 Continued isosorbide mononitrate 60 mg tablet extended release 24 hr 60 mg PO DAILY Qty: 90 3RF metoprolol tartrate 25 mg tablet 25 mg PO BID 90 Days Qty: 180 3RF nitroglycerin 0.4 mg tablet, sublingual 0.4 mg sublingual Q5M PRN (Reason: chest pain) 30 Days Qty: 25 1RF Rx Instructions: do not exceed 3 doses per episode polyethylene glycol 3350 17 gram Powder In Packet 17 g PO DAILY PRN (Reason: Constipation) Qty: 15 0RF atorvastatin 80 mg tablet 80 mg PO DAILY methenamine hippurate 1 gram tablet 1 g PO DAILY Trulicity 0.75 mg/0.5 mL pen injector 0.75 mg subcut ABRAMS Toujeo Max U-300 SoloStar 300 unit/mL (3 mL) Insulin Pen 66 unit SUBCUT BEDTIME Lokelma 10 gram Powder In Packet 10 g PO MOWEFR Probiotic 1 cap PO DAILY insulin lispro [Humalog KwikPen Insulin] 100 unit/mL insulin pen 0 sliding scale dose subcut TIDAC Protocol: Insulin Correction Scale Less than or equal to 110 ---- Give (units): 0 111 to 150 Give (units): 0 151 to 200 Give (units): 2 201 to 250 Give (units): 4 251 to 300 Give (units): 6 301 to 350 Give (units): 8 Greater than 350 Give (units): 10 Call MD if Blood Glucose > : 350 gabapentin 300 mg capsule 300 mg PO TID omeprazole 20 mg capsule,delayed release(DR/EC) 20 mg PO DAILY aspirin [Adult Low Dose Aspirin] 81 mg tablet,delayed release (DR/EC) 81 mg PO DAILY Qty: 90 3RF Discharge Orders: Discharge Order (Routine); Ordered 04/25/23 Ordered By: Sawyer Crain Diet: Advance to usual diet Activity on Discharge: As tolerated Stand Alone Forms: Patient Portal Discharge page Activity Restrictions/Additional Instructions: May shower. No strenuous activities. Ice pack to incision periodically. Abdominal wall binder Care Plan Goals: Continue all meds as ordered Health Concerns: Need to follow-up with Dr. Bro in 4-6 weeks Plan of Treatment: Continue aggressive bowel regimen Assessment: See discharge summary
[2023-04-25 15:27] VITALS: BP 148/66; PULSE 66; RESP 20; TEMP 36.2; O2SAT 94
== END 2023-04-25 16:18 | DRG 353 ==
LOC: HO.ED 19:35 → HO.EDOVER 20:51 → HO.IMC 04-13 18:40 → HO.S3 04-16 13:56
PROVIDERS: Internal Medicine; Nurse Practitioner Acute Care; Physician Assistant; Physician Assistant Medical; Physician Assistant Surgical; Surgery; Admitting Provider Internal Medicine; Emergency Provider Emergency Medicine; PCP Pediatrics Adolescent Medicine; Visit Provider Hospitalist
PROC: 0WUF0JZ Supplement Abdominal Wall with Synthetic Substitute, Open Approach (ICD-10-PCS; principal; 2023-04-13 12:00)
DX: K43.0 Incisional hernia with obstruction, without gangrene (principal); N17.0 Acute kidney failure with tubular necrosis; E87.20 Acidosis, unspecified; N18.4 Chronic kidney disease, stage 4 (severe); N39.0 Urinary tract infection, site not specified; Z68.41 Body mass index [BMI] 40.0-44.9, adult; J98.11 Atelectasis; I25.10 Atherosclerotic heart disease of native coronary artery without angina pectoris; E86.0 Dehydration; E87.5 Hyperkalemia; I12.9 Hypertensive chronic kidney disease with stage 1 through stage 4 chronic kidney disease, or unspecified chronic kidney disease; E66.01 Morbid (severe) obesity due to excess calories; Z71.3 Dietary counseling and surveillance; H54.8 Legal blindness, as defined in USA; K59.00 Constipation, unspecified; E11.22 Type 2 diabetes mellitus with diabetic chronic kidney disease; Z20.822 Contact with and (suspected) exposure to COVID-19; Z91.041 Radiographic dye allergy status; Z88.2 Allergy status to sulfonamides; Z79.82 Long term (current) use of aspirin; Z79.4 Long term (current) use of insulin; Z79.899 Other long term (current) drug therapy
CPT/HCPCS: 0241U; 36415; 71045; 74018; 74176; 80048; 80053; 81001; 82947; 83605; 83735; 84132; 84484; 85025; 85027; 87086; 87088; 87186; 88304; 93005; 94640; 97163; 97167; 97530; 99024; 99285; C1758; C1781; J0131; J0690; J0696; J1100; J1644; J1940; J2060; J2250; J2270; J2405; J2550; J2704; J2795; J3010

== ENCOUNTER → 2023-04-12 11:56 | Outpatient (BNV) | payer OTHER, SELFPAY | PROVIDERS: Emergency Provider Emergency Medicine; Visit Provider Internal Medicine Cardiovascular Disease | DX: I44.0 Atrioventricular block, first degree (principal); R94.31 Abnormal electrocardiogram [ECG] [EKG] | CPT/HCPCS: 93010 ==

== ENCOUNTER → 2023-04-12 20:29 | Outpatient (BNV) | payer OTHER, SELFPAY | PROVIDERS: Admitting Provider Internal Medicine; Emergency Provider Emergency Medicine; PCP Internal Medicine; Visit Provider Internal Medicine | DX: N17.9 Acute kidney failure, unspecified (principal); E87.5 Hyperkalemia; R10.84 Generalized abdominal pain; E11.8 Type 2 diabetes mellitus with unspecified complications; I10 Essential (primary) hypertension; D72.823 Leukemoid reaction; R79.89 Other specified abnormal findings of blood chemistry; K56.609 Unspecified intestinal obstruction, unspecified as to partial versus complete obstruction; K43.6 Other and unspecified ventral hernia with obstruction, without gangrene | CPT/HCPCS: 99223; 99231; 99232; 99239 ==

== ENCOUNTER → 2023-04-12 20:29 | Outpatient (BNV) | payer OTHER, SELFPAY | PROVIDERS: Admitting Provider Internal Medicine; Emergency Provider Emergency Medicine; PCP Pediatrics Adolescent Medicine; Visit Provider Internal Medicine Nephrology | DX: N17.9 Acute kidney failure, unspecified (principal); N18.4 Chronic kidney disease, stage 4 (severe) | CPT/HCPCS: 99223; 99232 ==

== ENCOUNTER → 2023-04-12 20:29 | Outpatient (BNV) | payer OTHER, SELFPAY | PROVIDERS: Admitting Provider Internal Medicine; Emergency Provider Emergency Medicine; PCP Internal Medicine; Visit Provider Surgery | DX: K43.0 Incisional hernia with obstruction, without gangrene (principal) | CPT/HCPCS: 49594; 99222; 99499 ==

== ENCOUNTER 2023-05-26 14:38 | Outpatient (AMB) | payer OTHER, SELFPAY ==
[2023-05-26 14:49] VITALS: BP 152/88; PULSE 72
--- NOTE | 2023-05-26 14:49 | A.OFFVIS_ITS ---
Intake Vital Signs 05/26/23 14:49 BP 152/88 H Blood Pressure Location Rt brachial Position Sitting Pulse 72 Intake Visit Reasons: S/p exp lap, repair incisional hernia Intake Note: Patient here s/p exp lap, repair incisional hernia on 04-13-23. Reports incisions healing well. Patient c/o: Rt side of abdomen feels swollen Casing In Line Feeder Required: No Accompanied by: friend Chante Allergies Sulfa (Sulfonamide Antibiotics) Allergy (Mild, Verified 05/26/23 14:51) LOOPY, memory contrast dye Adverse Reaction (Mild, Uncoded 05/26/23 14:51) itchy HPI HPI Comments History of Present Illness Details A few weeks status post repair of incarcerated incisional hernia acutely. Patient has had a rehab facility. She has tolerating a diet. She takes stool softeners and supplements because of chronic constipation issues. She is minimal incisional discomfort. [facility] Medical History Type 2 diabetes mellitus with unspecified complications Essential hypertension Hx of myocardial infarction Broken ankle Complete amputation of left foot CKD (chronic kidney disease) stage 4, GFR 15-29 ml/min CKD (chronic kidney disease) Acute and subacute ischemic heart disease Acute hyperglycemia Amputation of left foot Kidney disease High cholesterol CAD (coronary artery disease) HTN (hypertension) Diabetes Surgical History History of cholecystectomy History of gastric stapling History of lumpectomy Family History Mother Diabetes Father Diabetes Social History Household Members: None Housing: Apartment Do you presently have visiting nurse or other home services: Yes (Visiting nurse) Alcohol intake: never Patient Tobacco Use Status: Never used Tobacco Advance Directives Date on File: 01/28/21 service: No Physical Exam Vital Signs: Last Vital Signs Pulse 72 05/26/23 14:49 BP 152/88 H 05/26/23 14:49 GI Other: Corpulent abdomen. Abdomen is soft incision clean dry and intact. Superficial eschars which will eventually slough off. No evidence of any infection. Assessment & Plan Assessment & Plan (1) Status post repair of ventral hernia: Code(s): Z98.890 - Other specified postprocedural states; Z87.19 - Personal history of other diseases of the digestive system Plan From a surgical perspective, patient is stable. She is having urologic issues which are being followed up with Urology consult next week. All questions answered. Patient will follow-up with me p.r.n.. Coding Level of Care Code Global (43288) Diagnoses Status post repair of ventral hernia Z98.890; Z87.19
== END 2023-05-26 14:57 | disposition home or self-care (01) ==
PROVIDERS: PCP Pediatrics Adolescent Medicine; Visit Provider Surgery
DX: Z98.890 Other specified postprocedural states (principal); Z87.19 Personal history of other diseases of the digestive system
CPT/HCPCS: 99212

== ENCOUNTER → 2023-05-26 14:38 | Outpatient (BNVA) | payer OTHER, SELFPAY | PROVIDERS: PCP Pediatrics Adolescent Medicine; Visit Provider Surgery ==

== ENCOUNTER 2023-06-14 13:27 | Outpatient (AMB) | payer OTHER, SELFPAY ==
--- NOTE | 2023-06-14 13:29 | MHC.OFFVIS ---
Intake Vital Signs 06/14/23 13:33 BP 152/88 H Blood Pressure Location Rt brachial Position Sitting Pulse 72 Intake Visit Reasons: wound check Intake Note: Patient here today worried about infection at surgery site on abd. Patient w/hx of ventral hernia repair on 04-13-23. Patient c/o: redness, oozing, hot to touch. Patient has been applying warm washcloth. Food And Nutrition Supervisor Required: No Accompanied by: Brother Allergies Sulfa (Sulfonamide Antibiotics) Allergy (Mild, Verified 06/14/23 13:34) LOOPY, memory contrast dye Adverse Reaction (Mild, Uncoded 06/14/23 13:34) itchy HPI HPI Comments History of Present Illness Details Patient is approximately 8 weeks postop for incarcerated ventral hernia repair. She presents here , with her brother, with a few days' history of upper part of her incision redness and discomfort. In the meantime, she has been tolerating her diet although she is history of constipation which has persisted. She is being followed by vascular for a decubitus ulcer for which he was prescribed antibiotics. Patient is currently at home after an extended stay at an [facility]. Patient is well known to me. [facility] Medical History Type 2 diabetes mellitus with unspecified complications Essential hypertension Hx of myocardial infarction Broken ankle Complete amputation of left foot CKD (chronic kidney disease) stage 4, GFR 15-29 ml/min CKD (chronic kidney disease) Acute and subacute ischemic heart disease Acute hyperglycemia Amputation of left foot Kidney disease High cholesterol CAD (coronary artery disease) HTN (hypertension) Diabetes Surgical History History of cholecystectomy History of gastric stapling History of lumpectomy Family History Mother Diabetes Father Diabetes Social History Household Members: None Housing: Apartment Do you presently have visiting nurse or other home services: Yes (Visiting nurse) Alcohol intake: never Patient Tobacco Use Status: Never used Tobacco Advance Directives Date on File: 01/28/21 service: No Physical Exam Vital Signs: Last Vital Signs Pulse 72 06/14/23 13:33 BP 152/88 H 06/14/23 13:33 GI Other: Massively corpulent abdomen. Upper part of the incision demonstrates some erythema. Lower part incision clean dry and intact healing uneventfully. Wound was initially probed and then opened where a superficial postop wound infection was demonstrated with serosanguineous and purulent drainage retrieved. Cultures obtained. Wound was irrigated, and packed and dressing applied. Patient tolerated procedure well. Assessment & Plan Assessment & Plan (1) Superficial postoperative wound infection: Code(s): T81.49XA - Infection following a procedure, other surgical site, initial encounter Plan Patient is continue antibiotics which were prescribed to her by vascular. We will arrange through [place] either office or [facility] packing changes. Patient will see me as directed or p.r.n.. All questions answered. The current plan is to see how the patient does. Down the road, she may well require mesh will removal. Only time will tell. Orders: Orders Routine Culture w Gram Stain Today L02.211 - Cutaneous abscess of abdominal wall Coding Level of Care Code Global (22950) Diagnoses Superficial postoperative wound infection T81.49XA
[2023-06-14 13:33] VITALS: BP 152/88; PULSE 72
== END 2023-06-14 13:56 | disposition home or self-care (01) ==
PROVIDERS: PCP Pediatrics Adolescent Medicine; Visit Provider Surgery
DX: T81.49XA Infection following a procedure, other surgical site, initial encounter (principal)
CPT/HCPCS: 99213

== ENCOUNTER 2023-06-14 13:27 | Outpatient (REF) | payer OTHER, SELFPAY | END 2023-06-14 13:28 | disposition home or self-care (01) | LOC: HO.LAB 13:27 | PROVIDERS: PCP Pediatrics Adolescent Medicine; Visit Provider Surgery | DX: L02.211 Cutaneous abscess of abdominal wall (principal) | CPT/HCPCS: 87070; 87077; 87186; 87205 ==

== ENCOUNTER 2023-06-16 14:45 | Outpatient (AMB) | payer OTHER, SELFPAY ==
--- NOTE | 2023-06-16 15:04 | HO.NEPHOV_ITS ---
HPI HPI Comments History of Present Illness Details . Caty is a elderly woman with a history of longstanding diabetes mellitus and hypertension complicated by chronic kidney disease. Baseline creatinine is around 1.7-1.8 mg/dL. She has had recurrent episodes of acute kidney injury. She has had a foot infection for which she was treated with IV antibiotics. History of recurrent UTIs. Recently she had abdominal surgery followed by an infected wound again she was treated with IV antibiotics and currently on doxycycline 100 mg b.i.d.. She has a visiting nurse coming in every day for wound care. History of recurrent hyperkalemia and currently on Lokelma 3 times a week. She is accompanied by her brother who also happens to be my patient. [facility] Medical History (Updated 06/16/23 @ 15:34 by Julio C Bro MD) Strangulated hernia of abdominal wall (~04/2023) Type 2 diabetes mellitus with unspecified complications Essential hypertension Hx of myocardial infarction Broken ankle Complete amputation of left foot CKD (chronic kidney disease) stage 4, GFR 15-29 ml/min CKD (chronic kidney disease) Acute and subacute ischemic heart disease Acute hyperglycemia Amputation of left foot Kidney disease High cholesterol CAD (coronary artery disease) HTN (hypertension) Diabetes Surgical History History of cholecystectomy History of gastric stapling History of lumpectomy Family History Mother Diabetes Father Diabetes Social History Household Members: None Housing: Apartment Do you presently have visiting nurse or other home services: Yes (Visiting nurse) Alcohol intake: never Patient Tobacco Use Status: Never used Tobacco Advance Directives Date on File: 01/28/21 service: No Vital Signs 06/16/23 15:08 Pulse 73 Pulse Source Pulse Oximeter Pulse Oximetry (%) 94 Oxygen Delivery Method Room Air Physical Exam Vital Signs: Last Vital Signs Pulse 73 06/16/23 15:08 Pulse Ox 94 06/16/23 15:08 Oxygen Delivery Method Room Air 06/16/23 15:08 In a wheelchair Const General: comfortable Nutritional Appearance: well nourished Orientation/consciousness: patient oriented x3 HEENT Head: No normal to inspection Mouth: moist mucous membranes Neck Neck: Yes supple and Yes no JVD Resp Auscultation: clear to auscultation bilaterally, no rales and rub present Cardio Jugular venous distension: no JVD Palpation: no palpable S3 and no palpable S4 Heart sounds: no rubs GI Palpation (GI): Soft to palpation and nontender Percussion: No Fluid wave present General: Yes no CVA tenderness Back/Spine/Pelvis Back: no CVA tenderness Skin General skin exam: no rashes or lesions noted Neuro General: patient oriented x3 Extrem General: No clubbing Assessment & Plan Assessment & Plan (1) CKD (chronic kidney disease): Comment: Due to longstanding diabetes mellitus hypertension in the setting obesity. Code(s): N18.9 - Chronic kidney disease, unspecified Plan: Renal function close to baseline Goal is to slow the progression of renal disease Continue to avoid nephrotoxins including NSAIDs. Keep intake more than output Maintain blood pressure less than 130/80 Maintain A1c less than 7% Discussed weight loss Fluid status is acceptable (2) Hyperkalemia: Comment: Secondary to CKD Code(s): E87.5 - Hyperkalemia Plan: Stay on low-potassium diet kelms 3 times a week Orders: Orders Basic Metabolic Panel 4 Months E11.22 - Type 2 diabetes mellitus with diabetic chronic kidney disease, E87.5 - Hyperkalemia, N18.9 - Chronic kidney disease, unspecified Complete Blood Count Auto Diff 4 Months E11.22 - Type 2 diabetes mellitus with diabetic chronic kidney disease, E87.5 - Hyperkalemia, N18.30 - Chronic kidney disease, stage 3 unspecified, N18.9 - Chronic kidney disease, unspecified Vitamin D 25-OH (D2 and D3) 4 Months E11.22 - Type 2 diabetes mellitus with diabetic chronic kidney disease, E87.5 - Hyperkalemia, N18.9 - Chronic kidney disease, unspecified Phosphorus 4 Months E11.22 - Type 2 diabetes mellitus with diabetic chronic kidney disease, E87.5 - Hyperkalemia, N18.9 - Chronic kidney disease, unspecified Coding Level of Care Code Est Pt Level 4 (86378) Diagnoses CKD (chronic kidney disease) N18.9 Hyperkalemia E87.5 Results Reviewed Nephrology Results: Hgb 11.2 g/dl (12.0-16.0) L 04/24/23 WBC 10.1 X10*3/uL (4.8-10.8) 04/24/23 Plt Count 343 X10*3/uL (160-400) 04/24/23 Sodium 139 mmol/L (135-145) 04/25/23 Potassium 4.8 mmol/L (3.3-5.1) 04/25/23 Chloride 107 mmol/L (96-108) 04/25/23 Carbon Dioxide 28 mmol/L (22-29) 04/25/23 BUN 63 mg/dL (9-16) H 04/25/23 Creatinine 1.87 mg/dL (0.5-1.4) H 04/25/23 Calcium 8.3 mg/dL (8.4-10.2) L 04/25/23 Urine Protein 100 (2+) mg/dL (Neg-Trace) H 04/12/23
[2023-06-16 15:08] VITALS: PULSE 73; O2SAT 94
== END 2023-06-16 15:32 | disposition home or self-care (01) ==
PROVIDERS: PCP Pediatrics Adolescent Medicine; Visit Provider Internal Medicine Hypertension Specialist
DX: N18.9 Chronic kidney disease, unspecified (principal); E87.5 Hyperkalemia
CPT/HCPCS: 99214

== ENCOUNTER → 2023-06-16 14:45 | Outpatient (BNVA) | payer OTHER, SELFPAY | PROVIDERS: PCP Pediatrics Adolescent Medicine; Visit Provider Internal Medicine Hypertension Specialist ==

== ENCOUNTER 2023-08-09 08:53 | Outpatient (AMB) | payer OTHER, SELFPAY ==
--- NOTE | 2023-08-09 09:13 | MHC.OFFVIS ---
Vital Signs 08/09/23 09:14 Height 5 ft 6 in BP 140/62 H Blood Pressure Location Rt brachial Position Sitting Pulse 57 Intake Visit Reasons: 6 mth f/up Outreach Team Member Required: No Pulp Cooker: Pulp Cooker Present Allergies Sulfa (Sulfonamide Antibiotics) Allergy (Mild, Verified 08/09/23 09:17) LOOPY, memory contrast dye Adverse Reaction (Mild, Uncoded 08/09/23 09:17) itchy Medication List - Last Reconciled 08/09/23 by DANIELLA Qureshi aspirin (Adult Low Dose Aspirin) 81 mg PO DAILY atorvastatin 80 mg PO DAILY doxycycline monohydrate 100 mg PO BID dulaglutide (Trulicity) 0.75 mg subcut ABRAMS gabapentin 300 mg PO TID insulin glargine U-300 conc (Toujeo Max U-300 SoloStar) 66 units subcut BEDTIME insulin lispro (Humalog KwikPen (U-100) Insulin) 0 sliding scale doses See Protocol subcut TIDAC methenamine hippurate 1 g PO DAILY metoprolol tartrate 25 mg PO BID 90 days nitroglycerin 0.4 mg sublingual Q5M PRN 90 days omeprazole 20 mg PO DAILY polyethylene glycol 3350 17 grams PO DAILY PRN [Probiotic 1 cap PO DAILY] sodium zirconium cyclosilicate (Lokelma) 10 grams PO MOWEFR HPI HPI 6 mth f/up: Details: Kelsey is a 72-year-old female with past medical history of hypertension, hyperlipidemia, diabetes, obesity, chronic kidney disease, carotid endarterectomy, CAD with RCA and D1 stent, 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 Today she reports she has been doing well since her hospital discharge. She currently resides at a rehab facility and is hoping to go home in a few weeks. She states the day that she had the NSTEMI she felt like an elephant was sitting on her chest. She has never had that type of feeling before. She has not had recurrent chest discomfort since that time. Her breathing has been comfortable. No PND, orthopnea. She does get some swelling in her lower extremities which is not unusual. She sits in a wheelchair most of the time. She is nonambulatory due to a left transmetatarsal amp with current heel ulcer and right foot issues. She has notice some lightheadedness and low blood pressure readings after eating a large lunch at the rehab facility. She has not had any full presyncope, syncope or falls. In the last few days she has been eating less at lunch and finds that this helps her symptoms. She has been increasing her fluid intake as well. is present. [facility] Medical History (Updated 08/09/23 @ 10:59 by Kristen Joyce NP-C) Hernia Strangulated hernia of abdominal wall (~04/2023) Type 2 diabetes mellitus with unspecified complications Essential hypertension Hx of myocardial infarction Broken ankle Complete amputation of left foot CKD (chronic kidney disease) stage 4, GFR 15-29 ml/min CKD (chronic kidney disease) Acute and subacute ischemic heart disease Acute hyperglycemia Amputation of left foot Kidney disease High cholesterol CAD (coronary artery disease) HTN (hypertension) Diabetes Surgical History (Updated 08/09/23 @ 11:00 by BILLIE QureshiC) History of cholecystectomy History of gastric stapling History of lumpectomy Family History Mother Diabetes Father Diabetes Social History Household Members: None Housing: Apartment Do you presently have visiting nurse or other home services: Yes (Visiting nurse) Alcohol intake: never Patient Tobacco Use Status: Never used Tobacco Advance Directives Date on File: 01/28/21 service: No Review of Systems Const All systems reviewed & are unremarkable except as noted in HPI and below ENT Denies dizziness Card Denies chest pain, Denies chest pain at rest, Denies chest pain with activity, Denies rapid heart rate, Denies pedal edema, Denies edema, Denies leg edema, Denies lightheadedness, Denies palpitations, Denies dyspnea, Denies dyspnea on exertion and Denies orthopnea Resp Denies cough, Denies dyspnea and Denies dyspnea on exertion GI Denies hematochezia and Denies change in stool character Musc Reports abnormal gait, Denies limited range of motion, Denies muscle cramps, Reports muscle weakness, Denies numbness, Denies radiating pain into limb, Denies stiffness and Denies tingling Neuro Reports abnormal gait, Denies dizziness, Denies numbness and Denies tingling Endo Denies palpitations Physical Exam Vital Signs: Last Vital Signs Pulse 57 08/09/23 09:14 BP 140/62 H 08/09/23 09:14 Const Other: Obese - sitting in wheelchair General: cooperative, healthy appearing, comfortable and no acute distress Orientation/consciousness: patient oriented x3 Neck Neck: Yes normal visual inspection and Yes no JVD Resp Effort & Inspection: normal respiratory effort Auscultation: clear to auscultation bilaterally, no rales and no rhonchi Cardio Jugular venous distension: no JVD Rate: regular rate Rhythm: regular rhythm Heart sounds: S1 normal heart sound present, S2 normal heart sound present, no murmurs and no rubs Neuro General: patient oriented x3 Extrem Other: transmetatarsal amputation left foot. Right foot in specially desiged boot. Psych Appearance: grossly normal Mental Status: mental status grossly normal Speech and movement: Normal speech and movement present Assessment & Plan Assessment & Plan (1) NSTEMI (non-ST elevated myocardial infarction): Code(s): I21.4 - Non-ST elevation (NSTEMI) myocardial infarction Category: Medical Plan: Recent [facility] admission for chest discomfort. She ruled in for NSTEMI. Cardiac catheterization showed 95% distal RCA stenosis. She had PCI/stent to the mid to distal RCA. She also has known TECHNICAL SERVICE SPECIALIST of the LAD with collaterals, patent stent to D1. She has not had any recurrent chest discomfort since that time. She is mostly sedentary and is currently in a rehab facility. She has an ulcer on her left heel and is hoping to restart ambulation once that has healed. Med list from the rehab facility reviewed and it does not include isosorbide. Her home med list did include isosorbide. Will have her continue on aspirin indefinitely. Continue Plavix uninterrupted for at least 1 year post stent. Continue high-dose atorvastatin. Will have her restart isosorbide 30 mg daily. She has a known TECHNICAL SERVICE SPECIALIST of the LAD and may have anginal symptoms if she becomes more ambulatory.. Signs and symptoms of angina reviewed with her in detail. She is getting physical therapy at the rehab. Will hold off on outpatient cardiac rehab. Cardiology follow-up 3-4 months, sooner if needed. (2) Atherosclerotic cardiovascular disease: Code(s): I25.10 - Atherosclerotic heart disease of [place] coronary artery without angina pectoris Category: Medical Plan: As above (3) S/P cardiac cath: Comment: 07/15/2023, proximal LAD 100% TECHNICAL SERVICE SPECIALIST, collateral from right PDA, distal RCA with prior stent to 95% stenosis, PCI to the mid to distal RCA with new YAZMIN, patent stent in D1. Code(s): Z98.890 - Other specified postprocedural states Category: Surgical Plan: As above (4) HTN (hypertension): Code(s): I10 - Essential (primary) hypertension Category: Medical Plan: Mild elevation today, 140/62. She tells me that her blood pressure is elevated more often than not. Her med list currently does not include isosorbide. Will be re adding. Continue losartan, metoprolol. (5) High cholesterol: Code(s): E78.00 - Pure hypercholesterolemia, unspecified Category: Medical Plan: [place] LDL goal less than 70. She is currently on high-dose atorvastatin. No recent lipid profile in our system. Will plan to update next visit. Plan Time spent on chart review, documentation, interview and assessment Coding Level of Care Code Est Pt Level 4 (34410) Diagnoses NSTEMI (non-ST elevated myocardial infarction) I21.4 Atherosclerotic cardiovascular disease I25.10 S/P cardiac cath Z98.890 HTN (hypertension) I10 High cholesterol E78.00 Time Spent (min) 28
[2023-08-09 09:14] VITALS: BP 140/62; PULSE 57
== END 2023-08-09 09:59 | disposition home or self-care (01) ==
PROVIDERS: PCP Internal Medicine Endocrinology, Diabetes & Metabolism; Visit Provider Nurse Practitioner Family
DX: I21.4 Non-ST elevation (NSTEMI) myocardial infarction (principal); I25.10 Atherosclerotic heart disease of native coronary artery without angina pectoris; Z98.890 Other specified postprocedural states; I10 Essential (primary) hypertension; E78.00 Pure hypercholesterolemia, unspecified
CPT/HCPCS: 99214

== ENCOUNTER → 2023-08-09 08:53 | Outpatient (BNVA) | payer OTHER, SELFPAY | PROVIDERS: PCP Internal Medicine Endocrinology, Diabetes & Metabolism; Visit Provider Nurse Practitioner Family ==

== ENCOUNTER 2023-08-31 13:53 | Outpatient (AMB) | payer OTHER, SELFPAY ==
--- NOTE | 2023-08-31 14:13 | MHC.OFFVIS ---
Intake Visit Reasons: wound check Intake Note: Patient here for wound check on abdomen. Hx incarcerated/ ventral hernia repair on 04-13-23. Patient c/o: healing improved since last visit. VNA services every other day. 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 During this interim she has had 2 cardiac events requiring angioplasty and stenting. She also has had an peripheral vascular issue with her legs. In the meantime, patient was at a rehab facility and was recently discharged home. She has VNA services providing for her umbilical wound care. Patient was tolerating a diet. She has having no GI issues or complaints. According to her nurses, her wound is almost completely healed. [facility] Medical History Hernia Strangulated hernia of abdominal wall (~04/2023) Type 2 diabetes mellitus with unspecified complications Essential hypertension Hx of myocardial infarction Broken ankle Complete amputation of left foot CKD (chronic kidney disease) stage 4, GFR 15-29 ml/min CKD (chronic kidney disease) Acute and subacute ischemic heart disease Acute hyperglycemia Amputation of left foot Kidney disease High cholesterol CAD (coronary artery disease) HTN (hypertension) Diabetes Surgical History History of cholecystectomy History of gastric stapling History of lumpectomy Family History Mother Diabetes Father Diabetes Social History Household Members: None Housing: Apartment Do you presently have visiting nurse or other home services: Yes (Visiting nurse) Alcohol intake: never Patient Tobacco Use Status: Never used Tobacco Advance Directives Date on File: 01/28/21 service: No Physical Exam GI Other: Very corpulent abdomen. Patient has approximately a Q-tip tip left of her prior open abdominal wound. No evidence of any purulence or cellulitis or abscess. Assessment & Plan Assessment & Plan (1) Status post repair of ventral hernia: Code(s): Z98.890 - Other specified postprocedural states; Z87.19 - Personal history of other diseases of the digestive system Category: Surgical (2) Visit for wound check: Code(s): Z51.89 - Encounter for other specified aftercare Category: Surgical Plan Patient is to have VNA continue local wound care and will otherwise follow-up p.r.n.. Her wound is nearly healed. Once again a longer be packed, she will not require local wound changes. All questions answered. Coding Level of Care Code Est Pt Level 3 (00772) Diagnoses Status post repair of ventral hernia Z98.890; Z87.19 Visit for wound check Z51.89
== END 2023-08-31 14:41 | disposition home or self-care (01) ==
PROVIDERS: PCP Internal Medicine Endocrinology, Diabetes & Metabolism; Visit Provider Surgery
DX: Z98.890 Other specified postprocedural states (principal); Z87.19 Personal history of other diseases of the digestive system; Z51.89 Encounter for other specified aftercare
CPT/HCPCS: 99213

== ENCOUNTER → 2023-08-31 13:53 | Outpatient (BNVA) | payer OTHER, SELFPAY | PROVIDERS: PCP Internal Medicine Endocrinology, Diabetes & Metabolism; Visit Provider Surgery ==

== ENCOUNTER 2023-10-13 10:33 | Outpatient (AMB) | payer OTHER, SELFPAY ==
[2023-10-13 10:29] VITALS: BP 122/82; PULSE 71; O2SAT 98
--- NOTE | 2023-10-13 10:29 | HO.NEPHOV_ITS ---
Vital Signs 10/13/23 10:29 Height 5 ft 6 in BP 122/82 Blood Pressure Location Rt brachial Position Sitting Pulse 71 Pulse Source Pulse Oximeter Pulse Oximetry (%) 98 Oxygen Delivery Method Room Air Intake Visit Reasons: October follow up/LVM Creative Services Specialist Required: No Accompanied by: Brother Allergies Sulfa (Sulfonamide Antibiotics) Allergy (Mild, Verified 10/13/23 10:34) LOOPY, memory contrast dye Adverse Reaction (Mild, Uncoded 08/31/23 14:17) itchy Medication List - Last Reconciled 10/13/23 by Julio C Bro MD aspirin (Adult Low Dose Aspirin) 81 mg PO DAILY atorvastatin 80 mg PO DAILY clopidogrel (Plavix) 75 mg PO DAILY dulaglutide (Trulicity) 0.75 mg subcut ABRAMS gabapentin 300 mg PO TID insulin glargine U-300 conc (Toujeo Max U-300 SoloStar) 66 units subcut BEDTIME insulin lispro (Humalog KwikPen (U-100) Insulin) 0 sliding scale doses See Protocol subcut TIDAC isosorbide mononitrate ER 30 mg PO DAILY methenamine hippurate 1 g PO DAILY metoprolol tartrate 25 mg PO BID 90 days nitroglycerin 0.4 mg sublingual Q5M PRN 90 days omeprazole 20 mg PO DAILY polyethylene glycol 3350 17 grams PO DAILY PRN [Probiotic 1 cap PO DAILY] sodium zirconium cyclosilicate (Lokelma) 10 grams PO MOWEFR HPI Comments Details: . Caty is a elderly woman with a history of longstanding diabetes mellitus and hypertension complicated by chronic kidney disease. Baseline creatinine is around 1.7-1.8 mg/dL. She has had recurrent episodes of acute kidney injury. She has had a foot infection for which she was treated with IV antibiotics. History of recurrent UTIs. Recently she had abdominal surgery followed by an infected wound again she was treated with IV antibiotics and currently on doxycycline 100 mg b.i.d.. She has a visiting nurse coming in every day for wound care. History of recurrent hyperkalemia and currently on Lokelma 3 times a week. She is accompanied by her brother who also happens to be my patient. [facility] Medical History Hernia Strangulated hernia of abdominal wall (~04/2023) Type 2 diabetes mellitus with unspecified complications Essential hypertension Hx of myocardial infarction Broken ankle Complete amputation of left foot CKD (chronic kidney disease) stage 4, GFR 15-29 ml/min CKD (chronic kidney disease) Acute and subacute ischemic heart disease Acute hyperglycemia Amputation of left foot Kidney disease High cholesterol CAD (coronary artery disease) HTN (hypertension) Diabetes Surgical History History of cholecystectomy History of gastric stapling History of lumpectomy Family History Mother Diabetes Father Diabetes Social History Household Members: None Housing: Apartment Do you presently have visiting nurse or other home services: Yes (Visiting nurse) Alcohol intake: never Patient Tobacco Use Status: Never used Tobacco Advance Directives Date on File: 01/28/21 service: No Physical Exam Vital Signs: Last Vital Signs Pulse 71 10/13/23 10:29 BP 122/82 10/13/23 10:29 Pulse Ox 98 10/13/23 10:29 Oxygen Delivery Method Room Air 10/13/23 10:29 Results Reviewed Nephrology Results: No Data to Display Assessment & Plan Assessment & Plan (1) CKD (chronic kidney disease): Comment: Due to longstanding diabetes mellitus hypertension in the setting obesity. Code(s): N18.9 - Chronic kidney disease, unspecified Category: Medical Plan: Renal function close to baseline Goal is to slow the progression of renal disease Continue to avoid nephrotoxins including NSAIDs. Keep intake more than output Maintain blood pressure less than 130/80 Maintain A1c less than 7% Discussed weight loss Fluid status is acceptable (2) Hyperkalemia: Comment: Secondary to CKD Code(s): E87.5 - Hyperkalemia Category: Medical Plan: Stay on low-potassium diet kelaz 3 times a week Coding Level of Care Code Est Pt Level 4 (94190) Diagnoses CKD (chronic kidney disease) N18.9 Hyperkalemia E87.5
== END 2023-10-13 11:19 | disposition home or self-care (01) ==
PROVIDERS: PCP Pediatrics Adolescent Medicine; Visit Provider Internal Medicine Hypertension Specialist
DX: N18.9 Chronic kidney disease, unspecified (principal); E87.5 Hyperkalemia
CPT/HCPCS: 99214

== ENCOUNTER → 2023-10-13 10:33 | Outpatient (BNVA) | payer OTHER, SELFPAY | PROVIDERS: PCP Pediatrics Adolescent Medicine; Visit Provider Internal Medicine Hypertension Specialist ==

== ENCOUNTER 2023-11-05 09:51 | Outpatient (AMB) | payer OTHER, SELFPAY ==
[2023-11-05 09:56] VITALS: BP 118/60; PULSE 86
--- NOTE | 2023-11-05 09:56 | MHC.OFFVIS ---
Vital Signs 11/05/23 09:56 Height 5 ft 6 in BMI Reason not done Patient refused/unable BP 118/60 Blood Pressure Location Lt brachial Position Sitting Pulse 86 Pulse Source Pulse Oximeter Intake Visit Reasons: 3m follow up Allergies Sulfa (Sulfonamide Antibiotics) Allergy (Mild, Verified 10/13/23 10:34) LOOPY, memory contrast dye Adverse Reaction (Mild, Uncoded 08/31/23 14:17) itchy Medication List - Last Reconciled 11/05/23 by DANIELLA Qureshi aspirin (Adult Low Dose Aspirin) 81 mg PO DAILY atorvastatin 80 mg PO DAILY clopidogrel (Plavix) 75 mg PO DAILY dulaglutide (Trulicity) 0.75 mg subcut ABRAMS gabapentin 300 mg PO TID isosorbide mononitrate ER 30 mg PO DAILY metoprolol tartrate 25 mg PO BID 90 days nitroglycerin 0.4 mg sublingual Q5M PRN 90 days omeprazole 20 mg PO DAILY polyethylene glycol 3350 17 grams PO DAILY PRN [Probiotic 1 cap PO DAILY] sodium zirconium cyclosilicate (Lokelma) 10 grams PO MOWEFR HPI HPI 3m follow up: Details: Kelsey is a 72-year-old female with past medical history of hypertension, hyperlipidemia, diabetes, obesity, chronic kidney disease, carotid endarterectomy, CAD with RCA and D1 stent, 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 Today she reports she continues to do well overall. She previous stated the day that she had the NSTEMI she felt like an elephant was sitting on her chest. She has not had recurrent symptoms like this. She has had some aching in her upper arms. She has taken nitroglycerin once for this and believes that it helped. Her arms do have some muscle tenderness to touch. She has to hand wheel her chair which is likely the cause of this symptom. She is mostly sedentary and sits in a wheelchair, her legs hanging dependently. Her breathing has been unlabored, no PND, orthopnea. She does get some swelling in her lower extremities which is not unusual. She is nonambulatory due to a left transmetatarsal amp with current heel ulcer and right foot issues. When the wound heals she is hopeful to have a boot made so that she can then be able to walk short distances. No presyncope, syncope or falls. [facility] Medical History Hernia Strangulated hernia of abdominal wall (~04/2023) Type 2 diabetes mellitus with unspecified complications Essential hypertension Hx of myocardial infarction Broken ankle Complete amputation of left foot CKD (chronic kidney disease) stage 4, GFR 15-29 ml/min CKD (chronic kidney disease) Acute and subacute ischemic heart disease Acute hyperglycemia Amputation of left foot Kidney disease High cholesterol CAD (coronary artery disease) HTN (hypertension) Diabetes Surgical History History of cholecystectomy History of gastric stapling History of lumpectomy Family History Mother Diabetes Father Diabetes Social History Household Members: None Housing: Apartment Do you presently have visiting nurse or other home services: Yes (Visiting nurse) Alcohol intake: never Patient Tobacco Use Status: Never used Tobacco Advance Directives Date on File: 01/28/21 service: No Review of Systems Const All systems reviewed & are unremarkable except as noted in HPI and below Denies weakness ENT Denies dizziness Card Denies chest pain, Denies chest pain with activity, Denies syncope, Denies rapid heart rate, Denies pedal edema, Denies edema, Denies leg edema, Denies lightheadedness, Denies palpitations, Denies dyspnea, Denies dyspnea on exertion and Denies orthopnea Resp Denies cough, Denies dyspnea and Denies dyspnea on exertion GI Denies hematochezia and Denies change in stool character Musc Details: in wheelchair. Wound on left foot. Reports abnormal gait, Denies muscle cramps, Reports muscle weakness, Denies numbness, Reports radiating pain into limb (arms) and Denies tingling Neuro Reports abnormal gait, Denies dizziness, Denies syncope, Denies numbness, Denies tingling and Denies weakness Endo Denies palpitations Physical Exam Vital Signs: Last Vital Signs Pulse 86 11/05/23 09:56 BP 118/60 11/05/23 09:56 Const Other: Obese - sitting in wheelchair General: cooperative, healthy appearing, comfortable and no acute distress Orientation/consciousness: patient oriented x3 Neck Neck: Yes normal visual inspection and Yes no JVD Resp Effort & Inspection: normal respiratory effort Auscultation: clear to auscultation bilaterally, no rales and no rhonchi Cardio Jugular venous distension: no JVD Rate: regular rate Rhythm: regular rhythm Heart sounds: S1 normal heart sound present, S2 normal heart sound present, no murmurs and no rubs Neuro General: patient oriented x3 Extrem Other: transmetatarsal amputation left foot. Right foot in specially desiged boot. Psych Appearance: grossly normal Mental Status: mental status grossly normal Speech and movement: Normal speech and movement present Assessment & Plan Assessment & Plan (1) NSTEMI (non-ST elevated myocardial infarction): Code(s): I21.4 - Non-ST elevation (NSTEMI) myocardial infarction Category: Medical Plan: Recent [facility] admission, July 2023, for chest discomfort. She ruled in for NSTEMI. Cardiac catheterization showed 95% distal RCA stenosis. She had PCI/stent to the mid to distal RCA. She also has known SECURITY PROJECT MANAGER of the LAD with collaterals, patent stent to D1. She has not had any recurrent chest discomfort since that time. She is mostly sedentary and uses a wheelchair for mobility. She has an ulcer on her left heel and is hoping to restart ambulation once that has healed. At this time she is not a good candidate for cardiac rehab. She is reporting some arm aching at times. She does have reproducible symptoms with palpation and range of motion. This is most likely musculoskeletal discomfort.. Will have her continue on aspirin indefinitely. Continue Plavix uninterrupted for at least 1 year post stent. Continue high-dose atorvastatin. Continue isosorbide 30 mg daily. She has a known SECURITY PROJECT MANAGER of the LAD and may have anginal symptoms if she becomes more ambulatory.. Signs and symptoms of angina reviewed with her in detail. Cardiology follow-up in 3-4 months, sooner if needed (2) Atherosclerotic cardiovascular disease: Code(s): I25.10 - Atherosclerotic heart disease of [place] coronary artery without angina pectoris Category: Medical Plan: As above (3) S/P cardiac cath: Comment: 07/15/2023, proximal LAD 100% SECURITY PROJECT MANAGER, collateral from right PDA, distal RCA with prior stent to 95% stenosis, PCI to the mid to distal RCA with new YAZMIN, patent stent in D1. Code(s): Z98.890 - Other specified postprocedural states Category: Surgical Plan: As above (4) HTN (hypertension): Code(s): I10 - Essential (primary) hypertension Category: Medical Plan: Normal at this time, 118/60. No medication changes made. (5) High cholesterol: Code(s): E78.00 - Pure hypercholesterolemia, unspecified Category: Medical Plan: [place] LDL goal less than 70. She is currently on high-dose atorvastatin. No recent lipid profile in our system. Will plan to update next visit. Plan Time spent on chart review, documentation, interview and assessment Coding Level of Care Code Est Pt Level 4 (37826) Diagnoses NSTEMI (non-ST elevated myocardial infarction) I21.4 Atherosclerotic cardiovascular disease I25.10 S/P cardiac cath Z98.890 HTN (hypertension) I10 High cholesterol E78.00 Time Spent (min) 30
== END 2023-11-05 10:46 | disposition home or self-care (01) ==
PROVIDERS: PCP Internal Medicine Endocrinology, Diabetes & Metabolism; Visit Provider Nurse Practitioner Family
DX: I21.4 Non-ST elevation (NSTEMI) myocardial infarction (principal); I25.10 Atherosclerotic heart disease of native coronary artery without angina pectoris; Z98.890 Other specified postprocedural states; I10 Essential (primary) hypertension; E78.00 Pure hypercholesterolemia, unspecified
CPT/HCPCS: 99214

== ENCOUNTER → 2023-11-05 09:51 | Outpatient (BNVA) | payer OTHER, SELFPAY | PROVIDERS: PCP Internal Medicine Endocrinology, Diabetes & Metabolism; Visit Provider Nurse Practitioner Family ==

== ENCOUNTER 2024-01-05 14:04 | Emergency (ER) | payer OTHER, SELFPAY ==
[2024-01-05] VITALS (7 sets, daily range): BP systolic 123–197; BP diastolic 39–80; PULSE 65–82; RESP 12–17; TEMP 36.6–36.8; O2SAT 97–100; BMI 42.8; BMI 48.9
--- NOTE | 2024-01-05 | ECG_ITS ---
Test Reason : CHEST PAIN Blood Pressure : / mmHG Vent. Rate : 077 BPM Atrial Rate : 077 BPM P-R Int : 186 ms QRS Dur : 102 ms QT Int : 374 ms P-R-T Axes : 047 023 -14 degrees QTc Int : 423 ms Normal sinus rhythm Possible Inferior infarct (cited on or before 12-APR-2023) ST & T wave abnormality, consider lateral ischemia Abnormal ECG When compared with ECG of 12-APR-2023 12:18, OK interval has decreased Criteria for Anterior infarct are no longer Present Non-specific change in ST segment in Anterior leads T wave inversion now evident in Inferior leads T wave inversion more evident in Lateral leads Referred By: Generic ED Physician Electronically Signed By:AB LEAHY
--- NOTE | 2024-01-05 15:35 | MHC.CM.ED ---
Received notification from Lisset CARRASQUILLO that patient is active with their agency. Return referral sent via [facility] so they can follow for d/c needs.
[2024-01-05 15:58] LABS: MANUAL DIFF FLAG NO
[2024-01-05 15:59] LABS: Basophils Percent Auto 0.4 % (0-2); Eosinophils Absolute Auto 0.3 X10*3/uL (0.0-0.4); Hematocrit 35.7 % (37.0-47.0); Hemoglobin 10.9 g/dl (12.0-16.0); Imm Gran Abs Auto 0.04 X10*3/uL (0.00-0.03); Imm Gran Pct Auto 0.4 % (0.0-0.4); Lymphocytes Absolute Auto 1.8 X10*3/uL (1.2-4.9); Lymphocytes Percent Auto 16.6 % (20-40); Mean Corpuscular HGB Conc 30.5 g/dl (31.0-35.0); Mean Corpuscular Hemoglobin 28.7 pg (27.0-33.0); Mean Corpuscular Volume 93.9 fL (80.0-98.0); Mean Platelet Volume 11.2 fL (9.4-12.3); Monocytes Absolute Auto 1.2 X10*3/uL (0.1-1.2); Monocytes Percent Auto 11.5 % (2-11); Neutrophils Absolute Auto 7.4 x10*3/uL (2.0-8.3); Neutrophils Percent Auto 68.1 % (45-73); Platelet Count 326 X10*3/uL (160-400); Red Cell Distribution Width 15.5 % (11.0-16.0); White Blood Count 10.8 X10*3/uL (4.8-10.8)
[2024-01-05 16:05] LABS: Prothrombin Time 11.3 SEC (10.9-12.4)
[2024-01-05 16:16] LABS: Alanine Aminotransferase 5 U/L (0-31); Albumin Level 3.3 g/dL (3.5-5.0); Alkaline Phosphatase 119 U/L (39-117); Anion Gap 12 (12-20); Aspartate Amino Transferase 12 U/L (5-31); Bilirubin Total 0.3 mg/dL (0.0-1.0); Blood Urea Nitrogen 42 mg/dL (9-16); Calcium 8.8 mg/dL (8.4-10.2); Carbon Dioxide 21 mmol/L (22-29); Chloride 115 mmol/L (96-108); Estimated Glomerular Filt Rate 28; Glucose Random 182 mg/dL (60-115); Magnesium 1.9 mg/dL (1.6-2.6); Potassium 5.4 mmol/L (3.3-5.1); Sodium 143 mmol/L (135-145); Total Protein 7.4 g/dL (6.5-8.0)
--- NOTE | 2024-01-05 16:19 | ED_ITS ---
HPI - Chest Pain General Chief Complaint: Chest Pain Stated Complaint: CP X5D FROM L SHOULDER,HOME NITRO W/O RELIEF Time Seen by Provider: 01/05/24 16:16 History of Present Illness ED Provider: matilda FRASER narrative: Patient is 73 years old with history of diabetes hypertension coronary artery disease status post stent placement RCA in 2019 and another in 09/26 comes here for for 5 days of mid chest pain using nitroglycerin to help in the pain on aspirin and Plavix pain is getting worse got worse since midnight last with pain in the left neck and left arm also no diaphoresis no nausea no vomiting patient received 324 mg of aspirin by EMS currently patient denied any chest since patient had stent in 10/26 patient is been less active with increased shortness of breath on any movement has a right ankle fracture and left metatarsal amputation lives alone Related Data Home Medications ?Medication ?Instructions ?Recorded ?Confirmed atorvastatin 80 mg tablet 80 mg PO DAILY 05/20/21 11/05/23 gabapentin 300 mg capsule 300 mg PO TID 05/20/21 11/05/23 omeprazole 20 mg capsule,delayed 20 mg PO DAILY 05/20/21 11/05/23 release Probiotic 1 cap PO DAILY 04/12/23 11/05/23 dulaglutide 0.75 mg/0.5 mL 0.75 mg subcut ABRAMS 04/12/23 11/05/23 [facility] sodium zirconium cyclosilicate 10 10 g PO MOWEFR 04/12/23 11/05/23 gram oral powder packet (Lokelma) Previous Rx's ?Medication ?Instructions ?Recorded polyethylene glycol 3350 17 gram 17 g PO DAILY PRN Constipation #15 01/27/21 oral powder packet ea aspirin 81 mg tablet,delayed 81 mg PO DAILY #90 tabs 01/01/22 release (Adult Low Dose Aspirin) isosorbide mononitrate 30 mg 30 mg PO DAILY #90 tabs 08/09/23 tablet,extended release 24 hr clopidogrel 75 mg tablet (Plavix) 75 mg PO DAILY #30 tabs 08/18/23 nitroglycerin 0.4 mg sublingual 0.4 mg sublingual Q5M PRN chest 11/22/23 tablet pain 90 days #75 tabs metoprolol tartrate 25 mg tablet 25 mg PO BID 90 days #180 tabs 12/20/23 Allergies Allergy/AdvReac Type Severity Reaction Status Date / Time Sulfa (Sulfonamide Allergy Mild LOOPY, Verified 01/05/24 14:24 Antibiotics) memory contrast dye AdvReac Mild itchy Uncoded 01/05/24 14:24 Review of Systems 2 Review of Systems: Yes all other systems are reviewed and are negative [facility] Past Medical History Medical History Hernia Strangulated hernia of abdominal wall (~04/2023) Type 2 diabetes mellitus with unspecified complications Essential hypertension Hx of myocardial infarction Broken ankle Complete amputation of left foot CKD (chronic kidney disease) stage 4, GFR 15-29 ml/min CKD (chronic kidney disease) Acute and subacute ischemic heart disease Acute hyperglycemia Amputation of left foot Kidney disease High cholesterol CAD (coronary artery disease) HTN (hypertension) Diabetes Surgical History History of cholecystectomy History of gastric stapling History of lumpectomy Family History Family History Mother Diabetes Father Diabetes Social History Social History Household Members: None Housing: Apartment Do you presently have visiting nurse or other home services: Yes (Visiting nurse) Alcohol intake: never Patient Tobacco Use Status: Never used Tobacco Smoked in Last 30 Days: No Use of substances other than those prescribed or required for medical reasons: No Advance Directives: Yes Advance Directives on File: Yes Advance Directives Date on File: 01/28/21 Do you have a plan to hurt others: No Plan service: No Physical Exam 2 Vital Signs: Vital Signs: Last Vital Signs Temp 98.3 F 01/05/24 20:45 Pulse 80 01/05/24 20:45 Resp 14 01/05/24 20:45 BP 139/72 01/05/24 20:45 Pulse Ox 98 01/05/24 20:45 O2 Del Method Nasal Cannula 01/05/24 20:45 O2 Flow Rate 2 01/05/24 20:45 BMI result Body Mass Index 48.9 Appearance: Alert. Oriented X3. No acute distress. Eyes: No pallor or icterus ENT: Pharynx normal. Oral Mucosa moist Neck: Normal inspection. Neck supple. CVS: Normal heart rate and rhythm. Pulses normal. Respiratory: No respiratory distress. Equal air entry bilateral, no wheezing/rales/rhonchi Abdomen: Soft and nontender. Bowel sounds are present, no mass palpable, no CVA tenderness Skin: Skin warm and dry. Normal skin color. Normal skin turgor. Extremities: No lower extremity edema. No calf tenderness Neuro: Oriented X 3. No motor deficit. Medications Administered Discontinued Medications Generic Name Dose Route Start Last Admin Trade Name Freq PRN Reason Stop Dose Admin Heparin Sodium (Porcine) 5,000 unit 01/05/24 17:23 01/05/24 17:48 Heparin Sodium,Porcine 5,000 Unit/Ml Vial IVPUSH 01/05/24 17:24 5,000 unit ONCE ONE Administration Sodium Chloride 1,000 mls @ 999 mls/hr 01/05/24 17:23 01/05/24 19:30 Ns IV 01/05/24 18:23 Infused .Q1H1M ONE Infusion Heparin Sodium/Sodium Chloride 25,000 unit in 250 mls @ 0 mls/hr 01/05/24 20:30 01/05/24 20:39 Heparin Sodium,Porcine/1/2ns IVCONT 7.28 units/kg/hr .Q0M JILLIAN 10 mls/hr Administration Protocol Per Protocol Morphine Sulfate 4 mg 01/05/24 20:24 01/05/24 20:33 Morphine Sulfate 4 Mg/Ml Cartridge IVPUSH 01/05/24 20:25 4 mg ONCE ONE Administration Protocol Nitroglycerin 1 inch 01/05/24 17:23 01/05/24 17:50 Nitroglycerin 2 % Oint 1 Gm Packet TRANSDERMA 01/05/24 17:24 1 inch ONCE ONE Administration Ondansetron HCl 4 mg 01/05/24 20:24 01/05/24 20:32 Ondansetron Hcl 4 Mg/2 Ml Vial IVPUSH 01/05/24 20:25 4 mg ONCE ONE Administration Medical Decision Making Medical Decision Making [facility] Narrative: Patient with significant coronary disease status post stent placement in 09/26 on Plavix and aspirin comes here for recurrence of the chest pain for last 5 days which getting worse since last night change in character to pressure radiating to the left shoulder and left neck when patient arrived patient was chest pain- free during stay in the ER about 1 hours prior started having pain again which with heaviness repeat troponin increased from 125 to 161 now repeat EKG showed worsening of ST depression inferolateral leads. Case discussed Dr. bowser rn documentation would prefer patient's got to [facility] for further evaluation maybe catheterization in the a.m. patient was given bolus 5000 units of heparin and started on heparin drip nitro paste was applied morphine 4 mg was given Case discussed cardiology Dr. ornelas will admit patient to [facility] doctor Manuel will admit the patient Differential Diagnosis Differential Diagnoses: The differential diagnosis associated with the presentation includes Non-STEMI/stemi/ACS Admission/Observation Consideration of admission/observation: Escalation of care including admission/observation considered Lab Data MDM Lab Attestation statement: I reviewed the patient's lab results. 01/05/24 15:52 01/05/24 15:52 Labs: Lab Results 01/05/24 01/05/24 Range/Units 15:52 19:09 WBC 10.8 (4.8-10.8) X10*3/uL RBC 3.80 L (4.20-5.50) X10*6/uL Hgb 10.9 L (12.0-16.0) g/dl Hct 35.7 L (37.0-47.0) % MCV 93.9 (80.0-98.0) fL MCH 28.7 (27.0-33.0) pg MCHC 30.5 L (31.0-35.0) g/dl RDW 15.5 (11.0-16.0) % Plt Count 326 (160-400) X10*3/uL MPV 11.2 (9.4-12.3) fL Immature Gran % (Auto) 0.4 (0.0-0.4) % Neut % (Auto) 68.1 (45-73) % Lymph % (Auto) 16.6 L (20-40) % [place] % (Auto) 11.5 H (2-11) % Eos % (Auto) 3.0 (0-4) % Baso % (Auto) 0.4 (0-2) % Lymph # (Auto) 1.8 (1.2-4.9) X10*3/uL [place] # (Auto) 1.2 (0.1-1.2) X10*3/uL Eos # (Auto) 0.3 (0.0-0.4) X10*3/uL Baso # (Auto) 0.0 (0.0-0.2) X10*3/uL Abs Immat Gran (auto) 0.04 H (0.00-0.03) X10*3/uL Absolute Neuts (auto) 7.4 (2.0-8.3) x10*3/uL Absolute Nucleated RBC 0.000 (0.0-0.012) X10*3/uL Nucleated RBC % (auto) 0.0 (0.0-0.2) /100WBC PT 11.3 (10.9-12.4) SEC INR 1.0 (0.9-1.1) APTT 30.7 (26.0-36.8) SEC Sodium 143 (135-145) mmol/L Potassium 5.4 H (3.3-5.1) mmol/L Chloride 115 H (96-108) mmol/L Carbon Dioxide 21 L (22-29) mmol/L Anion Gap 12 (12-20) BUN 42 H (9-16) mg/dL Creatinine 1.76 H (0.5-1.4) mg/dL Estim Creat Clear Calc 37.0 Estimated GFR 28 Random Glucose 182 H (60-115) mg/dL Calcium 8.8 D (8.4-10.2) mg/dL Magnesium 1.9 (1.6-2.6) mg/dL Total Bilirubin 0.3 (0.0-1.0) mg/dL AST 12 (5-31) U/L ALT 5 (0-31) U/L Alkaline Phosphatase 119 H (39-117) U/L Troponin I High Sens 125.7 H* D 161.8 H* (<3.5-17.0) ng/L Total Protein 7.4 (6.5-8.0) g/dL Albumin 3.3 L (3.5-5.0) g/dL Independent Interpretation I performed an independent interpretation of an: EKG Interpretation: Normal sinus rhythm heart rate 77 beats per minute nonspecific STT wave changes T inversion in the lateral leads no acute ST elevation Repeat EKG 1932 showed heart rate [address] depression 1 to aVL V4 V5 more prominent than in the previous EKG poor progression of R-wave Critical Care Time Critical Care Time Critical Care Time: Yes Total Critical Care Time: 60 Attestation: The patient was critically ill with a high probability of imminent or life threatening deterioration. I spent greater than ?65??minutes of discontinuous time evaluating the patient,delivering critical care at the bedside, discussing and evaluating pertinent data with consultants. Critical care time does not include time spent performing separately billable procedures or teaching. Total time spent performing critical care was 60???minutes. Discharge Plan Discharge Clinical Impression: Non-STEMI (non-ST elevated myocardial infarction), CKD (chronic kidney disease) Patient Disposition: er [facility] Hospital Transfer Details: [facility] Cardiology unit Prescriptions: No Action clopidogrel [Plavix] 75 mg tablet 75 mg PO DAILY Qty: 30 5RF nitroglycerin 0.4 mg tablet, sublingual 0.4 mg sublingual Q5M PRN (Reason: chest pain) 90 Days Qty: 75 0RF Rx Instructions: do not exceed 3 doses per episode metoprolol tartrate 25 mg tablet 25 mg PO BID 90 Days Qty: 180 3RF polyethylene glycol 3350 17 gram Powder In Packet 17 g PO DAILY PRN (Reason: Constipation) Qty: 15 0RF atorvastatin 80 mg tablet 80 mg PO DAILY Trulicity 0.75 mg/0.5 mL pen injector 0.75 mg subcut ABRAMS Lokelma 10 gram Powder In Packet 10 g PO MOWEFR Probiotic 1 cap PO DAILY gabapentin 300 mg capsule 300 mg PO TID omeprazole 20 mg capsule,delayed release(DR/EC) 20 mg PO DAILY aspirin [Adult Low Dose Aspirin] 81 mg tablet,delayed release (DR/EC) 81 mg PO DAILY Qty: 90 3RF isosorbide mononitrate 30 mg tablet extended release 24 hr 30 mg PO DAILY Qty: 90 3RF Interventions: Acute Care Transfer Worksheet (ED) Last Done: 01/05/24 20:45 Discharge Date/Time: 01/05/24 20:45 Print Language: Salvadorean
[2024-01-05 17:20] LABS: Troponin-I High Sensitivity 125.7 ng/L (<3.5-17.0)
[2024-01-05] MEDS: Heparin Sodium,Porcine 5,000 UNIT/ML VIAL 5000 UNIT IVPUSH (17:48)
[2024-01-05] MEDS: 0.9 % Sodium Chloride 1,000 ML 999 ML IV (17:50)
[2024-01-05] MEDS: Nitroglycerin 2 % Oint 1 GM Packet 1 INCH TRANSDERMA (17:50)
--- NOTE | 2024-01-05 19:11 | PC.NURSE ---
Patient is alert and oriented x4, VSS. Patient denies chest pain at present, she c/o generalized pain 3/10. Patient reports chronic urinary incontinence with hesitancy, heraclio care provided, purewick applied. Patient is able to make her needs known, call [facility]los in patient's reach.
--- NOTE | 2024-01-05 19:23 | PC.NURSE ---
Patient reports left sided chest pain 5/10 after heraclio care and repositioning in bed. Dr. Wheat notified.
--- NOTE | 2024-01-05 19:31 | ECG_ITS ---
Test Reason : CP Blood Pressure : / mmHG Vent. Rate : 080 BPM Atrial Rate : 080 BPM P-R Int : 204 ms QRS Dur : 100 ms QT Int : 382 ms P-R-T Axes : 058 027 120 degrees QTc Int : 440 ms Normal sinus rhythm Anteroseptal infarct , age undetermined Marked ST abnormality, possible lateral subendocardial injury Abnormal ECG When compared with ECG of 05-JAN-2024 14:34, Anteroseptal infarct is now Present T wave inversion no longer evident in Inferior leads Referred By: Paolo Linder Electronically Signed By:AB LEAHY
[2024-01-05 19:46] LABS: Troponin-I High Sensitivity 161.8 ng/L (<3.5-17.0)
--- NOTE | 2024-01-05 19:59 | PC.NURSE ---
EKG completed by organic preparation technician and read by Dr. Wheat.
[2024-01-05 20:30] LABS: Partial Thromboplastin Time 30.7 SEC (26.0-36.8)
[2024-01-05] MEDS: ondansetron HCL 4 MG/2 ML VIAL IVPUSH (20:32)
[2024-01-05] MEDS: Morphine Sulfate 4 MG/ML CARTRIDGE IVPUSH (20:33)
[2024-01-05] MEDS: Heparin Sodium,Porcine/1/2NS 25,000 UNIT/250 ML IV.SOLN 10 UNIT IVCONT (20:39)
--- NOTE | 2024-01-05 20:42 | PC.NURSE ---
Patient medicated per JUN. Heparin drip started and infusing at 7.28 units/kg/hr, supplemental O2 applied at 2 LPM NC, patient maintaining stable O2 Sat at 95-96%.
--- NOTE | 2024-01-05 21:05 | PC.NURSE ---
Nurse to nurse report called to [facility], spoke to CORAL Ramirez , plan for pateint to be transported to [facility] MS unit room 21 bed A.
== END 2024-01-05 20:45 | disposition short-term general hospital (02) ==
PROVIDERS: Emergency Provider Internal Medicine; PCP Internal Medicine Endocrinology, Diabetes & Metabolism
DX: I21.4 Non-ST elevation (NSTEMI) myocardial infarction (principal); E11.22 Type 2 diabetes mellitus with diabetic chronic kidney disease; I12.9 Hypertensive chronic kidney disease with stage 1 through stage 4 chronic kidney disease, or unspecified chronic kidney disease; N18.4 Chronic kidney disease, stage 4 (severe); E78.5 Hyperlipidemia, unspecified; Z79.82 Long term (current) use of aspirin; Z79.02 Long term (current) use of antithrombotics/antiplatelets; Z79.85 Long-term (current) use of injectable non-insulin antidiabetic drugs
CPT/HCPCS: 36415; 80053; 83735; 84484; 85025; 85610; 85730; 93005; 96361; 96374; 96375; 99285; J1644; J2270; J2405